=== PATIENT | male | born 1955 | race Caucasian/White ===

== ENCOUNTER 2019-10-10 11:22 | Outpatient (CLI) | payer OTHER | END 2019-10-10 11:23 | disposition home or self-care (01) | LOC: LAB 11:22 | PROVIDERS: ATTEND Internal Medicine | DX: E87.5 Hyperkalemia (principal) | CPT/HCPCS: 36415; 84132 ==

== ENCOUNTER 2022-12-18 14:51 | Outpatient (CLI) | payer MEDICARE, OTHER | END 2022-12-18 23:59 | disposition short-term general hospital (02) | LOC: EMS 14:51 | DX: E11.65 Type 2 diabetes mellitus with hyperglycemia (principal); I10 Essential (primary) hypertension; R53.1 Weakness; R53.81 Other malaise | CPT/HCPCS: A0425; A0429 ==

== ENCOUNTER 2023-03-31 18:34 | Outpatient (CLI) | payer MEDICARE, OTHER | END 2023-03-31 23:59 | disposition critical access hospital (66) | LOC: EMS 18:34 | DX: R06.03 Acute respiratory distress (principal) | CPT/HCPCS: A0425; A0427 ==

== ENCOUNTER 2023-03-31 18:53 | Inpatient (IN) | payer MEDICARE, OTHER ==
[2023-03-31] MEDS ORDERED: NITROGLYCERIN 50 MG/250 ML 50 MG/250 ML BOTTLE IV STA (18:59)
[2023-03-31] MEDS ORDERED: FUROSEMIDE 40 MG/4 ML VIAL IVP STA (18:59)
[2023-03-31] MEDS ORDERED: NITROGLYCERIN SL 0.4 MG TABLET SL STA (18:59)
--- NOTE | 2023-03-31 19:03 | ED Physician Documentation ---
PD HPI DYSPNEA - Stated complaint Stated Complaint: DIFFICULTY BREATHING - Chief complaint Chief Complaint: Resp - History obtained from History obtained from: Patient, EMS - Additional information Additional information: 67-year-old gentleman with history of A-fib on xarelto, MD, hypertension, hypercholesterolemia, and diabetes. He has had pedal edema for the last 4 weeks or so that is worsening over the last 2 days has had chest congestion worsening trouble breathing. It is not associated with fever or chest pain. On EMS arrival they found him to have a saturation of 82% on room air with respiratory distress. On route he received a DuoNeb, 40 mg of IV Lasix, and 25 mg of IV diltiazem for rapid atrial fibrillation and was placed on CPAP with significant improvement in his symptoms. PD PAST MEDICAL HISTORY - Past Medical History Cardiovascular: Hypertension, High cholesterol, Atrial fibrillation Respiratory: None Endocrine/Autoimmune: Type 2 diabetes GI: None : None HEENT: None Psych: None Musculoskeletal: None Derm: None - Past Surgical History General: Hiatal hernia repair - Present Medications Home Medications: Ambulatory Orders Medication Instructions Recorded Confirmed Atorvastatin [Lipitor] 40 mg ORAL DAILY 03/31/23 03/31/23 Insulin Glargine [Lantus Solostar] 12 unit SUBQ QPM 03/31/23 03/31/23 Metoprolol Tartrate [Lopressor] 50 mg PO BID 03/31/23 03/31/23 Rivaroxaban [Xarelto] 20 mg PO QPM 03/31/23 03/31/23 lisinopriL [Zestril] 5 mg PO DAILY 03/31/23 03/31/23 metFORMIN [Glucophage] 500 mg PO BIDWM 03/31/23 03/31/23 - Allergies Allergies/Adverse Reactions: Allergies Allergy/AdvReac Type Severity Reaction Status Date / Time piperacillin [From Zosyn] Allergy Rash Verified 03/31/23 19:03 tazobactam [From Zosyn] Allergy Rash Verified 03/31/23 19:03 PD ED PE NORMAL - Vitals Vital signs reviewed: Yes - General General: Other (He is tachypneic but speaking in full sentences. ) - HEENT HEENT: PERRL, EOMI - Neck Neck: Supple, no meningeal sign, No bony TTP - Cardiac Cardiac: Other (Irregularly irregular. No clear murmur but heart sounds somewhat obfuscated by breath sounds.) - Respiratory Respiratory: Other (Rhonchorous diminished and wheezy throughout) - Abdomen Abdomen: Non tender - Back Back: No CVA TTP, No spinal TTP - Derm Derm: Normal color, Warm and dry - Extremities Extremities: Other (4+ pitting pedal edema to mid thigh, Symmetric) - Neuro Neuro: Alert and oriented X 3, Normal speech Results - Vitals Vitals: Vital Signs - 24 hr 03/31/23 03/31/23 03/31/23 18:55 19:10 19:18 Temperature 36.5 C Heart Rate 87 90 91 Respiratory 32 H 24 28 H Rate Blood Pressure 153/73 H 136/83 H O2 Saturation 95 96 If not protocol 4 4 : Oxygen Flow, liters/minute 03/31/23 19:37 Temperature Heart Rate 83 Respiratory 18 Rate Blood Pressure 129/72 O2 Saturation 96 If not protocol 4 : Oxygen Flow, liters/minute Oxygen O2 Source Nasal cannula Oxygen Flow Rate 4 - EKG (time done) 1858 EKG releavant findings:: EKG personally interpreted by author of this note. Relevant findings are: Rate: Rate (enter#) (85) Rhythm: Atrial fibrillation [place]: Normal Ischemia: Q waves (v1-v3), Non specific changes. No: ST elevation c/w ischemia, ST depression Compare to prior EKG: Old EKG unavailable Computer interpretation: Agree with computer - Labs Labs: Laboratory Tests 03/31/23 03/31/23 03/31/23 19:04 19:09 19:09 WBC 11.1 H RBC 4.96 Hgb 14.6 Hct 45.7 MCV 92.1 MCH 29.4 MCHC 31.9 L RDW 14.5 Plt Count 241 MPV 10.5 Neut # (Auto) 8.5 H Lymph # (Auto) 1.8 Scott # (Auto) 0.5 Eos # (Auto) 0.2 Baso # (Auto) 0.0 Absolute Nucleated RBC 0.00 Nucleated RBC % 0.0 Sodium 138 Potassium 3.5 Chloride 107 Carbon Dioxide 21 Anion Gap 10.0 BUN 21 H Creatinine 1.0 Estimated GFR (MDRD) 74 L Glucose 331 H POC Whole Bld Glucose 344 H Calcium 8.6 Phosphorus 4.5 Magnesium 1.5 L Total Bilirubin 0.9 AST 24 ALT 33 Alkaline Phosphatase 112 Troponin I High Sens B-Natriuretic Peptide Total Protein 7.5 Albumin 3.9 Globulin 3.6 Albumin/Globulin Ratio 1.1 03/31/23 03/31/23 19:09 19:09 WBC RBC Hgb Hct MCV MCH MCHC RDW Plt Count MPV Neut # (Auto) Lymph # (Auto) Scott # (Auto) Eos # (Auto) Baso # (Auto) Absolute Nucleated RBC Nucleated RBC % Sodium Potassium Chloride Carbon Dioxide Anion Gap BUN Creatinine Estimated GFR (MDRD) Glucose POC Whole Bld Glucose Calcium Phosphorus Magnesium Total Bilirubin AST ALT Alkaline Phosphatase Troponin I High Sens 14.6 B-Natriuretic Peptide 553 H Total Protein Albumin Globulin Albumin/Globulin Ratio - Rads (name of study) Single view chest x-ray demonstrates cardiomegaly and diffuse bilateral interstitial opacities suggestive of pulmonary edema/CHF Relevant Findings:: Final report received, EMP independent interpretation of test PD Medical Decision Making - ED course ED course: 67-year-old gentleman brought in by paramedics. Prehospital he was in respiratory distress with signs and symptoms of CHF and A-fib with RVR. Prehospital treatments with Lasix, diltiazem, and DuoNeb improved him significantly. He also received CPAP. We are able to de-escalate the CPAP on arrival which the patient did not like anyways. His A-fib with RVR had resolved, still in A-fib but rate controlled. Treatment in the emergency department consisted of another dose of IV Lasix, sublingual nitroglycerin and high-dose drip and an albuterol neb. He continued to improve and was on a nasal cannula. Telehospitalist paged for admission at 7:40 PM. He also received 8 units of IV insulin in the department for his blood sugar. CBC showing mild leukocytosis, otherwise unremarkable. CMP showing hyperglycemia at 331 and low magnesium at 1.5 which will be repleted IV. Troponin negative. BNP elevated at 553. Patient presented to Dr. Miller at 7:54 PM. He would like to DC the nitro drip so that the patient to be on the floor and patient is stable enough for that at this point. - Critical Care Time(min): 40 Time Includes: Direct patient care, Review records, Reassess patient, Document care, Coordinate care, Medical consult, Family consult for tx dec ( at bedside shortly after arrival.) Data interpretation: Labs, Pulse ox Procedures included in critical care time: Peripheral IV Procedures excluded from critical care time: EKG Departure - Departure Disposition: 66 [facility] DC/Xfer Clinical Impression: Atrial fibrillation with RVR CHF (congestive heart failure) Qualifiers: Heart failure type: unspecified Heart failure chronicity: acute Qualified Code(s): I50.9 - Heart failure, unspecified Pulmonary edema Qualifiers: Chronicity: acute Qualified Code(s): J81.0 - Acute pulmonary edema Uncontrolled type 2 diabetes mellitus Qualifiers: Glycemic state: with hyperglycemia Qualified Code(s): E11.65 - Type 2 diabetes mellitus with hyperglycemia Condition: Serious
--- OUTSIDE RECORDS SUMMARY | 2023-03-31 19:12 | EXTERNAL MEDICAL SUMMARY RPT | Continuity of Care Document ---
Author Name Unknown Address [address] [place] [address] Phone Organization [facility] Address [address] [place] [address] Phone Care Team Providers Care Morning Nanny Name Role Phone Unavailable Unavailable Unavailable Emma Angel Unavailable Unavailable Allergies and Intolerances date description facility type (no date) Mild [facility] (unknown) (no date) piperacillin [facility] (unknown) (no date) tazobactam [facility] (unknown) Medications date description facility 2023-01-18 00:00 Cefadroxil [facility] 2023-01-18 00:00 Metoprolol Tartrate [facility] ital Problems date description facility 2023-01-15 00:00 Sepsis [facility] 2023-01-15 00:00 Atrial fibrillation with rapid ventricular response [facility] 2023-01-15 00:00 Cellulitis of left lower extrem ity [facility] 2023-01-16 00:00 Thrombocytopenia [facility] 2023-01-16 00:00 Hyponatremia [facility] 2023-01-16 00:00 Elevated troponin level [facility] 2023-01-16 12:01 Sepsis, unspecified organism [facility] 2023-01-16 12:01 Thrombocytopenia, unspecified [facility] 2023-01-16 12:01 Hypo-osmolality and hyponatremi [facility] 2023-01-16 12:01 Unspecified atrial fibrillation [facility] 2023-01-16 12:01 Cellulitis of left lower limb [facility] 2023-01-16 12:01 Hyperglycemia, unspecified [facility] 2023-01-16 12:01 Other specified abnormalities o f plasma proteins [facility] 2023-01-16 12:03 Sepsis, unspecified organism [facility] 2023-01-16 12:03 Thrombocytopenia, unspecified [facility] 2023-01-16 12:03 Hypo-osmolality and hyponatremi [facility] 2023-01-16 12:03 Unspecified atrial fibrillation [facility] 2023-01-16 12:03 Cellulitis of left lower limb [facility] 2023-01-16 12:03 Hyperglycemia, unspecified [facility] 2023-01-16 12:03 Other specified abnormalities o f plasma proteins [facility] 2023-01-16 12:22 Sepsis, unspecified organism [facility] 2023-01-16 12:22 Thrombocytopenia, unspecified [facility] 2023-01-16 12:22 Hypo-osmolality and hyponatremi [facility] 2023-01-16 12:22 Unspecified atrial fibrillation [facility] 2023-01-16 12:22 Cellulitis of left lower limb [facility] 2023-01-16 12:22 Hyperglycemia, unspecified [facility] 2023-01-16 12:22 Other specified abnormalities o f plasma proteins [facility] 2023-01-16 14:03 Sepsis, unspecified organism [facility] 2023-01-16 14:03 Thrombocytopenia, unspecified [facility] 2023-01-16 14:03 Hypo-osmolality and hyponatremi [facility] 2023-01-16 14:03 Unspecified atrial fibrillation [facility] 2023-01-16 14:03 Cellulitis of left lower limb [facility] 2023-01-16 14:03 Hyperglycemia, unspecified [facility] 2023-01-16 14:03 Other specified abnormalities o plasma proteins [facility] 2023-01-16 14:04 Sepsis, unspecified organism [facility] 2023-01-16 14:04 Thrombocytopenia, unspecified [facility] 2023-01-16 14:04 Hypo-osmolality and hyponatremi [facility] 2023-01-16 14:04 Unspecified atrial fibrillation [facility] 2023-01-16 14:04 Cellulitis of left lower limb [facility] 2023-01-16 14:04 Hyperglycemia, unspecified [facility] 2023-01-16 14:04 Other specified abnormalities o plasma proteins [facility] 2023-01-17 06:48 Sepsis, unspecified organism [facility] 2023-01-17 06:48 Thrombocytopenia, unspecified [facility] 2023-01-17 06:48 Hypo-osmolality and hyponatremi [facility] 2023-01-17 06:48 Unspecified atrial fibrillation [facility] 2023-01-17 06:48 Cellulitis of left lower limb [facility] 2023-01-17 06:48 Hyperglycemia, unspecified [facility] 2023-01-17 06:48 Other specified abnormalities o f plasma proteins [facility] 2023-01-18 08:29 Sepsis, unspecified organism [facility] 2023-01-18 08:29 Thrombocytopenia, unspecified [facility] 2023-01-18 08:29 Hypo-osmolality and hyponatremi [facility] 2023-01-18 08:29 Unspecified atrial fibrillation [facility] 2023-01-18 08:29 Cellulitis of left lower limb [facility] 2023-01-18 08:29 Hyperglycemia, unspecified [facility] 2023-01-18 08:29 Other specified abnormalities o f plasma proteins [facility] 2023-01-18 08:35 Sepsis, unspecified organism [facility] 2023-01-18 08:35 Thrombocytopenia, unspecified [facility] 2023-01-18 08:35 Hypo-osmolality and hyponatremi [facility] 2023-01-18 08:35 Unspecified atrial fibrillation [facility] 2023-01-18 08:35 Cellulitis of left lower limb [facility] 2023-01-18 08:35 Hyperglycemia, unspecified [facility] 2023-01-18 08:35 Other specified abnormalities o plasma [facility] 2023-01-18 09:31 Sepsis, unspecified organism [facility] 2023-01-18 09:31 Thrombocytopenia, unspecified [facility] 2023-01-18 09:31 Hypo-osmolality and hyponatremi [facility] 2023-01-18 09:31 Unspecified atrial fibrillation [facility] 2023-01-18 09:31 Cellulitis of left lower limb [facility] 2023-01-18 09:31 Hyperglycemia, unspecified [facility] 2023-01-18 09:31 Other specified abnormalities o [facility] proteins [facility] 2023-01-18 09:38 Sepsis, unspecified organism [facility] 2023-01-18 09:38 Thrombocytopenia, unspecified [facility] 2023-01-18 09:38 Hypo-osmolality and hyponatremi [facility] 2023-01-18 09:38 Unspecified atrial fibrillation [facility] 2023-01-18 09:38 Cellulitis of left lower limb [facility] 2023-01-18 09:38 Hyperglycemia, unspecified [facility] 2023-01-18 09:38 Other specified abnormalities o f plasma proteins [facility] 2023-01-18 09:58 Sepsis, unspecified organism [facility] 2023-01-18 09:58 Thrombocytopenia, unspecified [facility] 2023-01-18 09:58 Hypo-osmolality and hyponatremi [facility] 2023-01-18 09:58 Unspecified atrial fibrillation [facility] 2023-01-18 09:58 Cellulitis of left lower limb [facility] 2023-01-18 09:58 Hyperglycemia, unspecified [facility] 2023-01-18 09:58 Other specified abnormalities o f plasma proteins [facility] 2023-01-18 16:32 Sepsis, unspecified organism [facility] 2023-01-18 16:32 Thrombocytopenia, unspecified [facility] 2023-01-18 16:32 Hypo-osmolality and hyponatremi [facility] 2023-01-18 16:32 Unspecified atrial fibrillation [facility] 2023-01-18 16:32 Cellulitis of left lower limb [facility] 2023-01-18 16:32 Hyperglycemia, unspecified [facility] 2023-01-18 16:32 Other specified abnormalities o f [facility] Procedures date description facility 2023-01-15 00:00 US arterial duplex LE LT [facility] 2023-01-16 00:00 XR tibia fibula 2V [facility] 2023-01-15 00:00 X-ray of chest, single view [facility] 2023-01-16 00:00 XR ankle left, [facility] 2023-01-16 00:00 X-ray of left foot, two views [facility] Results/Labs test date author facility value unit interpretation Result panel 1 (unknown) (no date) (unknown) [facility] (no value) (units unknown) (unknown) Result panel 2 (unknown) (no date) (unknown) [facility] (no value) (units unknown) (unknown) Result panel 3 (unknown) (no date) (unknown) [facility] (no value) (units unknown) (unknown) Result panel 4 (unknown) (no date) (unknown) [facility] (no value) (units unknown) (unknown) Result panel 5 (unknown) (no date) (unknown) [facility] (no value) (units unknown) (unknown) Result panel 6 (unknown) (no date) (unknown) [facility] (no value) (units unknown) (unknown) Result panel 7 (unknown) (no date) (unknown) [facility] (no value) (units unknown) (unknown) Result panel 8 (unknown) (no date) (unknown) [facility] (no value) (units unknown) (unknown) Result panel 9 (unknown) (no date) (unknown) [facility] (no value) (units unknown) (unknown) Result panel 10 (unknown) (no date) (unknown) [facility] (no value) (units unknown) (unknown) Result panel 11 (unknown) (no date) (unknown) [facility] (no value) (units unknown) (unknown) Result panel 12 (unknown) (no date) (unknown) [facility] (no value) (units unknown) (unknown) Result panel 13 (unknown) (no date) (unknown) [facility] (no value) (units unknown) (unknown) Result panel 14 (unknown) (no date) (unknown) [facility] (no value) (units unknown) (unknown) Result panel 15 (unknown) (no date) (unknown) [facility] (no value) (units unknown) (unknown) Result panel 16 (unknown) (no date) (unknown) [facility] (no value) (units unknown) (unknown) Result panel 17 (unknown) (no date) (unknown) [facility] (no value) (units unknown) (unknown) Result panel 18 (unknown) (no date) (unknown) [facility] (no value) (units unknown) (unknown) Result panel 19 (unknown) (no date) (unknown) [facility] (no value) (units unknown) (unknown) Result panel 20 (unknown) (no date) (unknown) [facility] (no value) (units unknown) (unknown) Result panel 21 (unknown) (no date) (unknown) [facility] (no value) (units unknown) (unknown) Result panel 22 (unknown) (no date) (unknown) [facility] (no value) (units unknown) (unknown) Result panel 23 (unknown) (no date) (unknown) [facility] (no value) (units unknown) (unknown) Result panel 24 (unknown) (no date) (unknown) [facility] (no value) (units unknown) (unknown) Result panel 25 (unknown) (no date) (unknown) [facility] (no value) (units unknown) (unknown) Result panel 26 (unknown) (no date) (unknown) [facility] (no value) (units unknown) (unknown) Result panel 27 (unknown) (no date) (unknown) [facility] (no value) (units unknown) (unknown) Result panel 28 (unknown) (no date) (unknown) [facility] (no value) (units unknown) (unknown) Result panel 29 (unknown) (no date) (unknown) [facility] (no value) (units unknown) (unknown) Result panel 30 (unknown) (no date) (unknown) [facility] (no value) (units unknown) (unknown) Result panel 31 (unknown) (no date) (unknown) [facility] (no value) (units unknown) (unknown) Result panel 32 (unknown) (no date) (unknown) [facility] (no value) (units unknown) (unknown) Result panel 33 (unknown) (no date) (unknown) [facility] (no value) (units unknown) (unknown) Result panel 34 (unknown) (no date) (unknown) [facility] (no value) (units unknown) (unknown) Result panel 35 (unknown) (no date) (unknown) [facility] (no value) (units unknown) (unknown) Result panel 36 (unknown) (no date) (unknown) [facility] (no value) (units unknown) (unknown) Result panel 37 (unknown) (no date) (unknown) [facility] (no value) (units unknown) (unknown) Result panel 38 (unknown) (no date) (unknown) [facility] (no value) (units unknown) (unknown) Result panel 39 (unknown) (no date) (unknown) [facility] (no value) (units unknown) (unknown) Result panel 40 (unknown) (no date) (unknown) [facility] (no value) (units unknown) (unknown) Result panel 41 (unknown) (no date) (unknown) [facility] (no value) (units unknown) (unknown) Result panel 42 (unknown) (no date) (unknown) [facility] (no value) (units unknown) (unknown) Result panel 43 (unknown) (no date) (unknown) [facility] (no value) (units unknown) (unknown) Result panel 44 (unknown) (no date) (unknown) [facility] (no value) (units unknown) (unknown) Result panel 45 (unknown) (no date) (unknown) [facility] (no value) (units unknown) (unknown) Result panel 46 (unknown) (no date) (unknown) [facility] (no value) (units unknown) (unknown) Result panel 47 (unknown) (no date) (unknown) [facility] (no value) (units unknown) (unknown) Result panel 48 (unknown) (no date) (unknown) [facility] (no value) (units unknown) (unknown) Result panel 49 (unknown) (no date) (unknown) [facility] (no value) (units unknown) (unknown) Result panel 50 (unknown) (no date) (unknown) [facility] (no value) (units unknown) (unknown) Result panel 51 (unknown) (no date) (unknown) [facility] (no value) (units unknown) (unknown) Result panel 52 (unknown) (no date) (unknown) [facility] (no value) (units unknown) (unknown) Result panel 53 (unknown) (no date) (unknown) [facility] (no value) (units unknown) (unknown) Result panel 54 (unknown) (no date) (unknown) [facility] (no value) (units unknown) (unknown) Result panel 55 (unknown) (no date) (unknown) [facility] (no value) (units unknown) (unknown) Result panel 56 (unknown) (no date) (unknown) [facility] (no value) (units unknown) (unknown) Result panel 57 (unknown) (no date) (unknown) [facility] (no value) (units unknown) (unknown) Result panel 58 (unknown) (no date) (unknown) [facility] (no value) (units unknown) (unknown) Result panel 59 (unknown) (no date) (unknown) [facility] (no value) (units unknown) (unknown) Result panel 60 (unknown) (no date) (unknown) [facility] (no value) (units unknown) (unknown) Result panel 61 (unknown) (no date) (unknown) [facility] (no value) (units unknown) (unknown) Result panel 62 (unknown) (no date) (unknown) [facility] (no value) (units unknown) (unknown) Result panel 63 (unknown) (no date) (unknown) [facility] (no value) (units unknown) (unknown) Result panel 64 (unknown) (no date) (unknown) [facility] (no value) (units unknown) (unknown) Result panel 65 (unknown) (no date) (unknown) [facility] (no value) (units unknown) (unknown) Result panel 66 (unknown) (no date) (unknown) [facility] (no value) (units unknown) (unknown) Result panel 67 (unknown) (no date) (unknown) [facility] (no value) (units unknown) (unknown) Result panel 68 (unknown) (no date) (unknown) [facility] (no value) (units unknown) (unknown) Result panel 69 (unknown) (no date) (unknown) [facility] (no value) (units unknown) (unknown) Result panel 70 (unknown) (no date) (unknown) [facility] (no value) (units unknown) (unknown) Result panel 71 (unknown) (no date) (unknown) [facility] (no value) (units unknown) (unknown) Result panel 72 (unknown) (no date) (unknown) [facility] (no value) (units unknown) (unknown) Result panel 73 (unknown) (no date) (unknown) [facility] (no value) (units unknown) (unknown) Result panel 74 (unknown) (no date) (unknown) [facility] (no value) (units unknown) (unknown) Result panel 75 (unknown) (no date) (unknown) [facility] (no value) (units unknown) (unknown) Result panel 76 (unknown) (no date) (unknown) [facility] (no value) (units unknown) (unknown) Result panel 77 (unknown) (no date) (unknown) [facility] (no value) (units unknown) (unknown) Result panel 78 (unknown) (no date) (unknown) [facility] (no value) (units unknown) (unknown) Result panel 79 (unknown) (no date) (unknown) [facility] (no value) (units unknown) (unknown) Result panel 80 (unknown) (no date) (unknown) [facility] (no value) (units unknown) (unknown) Result panel 81 (unknown) (no date) (unknown) [facility] (no value) (units unknown) (unknown) Result panel 82 (unknown) (no date) (unknown) [facility] (no value) (units unknown) (unknown) Result panel 83 (unknown) (no date) (unknown) [facility] (no value) (units unknown) (unknown) Result panel 84 (unknown) (no date) (unknown) [facility] (no value) (units unknown) (unknown) Result panel 85 (unknown) (no date) (unknown) [facility] (no value) (units unknown) (unknown) Result panel 86 (unknown) (no date) (unknown) [facility] (no value) (units unknown) (unknown) Result panel 87 (unknown) (no date) (unknown) [facility] (no value) (units unknown) (unknown) Result panel 88 (unknown) (no date) (unknown) [facility] (no value) (units unknown) (unknown) Result panel 89 (unknown) (no date) (unknown) [facility] (no value) (units unknown) (unknown) Result panel 90 (unknown) (no date) (unknown) [facility] (no value) (units unknown) (unknown) Result panel 91 (unknown) (no date) (unknown) [facility] (no value) (units unknown) (unknown) Result panel 92 (unknown) (no date) (unknown) [facility] (no value) (units unknown) (unknown) Result panel 93 (unknown) (no date) (unknown) [facility] (no value) (units unknown) (unknown) Result panel 94 (unknown) (no date) (unknown) [facility] (no value) (units unknown) (unknown) Result panel 95 (unknown) (no date) (unknown) [facility] (no value) (units unknown) (unknown) Result panel 96 (unknown) (no date) (unknown) [facility] (no value) (units unknown) (unknown) Result panel 97 (unknown) (no date) (unknown) [facility] (no value) (units unknown) (unknown) Result panel 98 (unknown) (no date) (unknown) [facility] (no value) (units unknown) (unknown) Result panel 99 (unknown) (no date) (unknown) [facility] (no value) (units unknown) (unknown) Result panel 100 (unknown) (no date) (unknown) [facility] (no value) (units unknown) (unknown) Result panel 101 (unknown) (no date) (unknown) [facility] (no value) (units unknown) (unknown) Result panel 102 (unknown) (no date) (unknown) [facility] (no value) (units unknown) (unknown) Result panel 103 (unknown) (no date) (unknown) [facility] (no value) (units unknown) (unknown) Result panel 104 (unknown) (no date) (unknown) [facility] (no value) (units unknown) (unknown) Result panel 105 (unknown) (no date) (unknown) [facility] (no value) (units unknown) (unknown) Result panel 106 (unknown) (no date) (unknown) [facility] (no value) (units unknown) (unknown) Result panel 107 (unknown) (no date) (unknown) [facility] (no value) (units unknown) (unknown) Result panel 108 (unknown) (no date) (unknown) [facility] (no value) (units unknown) (unknown) Result panel 109 (unknown) (no date) (unknown) [facility] (no value) (units unknown) (unknown) Result panel 110 (unknown) (no date) (unknown) [facility] (no value) (units unknown) (unknown) Result panel 111 (unknown) (no date) (unknown) [facility] (no value) (units unknown) (unknown) Result panel 112 (unknown) (no date) (unknown) [facility] (no value) (units unknown) (unknown) Result panel 113 (unknown) (no date) (unknown) [facility] (no value) (units unknown) (unknown) Result panel 114 (unknown) (no date) (unknown) [facility] (no value) (units unknown) (unknown) Result panel 115 (unknown) (no date) (unknown) [facility] (no value) (units unknown) (unknown) Result panel 116 (unknown) (no date) (unknown) [facility] (no value) (units unknown) (unknown) Result panel 117 (unknown) (no date) (unknown) [facility] (no value) (units unknown) (unknown) Result panel 118 (unknown) (no date) (unknown) [facility] (no value) (units unknown) (unknown) Result panel 119 (unknown) (no date) (unknown) [facility] (no value) (units unknown) (unknown) Result panel 120 (unknown) (no date) (unknown) [facility] (no value) (units unknown) (unknown) Result panel 121 (unknown) (no date) (unknown) [facility] (no value) (units unknown) (unknown) Result panel 122 (unknown) (no date) (unknown) [facility] (no value) (units unknown) (unknown) Result panel 123 (unknown) (no date) (unknown) [facility] (no value) (units unknown) (unknown) Result panel 124 (unknown) (no date) (unknown) [facility] (no value) (units unknown) (unknown) Result panel 125 (unknown) (no date) (unknown) [facility] (no value) (units unknown) (unknown) Result panel 126 (unknown) (no date) (unknown) [facility] (no value) (units unknown) (unknown) Result panel 127 (unknown) (no date) (unknown) [facility] (no value) (units unknown) (unknown) Result panel 128 (unknown) (no date) (unknown) [facility] (no value) (units unknown) (unknown) Result panel 129 (unknown) (no date) (unknown) [facility] (no value) (units unknown) (unknown) Result panel 130 (unknown) (no date) (unknown) [facility] (no value) (units unknown) (unknown) Result panel 131 (unknown) (no date) (unknown) [facility] (no value) (units unknown) (unknown) Result panel 132 (unknown) (no date) (unknown) [facility] (no value) (units unknown) (unknown) Result panel 133 (unknown) (no date) (unknown) [facility] (no value) (units unknown) (unknown) Result panel 134 (unknown) (no date) (unknown) [facility] (no value) (units unknown) (unknown) Result panel 135 (unknown) (no date) (unknown) [facility] (no value) (units unknown) (unknown) Result panel 136 (unknown) (no date) (unknown) [facility] (no value) (units unknown) (unknown) Result panel 137 (unknown) (no date) (unknown) [facility] (no value) (units unknown) (unknown) Result panel 138 (unknown) (no date) (unknown) [facility] (no value) (units unknown) (unknown) Result panel 139 (unknown) (no date) (unknown) [facility] (no value) (units unknown) (unknown) Result panel 140 (unknown) (no date) (unknown) [facility] (no value) (units unknown) (unknown) Result panel 141 (unknown) (no date) (unknown) [facility] (no value) (units unknown) (unknown) Result panel 142 (unknown) (no date) (unknown) [facility] (no value) (units unknown) (unknown) Result panel 143 (unknown) (no date) (unknown) [facility] (no value) (units unknown) (unknown) Result panel 144 (unknown) (no date) (unknown) [facility] (no value) (units unknown) (unknown) Result panel 145 (unknown) (no date) (unknown) [facility] (no value) (units unknown) (unknown) Result panel 146 (unknown) (no date) (unknown) [facility] (no value) (units unknown) (unknown) Result panel 147 (unknown) (no date) (unknown) [facility] (no value) (units unknown) (unknown) Result panel 148 (unknown) (no date) (unknown) [facility] (no value) (units unknown) (unknown) Result panel 149 (unknown) (no date) (unknown) [facility] (no value) (units unknown) (unknown) Result panel 150 (unknown) (no date) (unknown) [facility] (no value) (units unknown) (unknown) Result panel 151 (unknown) (no date) (unknown) [facility] (no value) (units unknown) (unknown) Result panel 152 (unknown) (no date) (unknown) [facility] (no value) (units unknown) (unknown) Result panel 153 (unknown) (no date) (unknown) [facility] (no value) (units unknown) (unknown) Result panel 154 (unknown) (no date) (unknown) [facility] (no value) (units unknown) (unknown) Result panel 155 (unknown) (no date) (unknown) [facility] (no value) (units unknown) (unknown) Result panel 156 (unknown) (no date) (unknown) [facility] (no value) (units unknown) (unknown) Result panel 157 (unknown) (no date) (unknown) [facility] (no value) (units unknown) (unknown) Result panel 158 (unknown) (no date) (unknown) [facility] (no value) (units unknown) (unknown) Result panel 159 (unknown) (no date) (unknown) [facility] (no value) (units unknown) (unknown) Result panel 160 (unknown) (no date) (unknown) [facility] (no value) (units unknown) (unknown) Result panel 161 (unknown) (no date) (unknown) [facility] (no value) (units unknown) (unknown) Result panel 162 (unknown) (no date) (unknown) [facility] (no value) (units unknown) (unknown) Result panel 163 (unknown) (no date) (unknown) [facility] (no value) (units unknown) (unknown) Result panel 164 (unknown) (no date) (unknown) [facility] (no value) (units unknown) (unknown) Result panel 165 (unknown) (no date) (unknown) [facility] (no value) (units unknown) (unknown) Result panel 166 (unknown) (no date) (unknown) [facility] (no value) (units unknown) (unknown) Result panel 167 (unknown) (no date) (unknown) [facility] (no value) (units unknown) (unknown) Result panel 168 (unknown) (no date) (unknown) [facility] (no value) (units unknown) (unknown) Result panel 169 (unknown) (no date) (unknown) [facility] (no value) (units unknown) (unknown) Result panel 170 (unknown) (no date) (unknown) [facility] (no value) (units unknown) (unknown) Result panel 171 (unknown) (no date) (unknown) [facility] (no value) (units unknown) (unknown) Result panel 172 (unknown) (no date) (unknown) [facility] (no value) (units unknown) (unknown) Result panel 173 (unknown) (no date) (unknown) [facility] (no value) (units unknown) (unknown) Result panel 174 (unknown) (no date) (unknown) [facility] (no value) (units unknown) (unknown) Result panel 175 (unknown) (no date) (unknown) [facility] (no value) (units unknown) (unknown) Result panel 176 (unknown) (no date) (unknown) [facility] (no value) (units unknown) (unknown) Result panel 177 (unknown) (no date) (unknown) [facility] (no value) (units unknown) (unknown) Result panel 178 (unknown) (no date) (unknown) [facility] (no value) (units unknown) (unknown) Result panel 179 (unknown) (no date) (unknown) [facility] (no value) (units unknown) (unknown) Result panel 180 (unknown) (no date) (unknown) [facility] (no value) (units unknown) (unknown) Result panel 181 (unknown) (no date) (unknown) [facility] (no value) (units unknown) (unknown) Result panel 182 (unknown) (no date) (unknown) [facility] (no value) (units unknown) (unknown) Result panel 183 (unknown) (no date) (unknown) [facility] (no value) (units unknown) (unknown) Result panel 184 (unknown) (no date) (unknown) [facility] (no value) (units unknown) (unknown) Result panel 185 (unknown) (no date) (unknown) [facility] (no value) (units unknown) (unknown) Result panel 186 (unknown) (no date) (unknown) [facility] (no value) (units unknown) (unknown) Result panel 187 (unknown) (no date) (unknown) [facility] (no value) (units unknown) (unknown) Result panel 188 (unknown) (no date) (unknown) [facility] (no value) (units unknown) (unknown) Result panel 189 (unknown) (no date) (unknown) [facility] (no value) (units unknown) (unknown) Result panel 190 (unknown) (no date) (unknown) [facility] (no value) (units unknown) (unknown) Result panel 191 (unknown) (no date) (unknown) [facility] (no value) (units unknown) (unknown) Result panel 192 (unknown) (no date) (unknown) [facility] (no value) (units unknown) (unknown) Result panel 193 (unknown) (no date) (unknown) [facility] (no value) (units unknown) (unknown) Result panel 194 (unknown) (no date) (unknown) [facility] (no value) (units unknown) (unknown) Result panel 195 (unknown) (no date) (unknown) [facility] (no value) (units unknown) (unknown) Result panel 196 (unknown) (no date) (unknown) [facility] (no value) (units unknown) (unknown) Result panel 197 (unknown) (no date) (unknown) [facility] (no value) (units unknown) (unknown) Result panel 198 (unknown) (no date) (unknown) [facility] (no value) (units unknown) (unknown) Result panel 199 (unknown) (no date) (unknown) [facility] (no value) (units unknown) (unknown) Result panel 200 (unknown) (no date) (unknown) [facility] (no value) (units unknown) (unknown) Result panel 201 (unknown) (no date) (unknown) [facility] (no value) (units unknown) (unknown) Result panel 202 (unknown) (no date) (unknown) [facility] (no value) (units unknown) (unknown) Result panel 203 (unknown) (no date) (unknown) [facility] (no value) (units unknown) (unknown) Result panel 204 (unknown) (no date) (unknown) [facility] (no value) (units unknown) (unknown) Result panel 205 (unknown) (no date) (unknown) [facility] (no value) (units unknown) (unknown) Result panel 206 (unknown) (no date) (unknown) [facility] (no value) (units unknown) (unknown) Result panel 207 (unknown) (no date) (unknown) [facility] (no value) (units unknown) (unknown) Result panel 208 (unknown) (no date) (unknown) [facility] (no value) (units unknown) (unknown) Result panel 209 (unknown) (no date) (unknown) [facility] (no value) (units unknown) (unknown) Result panel 210 (unknown) (no date) (unknown) [facility] (no value) (units unknown) (unknown) Result panel 211 (unknown) (no date) (unknown) [facility] (no value) (units unknown) (unknown) Result panel 212 (unknown) (no date) (unknown) [facility] (no value) (units unknown) (unknown) Result panel 213 (unknown) (no date) (unknown) [facility] (no value) (units unknown) (unknown) Result panel 214 (unknown) (no date) (unknown) [facility] (no value) (units unknown) (unknown) Result panel 215 (unknown) (no date) (unknown) [facility] (no value) (units unknown) (unknown) Result panel 216 (unknown) (no date) (unknown) [facility] (no value) (units unknown) (unknown) Result panel 217 (unknown) (no date) (unknown) [facility] (no value) (units unknown) (unknown) Result panel 218 (unknown) (no date) (unknown) [facility] (no value) (units unknown) (unknown) Result panel 219 (unknown) (no date) (unknown) [facility] (no value) (units unknown) (unknown) Result panel 220 (unknown) (no date) (unknown) [facility] (no value) (units unknown) (unknown) Result panel 221 (unknown) (no date) (unknown) [facility] (no value) (units unknown) (unknown) Result panel 222 (unknown) (no date) (unknown) [facility] (no value) (units unknown) (unknown) Result panel 223 (unknown) (no date) (unknown) [facility] (no value) (units unknown) (unknown) Result panel 224 (unknown) (no date) (unknown) [facility] (no value) (units unknown) (unknown) Result panel 225 (unknown) (no date) (unknown) [facility] (no value) (units unknown) (unknown) Result panel 226 (unknown) (no date) (unknown) [facility] (no value) (units unknown) (unknown) Result panel 227 (unknown) (no date) (unknown) [facility] (no value) (units unknown) (unknown) Result panel 228 (unknown) (no date) (unknown) [facility] (no value) (units unknown) (unknown) Result panel 229 (unknown) (no date) (unknown) [facility] (no value) (units unknown) (unknown) Result panel 230 (unknown) (no date) (unknown) [facility] (no value) (units unknown) (unknown) Result panel 231 (unknown) (no date) (unknown) [facility] (no value) (units unknown) (unknown) Result panel 232 (unknown) (no date) (unknown) [facility] (no value) (units unknown) (unknown) Result panel 233 (unknown) (no date) (unknown) [facility] (no value) (units unknown) (unknown) Result panel 234 (unknown) (no date) (unknown) [facility] (no value) (units unknown) (unknown) Result panel 235 (unknown) (no date) (unknown) [facility] (no value) (units unknown) (unknown) Result panel 236 (unknown) (no date) (unknown) [facility] (no value) (units unknown) (unknown) Result panel 237 (unknown) (no date) (unknown) [facility] (no value) (units unknown) (unknown) Result panel 238 (unknown) (no date) (unknown) [facility] (no value) (units unknown) (unknown) Result panel 239 (unknown) (no date) (unknown) [facility] (no value) (units unknown) (unknown) Result panel 240 (unknown) (no date) (unknown) [facility] (no value) (units unknown) (unknown) Result panel 241 (unknown) (no date) (unknown) [facility] (no value) (units unknown) (unknown) Result panel 242 (unknown) (no date) (unknown) [facility] (no value) (units unknown) (unknown) Result panel 243 (unknown) (no date) (unknown) [facility] (no value) (units unknown) (unknown) Result panel 244 (unknown) (no date) (unknown) [facility] (no value) (units unknown) (unknown) Result panel 245 (unknown) (no date) (unknown) [facility] (no value) (units unknown) (unknown) Result panel 246 (unknown) (no date) (unknown) [facility] (no value) (units unknown) (unknown) Result panel 247 (unknown) (no date) (unknown) [facility] (no value) (units unknown) (unknown) Result panel 248 (unknown) (no date) (unknown) [facility] (no value) (units unknown) (unknown) Result panel 249 (unknown) (no date) (unknown) [facility] (no value) (units unknown) (unknown) Result panel 250 (unknown) (no date) (unknown) [facility] (no value) (units unknown) (unknown) Result panel 251 (unknown) (no date) (unknown) [facility] (no value) (units unknown) (unknown) Result panel 252 (unknown) (no date) (unknown) [facility] (no value) (units unknown) (unknown) Result panel 253 (unknown) (no date) (unknown) [facility] (no value) (units unknown) (unknown) Result panel 254 (unknown) (no date) (unknown) [facility] (no value) (units unknown) (unknown) Result panel 255 (unknown) (no date) (unknown) [facility] (no value) (units unknown) (unknown) Result panel 256 (unknown) (no date) (unknown) [facility] (no value) (units unknown) (unknown) Result panel 257 (unknown) (no date) (unknown) [facility] (no value) (units unknown) (unknown) Result panel 258 (unknown) (no date) (unknown) [facility] (no value) (units unknown) (unknown) Result panel 259 (unknown) (no date) (unknown) [facility] (no value) (units unknown) (unknown) Result panel 260 (unknown) (no date) (unknown) [facility] (no value) (units unknown) (unknown) Result panel 261 (unknown) (no date) (unknown) [facility] (no value) (units unknown) (unknown) Result panel 262 (unknown) (no date) (unknown) [facility] (no value) (units unknown) (unknown) Result panel 263 (unknown) (no date) (unknown) [facility] (no value) (units unknown) (unknown) Result panel 264 (unknown) (no date) (unknown) [facility] (no value) (units unknown) (unknown) Result panel 265 (unknown) (no date) (unknown) [facility] (no value) (units unknown) (unknown) Result panel 266 (unknown) (no date) (unknown) [facility] (no value) (units unknown) (unknown) Result panel 267 (unknown) (no date) (unknown) [facility] (no value) (units unknown) (unknown) Result panel 268 (unknown) (no date) (unknown) [facility] (no value) (units unknown) (unknown) Result panel 269 (unknown) (no date) (unknown) [facility] (no value) (units unknown) (unknown) Result panel 270 (unknown) (no date) (unknown) [facility] (no value) (units unknown) (unknown) Result panel 271 (unknown) (no date) (unknown) [facility] (no value) (units unknown) (unknown) Result panel 272 (unknown) (no date) (unknown) [facility] (no value) (units unknown) (unknown) Result panel 273 (unknown) (no date) (unknown) [facility] (no value) (units unknown) (unknown) Result panel 274 (unknown) (no date) (unknown) [facility] (no value) (units unknown) (unknown) Result panel 275 (unknown) (no date) (unknown) [facility] (no value) (units unknown) (unknown) Result panel 276 (unknown) (no date) (unknown) [facility] (no value) (units unknown) (unknown) Result panel 277 (unknown) (no date) (unknown) [facility] (no value) (units unknown) (unknown) Result panel 278 (unknown) (no date) (unknown) [facility] (no value) (units unknown) (unknown) Result panel 279 (unknown) (no date) (unknown) [facility] (no value) (units unknown) (unknown) Result panel 280 (unknown) (no date) (unknown) [facility] (no value) (units unknown) (unknown) Result panel 281 (unknown) (no date) (unknown) [facility] (no value) (units unknown) (unknown) Result panel 282 (unknown) (no date) (unknown) [facility] (no value) (units unknown) (unknown) Result panel 283 (unknown) (no date) (unknown) [facility] (no value) (units unknown) (unknown) Result panel 284 (unknown) (no date) (unknown) [facility] (no value) (units unknown) (unknown) Result panel 285 (unknown) (no date) (unknown) [facility] (no value) (units unknown) (unknown) Result panel 286 (unknown) (no date) (unknown) [facility] (no value) (units unknown) (unknown) Result panel 287 (unknown) (no date) (unknown) [facility] (no value) (units unknown) (unknown) Result panel 288 (unknown) (no date) (unknown) [facility] (no value) (units unknown) (unknown) Result panel 289 (unknown) (no date) (unknown) [facility] (no value) (units unknown) (unknown) Result panel 290 (unknown) (no date) (unknown) [facility] (no value) (units unknown) (unknown) Result panel 291 (unknown) (no date) (unknown) [facility] (no value) (units unknown) (unknown) Result panel 292 (unknown) (no date) (unknown) [facility] (no value) (units unknown) (unknown) Result panel 293 (unknown) (no date) (unknown) [facility] (no value) (units unknown) (unknown) Result panel 294 (unknown) (no date) (unknown) [facility] (no value) (units unknown) (unknown) Result panel 295 (unknown) (no date) (unknown) [facility] (no value) (units unknown) (unknown) Result panel 296 (unknown) (no date) (unknown) [facility] (no value) (units unknown) (unknown) Result panel 297 (unknown) (no date) (unknown) [facility] (no value) (units unknown) (unknown) Result panel 298 (unknown) (no date) (unknown) [facility] (no value) (units unknown) (unknown) Result panel 299 (unknown) (no date) (unknown) [facility] (no value) (units unknown) (unknown) Result panel 300 (unknown) (no date) (unknown) [facility] (no value) (units unknown) (unknown) Result panel 301 (unknown) (no date) (unknown) [facility] (no value) (units unknown) (unknown) Result panel 302 (unknown) (no date) (unknown) [facility] (no value) (units unknown) (unknown) Result panel 303 (unknown) (no date) (unknown) [facility] (no value) (units unknown) (unknown) Result panel 304 (unknown) (no date) (unknown) [facility] (no value) (units unknown) (unknown) Result panel 305 (unknown) (no date) (unknown) [facility] (no value) (units unknown) (unknown) Result panel 306 (unknown) (no date) (unknown) [facility] (no value) (units unknown) (unknown) Result panel 307 (unknown) (no date) (unknown) [facility] (no value) (units unknown) (unknown) Result panel 308 (unknown) (no date) (unknown) [facility] (no value) (units unknown) (unknown) Result panel 309 (unknown) (no date) (unknown) [facility] (no value) (units unknown) (unknown) Result panel 310 (unknown) (no date) (unknown) [facility] (no value) (units unknown) (unknown) Result panel 311 (unknown) (no date) (unknown) [facility] (no value) (units unknown) (unknown) Result panel 312 (unknown) (no date) (unknown) [facility] (no value) (units unknown) (unknown) Result panel 313 (unknown) (no date) (unknown) [facility] (no value) (units unknown) (unknown) Result panel 314 (unknown) (no date) (unknown) [facility] (no value) (units unknown) (unknown) Result panel 315 (unknown) (no date) (unknown) [facility] (no value) (units unknown) (unknown) Result panel 316 (unknown) (no date) (unknown) [facility] (no value) (units unknown) (unknown) Result panel 317 (unknown) (no date) (unknown) [facility] (no value) (units unknown) (unknown) Result panel 318 (unknown) (no date) (unknown) [facility] (no value) (units unknown) (unknown) Result panel 319 (unknown) (no date) (unknown) [facility] (no value) (units unknown) (unknown) Result panel 320 (unknown) (no date) (unknown) [facility] (no value) (units unknown) (unknown) Result panel 321 (unknown) (no date) (unknown) [facility] (no value) (units unknown) (unknown) Result panel 322 (unknown) (no date) (unknown) [facility] (no value) (units unknown) (unknown) Result panel 323 (unknown) (no date) (unknown) [facility] (no value) (units unknown) (unknown) Result panel 324 (unknown) (no date) (unknown) [facility] (no value) (units unknown) (unknown) Result panel 325 (unknown) (no date) (unknown) [facility] (no value) (units unknown) (unknown) Result panel 326 (unknown) (no date) (unknown) [facility] (no value) (units unknown) (unknown) Result panel 327 (unknown) (no date) (unknown) [facility] (no value) (units unknown) (unknown) Result panel 328 (unknown) (no date) (unknown) [facility] (no value) (units unknown) (unknown) Result panel 329 (unknown) (no date) (unknown) [facility] (no value) (units unknown) (unknown) Result panel 330 (unknown) (no date) (unknown) [facility] (no value) (units unknown) (unknown) Result panel 331 (unknown) (no date) (unknown) [facility] (no value) (units unknown) (unknown) Result panel 332 (unknown) (no date) (unknown) [facility] (no value) (units unknown) (unknown) Result panel 333 (unknown) (no date) (unknown) [facility] (no value) (units unknown) (unknown) Result panel 334 (unknown) (no date) (unknown) [facility] (no value) (units unknown) (unknown) Result panel 335 (unknown) (no date) (unknown) [facility] (no value) (units unknown) (unknown) Result panel 336 (unknown) (no date) (unknown) [facility] (no value) (units unknown) (unknown) Result panel 337 (unknown) (no date) (unknown) [facility] (no value) (units unknown) (unknown) Result panel 338 (unknown) (no date) (unknown) [facility] (no value) (units unknown) (unknown) Result panel 339 (unknown) (no date) (unknown) [facility] (no value) (units unknown) (unknown) Result panel 340 (unknown) (no date) (unknown) [facility] (no value) (units unknown) (unknown) Result panel 341 (unknown) (no date) (unknown) [facility] (no value) (units unknown) (unknown) Result panel 342 (unknown) (no date) (unknown) [facility] (no value) (units unknown) (unknown) Result panel 343 (unknown) (no date) (unknown) [facility] (no value) (units unknown) (unknown) Result panel 344 (unknown) (no date) (unknown) [facility] (no value) (units unknown) (unknown) Result panel 345 (unknown) (no date) (unknown) [facility] (no value) (units unknown) (unknown) Result panel 346 (unknown) (no date) (unknown) [facility] (no value) (units unknown) (unknown) Result panel 347 (unknown) (no date) (unknown) [facility] (no value) (units unknown) (unknown) Result panel 348 (unknown) (no date) (unknown) [facility] (no value) (units unknown) (unknown) Result panel 349 (unknown) (no date) (unknown) [facility] (no value) (units unknown) (unknown) Result panel 350 (unknown) (no date) (unknown) [facility] (no value) (units unknown) (unknown) Result panel 351 (unknown) (no date) (unknown) [facility] (no value) (units unknown) (unknown) Result panel 352 (unknown) (no date) (unknown) [facility] (no value) (units unknown) (unknown) Result panel 353 (unknown) (no date) (unknown) [facility] (no value) (units unknown) (unknown) Result panel 354 (unknown) (no date) (unknown) [facility] (no value) (units unknown) (unknown) Result panel 355 (unknown) (no date) (unknown) [facility] (no value) (units unknown) (unknown) Result panel 356 (unknown) (no date) (unknown) [facility] (no value) (units unknown) (unknown) Result panel 357 (unknown) (no date) (unknown) [facility] (no value) (units unknown) (unknown) Result panel 358 (unknown) (no date) (unknown) [facility] (no value) (units unknown) (unknown) Result panel 359 (unknown) (no date) (unknown) [facility] (no value) (units unknown) (unknown) Result panel 360 (unknown) (no date) (unknown) [facility] (no value) (units unknown) (unknown) Result panel 361 (unknown) (no date) (unknown) [facility] (no value) (units unknown) (unknown) Result panel 362 (unknown) (no date) (unknown) [facility] (no value) (units unknown) (unknown) Result panel 363 (unknown) (no date) (unknown) [facility] (no value) (units unknown) (unknown) Result panel 364 (unknown) (no date) (unknown) [facility] (no value) (units unknown) (unknown) Result panel 365 (unknown) (no date) (unknown) [facility] (no value) (units unknown) (unknown) Result panel 366 (unknown) (no date) (unknown) [facility] (no value) (units unknown) (unknown) Result panel 367 (unknown) (no date) (unknown) [facility] (no value) (units unknown) (unknown) Result panel 368 (unknown) (no date) (unknown) [facility] (no value) (units unknown) (unknown) Result panel 369 (unknown) (no date) (unknown) [facility] (no value) (units unknown) (unknown) Result panel 370 (unknown) (no date) (unknown) [facility] (no value) (units unknown) (unknown) Result panel 371 (unknown) (no date) (unknown) [facility] (no value) (units unknown) (unknown) Result panel 372 (unknown) (no date) (unknown) [facility] (no value) (units unknown) (unknown) Result panel 373 (unknown) (no date) (unknown) [facility] (no value) (units unknown) (unknown) Result panel 374 (unknown) (no date) (unknown) [facility] (no value) (units unknown) (unknown) Result panel 375 (unknown) (no date) (unknown) [facility] (no value) (units unknown) (unknown) Result panel 376 (unknown) (no date) (unknown) [facility] (no value) (units unknown) (unknown) Result panel 377 (unknown) (no date) (unknown) [facility] (no value) (units unknown) (unknown) Result panel 378 (unknown) (no date) (unknown) [facility] (no value) (units unknown) (unknown) Result panel 379 (unknown) (no date) (unknown) [facility] (no value) (units unknown) (unknown) Result panel 380 (unknown) (no date) (unknown) [facility] (no value) (units unknown) (unknown) Result panel 381 (unknown) (no date) (unknown) [facility] (no value) (units unknown) (unknown) Result panel 382 (unknown) (no date) (unknown) [facility] (no value) (units unknown) (unknown) Result panel 383 (unknown) (no date) (unknown) [facility] (no value) (units unknown) (unknown) Result panel 384 (unknown) (no date) (unknown) [facility] (no value) (units unknown) (unknown) Result panel 385 (unknown) (no date) (unknown) [facility] (no value) (units unknown) (unknown) Result panel 386 (unknown) (no date) (unknown) [facility] (no value) (units unknown) (unknown) Result panel 387 (unknown) (no date) (unknown) [facility] (no value) (units unknown) (unknown) Result panel 388 (unknown) (no date) (unknown) [facility] (no value) (units unknown) (unknown) Result panel 389 (unknown) (no date) (unknown) [facility] (no value) (units unknown) (unknown) Result panel 390 (unknown) (no date) (unknown) [facility] (no value) (units unknown) (unknown) Result panel 391 (unknown) (no date) (unknown) [facility] (no value) (units unknown) (unknown) Result panel 392 (unknown) (no date) (unknown) [facility] (no value) (units unknown) (unknown) Result panel 393 (unknown) (no date) (unknown) [facility] (no value) (units unknown) (unknown) Result panel 394 (unknown) (no date) (unknown) [facility] (no value) (units unknown) (unknown) Result panel 395 (unknown) (no date) (unknown) [facility] (no value) (units unknown) (unknown) Result panel 396 (unknown) (no date) (unknown) [facility] (no value) (units unknown) (unknown) Result panel 397 (unknown) (no date) (unknown) [facility] (no value) (units unknown) (unknown) Result panel 398 (unknown) (no date) (unknown) [facility] (no value) (units unknown) (unknown) Result panel 399 (unknown) (no date) (unknown) [facility] (no value) (units unknown) (unknown) Result panel 400 (unknown) (no date) (unknown) [facility] (no value) (units unknown) (unknown) Result panel 401 (unknown) (no date) (unknown) [facility] (no value) (units unknown) (unknown) Result panel 402 (unknown) (no date) (unknown) [facility] (no value) (units unknown) (unknown) Result panel 403 (unknown) (no date) (unknown) [facility] (no value) (units unknown) (unknown) Result panel 404 (unknown) (no date) (unknown) [facility] (no value) (units unknown) (unknown) Result panel 405 (unknown) (no date) (unknown) [facility] (no value) (units unknown) (unknown) Result panel 406 (unknown) (no date) (unknown) [facility] (no value) (units unknown) (unknown) Result panel 407 (unknown) (no date) (unknown) [facility] (no value) (units unknown) (unknown) Result panel 408 (unknown) (no date) (unknown) (unknown) (no value) (units unknown) (unknown) (unknown) (no date) (unknown) (unknown) [id number] (units unknown) (unknown) (unknown) (no date) (unknown) (unknown) 01/15/23 (units unknown) (unknown) (unknown) (no date) (unknown) (unknown) [address] [place] [address] (units unknown) (unknown) (unknown) (no date) (unknown) (unknown) Accession Number: [id number] (units unknown) (unknown) (unknown) (no date) (unknown) (unknown) Age/Sex: 67 / M Date of Service: (units unknown) (unknown) (unknown) (no date) (unknown) (unknown) [place] [address] (units unknown) (unknown) (unknown) (no date) (unknown) (unknown) Approved by: Reza Sanchez M.D. on 01/15/2023 at 16:03 (units unknown) (unknown) (unknown) (no date) (unknown) (unknown) Bones and chest wall: No suspicious bony lesions. Overlying soft tissues (units unknown) (unknown) (unknown) (no date) (unknown) (unknown) COMPARISON: [facility], CR, XR CHEST 1V, 12/19/2022, 16:16. (units unknown) (unknown) (unknown) (no date) (unknown) (unknown) : 1955 Acct:[id number] (units unknown) (unknown) (unknown) (no date) (unknown) (unknown) Dictated by: Reza Sanchez M.D. on 01/15/2023 at 16:03 (units unknown) (unknown) (unknown) (no date) (unknown) (unknown) FINDINGS: (units unknown) (unknown) (unknown) (no date) (unknown) (unknown) IMPRESSION: Mild pulmonary vascular congestion. No focal infiltrate, pleural (units unknown) (unknown) (unknown) (no date) (unknown) (unknown) INDICATIONS: chest pain (units unknown) (unknown) (unknown) (no date) (unknown) (unknown) [facility] (units unknown) (unknown) (unknown) (no date) (unknown) (unknown) Loc: ED (units unknown) (unknown) (unknown) (no date) (unknown) (unknown) Lungs and pleura: Mild pulmonary vascular congestion is seen. No definite (units unknown) (unknown) (unknown) (no date) (unknown) (unknown) Mediastinum: Mediastinal contours appear normal. Heart size is enlarged. (units unknown) (unknown) (unknown) (no date) (unknown) (unknown) Ordering Provider: Gayla Nunez D.O. (units unknown) (unknown) (unknown) (no date) (unknown) (unknown) PROCEDURE: XR CHEST 1V (units unknown) (unknown) (unknown) (no date) (unknown) (unknown) Patient: Arvind Brock MR#: [id number] (units unknown) (unknown) (unknown) (no date) (unknown) (unknown) Procedure: XR chest 1V (units unknown) (unknown) (unknown) (no date) (unknown) (unknown) Signed (units unknown) (unknown) (unknown) (no date) (unknown) (unknown) Surgical changes and devices: None. (units unknown) (unknown) (unknown) (no date) (unknown) (unknown) TECHNIQUE: One view of the chest was acquired. (units unknown) (unknown) (unknown) (no date) (unknown) (unknown) XRay Report (units unknown) (unknown) (unknown) (no date) (unknown) (unknown) appear (units unknown) (unknown) (unknown) (no date) (unknown) (unknown) effusion (units unknown) (unknown) (unknown) (no date) (unknown) (unknown) focal (units unknown) (unknown) (unknown) (no date) (unknown) (unknown) infiltrate. No pleural effusions or pneumothorax. (units unknown) (unknown) (unknown) (no date) (unknown) (unknown) or pneumothorax. (units unknown) (unknown) (unknown) (no date) (unknown) (unknown) unremarkable. (units unknown) (unknown) Result panel 409 (unknown) (no date) (unknown) (unknown) (no value) (units unknown) (unknown) (unknown) (no date) (unknown) (unknown) 0 /ul (unknown) (unknown) (no date) (unknown) (unknown) 0 /ul (unknown) (unknown) (no date) (unknown) (unknown) 0.0 % (unknown) (unknown) (no date) (unknown) (unknown) 0.3 % (unknown) (unknown) (no date) (unknown) (unknown) [id number] (units unknown) (unknown) (unknown) (no date) (unknown) (unknown) 01/15/23 15:26 (units unknown) (unknown) (unknown) (no date) (unknown) (unknown) 01/15/23 15:27 (units unknown) (unknown) (unknown) (no date) (unknown) (unknown) 01/15/23 15:30 (units unknown) (unknown) (unknown) (no date) (unknown) (unknown) 10 unit SUBCUT BEDTIME (units unknown) (unknown) (unknown) (no date) (unknown) (unknown) [id number] /ul (unknown) (unknown) (no date) (unknown) (unknown) 14.6 g/dl (unknown) (unknown) (no date) (unknown) (unknown) 1400 /ul (unknown) (unknown) (no date) (unknown) (unknown) 15.3 % (unknown) (unknown) (no date) (unknown) (unknown) 15.9 x10 3/ul (unknown) (unknown) (no date) (unknown) (unknown) 1500 /ul (unknown) (unknown) (no date) (unknown) (unknown) 162 x10 3/ul (unknown) (unknown) (no date) (unknown) (unknown) 20 mg PO QPM (units unknown) (unknown) (unknown) (no date) (unknown) (unknown) 29.3 pg (unknown) (unknown) (no date) (unknown) (unknown) 33.8 % (unknown) (unknown) (no date) (unknown) (unknown) 40 mg PO BEDTIME (units unknown) (unknown) (unknown) (no date) (unknown) (unknown) 43.2 % (unknown) (unknown) (no date) (unknown) (unknown) 5 mg PO DAILY 90 Days Qty: 90 0RF (units unknown) (unknown) (unknown) (no date) (unknown) (unknown) 5.00 x10 6/ul (unknown) (unknown) (no date) (unknown) (unknown) 50 mg PO BID 90 Days Qty: 180 0RF (units unknown) (unknown) (unknown) (no date) (unknown) (unknown) 500 mg PO BID (units unknown) (unknown) (unknown) (no date) (unknown) (unknown) 81 mg PO DAILY (units unknown) (unknown) (unknown) (no date) (unknown) (unknown) 81.5 % (unknown) (unknown) (no date) (unknown) (unknown) 86.5 fl (unknown) (unknown) (no date) (unknown) (unknown) 9.0 % (unknown) (unknown) (no date) (unknown) (unknown) 9.2 % (unknown) (unknown) (no date) (unknown) (unknown) ABDOMEN: Soft, nontender. Nondistended. Normoactive bowel sounds all 4 (units unknown) (unknown) (unknown) (no date) (unknown) (unknown) AFib with RVR rate of 169 QRS 82 QTC 449. No clear acute ST elevation. Patient (units unknown) (unknown) (unknown) (no date) (unknown) (unknown) Afib (units unknown) (unknown) (unknown) (no date) (unknown) (unknown) Age/Sex: 67 / M (units unknown) (unknown) (unknown) (no date) (unknown) (unknown) Allergies (units unknown) (unknown) (unknown) (no date) (unknown) (unknown) Allergy/AdvReac Type Severity Reaction Status Date / Time (units unknown) (unknown) (unknown) (no date) (unknown) (unknown) Attestation: I personally reviewed and interpreted this ECG as follows: (units unknown) (unknown) (unknown) (no date) (unknown) (unknown) BNP [NT-proBNP (BNP-Adult 18+)] Stat (units unknown) (unknown) (unknown) (no date) (unknown) (unknown) Blood Culture Stat (units unknown) (unknown) (unknown) (no date) (unknown) (unknown) CARDIOVASCULAR: Irregularly irregular and tachycardic without murmurs, rubs or (units unknown) (unknown) (unknown) (no date) (unknown) (unknown) COVID19 -Nasal RAPID Stat (units unknown) (unknown) (unknown) (no date) (unknown) (unknown) Emma Angel MD [Primary Care Provider] (units unknown) (unknown) (unknown) (no date) (unknown) (unknown) Complete Blood Count AUTO DIFF Stat (units unknown) (unknown) (unknown) (no date) (unknown) (unknown) Comprehensive Metabolic Panel Stat (units unknown) (unknown) (unknown) (no date) (unknown) (unknown) Course (units unknown) (unknown) (unknown) (no date) (unknown) (unknown) : 1955 Acct:[id number] (units unknown) (unknown) (unknown) (no date) (unknown) (unknown) Date of Service: 01/15/23 (units unknown) (unknown) (unknown) (no date) (unknown) (unknown) Departure (units unknown) (unknown) (unknown) (no date) (unknown) (unknown) Diabetes mellitus (units unknown) (unknown) (unknown) (no date) (unknown) (unknown) Diabetes (units unknown) (unknown) (unknown) (no date) (unknown) (unknown) Diltiazem HCl (Diltiazem 5 Mg/Ml Sdv) 10 mg IV NOW ONE (units unknown) (unknown) (unknown) (no date) (unknown) (unknown) Discharge Plan (units unknown) (unknown) (unknown) (no date) (unknown) (unknown) Discontinued Medications (units unknown) (unknown) (unknown) (no date) (unknown) (unknown) ECG Data (units unknown) (unknown) (unknown) (no date) (unknown) (unknown) ED Orders (units unknown) (unknown) (unknown) (no date) (unknown) (unknown) EKG-12 Lead Stat (units unknown) (unknown) (unknown) (no date) (unknown) (unknown) ER Physician: Gayla Nunez D.O. (units unknown) (unknown) (unknown) (no date) (unknown) (unknown) EXTREMITIES: Normal range of motion, no clubbing or edema. Neurovascularly (units unknown) (unknown) (unknown) (no date) (unknown) (unknown) Emergency Report (units unknown) (unknown) (unknown) (no date) (unknown) (unknown) Exam Narrative: (units unknown) (unknown) (unknown) (no date) (unknown) (unknown) Exam (units unknown) (unknown) (unknown) (no date) (unknown) (unknown) Family History (units unknown) (unknown) (unknown) (no date) (unknown) (unknown) Father Smoker (units unknown) (unknown) (unknown) (no date) (unknown) (unknown) GENERAL: Alert and oriented x three, diaphoretic in moderate distress patient (units unknown) (unknown) (unknown) (no date) (unknown) (unknown) : No CVA tenderness (units unknown) (unknown) (unknown) (no date) (unknown) (unknown) General (units unknown) (unknown) (unknown) (no date) (unknown) (unknown) HEENT: Head normocephalic, atraumatic, EOMI, pupils reactive, face symmetric, (units unknown) (unknown) (unknown) (no date) (unknown) (unknown) HPI - Arrhythmia/Palpitat ions (units unknown) (unknown) (unknown) (no date) (unknown) (unknown) HPI narrative: (units unknown) (unknown) (unknown) (no date) (unknown) (unknown) Heart attack (units unknown) (unknown) (unknown) (no date) (unknown) (unknown) History of Present Illness (units unknown) (unknown) (unknown) (no date) (unknown) (unknown) History of hernia repair (units unknown) (unknown) (unknown) (no date) (unknown) (unknown) History of neck surgery (units unknown) (unknown) (unknown) (no date) (unknown) (unknown) Home Medications (units unknown) (unknown) (unknown) (no date) (unknown) (unknown) Hyperlipidemia (units unknown) (unknown) (unknown) (no date) (unknown) (unknown) Hypertension (units unknown) (unknown) (unknown) (no date) (unknown) (unknown) Interpretation: (units unknown) (unknown) (unknown) (no date) (unknown) (unknown) [address] [address] (units unknown) (unknown) (unknown) (no date) (unknown) (unknown) Lactate (Lactic Acid) Stat (units unknown) (unknown) (unknown) (no date) (unknown) (unknown) Limitations: no limitations (units unknown) (unknown) (unknown) (no date) (unknown) (unknown) Lipase Stat (units unknown) (unknown) (unknown) (no date) (unknown) (unknown) MDM - Arrhythmia/Palpitat ions (units unknown) (unknown) (unknown) (no date) (unknown) (unknown) MDM Narrative (units unknown) (unknown) (unknown) (no date) (unknown) (unknown) Magnesium Stat (units unknown) (unknown) (unknown) (no date) (unknown) (unknown) Medical History (units unknown) (unknown) (unknown) (no date) (unknown) (unknown) Medical decision making narrative: (units unknown) (unknown) (unknown) (no date) (unknown) (unknown) Medication Instructions Recorded Confirmed (units unknown) (unknown) (unknown) (no date) (unknown) (unknown) Medication Instructions Recorded (units unknown) (unknown) (unknown) (no date) (unknown) (unknown) Mode of arrival: Family Vehicle (units unknown) (unknown) (unknown) (no date) (unknown) (unknown) Mother No significant medical problems (units unknown) (unknown) (unknown) (no date) (unknown) (unknown) NECK: Supple, full range of motion (units unknown) (unknown) (unknown) (no date) (unknown) (unknown) NEUROLOGICAL: Cranial nerves II through XII grossly intact. Moving all (units unknown) (unknown) (unknown) (no date) (unknown) (unknown) Narrative (units unknown) (unknown) (unknown) (no date) (unknown) (unknown) Neuropathy of both feet (units unknown) (unknown) (unknown) (no date) (unknown) (unknown) No Action (units unknown) (unknown) (unknown) (no date) (unknown) (unknown) Ordered: (units unknown) (unknown) (unknown) (no date) (unknown) (unknown) Orders (units unknown) (unknown) (unknown) (no date) (unknown) (unknown) PTT Partial Thromboplastin Chuckie Stat (units unknown) (unknown) (unknown) (no date) (unknown) (unknown) Patient History (units unknown) (unknown) (unknown) (no date) (unknown) (unknown) Patient denies active tobacco, alcohol or illicit drug use. He is accompanied (units unknown) (unknown) (unknown) (no date) (unknown) (unknown) Patient: ChengArvind Oh MR#: [id number] (units unknown) (unknown) (unknown) (no date) (unknown) (unknown) Prescriptions: (units unknown) (unknown) (unknown) (no date) (unknown) (unknown) Previous Rx's (units unknown) (unknown) (unknown) (no date) (unknown) (unknown) Prior ECG tracings: available for review (units unknown) (unknown) (unknown) (no date) (unknown) (unknown) Procalcitonin Stat (units unknown) (unknown) (unknown) (no date) (unknown) (unknown) Prothrombin Time INR Stat (units unknown) (unknown) (unknown) (no date) (unknown) (unknown) RESPIRATORY: Breath sounds equal bilaterally, no wheezes rales or rhonchi. No (units unknown) (unknown) (unknown) (no date) (unknown) (unknown) ROS Unobtainable: All systems reviewed + are unremarkable except as noted in HPI (units unknown) (unknown) (unknown) (no date) (unknown) (unknown) Referrals: (units unknown) (unknown) (unknown) (no date) (unknown) (unknown) Related Data (units unknown) (unknown) (unknown) (no date) (unknown) (unknown) Review of Systems (units unknown) (unknown) (unknown) (no date) (unknown) (unknown) SKIN: Warm, diaphoretic, no petechiae, no rashes or lesions. (units unknown) (unknown) (unknown) (no date) (unknown) (unknown) Signed By: (units unknown) (unknown) (unknown) (no date) (unknown) (unknown) Smoking Status: Never smoker (units unknown) (unknown) (unknown) (no date) (unknown) (unknown) Social History (units unknown) (unknown) (unknown) (no date) (unknown) (unknown) Sodium Chloride (Normal Saline 0.9%) 1,000 mls @ 1,000 mls/hr IV BOLUS ONE (units unknown) (unknown) (unknown) (no date) (unknown) (unknown) Source: patient, family, RN notes reviewed and old records reviewed (units unknown) (unknown) (unknown) (no date) (unknown) (unknown) Stated Complaint: vomiting/shaking/fe trell (units unknown) (unknown) (unknown) (no date) (unknown) (unknown) Stop: 01/15/23 15:28 (units unknown) (unknown) (unknown) (no date) (unknown) (unknown) Stop: 01/15/23 16:29 (units unknown) (unknown) (unknown) (no date) (unknown) (unknown) Substance Use Type: does not use (units unknown) (unknown) (unknown) (no date) (unknown) (unknown) Surgical History (units unknown) (unknown) (unknown) (no date) (unknown) (unknown) This is a 67-year-old male who presents with AFib RVR but is also febrile and (units unknown) (unknown) (unknown) (no date) (unknown) (unknown) This is a 67-year-old male with known history of atrial fibrillation who is (units unknown) (unknown) (unknown) (no date) (unknown) (unknown) Time Seen by Provider: 01/15/23 15:29 (units unknown) (unknown) (unknown) (no date) (unknown) (unknown) Troponin + CK Cardiac Panel Stat (units unknown) (unknown) (unknown) (no date) (unknown) (unknown) U-100 Insulin) (units unknown) (unknown) (unknown) (no date) (unknown) (unknown) UA Complete [Urinalysis and Microscopic] Stat (units unknown) (unknown) (unknown) (no date) (unknown) (unknown) XR chest 1V Stat (units unknown) (unknown) (unknown) (no date) (unknown) (unknown) Xarelto 20 mg Tablet (units unknown) (unknown) (unknown) (no date) (unknown) (unknown) accessory muscle use. Mild tachypnea. (units unknown) (unknown) (unknown) (no date) (unknown) (unknown) additional 10 mg dose and plan for drip. Patient was also given fluids size (units unknown) (unknown) (unknown) (no date) (unknown) (unknown) alcohol intake frequency: other (units unknown) (unknown) (unknown) (no date) (unknown) (unknown) alcohol intake: never (units unknown) (unknown) (unknown) (no date) (unknown) (unknown) and below (units unknown) (unknown) (unknown) (no date) (unknown) (unknown) any new swelling in his extremities. His states he has not been telling (units unknown) (unknown) (unknown) (no date) (unknown) (unknown) aspirin 81 mg tablet,delayed 81 mg PO DAILY 05/11/20 12/19/22 (units unknown) (unknown) (unknown) (no date) (unknown) (unknown) aspirin [Adult Low Dose Aspirin] 81 mg Tablet,Delayed Release (Dr/Ec) (units unknown) (unknown) (unknown) (no date) (unknown) (unknown) atorvastatin 40 mg Tablet (units unknown) (unknown) (unknown) (no date) (unknown) (unknown) atorvastatin 40 mg tablet 40 mg PO BEDTIME 05/11/20 12/19/22 (units unknown) (unknown) (unknown) (no date) (unknown) (unknown) by his who brought him today who states he refused transport via EMS and (units unknown) (unknown) (unknown) (no date) (unknown) (unknown) catheterization or stress test no ablation. He denies any prior surgeries. He (units unknown) (unknown) (unknown) (no date) (unknown) (unknown) denies chest pain or shortness of breath he does state he is had some fever, he (units unknown) (unknown) (unknown) (no date) (unknown) (unknown) denies diarrhea constipation he denies dysuria urgency or frequency. He denies (units unknown) (unknown) (unknown) (no date) (unknown) (unknown) department. Patient states his primary care is through the [employer] base. He does (units unknown) (unknown) (unknown) (no date) (unknown) (unknown) does answer questions appropriately but appears to feel unwell (units unknown) (unknown) (unknown) (no date) (unknown) (unknown) does have some depression in 1 and aVL. Patient has prior from 12/18/2022 with (units unknown) (unknown) (unknown) (no date) (unknown) (unknown) dyslipidemia. According to patient's she is unsure if he is taking his (units unknown) (unknown) (unknown) (no date) (unknown) (unknown) extremities (units unknown) (unknown) (unknown) (no date) (unknown) (unknown) fevers generally feeling unwell he states his heart rate has been fast. He (units unknown) (unknown) (unknown) (no date) (unknown) (unknown) gallops. No JVD. Trace edema bilaterally. (units unknown) (unknown) (unknown) (no date) (unknown) (unknown) had several days of fever. Suspect his AFib RVR is a response to fever and (units unknown) (unknown) (unknown) (no date) (unknown) (unknown) her about any symptoms but she has noted he is had fevers for the last 5 days (units unknown) (unknown) (unknown) (no date) (unknown) (unknown) household members: spouse (units unknown) (unknown) (unknown) (no date) (unknown) (unknown) improvement in rate down to 120s with a systolic pressure of 170s, was given (units unknown) (unknown) (unknown) (no date) (unknown) (unknown) infection. Patient denies other symptoms currently he is diaphoretic but has a (units unknown) (unknown) (unknown) (no date) (unknown) (unknown) insulin glargine 100 unit/mL 10 unit SUBCUT BEDTIME 05/11/20 12/19/22 (units unknown) (unknown) (unknown) (no date) (unknown) (unknown) insulin glargine [Lantus U-100 Insulin] 100 unit/mL Solution (units unknown) (unknown) (unknown) (no date) (unknown) (unknown) intact (units unknown) (unknown) (unknown) (no date) (unknown) (unknown) lisinopril 5 mg tablet 5 mg PO DAILY 90 days #90 tabs 12/21/22 (units unknown) (unknown) (unknown) (no date) (unknown) (unknown) lisinopril 5 mg tablet (units unknown) (unknown) (unknown) (no date) (unknown) (unknown) medications regularly. He was admitted for AFib RVR in November and was not (units unknown) (unknown) (unknown) (no date) (unknown) (unknown) metformin 500 mg Tablet (units unknown) (unknown) (unknown) (no date) (unknown) (unknown) metformin 500 mg tablet 500 mg PO BID 05/11/20 12/19/22 (units unknown) (unknown) (unknown) (no date) (unknown) (unknown) metoprolol succinate 50 mg 50 mg PO BID 90 days #180 tabs 12/21/22 (units unknown) (unknown) (unknown) (no date) (unknown) (unknown) metoprolol succinate 50 mg tablet extended release 24 hr (units unknown) (unknown) (unknown) (no date) (unknown) (unknown) moist mucous membranes (units unknown) (unknown) (unknown) (no date) (unknown) (unknown) not follow with a passenger service representative regularly. (units unknown) (unknown) (unknown) (no date) (unknown) (unknown) occupational status: employed (units unknown) (unknown) (unknown) (no date) (unknown) (unknown) on his way here to the hospital. He denies abdominal back or flank pain. He (units unknown) (unknown) (unknown) (no date) (unknown) (unknown) piperacillin [From Zosyn] Allergy Severe Uticaria Verified 05/11/20 22:50 (units unknown) (unknown) (unknown) (no date) (unknown) (unknown) quadrants. No guarding or rebound, rigidity, no mass (units unknown) (unknown) (unknown) (no date) (unknown) (unknown) release (Adult Low Dose Aspirin) (units unknown) (unknown) (unknown) (no date) (unknown) (unknown) rivaroxaban 20 mg tablet (Xarelto) 20 mg PO QPM 05/11/20 12/19/22 (units unknown) (unknown) (unknown) (no date) (unknown) (unknown) she is been arguing has him for several days to get him to come to the emergency (units unknown) (unknown) (unknown) (no date) (unknown) (unknown) similar appearing ST segments that time his rate was 100 but was in AFib. (units unknown) (unknown) (unknown) (no date) (unknown) (unknown) since Sunday. Patient denies any prior cardiac interventions no heart (units unknown) (unknown) (unknown) (no date) (unknown) (unknown) states he is allergic to a penicillin type medication appears to be Zosyn. (units unknown) (unknown) (unknown) (no date) (unknown) (unknown) states he is felt unwell in general. No syncope. He is had nausea and vomiting (units unknown) (unknown) (unknown) (no date) (unknown) (unknown) subcutaneous solution (Lantus (units unknown) (unknown) (unknown) (no date) (unknown) (unknown) supposed to be anticoagulated on Xarelto, diabetes hypertension and (units unknown) (unknown) (unknown) (no date) (unknown) (unknown) suspect sepsis has part of his current problems. (units unknown) (unknown) (unknown) (no date) (unknown) (unknown) tablet,extended release 24 hr (units unknown) (unknown) (unknown) (no date) (unknown) (unknown) taking medications regularly at that time. Patient presents with 5 days of (units unknown) (unknown) (unknown) (no date) (unknown) (unknown) tazobactam [From Zosyn] Allergy Severe Uticaria Verified 05/11/20 22:50 (units unknown) (unknown) (unknown) (no date) (unknown) (unknown) temperature of 101? F as well. Was given Tylenol, IV diltiazem with some (units unknown) (unknown) Result panel 410 (unknown) (no date) (unknown) (unknown) 1.7 (units unknown) (unknown) (unknown) (no date) (unknown) (unknown) 19.2 seconds (unknown) (unknown) (no date) (unknown) (unknown) 33 seconds (unknown) (unknown) (no date) (unknown) (unknown) 33 seconds (unknown) Result panel 411 (unknown) (no date) (unknown) (unknown) > 60 ml/min (unknown) (unknown) (no date) (unknown) (unknown) > 60 ml/min (unknown) (unknown) (no date) (unknown) (unknown) 1.1 (units unknown) (unknown) (unknown) (no date) (unknown) (unknown) 1.12 mg/dl (unknown) (unknown) (no date) (unknown) (unknown) 1.2 mg/dl (unknown) (unknown) (no date) (unknown) (unknown) 1.2 mg/dl (unknown) (unknown) (no date) (unknown) (unknown) 128 mmol/l (unknown) (unknown) (no date) (unknown) (unknown) 133 u/l (unknown) (unknown) (no date) (unknown) (unknown) 19 mmol/l (unknown) (unknown) (no date) (unknown) (unknown) 21.4 (units unknown) (unknown) (unknown) (no date) (unknown) (unknown) 24 mg/dl (unknown) (unknown) (no date) (unknown) (unknown) 252 mg/dl (unknown) (unknown) (no date) (unknown) (unknown) 252 mg/dl (unknown) (unknown) (no date) (unknown) (unknown) 29 iu/l (unknown) (unknown) (no date) (unknown) (unknown) 3.6 g/dl (unknown) (unknown) (no date) (unknown) (unknown) 32 iu/l (unknown) (unknown) (no date) (unknown) (unknown) 367 u/l (unknown) (unknown) (no date) (unknown) (unknown) 4.1 g/dl (unknown) (unknown) (no date) (unknown) (unknown) 4.5 mmol/l (unknown) (unknown) (no date) (unknown) (unknown) 7.7 g/dl (unknown) (unknown) (no date) (unknown) (unknown) 8.9 mg/dl (unknown) (unknown) (no date) (unknown) (unknown) 96 mmol/l (unknown) (unknown) (no date) (unknown) (unknown) 97 u/l (unknown) Result panel 412 (unknown) (no date) (unknown) (unknown) > 60 ml/min (unknown) (unknown) (no date) (unknown) (unknown) > 60 ml/min (unknown) (unknown) (no date) (unknown) (unknown) 0.016 ng/ml (unknown) (unknown) (no date) (unknown) (unknown) 0.016 ng/ml (unknown) (unknown) (no date) (unknown) (unknown) 1.1 (units unknown) (unknown) (unknown) (no date) (unknown) (unknown) 1.12 mg/dl (unknown) (unknown) (no date) (unknown) (unknown) 1.2 mg/dl (unknown) (unknown) (no date) (unknown) (unknown) 1.2 mg/dl (unknown) (unknown) (no date) (unknown) (unknown) 128 mmol/l (unknown) (unknown) (no date) (unknown) (unknown) 133 u/l (unknown) (unknown) (no date) (unknown) (unknown) 19 mmol/l (unknown) (unknown) (no date) (unknown) (unknown) 21.4 (units unknown) (unknown) (unknown) (no date) (unknown) (unknown) 24 mg/dl (unknown) (unknown) (no date) (unknown) (unknown) 252 mg/dl (unknown) (unknown) (no date) (unknown) (unknown) 252 mg/dl (unknown) (unknown) (no date) (unknown) (unknown) 29 iu/l (unknown) (unknown) (no date) (unknown) (unknown) 3.6 g/dl (unknown) (unknown) (no date) (unknown) (unknown) 32 iu/l (unknown) (unknown) (no date) (unknown) (unknown) 367 u/l (unknown) (unknown) (no date) (unknown) (unknown) 4.1 g/dl (unknown) (unknown) (no date) (unknown) (unknown) 4.5 mmol/l (unknown) (unknown) (no date) (unknown) (unknown) 7.7 g/dl (unknown) (unknown) (no date) (unknown) (unknown) 8.9 mg/dl (unknown) (unknown) (no date) (unknown) (unknown) 96 mmol/l (unknown) (unknown) (no date) (unknown) (unknown) 97 u/l (unknown) Result panel 413 (unknown) (no date) (unknown) (unknown) > 60 ml/min (unknown) (unknown) (no date) (unknown) (unknown) > 60 ml/min (unknown) (unknown) (no date) (unknown) (unknown) 0.016 ng/ml (unknown) (unknown) (no date) (unknown) (unknown) 0.016 ng/ml (unknown) (unknown) (no date) (unknown) (unknown) 0.8 % (unknown) (unknown) (no date) (unknown) (unknown) 1.09 ng/ml (unknown) (unknown) (no date) (unknown) (unknown) 1.1 (units unknown) (unknown) (unknown) (no date) (unknown) (unknown) 1.12 mg/dl (unknown) (unknown) (no date) (unknown) (unknown) 1.2 mg/dl (unknown) (unknown) (no date) (unknown) (unknown) 1.2 mg/dl (unknown) (unknown) (no date) (unknown) (unknown) 128 mmol/l (unknown) (unknown) (no date) (unknown) (unknown) 133 u/l (unknown) (unknown) (no date) (unknown) (unknown) 19 mmol/l (unknown) (unknown) (no date) (unknown) (unknown) 21.4 (units unknown) (unknown) (unknown) (no date) (unknown) (unknown) 24 mg/dl (unknown) (unknown) (no date) (unknown) (unknown) 252 mg/dl (unknown) (unknown) (no date) (unknown) (unknown) 252 mg/dl (unknown) (unknown) (no date) (unknown) (unknown) 29 iu/l (unknown) (unknown) (no date) (unknown) (unknown) 3.6 g/dl (unknown) (unknown) (no date) (unknown) (unknown) 32 iu/l (unknown) (unknown) (no date) (unknown) (unknown) 367 u/l (unknown) (unknown) (no date) (unknown) (unknown) 4.1 g/dl (unknown) (unknown) (no date) (unknown) (unknown) 4.5 mmol/l (unknown) (unknown) (no date) (unknown) (unknown) 7.7 g/dl (unknown) (unknown) (no date) (unknown) (unknown) 8.9 mg/dl (unknown) (unknown) (no date) (unknown) (unknown) 96 mmol/l (unknown) (unknown) (no date) (unknown) (unknown) 97 u/l (unknown) Result panel 414 (unknown) (no date) (unknown) (unknown) (no value) (units unknown) (unknown) (unknown) (no date) (unknown) (unknown) [id number] (units unknown) (unknown) (unknown) (no date) (unknown) (unknown) 01/15/23 01/15/23 01/15/23 Range/Units (units unknown) (unknown) (unknown) (no date) (unknown) (unknown) 01/15/23 15:25 (units unknown) (unknown) (unknown) (no date) (unknown) (unknown) 01/15/23 15:26 (units unknown) (unknown) (unknown) (no date) (unknown) (unknown) 01/15/23 15:30 (units unknown) (unknown) (unknown) (no date) (unknown) (unknown) 01/15/23 15:49 (units unknown) (unknown) (unknown) (no date) (unknown) (unknown) 01/15/23 (units unknown) (unknown) (unknown) (no date) (unknown) (unknown) 12 unit SUBCUT BEDTIME (units unknown) (unknown) (unknown) (no date) (unknown) (unknown) [address] [place] [address] (units unknown) (unknown) (unknown) (no date) (unknown) (unknown) 15:25 15:25 15:25 (units unknown) (unknown) (unknown) (no date) (unknown) (unknown) 15:26 01/15/23 (units unknown) (unknown) (unknown) (no date) (unknown) (unknown) 15:27 01/15/23 (units unknown) (unknown) (unknown) (no date) (unknown) (unknown) 15:27 (units unknown) (unknown) (unknown) (no date) (unknown) (unknown) 15:29 01/15/23 (units unknown) (unknown) (unknown) (no date) (unknown) (unknown) 15:30 01/15/23 (units unknown) (unknown) (unknown) (no date) (unknown) (unknown) 15:30 (units unknown) (unknown) (unknown) (no date) (unknown) (unknown) 15:35 01/15/23 (units unknown) (unknown) (unknown) (no date) (unknown) (unknown) 15:40 (units unknown) (unknown) (unknown) (no date) (unknown) (unknown) 15:45 01/15/23 (units unknown) (unknown) (unknown) (no date) (unknown) (unknown) 15:48 01/15/23 (units unknown) (unknown) (unknown) (no date) (unknown) (unknown) 15:48 (units unknown) (unknown) (unknown) (no date) (unknown) (unknown) 15:50 01/15/23 (units unknown) (unknown) (unknown) (no date) (unknown) (unknown) 15:55 01/15/23 (units unknown) (unknown) (unknown) (no date) (unknown) (unknown) 15:55 (units unknown) (unknown) (unknown) (no date) (unknown) (unknown) 16:00 01/15/23 (units unknown) (unknown) (unknown) (no date) (unknown) (unknown) 16:00 (units unknown) (unknown) (unknown) (no date) (unknown) (unknown) 20 mg PO QPM (units unknown) (unknown) (unknown) (no date) (unknown) (unknown) 5 mg PO DAILY 90 Days Qty: 90 0RF (units unknown) (unknown) (unknown) (no date) (unknown) (unknown) 50 mg PO BID 90 Days Qty: 180 0RF (units unknown) (unknown) (unknown) (no date) (unknown) (unknown) 500 mg PO BID (units unknown) (unknown) (unknown) (no date) (unknown) (unknown) ? (units unknown) (unknown) (unknown) (no date) (unknown) (unknown) ABDOMEN: Soft, nontender. Nondistended. Normoactive bowel sounds all 4 (units unknown) (unknown) (unknown) (no date) (unknown) (unknown) AFib with RVR rate of 169 QRS 82 QTC 449. No clear acute ST elevation. Patient (units unknown) (unknown) (unknown) (no date) (unknown) (unknown) ALT 29 (<50) IU/L (units unknown) (unknown) (unknown) (no date) (unknown) (unknown) APTT 33 (26-36) SECONDS (units unknown) (unknown) (unknown) (no date) (unknown) (unknown) AST 32 (17-59) IU/L (units unknown) (unknown) (unknown) (no date) (unknown) (unknown) Accession Number: [id number] ?? (units unknown) (unknown) (unknown) (no date) (unknown) (unknown) Acct:[id number] (units unknown) (unknown) (unknown) (no date) (unknown) (unknown) Acetaminophen (Acetaminophen 325 Mg Tablet) 975 mg PO NOW ONE (units unknown) (unknown) (unknown) (no date) (unknown) (unknown) Afib (units unknown) (unknown) (unknown) (no date) (unknown) (unknown) Age/Sex: 67 / M (units unknown) (unknown) (unknown) (no date) (unknown) (unknown) Albumin 4.1 (3.5-5.0) g/dL (units unknown) (unknown) (unknown) (no date) (unknown) (unknown) Albumin/Globulin Ratio 1.1 (1.0-2.8) (units unknown) (unknown) (unknown) (no date) (unknown) (unknown) Alkaline Phosphatase 97 (38-126) U/L (units unknown) (unknown) (unknown) (no date) (unknown) (unknown) Allergies (units unknown) (unknown) (unknown) (no date) (unknown) (unknown) Allergy/AdvReac Type Severity Reaction Status Date / Time (units unknown) (unknown) (unknown) (no date) (unknown) (unknown) [place] [address] (units unknown) (unknown) (unknown) (no date) (unknown) (unknown) Approved by: Reza Sanchez M.D. on 01/15/2023 at 16:03?? (units unknown) (unknown) (unknown) (no date) (unknown) (unknown) Attestation: I personally reviewed and interpreted this ECG as follows: (units unknown) (unknown) (unknown) (no date) (unknown) (unknown) BNP [NT-proBNP (BNP-Adult 18+)] Stat (units unknown) (unknown) (unknown) (no date) (unknown) (unknown) BUN 24 H (9-20) mg/dL (units unknown) (unknown) (unknown) (no date) (unknown) (unknown) BUN/Creatinine Ratio 21.4 (6-22) (units unknown) (unknown) (unknown) (no date) (unknown) (unknown) Baso # (Auto) 0 (0-100) /uL (units unknown) (unknown) (unknown) (no date) (unknown) (unknown) Baso % (Auto) 0.3 (0-2) % (units unknown) (unknown) (unknown) (no date) (unknown) (unknown) Blood Culture Stat (units unknown) (unknown) (unknown) (no date) (unknown) (unknown) Blood Pressure 122/57 L (units unknown) (unknown) (unknown) (no date) (unknown) (unknown) Blood Pressure 125/63 (units unknown) (unknown) (unknown) (no date) (unknown) (unknown) Blood Pressure 156/60 H 122/58 L (units unknown) (unknown) (unknown) (no date) (unknown) (unknown) Blood Pressure 172/92 H (units unknown) (unknown) (unknown) (no date) (unknown) (unknown) Blood Pressure 183/84 H 140/69 (units unknown) (unknown) (unknown) (no date) (unknown) (unknown) Blood Pressure 193/91 H (units unknown) (unknown) (unknown) (no date) (unknown) (unknown) Bones and chest wall:? No suspicious bony lesions.? Overlying soft tissues (units unknown) (unknown) (unknown) (no date) (unknown) (unknown) CARDIOVASCULAR: Irregularly irregular and tachycardic without murmurs, rubs or (units unknown) (unknown) (unknown) (no date) (unknown) (unknown) CK-MB (CK-2) 1.09 (<2.37) ng/mL (units unknown) (unknown) (unknown) (no date) (unknown) (unknown) CK-MB (CK-2) Rel Index 0.8 L (1.5-5.0) % (units unknown) (unknown) (unknown) (no date) (unknown) (unknown) COMPARISON:? [facility], CR, XR CHEST 1V, 12/19/2022, 16:16. (units unknown) (unknown) (unknown) (no date) (unknown) (unknown) COVID19 -Nasal RAPID Stat (units unknown) (unknown) (unknown) (no date) (unknown) (unknown) Calcium 8.9 (8.4-10.2) mg/dL (units unknown) (unknown) (unknown) (no date) (unknown) (unknown) Carbon Dioxide 19 L (22-32) mmol/L (units unknown) (unknown) (unknown) (no date) (unknown) (unknown) Chest x-ray: (units unknown) (unknown) (unknown) (no date) (unknown) (unknown) Chief Complaint: Arrhythmia/Palpitat ions (units unknown) (unknown) (unknown) (no date) (unknown) (unknown) Chloride 96 L (98-107) mmol/L (units unknown) (unknown) (unknown) (no date) (unknown) (unknown) Emma Angel MD [Primary Care Provider] (units unknown) (unknown) (unknown) (no date) (unknown) (unknown) Complete Blood Count AUTO DIFF Stat (units unknown) (unknown) (unknown) (no date) (unknown) (unknown) Comprehensive Metabolic Panel Stat (units unknown) (unknown) (unknown) (no date) (unknown) (unknown) Course (units unknown) (unknown) (unknown) (no date) (unknown) (unknown) Covid-19 + FLU A/B + RSV - PCR Stat (units unknown) (unknown) (unknown) (no date) (unknown) (unknown) Creatinine 1.12 (0.66-1.25) mg/dL (units unknown) (unknown) (unknown) (no date) (unknown) (unknown) DILTIAZEM (Diltiazem 125 Mg/125 Ml-D5w) 125 mg in 125 mls @ 5 mls/hr IV TITRATE (units unknown) (unknown) (unknown) (no date) (unknown) (unknown) : 1955 Acct:[id number] (units unknown) (unknown) (unknown) (no date) (unknown) (unknown) : 1955 (units unknown) (unknown) (unknown) (no date) (unknown) (unknown) Date of Service: 01/15/23 (units unknown) (unknown) (unknown) (no date) (unknown) (unknown) Departure (units unknown) (unknown) (unknown) (no date) (unknown) (unknown) Diabetes mellitus (units unknown) (unknown) (unknown) (no date) (unknown) (unknown) Diabetes (units unknown) (unknown) (unknown) (no date) (unknown) (unknown) Dictated by: Reza Sanchez M.D. on 01/15/2023 at 16:03 ? ? (units unknown) (unknown) (unknown) (no date) (unknown) (unknown) Diltiazem HCl (Diltiazem 5 Mg/Ml Sdv) 10 mg IV NOW ONE (units unknown) (unknown) (unknown) (no date) (unknown) (unknown) Discharge Plan (units unknown) (unknown) (unknown) (no date) (unknown) (unknown) Discontinued Medications (units unknown) (unknown) (unknown) (no date) (unknown) (unknown) Documented By: RL (units unknown) (unknown) (unknown) (no date) (unknown) (unknown) ECG Data (units unknown) (unknown) (unknown) (no date) (unknown) (unknown) ED Orders (units unknown) (unknown) (unknown) (no date) (unknown) (unknown) EKG-12 Lead Stat (units unknown) (unknown) (unknown) (no date) (unknown) (unknown) ER Physician: Gayla Nunez D.O. (units unknown) (unknown) (unknown) (no date) (unknown) (unknown) EXTREMITIES: Normal range of motion, no clubbing or edema. Neurovascularly (units unknown) (unknown) (unknown) (no date) (unknown) (unknown) Emergency Report (units unknown) (unknown) (unknown) (no date) (unknown) (unknown) Eos # (Auto) 0 (0-450) /uL (units unknown) (unknown) (unknown) (no date) (unknown) (unknown) Eos % (Auto) 0.0 L (2-4) % (units unknown) (unknown) (unknown) (no date) (unknown) (unknown) Estimated GFR > 60 (>60) mL/min (units unknown) (unknown) (unknown) (no date) (unknown) (unknown) Exam Narrative: (units unknown) (unknown) (unknown) (no date) (unknown) (unknown) Exam (units unknown) (unknown) (unknown) (no date) (unknown) (unknown) FINDINGS:? (units unknown) (unknown) (unknown) (no date) (unknown) (unknown) Family History (units unknown) (unknown) (unknown) (no date) (unknown) (unknown) Father Smoker (units unknown) (unknown) (unknown) (no date) (unknown) (unknown) GENERAL: Alert and oriented x three, diaphoretic in moderate distress patient (units unknown) (unknown) (unknown) (no date) (unknown) (unknown) : No CVA tenderness (units unknown) (unknown) (unknown) (no date) (unknown) (unknown) General (units unknown) (unknown) (unknown) (no date) (unknown) (unknown) Globulin 3.6 (1.7-4.1) g/dL (units unknown) (unknown) (unknown) (no date) (unknown) (unknown) Glucose 252 H (80-110) mg/dL (units unknown) (unknown) (unknown) (no date) (unknown) (unknown) HEENT: Head normocephalic, atraumatic, EOMI, pupils reactive, face symmetric, (units unknown) (unknown) (unknown) (no date) (unknown) (unknown) HPI - Arrhythmia/Palpitat ions (units unknown) (unknown) (unknown) (no date) (unknown) (unknown) HPI narrative: (units unknown) (unknown) (unknown) (no date) (unknown) (unknown) Hct 43.2 (41-53) % (units unknown) (unknown) (unknown) (no date) (unknown) (unknown) Heart attack (units unknown) (unknown) (unknown) (no date) (unknown) (unknown) Hgb 14.6 (13.5-17.5) g/dL (units unknown) (unknown) (unknown) (no date) (unknown) (unknown) History of Present Illness (units unknown) (unknown) (unknown) (no date) (unknown) (unknown) History of hernia repair (units unknown) (unknown) (unknown) (no date) (unknown) (unknown) History of neck surgery (units unknown) (unknown) (unknown) (no date) (unknown) (unknown) Home Medications (units unknown) (unknown) (unknown) (no date) (unknown) (unknown) Hyperlipidemia (units unknown) (unknown) (unknown) (no date) (unknown) (unknown) Hypertension (units unknown) (unknown) (unknown) (no date) (unknown) (unknown) IMPRESSION:? Mild pulmonary vascular congestion.? No focal infiltrate, pleural (units unknown) (unknown) (unknown) (no date) (unknown) (unknown) INDICATIONS:? chest pain (units unknown) (unknown) (unknown) (no date) (unknown) (unknown) INR 1.7 H (0.9-1.3) (units unknown) (unknown) (unknown) (no date) (unknown) (unknown) Imaging Data (units unknown) (unknown) (unknown) (no date) (unknown) (unknown) Initial Vital Signs (units unknown) (unknown) (unknown) (no date) (unknown) (unknown) Initial Vital Signs: (units unknown) (unknown) (unknown) (no date) (unknown) (unknown) Interpretation: (units unknown) (unknown) (unknown) (no date) (unknown) (unknown) [address] [address] (units unknown) (unknown) (unknown) (no date) (unknown) (unknown) [facility] (units unknown) (unknown) (unknown) (no date) (unknown) (unknown) Lab Data (units unknown) (unknown) (unknown) (no date) (unknown) (unknown) Lab Results (units unknown) (unknown) (unknown) (no date) (unknown) (unknown) Labs: (units unknown) (unknown) (unknown) (no date) (unknown) (unknown) Lactate (Lactic Acid) Stat (units unknown) (unknown) (unknown) (no date) (unknown) (unknown) Last Admin: 01/15/23 15:40 Dose: 10 mg (units unknown) (unknown) (unknown) (no date) (unknown) (unknown) Last Admin: 01/15/23 15:41 Dose: 10 mg (units unknown) (unknown) (unknown) (no date) (unknown) (unknown) Last Admin: 01/15/23 15:43 Dose: 5 mg/hr, 5 mls/hr (units unknown) (unknown) (unknown) (no date) (unknown) (unknown) Last Admin: 01/15/23 15:45 Dose: 1,000 mls/hr (units unknown) (unknown) (unknown) (no date) (unknown) (unknown) Last Admin: 01/15/23 16:10 Dose: 975 mg (units unknown) (unknown) (unknown) (no date) (unknown) (unknown) Limitations: no limitations (units unknown) (unknown) (unknown) (no date) (unknown) (unknown) Lipase 367 H (23-300) U/L (units unknown) (unknown) (unknown) (no date) (unknown) (unknown) Lipase Stat (units unknown) (unknown) (unknown) (no date) (unknown) (unknown) Loc: ED (units unknown) (unknown) (unknown) (no date) (unknown) (unknown) Lungs and pleura:? Mild pulmonary vascular congestion is seen.? No definite (units unknown) (unknown) (unknown) (no date) (unknown) (unknown) Lymph # (Auto) 1400 (4923-9570) /uL (units unknown) (unknown) (unknown) (no date) (unknown) (unknown) Lymph % (Auto) 9.0 L (25-40) % (units unknown) (unknown) (unknown) (no date) (unknown) (unknown) MCH 29.3 (26-34) PG (units unknown) (unknown) (unknown) (no date) (unknown) (unknown) MCHC 33.8 (30-36) % (units unknown) (unknown) (unknown) (no date) (unknown) (unknown) MCV 86.5 (80-100) fL (units unknown) (unknown) (unknown) (no date) (unknown) (unknown) MDM - Arrhythmia/Palpitat ions (units unknown) (unknown) (unknown) (no date) (unknown) (unknown) MDM Narrative (units unknown) (unknown) (unknown) (no date) (unknown) (unknown) MR#: [id number] (units unknown) (unknown) (unknown) (no date) (unknown) (unknown) Magnesium 1.2 L (1.6-2.3) mg/dL (units unknown) (unknown) (unknown) (no date) (unknown) (unknown) Magnesium Stat (units unknown) (unknown) (unknown) (no date) (unknown) (unknown) Mediastinum:? Mediastinal contours appear normal.? Heart size is enlarged.? (units unknown) (unknown) (unknown) (no date) (unknown) (unknown) Medical History (units unknown) (unknown) (unknown) (no date) (unknown) (unknown) Medical decision making narrative: (units unknown) (unknown) (unknown) (no date) (unknown) (unknown) Medication Instructions Recorded Confirmed (units unknown) (unknown) (unknown) (no date) (unknown) (unknown) Medication Instructions Recorded (units unknown) (unknown) (unknown) (no date) (unknown) (unknown) Mode of arrival: Family Vehicle (units unknown) (unknown) (unknown) (no date) (unknown) (unknown) [place] # (Auto) 1500 H (0-900) /uL (units unknown) (unknown) (unknown) (no date) (unknown) (unknown) [place] % (Auto) 9.2 (3-14) % (units unknown) (unknown) (unknown) (no date) (unknown) (unknown) Mother No significant medical problems (units unknown) (unknown) (unknown) (no date) (unknown) (unknown) NECK: Supple, full range of motion (units unknown) (unknown) (unknown) (no date) (unknown) (unknown) NEUROLOGICAL: Cranial nerves II through XII grossly intact. Moving all (units unknown) (unknown) (unknown) (no date) (unknown) (unknown) Narrative (units unknown) (unknown) (unknown) (no date) (unknown) (unknown) Neuropathy of both feet (units unknown) (unknown) (unknown) (no date) (unknown) (unknown) Neut # (Auto) 77859 H (0266-5986) /uL (units unknown) (unknown) (unknown) (no date) (unknown) (unknown) Neut % (Auto) 81.5 H (50-75) % (units unknown) (unknown) (unknown) (no date) (unknown) (unknown) No Action (units unknown) (unknown) (unknown) (no date) (unknown) (unknown) Ondansetron HCl (Ondansetron 4 Mg/2 Ml Inj) 4 mg IV Q6HR PRN (units unknown) (unknown) (unknown) (no date) (unknown) (unknown) Ordered: (units unknown) (unknown) (unknown) (no date) (unknown) (unknown) Ordering Provider: Gayla Nunez D.O. (units unknown) (unknown) (unknown) (no date) (unknown) (unknown) Orders (units unknown) (unknown) (unknown) (no date) (unknown) (unknown) Oxygen Delivery Method Room Air (units unknown) (unknown) (unknown) (no date) (unknown) (unknown) Oxygen Delivery Method (units unknown) (unknown) (unknown) (no date) (unknown) (unknown) PRN Reason: Nausea And Vomiting (units unknown) (unknown) (unknown) (no date) (unknown) (unknown) PROCEDURE:? XR CHEST 1V (units unknown) (unknown) (unknown) (no date) (unknown) (unknown) PT 19.2 H (10.1-12.7) SECONDS (units unknown) (unknown) (unknown) (no date) (unknown) (unknown) PTT Partial Thromboplastin Chuckie Stat (units unknown) (unknown) (unknown) (no date) (unknown) (unknown) Patient History (units unknown) (unknown) (unknown) (no date) (unknown) (unknown) Patient denies active tobacco, alcohol or illicit drug use. He is accompanied (units unknown) (unknown) (unknown) (no date) (unknown) (unknown) Patient: Arvind Brock MR#: [id number] (units unknown) (unknown) (unknown) (no date) (unknown) (unknown) Patient: Arvind Brock (units unknown) (unknown) (unknown) (no date) (unknown) (unknown) Plt Count 162 (150-400) X103/uL (units unknown) (unknown) (unknown) (no date) (unknown) (unknown) Potassium 4.5 (3.4-5.1) mmol/L (units unknown) (unknown) (unknown) (no date) (unknown) (unknown) Prescriptions: (units unknown) (unknown) (unknown) (no date) (unknown) (unknown) Previous Rx's (units unknown) (unknown) (unknown) (no date) (unknown) (unknown) Prior ECG tracings: available for review (units unknown) (unknown) (unknown) (no date) (unknown) (unknown) Procalcitonin Stat (units unknown) (unknown) (unknown) (no date) (unknown) (unknown) Procedure: XR chest 1V (units unknown) (unknown) (unknown) (no date) (unknown) (unknown) Prothrombin Time INR Stat (units unknown) (unknown) (unknown) (no date) (unknown) (unknown) Pulse Oximetry 93 94 (units unknown) (unknown) (unknown) (no date) (unknown) (unknown) Pulse Oximetry 93 (units unknown) (unknown) (unknown) (no date) (unknown) (unknown) Pulse Oximetry 94 (units unknown) (unknown) (unknown) (no date) (unknown) (unknown) Pulse Oximetry 95 01/15/23 15:26 (units unknown) (unknown) (unknown) (no date) (unknown) (unknown) Pulse Oximetry 95 (units unknown) (unknown) (unknown) (no date) (unknown) (unknown) Pulse Oximetry 99 95 93 (units unknown) (unknown) (unknown) (no date) (unknown) (unknown) Pulse Rate 108 H 105 H (units unknown) (unknown) (unknown) (no date) (unknown) (unknown) Pulse Rate 116 H (units unknown) (unknown) (unknown) (no date) (unknown) (unknown) Pulse Rate 123 H 118 H (units unknown) (unknown) (unknown) (no date) (unknown) (unknown) Pulse Rate 135 H (units unknown) (unknown) (unknown) (no date) (unknown) (unknown) Pulse Rate 138 H 126 H (units unknown) (unknown) (unknown) (no date) (unknown) (unknown) Pulse Rate 172 H 01/15/23 15:26 (units unknown) (unknown) (unknown) (no date) (unknown) (unknown) Pulse Rate 209 H 172 H 172 H (units unknown) (unknown) (unknown) (no date) (unknown) (unknown) RBC 5.00 (4.5-5.9) X106/uL (units unknown) (unknown) (unknown) (no date) (unknown) (unknown) RDW 15.3 H (11.6-14.8) % (units unknown) (unknown) (unknown) (no date) (unknown) (unknown) RESPIRATORY: Breath sounds equal bilaterally, no wheezes rales or rhonchi. No (units unknown) (unknown) (unknown) (no date) (unknown) (unknown) ROS Unobtainable: All systems reviewed + are unremarkable except as noted in HPI (units unknown) (unknown) (unknown) (no date) (unknown) (unknown) Radiologist's Impresson: (units unknown) (unknown) (unknown) (no date) (unknown) (unknown) Referrals: (units unknown) (unknown) (unknown) (no date) (unknown) (unknown) Related Data (units unknown) (unknown) (unknown) (no date) (unknown) (unknown) Respiratory Rate 30 H 51 H 53 H (units unknown) (unknown) (unknown) (no date) (unknown) (unknown) Respiratory Rate 34 H (units unknown) (unknown) (unknown) (no date) (unknown) (unknown) Respiratory Rate 40 H 39 H (units unknown) (unknown) (unknown) (no date) (unknown) (unknown) Respiratory Rate 43 H 44 H (units unknown) (unknown) (unknown) (no date) (unknown) (unknown) Respiratory Rate 47 H (units unknown) (unknown) (unknown) (no date) (unknown) (unknown) Respiratory Rate 51 H 01/15/23 15:26 (units unknown) (unknown) (unknown) (no date) (unknown) (unknown) Respiratory Rate 51 H (units unknown) (unknown) (unknown) (no date) (unknown) (unknown) Review of Systems (units unknown) (unknown) (unknown) (no date) (unknown) (unknown) DEIDRA; Protocol (units unknown) (unknown) (unknown) (no date) (unknown) (unknown) SKIN: Warm, diaphoretic, no petechiae, no rashes or lesions. (units unknown) (unknown) (unknown) (no date) (unknown) (unknown) Signed By: (units unknown) (unknown) (unknown) (no date) (unknown) (unknown) Signed (units unknown) (unknown) (unknown) (no date) (unknown) (unknown) Smoking Status: Never smoker (units unknown) (unknown) (unknown) (no date) (unknown) (unknown) Social History (units unknown) (unknown) (unknown) (no date) (unknown) (unknown) Sodium 128 L (137-145) mmol/L (units unknown) (unknown) (unknown) (no date) (unknown) (unknown) Sodium Chloride (Normal Saline 0.9%) 1,000 mls @ 1,000 mls/hr IV BOLUS ONE (units unknown) (unknown) (unknown) (no date) (unknown) (unknown) Source: patient, family, RN notes reviewed and old records reviewed (units unknown) (unknown) (unknown) (no date) (unknown) (unknown) Stated Complaint: vomiting/shaking/fe trell (units unknown) (unknown) (unknown) (no date) (unknown) (unknown) Stop: 01/15/23 15:28 (units unknown) (unknown) (unknown) (no date) (unknown) (unknown) Stop: 01/15/23 15:38 (units unknown) (unknown) (unknown) (no date) (unknown) (unknown) Stop: 01/15/23 15:59 (units unknown) (unknown) (unknown) (no date) (unknown) (unknown) Stop: 01/15/23 16:29 (units unknown) (unknown) (unknown) (no date) (unknown) (unknown) Substance Use Type: does not use (units unknown) (unknown) (unknown) (no date) (unknown) (unknown) Surgical History (units unknown) (unknown) (unknown) (no date) (unknown) (unknown) Surgical changes and devices:? None.? (units unknown) (unknown) (unknown) (no date) (unknown) (unknown) TECHNIQUE:? One view of the chest was acquired.? (units unknown) (unknown) (unknown) (no date) (unknown) (unknown) Temperature 101 F H (units unknown) (unknown) (unknown) (no date) (unknown) (unknown) Temperature (units unknown) (unknown) (unknown) (no date) (unknown) (unknown) This is a 67-year-old male who presents with AFib RVR but is also febrile and (units unknown) (unknown) (unknown) (no date) (unknown) (unknown) This is a 67-year-old male with known history of atrial fibrillation who is (units unknown) (unknown) (unknown) (no date) (unknown) (unknown) Time Seen by Provider: 01/15/23 15:29 (units unknown) (unknown) (unknown) (no date) (unknown) (unknown) Total Bilirubin 1.2 (0.2-1.3) mg/dL (units unknown) (unknown) (unknown) (no date) (unknown) (unknown) Total Creatine Kinase 133 (55-170) U/L (units unknown) (unknown) (unknown) (no date) (unknown) (unknown) Total Protein 7.7 (6.3-8.2) g/dL (units unknown) (unknown) (unknown) (no date) (unknown) (unknown) Troponin + CK Cardiac Panel Stat (units unknown) (unknown) (unknown) (no date) (unknown) (unknown) Troponin I 0.016 (0.01-0.034) ng/mL (units unknown) (unknown) (unknown) (no date) (unknown) (unknown) U-100 Insulin) (units unknown) (unknown) (unknown) (no date) (unknown) (unknown) UA Complete [Urinalysis and Microscopic] Stat (units unknown) (unknown) (unknown) (no date) (unknown) (unknown) Vital Signs - 8 hr (units unknown) (unknown) (unknown) (no date) (unknown) (unknown) Vital Signs (units unknown) (unknown) (unknown) (no date) (unknown) (unknown) Vital signs: (units unknown) (unknown) (unknown) (no date) (unknown) (unknown) WBC 15.9 H (4.5-11.0) X103/uL (units unknown) (unknown) (unknown) (no date) (unknown) (unknown) XR chest 1V Stat (units unknown) (unknown) (unknown) (no date) (unknown) (unknown) XRay Report (units unknown) (unknown) (unknown) (no date) (unknown) (unknown) Xarelto 20 mg Tablet (units unknown) (unknown) (unknown) (no date) (unknown) (unknown) [Embedded Image Not Available] (units unknown) (unknown) (unknown) (no date) (unknown) (unknown) accessory muscle use. Mild tachypnea. (units unknown) (unknown) (unknown) (no date) (unknown) (unknown) additional 10 mg dose and plan for drip. Patient was also given fluids size (units unknown) (unknown) (unknown) (no date) (unknown) (unknown) alcohol intake frequency: other (units unknown) (unknown) (unknown) (no date) (unknown) (unknown) alcohol intake: never (units unknown) (unknown) (unknown) (no date) (unknown) (unknown) and below (units unknown) (unknown) (unknown) (no date) (unknown) (unknown) any new swelling in his extremities. His states he has not been telling (units unknown) (unknown) (unknown) (no date) (unknown) (unknown) appear (units unknown) (unknown) (unknown) (no date) (unknown) (unknown) by his who brought him today who states he refused transport via EMS and (units unknown) (unknown) (unknown) (no date) (unknown) (unknown) catheterization or stress test no ablation. He denies any prior surgeries. He (units unknown) (unknown) (unknown) (no date) (unknown) (unknown) denies chest pain or shortness of breath he does state he is had some fever, he (units unknown) (unknown) (unknown) (no date) (unknown) (unknown) denies diarrhea constipation he denies dysuria urgency or frequency. He denies (units unknown) (unknown) (unknown) (no date) (unknown) (unknown) department. Patient states his primary care is through [facility]. He does (units unknown) (unknown) (unknown) (no date) (unknown) (unknown) does answer questions appropriately but appears to feel unwell (units unknown) (unknown) (unknown) (no date) (unknown) (unknown) does have some depression in 1 and aVL. Patient has prior from 12/18/2022 with (units unknown) (unknown) (unknown) (no date) (unknown) (unknown) dyslipidemia. According to patient's she is unsure if he is taking his (units unknown) (unknown) (unknown) (no date) (unknown) (unknown) effusion (units unknown) (unknown) (unknown) (no date) (unknown) (unknown) extremities (units unknown) (unknown) (unknown) (no date) (unknown) (unknown) fevers generally feeling unwell he states his heart rate has been fast. He (units unknown) (unknown) (unknown) (no date) (unknown) (unknown) focal (units unknown) (unknown) (unknown) (no date) (unknown) (unknown) gallops. No JVD. Trace edema bilaterally. (units unknown) (unknown) (unknown) (no date) (unknown) (unknown) had several days of fever. Suspect his AFib RVR is a response to fever and (units unknown) (unknown) (unknown) (no date) (unknown) (unknown) her about any symptoms but she has noted he is had fevers for the last 5 days (units unknown) (unknown) (unknown) (no date) (unknown) (unknown) household members: spouse (units unknown) (unknown) (unknown) (no date) (unknown) (unknown) improvement in rate down to 120s with a systolic pressure of 170s, was given (units unknown) (unknown) (unknown) (no date) (unknown) (unknown) infection. Patient denies other symptoms currently he is diaphoretic but has a (units unknown) (unknown) (unknown) (no date) (unknown) (unknown) infiltrate.? No pleural effusions or pneumothorax.? (units unknown) (unknown) (unknown) (no date) (unknown) (unknown) insulin glargine 100 unit/mL 12 unit SUBCUT BEDTIME 05/11/20 01/15/23 (units unknown) (unknown) (unknown) (no date) (unknown) (unknown) insulin glargine [Lantus U-100 Insulin] 100 unit/mL Solution (units unknown) (unknown) (unknown) (no date) (unknown) (unknown) intact (units unknown) (unknown) (unknown) (no date) (unknown) (unknown) lisinopril 5 mg tablet 5 mg PO DAILY 90 days #90 tabs 12/21/22 (units unknown) (unknown) (unknown) (no date) (unknown) (unknown) lisinopril 5 mg tablet (units unknown) (unknown) (unknown) (no date) (unknown) (unknown) medications regularly. He was admitted for AFib RVR in November and was not (units unknown) (unknown) (unknown) (no date) (unknown) (unknown) metformin 500 mg Tablet (units unknown) (unknown) (unknown) (no date) (unknown) (unknown) metformin 500 mg tablet 500 mg PO BID 05/11/20 01/15/23 (units unknown) (unknown) (unknown) (no date) (unknown) (unknown) metoprolol succinate 50 mg 50 mg PO BID 90 days #180 tabs 12/21/22 (units unknown) (unknown) (unknown) (no date) (unknown) (unknown) metoprolol succinate 50 mg tablet extended release 24 hr (units unknown) (unknown) (unknown) (no date) (unknown) (unknown) moist mucous membranes (units unknown) (unknown) (unknown) (no date) (unknown) (unknown) not follow with a passenger service representative regularly. (units unknown) (unknown) (unknown) (no date) (unknown) (unknown) occupational status: employed (units unknown) (unknown) (unknown) (no date) (unknown) (unknown) on his way here to the hospital. He denies abdominal back or flank pain. He (units unknown) (unknown) (unknown) (no date) (unknown) (unknown) or pneumothorax. (units unknown) (unknown) (unknown) (no date) (unknown) (unknown) piperacillin [From Zosyn] Allergy Severe Uticaria Verified 05/11/20 22:50 (units unknown) (unknown) (unknown) (no date) (unknown) (unknown) quadrants. No guarding or rebound, rigidity, no mass (units unknown) (unknown) (unknown) (no date) (unknown) (unknown) rivaroxaban 20 mg tablet (Xarelto) 20 mg PO QPM 05/11/20 01/15/23 (units unknown) (unknown) (unknown) (no date) (unknown) (unknown) she is been arguing has him for several days to get him to come to the emergency (units unknown) (unknown) (unknown) (no date) (unknown) (unknown) similar appearing ST segments that time his rate was 100 but was in AFib. (units unknown) (unknown) (unknown) (no date) (unknown) (unknown) since Sunday. Patient denies any prior cardiac interventions no heart (units unknown) (unknown) (unknown) (no date) (unknown) (unknown) states he is allergic to a penicillin type medication appears to be Zosyn. (units unknown) (unknown) (unknown) (no date) (unknown) (unknown) states he is felt unwell in general. No syncope. He is had nausea and vomiting (units unknown) (unknown) (unknown) (no date) (unknown) (unknown) subcutaneous solution (Lantus (units unknown) (unknown) (unknown) (no date) (unknown) (unknown) supposed to be anticoagulated on Xarelto, diabetes hypertension and (units unknown) (unknown) (unknown) (no date) (unknown) (unknown) suspect sepsis has part of his current problems. (units unknown) (unknown) (unknown) (no date) (unknown) (unknown) tablet,extended release 24 hr (units unknown) (unknown) (unknown) (no date) (unknown) (unknown) taking medications regularly at that time. Patient presents with 5 days of (units unknown) (unknown) (unknown) (no date) (unknown) (unknown) tazobactam [From Zosyn] Allergy Severe Uticaria Verified 05/11/20 22:50 (units unknown) (unknown) (unknown) (no date) (unknown) (unknown) temperature of 101? F as well. Was given Tylenol, IV diltiazem with some (units unknown) (unknown) (unknown) (no date) (unknown) (unknown) unremarkable.? (units unknown) (unknown) Result panel 415 (unknown) (no date) (unknown) (unknown) Flu A NEGATIVE (units unknown) (unknown) (unknown) (no date) (unknown) (unknown) Flu B NEGATIVE (units unknown) (unknown) (unknown) (no date) (unknown) (unknown) Negative (units unknown) (unknown) (unknown) (no date) (unknown) (unknown) Negative (units unknown) (unknown) Result panel 416 (unknown) (no date) (unknown) (unknown) 2810 pg/ml (unknown) (unknown) (no date) (unknown) (unknown) 2810 pg/ml (unknown) Result panel 417 (unknown) (no date) (unknown) (unknown) 0.50 ng/ml (unknown) (unknown) (no date) (unknown) (unknown) 0.50 ng/ml (unknown) (unknown) (no date) (unknown) (unknown) 2810 pg/ml (unknown) (unknown) (no date) (unknown) (unknown) 2810 pg/ml (unknown) Result panel 418 (unknown) (no date) (unknown) (unknown) (no value) (units unknown) (unknown) (unknown) (no date) (unknown) (unknown) [id number] (units unknown) (unknown) (unknown) (no date) (unknown) (unknown) 01/15/23 01/15/23 01/15/23 Range/Units (units unknown) (unknown) (unknown) (no date) (unknown) (unknown) 01/15/23 01/15/23 Range/Units (units unknown) (unknown) (unknown) (no date) (unknown) (unknown) 01/15/23 15:25 (units unknown) (unknown) (unknown) (no date) (unknown) (unknown) 01/15/23 15:26 (units unknown) (unknown) (unknown) (no date) (unknown) (unknown) 01/15/23 15:30 (units unknown) (unknown) (unknown) (no date) (unknown) (unknown) 01/15/23 15:49 (units unknown) (unknown) (unknown) (no date) (unknown) (unknown) 01/15/23 (units unknown) (unknown) (unknown) (no date) (unknown) (unknown) 12 unit SUBCUT BEDTIME (units unknown) (unknown) (unknown) (no date) (unknown) (unknown) [address] [place] [address] (units unknown) (unknown) (unknown) (no date) (unknown) (unknown) 15:25 15:25 15:25 (units unknown) (unknown) (unknown) (no date) (unknown) (unknown) 15:25 15:49 (units unknown) (unknown) (unknown) (no date) (unknown) (unknown) 15:26 01/15/23 (units unknown) (unknown) (unknown) (no date) (unknown) (unknown) 15:27 01/15/23 (units unknown) (unknown) (unknown) (no date) (unknown) (unknown) 15:27 (units unknown) (unknown) (unknown) (no date) (unknown) (unknown) 15:29 01/15/23 (units unknown) (unknown) (unknown) (no date) (unknown) (unknown) 15:30 01/15/23 (units unknown) (unknown) (unknown) (no date) (unknown) (unknown) 15:30 (units unknown) (unknown) (unknown) (no date) (unknown) (unknown) 15:35 01/15/23 (units unknown) (unknown) (unknown) (no date) (unknown) (unknown) 15:40 (units unknown) (unknown) (unknown) (no date) (unknown) (unknown) 15:45 01/15/23 (units unknown) (unknown) (unknown) (no date) (unknown) (unknown) 15:48 01/15/23 (units unknown) (unknown) (unknown) (no date) (unknown) (unknown) 15:48 (units unknown) (unknown) (unknown) (no date) (unknown) (unknown) 15:50 01/15/23 (units unknown) (unknown) (unknown) (no date) (unknown) (unknown) 15:55 01/15/23 (units unknown) (unknown) (unknown) (no date) (unknown) (unknown) 15:55 (units unknown) (unknown) (unknown) (no date) (unknown) (unknown) 16:00 01/15/23 (units unknown) (unknown) (unknown) (no date) (unknown) (unknown) 16:00 (units unknown) (unknown) (unknown) (no date) (unknown) (unknown) 16:05 01/15/23 (units unknown) (unknown) (unknown) (no date) (unknown) (unknown) 16:10 01/15/23 (units unknown) (unknown) (unknown) (no date) (unknown) (unknown) 16:10 (units unknown) (unknown) (unknown) (no date) (unknown) (unknown) 16:15 01/15/23 (units unknown) (unknown) (unknown) (no date) (unknown) (unknown) 16:15 (units unknown) (unknown) (unknown) (no date) (unknown) (unknown) 16:20 01/15/23 (units unknown) (unknown) (unknown) (no date) (unknown) (unknown) 16:25 01/15/23 (units unknown) (unknown) (unknown) (no date) (unknown) (unknown) 16:25 (units unknown) (unknown) (unknown) (no date) (unknown) (unknown) 16:30 01/15/23 (units unknown) (unknown) (unknown) (no date) (unknown) (unknown) 16:30 (units unknown) (unknown) (unknown) (no date) (unknown) (unknown) 16:35 01/15/23 (units unknown) (unknown) (unknown) (no date) (unknown) (unknown) 16:51 (units unknown) (unknown) (unknown) (no date) (unknown) (unknown) 20 mg PO QPM (units unknown) (unknown) (unknown) (no date) (unknown) (unknown) 5 mg PO DAILY 90 Days Qty: 90 0RF (units unknown) (unknown) (unknown) (no date) (unknown) (unknown) 50 mg PO BID 90 Days Qty: 180 0RF (units unknown) (unknown) (unknown) (no date) (unknown) (unknown) 500 mg PO BID (units unknown) (unknown) (unknown) (no date) (unknown) (unknown) ? (units unknown) (unknown) (unknown) (no date) (unknown) (unknown) ABDOMEN: Soft, nontender. Nondistended. Normoactive bowel sounds all 4 (units unknown) (unknown) (unknown) (no date) (unknown) (unknown) AFib with RVR rate of 169 QRS 82 QTC 449. No clear acute ST elevation. Patient (units unknown) (unknown) (unknown) (no date) (unknown) (unknown) ALT (<50) IU/L (units unknown) (unknown) (unknown) (no date) (unknown) (unknown) ALT 29 (<50) IU/L (units unknown) (unknown) (unknown) (no date) (unknown) (unknown) APTT (26-36) SECONDS (units unknown) (unknown) (unknown) (no date) (unknown) (unknown) APTT 33 (26-36) SECONDS (units unknown) (unknown) (unknown) (no date) (unknown) (unknown) AST (17-59) IU/L (units unknown) (unknown) (unknown) (no date) (unknown) (unknown) AST 32 (17-59) IU/L (units unknown) (unknown) (unknown) (no date) (unknown) (unknown) Accession Number: [id number] ?? (units unknown) (unknown) (unknown) (no date) (unknown) (unknown) Acct:[id number] (units unknown) (unknown) (unknown) (no date) (unknown) (unknown) Acetaminophen (Acetaminophen 325 Mg Tablet) 975 mg PO NOW ONE (units unknown) (unknown) (unknown) (no date) (unknown) (unknown) Admin: 01/15/23 15:43 Dose: 5 mg/hr, 5 mls/hr (units unknown) (unknown) (unknown) (no date) (unknown) (unknown) Admin: 01/15/23 15:45 Dose: 1,000 mls/hr (units unknown) (unknown) (unknown) (no date) (unknown) (unknown) Afib (units unknown) (unknown) (unknown) (no date) (unknown) (unknown) Age/Sex: 67 / M (units unknown) (unknown) (unknown) (no date) (unknown) (unknown) Albumin (3.5-5.0) g/dL (units unknown) (unknown) (unknown) (no date) (unknown) (unknown) Albumin 4.1 (3.5-5.0) g/dL (units unknown) (unknown) (unknown) (no date) (unknown) (unknown) Albumin/Globulin Ratio (1.0-2.8) (units unknown) (unknown) (unknown) (no date) (unknown) (unknown) Albumin/Globulin Ratio 1.1 (1.0-2.8) (units unknown) (unknown) (unknown) (no date) (unknown) (unknown) Alkaline Phosphatase (38-126) U/L (units unknown) (unknown) (unknown) (no date) (unknown) (unknown) Alkaline Phosphatase 97 (38-126) U/L (units unknown) (unknown) (unknown) (no date) (unknown) (unknown) Allergies (units unknown) (unknown) (unknown) (no date) (unknown) (unknown) Allergy/AdvReac Type Severity Reaction Status Date / Time (units unknown) (unknown) (unknown) (no date) (unknown) (unknown) [place] [address] (units unknown) (unknown) (unknown) (no date) (unknown) (unknown) Approved by: Reza Sanchez M.D. on 01/15/2023 at 16:03?? (units unknown) (unknown) (unknown) (no date) (unknown) (unknown) Atrial fibrillation with rapid ventricular response, Sepsis (units unknown) (unknown) (unknown) (no date) (unknown) (unknown) Attestation: I personally reviewed and interpreted this ECG as follows: (units unknown) (unknown) (unknown) (no date) (unknown) (unknown) BNP [NT-proBNP (BNP-Adult 18+)] Stat (units unknown) (unknown) (unknown) (no date) (unknown) (unknown) BUN (9-20) mg/dL (units unknown) (unknown) (unknown) (no date) (unknown) (unknown) BUN 24 H (9-20) mg/dL (units unknown) (unknown) (unknown) (no date) (unknown) (unknown) BUN/Creatinine Ratio (6-22) (units unknown) (unknown) (unknown) (no date) (unknown) (unknown) BUN/Creatinine Ratio 21.4 (6-22) (units unknown) (unknown) (unknown) (no date) (unknown) (unknown) Baso # (Auto) (0-100) /uL (units unknown) (unknown) (unknown) (no date) (unknown) (unknown) Baso # (Auto) 0 (0-100) /uL (units unknown) (unknown) (unknown) (no date) (unknown) (unknown) Baso % (Auto) (0-2) % (units unknown) (unknown) (unknown) (no date) (unknown) (unknown) Baso % (Auto) 0.3 (0-2) % (units unknown) (unknown) (unknown) (no date) (unknown) (unknown) Blood Culture Stat (units unknown) (unknown) (unknown) (no date) (unknown) (unknown) Blood Pressure 119/66 130/56 L (units unknown) (unknown) (unknown) (no date) (unknown) (unknown) Blood Pressure 120/56 L 126/61 (units unknown) (unknown) (unknown) (no date) (unknown) (unknown) Blood Pressure 122/57 L (units unknown) (unknown) (unknown) (no date) (unknown) (unknown) Blood Pressure 125/63 (units unknown) (unknown) (unknown) (no date) (unknown) (unknown) Blood Pressure 126/58 L (units unknown) (unknown) (unknown) (no date) (unknown) (unknown) Blood Pressure 127/57 L (units unknown) (unknown) (unknown) (no date) (unknown) (unknown) Blood Pressure 143/63 H (units unknown) (unknown) (unknown) (no date) (unknown) (unknown) Blood Pressure 156/60 H 122/58 L (units unknown) (unknown) (unknown) (no date) (unknown) (unknown) Blood Pressure 172/92 H (units unknown) (unknown) (unknown) (no date) (unknown) (unknown) Blood Pressure 183/84 H 140/69 (units unknown) (unknown) (unknown) (no date) (unknown) (unknown) Blood Pressure 193/91 H (units unknown) (unknown) (unknown) (no date) (unknown) (unknown) Bones and chest wall:? No suspicious bony lesions.? Overlying soft tissues (units unknown) (unknown) (unknown) (no date) (unknown) (unknown) CARDIOVASCULAR: Irregularly irregular and tachycardic without murmurs, rubs or (units unknown) (unknown) (unknown) (no date) (unknown) (unknown) CK-MB (CK-2) (<2.37) ng/mL (units unknown) (unknown) (unknown) (no date) (unknown) (unknown) CK-MB (CK-2) 1.09 (<2.37) ng/mL (units unknown) (unknown) (unknown) (no date) (unknown) (unknown) CK-MB (CK-2) Rel Index (1.5-5.0) % (units unknown) (unknown) (unknown) (no date) (unknown) (unknown) CK-MB (CK-2) Rel Index 0.8 L (1.5-5.0) % (units unknown) (unknown) (unknown) (no date) (unknown) (unknown) COMPARISON:[facility], CR, XR CHEST 1V, 12/19/2022, 16:16. (units unknown) (unknown) (unknown) (no date) (unknown) (unknown) Calcium (8.4-10.2) mg/dL (units unknown) (unknown) (unknown) (no date) (unknown) (unknown) Calcium 8.9 (8.4-10.2) mg/dL (units unknown) (unknown) (unknown) (no date) (unknown) (unknown) Carbon Dioxide (22-32) mmol/L (units unknown) (unknown) (unknown) (no date) (unknown) (unknown) Carbon Dioxide 19 L (22-32) mmol/L (units unknown) (unknown) (unknown) (no date) (unknown) (unknown) Chest x-ray: (units unknown) (unknown) (unknown) (no date) (unknown) (unknown) Chief Complaint: Arrhythmia/Palpitat ions (units unknown) (unknown) (unknown) (no date) (unknown) (unknown) Chloride (98-107) mmol/L (units unknown) (unknown) (unknown) (no date) (unknown) (unknown) Chloride 96 L (98-107) mmol/L (units unknown) (unknown) (unknown) (no date) (unknown) (unknown) Emma Angel MD [Primary Care Provider] (units unknown) (unknown) (unknown) (no date) (unknown) (unknown) Clinical Impression: (units unknown) (unknown) (unknown) (no date) (unknown) (unknown) Complete Blood Count AUTO DIFF Stat (units unknown) (unknown) (unknown) (no date) (unknown) (unknown) Comprehensive Metabolic Panel Stat (units unknown) (unknown) (unknown) (no date) (unknown) (unknown) Course (units unknown) (unknown) (unknown) (no date) (unknown) (unknown) Covid-19 + FLU A/B + RSV - PCR Stat (units unknown) (unknown) (unknown) (no date) (unknown) (unknown) Creatinine (0.66-1.25) mg/dL (units unknown) (unknown) (unknown) (no date) (unknown) (unknown) Creatinine 1.12 (0.66-1.25) mg/dL (units unknown) (unknown) (unknown) (no date) (unknown) (unknown) DILTIAZEM (Diltiazem 125 Mg/125 Ml-D5w) 125 mg in 125 mls @ 5 mls/hr IV TITRATE (units unknown) (unknown) (unknown) (no date) (unknown) (unknown) : 1955 Acct:[id number] (units unknown) (unknown) (unknown) (no date) (unknown) (unknown) : 1955 (units unknown) (unknown) (unknown) (no date) (unknown) (unknown) Date of Service: 01/15/23 (units unknown) (unknown) (unknown) (no date) (unknown) (unknown) Departure (units unknown) (unknown) (unknown) (no date) (unknown) (unknown) Diabetes mellitus (units unknown) (unknown) (unknown) (no date) (unknown) (unknown) Diabetes (units unknown) (unknown) (unknown) (no date) (unknown) (unknown) Dictated by: Reza Sanchez M.D. on 01/15/2023 at 16:03 ? ? (units unknown) (unknown) (unknown) (no date) (unknown) (unknown) Diltiazem HCl (Diltiazem 5 Mg/Ml Sdv) 10 mg IV NOW ONE (units unknown) (unknown) (unknown) (no date) (unknown) (unknown) Discharge Plan (units unknown) (unknown) (unknown) (no date) (unknown) (unknown) Discontinued Medications (units unknown) (unknown) (unknown) (no date) (unknown) (unknown) Documented By: RL (units unknown) (unknown) (unknown) (no date) (unknown) (unknown) ECG Data (units unknown) (unknown) (unknown) (no date) (unknown) (unknown) ED Orders (units unknown) (unknown) (unknown) (no date) (unknown) (unknown) EKG-12 Lead Stat (units unknown) (unknown) (unknown) (no date) (unknown) (unknown) ER Physician: Gayla Nunez D.O. (units unknown) (unknown) (unknown) (no date) (unknown) (unknown) EXTREMITIES: Normal range of motion, no clubbing or edema. Neurovascularly (units unknown) (unknown) (unknown) (no date) (unknown) (unknown) Emergency Report (units unknown) (unknown) (unknown) (no date) (unknown) (unknown) Eos # (Auto) (0-450) /uL (units unknown) (unknown) (unknown) (no date) (unknown) (unknown) Eos # (Auto) 0 (0-450) /uL (units unknown) (unknown) (unknown) (no date) (unknown) (unknown) Eos % (Auto) (2-4) % (units unknown) (unknown) (unknown) (no date) (unknown) (unknown) Eos % (Auto) 0.0 L (2-4) % (units unknown) (unknown) (unknown) (no date) (unknown) (unknown) Estimated GFR > 60 (>60) mL/min (units unknown) (unknown) (unknown) (no date) (unknown) (unknown) Estimated GFR (>60) mL/min (units unknown) (unknown) (unknown) (no date) (unknown) (unknown) Exam Narrative: (units unknown) (unknown) (unknown) (no date) (unknown) (unknown) Exam (units unknown) (unknown) (unknown) (no date) (unknown) (unknown) FINDINGS:? (units unknown) (unknown) (unknown) (no date) (unknown) (unknown) Family History (units unknown) (unknown) (unknown) (no date) (unknown) (unknown) Father Smoker (units unknown) (unknown) (unknown) (no date) (unknown) (unknown) GENERAL: Alert and oriented x three, diaphoretic in moderate distress patient (units unknown) (unknown) (unknown) (no date) (unknown) (unknown) : No CVA tenderness (units unknown) (unknown) (unknown) (no date) (unknown) (unknown) General (units unknown) (unknown) (unknown) (no date) (unknown) (unknown) Globulin (1.7-4.1) g/dL (units unknown) (unknown) (unknown) (no date) (unknown) (unknown) Globulin 3.6 (1.7-4.1) g/dL (units unknown) (unknown) (unknown) (no date) (unknown) (unknown) Glucose (80-110) mg/dL (units unknown) (unknown) (unknown) (no date) (unknown) (unknown) Glucose 252 H (80-110) mg/dL (units unknown) (unknown) (unknown) (no date) (unknown) (unknown) HEENT: Head normocephalic, atraumatic, EOMI, pupils reactive, face symmetric, (units unknown) (unknown) (unknown) (no date) (unknown) (unknown) HPI - Arrhythmia/Palpitat ions (units unknown) (unknown) (unknown) (no date) (unknown) (unknown) HPI narrative: (units unknown) (unknown) (unknown) (no date) (unknown) (unknown) Hct (41-53) % (units unknown) (unknown) (unknown) (no date) (unknown) (unknown) Hct 43.2 (41-53) % (units unknown) (unknown) (unknown) (no date) (unknown) (unknown) Heart attack (units unknown) (unknown) (unknown) (no date) (unknown) (unknown) Hgb (13.5-17.5) g/dL (units unknown) (unknown) (unknown) (no date) (unknown) (unknown) Hgb 14.6 (13.5-17.5) g/dL (units unknown) (unknown) (unknown) (no date) (unknown) (unknown) History of Present Illness (units unknown) (unknown) (unknown) (no date) (unknown) (unknown) History of hernia repair (units unknown) (unknown) (unknown) (no date) (unknown) (unknown) History of neck surgery (units unknown) (unknown) (unknown) (no date) (unknown) (unknown) Home Medications (units unknown) (unknown) (unknown) (no date) (unknown) (unknown) Hyperlipidemia (units unknown) (unknown) (unknown) (no date) (unknown) (unknown) Hypertension (units unknown) (unknown) (unknown) (no date) (unknown) (unknown) IMPRESSION:? Mild pulmonary vascular congestion.? No focal infiltrate, pleural (units unknown) (unknown) (unknown) (no date) (unknown) (unknown) INDICATIONS:? chest pain (units unknown) (unknown) (unknown) (no date) (unknown) (unknown) INR (0.9-1.3) (units unknown) (unknown) (unknown) (no date) (unknown) (unknown) INR 1.7 H (0.9-1.3) (units unknown) (unknown) (unknown) (no date) (unknown) (unknown) Imaging Data (units unknown) (unknown) (unknown) (no date) (unknown) (unknown) Influenza A (RT-PCR) (NEGATIVE) (units unknown) (unknown) (unknown) (no date) (unknown) (unknown) Influenza A (RT-PCR) Flu a negative (NEGATIVE) (units unknown) (unknown) (unknown) (no date) (unknown) (unknown) Influenza B (RT-PCR) (NEGATIVE) (units unknown) (unknown) (unknown) (no date) (unknown) (unknown) Influenza B (RT-PCR) Flu b negative (NEGATIVE) (units unknown) (unknown) (unknown) (no date) (unknown) (unknown) Initial Vital Signs (units unknown) (unknown) (unknown) (no date) (unknown) (unknown) Initial Vital Signs: (units unknown) (unknown) (unknown) (no date) (unknown) (unknown) Interpretation: (units unknown) (unknown) (unknown) (no date) (unknown) (unknown) [address] [address] (units unknown) (unknown) (unknown) (no date) (unknown) (unknown) [facility] (units unknown) (unknown) (unknown) (no date) (unknown) (unknown) Lab Data (units unknown) (unknown) (unknown) (no date) (unknown) (unknown) Lab Results (units unknown) (unknown) (unknown) (no date) (unknown) (unknown) Labs: (units unknown) (unknown) (unknown) (no date) (unknown) (unknown) Lactate (Lactic Acid) Stat (units unknown) (unknown) (unknown) (no date) (unknown) (unknown) Last Admin: 01/15/23 15:40 Dose: 10 mg (units unknown) (unknown) (unknown) (no date) (unknown) (unknown) Last Admin: 01/15/23 15:41 Dose: 10 mg (units unknown) (unknown) (unknown) (no date) (unknown) (unknown) Last Admin: 01/15/23 16:10 Dose: 975 mg (units unknown) (unknown) (unknown) (no date) (unknown) (unknown) Last Infusion: 01/15/23 16:51 Dose: 0 mls/hr (units unknown) (unknown) (unknown) (no date) (unknown) (unknown) Last Titration: 01/15/23 16:24 Dose: 10 mg/hr, 10 mls/hr (units unknown) (unknown) (unknown) (no date) (unknown) (unknown) Limitations: no limitations (units unknown) (unknown) (unknown) (no date) (unknown) (unknown) Lipase (23-300) U/L (units unknown) (unknown) (unknown) (no date) (unknown) (unknown) Lipase 367 H (23-300) U/L (units unknown) (unknown) (unknown) (no date) (unknown) (unknown) Lipase Stat (units unknown) (unknown) (unknown) (no date) (unknown) (unknown) Loc: ED (units unknown) (unknown) (unknown) (no date) (unknown) (unknown) Lungs and pleura:? Mild pulmonary vascular congestion is seen.? No definite (units unknown) (unknown) (unknown) (no date) (unknown) (unknown) Lymph # (Auto) (9963-4677) /uL (units unknown) (unknown) (unknown) (no date) (unknown) (unknown) Lymph # (Auto) 1400 (5606-7949) /uL (units unknown) (unknown) (unknown) (no date) (unknown) (unknown) Lymph % (Auto) (25-40) % (units unknown) (unknown) (unknown) (no date) (unknown) (unknown) Lymph % (Auto) 9.0 L (25-40) % (units unknown) (unknown) (unknown) (no date) (unknown) (unknown) MCH (26-34) PG (units unknown) (unknown) (unknown) (no date) (unknown) (unknown) MCH 29.3 (26-34) PG (units unknown) (unknown) (unknown) (no date) (unknown) (unknown) MCHC (30-36) % (units unknown) (unknown) (unknown) (no date) (unknown) (unknown) MCHC 33.8 (30-36) % (units unknown) (unknown) (unknown) (no date) (unknown) (unknown) MCV (80-100) fL (units unknown) (unknown) (unknown) (no date) (unknown) (unknown) MCV 86.5 (80-100) fL (units unknown) (unknown) (unknown) (no date) (unknown) (unknown) MDM - Arrhythmia/Palpitat ions (units unknown) (unknown) (unknown) (no date) (unknown) (unknown) MDM Narrative (units unknown) (unknown) (unknown) (no date) (unknown) (unknown) MR#: [id number] (units unknown) (unknown) (unknown) (no date) (unknown) (unknown) Magnesium (1.6-2.3) mg/dL (units unknown) (unknown) (unknown) (no date) (unknown) (unknown) Magnesium 1.2 L (1.6-2.3) mg/dL (units unknown) (unknown) (unknown) (no date) (unknown) (unknown) Magnesium Stat (units unknown) (unknown) (unknown) (no date) (unknown) (unknown) Mediastinum:? Mediastinal contours appear normal.? Heart size is enlarged.? (units unknown) (unknown) (unknown) (no date) (unknown) (unknown) Medical History (Updated 01/15/23 @ 17:16 by Gayla Nunez DO) (units unknown) (unknown) (unknown) (no date) (unknown) (unknown) Medical decision making narrative: (units unknown) (unknown) (unknown) (no date) (unknown) (unknown) Medication Instructions Recorded Confirmed (units unknown) (unknown) (unknown) (no date) (unknown) (unknown) Medication Instructions Recorded (units unknown) (unknown) (unknown) (no date) (unknown) (unknown) Mode of arrival: Family Vehicle (units unknown) (unknown) (unknown) (no date) (unknown) (unknown) [place] # (Auto) (0-900) /uL (units unknown) (unknown) (unknown) (no date) (unknown) (unknown) [place] # (Auto) 1500 H (0-900) /uL (units unknown) (unknown) (unknown) (no date) (unknown) (unknown) [place] % (Auto) (3-14) % (units unknown) (unknown) (unknown) (no date) (unknown) (unknown) [place] % (Auto) 9.2 (3-14) % (units unknown) (unknown) (unknown) (no date) (unknown) (unknown) Mother No significant medical problems (units unknown) (unknown) (unknown) (no date) (unknown) (unknown) NECK: Supple, full range of motion (units unknown) (unknown) (unknown) (no date) (unknown) (unknown) NEUROLOGICAL: Cranial nerves II through XII grossly intact. Moving all (units unknown) (unknown) (unknown) (no date) (unknown) (unknown) NT-Pro-B Natriuret Pep (<125) pg/mL (units unknown) (unknown) (unknown) (no date) (unknown) (unknown) NT-Pro-B Natriuret Pep 2810 H (<125) pg/mL (units unknown) (unknown) (unknown) (no date) (unknown) (unknown) Narrative (units unknown) (unknown) (unknown) (no date) (unknown) (unknown) Neuropathy of both feet (units unknown) (unknown) (unknown) (no date) (unknown) (unknown) Neut # (Auto) (8980-9287) /uL (units unknown) (unknown) (unknown) (no date) (unknown) (unknown) Neut # (Auto) 32281 H (1393-7550) /uL (units unknown) (unknown) (unknown) (no date) (unknown) (unknown) Neut % (Auto) (50-75) % (units unknown) (unknown) (unknown) (no date) (unknown) (unknown) Neut % (Auto) 81.5 H (50-75) % (units unknown) (unknown) (unknown) (no date) (unknown) (unknown) No Action (units unknown) (unknown) (unknown) (no date) (unknown) (unknown) Ondansetron HCl (Ondansetron 4 Mg/2 Ml Inj) 4 mg IV Q6HR PRN (units unknown) (unknown) (unknown) (no date) (unknown) (unknown) Ordered: (units unknown) (unknown) (unknown) (no date) (unknown) (unknown) Ordering Provider: Mank,Gayla C D.O. (units unknown) (unknown) (unknown) (no date) (unknown) (unknown) Orders (units unknown) (unknown) (unknown) (no date) (unknown) (unknown) Oxygen Delivery Method Room Air (units unknown) (unknown) (unknown) (no date) (unknown) (unknown) Oxygen Delivery Method (units unknown) (unknown) (unknown) (no date) (unknown) (unknown) PRN Reason: Nausea And Vomiting (units unknown) (unknown) (unknown) (no date) (unknown) (unknown) PROCEDURE:? XR CHEST 1V (units unknown) (unknown) (unknown) (no date) (unknown) (unknown) PT (10.1-12.7) SECONDS (units unknown) (unknown) (unknown) (no date) (unknown) (unknown) PT 19.2 H (10.1-12.7) SECONDS (units unknown) (unknown) (unknown) (no date) (unknown) (unknown) PTT Partial Thromboplastin Chuckie Stat (units unknown) (unknown) (unknown) (no date) (unknown) (unknown) Patient History (units unknown) (unknown) (unknown) (no date) (unknown) (unknown) Patient denies active tobacco, alcohol or illicit drug use. He is accompanied (units unknown) (unknown) (unknown) (no date) (unknown) (unknown) Patient: Arvind Brock MR#: [id number] (units unknown) (unknown) (unknown) (no date) (unknown) (unknown) Patient: Arvind Brock (units unknown) (unknown) (unknown) (no date) (unknown) (unknown) Plt Count (150-400) X103/uL (units unknown) (unknown) (unknown) (no date) (unknown) (unknown) Plt Count 162 (150-400) X103/uL (units unknown) (unknown) (unknown) (no date) (unknown) (unknown) Potassium (3.4-5.1) mmol/L (units unknown) (unknown) (unknown) (no date) (unknown) (unknown) Potassium 4.5 (3.4-5.1) mmol/L (units unknown) (unknown) (unknown) (no date) (unknown) (unknown) Prescriptions: (units unknown) (unknown) (unknown) (no date) (unknown) (unknown) Previous Rx's (units unknown) (unknown) (unknown) (no date) (unknown) (unknown) Prior ECG tracings: available for review (units unknown) (unknown) (unknown) (no date) (unknown) (unknown) Procalcitonin (<0.5) ng/mL (units unknown) (unknown) (unknown) (no date) (unknown) (unknown) Procalcitonin 0.50 (<0.5) ng/mL (units unknown) (unknown) (unknown) (no date) (unknown) (unknown) Procalcitonin Stat (units unknown) (unknown) (unknown) (no date) (unknown) (unknown) Procedure: XR chest 1V (units unknown) (unknown) (unknown) (no date) (unknown) (unknown) Prothrombin Time INR Stat (units unknown) (unknown) (unknown) (no date) (unknown) (unknown) Pulse Oximetry 93 94 (units unknown) (unknown) (unknown) (no date) (unknown) (unknown) Pulse Oximetry 93 (units unknown) (unknown) (unknown) (no date) (unknown) (unknown) Pulse Oximetry 94 95 (units unknown) (unknown) (unknown) (no date) (unknown) (unknown) Pulse Oximetry 94 (units unknown) (unknown) (unknown) (no date) (unknown) (unknown) Pulse Oximetry 95 01/15/23 15:26 (units unknown) (unknown) (unknown) (no date) (unknown) (unknown) Pulse Oximetry 95 96 (units unknown) (unknown) (unknown) (no date) (unknown) (unknown) Pulse Oximetry 95 (units unknown) (unknown) (unknown) (no date) (unknown) (unknown) Pulse Oximetry 96 (units unknown) (unknown) (unknown) (no date) (unknown) (unknown) Pulse Oximetry 99 95 93 (units unknown) (unknown) (unknown) (no date) (unknown) (unknown) Pulse Rate 106 H 110 H (units unknown) (unknown) (unknown) (no date) (unknown) (unknown) Pulse Rate 106 H (units unknown) (unknown) (unknown) (no date) (unknown) (unknown) Pulse Rate 108 H 105 H (units unknown) (unknown) (unknown) (no date) (unknown) (unknown) Pulse Rate 108 H (units unknown) (unknown) (unknown) (no date) (unknown) (unknown) Pulse Rate 110 H 109 H (units unknown) (unknown) (unknown) (no date) (unknown) (unknown) Pulse Rate 112 H (units unknown) (unknown) (unknown) (no date) (unknown) (unknown) Pulse Rate 116 H (units unknown) (unknown) (unknown) (no date) (unknown) (unknown) Pulse Rate 123 H 118 H (units unknown) (unknown) (unknown) (no date) (unknown) (unknown) Pulse Rate 135 H (units unknown) (unknown) (unknown) (no date) (unknown) (unknown) Pulse Rate 138 H 126 H (units unknown) (unknown) (unknown) (no date) (unknown) (unknown) Pulse Rate 172 H 01/15/23 15:26 (units unknown) (unknown) (unknown) (no date) (unknown) (unknown) Pulse Rate 209 H 172 H 172 H (units unknown) (unknown) (unknown) (no date) (unknown) (unknown) RBC (4.5-5.9) X106/uL (units unknown) (unknown) (unknown) (no date) (unknown) (unknown) RBC 5.00 (4.5-5.9) X106/uL (units unknown) (unknown) (unknown) (no date) (unknown) (unknown) RDW (11.6-14.8) % (units unknown) (unknown) (unknown) (no date) (unknown) (unknown) RDW 15.3 H (11.6-14.8) % (units unknown) (unknown) (unknown) (no date) (unknown) (unknown) RESPIRATORY: Breath sounds equal bilaterally, no wheezes rales or rhonchi. No (units unknown) (unknown) (unknown) (no date) (unknown) (unknown) ROS Unobtainable: All systems reviewed + are unremarkable except as noted in HPI (units unknown) (unknown) (unknown) (no date) (unknown) (unknown) RSV (PCR) (Negative) (units unknown) (unknown) (unknown) (no date) (unknown) (unknown) RSV (PCR) Negative (Negative) (units unknown) (unknown) (unknown) (no date) (unknown) (unknown) Radiologist's Impresson: (units unknown) (unknown) (unknown) (no date) (unknown) (unknown) Referrals: (units unknown) (unknown) (unknown) (no date) (unknown) (unknown) Related Data (units unknown) (unknown) (unknown) (no date) (unknown) (unknown) Respiratory Rate 30 H 51 H 53 H (units unknown) (unknown) (unknown) (no date) (unknown) (unknown) Respiratory Rate 34 H (units unknown) (unknown) (unknown) (no date) (unknown) (unknown) Respiratory Rate 37 H 39 H (units unknown) (unknown) (unknown) (no date) (unknown) (unknown) Respiratory Rate 37 H (units unknown) (unknown) (unknown) (no date) (unknown) (unknown) Respiratory Rate 38 H 37 H (units unknown) (unknown) (unknown) (no date) (unknown) (unknown) Respiratory Rate 38 H (units unknown) (unknown) (unknown) (no date) (unknown) (unknown) Respiratory Rate 39 H (units unknown) (unknown) (unknown) (no date) (unknown) (unknown) Respiratory Rate 40 H 39 H (units unknown) (unknown) (unknown) (no date) (unknown) (unknown) Respiratory Rate 43 H 44 H (units unknown) (unknown) (unknown) (no date) (unknown) (unknown) Respiratory Rate 47 H (units unknown) (unknown) (unknown) (no date) (unknown) (unknown) Respiratory Rate 51 H 01/15/23 15:26 (units unknown) (unknown) (unknown) (no date) (unknown) (unknown) Respiratory Rate 51 H (units unknown) (unknown) (unknown) (no date) (unknown) (unknown) Review of Systems (units unknown) (unknown) (unknown) (no date) (unknown) (unknown) SARS-CoV-2 (PCR) (Negative) (units unknown) (unknown) (unknown) (no date) (unknown) (unknown) SARS-CoV-2 (PCR) Negative (Negative) (units unknown) (unknown) (unknown) (no date) (unknown) (unknown) DEIDRA; Protocol (units unknown) (unknown) (unknown) (no date) (unknown) (unknown) SKIN: Warm, diaphoretic, no petechiae, no rashes or lesions. (units unknown) (unknown) (unknown) (no date) (unknown) (unknown) Signed By: (units unknown) (unknown) (unknown) (no date) (unknown) (unknown) Signed (units unknown) (unknown) (unknown) (no date) (unknown) (unknown) Smoking Status: Never smoker (units unknown) (unknown) (unknown) (no date) (unknown) (unknown) Social History (units unknown) (unknown) (unknown) (no date) (unknown) (unknown) Sodium (137-145) mmol/L (units unknown) (unknown) (unknown) (no date) (unknown) (unknown) Sodium 128 L (137-145) mmol/L (units unknown) (unknown) (unknown) (no date) (unknown) (unknown) Sodium Chloride (Normal Saline 0.9%) 1,000 mls @ 1,000 mls/hr IV BOLUS ONE (units unknown) (unknown) (unknown) (no date) (unknown) (unknown) Source: patient, family, RN notes reviewed and old records reviewed (units unknown) (unknown) (unknown) (no date) (unknown) (unknown) Stated Complaint: vomiting/shaking/fe trell (units unknown) (unknown) (unknown) (no date) (unknown) (unknown) Stop: 01/15/23 15:28 (units unknown) (unknown) (unknown) (no date) (unknown) (unknown) Stop: 01/15/23 15:38 (units unknown) (unknown) (unknown) (no date) (unknown) (unknown) Stop: 01/15/23 15:59 (units unknown) (unknown) (unknown) (no date) (unknown) (unknown) Stop: 01/15/23 16:29 (units unknown) (unknown) (unknown) (no date) (unknown) (unknown) Substance Use Type: does not use (units unknown) (unknown) (unknown) (no date) (unknown) (unknown) Surgical History (units unknown) (unknown) (unknown) (no date) (unknown) (unknown) Surgical changes and devices:? None.? (units unknown) (unknown) (unknown) (no date) (unknown) (unknown) TECHNIQUE:? One view of the chest was acquired.? (units unknown) (unknown) (unknown) (no date) (unknown) (unknown) Temperature 101 F H (units unknown) (unknown) (unknown) (no date) (unknown) (unknown) Temperature 101.1 F H (units unknown) (unknown) (unknown) (no date) (unknown) (unknown) Temperature (units unknown) (unknown) (unknown) (no date) (unknown) (unknown) This is a 67-year-old male who presents with AFib RVR but is also febrile and (units unknown) (unknown) (unknown) (no date) (unknown) (unknown) This is a 67-year-old male with known history of atrial fibrillation who is (units unknown) (unknown) (unknown) (no date) (unknown) (unknown) Time Seen by Provider: 01/15/23 15:29 (units unknown) (unknown) (unknown) (no date) (unknown) (unknown) Total Bilirubin (0.2-1.3) mg/dL (units unknown) (unknown) (unknown) (no date) (unknown) (unknown) Total Bilirubin 1.2 (0.2-1.3) mg/dL (units unknown) (unknown) (unknown) (no date) (unknown) (unknown) Total Creatine Kinase (55-170) U/L (units unknown) (unknown) (unknown) (no date) (unknown) (unknown) Total Creatine Kinase 133 (55-170) U/L (units unknown) (unknown) (unknown) (no date) (unknown) (unknown) Total Protein (6.3-8.2) g/dL (units unknown) (unknown) (unknown) (no date) (unknown) (unknown) Total Protein 7.7 (6.3-8.2) g/dL (units unknown) (unknown) (unknown) (no date) (unknown) (unknown) Troponin + CK Cardiac Panel Stat (units unknown) (unknown) (unknown) (no date) (unknown) (unknown) Troponin I (0.01-0.034) ng/mL (units unknown) (unknown) (unknown) (no date) (unknown) (unknown) Troponin I 0.016 (0.01-0.034) ng/mL (units unknown) (unknown) (unknown) (no date) (unknown) (unknown) U-100 Insulin) (units unknown) (unknown) (unknown) (no date) (unknown) (unknown) UA Complete [Urinalysis and Microscopic] Stat (units unknown) (unknown) (unknown) (no date) (unknown) (unknown) Vital Signs - 8 hr (units unknown) (unknown) (unknown) (no date) (unknown) (unknown) Vital Signs (units unknown) (unknown) (unknown) (no date) (unknown) (unknown) Vital signs: (units unknown) (unknown) (unknown) (no date) (unknown) (unknown) WBC (4.5-11.0) X103/uL (units unknown) (unknown) (unknown) (no date) (unknown) (unknown) WBC 15.9 H (4.5-11.0) X103/uL (units unknown) (unknown) (unknown) (no date) (unknown) (unknown) XR chest 1V Stat (units unknown) (unknown) (unknown) (no date) (unknown) (unknown) XRay Report (units unknown) (unknown) (unknown) (no date) (unknown) (unknown) Xarelto 20 mg Tablet (units unknown) (unknown) (unknown) (no date) (unknown) (unknown) [Embedded Image Not Available] (units unknown) (unknown) (unknown) (no date) (unknown) (unknown) accessory muscle use. Mild tachypnea. (units unknown) (unknown) (unknown) (no date) (unknown) (unknown) additional 10 mg dose and plan for drip. Patient was also given fluids size (units unknown) (unknown) (unknown) (no date) (unknown) (unknown) alcohol intake frequency: other (units unknown) (unknown) (unknown) (no date) (unknown) (unknown) alcohol intake: never (units unknown) (unknown) (unknown) (no date) (unknown) (unknown) and below (units unknown) (unknown) (unknown) (no date) (unknown) (unknown) any new swelling in his extremities. His states he has not been telling (units unknown) (unknown) (unknown) (no date) (unknown) (unknown) appear (units unknown) (unknown) (unknown) (no date) (unknown) (unknown) by his who brought him today who states he refused transport via EMS and (units unknown) (unknown) (unknown) (no date) (unknown) (unknown) catheterization or stress test no ablation. He denies any prior surgeries. He (units unknown) (unknown) (unknown) (no date) (unknown) (unknown) denies chest pain or shortness of breath he does state he is had some fever, he (units unknown) (unknown) (unknown) (no date) (unknown) (unknown) denies diarrhea constipation he denies dysuria urgency or frequency. He denies (units unknown) (unknown) (unknown) (no date) (unknown) (unknown) department. Patient states his primary care is [facility]. He does (units unknown) (unknown) (unknown) (no date) (unknown) (unknown) does answer questions appropriately but appears to feel unwell (units unknown) (unknown) (unknown) (no date) (unknown) (unknown) does have some depression in 1 and aVL. Patient has prior from 12/18/2022 with (units unknown) (unknown) (unknown) (no date) (unknown) (unknown) dyslipidemia. According to patient's she is unsure if he is taking his (units unknown) (unknown) (unknown) (no date) (unknown) (unknown) effusion (units unknown) (unknown) (unknown) (no date) (unknown) (unknown) extremities (units unknown) (unknown) (unknown) (no date) (unknown) (unknown) fevers generally feeling unwell he states his heart rate has been fast. He (units unknown) (unknown) (unknown) (no date) (unknown) (unknown) focal (units unknown) (unknown) (unknown) (no date) (unknown) (unknown) gallops. No JVD. Trace edema bilaterally. (units unknown) (unknown) (unknown) (no date) (unknown) (unknown) had several days of fever. Suspect his AFib RVR is a response to fever and (units unknown) (unknown) (unknown) (no date) (unknown) (unknown) her about any symptoms but she has noted he is had fevers for the last 5 days (units unknown) (unknown) (unknown) (no date) (unknown) (unknown) household members: spouse (units unknown) (unknown) (unknown) (no date) (unknown) (unknown) improvement in rate down to 120s with a systolic pressure of 170s, was given (units unknown) (unknown) (unknown) (no date) (unknown) (unknown) infection. Patient denies other symptoms currently he is diaphoretic but has a (units unknown) (unknown) (unknown) (no date) (unknown) (unknown) infiltrate.? No pleural effusions or pneumothorax.? (units unknown) (unknown) (unknown) (no date) (unknown) (unknown) insulin glargine 100 unit/mL 12 unit SUBCUT BEDTIME 05/11/20 01/15/23 (units unknown) (unknown) (unknown) (no date) (unknown) (unknown) insulin glargine [Lantus U-100 Insulin] 100 unit/mL Solution (units unknown) (unknown) (unknown) (no date) (unknown) (unknown) intact (units unknown) (unknown) (unknown) (no date) (unknown) (unknown) lisinopril 5 mg tablet 5 mg PO DAILY 90 days #90 tabs 12/21/22 (units unknown) (unknown) (unknown) (no date) (unknown) (unknown) lisinopril 5 mg tablet (units unknown) (unknown) (unknown) (no date) (unknown) (unknown) medications regularly. He was admitted for AFib RVR in November and was not (units unknown) (unknown) (unknown) (no date) (unknown) (unknown) metformin 500 mg Tablet (units unknown) (unknown) (unknown) (no date) (unknown) (unknown) metformin 500 mg tablet 500 mg PO BID 05/11/20 01/15/23 (units unknown) (unknown) (unknown) (no date) (unknown) (unknown) metoprolol succinate 50 mg 50 mg PO BID 90 days #180 tabs 12/21/22 (units unknown) (unknown) (unknown) (no date) (unknown) (unknown) metoprolol succinate 50 mg tablet extended release 24 hr (units unknown) (unknown) (unknown) (no date) (unknown) (unknown) moist mucous membranes (units unknown) (unknown) (unknown) (no date) (unknown) (unknown) not follow with a passenger service representative regularly. (units unknown) (unknown) (unknown) (no date) (unknown) (unknown) occupational status: employed (units unknown) (unknown) (unknown) (no date) (unknown) (unknown) on his way here to the hospital. He denies abdominal back or flank pain. He (units unknown) (unknown) (unknown) (no date) (unknown) (unknown) or pneumothorax. (units unknown) (unknown) (unknown) (no date) (unknown) (unknown) piperacillin [From Zosyn] Allergy Severe Uticaria Verified 05/11/20 22:50 (units unknown) (unknown) (unknown) (no date) (unknown) (unknown) quadrants. No guarding or rebound, rigidity, no mass (units unknown) (unknown) (unknown) (no date) (unknown) (unknown) rivaroxaban 20 mg tablet (Xarelto) 20 mg PO QPM 05/11/20 01/15/23 (units unknown) (unknown) (unknown) (no date) (unknown) (unknown) she is been arguing has him for several days to get him to come to the emergency (units unknown) (unknown) (unknown) (no date) (unknown) (unknown) similar appearing ST segments that time his rate was 100 but was in AFib. (units unknown) (unknown) (unknown) (no date) (unknown) (unknown) since Sunday. Patient denies any prior cardiac interventions no heart (units unknown) (unknown) (unknown) (no date) (unknown) (unknown) states he is allergic to a penicillin type medication appears to be Zosyn. (units unknown) (unknown) (unknown) (no date) (unknown) (unknown) states he is felt unwell in general. No syncope. He is had nausea and vomiting (units unknown) (unknown) (unknown) (no date) (unknown) (unknown) subcutaneous solution (Lantus (units unknown) (unknown) (unknown) (no date) (unknown) (unknown) supposed to be anticoagulated on Xarelto, diabetes hypertension and (units unknown) (unknown) (unknown) (no date) (unknown) (unknown) suspect sepsis has part of his current problems. (units unknown) (unknown) (unknown) (no date) (unknown) (unknown) tablet,extended release 24 hr (units unknown) (unknown) (unknown) (no date) (unknown) (unknown) taking medications regularly at that time. Patient presents with 5 days of (units unknown) (unknown) (unknown) (no date) (unknown) (unknown) tazobactam [From Zosyn] Allergy Severe Uticaria Verified 05/11/20 22:50 (units unknown) (unknown) (unknown) (no date) (unknown) (unknown) temperature of 101? F as well. Was given Tylenol, IV diltiazem with some (units unknown) (unknown) (unknown) (no date) (unknown) (unknown) unremarkable.? (units unknown) (unknown) Result panel 419 (unknown) (no date) (unknown) (unknown) (no value) (units unknown) (unknown) (unknown) (no date) (unknown) (unknown) [id number] (units unknown) (unknown) (unknown) (no date) (unknown) (unknown) 01/15/23 01/15/23 01/15/23 Range/Units (units unknown) (unknown) (unknown) (no date) (unknown) (unknown) 01/15/23 01/15/23 Range/Units (units unknown) (unknown) (unknown) (no date) (unknown) (unknown) 01/15/23 15:25 (units unknown) (unknown) (unknown) (no date) (unknown) (unknown) 01/15/23 15:26 (units unknown) (unknown) (unknown) (no date) (unknown) (unknown) 01/15/23 15:30 (units unknown) (unknown) (unknown) (no date) (unknown) (unknown) 01/15/23 15:49 (units unknown) (unknown) (unknown) (no date) (unknown) (unknown) 01/15/23 (units unknown) (unknown) (unknown) (no date) (unknown) (unknown) 12 unit SUBCUT BEDTIME (units unknown) (unknown) (unknown) (no date) (unknown) (unknown) [address] [place] [address] (units unknown) (unknown) (unknown) (no date) (unknown) (unknown) 15:25 15:25 15:25 (units unknown) (unknown) (unknown) (no date) (unknown) (unknown) 15:25 15:49 (units unknown) (unknown) (unknown) (no date) (unknown) (unknown) 15:26 01/15/23 (units unknown) (unknown) (unknown) (no date) (unknown) (unknown) 15:27 01/15/23 (units unknown) (unknown) (unknown) (no date) (unknown) (unknown) 15:27 (units unknown) (unknown) (unknown) (no date) (unknown) (unknown) 15:29 01/15/23 (units unknown) (unknown) (unknown) (no date) (unknown) (unknown) 15:30 01/15/23 (units unknown) (unknown) (unknown) (no date) (unknown) (unknown) 15:30 (units unknown) (unknown) (unknown) (no date) (unknown) (unknown) 15:35 01/15/23 (units unknown) (unknown) (unknown) (no date) (unknown) (unknown) 15:40 (units unknown) (unknown) (unknown) (no date) (unknown) (unknown) 15:45 01/15/23 (units unknown) (unknown) (unknown) (no date) (unknown) (unknown) 15:48 01/15/23 (units unknown) (unknown) (unknown) (no date) (unknown) (unknown) 15:48 (units unknown) (unknown) (unknown) (no date) (unknown) (unknown) 15:50 01/15/23 (units unknown) (unknown) (unknown) (no date) (unknown) (unknown) 15:55 01/15/23 (units unknown) (unknown) (unknown) (no date) (unknown) (unknown) 15:55 (units unknown) (unknown) (unknown) (no date) (unknown) (unknown) 16:00 01/15/23 (units unknown) (unknown) (unknown) (no date) (unknown) (unknown) 16:00 (units unknown) (unknown) (unknown) (no date) (unknown) (unknown) 16:05 01/15/23 (units unknown) (unknown) (unknown) (no date) (unknown) (unknown) 16:10 01/15/23 (units unknown) (unknown) (unknown) (no date) (unknown) (unknown) 16:10 (units unknown) (unknown) (unknown) (no date) (unknown) (unknown) 16:15 01/15/23 (units unknown) (unknown) (unknown) (no date) (unknown) (unknown) 16:15 (units unknown) (unknown) (unknown) (no date) (unknown) (unknown) 16:20 01/15/23 (units unknown) (unknown) (unknown) (no date) (unknown) (unknown) 16:25 01/15/23 (units unknown) (unknown) (unknown) (no date) (unknown) (unknown) 16:25 (units unknown) (unknown) (unknown) (no date) (unknown) (unknown) 16:30 01/15/23 (units unknown) (unknown) (unknown) (no date) (unknown) (unknown) 16:30 (units unknown) (unknown) (unknown) (no date) (unknown) (unknown) 16:35 01/15/23 (units unknown) (unknown) (unknown) (no date) (unknown) (unknown) 16:51 (units unknown) (unknown) (unknown) (no date) (unknown) (unknown) 19 creatinine 1.12 but appears similar to his prior to beginning of the month (units unknown) (unknown) (unknown) (no date) (unknown) (unknown) 20 mg PO QPM (units unknown) (unknown) (unknown) (no date) (unknown) (unknown) 35-40%. (units unknown) (unknown) (unknown) (no date) (unknown) (unknown) 5 mg PO DAILY 90 Days Qty: 90 0RF (units unknown) (unknown) (unknown) (no date) (unknown) (unknown) 50 mg PO BID 90 Days Qty: 180 0RF (units unknown) (unknown) (unknown) (no date) (unknown) (unknown) 500 mg PO BID (units unknown) (unknown) (unknown) (no date) (unknown) (unknown) ? (units unknown) (unknown) (unknown) (no date) (unknown) (unknown) ABDOMEN: Soft, nontender. Nondistended. Normoactive bowel sounds all 4 (units unknown) (unknown) (unknown) (no date) (unknown) (unknown) AFib with RVR rate of 169 QRS 82 QTC 449. No clear acute ST elevation. Patient (units unknown) (unknown) (unknown) (no date) (unknown) (unknown) ALT (<50) IU/L (units unknown) (unknown) (unknown) (no date) (unknown) (unknown) ALT 29 (<50) IU/L (units unknown) (unknown) (unknown) (no date) (unknown) (unknown) APTT (26-36) SECONDS (units unknown) (unknown) (unknown) (no date) (unknown) (unknown) APTT 33 (26-36) SECONDS (units unknown) (unknown) (unknown) (no date) (unknown) (unknown) AST (17-59) IU/L (units unknown) (unknown) (unknown) (no date) (unknown) (unknown) AST 32 (17-59) IU/L (units unknown) (unknown) (unknown) (no date) (unknown) (unknown) Accession Number: [id number] ?? (units unknown) (unknown) (unknown) (no date) (unknown) (unknown) Acct:[id number] (units unknown) (unknown) (unknown) (no date) (unknown) (unknown) Acetaminophen (Acetaminophen 325 Mg Tablet) 975 mg PO NOW ONE (units unknown) (unknown) (unknown) (no date) (unknown) (unknown) Admin: 01/15/23 15:43 Dose: 5 mg/hr, 5 mls/hr (units unknown) (unknown) (unknown) (no date) (unknown) (unknown) Admin: 01/15/23 15:45 Dose: 1,000 mls/hr (units unknown) (unknown) (unknown) (no date) (unknown) (unknown) Admit Date/Time: 01/15/23 17:20 (units unknown) (unknown) (unknown) (no date) (unknown) (unknown) Afib (units unknown) (unknown) (unknown) (no date) (unknown) (unknown) Age/Sex: 67 / M (units unknown) (unknown) (unknown) (no date) (unknown) (unknown) Albumin (3.5-5.0) g/dL (units unknown) (unknown) (unknown) (no date) (unknown) (unknown) Albumin 4.1 (3.5-5.0) g/dL (units unknown) (unknown) (unknown) (no date) (unknown) (unknown) Albumin/Globulin Ratio (1.0-2.8) (units unknown) (unknown) (unknown) (no date) (unknown) (unknown) Albumin/Globulin Ratio 1.1 (1.0-2.8) (units unknown) (unknown) (unknown) (no date) (unknown) (unknown) Alkaline Phosphatase (38-126) U/L (units unknown) (unknown) (unknown) (no date) (unknown) (unknown) Alkaline Phosphatase 97 (38-126) U/L (units unknown) (unknown) (unknown) (no date) (unknown) (unknown) Allergies (units unknown) (unknown) (unknown) (no date) (unknown) (unknown) Allergy/AdvReac Type Severity Reaction Status Date / Time (units unknown) (unknown) (unknown) (no date) (unknown) (unknown) [place] [address] (units unknown) (unknown) (unknown) (no date) (unknown) (unknown) Approved by: Reza Sanchez M.D. on 01/15/2023 at 16:03?? (units unknown) (unknown) (unknown) (no date) (unknown) (unknown) Atrial fibrillation with rapid ventricular response, Sepsis (units unknown) (unknown) (unknown) (no date) (unknown) (unknown) Attestation: I personally reviewed and interpreted this ECG as follows: (units unknown) (unknown) (unknown) (no date) (unknown) (unknown) Attestation: (units unknown) (unknown) (unknown) (no date) (unknown) (unknown) BNP [NT-proBNP (BNP-Adult 18+)] Stat (units unknown) (unknown) (unknown) (no date) (unknown) (unknown) BUN (9-20) mg/dL (units unknown) (unknown) (unknown) (no date) (unknown) (unknown) BUN 24 H (9-20) mg/dL (units unknown) (unknown) (unknown) (no date) (unknown) (unknown) BUN/Creatinine Ratio (6-22) (units unknown) (unknown) (unknown) (no date) (unknown) (unknown) BUN/Creatinine Ratio 21.4 (6-22) (units unknown) (unknown) (unknown) (no date) (unknown) (unknown) Baso # (Auto) (0-100) /uL (units unknown) (unknown) (unknown) (no date) (unknown) (unknown) Baso # (Auto) 0 (0-100) /uL (units unknown) (unknown) (unknown) (no date) (unknown) (unknown) Baso % (Auto) (0-2) % (units unknown) (unknown) (unknown) (no date) (unknown) (unknown) Baso % (Auto) 0.3 (0-2) % (units unknown) (unknown) (unknown) (no date) (unknown) (unknown) Blood Culture Stat (units unknown) (unknown) (unknown) (no date) (unknown) (unknown) Blood Pressure 119/66 130/56 L (units unknown) (unknown) (unknown) (no date) (unknown) (unknown) Blood Pressure 120/56 L 126/61 (units unknown) (unknown) (unknown) (no date) (unknown) (unknown) Blood Pressure 122/57 L (units unknown) (unknown) (unknown) (no date) (unknown) (unknown) Blood Pressure 125/63 (units unknown) (unknown) (unknown) (no date) (unknown) (unknown) Blood Pressure 126/58 L (units unknown) (unknown) (unknown) (no date) (unknown) (unknown) Blood Pressure 127/57 L (units unknown) (unknown) (unknown) (no date) (unknown) (unknown) Blood Pressure 143/63 H (units unknown) (unknown) (unknown) (no date) (unknown) (unknown) Blood Pressure 156/60 H 122/58 L (units unknown) (unknown) (unknown) (no date) (unknown) (unknown) Blood Pressure 172/92 H (units unknown) (unknown) (unknown) (no date) (unknown) (unknown) Blood Pressure 183/84 H 140/69 (units unknown) (unknown) (unknown) (no date) (unknown) (unknown) Blood Pressure 193/91 H (units unknown) (unknown) (unknown) (no date) (unknown) (unknown) Bones and chest wall:? No suspicious bony lesions.? Overlying soft tissues (units unknown) (unknown) (unknown) (no date) (unknown) (unknown) CARDIOVASCULAR: Irregularly irregular and tachycardic without murmurs, rubs or (units unknown) (unknown) (unknown) (no date) (unknown) (unknown) CK-MB (CK-2) (<2.37) ng/mL (units unknown) (unknown) (unknown) (no date) (unknown) (unknown) CK-MB (CK-2) 1.09 (<2.37) ng/mL (units unknown) (unknown) (unknown) (no date) (unknown) (unknown) CK-MB (CK-2) Rel Index (1.5-5.0) % (units unknown) (unknown) (unknown) (no date) (unknown) (unknown) CK-MB (CK-2) Rel Index 0.8 L (1.5-5.0) % (units unknown) (unknown) (unknown) (no date) (unknown) (unknown) COMPARISON:[facility], CR, XR CHEST 1V, 12/19/2022, 16:16. (units unknown) (unknown) (unknown) (no date) (unknown) (unknown) COVID/RSV/influenza swab is negative. Lactate is still pending we did have to (units unknown) (unknown) (unknown) (no date) (unknown) (unknown) Calcium (8.4-10.2) mg/dL (units unknown) (unknown) (unknown) (no date) (unknown) (unknown) Calcium 8.9 (8.4-10.2) mg/dL (units unknown) (unknown) (unknown) (no date) (unknown) (unknown) Carbon Dioxide (22-32) mmol/L (units unknown) (unknown) (unknown) (no date) (unknown) (unknown) Carbon Dioxide 19 L (22-32) mmol/L (units unknown) (unknown) (unknown) (no date) (unknown) (unknown) Chest x-ray: (units unknown) (unknown) (unknown) (no date) (unknown) (unknown) Chief Complaint: Arrhythmia/Palpitat ions (units unknown) (unknown) (unknown) (no date) (unknown) (unknown) Chloride (98-107) mmol/L (units unknown) (unknown) (unknown) (no date) (unknown) (unknown) Chloride 96 L (98-107) mmol/L (units unknown) (unknown) (unknown) (no date) (unknown) (unknown) Emma Angel MD [Primary Care Provider] (units unknown) (unknown) (unknown) (no date) (unknown) (unknown) Clinical Impression: (units unknown) (unknown) (unknown) (no date) (unknown) (unknown) Complete Blood Count AUTO DIFF Stat (units unknown) (unknown) (unknown) (no date) (unknown) (unknown) Comprehensive Metabolic Panel Stat (units unknown) (unknown) (unknown) (no date) (unknown) (unknown) Course (units unknown) (unknown) (unknown) (no date) (unknown) (unknown) Covid-19 + FLU A/B + RSV - PCR Stat (units unknown) (unknown) (unknown) (no date) (unknown) (unknown) Creatinine (0.66-1.25) mg/dL (units unknown) (unknown) (unknown) (no date) (unknown) (unknown) Creatinine 1.12 (0.66-1.25) mg/dL (units unknown) (unknown) (unknown) (no date) (unknown) (unknown) Critical Care Time (units unknown) (unknown) (unknown) (no date) (unknown) (unknown) Critical Care Time: Yes (units unknown) (unknown) (unknown) (no date) (unknown) (unknown) DILTIAZEM (Diltiazem 125 Mg/125 Ml-D5w) 125 mg in 125 mls @ 5 mls/hr IV TITRATE (units unknown) (unknown) (unknown) (no date) (unknown) (unknown) : 1955 Acct:[id number] (units unknown) (unknown) (unknown) (no date) (unknown) (unknown) : 1955 (units unknown) (unknown) (unknown) (no date) (unknown) (unknown) Date of Service: 01/15/23 (units unknown) (unknown) (unknown) (no date) (unknown) (unknown) Departure (units unknown) (unknown) (unknown) (no date) (unknown) (unknown) Diabetes mellitus (units unknown) (unknown) (unknown) (no date) (unknown) (unknown) Diabetes (units unknown) (unknown) (unknown) (no date) (unknown) (unknown) Dictated by: Reza Sanchez M.D. on 01/15/2023 at 16:03 ? ? (units unknown) (unknown) (unknown) (no date) (unknown) (unknown) Diltiazem HCl (Diltiazem 5 Mg/Ml Sdv) 10 mg IV NOW ONE (units unknown) (unknown) (unknown) (no date) (unknown) (unknown) Discharge Plan (units unknown) (unknown) (unknown) (no date) (unknown) (unknown) Discontinued Medications (units unknown) (unknown) (unknown) (no date) (unknown) (unknown) Documented By: RL (units unknown) (unknown) (unknown) (no date) (unknown) (unknown) ECG Data (units unknown) (unknown) (unknown) (no date) (unknown) (unknown) ED Orders (units unknown) (unknown) (unknown) (no date) (unknown) (unknown) EKG-12 Lead Stat (units unknown) (unknown) (unknown) (no date) (unknown) (unknown) ER Physician: Gayla Nunez D.O. (units unknown) (unknown) (unknown) (no date) (unknown) (unknown) EXTREMITIES: Normal range of motion, no clubbing or edema. Neurovascularly (units unknown) (unknown) (unknown) (no date) (unknown) (unknown) Emergency Report (units unknown) (unknown) (unknown) (no date) (unknown) (unknown) Eos # (Auto) (0-450) /uL (units unknown) (unknown) (unknown) (no date) (unknown) (unknown) Eos # (Auto) 0 (0-450) /uL (units unknown) (unknown) (unknown) (no date) (unknown) (unknown) Eos % (Auto) (2-4) % (units unknown) (unknown) (unknown) (no date) (unknown) (unknown) Eos % (Auto) 0.0 L (2-4) % (units unknown) (unknown) (unknown) (no date) (unknown) (unknown) Estimated GFR > 60 (>60) mL/min (units unknown) (unknown) (unknown) (no date) (unknown) (unknown) Estimated GFR (>60) mL/min (units unknown) (unknown) (unknown) (no date) (unknown) (unknown) Exam Narrative: (units unknown) (unknown) (unknown) (no date) (unknown) (unknown) Exam (units unknown) (unknown) (unknown) (no date) (unknown) (unknown) FINDINGS:? (units unknown) (unknown) (unknown) (no date) (unknown) (unknown) Family History (units unknown) (unknown) (unknown) (no date) (unknown) (unknown) Father Smoker (units unknown) (unknown) (unknown) (no date) (unknown) (unknown) GENERAL: Alert and oriented x three, diaphoretic in moderate distress patient (units unknown) (unknown) (unknown) (no date) (unknown) (unknown) : No CVA tenderness (units unknown) (unknown) (unknown) (no date) (unknown) (unknown) General (units unknown) (unknown) (unknown) (no date) (unknown) (unknown) Globulin (1.7-4.1) g/dL (units unknown) (unknown) (unknown) (no date) (unknown) (unknown) Globulin 3.6 (1.7-4.1) g/dL (units unknown) (unknown) (unknown) (no date) (unknown) (unknown) Glucose (80-110) mg/dL (units unknown) (unknown) (unknown) (no date) (unknown) (unknown) Glucose 252 H (80-110) mg/dL (units unknown) (unknown) (unknown) (no date) (unknown) (unknown) HEENT: Head normocephalic, atraumatic, EOMI, pupils reactive, face symmetric, (units unknown) (unknown) (unknown) (no date) (unknown) (unknown) HPI - Arrhythmia/Palpitat ions (units unknown) (unknown) (unknown) (no date) (unknown) (unknown) HPI narrative: (units unknown) (unknown) (unknown) (no date) (unknown) (unknown) Hct (41-53) % (units unknown) (unknown) (unknown) (no date) (unknown) (unknown) Hct 43.2 (41-53) % (units unknown) (unknown) (unknown) (no date) (unknown) (unknown) Heart attack (units unknown) (unknown) (unknown) (no date) (unknown) (unknown) Hgb (13.5-17.5) g/dL (units unknown) (unknown) (unknown) (no date) (unknown) (unknown) Hgb 14.6 (13.5-17.5) g/dL (units unknown) (unknown) (unknown) (no date) (unknown) (unknown) History of Present Illness (units unknown) (unknown) (unknown) (no date) (unknown) (unknown) History of hernia repair (units unknown) (unknown) (unknown) (no date) (unknown) (unknown) History of neck surgery (units unknown) (unknown) (unknown) (no date) (unknown) (unknown) Home Medications (units unknown) (unknown) (unknown) (no date) (unknown) (unknown) Hyperlipidemia (units unknown) (unknown) (unknown) (no date) (unknown) (unknown) Hypertension (units unknown) (unknown) (unknown) (no date) (unknown) (unknown) IMPRESSION:? Mild pulmonary vascular congestion.? No focal infiltrate, pleural (units unknown) (unknown) (unknown) (no date) (unknown) (unknown) INDICATIONS:? chest pain (units unknown) (unknown) (unknown) (no date) (unknown) (unknown) INR (0.9-1.3) (units unknown) (unknown) (unknown) (no date) (unknown) (unknown) INR 1.7 H (0.9-1.3) (units unknown) (unknown) (unknown) (no date) (unknown) (unknown) Imaging Data (units unknown) (unknown) (unknown) (no date) (unknown) (unknown) Influenza A (RT-PCR) (NEGATIVE) (units unknown) (unknown) (unknown) (no date) (unknown) (unknown) Influenza A (RT-PCR) Flu a negative (NEGATIVE) (units unknown) (unknown) (unknown) (no date) (unknown) (unknown) Influenza B (RT-PCR) (NEGATIVE) (units unknown) (unknown) (unknown) (no date) (unknown) (unknown) Influenza B (RT-PCR) Flu b negative (NEGATIVE) (units unknown) (unknown) (unknown) (no date) (unknown) (unknown) Initial Vital Signs (units unknown) (unknown) (unknown) (no date) (unknown) (unknown) Initial Vital Signs: (units unknown) (unknown) (unknown) (no date) (unknown) (unknown) Interpretation: (units unknown) (unknown) (unknown) (no date) (unknown) (unknown) [address] [address] (units unknown) (unknown) (unknown) (no date) (unknown) (unknown) [facility] (units unknown) (unknown) (unknown) (no date) (unknown) (unknown) Lab Data (units unknown) (unknown) (unknown) (no date) (unknown) (unknown) Lab Results (units unknown) (unknown) (unknown) (no date) (unknown) (unknown) Labs: (units unknown) (unknown) (unknown) (no date) (unknown) (unknown) Lactate (Lactic Acid) Stat (units unknown) (unknown) (unknown) (no date) (unknown) (unknown) Last Admin: 01/15/23 15:40 Dose: 10 mg (units unknown) (unknown) (unknown) (no date) (unknown) (unknown) Last Admin: 01/15/23 15:41 Dose: 10 mg (units unknown) (unknown) (unknown) (no date) (unknown) (unknown) Last Admin: 01/15/23 16:10 Dose: 975 mg (units unknown) (unknown) (unknown) (no date) (unknown) (unknown) Last Infusion: 01/15/23 16:51 Dose: 0 mls/hr (units unknown) (unknown) (unknown) (no date) (unknown) (unknown) Last Titration: 01/15/23 16:24 Dose: 10 mg/hr, 10 mls/hr (units unknown) (unknown) (unknown) (no date) (unknown) (unknown) Limitations: no limitations (units unknown) (unknown) (unknown) (no date) (unknown) (unknown) Lipase (23-300) U/L (units unknown) (unknown) (unknown) (no date) (unknown) (unknown) Lipase 367 H (23-300) U/L (units unknown) (unknown) (unknown) (no date) (unknown) (unknown) Lipase Stat (units unknown) (unknown) (unknown) (no date) (unknown) (unknown) Loc: ED (units unknown) (unknown) (unknown) (no date) (unknown) (unknown) Lungs and pleura:? Mild pulmonary vascular congestion is seen.? No definite (units unknown) (unknown) (unknown) (no date) (unknown) (unknown) Lymph # (Auto) (6396-8040) /uL (units unknown) (unknown) (unknown) (no date) (unknown) (unknown) Lymph # (Auto) 1400 (2387-4396) /uL (units unknown) (unknown) (unknown) (no date) (unknown) (unknown) Lymph % (Auto) (25-40) % (units unknown) (unknown) (unknown) (no date) (unknown) (unknown) Lymph % (Auto) 9.0 L (25-40) % (units unknown) (unknown) (unknown) (no date) (unknown) (unknown) MCH (26-34) PG (units unknown) (unknown) (unknown) (no date) (unknown) (unknown) MCH 29.3 (26-34) PG (units unknown) (unknown) (unknown) (no date) (unknown) (unknown) MCHC (30-36) % (units unknown) (unknown) (unknown) (no date) (unknown) (unknown) MCHC 33.8 (30-36) % (units unknown) (unknown) (unknown) (no date) (unknown) (unknown) MCV (80-100) fL (units unknown) (unknown) (unknown) (no date) (unknown) (unknown) MCV 86.5 (80-100) fL (units unknown) (unknown) (unknown) (no date) (unknown) (unknown) MDM - Arrhythmia/Palpitat ions (units unknown) (unknown) (unknown) (no date) (unknown) (unknown) MDM Narrative (units unknown) (unknown) (unknown) (no date) (unknown) (unknown) MR#: [id number] (units unknown) (unknown) (unknown) (no date) (unknown) (unknown) Magnesium (1.6-2.3) mg/dL (units unknown) (unknown) (unknown) (no date) (unknown) (unknown) Magnesium 1.2 L (1.6-2.3) mg/dL (units unknown) (unknown) (unknown) (no date) (unknown) (unknown) Magnesium Stat (units unknown) (unknown) (unknown) (no date) (unknown) (unknown) [facility] who accepts for admission for AFib RVR with suspected possible sepsis (units unknown) (unknown) (unknown) (no date) (unknown) (unknown) Mediastinum:? Mediastinal contours appear normal.? Heart size is enlarged.? (units unknown) (unknown) (unknown) (no date) (unknown) (unknown) Medical History (Updated 01/15/23 @ 17:16 by Gayla Nunez DO) (units unknown) (unknown) (unknown) (no date) (unknown) (unknown) Medical decision making narrative: (units unknown) (unknown) (unknown) (no date) (unknown) (unknown) Medication Instructions Recorded Confirmed (units unknown) (unknown) (unknown) (no date) (unknown) (unknown) Medication Instructions Recorded (units unknown) (unknown) (unknown) (no date) (unknown) (unknown) Mode of arrival: Family Vehicle (units unknown) (unknown) (unknown) (no date) (unknown) (unknown) [place] # (Auto) (0-900) /uL (units unknown) (unknown) (unknown) (no date) (unknown) (unknown) [place] # (Auto) 1500 H (0-900) /uL (units unknown) (unknown) (unknown) (no date) (unknown) (unknown) [place] % (Auto) (3-14) % (units unknown) (unknown) (unknown) (no date) (unknown) (unknown) [place] % (Auto) 9.2 (3-14) % (units unknown) (unknown) (unknown) (no date) (unknown) (unknown) Mother No significant medical problems (units unknown) (unknown) (unknown) (no date) (unknown) (unknown) NECK: Supple, full range of motion (units unknown) (unknown) (unknown) (no date) (unknown) (unknown) NEUROLOGICAL: Cranial nerves II through XII grossly intact. Moving all (units unknown) (unknown) (unknown) (no date) (unknown) (unknown) NT-Pro-B Natriuret Pep (<125) pg/mL (units unknown) (unknown) (unknown) (no date) (unknown) (unknown) NT-Pro-B Natriuret Pep 2810 H (<125) pg/mL (units unknown) (unknown) (unknown) (no date) (unknown) (unknown) Narrative (units unknown) (unknown) (unknown) (no date) (unknown) (unknown) Neuropathy of both feet (units unknown) (unknown) (unknown) (no date) (unknown) (unknown) Neut # (Auto) (8153-5400) /uL (units unknown) (unknown) (unknown) (no date) (unknown) (unknown) Neut # (Auto) 02677 H (6566-6955) /uL (units unknown) (unknown) (unknown) (no date) (unknown) (unknown) Neut % (Auto) (50-75) % (units unknown) (unknown) (unknown) (no date) (unknown) (unknown) Neut % (Auto) 81.5 H (50-75) % (units unknown) (unknown) (unknown) (no date) (unknown) (unknown) No Action (units unknown) (unknown) (unknown) (no date) (unknown) (unknown) Ondansetron HCl (Ondansetron 4 Mg/2 Ml Inj) 4 mg IV Q6HR PRN (units unknown) (unknown) (unknown) (no date) (unknown) (unknown) Ordered: (units unknown) (unknown) (unknown) (no date) (unknown) (unknown) Ordering Provider: Gayla Nunez D.O. (units unknown) (unknown) (unknown) (no date) (unknown) (unknown) Orders (units unknown) (unknown) (unknown) (no date) (unknown) (unknown) Oxygen Delivery Method Room Air (units unknown) (unknown) (unknown) (no date) (unknown) (unknown) Oxygen Delivery Method (units unknown) (unknown) (unknown) (no date) (unknown) (unknown) PRN Reason: Nausea And Vomiting (units unknown) (unknown) (unknown) (no date) (unknown) (unknown) PROCEDURE:? XR CHEST 1V (units unknown) (unknown) (unknown) (no date) (unknown) (unknown) PT (10.1-12.7) SECONDS (units unknown) (unknown) (unknown) (no date) (unknown) (unknown) PT 19.2 H (10.1-12.7) SECONDS (units unknown) (unknown) (unknown) (no date) (unknown) (unknown) PTT Partial Thromboplastin Chuckie Stat (units unknown) (unknown) (unknown) (no date) (unknown) (unknown) Patient Disposition: Admitted As Inpatient (units unknown) (unknown) (unknown) (no date) (unknown) (unknown) Patient History (units unknown) (unknown) (unknown) (no date) (unknown) (unknown) Patient denies active tobacco, alcohol or illicit drug use. He is accompanied (units unknown) (unknown) (unknown) (no date) (unknown) (unknown) Patient: Arvind Brock MR#: [id number] (units unknown) (unknown) (unknown) (no date) (unknown) (unknown) Patient: Arvind Brock (units unknown) (unknown) (unknown) (no date) (unknown) (unknown) Plt Count (150-400) X103/uL (units unknown) (unknown) (unknown) (no date) (unknown) (unknown) Plt Count 162 (150-400) X103/uL (units unknown) (unknown) (unknown) (no date) (unknown) (unknown) Potassium (3.4-5.1) mmol/L (units unknown) (unknown) (unknown) (no date) (unknown) (unknown) Potassium 4.5 (3.4-5.1) mmol/L (units unknown) (unknown) (unknown) (no date) (unknown) (unknown) Prescriptions: (units unknown) (unknown) (unknown) (no date) (unknown) (unknown) Previous Rx's (units unknown) (unknown) (unknown) (no date) (unknown) (unknown) Prior ECG tracings: available for review (units unknown) (unknown) (unknown) (no date) (unknown) (unknown) Procalcitonin (<0.5) ng/mL (units unknown) (unknown) (unknown) (no date) (unknown) (unknown) Procalcitonin 0.50 (<0.5) ng/mL (units unknown) (unknown) (unknown) (no date) (unknown) (unknown) Procalcitonin Stat (units unknown) (unknown) (unknown) (no date) (unknown) (unknown) Procedure: XR chest 1V (units unknown) (unknown) (unknown) (no date) (unknown) (unknown) Prothrombin Time INR Stat (units unknown) (unknown) (unknown) (no date) (unknown) (unknown) Pulse Oximetry 93 94 (units unknown) (unknown) (unknown) (no date) (unknown) (unknown) Pulse Oximetry 93 (units unknown) (unknown) (unknown) (no date) (unknown) (unknown) Pulse Oximetry 94 95 (units unknown) (unknown) (unknown) (no date) (unknown) (unknown) Pulse Oximetry 94 (units unknown) (unknown) (unknown) (no date) (unknown) (unknown) Pulse Oximetry 95 01/15/23 15:26 (units unknown) (unknown) (unknown) (no date) (unknown) (unknown) Pulse Oximetry 95 96 (units unknown) (unknown) (unknown) (no date) (unknown) (unknown) Pulse Oximetry 95 (units unknown) (unknown) (unknown) (no date) (unknown) (unknown) Pulse Oximetry 96 (units unknown) (unknown) (unknown) (no date) (unknown) (unknown) Pulse Oximetry 99 95 93 (units unknown) (unknown) (unknown) (no date) (unknown) (unknown) Pulse Rate 106 H 110 H (units unknown) (unknown) (unknown) (no date) (unknown) (unknown) Pulse Rate 106 H (units unknown) (unknown) (unknown) (no date) (unknown) (unknown) Pulse Rate 108 H 105 H (units unknown) (unknown) (unknown) (no date) (unknown) (unknown) Pulse Rate 108 H (units unknown) (unknown) (unknown) (no date) (unknown) (unknown) Pulse Rate 110 H 109 H (units unknown) (unknown) (unknown) (no date) (unknown) (unknown) Pulse Rate 112 H (units unknown) (unknown) (unknown) (no date) (unknown) (unknown) Pulse Rate 116 H (units unknown) (unknown) (unknown) (no date) (unknown) (unknown) Pulse Rate 123 H 118 H (units unknown) (unknown) (unknown) (no date) (unknown) (unknown) Pulse Rate 135 H (units unknown) (unknown) (unknown) (no date) (unknown) (unknown) Pulse Rate 138 H 126 H (units unknown) (unknown) (unknown) (no date) (unknown) (unknown) Pulse Rate 172 H 01/15/23 15:26 (units unknown) (unknown) (unknown) (no date) (unknown) (unknown) Pulse Rate 209 H 172 H 172 H (units unknown) (unknown) (unknown) (no date) (unknown) (unknown) RBC (4.5-5.9) X106/uL (units unknown) (unknown) (unknown) (no date) (unknown) (unknown) RBC 5.00 (4.5-5.9) X106/uL (units unknown) (unknown) (unknown) (no date) (unknown) (unknown) RDW (11.6-14.8) % (units unknown) (unknown) (unknown) (no date) (unknown) (unknown) RDW 15.3 H (11.6-14.8) % (units unknown) (unknown) (unknown) (no date) (unknown) (unknown) RESPIRATORY: Breath sounds equal bilaterally, no wheezes rales or rhonchi. No (units unknown) (unknown) (unknown) (no date) (unknown) (unknown) ROS Unobtainable: All systems reviewed + are unremarkable except as noted in HPI (units unknown) (unknown) (unknown) (no date) (unknown) (unknown) RSV (PCR) (Negative) (units unknown) (unknown) (unknown) (no date) (unknown) (unknown) RSV (PCR) Negative (Negative) (units unknown) (unknown) (unknown) (no date) (unknown) (unknown) Radiologist's Impresson: (units unknown) (unknown) (unknown) (no date) (unknown) (unknown) Referrals: (units unknown) (unknown) (unknown) (no date) (unknown) (unknown) Related Data (units unknown) (unknown) (unknown) (no date) (unknown) (unknown) Respiratory Rate 30 H 51 H 53 H (units unknown) (unknown) (unknown) (no date) (unknown) (unknown) Respiratory Rate 34 H (units unknown) (unknown) (unknown) (no date) (unknown) (unknown) Respiratory Rate 37 H 39 H (units unknown) (unknown) (unknown) (no date) (unknown) (unknown) Respiratory Rate 37 H (units unknown) (unknown) (unknown) (no date) (unknown) (unknown) Respiratory Rate 38 H 37 H (units unknown) (unknown) (unknown) (no date) (unknown) (unknown) Respiratory Rate 38 H (units unknown) (unknown) (unknown) (no date) (unknown) (unknown) Respiratory Rate 39 H (units unknown) (unknown) (unknown) (no date) (unknown) (unknown) Respiratory Rate 40 H 39 H (units unknown) (unknown) (unknown) (no date) (unknown) (unknown) Respiratory Rate 43 H 44 H (units unknown) (unknown) (unknown) (no date) (unknown) (unknown) Respiratory Rate 47 H (units unknown) (unknown) (unknown) (no date) (unknown) (unknown) Respiratory Rate 51 H 01/15/23 15:26 (units unknown) (unknown) (unknown) (no date) (unknown) (unknown) Respiratory Rate 51 H (units unknown) (unknown) (unknown) (no date) (unknown) (unknown) Review of Systems (units unknown) (unknown) (unknown) (no date) (unknown) (unknown) SARS-CoV-2 (PCR) (Negative) (units unknown) (unknown) (unknown) (no date) (unknown) (unknown) SARS-CoV-2 (PCR) Negative (Negative) (units unknown) (unknown) (unknown) (no date) (unknown) (unknown) DEIDRA; Protocol (units unknown) (unknown) (unknown) (no date) (unknown) (unknown) SKIN: Warm, diaphoretic, no petechiae, no rashes or lesions. (units unknown) (unknown) (unknown) (no date) (unknown) (unknown) Signed By: (units unknown) (unknown) (unknown) (no date) (unknown) (unknown) Signed (units unknown) (unknown) (unknown) (no date) (unknown) (unknown) Smoking Status: Never smoker (units unknown) (unknown) (unknown) (no date) (unknown) (unknown) Social History (units unknown) (unknown) (unknown) (no date) (unknown) (unknown) Sodium (137-145) mmol/L (units unknown) (unknown) (unknown) (no date) (unknown) (unknown) Sodium 128 L (137-145) mmol/L (units unknown) (unknown) (unknown) (no date) (unknown) (unknown) Sodium Chloride (Normal Saline 0.9%) 1,000 mls @ 1,000 mls/hr IV BOLUS ONE (units unknown) (unknown) (unknown) (no date) (unknown) (unknown) Source: patient, family, RN notes reviewed and old records reviewed (units unknown) (unknown) (unknown) (no date) (unknown) (unknown) Stated Complaint: vomiting/shaking/fe trell (units unknown) (unknown) (unknown) (no date) (unknown) (unknown) Stop: 01/15/23 15:28 (units unknown) (unknown) (unknown) (no date) (unknown) (unknown) Stop: 01/15/23 15:38 (units unknown) (unknown) (unknown) (no date) (unknown) (unknown) Stop: 01/15/23 15:59 (units unknown) (unknown) (unknown) (no date) (unknown) (unknown) Stop: 01/15/23 16:29 (units unknown) (unknown) (unknown) (no date) (unknown) (unknown) Substance Use Type: does not use (units unknown) (unknown) (unknown) (no date) (unknown) (unknown) Surgical History (units unknown) (unknown) (unknown) (no date) (unknown) (unknown) Surgical changes and devices:? None.? (units unknown) (unknown) (unknown) (no date) (unknown) (unknown) TECHNIQUE:? One view of the chest was acquired.? (units unknown) (unknown) (unknown) (no date) (unknown) (unknown) Temperature 101 F H (units unknown) (unknown) (unknown) (no date) (unknown) (unknown) Temperature 101.1 F H (units unknown) (unknown) (unknown) (no date) (unknown) (unknown) Temperature (units unknown) (unknown) (unknown) (no date) (unknown) (unknown) The high probability of a clinically significant, sudden or life threatening (units unknown) (unknown) (unknown) (no date) (unknown) (unknown) This is a 67-year-old male who presents with AFib RVR but is also febrile and (units unknown) (unknown) (unknown) (no date) (unknown) (unknown) This is a 67-year-old male with known history of atrial fibrillation who is (units unknown) (unknown) (unknown) (no date) (unknown) (unknown) Time Seen by Provider: 01/15/23 15:29 (units unknown) (unknown) (unknown) (no date) (unknown) (unknown) Total Bilirubin (0.2-1.3) mg/dL (units unknown) (unknown) (unknown) (no date) (unknown) (unknown) Total Bilirubin 1.2 (0.2-1.3) mg/dL (units unknown) (unknown) (unknown) (no date) (unknown) (unknown) Total Creatine Kinase (55-170) U/L (units unknown) (unknown) (unknown) (no date) (unknown) (unknown) Total Creatine Kinase 133 (55-170) U/L (units unknown) (unknown) (unknown) (no date) (unknown) (unknown) Total Protein (6.3-8.2) g/dL (units unknown) (unknown) (unknown) (no date) (unknown) (unknown) Total Protein 7.7 (6.3-8.2) g/dL (units unknown) (unknown) (unknown) (no date) (unknown) (unknown) Troponin + CK Cardiac Panel Stat (units unknown) (unknown) (unknown) (no date) (unknown) (unknown) Troponin I (0.01-0.034) ng/mL (units unknown) (unknown) (unknown) (no date) (unknown) (unknown) Troponin I 0.016 (0.01-0.034) ng/mL (units unknown) (unknown) (unknown) (no date) (unknown) (unknown) U-100 Insulin) (units unknown) (unknown) (unknown) (no date) (unknown) (unknown) UA Complete [Urinalysis and Microscopic] Stat (units unknown) (unknown) (unknown) (no date) (unknown) (unknown) Vital Signs - 8 hr (units unknown) (unknown) (unknown) (no date) (unknown) (unknown) Vital Signs (units unknown) (unknown) (unknown) (no date) (unknown) (unknown) Vital signs: (units unknown) (unknown) (unknown) (no date) (unknown) (unknown) WBC (4.5-11.0) X103/uL (units unknown) (unknown) (unknown) (no date) (unknown) (unknown) WBC 15.9 H (4.5-11.0) X103/uL (units unknown) (unknown) (unknown) (no date) (unknown) (unknown) XR chest 1V Stat (units unknown) (unknown) (unknown) (no date) (unknown) (unknown) XRay Report (units unknown) (unknown) (unknown) (no date) (unknown) (unknown) Xarelto 20 mg Tablet (units unknown) (unknown) (unknown) (no date) (unknown) (unknown) [Embedded Image Not Available] (units unknown) (unknown) (unknown) (no date) (unknown) (unknown) [x] Data Review and interpretation (units unknown) (unknown) (unknown) (no date) (unknown) (unknown) [x] Documentation (units unknown) (unknown) (unknown) (no date) (unknown) (unknown) [x] Medication orders and management (units unknown) (unknown) (unknown) (no date) (unknown) (unknown) [x] Patient assessment and monitoring of vital signs (units unknown) (unknown) (unknown) (no date) (unknown) (unknown) accessory muscle use. Mild tachypnea. (units unknown) (unknown) (unknown) (no date) (unknown) (unknown) additional 10 mg dose and plan for drip. Patient was also given fluids size (units unknown) (unknown) (unknown) (no date) (unknown) (unknown) alcohol intake frequency: other (units unknown) (unknown) (unknown) (no date) (unknown) (unknown) alcohol intake: never (units unknown) (unknown) (unknown) (no date) (unknown) (unknown) and below (units unknown) (unknown) (unknown) (no date) (unknown) (unknown) any new swelling in his extremities. His states he has not been telling (units unknown) (unknown) (unknown) (no date) (unknown) (unknown) appear (units unknown) (unknown) (unknown) (no date) (unknown) (unknown) attention, intervention and personal management. The aggregate critical care (units unknown) (unknown) (unknown) (no date) (unknown) (unknown) but no clear source of infection patient does meet SIRS criteria. Patient was (units unknown) (unknown) (unknown) (no date) (unknown) (unknown) by his who brought him today who states he refused transport via EMS and (units unknown) (unknown) (unknown) (no date) (unknown) (unknown) call lab and they are currently running it. Chest x-ray does not show clear (units unknown) (unknown) (unknown) (no date) (unknown) (unknown) can anticoagulated for cardioversion. Sodium is 128 chloride 96 with a CO2 of (units unknown) (unknown) (unknown) (no date) (unknown) (unknown) catheterization or stress test no ablation. He denies any prior surgeries. He (units unknown) (unknown) (unknown) (no date) (unknown) (unknown) currently but has been only 3 weeks since he was discharged so he is not fully (units unknown) (unknown) (unknown) (no date) (unknown) (unknown) denies chest pain or shortness of breath he does state he is had some fever, he (units unknown) (unknown) (unknown) (no date) (unknown) (unknown) denies diarrhea constipation he denies dysuria urgency or frequency. He denies (units unknown) (unknown) (unknown) (no date) (unknown) (unknown) department. Patient [facility]. He does (units unknown) (unknown) (unknown) (no date) (unknown) (unknown) deterioration of the [cardiac, resp] system(s) required my full and direct (units unknown) (unknown) (unknown) (no date) (unknown) (unknown) does answer questions appropriately but appears to feel unwell (units unknown) (unknown) (unknown) (no date) (unknown) (unknown) does have a leukocytosis he is febrile was given Tylenol for his fever he has a (units unknown) (unknown) (unknown) (no date) (unknown) (unknown) does have some depression in 1 and aVL. Patient has prior from 12/18/2022 with (units unknown) (unknown) (unknown) (no date) (unknown) (unknown) dyslipidemia. According to patient's she is unsure if he is taking his (units unknown) (unknown) (unknown) (no date) (unknown) (unknown) effusion (units unknown) (unknown) (unknown) (no date) (unknown) (unknown) extremities (units unknown) (unknown) (unknown) (no date) (unknown) (unknown) fevers generally feeling unwell he states his heart rate has been fast. He (units unknown) (unknown) (unknown) (no date) (unknown) (unknown) focal (units unknown) (unknown) (unknown) (no date) (unknown) (unknown) for fluid overload, patient had an EF on his last admission a month ago that was (units unknown) (unknown) (unknown) (no date) (unknown) (unknown) gallops. No JVD. Trace edema bilaterally. (units unknown) (unknown) (unknown) (no date) (unknown) (unknown) given a L bolus but discussed I did not give a 30 cc/kilos as he is higher risk (units unknown) (unknown) (unknown) (no date) (unknown) (unknown) glucose is 250 to come Mag slightly low at 1.2 with a negative troponin and BNP (units unknown) (unknown) (unknown) (no date) (unknown) (unknown) had several days of fever. Suspect his AFib RVR is a response to fever and (units unknown) (unknown) (unknown) (no date) (unknown) (unknown) her about any symptoms but she has noted he is had fevers for the last 5 days (units unknown) (unknown) (unknown) (no date) (unknown) (unknown) his drip was bumped up from 5 mics for his diltiazem drip. Heart rate has been (units unknown) (unknown) (unknown) (no date) (unknown) (unknown) household members: spouse (units unknown) (unknown) (unknown) (no date) (unknown) (unknown) improvement in rate down to 120s with a systolic pressure of 170s, was given (units unknown) (unknown) (unknown) (no date) (unknown) (unknown) infection. Patient denies other symptoms currently he is diaphoretic but has a (units unknown) (unknown) (unknown) (no date) (unknown) (unknown) infiltrate.? No pleural effusions or pneumothorax.? (units unknown) (unknown) (unknown) (no date) (unknown) (unknown) insulin glargine 100 unit/mL 12 unit SUBCUT BEDTIME 05/11/20 01/15/23 (units unknown) (unknown) (unknown) (no date) (unknown) (unknown) insulin glargine [Lantus U-100 Insulin] 100 unit/mL Solution (units unknown) (unknown) (unknown) (no date) (unknown) (unknown) intact (units unknown) (unknown) (unknown) (no date) (unknown) (unknown) leftward shift, INR is elevated 1.7 so it likely is taking his anticoagulation (units unknown) (unknown) (unknown) (no date) (unknown) (unknown) lisinopril 5 mg tablet 5 mg PO DAILY 90 days #90 tabs 12/21/22 (units unknown) (unknown) (unknown) (no date) (unknown) (unknown) lisinopril 5 mg tablet (units unknown) (unknown) (unknown) (no date) (unknown) (unknown) medications regularly. He was admitted for AFib RVR in November and was not (units unknown) (unknown) (unknown) (no date) (unknown) (unknown) metformin 500 mg Tablet (units unknown) (unknown) (unknown) (no date) (unknown) (unknown) metformin 500 mg tablet 500 mg PO BID 05/11/20 01/15/23 (units unknown) (unknown) (unknown) (no date) (unknown) (unknown) metoprolol succinate 50 mg 50 mg PO BID 90 days #180 tabs 12/21/22 (units unknown) (unknown) (unknown) (no date) (unknown) (unknown) metoprolol succinate 50 mg tablet extended release 24 hr (units unknown) (unknown) (unknown) (no date) (unknown) (unknown) moist mucous membranes (units unknown) (unknown) (unknown) (no date) (unknown) (unknown) more consistently 115th 290s, his blood pressure has tolerated this well. He (units unknown) (unknown) (unknown) (no date) (unknown) (unknown) not follow with a passenger service representative regularly. (units unknown) (unknown) (unknown) (no date) (unknown) (unknown) occupational status: employed (units unknown) (unknown) (unknown) (no date) (unknown) (unknown) of 2800 lipase 367 pro callus 0.5. Patient has not given a urine sample yet, (units unknown) (unknown) (unknown) (no date) (unknown) (unknown) on his way here to the hospital. He denies abdominal back or flank pain. He (units unknown) (unknown) (unknown) (no date) (unknown) (unknown) or pneumothorax. (units unknown) (unknown) (unknown) (no date) (unknown) (unknown) piperacillin [From Zosyn] Allergy Severe Uticaria Verified 05/11/20 22:50 (units unknown) (unknown) (unknown) (no date) (unknown) (unknown) procedures but includes the following: (units unknown) (unknown) (unknown) (no date) (unknown) (unknown) quadrants. No guarding or rebound, rigidity, no mass (units unknown) (unknown) (unknown) (no date) (unknown) (unknown) rivaroxaban 20 mg tablet (Xarelto) 20 mg PO QPM 05/11/20 01/15/23 (units unknown) (unknown) (unknown) (no date) (unknown) (unknown) she is been arguing has him for several days to get him to come to the emergency (units unknown) (unknown) (unknown) (no date) (unknown) (unknown) similar appearing ST segments that time his rate was 100 but was in AFib. (units unknown) (unknown) (unknown) (no date) (unknown) (unknown) since Sunday. Patient denies any prior cardiac interventions no heart (units unknown) (unknown) (unknown) (no date) (unknown) (unknown) source of infection exam does not give me a clear source. I spoke with (units unknown) (unknown) (unknown) (no date) (unknown) (unknown) states he is allergic to a penicillin type medication appears to be Zosyn. (units unknown) (unknown) (unknown) (no date) (unknown) (unknown) states he is felt unwell in general. No syncope. He is had nausea and vomiting (units unknown) (unknown) (unknown) (no date) (unknown) (unknown) subcutaneous solution (Lantus (units unknown) (unknown) (unknown) (no date) (unknown) (unknown) supposed to be anticoagulated on Xarelto, diabetes hypertension and (units unknown) (unknown) (unknown) (no date) (unknown) (unknown) suspect sepsis has part of his current problems, patient is currently on 10 mics (units unknown) (unknown) (unknown) (no date) (unknown) (unknown) tablet,extended release 24 hr (units unknown) (unknown) (unknown) (no date) (unknown) (unknown) taking medications regularly at that time. Patient presents with 5 days of (units unknown) (unknown) (unknown) (no date) (unknown) (unknown) tazobactam [From Zosyn] Allergy Severe Uticaria Verified 05/11/20 22:50 (units unknown) (unknown) (unknown) (no date) (unknown) (unknown) temperature of 101? F as well. Was given Tylenol, IV diltiazem with some (units unknown) (unknown) (unknown) (no date) (unknown) (unknown) time was [] minutes. This time is in addition to time spent performing reported (units unknown) (unknown) (unknown) (no date) (unknown) (unknown) unremarkable.? (units unknown) (unknown) Result panel 420 (unknown) (no date) (unknown) (unknown) (no value) (units unknown) (unknown) (unknown) (no date) (unknown) (unknown) [id number] (units unknown) (unknown) (unknown) (no date) (unknown) (unknown) 01/15/23 01/15/23 01/15/23 Range/Units (units unknown) (unknown) (unknown) (no date) (unknown) (unknown) 01/15/23 01/15/23 Range/Units (units unknown) (unknown) (unknown) (no date) (unknown) (unknown) 01/15/23 15:25 (units unknown) (unknown) (unknown) (no date) (unknown) (unknown) 01/15/23 15:26 (units unknown) (unknown) (unknown) (no date) (unknown) (unknown) 01/15/23 15:30 (units unknown) (unknown) (unknown) (no date) (unknown) (unknown) 01/15/23 15:49 (units unknown) (unknown) (unknown) (no date) (unknown) (unknown) 01/15/23 (units unknown) (unknown) (unknown) (no date) (unknown) (unknown) [address] [place] [address] (units unknown) (unknown) (unknown) (no date) (unknown) (unknown) 15:25 15:25 15:25 (units unknown) (unknown) (unknown) (no date) (unknown) (unknown) 15:25 15:49 (units unknown) (unknown) (unknown) (no date) (unknown) (unknown) 15:26 01/15/23 (units unknown) (unknown) (unknown) (no date) (unknown) (unknown) 15:27 01/15/23 (units unknown) (unknown) (unknown) (no date) (unknown) (unknown) 15:27 (units unknown) (unknown) (unknown) (no date) (unknown) (unknown) 15:29 01/15/23 (units unknown) (unknown) (unknown) (no date) (unknown) (unknown) 15:30 01/15/23 (units unknown) (unknown) (unknown) (no date) (unknown) (unknown) 15:30 (units unknown) (unknown) (unknown) (no date) (unknown) (unknown) 15:35 01/15/23 (units unknown) (unknown) (unknown) (no date) (unknown) (unknown) 15:40 (units unknown) (unknown) (unknown) (no date) (unknown) (unknown) 15:45 01/15/23 (units unknown) (unknown) (unknown) (no date) (unknown) (unknown) 15:48 01/15/23 (units unknown) (unknown) (unknown) (no date) (unknown) (unknown) 15:48 (units unknown) (unknown) (unknown) (no date) (unknown) (unknown) 15:50 01/15/23 (units unknown) (unknown) (unknown) (no date) (unknown) (unknown) 15:55 01/15/23 (units unknown) (unknown) (unknown) (no date) (unknown) (unknown) 15:55 (units unknown) (unknown) (unknown) (no date) (unknown) (unknown) 16:00 01/15/23 (units unknown) (unknown) (unknown) (no date) (unknown) (unknown) 16:00 (units unknown) (unknown) (unknown) (no date) (unknown) (unknown) 16:05 01/15/23 (units unknown) (unknown) (unknown) (no date) (unknown) (unknown) 16:10 01/15/23 (units unknown) (unknown) (unknown) (no date) (unknown) (unknown) 16:10 (units unknown) (unknown) (unknown) (no date) (unknown) (unknown) 16:15 01/15/23 (units unknown) (unknown) (unknown) (no date) (unknown) (unknown) 16:15 (units unknown) (unknown) (unknown) (no date) (unknown) (unknown) 16:20 01/15/23 (units unknown) (unknown) (unknown) (no date) (unknown) (unknown) 16:25 01/15/23 (units unknown) (unknown) (unknown) (no date) (unknown) (unknown) 16:25 (units unknown) (unknown) (unknown) (no date) (unknown) (unknown) 16:30 01/15/23 (units unknown) (unknown) (unknown) (no date) (unknown) (unknown) 16:30 (units unknown) (unknown) (unknown) (no date) (unknown) (unknown) 16:35 01/15/23 (units unknown) (unknown) (unknown) (no date) (unknown) (unknown) 16:51 (units unknown) (unknown) (unknown) (no date) (unknown) (unknown) 19 creatinine 1.12 but appears similar to his prior to beginning of the month (units unknown) (unknown) (unknown) (no date) (unknown) (unknown) 35-40%. (units unknown) (unknown) (unknown) (no date) (unknown) (unknown) ? (units unknown) (unknown) (unknown) (no date) (unknown) (unknown) ABDOMEN: Soft, nontender. Nondistended. Normoactive bowel sounds all 4 (units unknown) (unknown) (unknown) (no date) (unknown) (unknown) AFib with RVR rate of 169 QRS 82 QTC 449. No clear acute ST elevation. Patient (units unknown) (unknown) (unknown) (no date) (unknown) (unknown) ALT (<50) IU/L (units unknown) (unknown) (unknown) (no date) (unknown) (unknown) ALT 29 (<50) IU/L (units unknown) (unknown) (unknown) (no date) (unknown) (unknown) APTT (26-36) SECONDS (units unknown) (unknown) (unknown) (no date) (unknown) (unknown) APTT 33 (26-36) SECONDS (units unknown) (unknown) (unknown) (no date) (unknown) (unknown) AST (17-59) IU/L (units unknown) (unknown) (unknown) (no date) (unknown) (unknown) AST 32 (17-59) IU/L (units unknown) (unknown) (unknown) (no date) (unknown) (unknown) Accession Number: [id number] ?? (units unknown) (unknown) (unknown) (no date) (unknown) (unknown) Acct:[id number] (units unknown) (unknown) (unknown) (no date) (unknown) (unknown) Acetaminophen (Acetaminophen 325 Mg Tablet) 975 mg PO NOW ONE (units unknown) (unknown) (unknown) (no date) (unknown) (unknown) Admin: 01/15/23 15:43 Dose: 5 mg/hr, 5 mls/hr (units unknown) (unknown) (unknown) (no date) (unknown) (unknown) Admin: 01/15/23 15:45 Dose: 1,000 mls/hr (units unknown) (unknown) (unknown) (no date) (unknown) (unknown) Admit Date/Time: 01/15/23 17:20 (units unknown) (unknown) (unknown) (no date) (unknown) (unknown) Admit Provider: Graciela Burton (units unknown) (unknown) (unknown) (no date) (unknown) (unknown) Afib (units unknown) (unknown) (unknown) (no date) (unknown) (unknown) Age/Sex: 67 / M (units unknown) (unknown) (unknown) (no date) (unknown) (unknown) Albumin (3.5-5.0) g/dL (units unknown) (unknown) (unknown) (no date) (unknown) (unknown) Albumin 4.1 (3.5-5.0) g/dL (units unknown) (unknown) (unknown) (no date) (unknown) (unknown) Albumin/Globulin Ratio (1.0-2.8) (units unknown) (unknown) (unknown) (no date) (unknown) (unknown) Albumin/Globulin Ratio 1.1 (1.0-2.8) (units unknown) (unknown) (unknown) (no date) (unknown) (unknown) Alkaline Phosphatase (38-126) U/L (units unknown) (unknown) (unknown) (no date) (unknown) (unknown) Alkaline Phosphatase 97 (38-126) U/L (units unknown) (unknown) (unknown) (no date) (unknown) (unknown) Allergies (units unknown) (unknown) (unknown) (no date) (unknown) (unknown) Allergy/AdvReac Type Severity Reaction Status Date / Time (units unknown) (unknown) (unknown) (no date) (unknown) (unknown) ADEOLA [place] [id number] (units unknown) (unknown) (unknown) (no date) (unknown) (unknown) And when I evaluate he definitely has erythema and warmth compared to the (units unknown) (unknown) (unknown) (no date) (unknown) (unknown) Approved by: Reza Sanchez M.D. on 01/15/2023 at 16:03?? (units unknown) (unknown) (unknown) (no date) (unknown) (unknown) Atrial fibrillation with rapid ventricular response, Sepsis, Cellulitis of left (units unknown) (unknown) (unknown) (no date) (unknown) (unknown) Attestation: I personally reviewed and interpreted this ECG as follows: (units unknown) (unknown) (unknown) (no date) (unknown) (unknown) Attestation: (units unknown) (unknown) (unknown) (no date) (unknown) (unknown) BNP [NT-proBNP (BNP-Adult 18+)] Stat (units unknown) (unknown) (unknown) (no date) (unknown) (unknown) BUN (9-20) mg/dL (units unknown) (unknown) (unknown) (no date) (unknown) (unknown) BUN 24 H (9-20) mg/dL (units unknown) (unknown) (unknown) (no date) (unknown) (unknown) BUN/Creatinine Ratio (6-22) (units unknown) (unknown) (unknown) (no date) (unknown) (unknown) BUN/Creatinine Ratio 21.4 (6-22) (units unknown) (unknown) (unknown) (no date) (unknown) (unknown) Baso # (Auto) (0-100) /uL (units unknown) (unknown) (unknown) (no date) (unknown) (unknown) Baso # (Auto) 0 (0-100) /uL (units unknown) (unknown) (unknown) (no date) (unknown) (unknown) Baso % (Auto) (0-2) % (units unknown) (unknown) (unknown) (no date) (unknown) (unknown) Baso % (Auto) 0.3 (0-2) % (units unknown) (unknown) (unknown) (no date) (unknown) (unknown) Blood Culture Stat (units unknown) (unknown) (unknown) (no date) (unknown) (unknown) Blood Pressure 119/66 130/56 L (units unknown) (unknown) (unknown) (no date) (unknown) (unknown) Blood Pressure 120/56 L 126/61 (units unknown) (unknown) (unknown) (no date) (unknown) (unknown) Blood Pressure 122/57 L (units unknown) (unknown) (unknown) (no date) (unknown) (unknown) Blood Pressure 125/63 (units unknown) (unknown) (unknown) (no date) (unknown) (unknown) Blood Pressure 126/58 L (units unknown) (unknown) (unknown) (no date) (unknown) (unknown) Blood Pressure 127/57 L (units unknown) (unknown) (unknown) (no date) (unknown) (unknown) Blood Pressure 143/63 H (units unknown) (unknown) (unknown) (no date) (unknown) (unknown) Blood Pressure 156/60 H 122/58 L (units unknown) (unknown) (unknown) (no date) (unknown) (unknown) Blood Pressure 172/92 H (units unknown) (unknown) (unknown) (no date) (unknown) (unknown) Blood Pressure 183/84 H 140/69 (units unknown) (unknown) (unknown) (no date) (unknown) (unknown) Blood Pressure 193/91 H (units unknown) (unknown) (unknown) (no date) (unknown) (unknown) Bones and chest wall:? No suspicious bony lesions.? Overlying soft tissues (units unknown) (unknown) (unknown) (no date) (unknown) (unknown) CARDIOVASCULAR: Irregularly irregular and tachycardic without murmurs, rubs or (units unknown) (unknown) (unknown) (no date) (unknown) (unknown) CK-MB (CK-2) (<2.37) ng/mL (units unknown) (unknown) (unknown) (no date) (unknown) (unknown) CK-MB (CK-2) 1.09 (<2.37) ng/mL (units unknown) (unknown) (unknown) (no date) (unknown) (unknown) CK-MB (CK-2) Rel Index (1.5-5.0) % (units unknown) (unknown) (unknown) (no date) (unknown) (unknown) CK-MB (CK-2) Rel Index 0.8 L (1.5-5.0) % (units unknown) (unknown) (unknown) (no date) (unknown) (unknown) COMPARISON:[facility], CR, XR CHEST 1V, 12/19/2022, 16:16. (units unknown) (unknown) (unknown) (no date) (unknown) (unknown) COVID/RSV/influenza swab is negative. Lactate is still pending we did have to (units unknown) (unknown) (unknown) (no date) (unknown) (unknown) Calcium (8.4-10.2) mg/dL (units unknown) (unknown) (unknown) (no date) (unknown) (unknown) Calcium 8.9 (8.4-10.2) mg/dL (units unknown) (unknown) (unknown) (no date) (unknown) (unknown) Carbon Dioxide (22-32) mmol/L (units unknown) (unknown) (unknown) (no date) (unknown) (unknown) Carbon Dioxide 19 L (22-32) mmol/L (units unknown) (unknown) (unknown) (no date) (unknown) (unknown) Chest x-ray: (units unknown) (unknown) (unknown) (no date) (unknown) (unknown) Chief Complaint: Arrhythmia/Palpitat ions (units unknown) (unknown) (unknown) (no date) (unknown) (unknown) Chloride (98-107) mmol/L (units unknown) (unknown) (unknown) (no date) (unknown) (unknown) Chloride 96 L (98-107) mmol/L (units unknown) (unknown) (unknown) (no date) (unknown) (unknown) Clinical Impression: (units unknown) (unknown) (unknown) (no date) (unknown) (unknown) Complete Blood Count AUTO DIFF Stat (units unknown) (unknown) (unknown) (no date) (unknown) (unknown) Comprehensive Metabolic Panel Stat (units unknown) (unknown) (unknown) (no date) (unknown) (unknown) Course (units unknown) (unknown) (unknown) (no date) (unknown) (unknown) Covid-19 + FLU A/B + RSV - PCR Stat (units unknown) (unknown) (unknown) (no date) (unknown) (unknown) Creatinine (0.66-1.25) mg/dL (units unknown) (unknown) (unknown) (no date) (unknown) (unknown) Creatinine 1.12 (0.66-1.25) mg/dL (units unknown) (unknown) (unknown) (no date) (unknown) (unknown) Critical Care Time (units unknown) (unknown) (unknown) (no date) (unknown) (unknown) Critical Care Time: Yes (units unknown) (unknown) (unknown) (no date) (unknown) (unknown) DILTIAZEM (Diltiazem 125 Mg/125 Ml-D5w) 125 mg in 125 mls @ 5 mls/hr IV TITRATE (units unknown) (unknown) (unknown) (no date) (unknown) (unknown) : 1955 Acct:[id number] (units unknown) (unknown) (unknown) (no date) (unknown) (unknown) : 1955 (units unknown) (unknown) (unknown) (no date) (unknown) (unknown) Date of Service: 01/15/23 (units unknown) (unknown) (unknown) (no date) (unknown) (unknown) Departure (units unknown) (unknown) (unknown) (no date) (unknown) (unknown) Diabetes mellitus (units unknown) (unknown) (unknown) (no date) (unknown) (unknown) Diabetes (units unknown) (unknown) (unknown) (no date) (unknown) (unknown) Dictated by: Reza Sanchez M.D. on 01/15/2023 at 16:03 ? ? (units unknown) (unknown) (unknown) (no date) (unknown) (unknown) Diltiazem HCl (Diltiazem 5 Mg/Ml Sdv) 10 mg IV NOW ONE (units unknown) (unknown) (unknown) (no date) (unknown) (unknown) Discharge Plan (units unknown) (unknown) (unknown) (no date) (unknown) (unknown) Discontinued Medications (units unknown) (unknown) (unknown) (no date) (unknown) (unknown) Documented By: RL (units unknown) (unknown) (unknown) (no date) (unknown) (unknown) ECG Data (units unknown) (unknown) (unknown) (no date) (unknown) (unknown) ED Orders (units unknown) (unknown) (unknown) (no date) (unknown) (unknown) EKG-12 Lead Stat (units unknown) (unknown) (unknown) (no date) (unknown) (unknown) ER Physician: Gayla Nunez D.O. (units unknown) (unknown) (unknown) (no date) (unknown) (unknown) EXTREMITIES: Normal range of motion, no clubbing or edema. Neurovascularly (units unknown) (unknown) (unknown) (no date) (unknown) (unknown) Emergency Report (units unknown) (unknown) (unknown) (no date) (unknown) (unknown) Eos # (Auto) (0-450) /uL (units unknown) (unknown) (unknown) (no date) (unknown) (unknown) Eos # (Auto) 0 (0-450) /uL (units unknown) (unknown) (unknown) (no date) (unknown) (unknown) Eos % (Auto) (2-4) % (units unknown) (unknown) (unknown) (no date) (unknown) (unknown) Eos % (Auto) 0.0 L (2-4) % (units unknown) (unknown) (unknown) (no date) (unknown) (unknown) Estimated GFR > 60 (>60) mL/min (units unknown) (unknown) (unknown) (no date) (unknown) (unknown) Estimated GFR (>60) mL/min (units unknown) (unknown) (unknown) (no date) (unknown) (unknown) Exam Narrative: (units unknown) (unknown) (unknown) (no date) (unknown) (unknown) Exam (units unknown) (unknown) (unknown) (no date) (unknown) (unknown) FINDINGS:? (units unknown) (unknown) (unknown) (no date) (unknown) (unknown) Family History (units unknown) (unknown) (unknown) (no date) (unknown) (unknown) Father Smoker (units unknown) (unknown) (unknown) (no date) (unknown) (unknown) GENERAL: Alert and oriented x three, diaphoretic in moderate distress patient (units unknown) (unknown) (unknown) (no date) (unknown) (unknown) : No CVA tenderness (units unknown) (unknown) (unknown) (no date) (unknown) (unknown) General (units unknown) (unknown) (unknown) (no date) (unknown) (unknown) Globulin (1.7-4.1) g/dL (units unknown) (unknown) (unknown) (no date) (unknown) (unknown) Globulin 3.6 (1.7-4.1) g/dL (units unknown) (unknown) (unknown) (no date) (unknown) (unknown) Glucose (80-110) mg/dL (units unknown) (unknown) (unknown) (no date) (unknown) (unknown) Glucose 252 H (80-110) mg/dL (units unknown) (unknown) (unknown) (no date) (unknown) (unknown) HEENT: Head normocephalic, atraumatic, EOMI, pupils reactive, face symmetric, (units unknown) (unknown) (unknown) (no date) (unknown) (unknown) HPI - Arrhythmia/Palpitat ions (units unknown) (unknown) (unknown) (no date) (unknown) (unknown) HPI narrative: (units unknown) (unknown) (unknown) (no date) (unknown) (unknown) Hct (41-53) % (units unknown) (unknown) (unknown) (no date) (unknown) (unknown) Hct 43.2 (41-53) % (units unknown) (unknown) (unknown) (no date) (unknown) (unknown) Heart attack (units unknown) (unknown) (unknown) (no date) (unknown) (unknown) Hgb (13.5-17.5) g/dL (units unknown) (unknown) (unknown) (no date) (unknown) (unknown) Hgb 14.6 (13.5-17.5) g/dL (units unknown) (unknown) (unknown) (no date) (unknown) (unknown) History of Present Illness (units unknown) (unknown) (unknown) (no date) (unknown) (unknown) History of hernia repair (units unknown) (unknown) (unknown) (no date) (unknown) (unknown) History of neck surgery (units unknown) (unknown) (unknown) (no date) (unknown) (unknown) Home Medications (units unknown) (unknown) (unknown) (no date) (unknown) (unknown) Hyperlipidemia (units unknown) (unknown) (unknown) (no date) (unknown) (unknown) Hypertension (units unknown) (unknown) (unknown) (no date) (unknown) (unknown) IMPRESSION:? Mild pulmonary vascular congestion.? No focal infiltrate, pleural (units unknown) (unknown) (unknown) (no date) (unknown) (unknown) INDICATIONS:? chest pain (units unknown) (unknown) (unknown) (no date) (unknown) (unknown) INR (0.9-1.3) (units unknown) (unknown) (unknown) (no date) (unknown) (unknown) INR 1.7 H (0.9-1.3) (units unknown) (unknown) (unknown) (no date) (unknown) (unknown) Imaging Data (units unknown) (unknown) (unknown) (no date) (unknown) (unknown) Influenza A (RT-PCR) (NEGATIVE) (units unknown) (unknown) (unknown) (no date) (unknown) (unknown) Influenza A (RT-PCR) Flu a negative (NEGATIVE) (units unknown) (unknown) (unknown) (no date) (unknown) (unknown) Influenza B (RT-PCR) (NEGATIVE) (units unknown) (unknown) (unknown) (no date) (unknown) (unknown) Influenza B (RT-PCR) Flu b negative (NEGATIVE) (units unknown) (unknown) (unknown) (no date) (unknown) (unknown) Initial Vital Signs (units unknown) (unknown) (unknown) (no date) (unknown) (unknown) Initial Vital Signs: (units unknown) (unknown) (unknown) (no date) (unknown) (unknown) Interpretation: (units unknown) (unknown) (unknown) (no date) (unknown) (unknown) [address] [address] (units unknown) (unknown) (unknown) (no date) (unknown) (unknown) [facility] (units unknown) (unknown) (unknown) (no date) (unknown) (unknown) Lab Data (units unknown) (unknown) (unknown) (no date) (unknown) (unknown) Lab Results (units unknown) (unknown) (unknown) (no date) (unknown) (unknown) Labs: (units unknown) (unknown) (unknown) (no date) (unknown) (unknown) Lactate (Lactic Acid) Stat (units unknown) (unknown) (unknown) (no date) (unknown) (unknown) Last Admin: 01/15/23 15:40 Dose: 10 mg (units unknown) (unknown) (unknown) (no date) (unknown) (unknown) Last Admin: 01/15/23 15:41 Dose: 10 mg (units unknown) (unknown) (unknown) (no date) (unknown) (unknown) Last Admin: 01/15/23 16:10 Dose: 975 mg (units unknown) (unknown) (unknown) (no date) (unknown) (unknown) Last Infusion: 01/15/23 16:51 Dose: 0 mls/hr (units unknown) (unknown) (unknown) (no date) (unknown) (unknown) Last Titration: 01/15/23 16:24 Dose: 10 mg/hr, 10 mls/hr (units unknown) (unknown) (unknown) (no date) (unknown) (unknown) Limitations: no limitations (units unknown) (unknown) (unknown) (no date) (unknown) (unknown) Lipase (23-300) U/L (units unknown) (unknown) (unknown) (no date) (unknown) (unknown) Lipase 367 H (23-300) U/L (units unknown) (unknown) (unknown) (no date) (unknown) (unknown) Lipase Stat (units unknown) (unknown) (unknown) (no date) (unknown) (unknown) Loc: ED (units unknown) (unknown) (unknown) (no date) (unknown) (unknown) Lungs and pleura:? Mild pulmonary vascular congestion is seen.? No definite (units unknown) (unknown) (unknown) (no date) (unknown) (unknown) Lymph # (Auto) (2579-9072) /uL (units unknown) (unknown) (unknown) (no date) (unknown) (unknown) Lymph # (Auto) 1400 (4097-5896) /uL (units unknown) (unknown) (unknown) (no date) (unknown) (unknown) Lymph % (Auto) (25-40) % (units unknown) (unknown) (unknown) (no date) (unknown) (unknown) Lymph % (Auto) 9.0 L (25-40) % (units unknown) (unknown) (unknown) (no date) (unknown) (unknown) MCH (26-34) PG (units unknown) (unknown) (unknown) (no date) (unknown) (unknown) MCH 29.3 (26-34) PG (units unknown) (unknown) (unknown) (no date) (unknown) (unknown) MCHC (30-36) % (units unknown) (unknown) (unknown) (no date) (unknown) (unknown) MCHC 33.8 (30-36) % (units unknown) (unknown) (unknown) (no date) (unknown) (unknown) MCV (80-100) fL (units unknown) (unknown) (unknown) (no date) (unknown) (unknown) MCV 86.5 (80-100) fL (units unknown) (unknown) (unknown) (no date) (unknown) (unknown) MDM - Arrhythmia/Palpitat ions (units unknown) (unknown) (unknown) (no date) (unknown) (unknown) MDM Narrative (units unknown) (unknown) (unknown) (no date) (unknown) (unknown) MR#: [id number] (units unknown) (unknown) (unknown) (no date) (unknown) (unknown) Magnesium (1.6-2.3) mg/dL (units unknown) (unknown) (unknown) (no date) (unknown) (unknown) Magnesium 1.2 L (1.6-2.3) mg/dL (units unknown) (unknown) (unknown) (no date) (unknown) (unknown) Magnesium Stat (units unknown) (unknown) (unknown) (no date) (unknown) (unknown) Jasmine who accepts for admission for AFib RVR with suspected possible sepsis (units unknown) (unknown) (unknown) (no date) (unknown) (unknown) Mediastinum:? Mediastinal contours appear normal.? Heart size is enlarged.? (units unknown) (unknown) (unknown) (no date) (unknown) (unknown) Medical History (Updated 01/15/23 @ 17:33 by Gayla Nunez DO) (units unknown) (unknown) (unknown) (no date) (unknown) (unknown) Medical decision making narrative: (units unknown) (unknown) (unknown) (no date) (unknown) (unknown) Medication Instructions Recorded Confirmed (units unknown) (unknown) (unknown) (no date) (unknown) (unknown) Medication Instructions Recorded (units unknown) (unknown) (unknown) (no date) (unknown) (unknown) Mode of arrival: Family Vehicle (units unknown) (unknown) (unknown) (no date) (unknown) (unknown) [place] # (Auto) (0-900) /uL (units unknown) (unknown) (unknown) (no date) (unknown) (unknown) [place] # (Auto) 1500 H (0-900) /uL (units unknown) (unknown) (unknown) (no date) (unknown) (unknown) [place] % (Auto) (3-14) % (units unknown) (unknown) (unknown) (no date) (unknown) (unknown) [place] % (Auto) 9.2 (3-14) % (units unknown) (unknown) (unknown) (no date) (unknown) (unknown) Mother No significant medical problems (units unknown) (unknown) (unknown) (no date) (unknown) (unknown) NECK: Supple, full range of motion (units unknown) (unknown) (unknown) (no date) (unknown) (unknown) NEUROLOGICAL: Cranial nerves II through XII grossly intact. Moving all (units unknown) (unknown) (unknown) (no date) (unknown) (unknown) NT-Pro-B Natriuret Pep (<125) pg/mL (units unknown) (unknown) (unknown) (no date) (unknown) (unknown) NT-Pro-B Natriuret Pep 2810 H (<125) pg/mL (units unknown) (unknown) (unknown) (no date) (unknown) (unknown) Narrative (units unknown) (unknown) (unknown) (no date) (unknown) (unknown) Neuropathy of both feet (units unknown) (unknown) (unknown) (no date) (unknown) (unknown) Neut # (Auto) (1701-9779) /uL (units unknown) (unknown) (unknown) (no date) (unknown) (unknown) Neut # (Auto) 51418 H (4994-6902) /uL (units unknown) (unknown) (unknown) (no date) (unknown) (unknown) Neut % (Auto) (50-75) % (units unknown) (unknown) (unknown) (no date) (unknown) (unknown) Neut % (Auto) 81.5 H (50-75) % (units unknown) (unknown) (unknown) (no date) (unknown) (unknown) ONE (units unknown) (unknown) (unknown) (no date) (unknown) (unknown) Ondansetron HCl (Ondansetron 4 Mg/2 Ml Inj) 4 mg IV Q6HR PRN (units unknown) (unknown) (unknown) (no date) (unknown) (unknown) Ordered: (units unknown) (unknown) (unknown) (no date) (unknown) (unknown) Ordering Provider: Gayla Nunez D.O. (units unknown) (unknown) (unknown) (no date) (unknown) (unknown) Orders (units unknown) (unknown) (unknown) (no date) (unknown) (unknown) Oxygen Delivery Method Room Air (units unknown) (unknown) (unknown) (no date) (unknown) (unknown) Oxygen Delivery Method (units unknown) (unknown) (unknown) (no date) (unknown) (unknown) PRN Reason: Nausea And Vomiting (units unknown) (unknown) (unknown) (no date) (unknown) (unknown) PROCEDURE:? XR CHEST 1V (units unknown) (unknown) (unknown) (no date) (unknown) (unknown) PT (10.1-12.7) SECONDS (units unknown) (unknown) (unknown) (no date) (unknown) (unknown) PT 19.2 H (10.1-12.7) SECONDS (units unknown) (unknown) (unknown) (no date) (unknown) (unknown) PTT Partial Thromboplastin [place]ie Stat (units unknown) (unknown) (unknown) (no date) (unknown) (unknown) Patient Disposition: Admitted As Inpatient (units unknown) (unknown) (unknown) (no date) (unknown) (unknown) Patient History (units unknown) (unknown) (unknown) (no date) (unknown) (unknown) Patient denies active tobacco, alcohol or illicit drug use. He is accompanied (units unknown) (unknown) (unknown) (no date) (unknown) (unknown) Patient on recheck appears improved. Heart rates improved blood pressures (units unknown) (unknown) (unknown) (no date) (unknown) (unknown) Patient: Arvind Brock MR#: [id number] (units unknown) (unknown) (unknown) (no date) (unknown) (unknown) Patient: Arvind Brock (units unknown) (unknown) (unknown) (no date) (unknown) (unknown) Plt Count (150-400) X103/uL (units unknown) (unknown) (unknown) (no date) (unknown) (unknown) Plt Count 162 (150-400) X103/uL (units unknown) (unknown) (unknown) (no date) (unknown) (unknown) Potassium (3.4-5.1) mmol/L (units unknown) (unknown) (unknown) (no date) (unknown) (unknown) Potassium 4.5 (3.4-5.1) mmol/L (units unknown) (unknown) (unknown) (no date) (unknown) (unknown) Previous Rx's (units unknown) (unknown) (unknown) (no date) (unknown) (unknown) Prior ECG tracings: available for review (units unknown) (unknown) (unknown) (no date) (unknown) (unknown) Procalcitonin (<0.5) ng/mL (units unknown) (unknown) (unknown) (no date) (unknown) (unknown) Procalcitonin 0.50 (<0.5) ng/mL (units unknown) (unknown) (unknown) (no date) (unknown) (unknown) Procalcitonin Stat (units unknown) (unknown) (unknown) (no date) (unknown) (unknown) Procedure: XR chest 1V (units unknown) (unknown) (unknown) (no date) (unknown) (unknown) Prothrombin Time INR Stat (units unknown) (unknown) (unknown) (no date) (unknown) (unknown) Pulse Oximetry 93 94 (units unknown) (unknown) (unknown) (no date) (unknown) (unknown) Pulse Oximetry 93 (units unknown) (unknown) (unknown) (no date) (unknown) (unknown) Pulse Oximetry 94 95 (units unknown) (unknown) (unknown) (no date) (unknown) (unknown) Pulse Oximetry 94 (units unknown) (unknown) (unknown) (no date) (unknown) (unknown) Pulse Oximetry 95 01/15/23 15:26 (units unknown) (unknown) (unknown) (no date) (unknown) (unknown) Pulse Oximetry 95 96 (units unknown) (unknown) (unknown) (no date) (unknown) (unknown) Pulse Oximetry 95 (units unknown) (unknown) (unknown) (no date) (unknown) (unknown) Pulse Oximetry 96 (units unknown) (unknown) (unknown) (no date) (unknown) (unknown) Pulse Oximetry 99 95 93 (units unknown) (unknown) (unknown) (no date) (unknown) (unknown) Pulse Rate 106 H 110 H (units unknown) (unknown) (unknown) (no date) (unknown) (unknown) Pulse Rate 106 H (units unknown) (unknown) (unknown) (no date) (unknown) (unknown) Pulse Rate 108 H 105 H (units unknown) (unknown) (unknown) (no date) (unknown) (unknown) Pulse Rate 108 H (units unknown) (unknown) (unknown) (no date) (unknown) (unknown) Pulse Rate 110 H 109 H (units unknown) (unknown) (unknown) (no date) (unknown) (unknown) Pulse Rate 112 H (units unknown) (unknown) (unknown) (no date) (unknown) (unknown) Pulse Rate 116 H (units unknown) (unknown) (unknown) (no date) (unknown) (unknown) Pulse Rate 123 H 118 H (units unknown) (unknown) (unknown) (no date) (unknown) (unknown) Pulse Rate 135 H (units unknown) (unknown) (unknown) (no date) (unknown) (unknown) Pulse Rate 138 H 126 H (units unknown) (unknown) (unknown) (no date) (unknown) (unknown) Pulse Rate 172 H 01/15/23 15:26 (units unknown) (unknown) (unknown) (no date) (unknown) (unknown) Pulse Rate 209 H 172 H 172 H (units unknown) (unknown) (unknown) (no date) (unknown) (unknown) RBC (4.5-5.9) X106/uL (units unknown) (unknown) (unknown) (no date) (unknown) (unknown) RBC 5.00 (4.5-5.9) X106/uL (units unknown) (unknown) (unknown) (no date) (unknown) (unknown) RDW (11.6-14.8) % (units unknown) (unknown) (unknown) (no date) (unknown) (unknown) RDW 15.3 H (11.6-14.8) % (units unknown) (unknown) (unknown) (no date) (unknown) (unknown) RESPIRATORY: Breath sounds equal bilaterally, no wheezes rales or rhonchi. No (units unknown) (unknown) (unknown) (no date) (unknown) (unknown) ROS Unobtainable: All systems reviewed + are unremarkable except as noted in HPI (units unknown) (unknown) (unknown) (no date) (unknown) (unknown) RSV (PCR) (Negative) (units unknown) (unknown) (unknown) (no date) (unknown) (unknown) RSV (PCR) Negative (Negative) (units unknown) (unknown) (unknown) (no date) (unknown) (unknown) Radiologist's Impresson: (units unknown) (unknown) (unknown) (no date) (unknown) (unknown) Related Data (units unknown) (unknown) (unknown) (no date) (unknown) (unknown) Respiratory Rate 30 H 51 H 53 H (units unknown) (unknown) (unknown) (no date) (unknown) (unknown) Respiratory Rate 34 H (units unknown) (unknown) (unknown) (no date) (unknown) (unknown) Respiratory Rate 37 H 39 H (units unknown) (unknown) (unknown) (no date) (unknown) (unknown) Respiratory Rate 37 H (units unknown) (unknown) (unknown) (no date) (unknown) (unknown) Respiratory Rate 38 H 37 H (units unknown) (unknown) (unknown) (no date) (unknown) (unknown) Respiratory Rate 38 H (units unknown) (unknown) (unknown) (no date) (unknown) (unknown) Respiratory Rate 39 H (units unknown) (unknown) (unknown) (no date) (unknown) (unknown) Respiratory Rate 40 H 39 H (units unknown) (unknown) (unknown) (no date) (unknown) (unknown) Respiratory Rate 43 H 44 H (units unknown) (unknown) (unknown) (no date) (unknown) (unknown) Respiratory Rate 47 H (units unknown) (unknown) (unknown) (no date) (unknown) (unknown) Respiratory Rate 51 H 01/15/23 15:26 (units unknown) (unknown) (unknown) (no date) (unknown) (unknown) Respiratory Rate 51 H (units unknown) (unknown) (unknown) (no date) (unknown) (unknown) Review of Systems (units unknown) (unknown) (unknown) (no date) (unknown) (unknown) SARS-CoV-2 (PCR) (Negative) (units unknown) (unknown) (unknown) (no date) (unknown) (unknown) SARS-CoV-2 (PCR) Negative (Negative) (units unknown) (unknown) (unknown) (no date) (unknown) (unknown) DEIDRA; Protocol (units unknown) (unknown) (unknown) (no date) (unknown) (unknown) SKIN: Warm, diaphoretic, no petechiae, no rashes or lesions. (units unknown) (unknown) (unknown) (no date) (unknown) (unknown) Signed By: (units unknown) (unknown) (unknown) (no date) (unknown) (unknown) Signed (units unknown) (unknown) (unknown) (no date) (unknown) (unknown) Smoking Status: Never smoker (units unknown) (unknown) (unknown) (no date) (unknown) (unknown) Social History (units unknown) (unknown) (unknown) (no date) (unknown) (unknown) Sodium (137-145) mmol/L (units unknown) (unknown) (unknown) (no date) (unknown) (unknown) Sodium 128 L (137-145) mmol/L (units unknown) (unknown) (unknown) (no date) (unknown) (unknown) Sodium Chloride (Normal Saline 0.9%) 1,000 mls @ 1,000 mls/hr IV BOLUS ONE (units unknown) (unknown) (unknown) (no date) (unknown) (unknown) Source: patient, family, RN notes reviewed and old records reviewed (units unknown) (unknown) (unknown) (no date) (unknown) (unknown) Stated Complaint: vomiting/shaking/fe trell (units unknown) (unknown) (unknown) (no date) (unknown) (unknown) Stop: 01/15/23 15:28 (units unknown) (unknown) (unknown) (no date) (unknown) (unknown) Stop: 01/15/23 15:38 (units unknown) (unknown) (unknown) (no date) (unknown) (unknown) Stop: 01/15/23 15:59 (units unknown) (unknown) (unknown) (no date) (unknown) (unknown) Stop: 01/15/23 16:29 (units unknown) (unknown) (unknown) (no date) (unknown) (unknown) Stop: 01/15/23 18:52 (units unknown) (unknown) (unknown) (no date) (unknown) (unknown) Substance Use Type: does not use (units unknown) (unknown) (unknown) (no date) (unknown) (unknown) Surgical History (units unknown) (unknown) (unknown) (no date) (unknown) (unknown) Surgical changes and devices:? None.? (units unknown) (unknown) (unknown) (no date) (unknown) (unknown) TECHNIQUE:? One view of the chest was acquired.? (units unknown) (unknown) (unknown) (no date) (unknown) (unknown) Temperature 101 F H (units unknown) (unknown) (unknown) (no date) (unknown) (unknown) Temperature 101.1 F H (units unknown) (unknown) (unknown) (no date) (unknown) (unknown) Temperature (units unknown) (unknown) (unknown) (no date) (unknown) (unknown) The high probability of a clinically significant, sudden or life threatening (units unknown) (unknown) (unknown) (no date) (unknown) (unknown) This is a 67-year-old male who presents with AFib RVR but is also febrile and (units unknown) (unknown) (unknown) (no date) (unknown) (unknown) This is a 67-year-old male with known history of atrial fibrillation who is (units unknown) (unknown) (unknown) (no date) (unknown) (unknown) Time Seen by Provider: 01/15/23 15:29 (units unknown) (unknown) (unknown) (no date) (unknown) (unknown) Total Bilirubin (0.2-1.3) mg/dL (units unknown) (unknown) (unknown) (no date) (unknown) (unknown) Total Bilirubin 1.2 (0.2-1.3) mg/dL (units unknown) (unknown) (unknown) (no date) (unknown) (unknown) Total Creatine Kinase (55-170) U/L (units unknown) (unknown) (unknown) (no date) (unknown) (unknown) Total Creatine Kinase 133 (55-170) U/L (units unknown) (unknown) (unknown) (no date) (unknown) (unknown) Total Critical Care Time: 40 (units unknown) (unknown) (unknown) (no date) (unknown) (unknown) Total Protein (6.3-8.2) g/dL (units unknown) (unknown) (unknown) (no date) (unknown) (unknown) Total Protein 7.7 (6.3-8.2) g/dL (units unknown) (unknown) (unknown) (no date) (unknown) (unknown) Troponin + CK Cardiac Panel Stat (units unknown) (unknown) (unknown) (no date) (unknown) (unknown) Troponin I (0.01-0.034) ng/mL (units unknown) (unknown) (unknown) (no date) (unknown) (unknown) Troponin I 0.016 (0.01-0.034) ng/mL (units unknown) (unknown) (unknown) (no date) (unknown) (unknown) U-100 Insulin) (units unknown) (unknown) (unknown) (no date) (unknown) (unknown) UA Complete [Urinalysis and Microscopic] Stat (units unknown) (unknown) (unknown) (no date) (unknown) (unknown) Vancomycin HCl/Dextrose (Vancomycin) 1,500 mg in 300 mls @ 200 mls/hr IV NOW (units unknown) (unknown) (unknown) (no date) (unknown) (unknown) Vital Signs - 8 hr (units unknown) (unknown) (unknown) (no date) (unknown) (unknown) Vital Signs (units unknown) (unknown) (unknown) (no date) (unknown) (unknown) Vital signs: (units unknown) (unknown) (unknown) (no date) (unknown) (unknown) WBC (4.5-11.0) X103/uL (units unknown) (unknown) (unknown) (no date) (unknown) (unknown) WBC 15.9 H (4.5-11.0) X103/uL (units unknown) (unknown) (unknown) (no date) (unknown) (unknown) XR chest 1V Stat (units unknown) (unknown) (unknown) (no date) (unknown) (unknown) XRay Report (units unknown) (unknown) (unknown) (no date) (unknown) (unknown) [Embedded Image Not Available] (units unknown) (unknown) (unknown) (no date) (unknown) (unknown) [x] Data Review and interpretation (units unknown) (unknown) (unknown) (no date) (unknown) (unknown) [x] Documentation (units unknown) (unknown) (unknown) (no date) (unknown) (unknown) [x] Medication orders and management (units unknown) (unknown) (unknown) (no date) (unknown) (unknown) [x] Patient assessment and monitoring of vital signs (units unknown) (unknown) (unknown) (no date) (unknown) (unknown) accessory muscle use. Mild tachypnea. (units unknown) (unknown) (unknown) (no date) (unknown) (unknown) additional 10 mg dose and plan for drip. Patient was also given fluids size (units unknown) (unknown) (unknown) (no date) (unknown) (unknown) alcohol intake frequency: other (units unknown) (unknown) (unknown) (no date) (unknown) (unknown) alcohol intake: never (units unknown) (unknown) (unknown) (no date) (unknown) (unknown) and below (units unknown) (unknown) (unknown) (no date) (unknown) (unknown) any new swelling in his extremities. His states he has not been telling (units unknown) (unknown) (unknown) (no date) (unknown) (unknown) appear (units unknown) (unknown) (unknown) (no date) (unknown) (unknown) but no clear source of infection patient does meet SIRS criteria. Patient was (units unknown) (unknown) (unknown) (no date) (unknown) (unknown) by his who brought him today who states he refused transport via EMS and (units unknown) (unknown) (unknown) (no date) (unknown) (unknown) call lab and they are currently running it. Chest x-ray does not show clear (units unknown) (unknown) (unknown) (no date) (unknown) (unknown) can anticoagulated for cardioversion. Sodium is 128 chloride 96 with a CO2 of (units unknown) (unknown) (unknown) (no date) (unknown) (unknown) catheterization or stress test no ablation. He denies any prior surgeries. He (units unknown) (unknown) (unknown) (no date) (unknown) (unknown) currently but has been only 3 weeks since he was discharged so he is not fully (units unknown) (unknown) (unknown) (no date) (unknown) (unknown) denies chest pain or shortness of breath he does state he is had some fever, he (units unknown) (unknown) (unknown) (no date) (unknown) (unknown) denies diarrhea constipation he denies dysuria urgency or frequency. He denies (units unknown) (unknown) (unknown) (no date) (unknown) (unknown) department. Patient states his primary care is through the [facility] base. He does (units unknown) (unknown) (unknown) (no date) (unknown) (unknown) deterioration of the [cardiac, resp] system(s) required my full and direct at (units unknown) (unknown) (unknown) (no date) (unknown) (unknown) does answer questions appropriately but appears to feel unwell (units unknown) (unknown) (unknown) (no date) (unknown) (unknown) does have a leukocytosis he is febrile was given Tylenol for his fever he has a (units unknown) (unknown) (unknown) (no date) (unknown) (unknown) does have some depression in 1 and aVL. Patient has prior from 12/18/2022 with (units unknown) (unknown) (unknown) (no date) (unknown) (unknown) dyslipidemia. According to patient's she is unsure if he is taking his (units unknown) (unknown) (unknown) (no date) (unknown) (unknown) effusion (units unknown) (unknown) (unknown) (no date) (unknown) (unknown) extremities (units unknown) (unknown) (unknown) (no date) (unknown) (unknown) fevers generally feeling unwell he states his heart rate has been fast. He (units unknown) (unknown) (unknown) (no date) (unknown) (unknown) focal (units unknown) (unknown) (unknown) (no date) (unknown) (unknown) for fluid overload, patient had an EF on his last admission a month ago that was (units unknown) (unknown) (unknown) (no date) (unknown) (unknown) gallops. No JVD. Trace edema bilaterally. (units unknown) (unknown) (unknown) (no date) (unknown) (unknown) given a L bolus but discussed I did not give a 30 cc/kilos as he is higher risk (units unknown) (unknown) (unknown) (no date) (unknown) (unknown) glucose is 250 to come Mag slightly low at 1.2 with a negative troponin and BNP (units unknown) (unknown) (unknown) (no date) (unknown) (unknown) had several days of fever. Suspect his AFib RVR is a response to fever and (units unknown) (unknown) (unknown) (no date) (unknown) (unknown) he is able to tell that he did note his left leg looks kind of red and the toes. (units unknown) (unknown) (unknown) (no date) (unknown) (unknown) her about any symptoms but she has noted he is had fevers for the last 5 days (units unknown) (unknown) (unknown) (no date) (unknown) (unknown) his drip was bumped up from 5 mics for his diltiazem drip. Heart rate has been (units unknown) (unknown) (unknown) (no date) (unknown) (unknown) household members: spouse (units unknown) (unknown) (unknown) (no date) (unknown) (unknown) improvement in rate down to 120s with a systolic pressure of 170s, was given (units unknown) (unknown) (unknown) (no date) (unknown) (unknown) infection. Patient denies other symptoms currently he is diaphoretic but has a (units unknown) (unknown) (unknown) (no date) (unknown) (unknown) infiltrate.? No pleural effusions or pneumothorax.? (units unknown) (unknown) (unknown) (no date) (unknown) (unknown) insulin glargine 100 unit/mL 12 unit SUBCUT BEDTIME 05/11/20 01/15/23 (units unknown) (unknown) (unknown) (no date) (unknown) (unknown) intact (units unknown) (unknown) (unknown) (no date) (unknown) (unknown) intermittently low, he states he feels much better he is no longer diaphoretic (units unknown) (unknown) (unknown) (no date) (unknown) (unknown) leftward shift, INR is elevated 1.7 so it likely is taking his anticoagulation (units unknown) (unknown) (unknown) (no date) (unknown) (unknown) leg (units unknown) (unknown) (unknown) (no date) (unknown) (unknown) lisinopril 5 mg tablet 5 mg PO DAILY 90 days #90 tabs 12/21/22 (units unknown) (unknown) (unknown) (no date) (unknown) (unknown) medications regularly. He was admitted for AFib RVR in November and was not (units unknown) (unknown) (unknown) (no date) (unknown) (unknown) metformin 500 mg tablet 500 mg PO BID 05/11/20 01/15/23 (units unknown) (unknown) (unknown) (no date) (unknown) (unknown) metoprolol succinate 50 mg 50 mg PO BID 90 days #180 tabs 12/21/22 (units unknown) (unknown) (unknown) (no date) (unknown) (unknown) moist mucous membranes (units unknown) (unknown) (unknown) (no date) (unknown) (unknown) more consistently 115th 290s, his blood pressure has tolerated this well. He (units unknown) (unknown) (unknown) (no date) (unknown) (unknown) not follow with a passenger service representative regularly. (units unknown) (unknown) (unknown) (no date) (unknown) (unknown) occupational status: employed (units unknown) (unknown) (unknown) (no date) (unknown) (unknown) of 2800 lipase 367 pro callus 0.5. Patient has not given a urine sample yet, (units unknown) (unknown) (unknown) (no date) (unknown) (unknown) on his way here to the hospital. He denies abdominal back or flank pain. He (units unknown) (unknown) (unknown) (no date) (unknown) (unknown) or pneumothorax. (units unknown) (unknown) (unknown) (no date) (unknown) (unknown) piperacillin [From Zosyn] Allergy Severe Uticaria Verified 05/11/20 22:50 (units unknown) (unknown) (unknown) (no date) (unknown) (unknown) procedures but includes the following: (units unknown) (unknown) (unknown) (no date) (unknown) (unknown) quadrants. No guarding or rebound, rigidity, no mass (units unknown) (unknown) (unknown) (no date) (unknown) (unknown) right leg likely has a cellulitis as his source. Patient was covered initiating (units unknown) (unknown) (unknown) (no date) (unknown) (unknown) rivaroxaban 20 mg tablet (Xarelto) 20 mg PO QPM 05/11/20 01/15/23 (units unknown) (unknown) (unknown) (no date) (unknown) (unknown) she is been arguing has him for several days to get him to come to the emergency (units unknown) (unknown) (unknown) (no date) (unknown) (unknown) similar appearing ST segments that time his rate was 100 but was in AFib. (units unknown) (unknown) (unknown) (no date) (unknown) (unknown) since Sunday. Patient denies any prior cardiac interventions no heart (units unknown) (unknown) (unknown) (no date) (unknown) (unknown) source of infection exam does not give me a clear source. I spoke with (units unknown) (unknown) (unknown) (no date) (unknown) (unknown) states he is allergic to a penicillin type medication appears to be Zosyn. (units unknown) (unknown) (unknown) (no date) (unknown) (unknown) states he is felt unwell in general. No syncope. He is had nausea and vomiting (units unknown) (unknown) (unknown) (no date) (unknown) (unknown) subcutaneous solution (Lantus (units unknown) (unknown) (unknown) (no date) (unknown) (unknown) supposed to be anticoagulated on Xarelto, diabetes hypertension and (units unknown) (unknown) (unknown) (no date) (unknown) (unknown) suspect sepsis has part of his current problems, patient is currently on 10 mics (units unknown) (unknown) (unknown) (no date) (unknown) (unknown) tablet,extended release 24 hr (units unknown) (unknown) (unknown) (no date) (unknown) (unknown) taking medications regularly at that time. Patient presents with 5 days of (units unknown) (unknown) (unknown) (no date) (unknown) (unknown) tazobactam [From Zosyn] Allergy Severe Uticaria Verified 05/11/20 22:50 (units unknown) (unknown) (unknown) (no date) (unknown) (unknown) temperature of 101? F as well. Was given Tylenol, IV diltiazem with some (units unknown) (unknown) (unknown) (no date) (unknown) (unknown) tention, intervention and personal management. The aggregate critical care time (units unknown) (unknown) (unknown) (no date) (unknown) (unknown) unremarkable.? (units unknown) (unknown) (unknown) (no date) (unknown) (unknown) was [] minutes. This time is in addition to time spent performing reported (units unknown) (unknown) (unknown) (no date) (unknown) (unknown) with vancomycin. (units unknown) (unknown) Result panel 421 (unknown) (no date) (unknown) (unknown) 3.2 mmol/l (unknown) Result panel 422 (unknown) (no date) (unknown) (unknown) (no value) (units unknown) (unknown) (unknown) (no date) (unknown) (unknown) <Electronically signed by Gayla Nunez D.O.> (units unknown) (unknown) (unknown) (no date) (unknown) (unknown) [id number] (units unknown) (unknown) (unknown) (no date) (unknown) (unknown) 01/15/23 01/15/23 01/15/23 Range/Units (units unknown) (unknown) (unknown) (no date) (unknown) (unknown) 01/15/23 01/15/23 Range/Units (units unknown) (unknown) (unknown) (no date) (unknown) (unknown) 01/15/23 15:25 (units unknown) (unknown) (unknown) (no date) (unknown) (unknown) 01/15/23 15:26 (units unknown) (unknown) (unknown) (no date) (unknown) (unknown) 01/15/23 15:30 (units unknown) (unknown) (unknown) (no date) (unknown) (unknown) 01/15/23 15:49 (units unknown) (unknown) (unknown) (no date) (unknown) (unknown) 01/15/23 1847 (units unknown) (unknown) (unknown) (no date) (unknown) (unknown) 01/15/23 (units unknown) (unknown) (unknown) (no date) (unknown) (unknown) [address] [place] [address] (units unknown) (unknown) (unknown) (no date) (unknown) (unknown) 15:25 15:25 15:25 (units unknown) (unknown) (unknown) (no date) (unknown) (unknown) 15:25 15:49 (units unknown) (unknown) (unknown) (no date) (unknown) (unknown) 15:26 01/15/23 (units unknown) (unknown) (unknown) (no date) (unknown) (unknown) 15:27 01/15/23 (units unknown) (unknown) (unknown) (no date) (unknown) (unknown) 15:27 (units unknown) (unknown) (unknown) (no date) (unknown) (unknown) 15:29 01/15/23 (units unknown) (unknown) (unknown) (no date) (unknown) (unknown) 15:30 01/15/23 (units unknown) (unknown) (unknown) (no date) (unknown) (unknown) 15:30 (units unknown) (unknown) (unknown) (no date) (unknown) (unknown) 15:35 01/15/23 (units unknown) (unknown) (unknown) (no date) (unknown) (unknown) 15:40 (units unknown) (unknown) (unknown) (no date) (unknown) (unknown) 15:45 01/15/23 (units unknown) (unknown) (unknown) (no date) (unknown) (unknown) 15:48 01/15/23 (units unknown) (unknown) (unknown) (no date) (unknown) (unknown) 15:48 (units unknown) (unknown) (unknown) (no date) (unknown) (unknown) 15:50 01/15/23 (units unknown) (unknown) (unknown) (no date) (unknown) (unknown) 15:55 01/15/23 (units unknown) (unknown) (unknown) (no date) (unknown) (unknown) 15:55 (units unknown) (unknown) (unknown) (no date) (unknown) (unknown) 16:00 01/15/23 (units unknown) (unknown) (unknown) (no date) (unknown) (unknown) 16:00 (units unknown) (unknown) (unknown) (no date) (unknown) (unknown) 16:05 01/15/23 (units unknown) (unknown) (unknown) (no date) (unknown) (unknown) 16:10 01/15/23 (units unknown) (unknown) (unknown) (no date) (unknown) (unknown) 16:10 (units unknown) (unknown) (unknown) (no date) (unknown) (unknown) 16:15 01/15/23 (units unknown) (unknown) (unknown) (no date) (unknown) (unknown) 16:15 (units unknown) (unknown) (unknown) (no date) (unknown) (unknown) 16:20 01/15/23 (units unknown) (unknown) (unknown) (no date) (unknown) (unknown) 16:25 01/15/23 (units unknown) (unknown) (unknown) (no date) (unknown) (unknown) 16:25 (units unknown) (unknown) (unknown) (no date) (unknown) (unknown) 16:30 01/15/23 (units unknown) (unknown) (unknown) (no date) (unknown) (unknown) 16:30 (units unknown) (unknown) (unknown) (no date) (unknown) (unknown) 16:35 01/15/23 (units unknown) (unknown) (unknown) (no date) (unknown) (unknown) 16:40 01/15/23 (units unknown) (unknown) (unknown) (no date) (unknown) (unknown) 16:45 01/15/23 (units unknown) (unknown) (unknown) (no date) (unknown) (unknown) 16:45 (units unknown) (unknown) (unknown) (no date) (unknown) (unknown) 16:50 01/15/23 (units unknown) (unknown) (unknown) (no date) (unknown) (unknown) 16:50 (units unknown) (unknown) (unknown) (no date) (unknown) (unknown) 16:51 (units unknown) (unknown) (unknown) (no date) (unknown) (unknown) 16:55 01/15/23 (units unknown) (unknown) (unknown) (no date) (unknown) (unknown) 17:00 01/15/23 (units unknown) (unknown) (unknown) (no date) (unknown) (unknown) 17:00 (units unknown) (unknown) (unknown) (no date) (unknown) (unknown) 17:05 01/15/23 (units unknown) (unknown) (unknown) (no date) (unknown) (unknown) 17:05 (units unknown) (unknown) (unknown) (no date) (unknown) (unknown) 17:10 03/27/23 (units unknown) (unknown) (unknown) (no date) (unknown) (unknown) 17:15 01/15/23 (units unknown) (unknown) (unknown) (no date) (unknown) (unknown) 17:15 (units unknown) (unknown) (unknown) (no date) (unknown) (unknown) 17:20 01/15/23 (units unknown) (unknown) (unknown) (no date) (unknown) (unknown) 17:20 (units unknown) (unknown) (unknown) (no date) (unknown) (unknown) 19 creatinine 1.12 but appears similar to his prior to beginning of the month (units unknown) (unknown) (unknown) (no date) (unknown) (unknown) 35-40%. (units unknown) (unknown) (unknown) (no date) (unknown) (unknown) ? (units unknown) (unknown) (unknown) (no date) (unknown) (unknown) ABDOMEN: Soft, nontender. Nondistended. Normoactive bowel sounds all 4 (units unknown) (unknown) (unknown) (no date) (unknown) (unknown) AFib with RVR rate of 169 QRS 82 QTC 449. No clear acute ST elevation. Patient (units unknown) (unknown) (unknown) (no date) (unknown) (unknown) ALT (<50) IU/L (units unknown) (unknown) (unknown) (no date) (unknown) (unknown) ALT 29 (<50) IU/L (units unknown) (unknown) (unknown) (no date) (unknown) (unknown) APTT (26-36) SECONDS (units unknown) (unknown) (unknown) (no date) (unknown) (unknown) APTT 33 (26-36) SECONDS (units unknown) (unknown) (unknown) (no date) (unknown) (unknown) AST (17-59) IU/L (units unknown) (unknown) (unknown) (no date) (unknown) (unknown) AST 32 (17-59) IU/L (units unknown) (unknown) (unknown) (no date) (unknown) (unknown) Accession Number: [id number] ?? (units unknown) (unknown) (unknown) (no date) (unknown) (unknown) Acct:[id number] (units unknown) (unknown) (unknown) (no date) (unknown) (unknown) Acetaminophen (Acetaminophen 325 Mg Tablet) 975 mg PO NOW ONE (units unknown) (unknown) (unknown) (no date) (unknown) (unknown) Admin: 01/15/23 15:43 Dose: 5 mg/hr, 5 mls/hr (units unknown) (unknown) (unknown) (no date) (unknown) (unknown) Admin: 01/15/23 15:45 Dose: 1,000 mls/hr (units unknown) (unknown) (unknown) (no date) (unknown) (unknown) Admit Date/Time: 01/15/23 17:20 (units unknown) (unknown) (unknown) (no date) (unknown) (unknown) Admit Provider: Graciela Burton (units unknown) (unknown) (unknown) (no date) (unknown) (unknown) Afib (units unknown) (unknown) (unknown) (no date) (unknown) (unknown) Age/Sex: 67 / M (units unknown) (unknown) (unknown) (no date) (unknown) (unknown) Albumin (3.5-5.0) g/dL (units unknown) (unknown) (unknown) (no date) (unknown) (unknown) Albumin 4.1 (3.5-5.0) g/dL (units unknown) (unknown) (unknown) (no date) (unknown) (unknown) Albumin/Globulin Ratio (1.0-2.8) (units unknown) (unknown) (unknown) (no date) (unknown) (unknown) Albumin/Globulin Ratio 1.1 (1.0-2.8) (units unknown) (unknown) (unknown) (no date) (unknown) (unknown) Alkaline Phosphatase (38-126) U/L (units unknown) (unknown) (unknown) (no date) (unknown) (unknown) Alkaline Phosphatase 97 (38-126) U/L (units unknown) (unknown) (unknown) (no date) (unknown) (unknown) Allergies (units unknown) (unknown) (unknown) (no date) (unknown) (unknown) Allergy/AdvReac Type Severity Reaction Status Date / Time (units unknown) (unknown) (unknown) (no date) (unknown) (unknown) [place] [address] (units unknown) (unknown) (unknown) (no date) (unknown) (unknown) And when I evaluate he definitely has erythema and warmth compared to the (units unknown) (unknown) (unknown) (no date) (unknown) (unknown) Approved by: Reza Sanchez M.D. on 01/15/2023 at 16:03?? (units unknown) (unknown) (unknown) (no date) (unknown) (unknown) Atrial fibrillation with rapid ventricular response, Sepsis, Cellulitis of left (units unknown) (unknown) (unknown) (no date) (unknown) (unknown) Attestation: I personally reviewed and interpreted this ECG as follows: (units unknown) (unknown) (unknown) (no date) (unknown) (unknown) Attestation: (units unknown) (unknown) (unknown) (no date) (unknown) (unknown) BNP [NT-proBNP (BNP-Adult 18+)] Stat (units unknown) (unknown) (unknown) (no date) (unknown) (unknown) BUN (9-20) mg/dL (units unknown) (unknown) (unknown) (no date) (unknown) (unknown) BUN 24 H (9-20) mg/dL (units unknown) (unknown) (unknown) (no date) (unknown) (unknown) BUN/Creatinine Ratio (6-22) (units unknown) (unknown) (unknown) (no date) (unknown) (unknown) BUN/Creatinine Ratio 21.4 (6-22) (units unknown) (unknown) (unknown) (no date) (unknown) (unknown) Baso # (Auto) (0-100) /uL (units unknown) (unknown) (unknown) (no date) (unknown) (unknown) Baso # (Auto) 0 (0-100) /uL (units unknown) (unknown) (unknown) (no date) (unknown) (unknown) Baso % (Auto) (0-2) % (units unknown) (unknown) (unknown) (no date) (unknown) (unknown) Baso % (Auto) 0.3 (0-2) % (units unknown) (unknown) (unknown) (no date) (unknown) (unknown) Blood Culture Stat (units unknown) (unknown) (unknown) (no date) (unknown) (unknown) Blood Pressure 105/57 L (units unknown) (unknown) (unknown) (no date) (unknown) (unknown) Blood Pressure 106/58 L (units unknown) (unknown) (unknown) (no date) (unknown) (unknown) Blood Pressure 113/55 L 114/58 L (units unknown) (unknown) (unknown) (no date) (unknown) (unknown) Blood Pressure 113/58 L 108/59 L (units unknown) (unknown) (unknown) (no date) (unknown) (unknown) Blood Pressure 115/58 L (units unknown) (unknown) (unknown) (no date) (unknown) (unknown) Blood Pressure 119/66 130/56 L (units unknown) (unknown) (unknown) (no date) (unknown) (unknown) Blood Pressure 120/56 L 126/61 (units unknown) (unknown) (unknown) (no date) (unknown) (unknown) Blood Pressure 122/57 L (units unknown) (unknown) (unknown) (no date) (unknown) (unknown) Blood Pressure 123/72 117/56 L (units unknown) (unknown) (unknown) (no date) (unknown) (unknown) Blood Pressure 125/63 (units unknown) (unknown) (unknown) (no date) (unknown) (unknown) Blood Pressure 126/58 L (units unknown) (unknown) (unknown) (no date) (unknown) (unknown) Blood Pressure 127/57 L (units unknown) (unknown) (unknown) (no date) (unknown) (unknown) Blood Pressure 143/63 H (units unknown) (unknown) (unknown) (no date) (unknown) (unknown) Blood Pressure 156/60 H 122/58 L (units unknown) (unknown) (unknown) (no date) (unknown) (unknown) Blood Pressure 172/92 H (units unknown) (unknown) (unknown) (no date) (unknown) (unknown) Blood Pressure 183/84 H 140/69 (units unknown) (unknown) (unknown) (no date) (unknown) (unknown) Blood Pressure 193/91 H (units unknown) (unknown) (unknown) (no date) (unknown) (unknown) Bones and chest wall:? No suspicious bony lesions.? Overlying soft tissues (units unknown) (unknown) (unknown) (no date) (unknown) (unknown) CARDIOVASCULAR: Irregularly irregular and tachycardic without murmurs, rubs or (units unknown) (unknown) (unknown) (no date) (unknown) (unknown) CK-MB (CK-2) (<2.37) ng/mL (units unknown) (unknown) (unknown) (no date) (unknown) (unknown) CK-MB (CK-2) 1.09 (<2.37) ng/mL (units unknown) (unknown) (unknown) (no date) (unknown) (unknown) CK-MB (CK-2) Rel Index (1.5-5.0) % (units unknown) (unknown) (unknown) (no date) (unknown) (unknown) CK-MB (CK-2) Rel Index 0.8 L (1.5-5.0) % (units unknown) (unknown) (unknown) (no date) (unknown) (unknown) COMPARISON:[facility], CR, XR CHEST 1V, 12/19/2022, 16:16. (units unknown) (unknown) (unknown) (no date) (unknown) (unknown) COVID/RSV/influenza swab is negative. Lactate is still pending we did have to (units unknown) (unknown) (unknown) (no date) (unknown) (unknown) Calcium (8.4-10.2) mg/dL (units unknown) (unknown) (unknown) (no date) (unknown) (unknown) Calcium 8.9 (8.4-10.2) mg/dL (units unknown) (unknown) (unknown) (no date) (unknown) (unknown) Called back down to lab, lactate still pending at 1845. Lab released is 3.2 (units unknown) (unknown) (unknown) (no date) (unknown) (unknown) Carbon Dioxide (22-32) mmol/L (units unknown) (unknown) (unknown) (no date) (unknown) (unknown) Carbon Dioxide 19 L (22-32) mmol/L (units unknown) (unknown) (unknown) (no date) (unknown) (unknown) Chest x-ray: (units unknown) (unknown) (unknown) (no date) (unknown) (unknown) Chief Complaint: Arrhythmia/Palpitat ions (units unknown) (unknown) (unknown) (no date) (unknown) (unknown) Chloride (98-107) mmol/L (units unknown) (unknown) (unknown) (no date) (unknown) (unknown) Chloride 96 L (98-107) mmol/L (units unknown) (unknown) (unknown) (no date) (unknown) (unknown) Clinical Impression: (units unknown) (unknown) (unknown) (no date) (unknown) (unknown) Complete Blood Count AUTO DIFF Stat (units unknown) (unknown) (unknown) (no date) (unknown) (unknown) Comprehensive Metabolic Panel Stat (units unknown) (unknown) (unknown) (no date) (unknown) (unknown) Course (units unknown) (unknown) (unknown) (no date) (unknown) (unknown) Covid-19 + FLU A/B + RSV - PCR Stat (units unknown) (unknown) (unknown) (no date) (unknown) (unknown) Creatinine (0.66-1.25) mg/dL (units unknown) (unknown) (unknown) (no date) (unknown) (unknown) Creatinine 1.12 (0.66-1.25) mg/dL (units unknown) (unknown) (unknown) (no date) (unknown) (unknown) Critical Care Time (units unknown) (unknown) (unknown) (no date) (unknown) (unknown) Critical Care Time: Yes (units unknown) (unknown) (unknown) (no date) (unknown) (unknown) DILTIAZEM (Diltiazem 125 Mg/125 Ml-D5w) 125 mg in 125 mls @ 5 mls/hr IV TITRATE (units unknown) (unknown) (unknown) (no date) (unknown) (unknown) : 1955 Acct:[id number] (units unknown) (unknown) (unknown) (no date) (unknown) (unknown) : 1955 (units unknown) (unknown) (unknown) (no date) (unknown) (unknown) Date of Service: 01/15/23 (units unknown) (unknown) (unknown) (no date) (unknown) (unknown) Departure (units unknown) (unknown) (unknown) (no date) (unknown) (unknown) Diabetes mellitus (units unknown) (unknown) (unknown) (no date) (unknown) (unknown) Diabetes (units unknown) (unknown) (unknown) (no date) (unknown) (unknown) Dictated by: Reza Sanchez M.D. on 01/15/2023 at 16:03 ? ? (units unknown) (unknown) (unknown) (no date) (unknown) (unknown) Diltiazem HCl (Diltiazem 5 Mg/Ml Sdv) 10 mg IV NOW ONE (units unknown) (unknown) (unknown) (no date) (unknown) (unknown) Discharge Plan (units unknown) (unknown) (unknown) (no date) (unknown) (unknown) Discontinued Medications (units unknown) (unknown) (unknown) (no date) (unknown) (unknown) Documented By: RL (units unknown) (unknown) (unknown) (no date) (unknown) (unknown) ECG Data (units unknown) (unknown) (unknown) (no date) (unknown) (unknown) ED Orders (units unknown) (unknown) (unknown) (no date) (unknown) (unknown) EKG-12 Lead Stat (units unknown) (unknown) (unknown) (no date) (unknown) (unknown) ER Physician: Gayla Nunez D.O. (units unknown) (unknown) (unknown) (no date) (unknown) (unknown) EXTREMITIES: Normal range of motion, no clubbing or edema. Neurovascularly (units unknown) (unknown) (unknown) (no date) (unknown) (unknown) Emergency Report (units unknown) (unknown) (unknown) (no date) (unknown) (unknown) Eos # (Auto) (0-450) /uL (units unknown) (unknown) (unknown) (no date) (unknown) (unknown) Eos # (Auto) 0 (0-450) /uL (units unknown) (unknown) (unknown) (no date) (unknown) (unknown) Eos % (Auto) (2-4) % (units unknown) (unknown) (unknown) (no date) (unknown) (unknown) Eos % (Auto) 0.0 L (2-4) % (units unknown) (unknown) (unknown) (no date) (unknown) (unknown) Estimated GFR > 60 (>60) mL/min (units unknown) (unknown) (unknown) (no date) (unknown) (unknown) Estimated GFR (>60) mL/min (units unknown) (unknown) (unknown) (no date) (unknown) (unknown) Exam Narrative: (units unknown) (unknown) (unknown) (no date) (unknown) (unknown) Exam (units unknown) (unknown) (unknown) (no date) (unknown) (unknown) FINDINGS:? (units unknown) (unknown) (unknown) (no date) (unknown) (unknown) Family History (units unknown) (unknown) (unknown) (no date) (unknown) (unknown) Father Smoker (units unknown) (unknown) (unknown) (no date) (unknown) (unknown) GENERAL: Alert and oriented x three, diaphoretic in moderate distress patient (units unknown) (unknown) (unknown) (no date) (unknown) (unknown) : No CVA tenderness (units unknown) (unknown) (unknown) (no date) (unknown) (unknown) General (units unknown) (unknown) (unknown) (no date) (unknown) (unknown) Globulin (1.7-4.1) g/dL (units unknown) (unknown) (unknown) (no date) (unknown) (unknown) Globulin 3.6 (1.7-4.1) g/dL (units unknown) (unknown) (unknown) (no date) (unknown) (unknown) Glucose (80-110) mg/dL (units unknown) (unknown) (unknown) (no date) (unknown) (unknown) Glucose 252 H (80-110) mg/dL (units unknown) (unknown) (unknown) (no date) (unknown) (unknown) HEENT: Head normocephalic, atraumatic, EOMI, pupils reactive, face symmetric, (units unknown) (unknown) (unknown) (no date) (unknown) (unknown) HPI - Arrhythmia/Palpitat ions (units unknown) (unknown) (unknown) (no date) (unknown) (unknown) HPI narrative: (units unknown) (unknown) (unknown) (no date) (unknown) (unknown) Hct (41-53) % (units unknown) (unknown) (unknown) (no date) (unknown) (unknown) Hct 43.2 (41-53) % (units unknown) (unknown) (unknown) (no date) (unknown) (unknown) Heart attack (units unknown) (unknown) (unknown) (no date) (unknown) (unknown) Hgb (13.5-17.5) g/dL (units unknown) (unknown) (unknown) (no date) (unknown) (unknown) Hgb 14.6 (13.5-17.5) g/dL (units unknown) (unknown) (unknown) (no date) (unknown) (unknown) History of Present Illness (units unknown) (unknown) (unknown) (no date) (unknown) (unknown) History of hernia repair (units unknown) (unknown) (unknown) (no date) (unknown) (unknown) History of neck surgery (units unknown) (unknown) (unknown) (no date) (unknown) (unknown) Home Medications (units unknown) (unknown) (unknown) (no date) (unknown) (unknown) Hyperlipidemia (units unknown) (unknown) (unknown) (no date) (unknown) (unknown) Hypertension (units unknown) (unknown) (unknown) (no date) (unknown) (unknown) IMPRESSION:? Mild pulmonary vascular congestion.? No focal infiltrate, pleural (units unknown) (unknown) (unknown) (no date) (unknown) (unknown) INDICATIONS:? chest pain (units unknown) (unknown) (unknown) (no date) (unknown) (unknown) INR (0.9-1.3) (units unknown) (unknown) (unknown) (no date) (unknown) (unknown) INR 1.7 H (0.9-1.3) (units unknown) (unknown) (unknown) (no date) (unknown) (unknown) Imaging Data (units unknown) (unknown) (unknown) (no date) (unknown) (unknown) Influenza A (RT-PCR) (NEGATIVE) (units unknown) (unknown) (unknown) (no date) (unknown) (unknown) Influenza A (RT-PCR) Flu a negative (NEGATIVE) (units unknown) (unknown) (unknown) (no date) (unknown) (unknown) Influenza B (RT-PCR) (NEGATIVE) (units unknown) (unknown) (unknown) (no date) (unknown) (unknown) Influenza B (RT-PCR) Flu b negative (NEGATIVE) (units unknown) (unknown) (unknown) (no date) (unknown) (unknown) Influenza Virus Vaccine (Influenza Hd Vaccine 0.7 Ml Syringe) 0.7 ml IM .ONCE (units unknown) (unknown) (unknown) (no date) (unknown) (unknown) Initial Vital Signs (units unknown) (unknown) (unknown) (no date) (unknown) (unknown) Initial Vital Signs: (units unknown) (unknown) (unknown) (no date) (unknown) (unknown) Interpretation: (units unknown) (unknown) (unknown) (no date) (unknown) (unknown) [address] [address] (units unknown) (unknown) (unknown) (no date) (unknown) (unknown) [facility] (units unknown) (unknown) (unknown) (no date) (unknown) (unknown) Lab Data (units unknown) (unknown) (unknown) (no date) (unknown) (unknown) Lab Results (units unknown) (unknown) (unknown) (no date) (unknown) (unknown) Labs: (units unknown) (unknown) (unknown) (no date) (unknown) (unknown) Lactate (Lactic Acid) Stat (units unknown) (unknown) (unknown) (no date) (unknown) (unknown) Last Admin: 01/15/23 15:40 Dose: 10 mg (units unknown) (unknown) (unknown) (no date) (unknown) (unknown) Last Admin: 01/15/23 15:41 Dose: 10 mg (units unknown) (unknown) (unknown) (no date) (unknown) (unknown) Last Admin: 01/15/23 16:10 Dose: 975 mg (units unknown) (unknown) (unknown) (no date) (unknown) (unknown) Last Admin: 01/15/23 17:34 Dose: 200 mls/hr (units unknown) (unknown) (unknown) (no date) (unknown) (unknown) Last Infusion: 01/15/23 16:51 Dose: 0 mls/hr (units unknown) (unknown) (unknown) (no date) (unknown) (unknown) Last Titration: 01/15/23 16:24 Dose: 10 mg/hr, 10 mls/hr (units unknown) (unknown) (unknown) (no date) (unknown) (unknown) Limitations: no limitations (units unknown) (unknown) (unknown) (no date) (unknown) (unknown) Lipase (23-300) U/L (units unknown) (unknown) (unknown) (no date) (unknown) (unknown) Lipase 367 H (23-300) U/L (units unknown) (unknown) (unknown) (no date) (unknown) (unknown) Lipase Stat (units unknown) (unknown) (unknown) (no date) (unknown) (unknown) Loc: ED (units unknown) (unknown) (unknown) (no date) (unknown) (unknown) Lungs and pleura:? Mild pulmonary vascular congestion is seen.? No definite (units unknown) (unknown) (unknown) (no date) (unknown) (unknown) Lymph # (Auto) (6222-3297) /uL (units unknown) (unknown) (unknown) (no date) (unknown) (unknown) Lymph # (Auto) 1400 (7097-7796) /uL (units unknown) (unknown) (unknown) (no date) (unknown) (unknown) Lymph % (Auto) (25-40) % (units unknown) (unknown) (unknown) (no date) (unknown) (unknown) Lymph % (Auto) 9.0 L (25-40) % (units unknown) (unknown) (unknown) (no date) (unknown) (unknown) MCH (26-34) PG (units unknown) (unknown) (unknown) (no date) (unknown) (unknown) MCH 29.3 (26-34) PG (units unknown) (unknown) (unknown) (no date) (unknown) (unknown) MCHC (30-36) % (units unknown) (unknown) (unknown) (no date) (unknown) (unknown) MCHC 33.8 (30-36) % (units unknown) (unknown) (unknown) (no date) (unknown) (unknown) MCV (80-100) fL (units unknown) (unknown) (unknown) (no date) (unknown) (unknown) MCV 86.5 (80-100) fL (units unknown) (unknown) (unknown) (no date) (unknown) (unknown) MDM - Arrhythmia/Palpitat ions (units unknown) (unknown) (unknown) (no date) (unknown) (unknown) MDM Narrative (units unknown) (unknown) (unknown) (no date) (unknown) (unknown) MR#: [id number] (units unknown) (unknown) (unknown) (no date) (unknown) (unknown) Magnesium (1.6-2.3) mg/dL (units unknown) (unknown) (unknown) (no date) (unknown) (unknown) Magnesium 1.2 L (1.6-2.3) mg/dL (units unknown) (unknown) (unknown) (no date) (unknown) (unknown) Magnesium Stat (units unknown) (unknown) (unknown) (no date) (unknown) (unknown) Jasmine who accepts for admission for AFib RVR with suspected possible sepsis (units unknown) (unknown) (unknown) (no date) (unknown) (unknown) Mediastinum:? Mediastinal contours appear normal.? Heart size is enlarged.? (units unknown) (unknown) (unknown) (no date) (unknown) (unknown) Medical History (Updated 01/15/23 @ 17:33 by Gayla Nunez DO) (units unknown) (unknown) (unknown) (no date) (unknown) (unknown) Medical decision making narrative: (units unknown) (unknown) (unknown) (no date) (unknown) (unknown) Medication Instructions Recorded Confirmed (units unknown) (unknown) (unknown) (no date) (unknown) (unknown) Medication Instructions Recorded (units unknown) (unknown) (unknown) (no date) (unknown) (unknown) Mode of arrival: Family Vehicle (units unknown) (unknown) (unknown) (no date) (unknown) (unknown) [place] # (Auto) (0-900) /uL (units unknown) (unknown) (unknown) (no date) (unknown) (unknown) [place] # (Auto) 1500 H (0-900) /uL (units unknown) (unknown) (unknown) (no date) (unknown) (unknown) [place] % (Auto) (3-14) % (units unknown) (unknown) (unknown) (no date) (unknown) (unknown) [place] % (Auto) 9.2 (3-14) % (units unknown) (unknown) (unknown) (no date) (unknown) (unknown) Mother No significant medical problems (units unknown) (unknown) (unknown) (no date) (unknown) (unknown) NECK: Supple, full range of motion (units unknown) (unknown) (unknown) (no date) (unknown) (unknown) NEUROLOGICAL: Cranial nerves II through XII grossly intact. Moving all (units unknown) (unknown) (unknown) (no date) (unknown) (unknown) NT-Pro-B Natriuret Pep (<125) pg/mL (units unknown) (unknown) (unknown) (no date) (unknown) (unknown) NT-Pro-B Natriuret Pep 2810 H (<125) pg/mL (units unknown) (unknown) (unknown) (no date) (unknown) (unknown) Narrative (units unknown) (unknown) (unknown) (no date) (unknown) (unknown) Neuropathy of both feet (units unknown) (unknown) (unknown) (no date) (unknown) (unknown) Neut # (Auto) (2926-1829) /uL (units unknown) (unknown) (unknown) (no date) (unknown) (unknown) Neut # (Auto) 61413 H (2384-8632) /uL (units unknown) (unknown) (unknown) (no date) (unknown) (unknown) Neut % (Auto) (50-75) % (units unknown) (unknown) (unknown) (no date) (unknown) (unknown) Neut % (Auto) 81.5 H (50-75) % (units unknown) (unknown) (unknown) (no date) (unknown) (unknown) ONE (units unknown) (unknown) (unknown) (no date) (unknown) (unknown) Ondansetron HCl (Ondansetron 4 Mg/2 Ml Inj) 4 mg IV Q6HR PRN (units unknown) (unknown) (unknown) (no date) (unknown) (unknown) Ordered: (units unknown) (unknown) (unknown) (no date) (unknown) (unknown) Ordering Provider: Gayla Nunez D.O. (units unknown) (unknown) (unknown) (no date) (unknown) (unknown) Orders (units unknown) (unknown) (unknown) (no date) (unknown) (unknown) Oxygen Delivery Method Room Air (units unknown) (unknown) (unknown) (no date) (unknown) (unknown) Oxygen Delivery Method (units unknown) (unknown) (unknown) (no date) (unknown) (unknown) PRN Reason: Nausea And Vomiting (units unknown) (unknown) (unknown) (no date) (unknown) (unknown) PROCEDURE:? XR CHEST 1V (units unknown) (unknown) (unknown) (no date) (unknown) (unknown) PT (10.1-12.7) SECONDS (units unknown) (unknown) (unknown) (no date) (unknown) (unknown) PT 19.2 H (10.1-12.7) SECONDS (units unknown) (unknown) (unknown) (no date) (unknown) (unknown) PTT Partial Thromboplastin Chuckie Stat (units unknown) (unknown) (unknown) (no date) (unknown) (unknown) Patient Disposition: Admitted As Inpatient (units unknown) (unknown) (unknown) (no date) (unknown) (unknown) Patient History (units unknown) (unknown) (unknown) (no date) (unknown) (unknown) Patient denies active tobacco, alcohol or illicit drug use. He is accompanied (units unknown) (unknown) (unknown) (no date) (unknown) (unknown) Patient on recheck appears improved. Heart rates improved blood pressures (units unknown) (unknown) (unknown) (no date) (unknown) (unknown) Patient: Arvind Brock MR#: [id number] (units unknown) (unknown) (unknown) (no date) (unknown) (unknown) Patient: Arvind Brock (units unknown) (unknown) (unknown) (no date) (unknown) (unknown) Plt Count (150-400) X103/uL (units unknown) (unknown) (unknown) (no date) (unknown) (unknown) Plt Count 162 (150-400) X103/uL (units unknown) (unknown) (unknown) (no date) (unknown) (unknown) Potassium (3.4-5.1) mmol/L (units unknown) (unknown) (unknown) (no date) (unknown) (unknown) Potassium 4.5 (3.4-5.1) mmol/L (units unknown) (unknown) (unknown) (no date) (unknown) (unknown) Previous Rx's (units unknown) (unknown) (unknown) (no date) (unknown) (unknown) Prior ECG tracings: available for review (units unknown) (unknown) (unknown) (no date) (unknown) (unknown) Procalcitonin (<0.5) ng/mL (units unknown) (unknown) (unknown) (no date) (unknown) (unknown) Procalcitonin 0.50 (<0.5) ng/mL (units unknown) (unknown) (unknown) (no date) (unknown) (unknown) Procalcitonin Stat (units unknown) (unknown) (unknown) (no date) (unknown) (unknown) Procedure: XR chest 1V (units unknown) (unknown) (unknown) (no date) (unknown) (unknown) Prothrombin Time INR Stat (units unknown) (unknown) (unknown) (no date) (unknown) (unknown) Pulse Oximetry 93 93 (units unknown) (unknown) (unknown) (no date) (unknown) (unknown) Pulse Oximetry 93 94 (units unknown) (unknown) (unknown) (no date) (unknown) (unknown) Pulse Oximetry 93 (units unknown) (unknown) (unknown) (no date) (unknown) (unknown) Pulse Oximetry 94 95 (units unknown) (unknown) (unknown) (no date) (unknown) (unknown) Pulse Oximetry 94 (units unknown) (unknown) (unknown) (no date) (unknown) (unknown) Pulse Oximetry 95 01/15/23 15:26 (units unknown) (unknown) (unknown) (no date) (unknown) (unknown) Pulse Oximetry 95 95 (units unknown) (unknown) (unknown) (no date) (unknown) (unknown) Pulse Oximetry 95 96 (units unknown) (unknown) (unknown) (no date) (unknown) (unknown) Pulse Oximetry 95 (units unknown) (unknown) (unknown) (no date) (unknown) (unknown) Pulse Oximetry 96 (units unknown) (unknown) (unknown) (no date) (unknown) (unknown) Pulse Oximetry 97 98 (units unknown) (unknown) (unknown) (no date) (unknown) (unknown) Pulse Oximetry 99 95 93 (units unknown) (unknown) (unknown) (no date) (unknown) (unknown) Pulse Rate 100 H 104 H (units unknown) (unknown) (unknown) (no date) (unknown) (unknown) Pulse Rate 104 H 108 H (units unknown) (unknown) (unknown) (no date) (unknown) (unknown) Pulse Rate 106 H 110 H (units unknown) (unknown) (unknown) (no date) (unknown) (unknown) Pulse Rate 106 H (units unknown) (unknown) (unknown) (no date) (unknown) (unknown) Pulse Rate 108 H 105 H (units unknown) (unknown) (unknown) (no date) (unknown) (unknown) Pulse Rate 108 H (units unknown) (unknown) (unknown) (no date) (unknown) (unknown) Pulse Rate 109 H (units unknown) (unknown) (unknown) (no date) (unknown) (unknown) Pulse Rate 110 H 109 H (units unknown) (unknown) (unknown) (no date) (unknown) (unknown) Pulse Rate 112 H (units unknown) (unknown) (unknown) (no date) (unknown) (unknown) Pulse Rate 115 H 111 H (units unknown) (unknown) (unknown) (no date) (unknown) (unknown) Pulse Rate 116 H (units unknown) (unknown) (unknown) (no date) (unknown) (unknown) Pulse Rate 123 H 118 H (units unknown) (unknown) (unknown) (no date) (unknown) (unknown) Pulse Rate 135 H (units unknown) (unknown) (unknown) (no date) (unknown) (unknown) Pulse Rate 138 H 126 H (units unknown) (unknown) (unknown) (no date) (unknown) (unknown) Pulse Rate 172 H 01/15/23 15:26 (units unknown) (unknown) (unknown) (no date) (unknown) (unknown) Pulse Rate 209 H 172 H 172 H (units unknown) (unknown) (unknown) (no date) (unknown) (unknown) RBC (4.5-5.9) X106/uL (units unknown) (unknown) (unknown) (no date) (unknown) (unknown) RBC 5.00 (4.5-5.9) X106/uL (units unknown) (unknown) (unknown) (no date) (unknown) (unknown) RDW (11.6-14.8) % (units unknown) (unknown) (unknown) (no date) (unknown) (unknown) RDW 15.3 H (11.6-14.8) % (units unknown) (unknown) (unknown) (no date) (unknown) (unknown) RESPIRATORY: Breath sounds equal bilaterally, no wheezes rales or rhonchi. No (units unknown) (unknown) (unknown) (no date) (unknown) (unknown) ROS Unobtainable: All systems reviewed + are unremarkable except as noted in HPI (units unknown) (unknown) (unknown) (no date) (unknown) (unknown) RSV (PCR) (Negative) (units unknown) (unknown) (unknown) (no date) (unknown) (unknown) RSV (PCR) Negative (Negative) (units unknown) (unknown) (unknown) (no date) (unknown) (unknown) Radiologist's Impresson: (units unknown) (unknown) (unknown) (no date) (unknown) (unknown) Related Data (units unknown) (unknown) (unknown) (no date) (unknown) (unknown) Respiratory Rate 30 H 51 H 53 H (units unknown) (unknown) (unknown) (no date) (unknown) (unknown) Respiratory Rate 31 H 32 H (units unknown) (unknown) (unknown) (no date) (unknown) (unknown) Respiratory Rate 31 H (units unknown) (unknown) (unknown) (no date) (unknown) (unknown) Respiratory Rate 34 H 34 H (units unknown) (unknown) (unknown) (no date) (unknown) (unknown) Respiratory Rate 34 H (units unknown) (unknown) (unknown) (no date) (unknown) (unknown) Respiratory Rate 35 H 36 H (units unknown) (unknown) (unknown) (no date) (unknown) (unknown) Respiratory Rate 35 H (units unknown) (unknown) (unknown) (no date) (unknown) (unknown) Respiratory Rate 37 H 39 H (units unknown) (unknown) (unknown) (no date) (unknown) (unknown) Respiratory Rate 37 H (units unknown) (unknown) (unknown) (no date) (unknown) (unknown) Respiratory Rate 38 H 37 H (units unknown) (unknown) (unknown) (no date) (unknown) (unknown) Respiratory Rate 38 H (units unknown) (unknown) (unknown) (no date) (unknown) (unknown) Respiratory Rate 39 H (units unknown) (unknown) (unknown) (no date) (unknown) (unknown) Respiratory Rate 40 H 39 H (units unknown) (unknown) (unknown) (no date) (unknown) (unknown) Respiratory Rate 43 H 44 H (units unknown) (unknown) (unknown) (no date) (unknown) (unknown) Respiratory Rate 47 H (units unknown) (unknown) (unknown) (no date) (unknown) (unknown) Respiratory Rate 51 H 01/15/23 15:26 (units unknown) (unknown) (unknown) (no date) (unknown) (unknown) Respiratory Rate 51 H (units unknown) (unknown) (unknown) (no date) (unknown) (unknown) Review of Systems (units unknown) (unknown) (unknown) (no date) (unknown) (unknown) SARS-CoV-2 (PCR) (Negative) (units unknown) (unknown) (unknown) (no date) (unknown) (unknown) SARS-CoV-2 (PCR) Negative (Negative) (units unknown) (unknown) (unknown) (no date) (unknown) (unknown) DEIDRA; Protocol (units unknown) (unknown) (unknown) (no date) (unknown) (unknown) SKIN: Warm, diaphoretic, no petechiae, no rashes or lesions. (units unknown) (unknown) (unknown) (no date) (unknown) (unknown) Signed By: (units unknown) (unknown) (unknown) (no date) (unknown) (unknown) Signed (units unknown) (unknown) (unknown) (no date) (unknown) (unknown) Smoking Status: Never smoker (units unknown) (unknown) (unknown) (no date) (unknown) (unknown) Social History (units unknown) (unknown) (unknown) (no date) (unknown) (unknown) Sodium (137-145) mmol/L (units unknown) (unknown) (unknown) (no date) (unknown) (unknown) Sodium 128 L (137-145) mmol/L (units unknown) (unknown) (unknown) (no date) (unknown) (unknown) Sodium Chloride (Normal Saline 0.9%) 1,000 mls @ 1,000 mls/hr IV BOLUS ONE (units unknown) (unknown) (unknown) (no date) (unknown) (unknown) Source: patient, family, RN notes reviewed and old records reviewed (units unknown) (unknown) (unknown) (no date) (unknown) (unknown) Stated Complaint: vomiting/shaking/fe trell (units unknown) (unknown) (unknown) (no date) (unknown) (unknown) Stop: 01/15/23 15:28 (units unknown) (unknown) (unknown) (no date) (unknown) (unknown) Stop: 01/15/23 15:38 (units unknown) (unknown) (unknown) (no date) (unknown) (unknown) Stop: 01/15/23 15:59 (units unknown) (unknown) (unknown) (no date) (unknown) (unknown) Stop: 01/15/23 16:29 (units unknown) (unknown) (unknown) (no date) (unknown) (unknown) Stop: 01/15/23 18:41 (units unknown) (unknown) (unknown) (no date) (unknown) (unknown) Stop: 01/15/23 18:52 (units unknown) (unknown) (unknown) (no date) (unknown) (unknown) Substance Use Type: does not use (units unknown) (unknown) (unknown) (no date) (unknown) (unknown) Surgical History (units unknown) (unknown) (unknown) (no date) (unknown) (unknown) Surgical changes and devices:? None.? (units unknown) (unknown) (unknown) (no date) (unknown) (unknown) TECHNIQUE:? One view of the chest was acquired.? (units unknown) (unknown) (unknown) (no date) (unknown) (unknown) Temperature 101 F H (units unknown) (unknown) (unknown) (no date) (unknown) (unknown) Temperature 101.1 F H (units unknown) (unknown) (unknown) (no date) (unknown) (unknown) Temperature (units unknown) (unknown) (unknown) (no date) (unknown) (unknown) The high probability of a clinically significant, sudden or life threatening (units unknown) (unknown) (unknown) (no date) (unknown) (unknown) This is a 67-year-old male who presents with AFib RVR but is also febrile and (units unknown) (unknown) (unknown) (no date) (unknown) (unknown) This is a 67-year-old male with known history of atrial fibrillation who is (units unknown) (unknown) (unknown) (no date) (unknown) (unknown) Time Seen by Provider: 01/15/23 15:29 (units unknown) (unknown) (unknown) (no date) (unknown) (unknown) Total Bilirubin (0.2-1.3) mg/dL (units unknown) (unknown) (unknown) (no date) (unknown) (unknown) Total Bilirubin 1.2 (0.2-1.3) mg/dL (units unknown) (unknown) (unknown) (no date) (unknown) (unknown) Total Creatine Kinase (55-170) U/L (units unknown) (unknown) (unknown) (no date) (unknown) (unknown) Total Creatine Kinase 133 (55-170) U/L (units unknown) (unknown) (unknown) (no date) (unknown) (unknown) Total Critical Care Time: 40 (units unknown) (unknown) (unknown) (no date) (unknown) (unknown) Total Protein (6.3-8.2) g/dL (units unknown) (unknown) (unknown) (no date) (unknown) (unknown) Total Protein 7.7 (6.3-8.2) g/dL (units unknown) (unknown) (unknown) (no date) (unknown) (unknown) Troponin + CK Cardiac Panel Stat (units unknown) (unknown) (unknown) (no date) (unknown) (unknown) Troponin I (0.01-0.034) ng/mL (units unknown) (unknown) (unknown) (no date) (unknown) (unknown) Troponin I 0.016 (0.01-0.034) ng/mL (units unknown) (unknown) (unknown) (no date) (unknown) (unknown) U-100 Insulin) (units unknown) (unknown) (unknown) (no date) (unknown) (unknown) UA Complete [Urinalysis and Microscopic] Stat (units unknown) (unknown) (unknown) (no date) (unknown) (unknown) Vancomycin HCl/Dextrose (Vancomycin) 1,500 mg in 300 mls @ 200 mls/hr IV NOW (units unknown) (unknown) (unknown) (no date) (unknown) (unknown) Vital Signs - 8 hr (units unknown) (unknown) (unknown) (no date) (unknown) (unknown) Vital Signs (units unknown) (unknown) (unknown) (no date) (unknown) (unknown) Vital signs: (units unknown) (unknown) (unknown) (no date) (unknown) (unknown) WBC (4.5-11.0) X103/uL (units unknown) (unknown) (unknown) (no date) (unknown) (unknown) WBC 15.9 H (4.5-11.0) X103/uL (units unknown) (unknown) (unknown) (no date) (unknown) (unknown) XR chest 1V Stat (units unknown) (unknown) (unknown) (no date) (unknown) (unknown) XRay Report (units unknown) (unknown) (unknown) (no date) (unknown) (unknown) [Embedded Image Not Available] (units unknown) (unknown) (unknown) (no date) (unknown) (unknown) [x] Data Review and interpretation (units unknown) (unknown) (unknown) (no date) (unknown) (unknown) [x] Documentation (units unknown) (unknown) (unknown) (no date) (unknown) (unknown) [x] Medication orders and management (units unknown) (unknown) (unknown) (no date) (unknown) (unknown) [x] Patient assessment and monitoring of vital signs (units unknown) (unknown) (unknown) (no date) (unknown) (unknown) accessory muscle use. Mild tachypnea. (units unknown) (unknown) (unknown) (no date) (unknown) (unknown) additional 10 mg dose and plan for drip. Patient was also given fluids size (units unknown) (unknown) (unknown) (no date) (unknown) (unknown) alcohol intake frequency: other (units unknown) (unknown) (unknown) (no date) (unknown) (unknown) alcohol intake: never (units unknown) (unknown) (unknown) (no date) (unknown) (unknown) and below (units unknown) (unknown) (unknown) (no date) (unknown) (unknown) any new swelling in his extremities. His states he has not been telling (units unknown) (unknown) (unknown) (no date) (unknown) (unknown) appear (units unknown) (unknown) (unknown) (no date) (unknown) (unknown) attention, intervention and personal management. The aggregate critical care (units unknown) (unknown) (unknown) (no date) (unknown) (unknown) but no clear source of infection patient does meet SIRS criteria. Patient was (units unknown) (unknown) (unknown) (no date) (unknown) (unknown) by his who brought him today who states he refused transport via EMS and (units unknown) (unknown) (unknown) (no date) (unknown) (unknown) call lab and they are currently running it. Chest x-ray does not show clear (units unknown) (unknown) (unknown) (no date) (unknown) (unknown) can anticoagulated for cardioversion. Sodium is 128 chloride 96 with a CO2 of (units unknown) (unknown) (unknown) (no date) (unknown) (unknown) catheterization or stress test no ablation. He denies any prior surgeries. He (units unknown) (unknown) (unknown) (no date) (unknown) (unknown) currently but has been only 3 weeks since he was discharged so he is not fully (units unknown) (unknown) (unknown) (no date) (unknown) (unknown) denies chest pain or shortness of breath he does state he is had some fever, he (units unknown) (unknown) (unknown) (no date) (unknown) (unknown) denies diarrhea constipation he denies dysuria urgency or frequency. He denies (units unknown) (unknown) (unknown) (no date) (unknown) (unknown) department. Patient states his primary care is through the [facility]. He does (units unknown) (unknown) (unknown) (no date) (unknown) (unknown) deterioration of the [cardiac, resp] system(s) required my full and direct (units unknown) (unknown) (unknown) (no date) (unknown) (unknown) does answer questions appropriately but appears to feel unwell (units unknown) (unknown) (unknown) (no date) (unknown) (unknown) does have a leukocytosis he is febrile was given Tylenol for his fever he has a (units unknown) (unknown) (unknown) (no date) (unknown) (unknown) does have some depression in 1 and aVL. Patient has prior from 12/18/2022 with (units unknown) (unknown) (unknown) (no date) (unknown) (unknown) dyslipidemia. According to patient's she is unsure if he is taking his (units unknown) (unknown) (unknown) (no date) (unknown) (unknown) effusion (units unknown) (unknown) (unknown) (no date) (unknown) (unknown) extremities (units unknown) (unknown) (unknown) (no date) (unknown) (unknown) fevers generally feeling unwell he states his heart rate has been fast. He (units unknown) (unknown) (unknown) (no date) (unknown) (unknown) focal (units unknown) (unknown) (unknown) (no date) (unknown) (unknown) for fluid overload, patient had an EF on his last admission a month ago that was (units unknown) (unknown) (unknown) (no date) (unknown) (unknown) gallops. No JVD. Trace edema bilaterally. (units unknown) (unknown) (unknown) (no date) (unknown) (unknown) given a L bolus but discussed I did not give a 30 cc/kilos as he is higher risk (units unknown) (unknown) (unknown) (no date) (unknown) (unknown) glucose is 250 to come Mag slightly low at 1.2 with a negative troponin and BNP (units unknown) (unknown) (unknown) (no date) (unknown) (unknown) had several days of fever. Suspect his AFib RVR is a response to fever and (units unknown) (unknown) (unknown) (no date) (unknown) (unknown) he is able to tell that he did note his left leg looks kind of red and the toes. (units unknown) (unknown) (unknown) (no date) (unknown) (unknown) her about any symptoms but she has noted he is had fevers for the last 5 days (units unknown) (unknown) (unknown) (no date) (unknown) (unknown) his drip was bumped up from 5 mics for his diltiazem drip. Heart rate has been (units unknown) (unknown) (unknown) (no date) (unknown) (unknown) household members: spouse (units unknown) (unknown) (unknown) (no date) (unknown) (unknown) improvement in rate down to 120s with a systolic pressure of 170s, was given (units unknown) (unknown) (unknown) (no date) (unknown) (unknown) infection. Patient denies other symptoms currently he is diaphoretic but has a (units unknown) (unknown) (unknown) (no date) (unknown) (unknown) infiltrate.? No pleural effusions or pneumothorax.? (units unknown) (unknown) (unknown) (no date) (unknown) (unknown) insulin glargine 100 unit/mL 12 unit SUBCUT BEDTIME 05/11/20 01/15/23 (units unknown) (unknown) (unknown) (no date) (unknown) (unknown) intact (units unknown) (unknown) (unknown) (no date) (unknown) (unknown) intermittently low, he states he feels much better he is no longer diaphoretic (units unknown) (unknown) (unknown) (no date) (unknown) (unknown) leftward shift, INR is elevated 1.7 so it likely is taking his anticoagulation (units unknown) (unknown) (unknown) (no date) (unknown) (unknown) leg (units unknown) (unknown) (unknown) (no date) (unknown) (unknown) lisinopril 5 mg tablet 5 mg PO DAILY 90 days #90 tabs 12/21/22 (units unknown) (unknown) (unknown) (no date) (unknown) (unknown) medications regularly. He was admitted for AFib RVR in November and was not (units unknown) (unknown) (unknown) (no date) (unknown) (unknown) metformin 500 mg tablet 500 mg PO BID 05/11/20 01/15/23 (units unknown) (unknown) (unknown) (no date) (unknown) (unknown) metoprolol succinate 50 mg 50 mg PO BID 90 days #180 tabs 12/21/22 (units unknown) (unknown) (unknown) (no date) (unknown) (unknown) moist mucous membranes (units unknown) (unknown) (unknown) (no date) (unknown) (unknown) more consistently 115th 290s, his blood pressure has tolerated this well. He (units unknown) (unknown) (unknown) (no date) (unknown) (unknown) not follow with a passenger service representative regularly. (units unknown) (unknown) (unknown) (no date) (unknown) (unknown) occupational status: employed (units unknown) (unknown) (unknown) (no date) (unknown) (unknown) of 2800 lipase 367 pro callus 0.5. Patient has not given a urine sample yet, (units unknown) (unknown) (unknown) (no date) (unknown) (unknown) on his way here to the hospital. He denies abdominal back or flank pain. He (units unknown) (unknown) (unknown) (no date) (unknown) (unknown) or pneumothorax. (units unknown) (unknown) (unknown) (no date) (unknown) (unknown) piperacillin [From Zosyn] Allergy Severe Uticaria Verified 05/11/20 22:50 (units unknown) (unknown) (unknown) (no date) (unknown) (unknown) procedures but includes the following: (units unknown) (unknown) (unknown) (no date) (unknown) (unknown) quadrants. No guarding or rebound, rigidity, no mass (units unknown) (unknown) (unknown) (no date) (unknown) (unknown) right leg likely has a cellulitis as his source. Patient was covered initiating (units unknown) (unknown) (unknown) (no date) (unknown) (unknown) rivaroxaban 20 mg tablet (Xarelto) 20 mg PO QPM 05/11/20 01/15/23 (units unknown) (unknown) (unknown) (no date) (unknown) (unknown) she is been arguing has him for several days to get him to come to the emergency (units unknown) (unknown) (unknown) (no date) (unknown) (unknown) similar appearing ST segments that time his rate was 100 but was in AFib. (units unknown) (unknown) (unknown) (no date) (unknown) (unknown) since Sunday. Patient denies any prior cardiac interventions no heart (units unknown) (unknown) (unknown) (no date) (unknown) (unknown) source of infection exam does not give me a clear source. I spoke with (units unknown) (unknown) (unknown) (no date) (unknown) (unknown) states he is allergic to a penicillin type medication appears to be Zosyn. (units unknown) (unknown) (unknown) (no date) (unknown) (unknown) states he is felt unwell in general. No syncope. He is had nausea and vomiting (units unknown) (unknown) (unknown) (no date) (unknown) (unknown) subcutaneous solution (Lantus (units unknown) (unknown) (unknown) (no date) (unknown) (unknown) supposed to be anticoagulated on Xarelto, diabetes hypertension and (units unknown) (unknown) (unknown) (no date) (unknown) (unknown) suspect sepsis has part of his current problems, patient is currently on 10 mics (units unknown) (unknown) (unknown) (no date) (unknown) (unknown) tablet,extended release 24 hr (units unknown) (unknown) (unknown) (no date) (unknown) (unknown) taking medications regularly at that time. Patient presents with 5 days of (units unknown) (unknown) (unknown) (no date) (unknown) (unknown) tazobactam [From Zosyn] Allergy Severe Uticaria Verified 05/11/20 22:50 (units unknown) (unknown) (unknown) (no date) (unknown) (unknown) temperature of 101? F as well. Was given Tylenol, IV diltiazem with some (units unknown) (unknown) (unknown) (no date) (unknown) (unknown) time was [] minutes. This time is in addition to time spent performing reported (units unknown) (unknown) (unknown) (no date) (unknown) (unknown) unremarkable.? (units unknown) (unknown) (unknown) (no date) (unknown) (unknown) while on the phone. Asked lab to draw reflex on patient as he is now upstairs. (units unknown) (unknown) (unknown) (no date) (unknown) (unknown) with vancomycin. (units unknown) (unknown) Result panel 423 (unknown) (no date) (unknown) (unknown) Not Detected (units unknown) (unknown) Result panel 424 (unknown) (no date) (unknown) (unknown) 1.0 mmol/l (unknown) Result panel 425 (unknown) (no date) (unknown) (unknown) (no value) (units unknown) (unknown) (unknown) (no date) (unknown) (unknown) [id number] (units unknown) (unknown) (unknown) (no date) (unknown) (unknown) 01/15/23 (units unknown) (unknown) (unknown) (no date) (unknown) (unknown) [address] [place] [address] (units unknown) (unknown) (unknown) (no date) (unknown) (unknown) Accession Number: [id number] (units unknown) (unknown) (unknown) (no date) (unknown) (unknown) Age/Sex: 67 / M Date of Service: (units unknown) (unknown) (unknown) (no date) (unknown) (unknown) [place] [address] (units unknown) (unknown) (unknown) (no date) (unknown) (unknown) Anterior tibial artery/dorsalis pedis: 59 cm/sec, with monophasic flow. (units unknown) (unknown) (unknown) (no date) (unknown) (unknown) Approved by: Efrem Saavedra M.D. on 01/16/2023 at 9:59 (units unknown) (unknown) (unknown) (no date) (unknown) (unknown) COMPARISON: None. (units unknown) (unknown) (unknown) (no date) (unknown) (unknown) Color and pulse Doppler interrogation was performed of the left lower extremity (units unknown) (unknown) (unknown) (no date) (unknown) (unknown) Common femoral artery: 143 cm/sec, with biphasic flow. (units unknown) (unknown) (unknown) (no date) (unknown) (unknown) : 1955 Acct:[id number] (units unknown) (unknown) (unknown) (no date) (unknown) (unknown) Deep femoral artery: 71 cm/sec, with biphasic flow. (units unknown) (unknown) (unknown) (no date) (unknown) (unknown) Distal superficial femoral artery: 114 cm/sec, with biphasic flow. (units unknown) (unknown) (unknown) (no date) (unknown) (unknown) Dorsalis pedis: 100.6 cm per sec, monophasic (units unknown) (unknown) (unknown) (no date) (unknown) (unknown) FINDINGS: (units unknown) (unknown) (unknown) (no date) (unknown) (unknown) Roberson-scale imaging description: Atherosclerotic irregularity (units unknown) (unknown) (unknown) (no date) (unknown) (unknown) IMPRESSION: (units unknown) (unknown) (unknown) (no date) (unknown) (unknown) INDICATIONS: SEPESIS. DIABETES. CELLULITIS. (units unknown) (unknown) (unknown) (no date) (unknown) (unknown) [facility] (units unknown) (unknown) (unknown) (no date) (unknown) (unknown) Loc: ICU [id number] (units unknown) (unknown) (unknown) (no date) (unknown) (unknown) Mid superficial femoral artery: 119 cm/sec, with biphasic flow. (units unknown) (unknown) (unknown) (no date) (unknown) (unknown) Ordering Provider: Piper Brannon (units unknown) (unknown) (unknown) (no date) (unknown) (unknown) PROCEDURE: US ARTERIAL DUPLEX LE LT (units unknown) (unknown) (unknown) (no date) (unknown) (unknown) Patient: Arvind Brock MR#: [id number] (units unknown) (unknown) (unknown) (no date) (unknown) (unknown) Popliteal artery: 140 cm/sec, with monophasic flow. (units unknown) (unknown) (unknown) (no date) (unknown) (unknown) Posterior tibial artery: 86 cm/sec, with monophasic flow. (units unknown) (unknown) (unknown) (no date) (unknown) (unknown) Procedure: US arterial duplex LE LT (units unknown) (unknown) (unknown) (no date) (unknown) (unknown) Proximal superficial femoral artery: 122 cm/sec, with biphasic flow. (units unknown) (unknown) (unknown) (no date) (unknown) (unknown) Signed (units unknown) (unknown) (unknown) (no date) (unknown) (unknown) TECHNIQUE: (units unknown) (unknown) (unknown) (no date) (unknown) (unknown) Ultrasound Report (units unknown) (unknown) (unknown) (no date) (unknown) (unknown) Velocity and waveforms suggest peripheral vascular disease without focal (units unknown) (unknown) (unknown) (no date) (unknown) (unknown) arterial (units unknown) (unknown) (unknown) (no date) (unknown) (unknown) occlusion or (units unknown) (unknown) (unknown) (no date) (unknown) (unknown) significant stenosis (units unknown) (unknown) (unknown) (no date) (unknown) (unknown) system, with image documentation. (units unknown) (unknown) Result panel 426 (unknown) (no date) (unknown) (unknown) (no value) (units unknown) (unknown) (unknown) (no date) (unknown) (unknown) (past 8 hours): (units unknown) (unknown) (unknown) (no date) (unknown) (unknown) [id number] (units unknown) (unknown) (unknown) (no date) (unknown) (unknown) 01/15/23 01/15/23 01/15/23 (units unknown) (unknown) (unknown) (no date) (unknown) (unknown) 01/15/23 01/15/23 (units unknown) (unknown) (unknown) (no date) (unknown) (unknown) 01/15/23 15:25 (units unknown) (unknown) (unknown) (no date) (unknown) (unknown) 01/15/23 (units unknown) (unknown) (unknown) (no date) (unknown) (unknown) 15:25 15:25 15:25 (units unknown) (unknown) (unknown) (no date) (unknown) (unknown) 15:25 15:25 15:49 (units unknown) (unknown) (unknown) (no date) (unknown) (unknown) 15:26 01/15/23 (units unknown) (unknown) (unknown) (no date) (unknown) (unknown) 15:27 01/15/23 (units unknown) (unknown) (unknown) (no date) (unknown) (unknown) 15:27 (units unknown) (unknown) (unknown) (no date) (unknown) (unknown) 15:29 01/15/23 (units unknown) (unknown) (unknown) (no date) (unknown) (unknown) 15:30 01/15/23 (units unknown) (unknown) (unknown) (no date) (unknown) (unknown) 15:30 (units unknown) (unknown) (unknown) (no date) (unknown) (unknown) 15:35 01/15/23 (units unknown) (unknown) (unknown) (no date) (unknown) (unknown) 15:40 (units unknown) (unknown) (unknown) (no date) (unknown) (unknown) 15:45 01/15/23 (units unknown) (unknown) (unknown) (no date) (unknown) (unknown) 15:48 01/15/23 (units unknown) (unknown) (unknown) (no date) (unknown) (unknown) 15:48 (units unknown) (unknown) (unknown) (no date) (unknown) (unknown) 15:50 01/15/23 (units unknown) (unknown) (unknown) (no date) (unknown) (unknown) 15:55 01/15/23 (units unknown) (unknown) (unknown) (no date) (unknown) (unknown) 15:55 (units unknown) (unknown) (unknown) (no date) (unknown) (unknown) 16:00 01/15/23 (units unknown) (unknown) (unknown) (no date) (unknown) (unknown) 16:00 (units unknown) (unknown) (unknown) (no date) (unknown) (unknown) 16:05 01/15/23 (units unknown) (unknown) (unknown) (no date) (unknown) (unknown) 16:10 01/15/23 (units unknown) (unknown) (unknown) (no date) (unknown) (unknown) 16:10 (units unknown) (unknown) (unknown) (no date) (unknown) (unknown) 16:15 01/15/23 (units unknown) (unknown) (unknown) (no date) (unknown) (unknown) 16:15 (units unknown) (unknown) (unknown) (no date) (unknown) (unknown) 16:20 01/15/23 (units unknown) (unknown) (unknown) (no date) (unknown) (unknown) 16:25 01/15/23 (units unknown) (unknown) (unknown) (no date) (unknown) (unknown) 16:25 (units unknown) (unknown) (unknown) (no date) (unknown) (unknown) 16:30 01/15/23 (units unknown) (unknown) (unknown) (no date) (unknown) (unknown) 16:30 (units unknown) (unknown) (unknown) (no date) (unknown) (unknown) 16:35 01/15/23 (units unknown) (unknown) (unknown) (no date) (unknown) (unknown) 16:40 01/15/23 (units unknown) (unknown) (unknown) (no date) (unknown) (unknown) 16:45 01/15/23 (units unknown) (unknown) (unknown) (no date) (unknown) (unknown) 16:45 (units unknown) (unknown) (unknown) (no date) (unknown) (unknown) 16:50 01/15/23 (units unknown) (unknown) (unknown) (no date) (unknown) (unknown) 16:50 (units unknown) (unknown) (unknown) (no date) (unknown) (unknown) 16:51 (units unknown) (unknown) (unknown) (no date) (unknown) (unknown) 16:55 01/15/23 (units unknown) (unknown) (unknown) (no date) (unknown) (unknown) 17:00 01/15/23 (units unknown) (unknown) (unknown) (no date) (unknown) (unknown) 17:00 (units unknown) (unknown) (unknown) (no date) (unknown) (unknown) 17:05 01/15/23 (units unknown) (unknown) (unknown) (no date) (unknown) (unknown) 17:05 (units unknown) (unknown) (unknown) (no date) (unknown) (unknown) 17:10 01/15/23 (units unknown) (unknown) (unknown) (no date) (unknown) (unknown) 17:15 01/15/23 (units unknown) (unknown) (unknown) (no date) (unknown) (unknown) 17:15 (units unknown) (unknown) (unknown) (no date) (unknown) (unknown) 17:20 01/15/23 (units unknown) (unknown) (unknown) (no date) (unknown) (unknown) 17:20 (units unknown) (unknown) (unknown) (no date) (unknown) (unknown) 17:25 01/15/23 (units unknown) (unknown) (unknown) (no date) (unknown) (unknown) 17:30 01/15/23 (units unknown) (unknown) (unknown) (no date) (unknown) (unknown) 17:30 (units unknown) (unknown) (unknown) (no date) (unknown) (unknown) 17:35 01/15/23 (units unknown) (unknown) (unknown) (no date) (unknown) (unknown) 17:35 (units unknown) (unknown) (unknown) (no date) (unknown) (unknown) 17:40 01/15/23 (units unknown) (unknown) (unknown) (no date) (unknown) (unknown) 17:45 01/15/23 (units unknown) (unknown) (unknown) (no date) (unknown) (unknown) 17:45 (units unknown) (unknown) (unknown) (no date) (unknown) (unknown) 17:50 01/15/23 (units unknown) (unknown) (unknown) (no date) (unknown) (unknown) 17:50 (units unknown) (unknown) (unknown) (no date) (unknown) (unknown) 17:55 01/15/23 (units unknown) (unknown) (unknown) (no date) (unknown) (unknown) 17:55 (units unknown) (unknown) (unknown) (no date) (unknown) (unknown) 18:07 (units unknown) (unknown) (unknown) (no date) (unknown) (unknown) 18:11 01/15/23 (units unknown) (unknown) (unknown) (no date) (unknown) (unknown) 18:15 01/15/23 (units unknown) (unknown) (unknown) (no date) (unknown) (unknown) 18:15 19:10 (units unknown) (unknown) (unknown) (no date) (unknown) (unknown) 18:20 (units unknown) (unknown) (unknown) (no date) (unknown) (unknown) 18:25 01/15/23 (units unknown) (unknown) (unknown) (no date) (unknown) (unknown) 18:26 01/15/23 (units unknown) (unknown) (unknown) (no date) (unknown) (unknown) 18:30 01/15/23 (units unknown) (unknown) (unknown) (no date) (unknown) (unknown) 18:35 (units unknown) (unknown) (unknown) (no date) (unknown) (unknown) 18:40 01/15/23 (units unknown) (unknown) (unknown) (no date) (unknown) (unknown) 18:45 01/15/23 (units unknown) (unknown) (unknown) (no date) (unknown) (unknown) 18:50 (units unknown) (unknown) (unknown) (no date) (unknown) (unknown) ALT 29 (units unknown) (unknown) (unknown) (no date) (unknown) (unknown) ALT (units unknown) (unknown) (unknown) (no date) (unknown) (unknown) APTT 33 (units unknown) (unknown) (unknown) (no date) (unknown) (unknown) APTT (units unknown) (unknown) (unknown) (no date) (unknown) (unknown) AST 32 (units unknown) (unknown) (unknown) (no date) (unknown) (unknown) AST (units unknown) (unknown) (unknown) (no date) (unknown) (unknown) According to patient's she is unsure if he is taking his medications (units unknown) (unknown) (unknown) (no date) (unknown) (unknown) Afib (units unknown) (unknown) (unknown) (no date) (unknown) (unknown) Age/Sex: 67 / M (units unknown) (unknown) (unknown) (no date) (unknown) (unknown) Albumin 4.1 (units unknown) (unknown) (unknown) (no date) (unknown) (unknown) Albumin (units unknown) (unknown) (unknown) (no date) (unknown) (unknown) Albumin/Globulin Ratio 1.1 (units unknown) (unknown) (unknown) (no date) (unknown) (unknown) Albumin/Globulin Ratio (units unknown) (unknown) (unknown) (no date) (unknown) (unknown) Alkaline Phosphatase 97 (units unknown) (unknown) (unknown) (no date) (unknown) (unknown) Alkaline Phosphatase (units unknown) (unknown) (unknown) (no date) (unknown) (unknown) Allergies (units unknown) (unknown) (unknown) (no date) (unknown) (unknown) Allergy/AdvReac Type Severity Reaction Status Date / Time (units unknown) (unknown) (unknown) (no date) (unknown) (unknown) BUN 24 H (units unknown) (unknown) (unknown) (no date) (unknown) (unknown) BUN (units unknown) (unknown) (unknown) (no date) (unknown) (unknown) BUN/Creatinine Ratio 21.4 (units unknown) (unknown) (unknown) (no date) (unknown) (unknown) BUN/Creatinine Ratio (units unknown) (unknown) (unknown) (no date) (unknown) (unknown) Baso # (Auto) 0 (units unknown) (unknown) (unknown) (no date) (unknown) (unknown) Baso # (Auto) (units unknown) (unknown) (unknown) (no date) (unknown) (unknown) Baso % (Auto) 0.3 (units unknown) (unknown) (unknown) (no date) (unknown) (unknown) Baso % (Auto) (units unknown) (unknown) (unknown) (no date) (unknown) (unknown) Been Physically Hurt or No (units unknown) (unknown) (unknown) (no date) (unknown) (unknown) Blood Pressure 102/59 L (units unknown) (unknown) (unknown) (no date) (unknown) (unknown) Blood Pressure 105/57 L (units unknown) (unknown) (unknown) (no date) (unknown) (unknown) Blood Pressure 106/58 L (units unknown) (unknown) (unknown) (no date) (unknown) (unknown) Blood Pressure 107/53 L (units unknown) (unknown) (unknown) (no date) (unknown) (unknown) Blood Pressure 108/58 L 104/54 L (units unknown) (unknown) (unknown) (no date) (unknown) (unknown) Blood Pressure 113/55 L 114/58 L (units unknown) (unknown) (unknown) (no date) (unknown) (unknown) Blood Pressure 113/58 L 108/59 L (units unknown) (unknown) (unknown) (no date) (unknown) (unknown) Blood Pressure 114/56 L 96/54 L (units unknown) (unknown) (unknown) (no date) (unknown) (unknown) Blood Pressure 115/58 L (units unknown) (unknown) (unknown) (no date) (unknown) (unknown) Blood Pressure 119/66 130/56 L (units unknown) (unknown) (unknown) (no date) (unknown) (unknown) Blood Pressure 120/56 L 126/61 (units unknown) (unknown) (unknown) (no date) (unknown) (unknown) Blood Pressure 122/57 L (units unknown) (unknown) (unknown) (no date) (unknown) (unknown) Blood Pressure 123/72 117/56 L (units unknown) (unknown) (unknown) (no date) (unknown) (unknown) Blood Pressure 125/58 L (units unknown) (unknown) (unknown) (no date) (unknown) (unknown) Blood Pressure 125/63 (units unknown) (unknown) (unknown) (no date) (unknown) (unknown) Blood Pressure 126/58 L (units unknown) (unknown) (unknown) (no date) (unknown) (unknown) Blood Pressure 127/57 L (units unknown) (unknown) (unknown) (no date) (unknown) (unknown) Blood Pressure 143/63 H (units unknown) (unknown) (unknown) (no date) (unknown) (unknown) Blood Pressure 156/60 H 122/58 L (units unknown) (unknown) (unknown) (no date) (unknown) (unknown) Blood Pressure 172/92 H (units unknown) (unknown) (unknown) (no date) (unknown) (unknown) Blood Pressure 183/84 H 140/69 (units unknown) (unknown) (unknown) (no date) (unknown) (unknown) Blood Pressure 193/91 H (units unknown) (unknown) (unknown) (no date) (unknown) (unknown) Blood Pressure 98/54 L (units unknown) (unknown) (unknown) (no date) (unknown) (unknown) Blood Pressure (units unknown) (unknown) (unknown) (no date) (unknown) (unknown) CK-MB (CK-2) 1.09 (units unknown) (unknown) (unknown) (no date) (unknown) (unknown) CK-MB (CK-2) Rel Index 0.8 L (units unknown) (unknown) (unknown) (no date) (unknown) (unknown) CK-MB (CK-2) Rel Index (units unknown) (unknown) (unknown) (no date) (unknown) (unknown) CK-MB (CK-2) (units unknown) (unknown) (unknown) (no date) (unknown) (unknown) Calcium 8.9 (units unknown) (unknown) (unknown) (no date) (unknown) (unknown) Calcium (units unknown) (unknown) (unknown) (no date) (unknown) (unknown) Carbon Dioxide 19 L (units unknown) (unknown) (unknown) (no date) (unknown) (unknown) Carbon Dioxide (units unknown) (unknown) (unknown) (no date) (unknown) (unknown) Chief complaint: vomiting/shaking/fe trell (units unknown) (unknown) (unknown) (no date) (unknown) (unknown) Chloride 96 L (units unknown) (unknown) (unknown) (no date) (unknown) (unknown) Chloride (units unknown) (unknown) (unknown) (no date) (unknown) (unknown) Creatinine 1.12 (units unknown) (unknown) (unknown) (no date) (unknown) (unknown) Creatinine (units unknown) (unknown) (unknown) (no date) (unknown) (unknown) : 1955 Acct:[id number] (units unknown) (unknown) (unknown) (no date) (unknown) (unknown) Date Patient Seen: 01/15/23 (units unknown) (unknown) (unknown) (no date) (unknown) (unknown) Date of Service: 01/15/23 (units unknown) (unknown) (unknown) (no date) (unknown) (unknown) Deep Vein Thrombosis/Pulmonar y Embolism Present on Admission: No (units unknown) (unknown) (unknown) (no date) (unknown) (unknown) Diabetes mellitus (units unknown) (unknown) (unknown) (no date) (unknown) (unknown) Diabetes (units unknown) (unknown) (unknown) (no date) (unknown) (unknown) Environment (units unknown) (unknown) (unknown) (no date) (unknown) (unknown) Eos # (Auto) 0 (units unknown) (unknown) (unknown) (no date) (unknown) (unknown) Eos # (Auto) (units unknown) (unknown) (unknown) (no date) (unknown) (unknown) Eos % (Auto) 0.0 L (units unknown) (unknown) (unknown) (no date) (unknown) (unknown) Eos % (Auto) (units unknown) (unknown) (unknown) (no date) (unknown) (unknown) Estimated GFR > 60 (units unknown) (unknown) (unknown) (no date) (unknown) (unknown) Estimated GFR (units unknown) (unknown) (unknown) (no date) (unknown) (unknown) Exam (units unknown) (unknown) (unknown) (no date) (unknown) (unknown) Family + Social History (units unknown) (unknown) (unknown) (no date) (unknown) (unknown) Family History (units unknown) (unknown) (unknown) (no date) (unknown) (unknown) Father Smoker (units unknown) (unknown) (unknown) (no date) (unknown) (unknown) Feels Safe in Current Yes (units unknown) (unknown) (unknown) (no date) (unknown) (unknown) Sunday.? Patient denies any prior cardiac interventions no heart catheterization (units unknown) (unknown) (unknown) (no date) (unknown) (unknown) Globulin 3.6 (units unknown) (unknown) (unknown) (no date) (unknown) (unknown) Globulin (units unknown) (unknown) (unknown) (no date) (unknown) (unknown) Glucose 252 H (units unknown) (unknown) (unknown) (no date) (unknown) (unknown) Glucose (units unknown) (unknown) (unknown) (no date) (unknown) (unknown) Hct 43.2 (units unknown) (unknown) (unknown) (no date) (unknown) (unknown) Hct (units unknown) (unknown) (unknown) (no date) (unknown) (unknown) Heart attack (units unknown) (unknown) (unknown) (no date) (unknown) (unknown) Hgb 14.6 (units unknown) (unknown) (unknown) (no date) (unknown) (unknown) Hgb (units unknown) (unknown) (unknown) (no date) (unknown) (unknown) History + Physical Report (units unknown) (unknown) (unknown) (no date) (unknown) (unknown) History of Present Illness (units unknown) (unknown) (unknown) (no date) (unknown) (unknown) History of hernia repair (units unknown) (unknown) (unknown) (no date) (unknown) (unknown) History of neck surgery (units unknown) (unknown) (unknown) (no date) (unknown) (unknown) Home Medications and Allergies (units unknown) (unknown) (unknown) (no date) (unknown) (unknown) Home Medications (units unknown) (unknown) (unknown) (no date) (unknown) (unknown) Hyperlipidemia (units unknown) (unknown) (unknown) (no date) (unknown) (unknown) Hypertension (units unknown) (unknown) (unknown) (no date) (unknown) (unknown) INR 1.7 H (units unknown) (unknown) (unknown) (no date) (unknown) (unknown) INR (units unknown) (unknown) (unknown) (no date) (unknown) (unknown) Influenza A (RT-PCR) Flu a negative (units unknown) (unknown) (unknown) (no date) (unknown) (unknown) Influenza A (RT-PCR) (units unknown) (unknown) (unknown) (no date) (unknown) (unknown) Influenza B (RT-PCR) Flu b negative (units unknown) (unknown) (unknown) (no date) (unknown) (unknown) Influenza B (RT-PCR) (units unknown) (unknown) (unknown) (no date) (unknown) (unknown) [address] [id number] (units unknown) (unknown) (unknown) (no date) (unknown) (unknown) Arvind Brock is a 67yo M with PMH of A-fib, DM2, HTN, HLD, and neuropathy ? (units unknown) (unknown) (unknown) (no date) (unknown) (unknown) Laboratory Results - last 24 hr (units unknown) (unknown) (unknown) (no date) (unknown) (unknown) Labs (units unknown) (unknown) (unknown) (no date) (unknown) (unknown) Labs: (units unknown) (unknown) (unknown) (no date) (unknown) (unknown) Lactate 1.0 (units unknown) (unknown) (unknown) (no date) (unknown) (unknown) Lactate 3.2 H (units unknown) (unknown) (unknown) (no date) (unknown) (unknown) Lactate (units unknown) (unknown) (unknown) (no date) (unknown) (unknown) Lipase 367 H (units unknown) (unknown) (unknown) (no date) (unknown) (unknown) Lipase (units unknown) (unknown) (unknown) (no date) (unknown) (unknown) Lymph # (Auto) 1400 (units unknown) (unknown) (unknown) (no date) (unknown) (unknown) Lymph # (Auto) (units unknown) (unknown) (unknown) (no date) (unknown) (unknown) Lymph % (Auto) 9.0 L (units unknown) (unknown) (unknown) (no date) (unknown) (unknown) Lymph % (Auto) (units unknown) (unknown) (unknown) (no date) (unknown) (unknown) MCH 29.3 (units unknown) (unknown) (unknown) (no date) (unknown) (unknown) MCH (units unknown) (unknown) (unknown) (no date) (unknown) (unknown) MCHC 33.8 (units unknown) (unknown) (unknown) (no date) (unknown) (unknown) MCHC (units unknown) (unknown) (unknown) (no date) (unknown) (unknown) MCV 86.5 (units unknown) (unknown) (unknown) (no date) (unknown) (unknown) MCV (units unknown) (unknown) (unknown) (no date) (unknown) (unknown) Magnesium 1.2 L (units unknown) (unknown) (unknown) (no date) (unknown) (unknown) Magnesium (units unknown) (unknown) (unknown) (no date) (unknown) (unknown) Medical History (Updated 01/15/23 @ 17:33 by Gayla Nunez DO) (units unknown) (unknown) (unknown) (no date) (unknown) (unknown) Medication Instructions Recorded Confirmed Type (units unknown) (unknown) (unknown) (no date) (unknown) (unknown) Meds (units unknown) (unknown) (unknown) (no date) (unknown) (unknown) [place] # (Auto) 1500 H (units unknown) (unknown) (unknown) (no date) (unknown) (unknown) [place] # (Auto) (units unknown) (unknown) (unknown) (no date) (unknown) (unknown) [place] % (Auto) 9.2 (units unknown) (unknown) (unknown) (no date) (unknown) (unknown) [place] % (Auto) (units unknown) (unknown) (unknown) (no date) (unknown) (unknown) Mother No significant medical problems (units unknown) (unknown) (unknown) (no date) (unknown) (unknown) NT-Pro-B Natriuret Pep 2810 H (units unknown) (unknown) (unknown) (no date) (unknown) (unknown) NT-Pro-B Natriuret Pep (units unknown) (unknown) (unknown) (no date) (unknown) (unknown) Narrative: (units unknown) (unknown) (unknown) (no date) (unknown) (unknown) Nasal Screen MRSA (PCR) Not detected (units unknown) (unknown) (unknown) (no date) (unknown) (unknown) Nasal Screen MRSA (PCR) (units unknown) (unknown) (unknown) (no date) (unknown) (unknown) Neuropathy of both feet (units unknown) (unknown) (unknown) (no date) (unknown) (unknown) Neut # (Auto) 01966 H (units unknown) (unknown) (unknown) (no date) (unknown) (unknown) Neut # (Auto) (units unknown) (unknown) (unknown) (no date) (unknown) (unknown) Neut % (Auto) 81.5 H (units unknown) (unknown) (unknown) (no date) (unknown) (unknown) Neut % (Auto) (units unknown) (unknown) (unknown) (no date) (unknown) (unknown) Objective (units unknown) (unknown) (unknown) (no date) (unknown) (unknown) Oxygen Delivery Method Room Air (units unknown) (unknown) (unknown) (no date) (unknown) (unknown) Oxygen Delivery Method (units unknown) (unknown) (unknown) (no date) (unknown) (unknown) Oxygen Flow Rate 0 (units unknown) (unknown) (unknown) (no date) (unknown) (unknown) Oxygen Flow Rate (units unknown) (unknown) (unknown) (no date) (unknown) (unknown) PT 19.2 H (units unknown) (unknown) (unknown) (no date) (unknown) (unknown) PT (units unknown) (unknown) (unknown) (no date) (unknown) (unknown) Patient History (units unknown) (unknown) (unknown) (no date) (unknown) (unknown) Patient: Arvind Brock MR#: [id number] (units unknown) (unknown) (unknown) (no date) (unknown) (unknown) Plt Count 162 (units unknown) (unknown) (unknown) (no date) (unknown) (unknown) Plt Count (units unknown) (unknown) (unknown) (no date) (unknown) (unknown) Potassium 4.5 (units unknown) (unknown) (unknown) (no date) (unknown) (unknown) Potassium (units unknown) (unknown) (unknown) (no date) (unknown) (unknown) Prior Living [facility]rangements House (units unknown) (unknown) (unknown) (no date) (unknown) (unknown) Procalcitonin 0.50 (units unknown) (unknown) (unknown) (no date) (unknown) (unknown) Procalcitonin (units unknown) (unknown) (unknown) (no date) (unknown) (unknown) Provider: Piper Brannon- (units unknown) (unknown) (unknown) (no date) (unknown) (unknown) Pulse Oximetry 93 93 (units unknown) (unknown) (unknown) (no date) (unknown) (unknown) Pulse Oximetry 93 94 (units unknown) (unknown) (unknown) (no date) (unknown) (unknown) Pulse Oximetry 93 (units unknown) (unknown) (unknown) (no date) (unknown) (unknown) Pulse Oximetry 94 94 (units unknown) (unknown) (unknown) (no date) (unknown) (unknown) Pulse Oximetry 94 95 95 (units unknown) (unknown) (unknown) (no date) (unknown) (unknown) Pulse Oximetry 94 95 (units unknown) (unknown) (unknown) (no date) (unknown) (unknown) Pulse Oximetry 94 (units unknown) (unknown) (unknown) (no date) (unknown) (unknown) Pulse Oximetry 95 91 (units unknown) (unknown) (unknown) (no date) (unknown) (unknown) Pulse Oximetry 95 94 94 (units unknown) (unknown) (unknown) (no date) (unknown) (unknown) Pulse Oximetry 95 95 (units unknown) (unknown) (unknown) (no date) (unknown) (unknown) Pulse Oximetry 95 96 (units unknown) (unknown) (unknown) (no date) (unknown) (unknown) Pulse Oximetry 95 (units unknown) (unknown) (unknown) (no date) (unknown) (unknown) Pulse Oximetry 96 (units unknown) (unknown) (unknown) (no date) (unknown) (unknown) Pulse Oximetry 97 98 (units unknown) (unknown) (unknown) (no date) (unknown) (unknown) Pulse Oximetry 99 95 93 (units unknown) (unknown) (unknown) (no date) (unknown) (unknown) Pulse Oximetry 99 (units unknown) (unknown) (unknown) (no date) (unknown) (unknown) Pulse Rate 100 H 104 H (units unknown) (unknown) (unknown) (no date) (unknown) (unknown) Pulse Rate 101 H (units unknown) (unknown) (unknown) (no date) (unknown) (unknown) Pulse Rate 102 H 105 H (units unknown) (unknown) (unknown) (no date) (unknown) (unknown) Pulse Rate 102 H (units unknown) (unknown) (unknown) (no date) (unknown) (unknown) Pulse Rate 104 H 108 H (units unknown) (unknown) (unknown) (no date) (unknown) (unknown) Pulse Rate 104 H (units unknown) (unknown) (unknown) (no date) (unknown) (unknown) Pulse Rate 106 H 110 H (units unknown) (unknown) (unknown) (no date) (unknown) (unknown) Pulse Rate 106 H (units unknown) (unknown) (unknown) (no date) (unknown) (unknown) Pulse Rate 107 H 107 H (units unknown) (unknown) (unknown) (no date) (unknown) (unknown) Pulse Rate 108 H 105 H (units unknown) (unknown) (unknown) (no date) (unknown) (unknown) Pulse Rate 108 H (units unknown) (unknown) (unknown) (no date) (unknown) (unknown) Pulse Rate 109 H (units unknown) (unknown) (unknown) (no date) (unknown) (unknown) Pulse Rate 110 H 109 H (units unknown) (unknown) (unknown) (no date) (unknown) (unknown) Pulse Rate 112 H (units unknown) (unknown) (unknown) (no date) (unknown) (unknown) Pulse Rate 115 H 111 H (units unknown) (unknown) (unknown) (no date) (unknown) (unknown) Pulse Rate 116 H (units unknown) (unknown) (unknown) (no date) (unknown) (unknown) Pulse Rate 123 H 118 H (units unknown) (unknown) (unknown) (no date) (unknown) (unknown) Pulse Rate 135 H (units unknown) (unknown) (unknown) (no date) (unknown) (unknown) Pulse Rate 138 H 126 H (units unknown) (unknown) (unknown) (no date) (unknown) (unknown) Pulse Rate 209 H 172 H 172 H (units unknown) (unknown) (unknown) (no date) (unknown) (unknown) Pulse Rate 92 H 100 H 95 H (units unknown) (unknown) (unknown) (no date) (unknown) (unknown) Pulse Rate 93 H 89 90 (units unknown) (unknown) (unknown) (no date) (unknown) (unknown) Pulse Rate 95 H 86 86 (units unknown) (unknown) (unknown) (no date) (unknown) (unknown) Quality (units unknown) (unknown) (unknown) (no date) (unknown) (unknown) RBC 5.00 (units unknown) (unknown) (unknown) (no date) (unknown) (unknown) RBC (units unknown) (unknown) (unknown) (no date) (unknown) (unknown) RDW 15.3 H (units unknown) (unknown) (unknown) (no date) (unknown) (unknown) RDW (units unknown) (unknown) (unknown) (no date) (unknown) (unknown) RSV (PCR) Negative (units unknown) (unknown) (unknown) (no date) (unknown) (unknown) RSV (PCR) (units unknown) (unknown) (unknown) (no date) (unknown) (unknown) Respiratory Rate 30 H 51 H 53 H (units unknown) (unknown) (unknown) (no date) (unknown) (unknown) Respiratory Rate 30 H (units unknown) (unknown) (unknown) (no date) (unknown) (unknown) Respiratory Rate 31 H 32 H (units unknown) (unknown) (unknown) (no date) (unknown) (unknown) Respiratory Rate 31 H 34 H (units unknown) (unknown) (unknown) (no date) (unknown) (unknown) Respiratory Rate 31 H (units unknown) (unknown) (unknown) (no date) (unknown) (unknown) Respiratory Rate 32 H (units unknown) (unknown) (unknown) (no date) (unknown) (unknown) Respiratory Rate 34 H 32 H 28 H (units unknown) (unknown) (unknown) (no date) (unknown) (unknown) Respiratory Rate 34 H 34 H (units unknown) (unknown) (unknown) (no date) (unknown) (unknown) Respiratory Rate 34 H (units unknown) (unknown) (unknown) (no date) (unknown) (unknown) Respiratory Rate 35 H 31 H 37 H (units unknown) (unknown) (unknown) (no date) (unknown) (unknown) Respiratory Rate 35 H 33 H (units unknown) (unknown) (unknown) (no date) (unknown) (unknown) Respiratory Rate 35 H 36 H (units unknown) (unknown) (unknown) (no date) (unknown) (unknown) Respiratory Rate 35 H (units unknown) (unknown) (unknown) (no date) (unknown) (unknown) Respiratory Rate 36 H 35 H (units unknown) (unknown) (unknown) (no date) (unknown) (unknown) Respiratory Rate 36 H (units unknown) (unknown) (unknown) (no date) (unknown) (unknown) Respiratory Rate 37 H 39 H (units unknown) (unknown) (unknown) (no date) (unknown) (unknown) Respiratory Rate 37 H (units unknown) (unknown) (unknown) (no date) (unknown) (unknown) Respiratory Rate 38 H 37 H (units unknown) (unknown) (unknown) (no date) (unknown) (unknown) Respiratory Rate 38 H (units unknown) (unknown) (unknown) (no date) (unknown) (unknown) Respiratory Rate 39 H (units unknown) (unknown) (unknown) (no date) (unknown) (unknown) Respiratory Rate 40 H 39 H (units unknown) (unknown) (unknown) (no date) (unknown) (unknown) Respiratory Rate 43 H 44 H (units unknown) (unknown) (unknown) (no date) (unknown) (unknown) Respiratory Rate 47 H (units unknown) (unknown) (unknown) (no date) (unknown) (unknown) Respiratory Rate 51 H (units unknown) (unknown) (unknown) (no date) (unknown) (unknown) SARS-CoV-2 (PCR) Negative (units unknown) (unknown) (unknown) (no date) (unknown) (unknown) SARS-CoV-2 (PCR) (units unknown) (unknown) (unknown) (no date) (unknown) (unknown) Safety + Behavioral: (units unknown) (unknown) (unknown) (no date) (unknown) (unknown) Signed By: (units unknown) (unknown) (unknown) (no date) (unknown) (unknown) Smoking Status Never smoker (units unknown) (unknown) (unknown) (no date) (unknown) (unknown) Social History: (units unknown) (unknown) (unknown) (no date) (unknown) (unknown) Sodium 128 L (units unknown) (unknown) (unknown) (no date) (unknown) (unknown) Sodium (units unknown) (unknown) (unknown) (no date) (unknown) (unknown) Substance Use Type does not use (units unknown) (unknown) (unknown) (no date) (unknown) (unknown) Surgical History (units unknown) (unknown) (unknown) (no date) (unknown) (unknown) Temperature 100.9 F H (units unknown) (unknown) (unknown) (no date) (unknown) (unknown) Temperature 101 F H (units unknown) (unknown) (unknown) (no date) (unknown) (unknown) Temperature 101.1 F H (units unknown) (unknown) (unknown) (no date) (unknown) (unknown) Temperature (units unknown) (unknown) (unknown) (no date) (unknown) (unknown) Threatened By a Person (units unknown) (unknown) (unknown) (no date) (unknown) (unknown) Time Patient Seen: 20:27 (units unknown) (unknown) (unknown) (no date) (unknown) (unknown) Tobacco + Substance use: (units unknown) (unknown) (unknown) (no date) (unknown) (unknown) Total Bilirubin 1.2 (units unknown) (unknown) (unknown) (no date) (unknown) (unknown) Total Bilirubin (units unknown) (unknown) (unknown) (no date) (unknown) (unknown) Total Creatine Kinase 133 (units unknown) (unknown) (unknown) (no date) (unknown) (unknown) Total Creatine Kinase (units unknown) (unknown) (unknown) (no date) (unknown) (unknown) Total Protein 7.7 (units unknown) (unknown) (unknown) (no date) (unknown) (unknown) Total Protein (units unknown) (unknown) (unknown) (no date) (unknown) (unknown) Troponin I 0.016 (units unknown) (unknown) (unknown) (no date) (unknown) (unknown) Troponin I (units unknown) (unknown) (unknown) (no date) (unknown) (unknown) U-100 Insulin) (units unknown) (unknown) (unknown) (no date) (unknown) (unknown) VTE (units unknown) (unknown) (unknown) (no date) (unknown) (unknown) Vital Signs (units unknown) (unknown) (unknown) (no date) (unknown) (unknown) WBC 15.9 H (units unknown) (unknown) (unknown) (no date) (unknown) (unknown) WBC (units unknown) (unknown) (unknown) (no date) (unknown) (unknown) [Embedded Image Not Available] (units unknown) (unknown) (unknown) (no date) (unknown) (unknown) active tobacco, alcohol or illicit drug use.? He is accompanied by his who (units unknown) (unknown) (unknown) (no date) (unknown) (unknown) alcohol intake frequency other (units unknown) (unknown) (unknown) (no date) (unknown) (unknown) alcohol intake never (units unknown) (unknown) (unknown) (no date) (unknown) (unknown) allergic to a penicillin type medication appears to be Zosyn.? Patient denies (units unknown) (unknown) (unknown) (no date) (unknown) (unknown) any symptoms but she has noted he is had fevers for the last 5 days since (units unknown) (unknown) (unknown) (no date) (unknown) (unknown) arguing has him for several days to get him to come to the emergency (units unknown) (unknown) (unknown) (no date) (unknown) (unknown) brought him today who states he refused transport via EMS and she is been (units unknown) (unknown) (unknown) (no date) (unknown) (unknown) chest pain or shortness of breath he does state he is had some fever, he states (units unknown) (unknown) (unknown) (no date) (unknown) (unknown) department.? [facility] He does (units unknown) (unknown) (unknown) (no date) (unknown) (unknown) diarrhea constipation he denies dysuria urgency or frequency.? He denies any new (units unknown) (unknown) (unknown) (no date) (unknown) (unknown) generally feeling unwell he states his heart rate has been fast.? He denies (units unknown) (unknown) (unknown) (no date) (unknown) (unknown) he is felt unwell in general.? No syncope.? He is had nausea and vomiting on his (units unknown) (unknown) (unknown) (no date) (unknown) (unknown) household members spouse (units unknown) (unknown) (unknown) (no date) (unknown) (unknown) insulin glargine 100 unit/mL 12 unit SUBCUT BEDTIME 05/11/20 01/15/23 History (units unknown) (unknown) (unknown) (no date) (unknown) (unknown) lisinopril 5 mg tablet 5 mg PO DAILY 90 days #90 tabs 12/21/22 01/15/23 Rx (units unknown) (unknown) (unknown) (no date) (unknown) (unknown) medications regularly at that time.? Patient presents with 5 days of fevers (units unknown) (unknown) (unknown) (no date) (unknown) (unknown) metformin 500 mg tablet 500 mg PO BID 05/11/20 01/15/23 History (units unknown) (unknown) (unknown) (no date) (unknown) (unknown) metoprolol succinate 50 mg 50 mg PO BID 90 days #180 tabs 12/21/22 01/15/23 Rx (units unknown) (unknown) (unknown) (no date) (unknown) (unknown) not follow with a passenger service representative regularly. (units unknown) (unknown) (unknown) (no date) (unknown) (unknown) or stress test no ablation.? He denies any prior surgeries.? He states he is (units unknown) (unknown) (unknown) (no date) (unknown) (unknown) piperacillin [From Zosyn] Allergy Severe Uticaria Verified 05/11/20 22:50 (units unknown) (unknown) (unknown) (no date) (unknown) (unknown) regularly.? He was admitted for AFib RVR in November and was not taking (units unknown) (unknown) (unknown) (no date) (unknown) (unknown) rivaroxaban 20 mg tablet (Xarelto) 20 mg PO QPM 05/11/20 01/15/23 History (units unknown) (unknown) (unknown) (no date) (unknown) (unknown) subcutaneous solution (Lantus (units unknown) (unknown) (unknown) (no date) (unknown) (unknown) swelling in his extremities.? His states he has not been telling her about (units unknown) (unknown) (unknown) (no date) (unknown) (unknown) tablet,extended release 24 hr (units unknown) (unknown) (unknown) (no date) (unknown) (unknown) tazobactam [From Zosyn] Allergy Severe Uticaria Verified 05/11/20 22:50 (units unknown) (unknown) (unknown) (no date) (unknown) (unknown) way here to the hospital.? He denies abdominal back or flank pain.? He denies (units unknown) (unknown) Result panel 427 (unknown) (no date) (unknown) (unknown) 12.3 % 4548-4 (unknown) (no date) (unknown) (unknown) 12.3 % (unknown) (unknown) (no date) (unknown) (unknown) 306 mg/dl (unknown) (unknown) (no date) (unknown) (unknown) 306 mg/dl 85512-1 Result panel 428 (unknown) (no date) (unknown) (unknown) -4.0 mmol/l (unknown) (unknown) (no date) (unknown) (unknown) 21 (units unknown) (unknown) (unknown) (no date) (unknown) (unknown) 21 mmol/l (unknown) (unknown) (no date) (unknown) (unknown) 21 mmol/l (unknown) (unknown) (no date) (unknown) (unknown) 30.5 mmhg (unknown) (unknown) (no date) (unknown) (unknown) 34 mmhg (unknown) (unknown) (no date) (unknown) (unknown) 69 % (unknown) (unknown) (no date) (unknown) (unknown) 7.44 (units unknown) (unknown) Result panel 429 (unknown) (no date) (unknown) (unknown) < 10 mg/dl (unknown) (unknown) (no date) (unknown) (unknown) < 10 mg/dl (unknown) Result panel 430 (unknown) (no date) (unknown) (unknown) 1.23 uiu/ml (unknown) Result panel 431 (unknown) (no date) (unknown) (unknown) 0.251 ng/ml (unknown) (unknown) (no date) (unknown) (unknown) 0.251 ng/ml (unknown) Result panel 432 (unknown) (no date) (unknown) (unknown) Not Detected (units unknown) (unknown) (unknown) (no date) (unknown) (unknown) Not Detected (units unknown) (unknown) Result panel 433 (unknown) (no date) (unknown) (unknown) (no value) (units unknown) (unknown) (unknown) (no date) (unknown) (unknown) (past 8 hours): (units unknown) (unknown) (unknown) (no date) (unknown) (unknown) [id number] (units unknown) (unknown) (unknown) (no date) (unknown) (unknown) 01/15/23 01/15/23 01/15/23 (units unknown) (unknown) (unknown) (no date) (unknown) (unknown) 01/15/23 01/15/23 (units unknown) (unknown) (unknown) (no date) (unknown) (unknown) 01/15/23 15:25 (units unknown) (unknown) (unknown) (no date) (unknown) (unknown) 01/15/23 (units unknown) (unknown) (unknown) (no date) (unknown) (unknown) 15.9, newt 13,000, mono 1500 procalcitonin 0.5, initial lactate 3.2, repeat 1. (units unknown) (unknown) (unknown) (no date) (unknown) (unknown) 15:25 15:25 15:25 (units unknown) (unknown) (unknown) (no date) (unknown) (unknown) 15:25 15:25 15:49 (units unknown) (unknown) (unknown) (no date) (unknown) (unknown) 15:26 01/15/23 (units unknown) (unknown) (unknown) (no date) (unknown) (unknown) 15:27 01/15/23 (units unknown) (unknown) (unknown) (no date) (unknown) (unknown) 15:27 (units unknown) (unknown) (unknown) (no date) (unknown) (unknown) 15:29 01/15/23 (units unknown) (unknown) (unknown) (no date) (unknown) (unknown) 15:30 01/15/23 (units unknown) (unknown) (unknown) (no date) (unknown) (unknown) 15:30 (units unknown) (unknown) (unknown) (no date) (unknown) (unknown) 15:35 01/15/23 (units unknown) (unknown) (unknown) (no date) (unknown) (unknown) 15:40 (units unknown) (unknown) (unknown) (no date) (unknown) (unknown) 15:45 01/15/23 (units unknown) (unknown) (unknown) (no date) (unknown) (unknown) 15:48 01/15/23 (units unknown) (unknown) (unknown) (no date) (unknown) (unknown) 15:48 (units unknown) (unknown) (unknown) (no date) (unknown) (unknown) 15:50 01/15/23 (units unknown) (unknown) (unknown) (no date) (unknown) (unknown) 15:55 01/15/23 (units unknown) (unknown) (unknown) (no date) (unknown) (unknown) 15:55 (units unknown) (unknown) (unknown) (no date) (unknown) (unknown) 16:00 01/15/23 (units unknown) (unknown) (unknown) (no date) (unknown) (unknown) 16:00 (units unknown) (unknown) (unknown) (no date) (unknown) (unknown) 16:05 01/15/23 (units unknown) (unknown) (unknown) (no date) (unknown) (unknown) 16:10 01/15/23 (units unknown) (unknown) (unknown) (no date) (unknown) (unknown) 16:10 (units unknown) (unknown) (unknown) (no date) (unknown) (unknown) 16:15 01/15/23 (units unknown) (unknown) (unknown) (no date) (unknown) (unknown) 16:15 (units unknown) (unknown) (unknown) (no date) (unknown) (unknown) 16:20 01/15/23 (units unknown) (unknown) (unknown) (no date) (unknown) (unknown) 16:25 01/15/23 (units unknown) (unknown) (unknown) (no date) (unknown) (unknown) 16:25 (units unknown) (unknown) (unknown) (no date) (unknown) (unknown) 16:30 01/15/23 (units unknown) (unknown) (unknown) (no date) (unknown) (unknown) 16:30 (units unknown) (unknown) (unknown) (no date) (unknown) (unknown) 16:35 01/15/23 (units unknown) (unknown) (unknown) (no date) (unknown) (unknown) 16:40 01/15/23 (units unknown) (unknown) (unknown) (no date) (unknown) (unknown) 16:45 01/15/23 (units unknown) (unknown) (unknown) (no date) (unknown) (unknown) 16:45 (units unknown) (unknown) (unknown) (no date) (unknown) (unknown) 16:50 01/15/23 (units unknown) (unknown) (unknown) (no date) (unknown) (unknown) 16:50 (units unknown) (unknown) (unknown) (no date) (unknown) (unknown) 16:51 (units unknown) (unknown) (unknown) (no date) (unknown) (unknown) 16:55 01/15/23 (units unknown) (unknown) (unknown) (no date) (unknown) (unknown) 17:00 01/15/23 (units unknown) (unknown) (unknown) (no date) (unknown) (unknown) 17:00 (units unknown) (unknown) (unknown) (no date) (unknown) (unknown) 17:05 01/15/23 (units unknown) (unknown) (unknown) (no date) (unknown) (unknown) 17:05 (units unknown) (unknown) (unknown) (no date) (unknown) (unknown) 17:10 01/15/23 (units unknown) (unknown) (unknown) (no date) (unknown) (unknown) 17:15 01/15/23 (units unknown) (unknown) (unknown) (no date) (unknown) (unknown) 17:15 (units unknown) (unknown) (unknown) (no date) (unknown) (unknown) 17:20 01/15/23 (units unknown) (unknown) (unknown) (no date) (unknown) (unknown) 17:20 (units unknown) (unknown) (unknown) (no date) (unknown) (unknown) 17:25 01/15/23 (units unknown) (unknown) (unknown) (no date) (unknown) (unknown) 17:30 01/15/23 (units unknown) (unknown) (unknown) (no date) (unknown) (unknown) 17:30 (units unknown) (unknown) (unknown) (no date) (unknown) (unknown) 17:35 01/15/23 (units unknown) (unknown) (unknown) (no date) (unknown) (unknown) 17:35 (units unknown) (unknown) (unknown) (no date) (unknown) (unknown) 17:40 01/15/23 (units unknown) (unknown) (unknown) (no date) (unknown) (unknown) 17:45 01/15/23 (units unknown) (unknown) (unknown) (no date) (unknown) (unknown) 17:45 (units unknown) (unknown) (unknown) (no date) (unknown) (unknown) 17:50 01/15/23 (units unknown) (unknown) (unknown) (no date) (unknown) (unknown) 17:50 (units unknown) (unknown) (unknown) (no date) (unknown) (unknown) 17:55 01/15/23 (units unknown) (unknown) (unknown) (no date) (unknown) (unknown) 17:55 (units unknown) (unknown) (unknown) (no date) (unknown) (unknown) 18:07 (units unknown) (unknown) (unknown) (no date) (unknown) (unknown) 18:11 01/15/23 (units unknown) (unknown) (unknown) (no date) (unknown) (unknown) 18:15 01/15/23 (units unknown) (unknown) (unknown) (no date) (unknown) (unknown) 18:15 19:10 (units unknown) (unknown) (unknown) (no date) (unknown) (unknown) 18:20 (units unknown) (unknown) (unknown) (no date) (unknown) (unknown) 18:25 01/15/23 (units unknown) (unknown) (unknown) (no date) (unknown) (unknown) 18:26 01/15/23 (units unknown) (unknown) (unknown) (no date) (unknown) (unknown) 18:30 01/15/23 (units unknown) (unknown) (unknown) (no date) (unknown) (unknown) 18:35 (units unknown) (unknown) (unknown) (no date) (unknown) (unknown) 18:40 01/15/23 (units unknown) (unknown) (unknown) (no date) (unknown) (unknown) 18:45 01/15/23 (units unknown) (unknown) (unknown) (no date) (unknown) (unknown) 18:50 (units unknown) (unknown) (unknown) (no date) (unknown) (unknown) 30.5, PO2 34, bicarb 21, TCO2 21, O2 sat 69%, BE negative for, FiO2 21. WBC (units unknown) (unknown) (unknown) (no date) (unknown) (unknown) ALT 29 (units unknown) (unknown) (unknown) (no date) (unknown) (unknown) ALT (units unknown) (unknown) (unknown) (no date) (unknown) (unknown) APTT 33 (units unknown) (unknown) (unknown) (no date) (unknown) (unknown) APTT (units unknown) (unknown) (unknown) (no date) (unknown) (unknown) AST 32 (units unknown) (unknown) (unknown) (no date) (unknown) (unknown) AST (units unknown) (unknown) (unknown) (no date) (unknown) (unknown) Afib (units unknown) (unknown) (unknown) (no date) (unknown) (unknown) Age/Sex: 67 / M (units unknown) (unknown) (unknown) (no date) (unknown) (unknown) Albumin 4.1 (units unknown) (unknown) (unknown) (no date) (unknown) (unknown) Albumin (units unknown) (unknown) (unknown) (no date) (unknown) (unknown) Albumin/Globulin Ratio 1.1 (units unknown) (unknown) (unknown) (no date) (unknown) (unknown) Albumin/Globulin Ratio (units unknown) (unknown) (unknown) (no date) (unknown) (unknown) Alkaline Phosphatase 97 (units unknown) (unknown) (unknown) (no date) (unknown) (unknown) Alkaline Phosphatase (units unknown) (unknown) (unknown) (no date) (unknown) (unknown) Allergies (units unknown) (unknown) (unknown) (no date) (unknown) (unknown) Allergy/AdvReac Type Severity Reaction Status Date / Time (units unknown) (unknown) (unknown) (no date) (unknown) (unknown) At the time of admit continued to have a low-grade fever 100.9, developed (units unknown) (unknown) (unknown) (no date) (unknown) (unknown) BUN 24 H (units unknown) (unknown) (unknown) (no date) (unknown) (unknown) BUN (units unknown) (unknown) (unknown) (no date) (unknown) (unknown) BUN/Creatinine Ratio 21.4 (units unknown) (unknown) (unknown) (no date) (unknown) (unknown) BUN/Creatinine Ratio (units unknown) (unknown) (unknown) (no date) (unknown) (unknown) Baso # (Auto) 0 (units unknown) (unknown) (unknown) (no date) (unknown) (unknown) Baso # (Auto) (units unknown) (unknown) (unknown) (no date) (unknown) (unknown) Baso % (Auto) 0.3 (units unknown) (unknown) (unknown) (no date) (unknown) (unknown) Baso % (Auto) (units unknown) (unknown) (unknown) (no date) (unknown) (unknown) Been Physically Hurt or No (units unknown) (unknown) (unknown) (no date) (unknown) (unknown) Blood Pressure 102/59 L (units unknown) (unknown) (unknown) (no date) (unknown) (unknown) Blood Pressure 105/57 L (units unknown) (unknown) (unknown) (no date) (unknown) (unknown) Blood Pressure 106/58 L (units unknown) (unknown) (unknown) (no date) (unknown) (unknown) Blood Pressure 107/53 L (units unknown) (unknown) (unknown) (no date) (unknown) (unknown) Blood Pressure 108/58 L 104/54 L (units unknown) (unknown) (unknown) (no date) (unknown) (unknown) Blood Pressure 113/55 L 114/58 L (units unknown) (unknown) (unknown) (no date) (unknown) (unknown) Blood Pressure 113/58 L 108/59 L (units unknown) (unknown) (unknown) (no date) (unknown) (unknown) Blood Pressure 114/56 L 96/54 L (units unknown) (unknown) (unknown) (no date) (unknown) (unknown) Blood Pressure 115/58 L (units unknown) (unknown) (unknown) (no date) (unknown) (unknown) Blood Pressure 119/66 130/56 L (units unknown) (unknown) (unknown) (no date) (unknown) (unknown) Blood Pressure 120/56 L 126/61 (units unknown) (unknown) (unknown) (no date) (unknown) (unknown) Blood Pressure 122/57 L (units unknown) (unknown) (unknown) (no date) (unknown) (unknown) Blood Pressure 123/72 117/56 L (units unknown) (unknown) (unknown) (no date) (unknown) (unknown) Blood Pressure 125/58 L (units unknown) (unknown) (unknown) (no date) (unknown) (unknown) Blood Pressure 125/63 (units unknown) (unknown) (unknown) (no date) (unknown) (unknown) Blood Pressure 126/58 L (units unknown) (unknown) (unknown) (no date) (unknown) (unknown) Blood Pressure 127/57 L (units unknown) (unknown) (unknown) (no date) (unknown) (unknown) Blood Pressure 143/63 H (units unknown) (unknown) (unknown) (no date) (unknown) (unknown) Blood Pressure 156/60 H 122/58 L (units unknown) (unknown) (unknown) (no date) (unknown) (unknown) Blood Pressure 172/92 H (units unknown) (unknown) (unknown) (no date) (unknown) (unknown) Blood Pressure 183/84 H 140/69 (units unknown) (unknown) (unknown) (no date) (unknown) (unknown) Blood Pressure 193/91 H (units unknown) (unknown) (unknown) (no date) (unknown) (unknown) Blood Pressure 98/54 L (units unknown) (unknown) (unknown) (no date) (unknown) (unknown) Blood Pressure (units unknown) (unknown) (unknown) (no date) (unknown) (unknown) CK-MB (CK-2) 1.09 (units unknown) (unknown) (unknown) (no date) (unknown) (unknown) CK-MB (CK-2) Rel Index 0.8 L (units unknown) (unknown) (unknown) (no date) (unknown) (unknown) CK-MB (CK-2) Rel Index (units unknown) (unknown) (unknown) (no date) (unknown) (unknown) CK-MB (CK-2) (units unknown) (unknown) (unknown) (no date) (unknown) (unknown) Calcium 8.9 (units unknown) (unknown) (unknown) (no date) (unknown) (unknown) Calcium (units unknown) (unknown) (unknown) (no date) (unknown) (unknown) Carbon Dioxide 19 L (units unknown) (unknown) (unknown) (no date) (unknown) (unknown) Carbon Dioxide (units unknown) (unknown) (unknown) (no date) (unknown) (unknown) Chief complaint: vomiting/shaking/fe trell (units unknown) (unknown) (unknown) (no date) (unknown) (unknown) Chloride 96 L (units unknown) (unknown) (unknown) (no date) (unknown) (unknown) Chloride (units unknown) (unknown) (unknown) (no date) (unknown) (unknown) Creatinine 1.12 (units unknown) (unknown) (unknown) (no date) (unknown) (unknown) Creatinine (units unknown) (unknown) (unknown) (no date) (unknown) (unknown) : 1955 Acct:[id number] (units unknown) (unknown) (unknown) (no date) (unknown) (unknown) Date Patient Seen: 01/15/23 (units unknown) (unknown) (unknown) (no date) (unknown) (unknown) Date of Service: 01/15/23 (units unknown) (unknown) (unknown) (no date) (unknown) (unknown) Deep Vein Thrombosis/Pulmonar y Embolism Present on Admission: No (units unknown) (unknown) (unknown) (no date) (unknown) (unknown) Diabetes mellitus (units unknown) (unknown) (unknown) (no date) (unknown) (unknown) Diabetes (units unknown) (unknown) (unknown) (no date) (unknown) (unknown) Environment (units unknown) (unknown) (unknown) (no date) (unknown) (unknown) Eos # (Auto) 0 (units unknown) (unknown) (unknown) (no date) (unknown) (unknown) Eos # (Auto) (units unknown) (unknown) (unknown) (no date) (unknown) (unknown) Eos % (Auto) 0.0 L (units unknown) (unknown) (unknown) (no date) (unknown) (unknown) Eos % (Auto) (units unknown) (unknown) (unknown) (no date) (unknown) (unknown) Estimated GFR > 60 (units unknown) (unknown) (unknown) (no date) (unknown) (unknown) Estimated GFR (units unknown) (unknown) (unknown) (no date) (unknown) (unknown) Exam (units unknown) (unknown) (unknown) (no date) (unknown) (unknown) Family + Social History (units unknown) (unknown) (unknown) (no date) (unknown) (unknown) Family History (units unknown) (unknown) (unknown) (no date) (unknown) (unknown) Father Smoker (units unknown) (unknown) (unknown) (no date) (unknown) (unknown) Feels Safe in Current Yes (units unknown) (unknown) (unknown) (no date) (unknown) (unknown) Globulin 3.6 (units unknown) (unknown) (unknown) (no date) (unknown) (unknown) Globulin (units unknown) (unknown) (unknown) (no date) (unknown) (unknown) Glucose 252 H (units unknown) (unknown) (unknown) (no date) (unknown) (unknown) Glucose (units unknown) (unknown) (unknown) (no date) (unknown) (unknown) Hct 43.2 (units unknown) (unknown) (unknown) (no date) (unknown) (unknown) Hct (units unknown) (unknown) (unknown) (no date) (unknown) (unknown) Heart attack (units unknown) (unknown) (unknown) (no date) (unknown) (unknown) Hgb 14.6 (units unknown) (unknown) (unknown) (no date) (unknown) (unknown) Hgb (units unknown) (unknown) (unknown) (no date) (unknown) (unknown) History + Physical Report (units unknown) (unknown) (unknown) (no date) (unknown) (unknown) History of Present Illness (units unknown) (unknown) (unknown) (no date) (unknown) (unknown) History of hernia repair (units unknown) (unknown) (unknown) (no date) (unknown) (unknown) History of neck surgery (units unknown) (unknown) (unknown) (no date) (unknown) (unknown) Home Medications and Allergies (units unknown) (unknown) (unknown) (no date) (unknown) (unknown) Home Medications (units unknown) (unknown) (unknown) (no date) (unknown) (unknown) Hyperlipidemia (units unknown) (unknown) (unknown) (no date) (unknown) (unknown) Hypertension (units unknown) (unknown) (unknown) (no date) (unknown) (unknown) INR 1.7 H (units unknown) (unknown) (unknown) (no date) (unknown) (unknown) INR (units unknown) (unknown) (unknown) (no date) (unknown) (unknown) Influenza A (RT-PCR) Flu a negative (units unknown) (unknown) (unknown) (no date) (unknown) (unknown) Influenza A (RT-PCR) (units unknown) (unknown) (unknown) (no date) (unknown) (unknown) Influenza B (RT-PCR) Flu b negative (units unknown) (unknown) (unknown) (no date) (unknown) (unknown) Influenza B (RT-PCR) (units unknown) (unknown) (unknown) (no date) (unknown) (unknown) [address] [address] (units unknown) (unknown) (unknown) (no date) (unknown) (unknown) Arvind Brock is a 67yo M with PMH of A-fib on [place] [id number] with peripheral (units unknown) (unknown) (unknown) (no date) (unknown) (unknown) Laboratory Results - last 24 hr (units unknown) (unknown) (unknown) (no date) (unknown) (unknown) Labs (units unknown) (unknown) (unknown) (no date) (unknown) (unknown) Labs: (units unknown) (unknown) (unknown) (no date) (unknown) (unknown) Lactate 1.0 (units unknown) (unknown) (unknown) (no date) (unknown) (unknown) Lactate 3.2 H (units unknown) (unknown) (unknown) (no date) (unknown) (unknown) Lactate (units unknown) (unknown) (unknown) (no date) (unknown) (unknown) Lipase 367 H (units unknown) (unknown) (unknown) (no date) (unknown) (unknown) Lipase (units unknown) (unknown) (unknown) (no date) (unknown) (unknown) Lymph # (Auto) 1400 (units unknown) (unknown) (unknown) (no date) (unknown) (unknown) Lymph # (Auto) (units unknown) (unknown) (unknown) (no date) (unknown) (unknown) Lymph % (Auto) 9.0 L (units unknown) (unknown) (unknown) (no date) (unknown) (unknown) Lymph % (Auto) (units unknown) (unknown) (unknown) (no date) (unknown) (unknown) MCH 29.3 (units unknown) (unknown) (unknown) (no date) (unknown) (unknown) MCH (units unknown) (unknown) (unknown) (no date) (unknown) (unknown) MCHC 33.8 (units unknown) (unknown) (unknown) (no date) (unknown) (unknown) MCHC (units unknown) (unknown) (unknown) (no date) (unknown) (unknown) MCV 86.5 (units unknown) (unknown) (unknown) (no date) (unknown) (unknown) MCV (units unknown) (unknown) (unknown) (no date) (unknown) (unknown) Magnesium 1.2 L (units unknown) (unknown) (unknown) (no date) (unknown) (unknown) Magnesium (units unknown) (unknown) (unknown) (no date) (unknown) (unknown) Medical History (Updated 01/15/23 @ 17:33 by Gayla Nunez DO) (units unknown) (unknown) (unknown) (no date) (unknown) (unknown) Medication Instructions Recorded Confirmed Type (units unknown) (unknown) (unknown) (no date) (unknown) (unknown) Meds (units unknown) (unknown) (unknown) (no date) (unknown) (unknown) [place] # (Auto) 1500 H (units unknown) (unknown) (unknown) (no date) (unknown) (unknown) [place] # (Auto) (units unknown) (unknown) (unknown) (no date) (unknown) (unknown) [place] % (Auto) 9.2 (units unknown) (unknown) (unknown) (no date) (unknown) (unknown) [place] % (Auto) (units unknown) (unknown) (unknown) (no date) (unknown) (unknown) Mother No significant medical problems (units unknown) (unknown) (unknown) (no date) (unknown) (unknown) NT-Pro-B Natriuret Pep 2810 H (units unknown) (unknown) (unknown) (no date) (unknown) (unknown) NT-Pro-B Natriuret Pep (units unknown) (unknown) (unknown) (no date) (unknown) (unknown) Narrative: (units unknown) (unknown) (unknown) (no date) (unknown) (unknown) Nasal Screen MRSA (PCR) Not detected (units unknown) (unknown) (unknown) (no date) (unknown) (unknown) Nasal Screen MRSA (PCR) (units unknown) (unknown) (unknown) (no date) (unknown) (unknown) Neuropathy of both feet (units unknown) (unknown) (unknown) (no date) (unknown) (unknown) Neut # (Auto) [address] H (units unknown) (unknown) (unknown) (no date) (unknown) (unknown) Neut # (Auto) (units unknown) (unknown) (unknown) (no date) (unknown) (unknown) Neut % (Auto) 81.5 H (units unknown) (unknown) (unknown) (no date) (unknown) (unknown) Neut % (Auto) (units unknown) (unknown) (unknown) (no date) (unknown) (unknown) Objective (units unknown) (unknown) (unknown) (no date) (unknown) (unknown) On admit patient denies chest pain, shortness in breath, headache, changes in (units unknown) (unknown) (unknown) (no date) (unknown) (unknown) Oxygen Delivery Method Room Air (units unknown) (unknown) (unknown) (no date) (unknown) (unknown) Oxygen Delivery Method (units unknown) (unknown) (unknown) (no date) (unknown) (unknown) Oxygen Flow Rate 0 (units unknown) (unknown) (unknown) (no date) (unknown) (unknown) Oxygen Flow Rate (units unknown) (unknown) (unknown) (no date) (unknown) (unknown) PT 19.2 H (units unknown) (unknown) (unknown) (no date) (unknown) (unknown) PT (units unknown) (unknown) (unknown) (no date) (unknown) (unknown) Patient History (units unknown) (unknown) (unknown) (no date) (unknown) (unknown) Patient was given an initial dose of diltiazem and then placed on a Dilt drip. (units unknown) (unknown) (unknown) (no date) (unknown) (unknown) Patient: Arvind Brock MR#: [id number] (units unknown) (unknown) (unknown) (no date) (unknown) (unknown) Plt Count 162 (units unknown) (unknown) (unknown) (no date) (unknown) (unknown) Plt Count (units unknown) (unknown) (unknown) (no date) (unknown) (unknown) Potassium 4.5 (units unknown) (unknown) (unknown) (no date) (unknown) (unknown) Potassium (units unknown) (unknown) (unknown) (no date) (unknown) (unknown) Prior [facility] (units unknown) (unknown) (unknown) (no date) (unknown) (unknown) Procalcitonin 0.50 (units unknown) (unknown) (unknown) (no date) (unknown) (unknown) Procalcitonin (units unknown) (unknown) (unknown) (no date) (unknown) (unknown) Provider: Piper Brannon-[facility] (units unknown) (unknown) (unknown) (no date) (unknown) (unknown) Pulse Oximetry 93 93 (units unknown) (unknown) (unknown) (no date) (unknown) (unknown) Pulse Oximetry 93 94 (units unknown) (unknown) (unknown) (no date) (unknown) (unknown) Pulse Oximetry 93 (units unknown) (unknown) (unknown) (no date) (unknown) (unknown) Pulse Oximetry 94 94 (units unknown) (unknown) (unknown) (no date) (unknown) (unknown) Pulse Oximetry 94 95 95 (units unknown) (unknown) (unknown) (no date) (unknown) (unknown) Pulse Oximetry 94 95 (units unknown) (unknown) (unknown) (no date) (unknown) (unknown) Pulse Oximetry 94 (units unknown) (unknown) (unknown) (no date) (unknown) (unknown) Pulse Oximetry 95 91 (units unknown) (unknown) (unknown) (no date) (unknown) (unknown) Pulse Oximetry 95 94 94 (units unknown) (unknown) (unknown) (no date) (unknown) (unknown) Pulse Oximetry 95 95 (units unknown) (unknown) (unknown) (no date) (unknown) (unknown) Pulse Oximetry 95 96 (units unknown) (unknown) (unknown) (no date) (unknown) (unknown) Pulse Oximetry 95 (units unknown) (unknown) (unknown) (no date) (unknown) (unknown) Pulse Oximetry 96 (units unknown) (unknown) (unknown) (no date) (unknown) (unknown) Pulse Oximetry 97 98 (units unknown) (unknown) (unknown) (no date) (unknown) (unknown) Pulse Oximetry 99 95 93 (units unknown) (unknown) (unknown) (no date) (unknown) (unknown) Pulse Oximetry 99 (units unknown) (unknown) (unknown) (no date) (unknown) (unknown) Pulse Rate 100 H 104 H (units unknown) (unknown) (unknown) (no date) (unknown) (unknown) Pulse Rate 101 H (units unknown) (unknown) (unknown) (no date) (unknown) (unknown) Pulse Rate 102 H 105 H (units unknown) (unknown) (unknown) (no date) (unknown) (unknown) Pulse Rate 102 H (units unknown) (unknown) (unknown) (no date) (unknown) (unknown) Pulse Rate 104 H 108 H (units unknown) (unknown) (unknown) (no date) (unknown) (unknown) Pulse Rate 104 H (units unknown) (unknown) (unknown) (no date) (unknown) (unknown) Pulse Rate 106 H 110 H (units unknown) (unknown) (unknown) (no date) (unknown) (unknown) Pulse Rate 106 H (units unknown) (unknown) (unknown) (no date) (unknown) (unknown) Pulse Rate 107 H 107 H (units unknown) (unknown) (unknown) (no date) (unknown) (unknown) Pulse Rate 108 H 105 H (units unknown) (unknown) (unknown) (no date) (unknown) (unknown) Pulse Rate 108 H (units unknown) (unknown) (unknown) (no date) (unknown) (unknown) Pulse Rate 109 H (units unknown) (unknown) (unknown) (no date) (unknown) (unknown) Pulse Rate 110 H 109 H (units unknown) (unknown) (unknown) (no date) (unknown) (unknown) Pulse Rate 112 H (units unknown) (unknown) (unknown) (no date) (unknown) (unknown) Pulse Rate 115 H 111 H (units unknown) (unknown) (unknown) (no date) (unknown) (unknown) Pulse Rate 116 H (units unknown) (unknown) (unknown) (no date) (unknown) (unknown) Pulse Rate 123 H 118 H (units unknown) (unknown) (unknown) (no date) (unknown) (unknown) Pulse Rate 135 H (units unknown) (unknown) (unknown) (no date) (unknown) (unknown) Pulse Rate 138 H 126 H (units unknown) (unknown) (unknown) (no date) (unknown) (unknown) Pulse Rate 209 H 172 H 172 H (units unknown) (unknown) (unknown) (no date) (unknown) (unknown) Pulse Rate 92 H 100 H 95 H (units unknown) (unknown) (unknown) (no date) (unknown) (unknown) Pulse Rate 93 H 89 90 (units unknown) (unknown) (unknown) (no date) (unknown) (unknown) Pulse Rate 95 H 86 86 (units unknown) (unknown) (unknown) (no date) (unknown) (unknown) Quality (units unknown) (unknown) (unknown) (no date) (unknown) (unknown) RBC 5.00 (units unknown) (unknown) (unknown) (no date) (unknown) (unknown) RBC (units unknown) (unknown) (unknown) (no date) (unknown) (unknown) RDW 15.3 H (units unknown) (unknown) (unknown) (no date) (unknown) (unknown) RDW (units unknown) (unknown) (unknown) (no date) (unknown) (unknown) RSV (PCR) Negative (units unknown) (unknown) (unknown) (no date) (unknown) (unknown) RSV (PCR) (units unknown) (unknown) (unknown) (no date) (unknown) (unknown) Respiratory Rate 30 H 51 H 53 H (units unknown) (unknown) (unknown) (no date) (unknown) (unknown) Respiratory Rate 30 H (units unknown) (unknown) (unknown) (no date) (unknown) (unknown) Respiratory Rate 31 H 32 H (units unknown) (unknown) (unknown) (no date) (unknown) (unknown) Respiratory Rate 31 H 34 H (units unknown) (unknown) (unknown) (no date) (unknown) (unknown) Respiratory Rate 31 H (units unknown) (unknown) (unknown) (no date) (unknown) (unknown) Respiratory Rate 32 H (units unknown) (unknown) (unknown) (no date) (unknown) (unknown) Respiratory Rate 34 H 32 H 28 H (units unknown) (unknown) (unknown) (no date) (unknown) (unknown) Respiratory Rate 34 H 34 H (units unknown) (unknown) (unknown) (no date) (unknown) (unknown) Respiratory Rate 34 H (units unknown) (unknown) (unknown) (no date) (unknown) (unknown) Respiratory Rate 35 H 31 H 37 H (units unknown) (unknown) (unknown) (no date) (unknown) (unknown) Respiratory Rate 35 H 33 H (units unknown) (unknown) (unknown) (no date) (unknown) (unknown) Respiratory Rate 35 H 36 H (units unknown) (unknown) (unknown) (no date) (unknown) (unknown) Respiratory Rate 35 H (units unknown) (unknown) (unknown) (no date) (unknown) (unknown) Respiratory Rate 36 H 35 H (units unknown) (unknown) (unknown) (no date) (unknown) (unknown) Respiratory Rate 36 H (units unknown) (unknown) (unknown) (no date) (unknown) (unknown) Respiratory Rate 37 H 39 H (units unknown) (unknown) (unknown) (no date) (unknown) (unknown) Respiratory Rate 37 H (units unknown) (unknown) (unknown) (no date) (unknown) (unknown) Respiratory Rate 38 H 37 H (units unknown) (unknown) (unknown) (no date) (unknown) (unknown) Respiratory Rate 38 H (units unknown) (unknown) (unknown) (no date) (unknown) (unknown) Respiratory Rate 39 H (units unknown) (unknown) (unknown) (no date) (unknown) (unknown) Respiratory Rate 40 H 39 H (units unknown) (unknown) (unknown) (no date) (unknown) (unknown) Respiratory Rate 43 H 44 H (units unknown) (unknown) (unknown) (no date) (unknown) (unknown) Respiratory Rate 47 H (units unknown) (unknown) (unknown) (no date) (unknown) (unknown) Respiratory Rate 51 H (units unknown) (unknown) (unknown) (no date) (unknown) (unknown) SARS-CoV-2 (PCR) Negative (units unknown) (unknown) (unknown) (no date) (unknown) (unknown) SARS-CoV-2 (PCR) (units unknown) (unknown) (unknown) (no date) (unknown) (unknown) Safety + Behavioral: (units unknown) (unknown) (unknown) (no date) (unknown) (unknown) Signed By: (units unknown) (unknown) (unknown) (no date) (unknown) (unknown) Smoking Status Never smoker (units unknown) (unknown) (unknown) (no date) (unknown) (unknown) Social History: (units unknown) (unknown) (unknown) (no date) (unknown) (unknown) Sodium 128 L (units unknown) (unknown) (unknown) (no date) (unknown) (unknown) Sodium 128, Cl 96, BUN 24, bicarb 19, glucose 252, Mag 1.2, PT 19.2, INR 1.7, (units unknown) (unknown) (unknown) (no date) (unknown) (unknown) Sodium (units unknown) (unknown) (unknown) (no date) (unknown) (unknown) Substance Use Type does not use (units unknown) (unknown) (unknown) (no date) (unknown) (unknown) Surgical History (units unknown) (unknown) (unknown) (no date) (unknown) (unknown) Temperature 100.9 F H (units unknown) (unknown) (unknown) (no date) (unknown) (unknown) Temperature 101 F H (units unknown) (unknown) (unknown) (no date) (unknown) (unknown) Temperature 101.1 F H (units unknown) (unknown) (unknown) (no date) (unknown) (unknown) Temperature (units unknown) (unknown) (unknown) (no date) (unknown) (unknown) Threatened By a Person (units unknown) (unknown) (unknown) (no date) (unknown) (unknown) Time Patient Seen: 20:27 (units unknown) (unknown) (unknown) (no date) (unknown) (unknown) Tobacco + Substance use: (units unknown) (unknown) (unknown) (no date) (unknown) (unknown) Total Bilirubin 1.2 (units unknown) (unknown) (unknown) (no date) (unknown) (unknown) Total Bilirubin (units unknown) (unknown) (unknown) (no date) (unknown) (unknown) Total Creatine Kinase 133 (units unknown) (unknown) (unknown) (no date) (unknown) (unknown) Total Creatine Kinase (units unknown) (unknown) (unknown) (no date) (unknown) (unknown) Total Protein 7.7 (units unknown) (unknown) (unknown) (no date) (unknown) (unknown) Total Protein (units unknown) (unknown) (unknown) (no date) (unknown) (unknown) Troponin I 0.016 (units unknown) (unknown) (unknown) (no date) (unknown) (unknown) Troponin I (units unknown) (unknown) (unknown) (no date) (unknown) (unknown) U-100 Insulin) (units unknown) (unknown) (unknown) (no date) (unknown) (unknown) VTE (units unknown) (unknown) (unknown) (no date) (unknown) (unknown) Vital Signs (units unknown) (unknown) (unknown) (no date) (unknown) (unknown) WBC 15.9 H (units unknown) (unknown) (unknown) (no date) (unknown) (unknown) WBC (units unknown) (unknown) (unknown) (no date) (unknown) (unknown) [Embedded Image Not Available] (units unknown) (unknown) (unknown) (no date) (unknown) (unknown) afebrile temp 101?, hypertensive urgency BP 193/91, 183/84, tachycardic heart (units unknown) (unknown) (unknown) (no date) (unknown) (unknown) air-patient is stable in no distress sleeping heavily. VBG: PH 7.44, pCO2 (units unknown) (unknown) (unknown) (no date) (unknown) (unknown) alcohol intake frequency other (units unknown) (unknown) (unknown) (no date) (unknown) (unknown) alcohol intake never (units unknown) (unknown) (unknown) (no date) (unknown) (unknown) are all negative. Chest x-ray mild pulmonary vascular congestion. I personally (units unknown) (unknown) (unknown) (no date) (unknown) (unknown) body aches, chills, cough, denies recent exposure to illness, abdominal pain, (units unknown) (unknown) (unknown) (no date) (unknown) (unknown) changes, constipation, incontinence, melena, rashes, recent changes to (units unknown) (unknown) (unknown) (no date) (unknown) (unknown) difficulty with ambulation, recent falls, head injury, LOC, currently no fever, (units unknown) (unknown) (unknown) (no date) (unknown) (unknown) for the past week, nausea and vomiting on way to the hospital. Patient was sent (units unknown) (unknown) (unknown) (no date) (unknown) (unknown) has been fast, fever x 5 days, patient is a poor historian but verbalizes that (units unknown) (unknown) (unknown) (no date) (unknown) (unknown) he may have had increased swelling redness and pain of the left lower extremity (units unknown) (unknown) (unknown) (no date) (unknown) (unknown) household members spouse (units unknown) (unknown) (unknown) (no date) (unknown) (unknown) hypotension 102/59, 98/54, map 75, HR 86 Afib, RR 20, O2 saturation 94% on room (units unknown) (unknown) (unknown) (no date) (unknown) (unknown) in November and was not taking medications regularly at that time.? Patient (units unknown) (unknown) (unknown) (no date) (unknown) (unknown) insulin glargine 100 unit/mL 12 unit SUBCUT BEDTIME 05/11/20 01/15/23 History (units unknown) (unknown) (unknown) (no date) (unknown) (unknown) lipase 367, BNP 2810, sofa score:2, anion gap negative, COVID influenza a/B/RSV (units unknown) (unknown) (unknown) (no date) (unknown) (unknown) lisinopril 5 mg tablet 5 mg PO DAILY 90 days #90 tabs 12/21/22 01/15/23 Rx (units unknown) (unknown) (unknown) (no date) (unknown) (unknown) medication, illness, injury, or trauma. (units unknown) (unknown) (unknown) (no date) (unknown) (unknown) metformin 500 mg tablet 500 mg PO BID 05/11/20 01/15/23 History (units unknown) (unknown) (unknown) (no date) (unknown) (unknown) metoprolol succinate 50 mg 50 mg PO BID 90 days #180 tabs 12/21/22 01/15/23 Rx (units unknown) (unknown) (unknown) (no date) (unknown) (unknown) neuropathy, HTN, HLD, and neuropathy. In ED was primary historian she is (units unknown) (unknown) (unknown) (no date) (unknown) (unknown) noncompliant with medications, and does not follow with Cardiology. Patient (units unknown) (unknown) (unknown) (no date) (unknown) (unknown) piperacillin [From Zosyn] Allergy Severe Uticaria Verified 05/11/20 22:50 (units unknown) (unknown) (unknown) (no date) (unknown) (unknown) presents with 5 days of fevers generally feeling unwell he states his heart rate (units unknown) (unknown) (unknown) (no date) (unknown) (unknown) rates up to 209, tachypneic respiratory rates 30-50 in atrial fibrillation. (units unknown) (unknown) (unknown) (no date) (unknown) (unknown) reviewed all imaging and EKG. EKG: AFib RVR with a rate of 169 (units unknown) (unknown) (unknown) (no date) (unknown) (unknown) rivaroxaban 20 mg tablet (Xarelto) 20 mg PO QPM 05/11/20 01/15/23 History (units unknown) (unknown) (unknown) (no date) (unknown) (unknown) states his primary care [facility] through [facility].? In the ED patient was (units unknown) (unknown) (unknown) (no date) (unknown) (unknown) subcutaneous solution (Lantus (units unknown) (unknown) (unknown) (no date) (unknown) (unknown) tablet,extended release 24 hr (units unknown) (unknown) (unknown) (no date) (unknown) (unknown) tazobactam [From Zosyn] Allergy Severe Uticaria Verified 05/11/20 22:50 (units unknown) (unknown) (unknown) (no date) (unknown) (unknown) to be extremely resistant to coming into the emergency department, is frequently (units unknown) (unknown) (unknown) (no date) (unknown) (unknown) unsure if he is taking his medications regularly.? He was admitted for AFib RVR (units unknown) (unknown) (unknown) (no date) (unknown) (unknown) urinary incontinence/retent ion, dysuria, frequency, urgency, hematuria, bowel (units unknown) (unknown) (unknown) (no date) (unknown) (unknown) vision, difficulty swallowing, speech impairment, weakness, numbness, tingling, (units unknown) (unknown) Result panel 434 (unknown) (no date) (unknown) (unknown) (no value) (units unknown) (unknown) (unknown) (no date) (unknown) (unknown) (past 8 hours): (units unknown) (unknown) (unknown) (no date) (unknown) (unknown) [id number] (units unknown) (unknown) (unknown) (no date) (unknown) (unknown) 01/15/23 01/15/23 01/15/23 (units unknown) (unknown) (unknown) (no date) (unknown) (unknown) 01/15/23 01/15/23 (units unknown) (unknown) (unknown) (no date) (unknown) (unknown) 01/15/23 15:25 (units unknown) (unknown) (unknown) (no date) (unknown) (unknown) 01/15/23 (units unknown) (unknown) (unknown) (no date) (unknown) (unknown) 15:25 15:25 15:25 (units unknown) (unknown) (unknown) (no date) (unknown) (unknown) 15:25 15:25 15:49 (units unknown) (unknown) (unknown) (no date) (unknown) (unknown) 15:26 01/15/23 (units unknown) (unknown) (unknown) (no date) (unknown) (unknown) 15:27 01/15/23 (units unknown) (unknown) (unknown) (no date) (unknown) (unknown) 15:27 (units unknown) (unknown) (unknown) (no date) (unknown) (unknown) 15:29 01/15/23 (units unknown) (unknown) (unknown) (no date) (unknown) (unknown) 15:30 01/15/23 (units unknown) (unknown) (unknown) (no date) (unknown) (unknown) 15:30 (units unknown) (unknown) (unknown) (no date) (unknown) (unknown) 15:35 01/15/23 (units unknown) (unknown) (unknown) (no date) (unknown) (unknown) 15:40 (units unknown) (unknown) (unknown) (no date) (unknown) (unknown) 15:45 01/15/23 (units unknown) (unknown) (unknown) (no date) (unknown) (unknown) 15:48 01/15/23 (units unknown) (unknown) (unknown) (no date) (unknown) (unknown) 15:48 (units unknown) (unknown) (unknown) (no date) (unknown) (unknown) 15:50 01/15/23 (units unknown) (unknown) (unknown) (no date) (unknown) (unknown) 15:55 01/15/23 (units unknown) (unknown) (unknown) (no date) (unknown) (unknown) 15:55 (units unknown) (unknown) (unknown) (no date) (unknown) (unknown) 16:00 01/15/23 (units unknown) (unknown) (unknown) (no date) (unknown) (unknown) 16:00 (units unknown) (unknown) (unknown) (no date) (unknown) (unknown) 16:05 01/15/23 (units unknown) (unknown) (unknown) (no date) (unknown) (unknown) 16:10 01/15/23 (units unknown) (unknown) (unknown) (no date) (unknown) (unknown) 16:10 (units unknown) (unknown) (unknown) (no date) (unknown) (unknown) 16:15 01/15/23 (units unknown) (unknown) (unknown) (no date) (unknown) (unknown) 16:15 (units unknown) (unknown) (unknown) (no date) (unknown) (unknown) 16:20 01/15/23 (units unknown) (unknown) (unknown) (no date) (unknown) (unknown) 16:25 01/15/23 (units unknown) (unknown) (unknown) (no date) (unknown) (unknown) 16:25 (units unknown) (unknown) (unknown) (no date) (unknown) (unknown) 16:30 01/15/23 (units unknown) (unknown) (unknown) (no date) (unknown) (unknown) 16:30 (units unknown) (unknown) (unknown) (no date) (unknown) (unknown) 16:35 01/15/23 (units unknown) (unknown) (unknown) (no date) (unknown) (unknown) 16:40 01/15/23 (units unknown) (unknown) (unknown) (no date) (unknown) (unknown) 16:45 01/15/23 (units unknown) (unknown) (unknown) (no date) (unknown) (unknown) 16:45 (units unknown) (unknown) (unknown) (no date) (unknown) (unknown) 16:50 01/15/23 (units unknown) (unknown) (unknown) (no date) (unknown) (unknown) 16:50 (units unknown) (unknown) (unknown) (no date) (unknown) (unknown) 16:51 (units unknown) (unknown) (unknown) (no date) (unknown) (unknown) 16:55 01/15/23 (units unknown) (unknown) (unknown) (no date) (unknown) (unknown) 17:00 01/15/23 (units unknown) (unknown) (unknown) (no date) (unknown) (unknown) 17:00 (units unknown) (unknown) (unknown) (no date) (unknown) (unknown) 17:05 01/15/23 (units unknown) (unknown) (unknown) (no date) (unknown) (unknown) 17:05 (units unknown) (unknown) (unknown) (no date) (unknown) (unknown) 17:10 01/15/23 (units unknown) (unknown) (unknown) (no date) (unknown) (unknown) 17:15 01/15/23 (units unknown) (unknown) (unknown) (no date) (unknown) (unknown) 17:15 (units unknown) (unknown) (unknown) (no date) (unknown) (unknown) 17:20 01/15/23 (units unknown) (unknown) (unknown) (no date) (unknown) (unknown) 17:20 (units unknown) (unknown) (unknown) (no date) (unknown) (unknown) 17:25 01/15/23 (units unknown) (unknown) (unknown) (no date) (unknown) (unknown) 17:30 01/15/23 (units unknown) (unknown) (unknown) (no date) (unknown) (unknown) 17:30 (units unknown) (unknown) (unknown) (no date) (unknown) (unknown) 17:35 01/15/23 (units unknown) (unknown) (unknown) (no date) (unknown) (unknown) 17:35 (units unknown) (unknown) (unknown) (no date) (unknown) (unknown) 17:40 01/15/23 (units unknown) (unknown) (unknown) (no date) (unknown) (unknown) 17:45 01/15/23 (units unknown) (unknown) (unknown) (no date) (unknown) (unknown) 17:45 (units unknown) (unknown) (unknown) (no date) (unknown) (unknown) 17:50 01/15/23 (units unknown) (unknown) (unknown) (no date) (unknown) (unknown) 17:50 (units unknown) (unknown) (unknown) (no date) (unknown) (unknown) 17:55 01/15/23 (units unknown) (unknown) (unknown) (no date) (unknown) (unknown) 17:55 (units unknown) (unknown) (unknown) (no date) (unknown) (unknown) 18:07 (units unknown) (unknown) (unknown) (no date) (unknown) (unknown) 18:11 01/15/23 (units unknown) (unknown) (unknown) (no date) (unknown) (unknown) 18:15 01/15/23 (units unknown) (unknown) (unknown) (no date) (unknown) (unknown) 18:15 19:10 (units unknown) (unknown) (unknown) (no date) (unknown) (unknown) 18:20 (units unknown) (unknown) (unknown) (no date) (unknown) (unknown) 18:25 01/15/23 (units unknown) (unknown) (unknown) (no date) (unknown) (unknown) 18:26 01/15/23 (units unknown) (unknown) (unknown) (no date) (unknown) (unknown) 18:30 01/15/23 (units unknown) (unknown) (unknown) (no date) (unknown) (unknown) 18:35 (units unknown) (unknown) (unknown) (no date) (unknown) (unknown) 18:40 01/15/23 (units unknown) (unknown) (unknown) (no date) (unknown) (unknown) 18:45 01/15/23 (units unknown) (unknown) (unknown) (no date) (unknown) (unknown) 18:50 (units unknown) (unknown) (unknown) (no date) (unknown) (unknown) 2.5. VBG: PH 7.44, pCO2 30.5, PO2 34, bicarb 21, TCO2 21, O2 sat 69%, BE (units unknown) (unknown) (unknown) (no date) (unknown) (unknown) 252, Mag 1.2, PT 19.2, INR 1.7, lipase 367, BNP 2810, sofa score:2, anion gap (units unknown) (unknown) (unknown) (no date) (unknown) (unknown) ALT 29 (units unknown) (unknown) (unknown) (no date) (unknown) (unknown) ALT (units unknown) (unknown) (unknown) (no date) (unknown) (unknown) APTT 33 (units unknown) (unknown) (unknown) (no date) (unknown) (unknown) APTT (units unknown) (unknown) (unknown) (no date) (unknown) (unknown) AST 32 (units unknown) (unknown) (unknown) (no date) (unknown) (unknown) AST (units unknown) (unknown) (unknown) (no date) (unknown) (unknown) Afib (units unknown) (unknown) (unknown) (no date) (unknown) (unknown) Age/Sex: 67 / M (units unknown) (unknown) (unknown) (no date) (unknown) (unknown) Albumin 4.1 (units unknown) (unknown) (unknown) (no date) (unknown) (unknown) Albumin (units unknown) (unknown) (unknown) (no date) (unknown) (unknown) Albumin/Globulin Ratio 1.1 (units unknown) (unknown) (unknown) (no date) (unknown) (unknown) Albumin/Globulin Ratio (units unknown) (unknown) (unknown) (no date) (unknown) (unknown) Alkaline Phosphatase 97 (units unknown) (unknown) (unknown) (no date) (unknown) (unknown) Alkaline Phosphatase (units unknown) (unknown) (unknown) (no date) (unknown) (unknown) All 12 point systems reviewed with the patient and are negative except otherwise (units unknown) (unknown) (unknown) (no date) (unknown) (unknown) Allergies (units unknown) (unknown) (unknown) (no date) (unknown) (unknown) Allergy/AdvReac Type Severity Reaction Status Date / Time (units unknown) (unknown) (unknown) (no date) (unknown) (unknown) Assessment + Plan narrative: (units unknown) (unknown) (unknown) (no date) (unknown) (unknown) Assessment + Plan (units unknown) (unknown) (unknown) (no date) (unknown) (unknown) At the time of admit continued to have a low-grade fever 100.9, developed (units unknown) (unknown) (unknown) (no date) (unknown) (unknown) BUN 24 H (units unknown) (unknown) (unknown) (no date) (unknown) (unknown) BUN (units unknown) (unknown) (unknown) (no date) (unknown) (unknown) BUN/Creatinine Ratio 21.4 (units unknown) (unknown) (unknown) (no date) (unknown) (unknown) BUN/Creatinine Ratio (units unknown) (unknown) (unknown) (no date) (unknown) (unknown) Baso # (Auto) 0 (units unknown) (unknown) (unknown) (no date) (unknown) (unknown) Baso # (Auto) (units unknown) (unknown) (unknown) (no date) (unknown) (unknown) Baso % (Auto) 0.3 (units unknown) (unknown) (unknown) (no date) (unknown) (unknown) Baso % (Auto) (units unknown) (unknown) (unknown) (no date) (unknown) (unknown) Been Physically Hurt or No (units unknown) (unknown) (unknown) (no date) (unknown) (unknown) Blood Pressure 102/59 L (units unknown) (unknown) (unknown) (no date) (unknown) (unknown) Blood Pressure 105/57 L (units unknown) (unknown) (unknown) (no date) (unknown) (unknown) Blood Pressure 106/58 L (units unknown) (unknown) (unknown) (no date) (unknown) (unknown) Blood Pressure 107/53 L (units unknown) (unknown) (unknown) (no date) (unknown) (unknown) Blood Pressure 108/58 L 104/54 L (units unknown) (unknown) (unknown) (no date) (unknown) (unknown) Blood Pressure 113/55 L 114/58 L (units unknown) (unknown) (unknown) (no date) (unknown) (unknown) Blood Pressure 113/58 L 108/59 L (units unknown) (unknown) (unknown) (no date) (unknown) (unknown) Blood Pressure 114/56 L 96/54 L (units unknown) (unknown) (unknown) (no date) (unknown) (unknown) Blood Pressure 115/58 L (units unknown) (unknown) (unknown) (no date) (unknown) (unknown) Blood Pressure 119/66 130/56 L (units unknown) (unknown) (unknown) (no date) (unknown) (unknown) Blood Pressure 120/56 L 126/61 (units unknown) (unknown) (unknown) (no date) (unknown) (unknown) Blood Pressure 122/57 L (units unknown) (unknown) (unknown) (no date) (unknown) (unknown) Blood Pressure 123/72 117/56 L (units unknown) (unknown) (unknown) (no date) (unknown) (unknown) Blood Pressure 125/58 L (units unknown) (unknown) (unknown) (no date) (unknown) (unknown) Blood Pressure 125/63 (units unknown) (unknown) (unknown) (no date) (unknown) (unknown) Blood Pressure 126/58 L (units unknown) (unknown) (unknown) (no date) (unknown) (unknown) Blood Pressure 127/57 L (units unknown) (unknown) (unknown) (no date) (unknown) (unknown) Blood Pressure 143/63 H (units unknown) (unknown) (unknown) (no date) (unknown) (unknown) Blood Pressure 156/60 H 122/58 L (units unknown) (unknown) (unknown) (no date) (unknown) (unknown) Blood Pressure 172/92 H (units unknown) (unknown) (unknown) (no date) (unknown) (unknown) Blood Pressure 183/84 H 140/69 (units unknown) (unknown) (unknown) (no date) (unknown) (unknown) Blood Pressure 193/91 H (units unknown) (unknown) (unknown) (no date) (unknown) (unknown) Blood Pressure 98/54 L (units unknown) (unknown) (unknown) (no date) (unknown) (unknown) Blood Pressure (units unknown) (unknown) (unknown) (no date) (unknown) (unknown) CK-MB (CK-2) 1.09 (units unknown) (unknown) (unknown) (no date) (unknown) (unknown) CK-MB (CK-2) Rel Index 0.8 L (units unknown) (unknown) (unknown) (no date) (unknown) (unknown) CK-MB (CK-2) Rel Index (units unknown) (unknown) (unknown) (no date) (unknown) (unknown) CK-MB (CK-2) (units unknown) (unknown) (unknown) (no date) (unknown) (unknown) Calcium 8.9 (units unknown) (unknown) (unknown) (no date) (unknown) (unknown) Calcium (units unknown) (unknown) (unknown) (no date) (unknown) (unknown) Carbon Dioxide 19 L (units unknown) (unknown) (unknown) (no date) (unknown) (unknown) Carbon Dioxide (units unknown) (unknown) (unknown) (no date) (unknown) (unknown) Chief complaint: vomiting/shaking/fe trell (units unknown) (unknown) (unknown) (no date) (unknown) (unknown) Chloride 96 L (units unknown) (unknown) (unknown) (no date) (unknown) (unknown) Chloride (units unknown) (unknown) (unknown) (no date) (unknown) (unknown) Creatinine 1.12 (units unknown) (unknown) (unknown) (no date) (unknown) (unknown) Creatinine (units unknown) (unknown) (unknown) (no date) (unknown) (unknown) : 1955 Acct:[id number] (units unknown) (unknown) (unknown) (no date) (unknown) (unknown) Date Patient Seen: 01/15/23 (units unknown) (unknown) (unknown) (no date) (unknown) (unknown) Date of Service: 01/15/23 (units unknown) (unknown) (unknown) (no date) (unknown) (unknown) Deep Vein Thrombosis/Pulmonar y Embolism Present on Admission: No (units unknown) (unknown) (unknown) (no date) (unknown) (unknown) Diabetes mellitus (units unknown) (unknown) (unknown) (no date) (unknown) (unknown) Diabetes (units unknown) (unknown) (unknown) (no date) (unknown) (unknown) Environment (units unknown) (unknown) (unknown) (no date) (unknown) (unknown) Eos # (Auto) 0 (units unknown) (unknown) (unknown) (no date) (unknown) (unknown) Eos # (Auto) (units unknown) (unknown) (unknown) (no date) (unknown) (unknown) Eos % (Auto) 0.0 L (units unknown) (unknown) (unknown) (no date) (unknown) (unknown) Eos % (Auto) (units unknown) (unknown) (unknown) (no date) (unknown) (unknown) Estimated GFR > 60 (units unknown) (unknown) (unknown) (no date) (unknown) (unknown) Estimated GFR (units unknown) (unknown) (unknown) (no date) (unknown) (unknown) Exam (units unknown) (unknown) (unknown) (no date) (unknown) (unknown) Family + Social History (units unknown) (unknown) (unknown) (no date) (unknown) (unknown) Family History (units unknown) (unknown) (unknown) (no date) (unknown) (unknown) Father Smoker (units unknown) (unknown) (unknown) (no date) (unknown) (unknown) Feels Safe in Current Yes (units unknown) (unknown) (unknown) (no date) (unknown) (unknown) Globulin 3.6 (units unknown) (unknown) (unknown) (no date) (unknown) (unknown) Globulin (units unknown) (unknown) (unknown) (no date) (unknown) (unknown) Glucose 252 H (units unknown) (unknown) (unknown) (no date) (unknown) (unknown) Glucose (units unknown) (unknown) (unknown) (no date) (unknown) (unknown) Hct 43.2 (units unknown) (unknown) (unknown) (no date) (unknown) (unknown) Hct (units unknown) (unknown) (unknown) (no date) (unknown) (unknown) Heart attack (units unknown) (unknown) (unknown) (no date) (unknown) (unknown) Hgb 14.6 (units unknown) (unknown) (unknown) (no date) (unknown) (unknown) Hgb (units unknown) (unknown) (unknown) (no date) (unknown) (unknown) History + Physical Report (units unknown) (unknown) (unknown) (no date) (unknown) (unknown) History of Present Illness (units unknown) (unknown) (unknown) (no date) (unknown) (unknown) History of hernia repair (units unknown) (unknown) (unknown) (no date) (unknown) (unknown) History of neck surgery (units unknown) (unknown) (unknown) (no date) (unknown) (unknown) Home Medications and Allergies (units unknown) (unknown) (unknown) (no date) (unknown) (unknown) Home Medications (units unknown) (unknown) (unknown) (no date) (unknown) (unknown) Hyperlipidemia (units unknown) (unknown) (unknown) (no date) (unknown) (unknown) Hypertension (units unknown) (unknown) (unknown) (no date) (unknown) (unknown) INR 1.7 H (units unknown) (unknown) (unknown) (no date) (unknown) (unknown) INR (units unknown) (unknown) (unknown) (no date) (unknown) (unknown) Influenza A (RT-PCR) Flu a negative (units unknown) (unknown) (unknown) (no date) (unknown) (unknown) Influenza A (RT-PCR) (units unknown) (unknown) (unknown) (no date) (unknown) (unknown) Influenza B (RT-PCR) Flu b negative (units unknown) (unknown) (unknown) (no date) (unknown) (unknown) Influenza B (RT-PCR) (units unknown) (unknown) (unknown) (no date) (unknown) (unknown) [address] [address] (units unknown) (unknown) (unknown) (no date) (unknown) (unknown) Arvind Brock is a 67yo M with PMH of A-fib on [place] [id number] with peripheral (units unknown) (unknown) (unknown) (no date) (unknown) (unknown) Laboratory Results - last 24 hr (units unknown) (unknown) (unknown) (no date) (unknown) (unknown) Labs (units unknown) (unknown) (unknown) (no date) (unknown) (unknown) Labs: (units unknown) (unknown) (unknown) (no date) (unknown) (unknown) Lactate 1.0 (units unknown) (unknown) (unknown) (no date) (unknown) (unknown) Lactate 3.2 H (units unknown) (unknown) (unknown) (no date) (unknown) (unknown) Lactate (units unknown) (unknown) (unknown) (no date) (unknown) (unknown) Lipase 367 H (units unknown) (unknown) (unknown) (no date) (unknown) (unknown) Lipase (units unknown) (unknown) (unknown) (no date) (unknown) (unknown) Lymph # (Auto) 1400 (units unknown) (unknown) (unknown) (no date) (unknown) (unknown) Lymph # (Auto) (units unknown) (unknown) (unknown) (no date) (unknown) (unknown) Lymph % (Auto) 9.0 L (units unknown) (unknown) (unknown) (no date) (unknown) (unknown) Lymph % (Auto) (units unknown) (unknown) (unknown) (no date) (unknown) (unknown) MCH 29.3 (units unknown) (unknown) (unknown) (no date) (unknown) (unknown) MCH (units unknown) (unknown) (unknown) (no date) (unknown) (unknown) MCHC 33.8 (units unknown) (unknown) (unknown) (no date) (unknown) (unknown) MCHC (units unknown) (unknown) (unknown) (no date) (unknown) (unknown) MCV 86.5 (units unknown) (unknown) (unknown) (no date) (unknown) (unknown) MCV (units unknown) (unknown) (unknown) (no date) (unknown) (unknown) Magnesium 1.2 L (units unknown) (unknown) (unknown) (no date) (unknown) (unknown) Magnesium (units unknown) (unknown) (unknown) (no date) (unknown) (unknown) Medical History (units unknown) (unknown) (unknown) (no date) (unknown) (unknown) Medication Instructions Recorded Confirmed Type (units unknown) (unknown) (unknown) (no date) (unknown) (unknown) Meds (units unknown) (unknown) (unknown) (no date) (unknown) (unknown) [place] # (Auto) 1500 H (units unknown) (unknown) (unknown) (no date) (unknown) (unknown) [place] # (Auto) (units unknown) (unknown) (unknown) (no date) (unknown) (unknown) [place] % (Auto) 9.2 (units unknown) (unknown) (unknown) (no date) (unknown) (unknown) [place] % (Auto) (units unknown) (unknown) (unknown) (no date) (unknown) (unknown) Mother No significant medical problems (units unknown) (unknown) (unknown) (no date) (unknown) (unknown) NT-Pro-B Natriuret Pep 2810 H (units unknown) (unknown) (unknown) (no date) (unknown) (unknown) NT-Pro-B Natriuret Pep (units unknown) (unknown) (unknown) (no date) (unknown) (unknown) Narrative: (units unknown) (unknown) (unknown) (no date) (unknown) (unknown) Nasal Screen MRSA (PCR) Not detected (units unknown) (unknown) (unknown) (no date) (unknown) (unknown) Nasal Screen MRSA (PCR) (units unknown) (unknown) (unknown) (no date) (unknown) (unknown) Neuropathy of both feet (units unknown) (unknown) (unknown) (no date) (unknown) (unknown) Neut # (Auto) 14602 H (units unknown) (unknown) (unknown) (no date) (unknown) (unknown) Neut # (Auto) (units unknown) (unknown) (unknown) (no date) (unknown) (unknown) Neut % (Auto) 81.5 H (units unknown) (unknown) (unknown) (no date) (unknown) (unknown) Neut % (Auto) (units unknown) (unknown) (unknown) (no date) (unknown) (unknown) Objective (units unknown) (unknown) (unknown) (no date) (unknown) (unknown) On admit patient denies chest pain, shortness in breath, headache, changes in (units unknown) (unknown) (unknown) (no date) (unknown) (unknown) Oxygen Delivery Method Room Air (units unknown) (unknown) (unknown) (no date) (unknown) (unknown) Oxygen Delivery Method (units unknown) (unknown) (unknown) (no date) (unknown) (unknown) Oxygen Flow Rate 0 (units unknown) (unknown) (unknown) (no date) (unknown) (unknown) Oxygen Flow Rate (units unknown) (unknown) (unknown) (no date) (unknown) (unknown) PT 19.2 H (units unknown) (unknown) (unknown) (no date) (unknown) (unknown) PT (units unknown) (unknown) (unknown) (no date) (unknown) (unknown) Patient History (units unknown) (unknown) (unknown) (no date) (unknown) (unknown) Patient states his primary care is through the [facility].? In the ED patient (units unknown) (unknown) (unknown) (no date) (unknown) (unknown) Patient was given an initial dose of diltiazem and then placed on a Dilt drip. (units unknown) (unknown) (unknown) (no date) (unknown) (unknown) Patient: Arvind Brock MR#: [id number] (units unknown) (unknown) (unknown) (no date) (unknown) (unknown) Plt Count 162 (units unknown) (unknown) (unknown) (no date) (unknown) (unknown) Plt Count (units unknown) (unknown) (unknown) (no date) (unknown) (unknown) Potassium 4.5 (units unknown) (unknown) (unknown) (no date) (unknown) (unknown) Potassium (units unknown) (unknown) (unknown) (no date) (unknown) (unknown) Prior Living [facility]rangements [facility] (units unknown) (unknown) (unknown) (no date) (unknown) (unknown) Procalcitonin 0.50 (units unknown) (unknown) (unknown) (no date) (unknown) (unknown) Procalcitonin (units unknown) (unknown) (unknown) (no date) (unknown) (unknown) Provider: Piper Brannon- (units unknown) (unknown) (unknown) (no date) (unknown) (unknown) Pulse Oximetry 93 93 (units unknown) (unknown) (unknown) (no date) (unknown) (unknown) Pulse Oximetry 93 94 (units unknown) (unknown) (unknown) (no date) (unknown) (unknown) Pulse Oximetry 93 (units unknown) (unknown) (unknown) (no date) (unknown) (unknown) Pulse Oximetry 94 94 (units unknown) (unknown) (unknown) (no date) (unknown) (unknown) Pulse Oximetry 94 95 95 (units unknown) (unknown) (unknown) (no date) (unknown) (unknown) Pulse Oximetry 94 95 (units unknown) (unknown) (unknown) (no date) (unknown) (unknown) Pulse Oximetry 94 (units unknown) (unknown) (unknown) (no date) (unknown) (unknown) Pulse Oximetry 95 91 (units unknown) (unknown) (unknown) (no date) (unknown) (unknown) Pulse Oximetry 95 94 94 (units unknown) (unknown) (unknown) (no date) (unknown) (unknown) Pulse Oximetry 95 95 (units unknown) (unknown) (unknown) (no date) (unknown) (unknown) Pulse Oximetry 95 96 (units unknown) (unknown) (unknown) (no date) (unknown) (unknown) Pulse Oximetry 95 (units unknown) (unknown) (unknown) (no date) (unknown) (unknown) Pulse Oximetry 96 (units unknown) (unknown) (unknown) (no date) (unknown) (unknown) Pulse Oximetry 97 98 (units unknown) (unknown) (unknown) (no date) (unknown) (unknown) Pulse Oximetry 99 95 93 (units unknown) (unknown) (unknown) (no date) (unknown) (unknown) Pulse Oximetry 99 (units unknown) (unknown) (unknown) (no date) (unknown) (unknown) Pulse Rate 100 H 104 H (units unknown) (unknown) (unknown) (no date) (unknown) (unknown) Pulse Rate 101 H (units unknown) (unknown) (unknown) (no date) (unknown) (unknown) Pulse Rate 102 H 105 H (units unknown) (unknown) (unknown) (no date) (unknown) (unknown) Pulse Rate 102 H (units unknown) (unknown) (unknown) (no date) (unknown) (unknown) Pulse Rate 104 H 108 H (units unknown) (unknown) (unknown) (no date) (unknown) (unknown) Pulse Rate 104 H (units unknown) (unknown) (unknown) (no date) (unknown) (unknown) Pulse Rate 106 H 110 H (units unknown) (unknown) (unknown) (no date) (unknown) (unknown) Pulse Rate 106 H (units unknown) (unknown) (unknown) (no date) (unknown) (unknown) Pulse Rate 107 H 107 H (units unknown) (unknown) (unknown) (no date) (unknown) (unknown) Pulse Rate 108 H 105 H (units unknown) (unknown) (unknown) (no date) (unknown) (unknown) Pulse Rate 108 H (units unknown) (unknown) (unknown) (no date) (unknown) (unknown) Pulse Rate 109 H (units unknown) (unknown) (unknown) (no date) (unknown) (unknown) Pulse Rate 110 H 109 H (units unknown) (unknown) (unknown) (no date) (unknown) (unknown) Pulse Rate 112 H (units unknown) (unknown) (unknown) (no date) (unknown) (unknown) Pulse Rate 115 H 111 H (units unknown) (unknown) (unknown) (no date) (unknown) (unknown) Pulse Rate 116 H (units unknown) (unknown) (unknown) (no date) (unknown) (unknown) Pulse Rate 123 H 118 H (units unknown) (unknown) (unknown) (no date) (unknown) (unknown) Pulse Rate 135 H (units unknown) (unknown) (unknown) (no date) (unknown) (unknown) Pulse Rate 138 H 126 H (units unknown) (unknown) (unknown) (no date) (unknown) (unknown) Pulse Rate 209 H 172 H 172 H (units unknown) (unknown) (unknown) (no date) (unknown) (unknown) Pulse Rate 92 H 100 H 95 H (units unknown) (unknown) (unknown) (no date) (unknown) (unknown) Pulse Rate 93 H 89 90 (units unknown) (unknown) (unknown) (no date) (unknown) (unknown) Pulse Rate 95 H 86 86 (units unknown) (unknown) (unknown) (no date) (unknown) (unknown) Quality (units unknown) (unknown) (unknown) (no date) (unknown) (unknown) RBC 5.00 (units unknown) (unknown) (unknown) (no date) (unknown) (unknown) RBC (units unknown) (unknown) (unknown) (no date) (unknown) (unknown) RDW 15.3 H (units unknown) (unknown) (unknown) (no date) (unknown) (unknown) RDW (units unknown) (unknown) (unknown) (no date) (unknown) (unknown) RSV (PCR) Negative (units unknown) (unknown) (unknown) (no date) (unknown) (unknown) RSV (PCR) (units unknown) (unknown) (unknown) (no date) (unknown) (unknown) Respiratory Rate 30 H 51 H 53 H (units unknown) (unknown) (unknown) (no date) (unknown) (unknown) Respiratory Rate 30 H (units unknown) (unknown) (unknown) (no date) (unknown) (unknown) Respiratory Rate 31 H 32 H (units unknown) (unknown) (unknown) (no date) (unknown) (unknown) Respiratory Rate 31 H 34 H (units unknown) (unknown) (unknown) (no date) (unknown) (unknown) Respiratory Rate 31 H (units unknown) (unknown) (unknown) (no date) (unknown) (unknown) Respiratory Rate 32 H (units unknown) (unknown) (unknown) (no date) (unknown) (unknown) Respiratory Rate 34 H 32 H 28 H (units unknown) (unknown) (unknown) (no date) (unknown) (unknown) Respiratory Rate 34 H 34 H (units unknown) (unknown) (unknown) (no date) (unknown) (unknown) Respiratory Rate 34 H (units unknown) (unknown) (unknown) (no date) (unknown) (unknown) Respiratory Rate 35 H 31 H 37 H (units unknown) (unknown) (unknown) (no date) (unknown) (unknown) Respiratory Rate 35 H 33 H (units unknown) (unknown) (unknown) (no date) (unknown) (unknown) Respiratory Rate 35 H 36 H (units unknown) (unknown) (unknown) (no date) (unknown) (unknown) Respiratory Rate 35 H (units unknown) (unknown) (unknown) (no date) (unknown) (unknown) Respiratory Rate 36 H 35 H (units unknown) (unknown) (unknown) (no date) (unknown) (unknown) Respiratory Rate 36 H (units unknown) (unknown) (unknown) (no date) (unknown) (unknown) Respiratory Rate 37 H 39 H (units unknown) (unknown) (unknown) (no date) (unknown) (unknown) Respiratory Rate 37 H (units unknown) (unknown) (unknown) (no date) (unknown) (unknown) Respiratory Rate 38 H 37 H (units unknown) (unknown) (unknown) (no date) (unknown) (unknown) Respiratory Rate 38 H (units unknown) (unknown) (unknown) (no date) (unknown) (unknown) Respiratory Rate 39 H (units unknown) (unknown) (unknown) (no date) (unknown) (unknown) Respiratory Rate 40 H 39 H (units unknown) (unknown) (unknown) (no date) (unknown) (unknown) Respiratory Rate 43 H 44 H (units unknown) (unknown) (unknown) (no date) (unknown) (unknown) Respiratory Rate 47 H (units unknown) (unknown) (unknown) (no date) (unknown) (unknown) Respiratory Rate 51 H (units unknown) (unknown) (unknown) (no date) (unknown) (unknown) Review of Systems (units unknown) (unknown) (unknown) (no date) (unknown) (unknown) SARS-CoV-2 (PCR) Negative (units unknown) (unknown) (unknown) (no date) (unknown) (unknown) SARS-CoV-2 (PCR) (units unknown) (unknown) (unknown) (no date) (unknown) (unknown) Safety + Behavioral: (units unknown) (unknown) (unknown) (no date) (unknown) (unknown) Signed By: (units unknown) (unknown) (unknown) (no date) (unknown) (unknown) Smoking Status Never smoker (units unknown) (unknown) (unknown) (no date) (unknown) (unknown) Social History: (units unknown) (unknown) (unknown) (no date) (unknown) (unknown) Sodium 128 L (units unknown) (unknown) (unknown) (no date) (unknown) (unknown) Sodium (units unknown) (unknown) (unknown) (no date) (unknown) (unknown) Substance Use Type does not use (units unknown) (unknown) (unknown) (no date) (unknown) (unknown) Surgical History (units unknown) (unknown) (unknown) (no date) (unknown) (unknown) Temperature 100.9 F H (units unknown) (unknown) (unknown) (no date) (unknown) (unknown) Temperature 101 F H (units unknown) (unknown) (unknown) (no date) (unknown) (unknown) Temperature 101.1 F H (units unknown) (unknown) (unknown) (no date) (unknown) (unknown) Temperature (units unknown) (unknown) (unknown) (no date) (unknown) (unknown) Threatened By a Person (units unknown) (unknown) (unknown) (no date) (unknown) (unknown) Time Patient Seen: 20:27 (units unknown) (unknown) (unknown) (no date) (unknown) (unknown) Tobacco + Substance use: (units unknown) (unknown) (unknown) (no date) (unknown) (unknown) Total Bilirubin 1.2 (units unknown) (unknown) (unknown) (no date) (unknown) (unknown) Total Bilirubin (units unknown) (unknown) (unknown) (no date) (unknown) (unknown) Total Creatine Kinase 133 (units unknown) (unknown) (unknown) (no date) (unknown) (unknown) Total Creatine Kinase (units unknown) (unknown) (unknown) (no date) (unknown) (unknown) Total Protein 7.7 (units unknown) (unknown) (unknown) (no date) (unknown) (unknown) Total Protein (units unknown) (unknown) (unknown) (no date) (unknown) (unknown) Troponin I 0.016 (units unknown) (unknown) (unknown) (no date) (unknown) (unknown) Troponin I (units unknown) (unknown) (unknown) (no date) (unknown) (unknown) U-100 Insulin) (units unknown) (unknown) (unknown) (no date) (unknown) (unknown) VTE (units unknown) (unknown) (unknown) (no date) (unknown) (unknown) Vital Signs (units unknown) (unknown) (unknown) (no date) (unknown) (unknown) WBC 15.9 H (units unknown) (unknown) (unknown) (no date) (unknown) (unknown) WBC (units unknown) (unknown) (unknown) (no date) (unknown) (unknown) [Embedded Image Not Available] (units unknown) (unknown) (unknown) (no date) (unknown) (unknown) a Dilt drip. (units unknown) (unknown) (unknown) (no date) (unknown) (unknown) admitted to the ICU teleICU for atrial fibrillation with RVR, sepsis without (units unknown) (unknown) (unknown) (no date) (unknown) (unknown) afebrile temp 101?, hypertensive urgency BP 193/91, 183/84, tachycardic heart (units unknown) (unknown) (unknown) (no date) (unknown) (unknown) air-patient is stable in no distress sleeping heavily. Currently diltiazem drip (units unknown) (unknown) (unknown) (no date) (unknown) (unknown) alcohol intake frequency other (units unknown) (unknown) (unknown) (no date) (unknown) (unknown) alcohol intake never (units unknown) (unknown) (unknown) (no date) (unknown) (unknown) body aches, chills, cough, denies recent exposure to illness, abdominal pain, (units unknown) (unknown) (unknown) (no date) (unknown) (unknown) changes, constipation, incontinence, melena, rashes, recent changes to (units unknown) (unknown) (unknown) (no date) (unknown) (unknown) comparison to EKG from 12/18/2022, last echo 11/2022 EF 35-40%. Patient (units unknown) (unknown) (unknown) (no date) (unknown) (unknown) difficulty with ambulation, recent falls, head injury, LOC, currently no fever, (units unknown) (unknown) (unknown) (no date) (unknown) (unknown) documented. (units unknown) (unknown) (unknown) (no date) (unknown) (unknown) fibrillation. Patient was given an initial dose of diltiazem and then placed on (units unknown) (unknown) (unknown) (no date) (unknown) (unknown) for the past week, nausea and vomiting on way to the hospital. Patient was sent (units unknown) (unknown) (unknown) (no date) (unknown) (unknown) frequently noncompliant with medications, and does not follow with Cardiology. (units unknown) (unknown) (unknown) (no date) (unknown) (unknown) has been fast, fever x 5 days, patient is a poor historian but verbalizes that (units unknown) (unknown) (unknown) (no date) (unknown) (unknown) he may have had increased swelling redness and pain of the left lower extremity (units unknown) (unknown) (unknown) (no date) (unknown) (unknown) heart rates up to 209, tachypneic respiratory rates 30-50 in atrial (units unknown) (unknown) (unknown) (no date) (unknown) (unknown) household members spouse (units unknown) (unknown) (unknown) (no date) (unknown) (unknown) hypotension 102/59, 98/54, map 75, HR 86 Afib, RR 20, O2 saturation 94% on room (units unknown) (unknown) (unknown) (no date) (unknown) (unknown) in November and was not taking medications regularly at that time.? Patient (units unknown) (unknown) (unknown) (no date) (unknown) (unknown) in comparison to EKG from 12/18/2022, last echo 11/2022 EF 35-40%. Patient (units unknown) (unknown) (unknown) (no date) (unknown) (unknown) initial lactate 3.2, repeat 1. Sodium 128, Cl 96, BUN 24, bicarb 19, glucose (units unknown) (unknown) (unknown) (no date) (unknown) (unknown) insulin glargine 100 unit/mL 12 unit SUBCUT BEDTIME 05/11/20 01/15/23 History (units unknown) (unknown) (unknown) (no date) (unknown) (unknown) lisinopril 5 mg tablet 5 mg PO DAILY 90 days #90 tabs 12/21/22 01/15/23 Rx (units unknown) (unknown) (unknown) (no date) (unknown) (unknown) medication, illness, injury, or trauma. (units unknown) (unknown) (unknown) (no date) (unknown) (unknown) metformin 500 mg tablet 500 mg PO BID 05/11/20 01/15/23 History (units unknown) (unknown) (unknown) (no date) (unknown) (unknown) metoprolol succinate 50 mg 50 mg PO BID 90 days #180 tabs 12/21/22 01/15/23 Rx (units unknown) (unknown) (unknown) (no date) (unknown) (unknown) negative for, FiO2 21. WBC 15.9, newt 13,000, mono 1500 procalcitonin 0.5, (units unknown) (unknown) (unknown) (no date) (unknown) (unknown) negative, COVID influenza a/B/RSV are all negative. Chest x-ray mild pulmonary (units unknown) (unknown) (unknown) (no date) (unknown) (unknown) neuropathy, HTN, HLD, and neuropathy. In ED was primary historian she is (units unknown) (unknown) (unknown) (no date) (unknown) (unknown) noncompliant with medications, and does not follow with Cardiology. Patient (units unknown) (unknown) (unknown) (no date) (unknown) (unknown) piperacillin [From Zosyn] Allergy Severe Uticaria Verified 05/11/20 22:50 (units unknown) (unknown) (unknown) (no date) (unknown) (unknown) presents with 5 days of fevers generally feeling unwell he states his heart rate (units unknown) (unknown) (unknown) (no date) (unknown) (unknown) rate of 169, negative acute ST changes, depression in lead 1 and aVL, similar in (units unknown) (unknown) (unknown) (no date) (unknown) (unknown) rate of 169, negative acute ST changes, depression in lead 1 and aVL, similar (units unknown) (unknown) (unknown) (no date) (unknown) (unknown) rates up to 209, tachypneic respiratory rates 30-50 in atrial fibrillation. (units unknown) (unknown) (unknown) (no date) (unknown) (unknown) rivaroxaban 20 mg tablet (Xarelto) 20 mg PO QPM 05/11/20 01/15/23 History (units unknown) (unknown) (unknown) (no date) (unknown) (unknown) shock secondary to left lower extremity cellulitis, hyponatremia (units unknown) (unknown) (unknown) (no date) (unknown) (unknown) states his primary care is through the [facility].? In the ED patient was (units unknown) (unknown) (unknown) (no date) (unknown) (unknown) subcutaneous solution (Lantus (units unknown) (unknown) (unknown) (no date) (unknown) (unknown) tablet,extended release 24 hr (units unknown) (unknown) (unknown) (no date) (unknown) (unknown) tazobactam [From Zosyn] Allergy Severe Uticaria Verified 05/11/20 22:50 (units unknown) (unknown) (unknown) (no date) (unknown) (unknown) to be extremely resistant to coming into the emergency department, is frequently (units unknown) (unknown) (unknown) (no date) (unknown) (unknown) to be extremely resistant to coming into the emergency department, is (units unknown) (unknown) (unknown) (no date) (unknown) (unknown) unsure if he is taking his medications regularly.? He was admitted for AFib RVR (units unknown) (unknown) (unknown) (no date) (unknown) (unknown) urinary incontinence/retent ion, dysuria, frequency, urgency, hematuria, bowel (units unknown) (unknown) (unknown) (no date) (unknown) (unknown) vascular congestion. I personally reviewed all imaging and EKG. EKG: AFib RVR (units unknown) (unknown) (unknown) (no date) (unknown) (unknown) vision, difficulty swallowing, speech impairment, weakness, numbness, tingling, (units unknown) (unknown) (unknown) (no date) (unknown) (unknown) was afebrile temp 101?, hypertensive urgency BP 193/91, 183/84, tachycardic (units unknown) (unknown) Result panel 435 (unknown) (no date) (unknown) (unknown) (no value) (units unknown) (unknown) (unknown) (no date) (unknown) (unknown) (past 8 hours): (units unknown) (unknown) (unknown) (no date) (unknown) (unknown) -Admit 110/55, MAP 81, Afib, RR 20, O2 saturation 94% on room air (units unknown) (unknown) (unknown) (no date) (unknown) (unknown) -I personally reviewed all imaging and EKG. EKG: AFib RVR rate of 169, (units unknown) (unknown) (unknown) (no date) (unknown) (unknown) -In ED Hr up to 209 (units unknown) (unknown) (unknown) (no date) (unknown) (unknown) -continue Xarelto (units unknown) (unknown) (unknown) (no date) (unknown) (unknown) -last echo 11/2022 EF 35-40%. (units unknown) (unknown) (unknown) (no date) (unknown) (unknown) -patient admitted to the ICU/tele head nurse (units unknown) (unknown) (unknown) (no date) (unknown) (unknown) -patient has been noncompliant with Cardiology follow-up and medications (units unknown) (unknown) (unknown) (no date) (unknown) (unknown) -patient has diabetes with a history of osteomyelitis, 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 (units unknown) (unknown) (unknown) (no date) (unknown) (unknown) -patient was placed on diltiazem drip in the ED-currently on 2.5 (units unknown) (unknown) (unknown) (no date) (unknown) (unknown) -restart metoprolol 50 mg b.i.d in am (units unknown) (unknown) (unknown) (no date) (unknown) (unknown) -will leave patient on drip overnight for rest (units unknown) (unknown) (unknown) (no date) (unknown) (unknown) [id number] (units unknown) (unknown) (unknown) (no date) (unknown) (unknown) 01/15/23 01/15/23 01/15/23 (units unknown) (unknown) (unknown) (no date) (unknown) (unknown) 01/15/23 01/15/23 (units unknown) (unknown) (unknown) (no date) (unknown) (unknown) 01/15/23 15:25 (units unknown) (unknown) (unknown) (no date) (unknown) (unknown) 01/15/23 (units unknown) (unknown) (unknown) (no date) (unknown) (unknown) 1. Atrial fibrillation with RVR, acute on chronic, present on admission (units unknown) (unknown) (unknown) (no date) (unknown) (unknown) 15:25 15:25 15:25 (units unknown) (unknown) (unknown) (no date) (unknown) (unknown) 15:25 15:25 15:49 (units unknown) (unknown) (unknown) (no date) (unknown) (unknown) 15:26 01/15/23 (units unknown) (unknown) (unknown) (no date) (unknown) (unknown) 15:27 01/15/23 (units unknown) (unknown) (unknown) (no date) (unknown) (unknown) 15:27 (units unknown) (unknown) (unknown) (no date) (unknown) (unknown) 15:29 01/15/23 (units unknown) (unknown) (unknown) (no date) (unknown) (unknown) 15:30 01/15/23 (units unknown) (unknown) (unknown) (no date) (unknown) (unknown) 15:30 (units unknown) (unknown) (unknown) (no date) (unknown) (unknown) 15:35 01/15/23 (units unknown) (unknown) (unknown) (no date) (unknown) (unknown) 15:40 (units unknown) (unknown) (unknown) (no date) (unknown) (unknown) 15:45 01/15/23 (units unknown) (unknown) (unknown) (no date) (unknown) (unknown) 15:48 01/15/23 (units unknown) (unknown) (unknown) (no date) (unknown) (unknown) 15:48 (units unknown) (unknown) (unknown) (no date) (unknown) (unknown) 15:50 01/15/23 (units unknown) (unknown) (unknown) (no date) (unknown) (unknown) 15:55 01/15/23 (units unknown) (unknown) (unknown) (no date) (unknown) (unknown) 15:55 (units unknown) (unknown) (unknown) (no date) (unknown) (unknown) 16:00 01/15/23 (units unknown) (unknown) (unknown) (no date) (unknown) (unknown) 16:00 (units unknown) (unknown) (unknown) (no date) (unknown) (unknown) 16:05 01/15/23 (units unknown) (unknown) (unknown) (no date) (unknown) (unknown) 16:10 01/15/23 (units unknown) (unknown) (unknown) (no date) (unknown) (unknown) 16:10 (units unknown) (unknown) (unknown) (no date) (unknown) (unknown) 16:15 01/15/23 (units unknown) (unknown) (unknown) (no date) (unknown) (unknown) 16:15 (units unknown) (unknown) (unknown) (no date) (unknown) (unknown) 16:20 01/15/23 (units unknown) (unknown) (unknown) (no date) (unknown) (unknown) 16:25 01/15/23 (units unknown) (unknown) (unknown) (no date) (unknown) (unknown) 16:25 (units unknown) (unknown) (unknown) (no date) (unknown) (unknown) 16:30 01/15/23 (units unknown) (unknown) (unknown) (no date) (unknown) (unknown) 16:30 (units unknown) (unknown) (unknown) (no date) (unknown) (unknown) 16:35 01/15/23 (units unknown) (unknown) (unknown) (no date) (unknown) (unknown) 16:40 01/15/23 (units unknown) (unknown) (unknown) (no date) (unknown) (unknown) 16:45 01/15/23 (units unknown) (unknown) (unknown) (no date) (unknown) (unknown) 16:45 (units unknown) (unknown) (unknown) (no date) (unknown) (unknown) 16:50 01/15/23 (units unknown) (unknown) (unknown) (no date) (unknown) (unknown) 16:50 (units unknown) (unknown) (unknown) (no date) (unknown) (unknown) 16:51 (units unknown) (unknown) (unknown) (no date) (unknown) (unknown) 16:55 01/15/23 (units unknown) (unknown) (unknown) (no date) (unknown) (unknown) 17:00 01/15/23 (units unknown) (unknown) (unknown) (no date) (unknown) (unknown) 17:00 (units unknown) (unknown) (unknown) (no date) (unknown) (unknown) 17:05 01/15/23 (units unknown) (unknown) (unknown) (no date) (unknown) (unknown) 17:05 (units unknown) (unknown) (unknown) (no date) (unknown) (unknown) 17:10 01/15/23 (units unknown) (unknown) (unknown) (no date) (unknown) (unknown) 17:15 01/15/23 (units unknown) (unknown) (unknown) (no date) (unknown) (unknown) 17:15 (units unknown) (unknown) (unknown) (no date) (unknown) (unknown) 17:20 01/15/23 (units unknown) (unknown) (unknown) (no date) (unknown) (unknown) 17:20 (units unknown) (unknown) (unknown) (no date) (unknown) (unknown) 17:25 01/15/23 (units unknown) (unknown) (unknown) (no date) (unknown) (unknown) 17:30 01/15/23 (units unknown) (unknown) (unknown) (no date) (unknown) (unknown) 17:30 (units unknown) (unknown) (unknown) (no date) (unknown) (unknown) 17:35 01/15/23 (units unknown) (unknown) (unknown) (no date) (unknown) (unknown) 17:35 (units unknown) (unknown) (unknown) (no date) (unknown) (unknown) 17:40 01/15/23 (units unknown) (unknown) (unknown) (no date) (unknown) (unknown) 17:45 01/15/23 (units unknown) (unknown) (unknown) (no date) (unknown) (unknown) 17:45 (units unknown) (unknown) (unknown) (no date) (unknown) (unknown) 17:50 01/15/23 (units unknown) (unknown) (unknown) (no date) (unknown) (unknown) 17:50 (units unknown) (unknown) (unknown) (no date) (unknown) (unknown) 17:55 01/15/23 (units unknown) (unknown) (unknown) (no date) (unknown) (unknown) 17:55 (units unknown) (unknown) (unknown) (no date) (unknown) (unknown) 183/84, tachycardic heart rates up to 209, tachypneic respiratory rates 30-50 in (units unknown) (unknown) (unknown) (no date) (unknown) (unknown) 18:07 (units unknown) (unknown) (unknown) (no date) (unknown) (unknown) 18:11 01/15/23 (units unknown) (unknown) (unknown) (no date) (unknown) (unknown) 18:15 01/15/23 (units unknown) (unknown) (unknown) (no date) (unknown) (unknown) 18:15 19:10 (units unknown) (unknown) (unknown) (no date) (unknown) (unknown) 18:20 (units unknown) (unknown) (unknown) (no date) (unknown) (unknown) 18:25 01/15/23 (units unknown) (unknown) (unknown) (no date) (unknown) (unknown) 18:26 01/15/23 (units unknown) (unknown) (unknown) (no date) (unknown) (unknown) 18:30 01/15/23 (units unknown) (unknown) (unknown) (no date) (unknown) (unknown) 18:35 (units unknown) (unknown) (unknown) (no date) (unknown) (unknown) 18:40 01/15/23 (units unknown) (unknown) (unknown) (no date) (unknown) (unknown) 18:45 01/15/23 (units unknown) (unknown) (unknown) (no date) (unknown) (unknown) 18:50 (units unknown) (unknown) (unknown) (no date) (unknown) (unknown) 2. Sepsis without septic shock, metabolic, likely secondary to left leg (units unknown) (unknown) (unknown) (no date) (unknown) (unknown) 2.5. VBG: PH 7.44, pCO2 30.5, PO2 34, bicarb 21, TCO2 21, O2 sat 69%, BE (units unknown) (unknown) (unknown) (no date) (unknown) (unknown) 252, Mag 1.2, PT 19.2, INR 1.7, lipase 367, BNP 2810, sofa score:2, anion gap (units unknown) (unknown) (unknown) (no date) (unknown) (unknown) 3rd toe amputation in 2019 (units unknown) (unknown) (unknown) (no date) (unknown) (unknown) 5 days, patient is a poor historian but verbalizes that he may have had (units unknown) (unknown) (unknown) (no date) (unknown) (unknown) ALT 29 (units unknown) (unknown) (unknown) (no date) (unknown) (unknown) ALT (units unknown) (unknown) (unknown) (no date) (unknown) (unknown) APTT 33 (units unknown) (unknown) (unknown) (no date) (unknown) (unknown) APTT (units unknown) (unknown) (unknown) (no date) (unknown) (unknown) AST 32 (units unknown) (unknown) (unknown) (no date) (unknown) (unknown) AST (units unknown) (unknown) (unknown) (no date) (unknown) (unknown) Abdomen: Soft nontender, negative for organomegaly, or masses. Bowel sounds (units unknown) (unknown) (unknown) (no date) (unknown) (unknown) Afib (units unknown) (unknown) (unknown) (no date) (unknown) (unknown) Age/Sex: 67 / M (units unknown) (unknown) (unknown) (no date) (unknown) (unknown) Albumin 4.1 (units unknown) (unknown) (unknown) (no date) (unknown) (unknown) Albumin (units unknown) (unknown) (unknown) (no date) (unknown) (unknown) Albumin/Globulin Ratio 1.1 (units unknown) (unknown) (unknown) (no date) (unknown) (unknown) Albumin/Globulin Ratio (units unknown) (unknown) (unknown) (no date) (unknown) (unknown) Alkaline Phosphatase 97 (units unknown) (unknown) (unknown) (no date) (unknown) (unknown) Alkaline Phosphatase (units unknown) (unknown) (unknown) (no date) (unknown) (unknown) All 12 point systems reviewed with the patient and are negative except otherwise (units unknown) (unknown) (unknown) (no date) (unknown) (unknown) Allergies (units unknown) (unknown) (unknown) (no date) (unknown) (unknown) Allergy/AdvReac Type Severity Reaction Status Date / Time (units unknown) (unknown) (unknown) (no date) (unknown) (unknown) Assessment + Plan narrative: (units unknown) (unknown) (unknown) (no date) (unknown) (unknown) Assessment + Plan (units unknown) (unknown) (unknown) (no date) (unknown) (unknown) At the time of admit continued to have a low-grade fever 100.9, developed (units unknown) (unknown) (unknown) (no date) (unknown) (unknown) BUN 24 H (units unknown) (unknown) (unknown) (no date) (unknown) (unknown) BUN (units unknown) (unknown) (unknown) (no date) (unknown) (unknown) BUN/Creatinine Ratio 21.4 (units unknown) (unknown) (unknown) (no date) (unknown) (unknown) BUN/Creatinine Ratio (units unknown) (unknown) (unknown) (no date) (unknown) (unknown) Baso # (Auto) 0 (units unknown) (unknown) (unknown) (no date) (unknown) (unknown) Baso # (Auto) (units unknown) (unknown) (unknown) (no date) (unknown) (unknown) Baso % (Auto) 0.3 (units unknown) (unknown) (unknown) (no date) (unknown) (unknown) Baso % (Auto) (units unknown) (unknown) (unknown) (no date) (unknown) (unknown) Been Physically Hurt or No (units unknown) (unknown) (unknown) (no date) (unknown) (unknown) Blood Pressure 102/59 L (units unknown) (unknown) (unknown) (no date) (unknown) (unknown) Blood Pressure 105/57 L (units unknown) (unknown) (unknown) (no date) (unknown) (unknown) Blood Pressure 106/58 L (units unknown) (unknown) (unknown) (no date) (unknown) (unknown) Blood Pressure 107/53 L (units unknown) (unknown) (unknown) (no date) (unknown) (unknown) Blood Pressure 108/58 L 104/54 L (units unknown) (unknown) (unknown) (no date) (unknown) (unknown) Blood Pressure 113/55 L 114/58 L (units unknown) (unknown) (unknown) (no date) (unknown) (unknown) Blood Pressure 113/58 L 108/59 L (units unknown) (unknown) (unknown) (no date) (unknown) (unknown) Blood Pressure 114/56 L 96/54 L (units unknown) (unknown) (unknown) (no date) (unknown) (unknown) Blood Pressure 115/58 L (units unknown) (unknown) (unknown) (no date) (unknown) (unknown) Blood Pressure 119/66 130/56 L (units unknown) (unknown) (unknown) (no date) (unknown) (unknown) Blood Pressure 120/56 L 126/61 (units unknown) (unknown) (unknown) (no date) (unknown) (unknown) Blood Pressure 122/57 L (units unknown) (unknown) (unknown) (no date) (unknown) (unknown) Blood Pressure 123/72 117/56 L (units unknown) (unknown) (unknown) (no date) (unknown) (unknown) Blood Pressure 125/58 L (units unknown) (unknown) (unknown) (no date) (unknown) (unknown) Blood Pressure 125/63 (units unknown) (unknown) (unknown) (no date) (unknown) (unknown) Blood Pressure 126/58 L (units unknown) (unknown) (unknown) (no date) (unknown) (unknown) Blood Pressure 127/57 L (units unknown) (unknown) (unknown) (no date) (unknown) (unknown) Blood Pressure 143/63 H (units unknown) (unknown) (unknown) (no date) (unknown) (unknown) Blood Pressure 156/60 H 122/58 L (units unknown) (unknown) (unknown) (no date) (unknown) (unknown) Blood Pressure 172/92 H (units unknown) (unknown) (unknown) (no date) (unknown) (unknown) Blood Pressure 183/84 H 140/69 (units unknown) (unknown) (unknown) (no date) (unknown) (unknown) Blood Pressure 193/91 H (units unknown) (unknown) (unknown) (no date) (unknown) (unknown) Blood Pressure 98/54 L (units unknown) (unknown) (unknown) (no date) (unknown) (unknown) Blood Pressure (units unknown) (unknown) (unknown) (no date) (unknown) (unknown) CK-MB (CK-2) 1.09 (units unknown) (unknown) (unknown) (no date) (unknown) (unknown) CK-MB (CK-2) Rel Index 0.8 L (units unknown) (unknown) (unknown) (no date) (unknown) (unknown) CK-MB (CK-2) Rel Index (units unknown) (unknown) (unknown) (no date) (unknown) (unknown) CK-MB (CK-2) (units unknown) (unknown) (unknown) (no date) (unknown) (unknown) Calcium 8.9 (units unknown) (unknown) (unknown) (no date) (unknown) (unknown) Calcium (units unknown) (unknown) (unknown) (no date) (unknown) (unknown) Carbon Dioxide 19 L (units unknown) (unknown) (unknown) (no date) (unknown) (unknown) Carbon Dioxide (units unknown) (unknown) (unknown) (no date) (unknown) (unknown) Cardio: regular rate and rhythm without murmur, rubs, or gallops, no carotid (units unknown) (unknown) (unknown) (no date) (unknown) (unknown) Chest: Normal AP diameter and contour without kyphoscoliosis, no nasal flaring, (units unknown) (unknown) (unknown) (no date) (unknown) (unknown) Chief complaint: vomiting/shaking/fe trell (units unknown) (unknown) (unknown) (no date) (unknown) (unknown) Chloride 96 L (units unknown) (unknown) (unknown) (no date) (unknown) (unknown) Chloride (units unknown) (unknown) (unknown) (no date) (unknown) (unknown) Creatinine 1.12 (units unknown) (unknown) (unknown) (no date) (unknown) (unknown) Creatinine (units unknown) (unknown) (unknown) (no date) (unknown) (unknown) : 1955 Acct:[id number] (units unknown) (unknown) (unknown) (no date) (unknown) (unknown) Date Patient Seen: 01/15/23 (units unknown) (unknown) (unknown) (no date) (unknown) (unknown) Date of Service: 01/15/23 (units unknown) (unknown) (unknown) (no date) (unknown) (unknown) Deep Vein Thrombosis/Pulmonar y Embolism Present on Admission: No (units unknown) (unknown) (unknown) (no date) (unknown) (unknown) Diabetes mellitus (units unknown) (unknown) (unknown) (no date) (unknown) (unknown) Diabetes (units unknown) (unknown) (unknown) (no date) (unknown) (unknown) Environment (units unknown) (unknown) (unknown) (no date) (unknown) (unknown) Eos # (Auto) 0 (units unknown) (unknown) (unknown) (no date) (unknown) (unknown) Eos # (Auto) (units unknown) (unknown) (unknown) (no date) (unknown) (unknown) Eos % (Auto) 0.0 L (units unknown) (unknown) (unknown) (no date) (unknown) (unknown) Eos % (Auto) (units unknown) (unknown) (unknown) (no date) (unknown) (unknown) Estimated GFR > 60 (units unknown) (unknown) (unknown) (no date) (unknown) (unknown) Estimated GFR (units unknown) (unknown) (unknown) (no date) (unknown) (unknown) Exam Narrative: (units unknown) (unknown) (unknown) (no date) (unknown) (unknown) Exam (units unknown) (unknown) (unknown) (no date) (unknown) (unknown) Family + Social History (units unknown) (unknown) (unknown) (no date) (unknown) (unknown) Family History (units unknown) (unknown) (unknown) (no date) (unknown) (unknown) Father Smoker (units unknown) (unknown) (unknown) (no date) (unknown) (unknown) Feels Safe in Current Yes (units unknown) (unknown) (unknown) (no date) (unknown) (unknown) General: Patient is a well-developed, well-nourished in no distress at this (units unknown) (unknown) (unknown) (no date) (unknown) (unknown) Globulin 3.6 (units unknown) (unknown) (unknown) (no date) (unknown) (unknown) Globulin (units unknown) (unknown) (unknown) (no date) (unknown) (unknown) Glucose 252 H (units unknown) (unknown) (unknown) (no date) (unknown) (unknown) Glucose (units unknown) (unknown) (unknown) (no date) (unknown) (unknown) HEENT: Normocephalic, atraumatic, extraocular muscles intact, oral pharynx is (units unknown) (unknown) (unknown) (no date) (unknown) (unknown) Hct 43.2 (units unknown) (unknown) (unknown) (no date) (unknown) (unknown) Hct (units unknown) (unknown) (unknown) (no date) (unknown) (unknown) Heart attack (units unknown) (unknown) (unknown) (no date) (unknown) (unknown) Hgb 14.6 (units unknown) (unknown) (unknown) (no date) (unknown) (unknown) Hgb (units unknown) (unknown) (unknown) (no date) (unknown) (unknown) History + Physical Report (units unknown) (unknown) (unknown) (no date) (unknown) (unknown) History of Present Illness (units unknown) (unknown) (unknown) (no date) (unknown) (unknown) History of hernia repair (units unknown) (unknown) (unknown) (no date) (unknown) (unknown) History of neck surgery (units unknown) (unknown) (unknown) (no date) (unknown) (unknown) Home Medications and Allergies (units unknown) (unknown) (unknown) (no date) (unknown) (unknown) Home Medications (units unknown) (unknown) (unknown) (no date) (unknown) (unknown) Hyperlipidemia (units unknown) (unknown) (unknown) (no date) (unknown) (unknown) Hypertension (units unknown) (unknown) (unknown) (no date) (unknown) (unknown) INR 1.7 H (units unknown) (unknown) (unknown) (no date) (unknown) (unknown) INR (units unknown) (unknown) (unknown) (no date) (unknown) (unknown) In the ED patient was afebrile temp 101?, hypertensive urgency BP 193/91, (units unknown) (unknown) (unknown) (no date) (unknown) (unknown) Influenza A (RT-PCR) Flu a negative (units unknown) (unknown) (unknown) (no date) (unknown) (unknown) Influenza A (RT-PCR) (units unknown) (unknown) (unknown) (no date) (unknown) (unknown) Influenza B (RT-PCR) Flu b negative (units unknown) (unknown) (unknown) (no date) (unknown) (unknown) Influenza B (RT-PCR) (units unknown) (unknown) (unknown) (no date) (unknown) (unknown) [address] [id number] (units unknown) (unknown) (unknown) (no date) (unknown) (unknown) Arvind Brock is a 67yo M with PMH of A-fib on [place] [id number] with peripheral (units unknown) (unknown) (unknown) (no date) (unknown) (unknown) Laboratory Results - last 24 hr (units unknown) (unknown) (unknown) (no date) (unknown) (unknown) Labs (units unknown) (unknown) (unknown) (no date) (unknown) (unknown) Labs: (units unknown) (unknown) (unknown) (no date) (unknown) (unknown) Lactate 1.0 (units unknown) (unknown) (unknown) (no date) (unknown) (unknown) Lactate 3.2 H (units unknown) (unknown) (unknown) (no date) (unknown) (unknown) Lactate (units unknown) (unknown) (unknown) (no date) (unknown) (unknown) Lipase 367 H (units unknown) (unknown) (unknown) (no date) (unknown) (unknown) Lipase (units unknown) (unknown) (unknown) (no date) (unknown) (unknown) Lungs: Auscultation of all lung neff are clear without adventitious sounds, (units unknown) (unknown) (unknown) (no date) (unknown) (unknown) Lymph # (Auto) 1400 (units unknown) (unknown) (unknown) (no date) (unknown) (unknown) Lymph # (Auto) (units unknown) (unknown) (unknown) (no date) (unknown) (unknown) Lymph % (Auto) 9.0 L (units unknown) (unknown) (unknown) (no date) (unknown) (unknown) Lymph % (Auto) (units unknown) (unknown) (unknown) (no date) (unknown) (unknown) MCH 29.3 (units unknown) (unknown) (unknown) (no date) (unknown) (unknown) MCH (units unknown) (unknown) (unknown) (no date) (unknown) (unknown) MCHC 33.8 (units unknown) (unknown) (unknown) (no date) (unknown) (unknown) MCHC (units unknown) (unknown) (unknown) (no date) (unknown) (unknown) MCV 86.5 (units unknown) (unknown) (unknown) (no date) (unknown) (unknown) MCV (units unknown) (unknown) (unknown) (no date) (unknown) (unknown) Magnesium 1.2 L (units unknown) (unknown) (unknown) (no date) (unknown) (unknown) Magnesium (units unknown) (unknown) (unknown) (no date) (unknown) (unknown) Medical History (units unknown) (unknown) (unknown) (no date) (unknown) (unknown) Medication Instructions Recorded Confirmed Type (units unknown) (unknown) (unknown) (no date) (unknown) (unknown) Meds (units unknown) (unknown) (unknown) (no date) (unknown) (unknown) [place] # (Auto) 1500 H (units unknown) (unknown) (unknown) (no date) (unknown) (unknown) [place] # (Auto) (units unknown) (unknown) (unknown) (no date) (unknown) (unknown) [place] % (Auto) 9.2 (units unknown) (unknown) (unknown) (no date) (unknown) (unknown) [place] % (Auto) (units unknown) (unknown) (unknown) (no date) (unknown) (unknown) Mother No significant medical problems (units unknown) (unknown) (unknown) (no date) (unknown) (unknown) Musculoskeletal: Bilateral lower extremity edema, left greater than right, left (units unknown) (unknown) (unknown) (no date) (unknown) (unknown) NT-Pro-B Natriuret Pep 2810 H (units unknown) (unknown) (unknown) (no date) (unknown) (unknown) NT-Pro-B Natriuret Pep (units unknown) (unknown) (unknown) (no date) (unknown) (unknown) Narrative (units unknown) (unknown) (unknown) (no date) (unknown) (unknown) Narrative: (units unknown) (unknown) (unknown) (no date) (unknown) (unknown) Nasal Screen MRSA (PCR) Not detected (units unknown) (unknown) (unknown) (no date) (unknown) (unknown) Nasal Screen MRSA (PCR) (units unknown) (unknown) (unknown) (no date) (unknown) (unknown) Negative for JVD (units unknown) (unknown) (unknown) (no date) (unknown) (unknown) Neuro: Alert and orientated x3, moves all extremities, sensation to touch (units unknown) (unknown) (unknown) (no date) (unknown) (unknown) Neuropathy of both feet (units unknown) (unknown) (unknown) (no date) (unknown) (unknown) Neut # (Auto) 95976 H (units unknown) (unknown) (unknown) (no date) (unknown) (unknown) Neut # (Auto) (units unknown) (unknown) (unknown) (no date) (unknown) (unknown) Neut % (Auto) 81.5 H (units unknown) (unknown) (unknown) (no date) (unknown) (unknown) Neut % (Auto) (units unknown) (unknown) (unknown) (no date) (unknown) (unknown) Objective (units unknown) (unknown) (unknown) (no date) (unknown) (unknown) On admit patient denies chest pain, shortness in breath, headache, changes in (units unknown) (unknown) (unknown) (no date) (unknown) (unknown) Oxygen Delivery Method Room Air (units unknown) (unknown) (unknown) (no date) (unknown) (unknown) Oxygen Delivery Method (units unknown) (unknown) (unknown) (no date) (unknown) (unknown) Oxygen Flow Rate 0 (units unknown) (unknown) (unknown) (no date) (unknown) (unknown) Oxygen Flow Rate (units unknown) (unknown) (unknown) (no date) (unknown) (unknown) PT 19.2 H (units unknown) (unknown) (unknown) (no date) (unknown) (unknown) PT (units unknown) (unknown) (unknown) (no date) (unknown) (unknown) Patient History (units unknown) (unknown) (unknown) (no date) (unknown) (unknown) Patient was given an initial dose of diltiazem and then placed on a Dilt drip. (units unknown) (unknown) (unknown) (no date) (unknown) (unknown) Patient: Arvind Brock MR#: [id number] (units unknown) (unknown) (unknown) (no date) (unknown) (unknown) Plt Count 162 (units unknown) (unknown) (unknown) (no date) (unknown) (unknown) Plt Count (units unknown) (unknown) (unknown) (no date) (unknown) (unknown) Potassium 4.5 (units unknown) (unknown) (unknown) (no date) (unknown) (unknown) Potassium (units unknown) (unknown) (unknown) (no date) (unknown) (unknown) Prior Living [facility]rangements House (units unknown) (unknown) (unknown) (no date) (unknown) (unknown) Procalcitonin 0.50 (units unknown) (unknown) (unknown) (no date) (unknown) (unknown) Procalcitonin (units unknown) (unknown) (unknown) (no date) (unknown) (unknown) Provider: Piper Brannon (units unknown) (unknown) (unknown) (no date) (unknown) (unknown) Psych: Patient has a well-kept appearance, appropriate affect, mental status (units unknown) (unknown) (unknown) (no date) (unknown) (unknown) Pulse Oximetry 93 93 (units unknown) (unknown) (unknown) (no date) (unknown) (unknown) Pulse Oximetry 93 94 (units unknown) (unknown) (unknown) (no date) (unknown) (unknown) Pulse Oximetry 93 (units unknown) (unknown) (unknown) (no date) (unknown) (unknown) Pulse Oximetry 94 94 (units unknown) (unknown) (unknown) (no date) (unknown) (unknown) Pulse Oximetry 94 95 95 (units unknown) (unknown) (unknown) (no date) (unknown) (unknown) Pulse Oximetry 94 95 (units unknown) (unknown) (unknown) (no date) (unknown) (unknown) Pulse Oximetry 94 (units unknown) (unknown) (unknown) (no date) (unknown) (unknown) Pulse Oximetry 95 91 (units unknown) (unknown) (unknown) (no date) (unknown) (unknown) Pulse Oximetry 95 94 94 (units unknown) (unknown) (unknown) (no date) (unknown) (unknown) Pulse Oximetry 95 95 (units unknown) (unknown) (unknown) (no date) (unknown) (unknown) Pulse Oximetry 95 96 (units unknown) (unknown) (unknown) (no date) (unknown) (unknown) Pulse Oximetry 95 (units unknown) (unknown) (unknown) (no date) (unknown) (unknown) Pulse Oximetry 96 (units unknown) (unknown) (unknown) (no date) (unknown) (unknown) Pulse Oximetry 97 98 (units unknown) (unknown) (unknown) (no date) (unknown) (unknown) Pulse Oximetry 99 95 93 (units unknown) (unknown) (unknown) (no date) (unknown) (unknown) Pulse Oximetry 99 (units unknown) (unknown) (unknown) (no date) (unknown) (unknown) Pulse Rate 100 H 104 H (units unknown) (unknown) (unknown) (no date) (unknown) (unknown) Pulse Rate 101 H (units unknown) (unknown) (unknown) (no date) (unknown) (unknown) Pulse Rate 102 H 105 H (units unknown) (unknown) (unknown) (no date) (unknown) (unknown) Pulse Rate 102 H (units unknown) (unknown) (unknown) (no date) (unknown) (unknown) Pulse Rate 104 H 108 H (units unknown) (unknown) (unknown) (no date) (unknown) (unknown) Pulse Rate 104 H (units unknown) (unknown) (unknown) (no date) (unknown) (unknown) Pulse Rate 106 H 110 H (units unknown) (unknown) (unknown) (no date) (unknown) (unknown) Pulse Rate 106 H (units unknown) (unknown) (unknown) (no date) (unknown) (unknown) Pulse Rate 107 H 107 H (units unknown) (unknown) (unknown) (no date) (unknown) (unknown) Pulse Rate 108 H 105 H (units unknown) (unknown) (unknown) (no date) (unknown) (unknown) Pulse Rate 108 H (units unknown) (unknown) (unknown) (no date) (unknown) (unknown) Pulse Rate 109 H (units unknown) (unknown) (unknown) (no date) (unknown) (unknown) Pulse Rate 110 H 109 H (units unknown) (unknown) (unknown) (no date) (unknown) (unknown) Pulse Rate 112 H (units unknown) (unknown) (unknown) (no date) (unknown) (unknown) Pulse Rate 115 H 111 H (units unknown) (unknown) (unknown) (no date) (unknown) (unknown) Pulse Rate 116 H (units unknown) (unknown) (unknown) (no date) (unknown) (unknown) Pulse Rate 123 H 118 H (units unknown) (unknown) (unknown) (no date) (unknown) (unknown) Pulse Rate 135 H (units unknown) (unknown) (unknown) (no date) (unknown) (unknown) Pulse Rate 138 H 126 H (units unknown) (unknown) (unknown) (no date) (unknown) (unknown) Pulse Rate 209 H 172 H 172 H (units unknown) (unknown) (unknown) (no date) (unknown) (unknown) Pulse Rate 92 H 100 H 95 H (units unknown) (unknown) (unknown) (no date) (unknown) (unknown) Pulse Rate 93 H 89 90 (units unknown) (unknown) (unknown) (no date) (unknown) (unknown) Pulse Rate 95 H 86 86 (units unknown) (unknown) (unknown) (no date) (unknown) (unknown) Quality (units unknown) (unknown) (unknown) (no date) (unknown) (unknown) RBC 5.00 (units unknown) (unknown) (unknown) (no date) (unknown) (unknown) RBC (units unknown) (unknown) (unknown) (no date) (unknown) (unknown) RDW 15.3 H (units unknown) (unknown) (unknown) (no date) (unknown) (unknown) RDW (units unknown) (unknown) (unknown) (no date) (unknown) (unknown) RSV (PCR) Negative (units unknown) (unknown) (unknown) (no date) (unknown) (unknown) RSV (PCR) (units unknown) (unknown) (unknown) (no date) (unknown) (unknown) Respiratory Rate 30 H 51 H 53 H (units unknown) (unknown) (unknown) (no date) (unknown) (unknown) Respiratory Rate 30 H (units unknown) (unknown) (unknown) (no date) (unknown) (unknown) Respiratory Rate 31 H 32 H (units unknown) (unknown) (unknown) (no date) (unknown) (unknown) Respiratory Rate 31 H 34 H (units unknown) (unknown) (unknown) (no date) (unknown) (unknown) Respiratory Rate 31 H (units unknown) (unknown) (unknown) (no date) (unknown) (unknown) Respiratory Rate 32 H (units unknown) (unknown) (unknown) (no date) (unknown) (unknown) Respiratory Rate 34 H 32 H 28 H (units unknown) (unknown) (unknown) (no date) (unknown) (unknown) Respiratory Rate 34 H 34 H (units unknown) (unknown) (unknown) (no date) (unknown) (unknown) Respiratory Rate 34 H (units unknown) (unknown) (unknown) (no date) (unknown) (unknown) Respiratory Rate 35 H 31 H 37 H (units unknown) (unknown) (unknown) (no date) (unknown) (unknown) Respiratory Rate 35 H 33 H (units unknown) (unknown) (unknown) (no date) (unknown) (unknown) Respiratory Rate 35 H 36 H (units unknown) (unknown) (unknown) (no date) (unknown) (unknown) Respiratory Rate 35 H (units unknown) (unknown) (unknown) (no date) (unknown) (unknown) Respiratory Rate 36 H 35 H (units unknown) (unknown) (unknown) (no date) (unknown) (unknown) Respiratory Rate 36 H (units unknown) (unknown) (unknown) (no date) (unknown) (unknown) Respiratory Rate 37 H 39 H (units unknown) (unknown) (unknown) (no date) (unknown) (unknown) Respiratory Rate 37 H (units unknown) (unknown) (unknown) (no date) (unknown) (unknown) Respiratory Rate 38 H 37 H (units unknown) (unknown) (unknown) (no date) (unknown) (unknown) Respiratory Rate 38 H (units unknown) (unknown) (unknown) (no date) (unknown) (unknown) Respiratory Rate 39 H (units unknown) (unknown) (unknown) (no date) (unknown) (unknown) Respiratory Rate 40 H 39 H (units unknown) (unknown) (unknown) (no date) (unknown) (unknown) Respiratory Rate 43 H 44 H (units unknown) (unknown) (unknown) (no date) (unknown) (unknown) Respiratory Rate 47 H (units unknown) (unknown) (unknown) (no date) (unknown) (unknown) Respiratory Rate 51 H (units unknown) (unknown) (unknown) (no date) (unknown) (unknown) Review of Systems (units unknown) (unknown) (unknown) (no date) (unknown) (unknown) SARS-CoV-2 (PCR) Negative (units unknown) (unknown) (unknown) (no date) (unknown) (unknown) SARS-CoV-2 (PCR) (units unknown) (unknown) (unknown) (no date) (unknown) (unknown) Safety + Behavioral: (units unknown) (unknown) (unknown) (no date) (unknown) (unknown) Signed By: (units unknown) (unknown) (unknown) (no date) (unknown) (unknown) Skin: Warm dry and intact without rashes, ulcerations or petechiae. (units unknown) (unknown) (unknown) (no date) (unknown) (unknown) Smoking Status Never smoker (units unknown) (unknown) (unknown) (no date) (unknown) (unknown) Social History: (units unknown) (unknown) (unknown) (no date) (unknown) (unknown) Sodium 128 L (units unknown) (unknown) (unknown) (no date) (unknown) (unknown) Sodium (units unknown) (unknown) (unknown) (no date) (unknown) (unknown) Substance Use Type does not use (units unknown) (unknown) (unknown) (no date) (unknown) (unknown) Surgical History (units unknown) (unknown) (unknown) (no date) (unknown) (unknown) Temperature 100.9 F H (units unknown) (unknown) (unknown) (no date) (unknown) (unknown) Temperature 101 F H (units unknown) (unknown) (unknown) (no date) (unknown) (unknown) Temperature 101.1 F H (units unknown) (unknown) (unknown) (no date) (unknown) (unknown) Temperature (units unknown) (unknown) (unknown) (no date) (unknown) (unknown) Threatened By a Person (units unknown) (unknown) (unknown) (no date) (unknown) (unknown) Time Patient Seen: 20:27 (units unknown) (unknown) (unknown) (no date) (unknown) (unknown) Tobacco + Substance use: (units unknown) (unknown) (unknown) (no date) (unknown) (unknown) Total Bilirubin 1.2 (units unknown) (unknown) (unknown) (no date) (unknown) (unknown) Total Bilirubin (units unknown) (unknown) (unknown) (no date) (unknown) (unknown) Total Creatine Kinase 133 (units unknown) (unknown) (unknown) (no date) (unknown) (unknown) Total Creatine Kinase (units unknown) (unknown) (unknown) (no date) (unknown) (unknown) Total Protein 7.7 (units unknown) (unknown) (unknown) (no date) (unknown) (unknown) Total Protein (units unknown) (unknown) (unknown) (no date) (unknown) (unknown) Troponin I 0.016 (units unknown) (unknown) (unknown) (no date) (unknown) (unknown) Troponin I (units unknown) (unknown) (unknown) (no date) (unknown) (unknown) U-100 Insulin) (units unknown) (unknown) (unknown) (no date) (unknown) (unknown) VTE (units unknown) (unknown) (unknown) (no date) (unknown) (unknown) Vital Signs (units unknown) (unknown) (unknown) (no date) (unknown) (unknown) WBC 15.9 H (units unknown) (unknown) (unknown) (no date) (unknown) (unknown) WBC (units unknown) (unknown) (unknown) (no date) (unknown) (unknown) [Embedded Image Not Available] (units unknown) (unknown) (unknown) (no date) (unknown) (unknown) admitted to the ICU teleICU for atrial fibrillation with RVR, sepsis without (units unknown) (unknown) (unknown) (no date) (unknown) (unknown) afebrile temp 101?, hypertensive urgency BP 193/91, 183/84, tachycardic heart (units unknown) (unknown) (unknown) (no date) (unknown) (unknown) air-patient is stable in no distress sleeping heavily. Currently diltiazem drip (units unknown) (unknown) (unknown) (no date) (unknown) (unknown) alcohol intake frequency other (units unknown) (unknown) (unknown) (no date) (unknown) (unknown) alcohol intake never (units unknown) (unknown) (unknown) (no date) (unknown) (unknown) amputation. ? Patient presents with 5 days of fevers generally feeling unwell (units unknown) (unknown) (unknown) (no date) (unknown) (unknown) amputation. In ED was primary historian she is unsure if he is taking his (units unknown) (unknown) (unknown) (no date) (unknown) (unknown) are present in all 4 quadrants without guarding or rebound, no CVA tenderness. (units unknown) (unknown) (unknown) (no date) (unknown) (unknown) atrial fibrillation. Patient was given an initial dose of diltiazem and then (units unknown) (unknown) (unknown) (no date) (unknown) (unknown) attitude thought context and judgment are appropriate for age. (units unknown) (unknown) (unknown) (no date) (unknown) (unknown) body aches, chills, cough, denies recent exposure to illness, abdominal pain, (units unknown) (unknown) (unknown) (no date) (unknown) (unknown) bruit, no cardiac pulsations present. (units unknown) (unknown) (unknown) (no date) (unknown) (unknown) cellulitis, acute, present on admission (units unknown) (unknown) (unknown) (no date) (unknown) (unknown) changes, constipation, incontinence, melena, rashes, recent changes to (units unknown) (unknown) (unknown) (no date) (unknown) (unknown) clear and mucous membranes are moist. Neck is supple and symmetric, trachea is (units unknown) (unknown) (unknown) (no date) (unknown) (unknown) comparison to EKG from 12/18/2022, last echo 11/2022 EF 35-40%. Patient (units unknown) (unknown) (unknown) (no date) (unknown) (unknown) currently rate controlled (units unknown) (unknown) (unknown) (no date) (unknown) (unknown) difficulty with ambulation, recent falls, head injury, LOC, currently no fever, (units unknown) (unknown) (unknown) (no date) (unknown) (unknown) documented. (units unknown) (unknown) (unknown) (no date) (unknown) (unknown) erythematous warm to touch, cellulitis radial and pedal pulses are normal. (units unknown) (unknown) (unknown) (no date) (unknown) (unknown) extremely resistant to coming into the emergency department, is frequently (units unknown) (unknown) (unknown) (no date) (unknown) (unknown) fevers generally feeling unwell he states his heart rate has been fast, fever x (units unknown) (unknown) (unknown) (no date) (unknown) (unknown) he states his heart rate has been fast, fever x 5 days, patient is a poor (units unknown) (unknown) (unknown) (no date) (unknown) (unknown) historian but verbalizes that he may have had increased swelling redness and (units unknown) (unknown) (unknown) (no date) (unknown) (unknown) household members spouse (units unknown) (unknown) (unknown) (no date) (unknown) (unknown) hypotension 102/59, 98/54, map 75, HR 86 Afib, RR 20, O2 saturation 94% on room (units unknown) (unknown) (unknown) (no date) (unknown) (unknown) in comparison to EKG from 12/18/2022, last echo 11/2022 EF 35-40%. Patient (units unknown) (unknown) (unknown) (no date) (unknown) (unknown) increased swelling redness and pain of the left lower extremity for the past (units unknown) (unknown) (unknown) (no date) (unknown) (unknown) initial lactate 3.2, repeat 1. Sodium 128, Cl 96, BUN 24, bicarb 19, glucose (units unknown) (unknown) (unknown) (no date) (unknown) (unknown) insulin glargine 100 unit/mL 12 unit SUBCUT BEDTIME 05/11/20 01/15/23 History (units unknown) (unknown) (unknown) (no date) (unknown) (unknown) intact, no gross deficits noted of cranial nerves. (units unknown) (unknown) (unknown) (no date) (unknown) (unknown) lisinopril 5 mg tablet 5 mg PO DAILY 90 days #90 tabs 12/21/22 01/15/23 Rx (units unknown) (unknown) (unknown) (no date) (unknown) (unknown) medication, illness, injury, or trauma. (units unknown) (unknown) (unknown) (no date) (unknown) (unknown) medications regularly.? He was admitted for AFib RVR in November and was not (units unknown) (unknown) (unknown) (no date) (unknown) (unknown) metformin 500 mg tablet 500 mg PO BID 05/11/20 01/15/23 History (units unknown) (unknown) (unknown) (no date) (unknown) (unknown) metoprolol succinate 50 mg 50 mg PO BID 90 days #180 tabs 12/21/22 01/15/23 Rx (units unknown) (unknown) (unknown) (no date) (unknown) (unknown) midline, no adenopathy, no thyroid enlargement, nontender, no masses palpated. (units unknown) (unknown) (unknown) (no date) (unknown) (unknown) negative acute ST changes, depression in lead 1 and aVL, similar in comparison (units unknown) (unknown) (unknown) (no date) (unknown) (unknown) negative for, FiO2 21. WBC 15.9, newt 13,000, mono 1500 procalcitonin 0.5, (units unknown) (unknown) (unknown) (no date) (unknown) (unknown) negative, COVID influenza a/B/RSV are all negative. 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 Patient (units unknown) (unknown) (unknown) (no date) (unknown) (unknown) pain of the left lower extremity for the past week, nausea and vomiting on way (units unknown) (unknown) (unknown) (no date) (unknown) (unknown) piperacillin [From Zosyn] Allergy Severe Uticaria Verified 05/11/20 22:50 (units unknown) (unknown) (unknown) (no date) (unknown) (unknown) placed on a Dilt drip. (units unknown) (unknown) (unknown) (no date) (unknown) (unknown) rate of 169, negative acute ST changes, depression in lead 1 and aVL, similar in (units unknown) (unknown) (unknown) (no date) (unknown) (unknown) rate of 169, negative acute ST changes, depression in lead 1 and aVL, similar (units unknown) (unknown) (unknown) (no date) (unknown) (unknown) rates up to 209, tachypneic respiratory rates 30-50 in atrial fibrillation. (units unknown) (unknown) (unknown) (no date) (unknown) (unknown) retractions, or tachypneic labored breathing (units unknown) (unknown) (unknown) (no date) (unknown) (unknown) rivaroxaban 20 mg tablet (Xarelto) 20 mg PO QPM 05/11/20 01/15/23 History (units unknown) (unknown) (unknown) (no date) (unknown) (unknown) shock secondary to left lower extremity cellulitis, hyponatremia (units unknown) (unknown) (unknown) (no date) (unknown) (unknown) states his primary care is through [facility].? In the ED patient was (units unknown) (unknown) (unknown) (no date) (unknown) (unknown) subcutaneous solution (Lantus (units unknown) (unknown) (unknown) (no date) (unknown) (unknown) tablet,extended release 24 hr (units unknown) (unknown) (unknown) (no date) (unknown) (unknown) taking medications regularly at that time.? Patient presents with 5 days of (units unknown) (unknown) (unknown) (no date) (unknown) (unknown) tazobactam [From Zosyn] Allergy Severe Uticaria Verified 05/11/20 22:50 (units unknown) (unknown) (unknown) (no date) (unknown) (unknown) time. (units unknown) (unknown) (unknown) (no date) (unknown) (unknown) to EKG from 12/18/2022, (units unknown) (unknown) (unknown) (no date) (unknown) (unknown) to the hospital. (units unknown) (unknown) (unknown) (no date) (unknown) (unknown) urinary incontinence/retent ion, dysuria, frequency, urgency, hematuria, bowel (units unknown) (unknown) (unknown) (no date) (unknown) (unknown) vascular congestion. I personally reviewed all imaging and EKG. EKG: AFib RVR (units unknown) (unknown) (unknown) (no date) (unknown) (unknown) vision, difficulty swallowing, speech impairment, weakness, numbness, tingling, (units unknown) (unknown) (unknown) (no date) (unknown) (unknown) week, nausea and vomiting on way to the hospital. Patient was sent to be (units unknown) (unknown) (unknown) (no date) (unknown) (unknown) wheezes, rhonchi, or rales. (units unknown) (unknown) Result panel 436 (unknown) (no date) (unknown) (unknown) (no value) (units unknown) (unknown) (unknown) (no date) (unknown) (unknown) (past 8 hours): (units unknown) (unknown) (unknown) (no date) (unknown) (unknown) -1 L fluid bolus given on admit, followed by NS at 150 cc/hour (units unknown) (unknown) (unknown) (no date) (unknown) (unknown) -Admit 110/55, MAP 81, Afib, RR 20, O2 saturation 94% on room air (units unknown) (unknown) (unknown) (no date) (unknown) (unknown) -Chest x-ray mild pulmonary vascular congestion. (units unknown) (unknown) (unknown) (no date) (unknown) (unknown) -ED :temp 101?, BP 193/91, 183/84, HR to 209, RR 30-50. (units unknown) (unknown) (unknown) (no date) (unknown) (unknown) -I personally reviewed all imaging and EKG. EKG: AFib RVR rate of 169, (units unknown) (unknown) (unknown) (no date) (unknown) (unknown) -In ED Hr up to 209 (units unknown) (unknown) (unknown) (no date) (unknown) (unknown) -Mag 1.2 ordered 2 g rider (units unknown) (unknown) (unknown) (no date) (unknown) (unknown) -SOFA:2, febrile, tachycardic, tachypneic (units unknown) (unknown) (unknown) (no date) (unknown) (unknown) -VBG: PH 7.44, pCO2 30.5, PO2 34, bicarb 21, TCO2 21, O2 sat 69%, BE negative (units unknown) (unknown) (unknown) (no date) (unknown) (unknown) -WBC 15.9, newt 13,000, mono 1500 procalcitonin 0.5, initial lactate 3.2, repeat (units unknown) (unknown) (unknown) (no date) (unknown) (unknown) -admit continued to have a low-grade fever 100.9, developed hypotension 102/59, (units unknown) (unknown) (unknown) (no date) (unknown) (unknown) -continue Xarelto (units unknown) (unknown) (unknown) (no date) (unknown) (unknown) -last echo 11/2022 EF 35-40%. 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 (units unknown) (unknown) (unknown) (no date) (unknown) (unknown) -patient had a history of urticaria with a previous dosage of Zosyn in 2019, (units unknown) (unknown) (unknown) (no date) (unknown) (unknown) -patient has been noncompliant with Cardiology follow-up and medications (units unknown) (unknown) (unknown) (no date) (unknown) (unknown) -patient has diabetes with a history of osteomyelitis, 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 (units unknown) (unknown) (unknown) (no date) (unknown) (unknown) -patient received vancomycin in ED (units unknown) (unknown) (unknown) (no date) (unknown) (unknown) -patient was placed on diltiazem drip in the ED-currently on 2.5 (units unknown) (unknown) (unknown) (no date) (unknown) (unknown) -respiratory panel negative (units unknown) (unknown) (unknown) (no date) (unknown) (unknown) -restart metoprolol 50 mg b.i.d in am (units unknown) (unknown) (unknown) (no date) (unknown) (unknown) -will leave patient on drip overnight for rest (units unknown) (unknown) (unknown) (no date) (unknown) (unknown) [id number] (units unknown) (unknown) (unknown) (no date) (unknown) (unknown) 01/15/23 01/15/23 01/15/23 (units unknown) (unknown) (unknown) (no date) (unknown) (unknown) 01/15/23 01/15/23 (units unknown) (unknown) (unknown) (no date) (unknown) (unknown) 01/15/23 15:25 (units unknown) (unknown) (unknown) (no date) (unknown) (unknown) 01/15/23 (units unknown) (unknown) (unknown) (no date) (unknown) (unknown) 1. Atrial fibrillation with RVR, acute on chronic, present on admission (units unknown) (unknown) (unknown) (no date) (unknown) (unknown) 1. (units unknown) (unknown) (unknown) (no date) (unknown) (unknown) 15:25 15:25 15:25 (units unknown) (unknown) (unknown) (no date) (unknown) (unknown) 15:25 15:25 15:49 (units unknown) (unknown) (unknown) (no date) (unknown) (unknown) 15:26 01/15/23 (units unknown) (unknown) (unknown) (no date) (unknown) (unknown) 15:27 01/15/23 (units unknown) (unknown) (unknown) (no date) (unknown) (unknown) 15:27 (units unknown) (unknown) (unknown) (no date) (unknown) (unknown) 15:29 01/15/23 (units unknown) (unknown) (unknown) (no date) (unknown) (unknown) 15:30 01/15/23 (units unknown) (unknown) (unknown) (no date) (unknown) (unknown) 15:30 (units unknown) (unknown) (unknown) (no date) (unknown) (unknown) 15:35 01/15/23 (units unknown) (unknown) (unknown) (no date) (unknown) (unknown) 15:40 (units unknown) (unknown) (unknown) (no date) (unknown) (unknown) 15:45 01/15/23 (units unknown) (unknown) (unknown) (no date) (unknown) (unknown) 15:48 01/15/23 (units unknown) (unknown) (unknown) (no date) (unknown) (unknown) 15:48 (units unknown) (unknown) (unknown) (no date) (unknown) (unknown) 15:50 01/15/23 (units unknown) (unknown) (unknown) (no date) (unknown) (unknown) 15:55 01/15/23 (units unknown) (unknown) (unknown) (no date) (unknown) (unknown) 15:55 (units unknown) (unknown) (unknown) (no date) (unknown) (unknown) 16:00 01/15/23 (units unknown) (unknown) (unknown) (no date) (unknown) (unknown) 16:00 (units unknown) (unknown) (unknown) (no date) (unknown) (unknown) 16:05 01/15/23 (units unknown) (unknown) (unknown) (no date) (unknown) (unknown) 16:10 01/15/23 (units unknown) (unknown) (unknown) (no date) (unknown) (unknown) 16:10 (units unknown) (unknown) (unknown) (no date) (unknown) (unknown) 16:15 01/15/23 (units unknown) (unknown) (unknown) (no date) (unknown) (unknown) 16:15 (units unknown) (unknown) (unknown) (no date) (unknown) (unknown) 16:20 01/15/23 (units unknown) (unknown) (unknown) (no date) (unknown) (unknown) 16:25 03/27/23 (units unknown) (unknown) (unknown) (no date) (unknown) (unknown) 16:25 (units unknown) (unknown) (unknown) (no date) (unknown) (unknown) 16:30 01/15/23 (units unknown) (unknown) (unknown) (no date) (unknown) (unknown) 16:30 (units unknown) (unknown) (unknown) (no date) (unknown) (unknown) 16:35 01/15/23 (units unknown) (unknown) (unknown) (no date) (unknown) (unknown) 16:40 01/15/23 (units unknown) (unknown) (unknown) (no date) (unknown) (unknown) 16:45 01/15/23 (units unknown) (unknown) (unknown) (no date) (unknown) (unknown) 16:45 (units unknown) (unknown) (unknown) (no date) (unknown) (unknown) 16:50 01/15/23 (units unknown) (unknown) (unknown) (no date) (unknown) (unknown) 16:50 (units unknown) (unknown) (unknown) (no date) (unknown) (unknown) 16:51 (units unknown) (unknown) (unknown) (no date) (unknown) (unknown) 16:55 01/15/23 (units unknown) (unknown) (unknown) (no date) (unknown) (unknown) 17:00 01/15/23 (units unknown) (unknown) (unknown) (no date) (unknown) (unknown) 17:00 (units unknown) (unknown) (unknown) (no date) (unknown) (unknown) 17:05 01/15/23 (units unknown) (unknown) (unknown) (no date) (unknown) (unknown) 17:05 (units unknown) (unknown) (unknown) (no date) (unknown) (unknown) 17:10 01/15/23 (units unknown) (unknown) (unknown) (no date) (unknown) (unknown) 17:15 01/15/23 (units unknown) (unknown) (unknown) (no date) (unknown) (unknown) 17:15 (units unknown) (unknown) (unknown) (no date) (unknown) (unknown) 17:20 01/15/23 (units unknown) (unknown) (unknown) (no date) (unknown) (unknown) 17:20 (units unknown) (unknown) (unknown) (no date) (unknown) (unknown) 17:25 01/15/23 (units unknown) (unknown) (unknown) (no date) (unknown) (unknown) 17:30 01/15/23 (units unknown) (unknown) (unknown) (no date) (unknown) (unknown) 17:30 (units unknown) (unknown) (unknown) (no date) (unknown) (unknown) 17:35 01/15/23 (units unknown) (unknown) (unknown) (no date) (unknown) (unknown) 17:35 (units unknown) (unknown) (unknown) (no date) (unknown) (unknown) 17:40 01/15/23 (units unknown) (unknown) (unknown) (no date) (unknown) (unknown) 17:45 01/15/23 (units unknown) (unknown) (unknown) (no date) (unknown) (unknown) 17:45 (units unknown) (unknown) (unknown) (no date) (unknown) (unknown) 17:50 01/15/23 (units unknown) (unknown) (unknown) (no date) (unknown) (unknown) 17:50 (units unknown) (unknown) (unknown) (no date) (unknown) (unknown) 17:55 01/15/23 (units unknown) (unknown) (unknown) (no date) (unknown) (unknown) 17:55 (units unknown) (unknown) (unknown) (no date) (unknown) (unknown) 18:07 (units unknown) (unknown) (unknown) (no date) (unknown) (unknown) 18:11 01/15/23 (units unknown) (unknown) (unknown) (no date) (unknown) (unknown) 18:15 01/15/23 (units unknown) (unknown) (unknown) (no date) (unknown) (unknown) 18:15 19:10 (units unknown) (unknown) (unknown) (no date) (unknown) (unknown) 18:20 (units unknown) (unknown) (unknown) (no date) (unknown) (unknown) 18:25 01/15/23 (units unknown) (unknown) (unknown) (no date) (unknown) (unknown) 18:26 01/15/23 (units unknown) (unknown) (unknown) (no date) (unknown) (unknown) 18:30 01/15/23 (units unknown) (unknown) (unknown) (no date) (unknown) (unknown) 18:35 (units unknown) (unknown) (unknown) (no date) (unknown) (unknown) 18:40 01/15/23 (units unknown) (unknown) (unknown) (no date) (unknown) (unknown) 18:45 01/15/23 (units unknown) (unknown) (unknown) (no date) (unknown) (unknown) 18:50 (units unknown) (unknown) (unknown) (no date) (unknown) (unknown) 2. Sepsis without septic shock, metabolic, likely secondary to left leg (units unknown) (unknown) (unknown) (no date) (unknown) (unknown) 2.5. Sodium 128, Cl 96, BUN 24, bicarb 19, glucose 252, Mag 1.2, PT 19.2, (units unknown) (unknown) (unknown) (no date) (unknown) (unknown) 2.5. VBG: PH 7.44, pCO2 30.5, PO2 34, bicarb 21, TCO2 21, O2 sat 69%, BE (units unknown) (unknown) (unknown) (no date) (unknown) (unknown) 252, Mag 1.2, PT 19.2, INR 1.7, lipase 367, BNP 2810, sofa score:2, anion gap (units unknown) (unknown) (unknown) (no date) (unknown) (unknown) 3rd toe amputation in 2019 (units unknown) (unknown) (unknown) (no date) (unknown) (unknown) 5 days, patient is a poor historian but verbalizes that he may have had (units unknown) (unknown) (unknown) (no date) (unknown) (unknown) 98/54, map 75, HR 86 Afib, RR 20, O2 saturation 94% (units unknown) (unknown) (unknown) (no date) (unknown) (unknown) ALT 29 (units unknown) (unknown) (unknown) (no date) (unknown) (unknown) ALT (units unknown) (unknown) (unknown) (no date) (unknown) (unknown) APTT 33 (units unknown) (unknown) (unknown) (no date) (unknown) (unknown) APTT (units unknown) (unknown) (unknown) (no date) (unknown) (unknown) AST 32 (units unknown) (unknown) (unknown) (no date) (unknown) (unknown) AST (units unknown) (unknown) (unknown) (no date) (unknown) (unknown) Abdomen: Soft nontender, negative for organomegaly, or masses. Bowel sounds (units unknown) (unknown) (unknown) (no date) (unknown) (unknown) Afib (units unknown) (unknown) (unknown) (no date) (unknown) (unknown) Age/Sex: 67 / M (units unknown) (unknown) (unknown) (no date) (unknown) (unknown) Albumin 4.1 (units unknown) (unknown) (unknown) (no date) (unknown) (unknown) Albumin (units unknown) (unknown) (unknown) (no date) (unknown) (unknown) Albumin/Globulin Ratio 1.1 (units unknown) (unknown) (unknown) (no date) (unknown) (unknown) Albumin/Globulin Ratio (units unknown) (unknown) (unknown) (no date) (unknown) (unknown) Alkaline Phosphatase 97 (units unknown) (unknown) (unknown) (no date) (unknown) (unknown) Alkaline Phosphatase (units unknown) (unknown) (unknown) (no date) (unknown) (unknown) All 12 point systems reviewed with the patient and are negative except otherwise (units unknown) (unknown) (unknown) (no date) (unknown) (unknown) Allergies (units unknown) (unknown) (unknown) (no date) (unknown) (unknown) Allergy/AdvReac Type Severity Reaction Status Date / Time (units unknown) (unknown) (unknown) (no date) (unknown) (unknown) Assessment + Plan narrative: (units unknown) (unknown) (unknown) (no date) (unknown) (unknown) Assessment + Plan (units unknown) (unknown) (unknown) (no date) (unknown) (unknown) At the time of admit continued to have a low-grade fever 100.9, developed (units unknown) (unknown) (unknown) (no date) (unknown) (unknown) BUN 24 H (units unknown) (unknown) (unknown) (no date) (unknown) (unknown) BUN (units unknown) (unknown) (unknown) (no date) (unknown) (unknown) BUN/Creatinine Ratio 21.4 (units unknown) (unknown) (unknown) (no date) (unknown) (unknown) BUN/Creatinine Ratio (units unknown) (unknown) (unknown) (no date) (unknown) (unknown) Baso # (Auto) 0 (units unknown) (unknown) (unknown) (no date) (unknown) (unknown) Baso # (Auto) (units unknown) (unknown) (unknown) (no date) (unknown) (unknown) Baso % (Auto) 0.3 (units unknown) (unknown) (unknown) (no date) (unknown) (unknown) Baso % (Auto) (units unknown) (unknown) (unknown) (no date) (unknown) (unknown) Been Physically Hurt or No (units unknown) (unknown) (unknown) (no date) (unknown) (unknown) Blood Pressure 102/59 L (units unknown) (unknown) (unknown) (no date) (unknown) (unknown) Blood Pressure 105/57 L (units unknown) (unknown) (unknown) (no date) (unknown) (unknown) Blood Pressure 106/58 L (units unknown) (unknown) (unknown) (no date) (unknown) (unknown) Blood Pressure 107/53 L (units unknown) (unknown) (unknown) (no date) (unknown) (unknown) Blood Pressure 108/58 L 104/54 L (units unknown) (unknown) (unknown) (no date) (unknown) (unknown) Blood Pressure 113/55 L 114/58 L (units unknown) (unknown) (unknown) (no date) (unknown) (unknown) Blood Pressure 113/58 L 108/59 L (units unknown) (unknown) (unknown) (no date) (unknown) (unknown) Blood Pressure 114/56 L 96/54 L (units unknown) (unknown) (unknown) (no date) (unknown) (unknown) Blood Pressure 115/58 L (units unknown) (unknown) (unknown) (no date) (unknown) (unknown) Blood Pressure 119/66 130/56 L (units unknown) (unknown) (unknown) (no date) (unknown) (unknown) Blood Pressure 120/56 L 126/61 (units unknown) (unknown) (unknown) (no date) (unknown) (unknown) Blood Pressure 122/57 L (units unknown) (unknown) (unknown) (no date) (unknown) (unknown) Blood Pressure 123/72 117/56 L (units unknown) (unknown) (unknown) (no date) (unknown) (unknown) Blood Pressure 125/58 L (units unknown) (unknown) (unknown) (no date) (unknown) (unknown) Blood Pressure 125/63 (units unknown) (unknown) (unknown) (no date) (unknown) (unknown) Blood Pressure 126/58 L (units unknown) (unknown) (unknown) (no date) (unknown) (unknown) Blood Pressure 127/57 L (units unknown) (unknown) (unknown) (no date) (unknown) (unknown) Blood Pressure 143/63 H (units unknown) (unknown) (unknown) (no date) (unknown) (unknown) Blood Pressure 156/60 H 122/58 L (units unknown) (unknown) (unknown) (no date) (unknown) (unknown) Blood Pressure 172/92 H (units unknown) (unknown) (unknown) (no date) (unknown) (unknown) Blood Pressure 183/84 H 140/69 (units unknown) (unknown) (unknown) (no date) (unknown) (unknown) Blood Pressure 193/91 H (units unknown) (unknown) (unknown) (no date) (unknown) (unknown) Blood Pressure 98/54 L (units unknown) (unknown) (unknown) (no date) (unknown) (unknown) Blood Pressure (units unknown) (unknown) (unknown) (no date) (unknown) (unknown) CK-MB (CK-2) 1.09 (units unknown) (unknown) (unknown) (no date) (unknown) (unknown) CK-MB (CK-2) Rel Index 0.8 L (units unknown) (unknown) (unknown) (no date) (unknown) (unknown) CK-MB (CK-2) Rel Index (units unknown) (unknown) (unknown) (no date) (unknown) (unknown) CK-MB (CK-2) (units unknown) (unknown) (unknown) (no date) (unknown) (unknown) Calcium 8.9 (units unknown) (unknown) (unknown) (no date) (unknown) (unknown) Calcium (units unknown) (unknown) (unknown) (no date) (unknown) (unknown) Carbon Dioxide 19 L (units unknown) (unknown) (unknown) (no date) (unknown) (unknown) Carbon Dioxide (units unknown) (unknown) (unknown) (no date) (unknown) (unknown) Cardio: regular rate and rhythm without murmur, rubs, or gallops, no carotid (units unknown) (unknown) (unknown) (no date) (unknown) (unknown) Chest: Normal AP diameter and contour without kyphoscoliosis, no nasal flaring, (units unknown) (unknown) (unknown) (no date) (unknown) (unknown) Chief complaint: vomiting/shaking/fe trell (units unknown) (unknown) (unknown) (no date) (unknown) (unknown) Chloride 96 L (units unknown) (unknown) (unknown) (no date) (unknown) (unknown) Chloride (units unknown) (unknown) (unknown) (no date) (unknown) (unknown) Creatinine 1.12 (units unknown) (unknown) (unknown) (no date) (unknown) (unknown) Creatinine (units unknown) (unknown) (unknown) (no date) (unknown) (unknown) : 1955 Acct:[id number] (units unknown) (unknown) (unknown) (no date) (unknown) (unknown) Date Patient Seen: 01/15/23 (units unknown) (unknown) (unknown) (no date) (unknown) (unknown) Date of Service: 01/15/23 (units unknown) (unknown) (unknown) (no date) (unknown) (unknown) Deep Vein Thrombosis/Pulmonar y Embolism Present on Admission: No (units unknown) (unknown) (unknown) (no date) (unknown) (unknown) Diabetes mellitus (units unknown) (unknown) (unknown) (no date) (unknown) (unknown) Diabetes (units unknown) (unknown) (unknown) (no date) (unknown) (unknown) Environment (units unknown) (unknown) (unknown) (no date) (unknown) (unknown) Eos # (Auto) 0 (units unknown) (unknown) (unknown) (no date) (unknown) (unknown) Eos # (Auto) (units unknown) (unknown) (unknown) (no date) (unknown) (unknown) Eos % (Auto) 0.0 L (units unknown) (unknown) (unknown) (no date) (unknown) (unknown) Eos % (Auto) (units unknown) (unknown) (unknown) (no date) (unknown) (unknown) Estimated GFR > 60 (units unknown) (unknown) (unknown) (no date) (unknown) (unknown) Estimated GFR (units unknown) (unknown) (unknown) (no date) (unknown) (unknown) Exam Narrative: (units unknown) (unknown) (unknown) (no date) (unknown) (unknown) Exam (units unknown) (unknown) (unknown) (no date) (unknown) (unknown) Family + Social History (units unknown) (unknown) (unknown) (no date) (unknown) (unknown) Family History (units unknown) (unknown) (unknown) (no date) (unknown) (unknown) Father Smoker (units unknown) (unknown) (unknown) (no date) (unknown) (unknown) Feels Safe in Current Yes (units unknown) (unknown) (unknown) (no date) (unknown) (unknown) General: Patient is a well-developed, well-nourished in no distress at this (units unknown) (unknown) (unknown) (no date) (unknown) (unknown) Globulin 3.6 (units unknown) (unknown) (unknown) (no date) (unknown) (unknown) Globulin (units unknown) (unknown) (unknown) (no date) (unknown) (unknown) Glucose 252 H (units unknown) (unknown) (unknown) (no date) (unknown) (unknown) Glucose (units unknown) (unknown) (unknown) (no date) (unknown) (unknown) HEENT: Normocephalic, atraumatic, extraocular muscles intact, oral pharynx is (units unknown) (unknown) (unknown) (no date) (unknown) (unknown) Hct 43.2 (units unknown) (unknown) (unknown) (no date) (unknown) (unknown) Hct (units unknown) (unknown) (unknown) (no date) (unknown) (unknown) Heart attack (units unknown) (unknown) (unknown) (no date) (unknown) (unknown) Hgb 14.6 (units unknown) (unknown) (unknown) (no date) (unknown) (unknown) Hgb (units unknown) (unknown) (unknown) (no date) (unknown) (unknown) History + Physical Report (units unknown) (unknown) (unknown) (no date) (unknown) (unknown) History of Present Illness (units unknown) (unknown) (unknown) (no date) (unknown) (unknown) History of hernia repair (units unknown) (unknown) (unknown) (no date) (unknown) (unknown) History of neck surgery (units unknown) (unknown) (unknown) (no date) (unknown) (unknown) Home Medications and Allergies (units unknown) (unknown) (unknown) (no date) (unknown) (unknown) Home Medications (units unknown) (unknown) (unknown) (no date) (unknown) (unknown) Hyperlipidemia (units unknown) (unknown) (unknown) (no date) (unknown) (unknown) Hypertension (units unknown) (unknown) (unknown) (no date) (unknown) (unknown) INR 1.7 H (units unknown) (unknown) (unknown) (no date) (unknown) (unknown) INR 1.7, lipase 367, BNP 2810, sofa score:2, anion gap negative, COVID influenza (units unknown) (unknown) (unknown) (no date) (unknown) (unknown) INR (units unknown) (unknown) (unknown) (no date) (unknown) (unknown) Influenza A (RT-PCR) Flu a negative (units unknown) (unknown) (unknown) (no date) (unknown) (unknown) Influenza A (RT-PCR) (units unknown) (unknown) (unknown) (no date) (unknown) (unknown) Influenza B (RT-PCR) Flu b negative (units unknown) (unknown) (unknown) (no date) (unknown) (unknown) Influenza B (RT-PCR) (units unknown) (unknown) (unknown) (no date) (unknown) (unknown) [address] [address] (units unknown) (unknown) (unknown) (no date) (unknown) (unknown) Arvind Carlisle Barracks is a 67yo M with PMH of A-fib on xeralto, DM2 with peripheral (units unknown) (unknown) (unknown) (no date) (unknown) (unknown) Laboratory Results - last 24 hr (units unknown) (unknown) (unknown) (no date) (unknown) (unknown) Labs (units unknown) (unknown) (unknown) (no date) (unknown) (unknown) Labs: (units unknown) (unknown) (unknown) (no date) (unknown) (unknown) Lactate 1.0 (units unknown) (unknown) (unknown) (no date) (unknown) (unknown) Lactate 3.2 H (units unknown) (unknown) (unknown) (no date) (unknown) (unknown) Lactate (units unknown) (unknown) (unknown) (no date) (unknown) (unknown) Lipase 367 H (units unknown) (unknown) (unknown) (no date) (unknown) (unknown) Lipase (units unknown) (unknown) (unknown) (no date) (unknown) (unknown) Lungs: Auscultation of all lung neff are clear without adventitious sounds, (units unknown) (unknown) (unknown) (no date) (unknown) (unknown) Lymph # (Auto) 1400 (units unknown) (unknown) (unknown) (no date) (unknown) (unknown) Lymph # (Auto) (units unknown) (unknown) (unknown) (no date) (unknown) (unknown) Lymph % (Auto) 9.0 L (units unknown) (unknown) (unknown) (no date) (unknown) (unknown) Lymph % (Auto) (units unknown) (unknown) (unknown) (no date) (unknown) (unknown) MCH 29.3 (units unknown) (unknown) (unknown) (no date) (unknown) (unknown) MCH (units unknown) (unknown) (unknown) (no date) (unknown) (unknown) MCHC 33.8 (units unknown) (unknown) (unknown) (no date) (unknown) (unknown) MCHC (units unknown) (unknown) (unknown) (no date) (unknown) (unknown) MCV 86.5 (units unknown) (unknown) (unknown) (no date) (unknown) (unknown) MCV (units unknown) (unknown) (unknown) (no date) (unknown) (unknown) Magnesium 1.2 L (units unknown) (unknown) (unknown) (no date) (unknown) (unknown) Magnesium (units unknown) (unknown) (unknown) (no date) (unknown) (unknown) Medical History (units unknown) (unknown) (unknown) (no date) (unknown) (unknown) Medication Instructions Recorded Confirmed Type (units unknown) (unknown) (unknown) (no date) (unknown) (unknown) Meds (units unknown) (unknown) (unknown) (no date) (unknown) (unknown) [place] # (Auto) 1500 H (units unknown) (unknown) (unknown) (no date) (unknown) (unknown) [place] # (Auto) (units unknown) (unknown) (unknown) (no date) (unknown) (unknown) [place] % (Auto) 9.2 (units unknown) (unknown) (unknown) (no date) (unknown) (unknown) [place] % (Auto) (units unknown) (unknown) (unknown) (no date) (unknown) (unknown) Mother No significant medical problems (units unknown) (unknown) (unknown) (no date) (unknown) (unknown) Musculoskeletal: Bilateral lower extremity edema, left greater than right, left (units unknown) (unknown) (unknown) (no date) (unknown) (unknown) NT-Pro-B Natriuret Pep 2810 H (units unknown) (unknown) (unknown) (no date) (unknown) (unknown) NT-Pro-B Natriuret Pep (units unknown) (unknown) (unknown) (no date) (unknown) (unknown) Narrative (units unknown) (unknown) (unknown) (no date) (unknown) (unknown) Narrative: (units unknown) (unknown) (unknown) (no date) (unknown) (unknown) Nasal Screen MRSA (PCR) Not detected (units unknown) (unknown) (unknown) (no date) (unknown) (unknown) Nasal Screen MRSA (PCR) (units unknown) (unknown) (unknown) (no date) (unknown) (unknown) Negative for JVD (units unknown) (unknown) (unknown) (no date) (unknown) (unknown) Neuro: Alert and orientated x3, moves all extremities, sensation to touch (units unknown) (unknown) (unknown) (no date) (unknown) (unknown) Neuropathy of both feet (units unknown) (unknown) (unknown) (no date) (unknown) (unknown) Neut # (Auto) 35792 H (units unknown) (unknown) (unknown) (no date) (unknown) (unknown) Neut # (Auto) (units unknown) (unknown) (unknown) (no date) (unknown) (unknown) Neut % (Auto) 81.5 H (units unknown) (unknown) (unknown) (no date) (unknown) (unknown) Neut % (Auto) (units unknown) (unknown) (unknown) (no date) (unknown) (unknown) Objective (units unknown) (unknown) (unknown) (no date) (unknown) (unknown) On admit patient denies chest pain, shortness in breath, headache, changes in (units unknown) (unknown) (unknown) (no date) (unknown) (unknown) Oxygen Delivery Method Room Air (units unknown) (unknown) (unknown) (no date) (unknown) (unknown) Oxygen Delivery Method (units unknown) (unknown) (unknown) (no date) (unknown) (unknown) Oxygen Flow Rate 0 (units unknown) (unknown) (unknown) (no date) (unknown) (unknown) Oxygen Flow Rate (units unknown) (unknown) (unknown) (no date) (unknown) (unknown) PT 19.2 H (units unknown) (unknown) (unknown) (no date) (unknown) (unknown) PT (units unknown) (unknown) (unknown) (no date) (unknown) (unknown) Patient History (units unknown) (unknown) (unknown) (no date) (unknown) (unknown) Patient was given an initial dose of diltiazem and then placed on a Dilt drip. (units unknown) (unknown) (unknown) (no date) (unknown) (unknown) Patient: Arvind Brock MR#: [id number] (units unknown) (unknown) (unknown) (no date) (unknown) (unknown) Plt Count 162 (units unknown) (unknown) (unknown) (no date) (unknown) (unknown) Plt Count (units unknown) (unknown) (unknown) (no date) (unknown) (unknown) Potassium 4.5 (units unknown) (unknown) (unknown) (no date) (unknown) (unknown) Potassium (units unknown) (unknown) (unknown) (no date) (unknown) (unknown) Prior Living Arrangements House (units unknown) (unknown) (unknown) (no date) (unknown) (unknown) Procalcitonin 0.50 (units unknown) (unknown) (unknown) (no date) (unknown) (unknown) Procalcitonin (units unknown) (unknown) (unknown) (no date) (unknown) (unknown) Provider: Piper Brannon-GEOVANI (units unknown) (unknown) (unknown) (no date) (unknown) (unknown) Psych: Patient has a well-kept appearance, appropriate affect, mental status (units unknown) (unknown) (unknown) (no date) (unknown) (unknown) Pulse Oximetry 93 93 (units unknown) (unknown) (unknown) (no date) (unknown) (unknown) Pulse Oximetry 93 94 (units unknown) (unknown) (unknown) (no date) (unknown) (unknown) Pulse Oximetry 93 (units unknown) (unknown) (unknown) (no date) (unknown) (unknown) Pulse Oximetry 94 94 (units unknown) (unknown) (unknown) (no date) (unknown) (unknown) Pulse Oximetry 94 95 95 (units unknown) (unknown) (unknown) (no date) (unknown) (unknown) Pulse Oximetry 94 95 (units unknown) (unknown) (unknown) (no date) (unknown) (unknown) Pulse Oximetry 94 (units unknown) (unknown) (unknown) (no date) (unknown) (unknown) Pulse Oximetry 95 91 (units unknown) (unknown) (unknown) (no date) (unknown) (unknown) Pulse Oximetry 95 94 94 (units unknown) (unknown) (unknown) (no date) (unknown) (unknown) Pulse Oximetry 95 95 (units unknown) (unknown) (unknown) (no date) (unknown) (unknown) Pulse Oximetry 95 96 (units unknown) (unknown) (unknown) (no date) (unknown) (unknown) Pulse Oximetry 95 (units unknown) (unknown) (unknown) (no date) (unknown) (unknown) Pulse Oximetry 96 (units unknown) (unknown) (unknown) (no date) (unknown) (unknown) Pulse Oximetry 97 98 (units unknown) (unknown) (unknown) (no date) (unknown) (unknown) Pulse Oximetry 99 95 93 (units unknown) (unknown) (unknown) (no date) (unknown) (unknown) Pulse Oximetry 99 (units unknown) (unknown) (unknown) (no date) (unknown) (unknown) Pulse Rate 100 H 104 H (units unknown) (unknown) (unknown) (no date) (unknown) (unknown) Pulse Rate 101 H (units unknown) (unknown) (unknown) (no date) (unknown) (unknown) Pulse Rate 102 H 105 H (units unknown) (unknown) (unknown) (no date) (unknown) (unknown) Pulse Rate 102 H (units unknown) (unknown) (unknown) (no date) (unknown) (unknown) Pulse Rate 104 H 108 H (units unknown) (unknown) (unknown) (no date) (unknown) (unknown) Pulse Rate 104 H (units unknown) (unknown) (unknown) (no date) (unknown) (unknown) Pulse Rate 106 H 110 H (units unknown) (unknown) (unknown) (no date) (unknown) (unknown) Pulse Rate 106 H (units unknown) (unknown) (unknown) (no date) (unknown) (unknown) Pulse Rate 107 H 107 H (units unknown) (unknown) (unknown) (no date) (unknown) (unknown) Pulse Rate 108 H 105 H (units unknown) (unknown) (unknown) (no date) (unknown) (unknown) Pulse Rate 108 H (units unknown) (unknown) (unknown) (no date) (unknown) (unknown) Pulse Rate 109 H (units unknown) (unknown) (unknown) (no date) (unknown) (unknown) Pulse Rate 110 H 109 H (units unknown) (unknown) (unknown) (no date) (unknown) (unknown) Pulse Rate 112 H (units unknown) (unknown) (unknown) (no date) (unknown) (unknown) Pulse Rate 115 H 111 H (units unknown) (unknown) (unknown) (no date) (unknown) (unknown) Pulse Rate 116 H (units unknown) (unknown) (unknown) (no date) (unknown) (unknown) Pulse Rate 123 H 118 H (units unknown) (unknown) (unknown) (no date) (unknown) (unknown) Pulse Rate 135 H (units unknown) (unknown) (unknown) (no date) (unknown) (unknown) Pulse Rate 138 H 126 H (units unknown) (unknown) (unknown) (no date) (unknown) (unknown) Pulse Rate 209 H 172 H 172 H (units unknown) (unknown) (unknown) (no date) (unknown) (unknown) Pulse Rate 92 H 100 H 95 H (units unknown) (unknown) (unknown) (no date) (unknown) (unknown) Pulse Rate 93 H 89 90 (units unknown) (unknown) (unknown) (no date) (unknown) (unknown) Pulse Rate 95 H 86 86 (units unknown) (unknown) (unknown) (no date) (unknown) (unknown) Quality (units unknown) (unknown) (unknown) (no date) (unknown) (unknown) RBC 5.00 (units unknown) (unknown) (unknown) (no date) (unknown) (unknown) RBC (units unknown) (unknown) (unknown) (no date) (unknown) (unknown) RDW 15.3 H (units unknown) (unknown) (unknown) (no date) (unknown) (unknown) RDW (units unknown) (unknown) (unknown) (no date) (unknown) (unknown) RSV (PCR) Negative (units unknown) (unknown) (unknown) (no date) (unknown) (unknown) RSV (PCR) (units unknown) (unknown) (unknown) (no date) (unknown) (unknown) Respiratory Rate 30 H 51 H 53 H (units unknown) (unknown) (unknown) (no date) (unknown) (unknown) Respiratory Rate 30 H (units unknown) (unknown) (unknown) (no date) (unknown) (unknown) Respiratory Rate 31 H 32 H (units unknown) (unknown) (unknown) (no date) (unknown) (unknown) Respiratory Rate 31 H 34 H (units unknown) (unknown) (unknown) (no date) (unknown) (unknown) Respiratory Rate 31 H (units unknown) (unknown) (unknown) (no date) (unknown) (unknown) Respiratory Rate 32 H (units unknown) (unknown) (unknown) (no date) (unknown) (unknown) Respiratory Rate 34 H 32 H 28 H (units unknown) (unknown) (unknown) (no date) (unknown) (unknown) Respiratory Rate 34 H 34 H (units unknown) (unknown) (unknown) (no date) (unknown) (unknown) Respiratory Rate 34 H (units unknown) (unknown) (unknown) (no date) (unknown) (unknown) Respiratory Rate 35 H 31 H 37 H (units unknown) (unknown) (unknown) (no date) (unknown) (unknown) Respiratory Rate 35 H 33 H (units unknown) (unknown) (unknown) (no date) (unknown) (unknown) Respiratory Rate 35 H 36 H (units unknown) (unknown) (unknown) (no date) (unknown) (unknown) Respiratory Rate 35 H (units unknown) (unknown) (unknown) (no date) (unknown) (unknown) Respiratory Rate 36 H 35 H (units unknown) (unknown) (unknown) (no date) (unknown) (unknown) Respiratory Rate 36 H (units unknown) (unknown) (unknown) (no date) (unknown) (unknown) Respiratory Rate 37 H 39 H (units unknown) (unknown) (unknown) (no date) (unknown) (unknown) Respiratory Rate 37 H (units unknown) (unknown) (unknown) (no date) (unknown) (unknown) Respiratory Rate 38 H 37 H (units unknown) (unknown) (unknown) (no date) (unknown) (unknown) Respiratory Rate 38 H (units unknown) (unknown) (unknown) (no date) (unknown) (unknown) Respiratory Rate 39 H (units unknown) (unknown) (unknown) (no date) (unknown) (unknown) Respiratory Rate 40 H 39 H (units unknown) (unknown) (unknown) (no date) (unknown) (unknown) Respiratory Rate 43 H 44 H (units unknown) (unknown) (unknown) (no date) (unknown) (unknown) Respiratory Rate 47 H (units unknown) (unknown) (unknown) (no date) (unknown) (unknown) Respiratory Rate 51 H (units unknown) (unknown) (unknown) (no date) (unknown) (unknown) Review of Systems (units unknown) (unknown) (unknown) (no date) (unknown) (unknown) SARS-CoV-2 (PCR) Negative (units unknown) (unknown) (unknown) (no date) (unknown) (unknown) SARS-CoV-2 (PCR) (units unknown) (unknown) (unknown) (no date) (unknown) (unknown) Safety + Behavioral: (units unknown) (unknown) (unknown) (no date) (unknown) (unknown) Signed By: (units unknown) (unknown) (unknown) (no date) (unknown) (unknown) Skin: Warm dry and intact without rashes, ulcerations or petechiae. (units unknown) (unknown) (unknown) (no date) (unknown) (unknown) Smoking Status Never smoker (units unknown) (unknown) (unknown) (no date) (unknown) (unknown) Social History: (units unknown) (unknown) (unknown) (no date) (unknown) (unknown) Sodium 128 L (units unknown) (unknown) (unknown) (no date) (unknown) (unknown) Sodium (units unknown) (unknown) (unknown) (no date) (unknown) (unknown) Substance Use Type does not use (units unknown) (unknown) (unknown) (no date) (unknown) (unknown) Surgical History (units unknown) (unknown) (unknown) (no date) (unknown) (unknown) Temperature 100.9 F H (units unknown) (unknown) (unknown) (no date) (unknown) (unknown) Temperature 101 F H (units unknown) (unknown) (unknown) (no date) (unknown) (unknown) Temperature 101.1 F H (units unknown) (unknown) (unknown) (no date) (unknown) (unknown) Temperature (units unknown) (unknown) (unknown) (no date) (unknown) (unknown) Threatened By a Person (units unknown) (unknown) (unknown) (no date) (unknown) (unknown) Time Patient Seen: 20:27 (units unknown) (unknown) (unknown) (no date) (unknown) (unknown) Tobacco + Substance use: (units unknown) (unknown) (unknown) (no date) (unknown) (unknown) Total Bilirubin 1.2 (units unknown) (unknown) (unknown) (no date) (unknown) (unknown) Total Bilirubin (units unknown) (unknown) (unknown) (no date) (unknown) (unknown) Total Creatine Kinase 133 (units unknown) (unknown) (unknown) (no date) (unknown) (unknown) Total Creatine Kinase (units unknown) (unknown) (unknown) (no date) (unknown) (unknown) Total Protein 7.7 (units unknown) (unknown) (unknown) (no date) (unknown) (unknown) Total Protein (units unknown) (unknown) (unknown) (no date) (unknown) (unknown) Troponin I 0.016 (units unknown) (unknown) (unknown) (no date) (unknown) (unknown) Troponin I (units unknown) (unknown) (unknown) (no date) (unknown) (unknown) U-100 Insulin) (units unknown) (unknown) (unknown) (no date) (unknown) (unknown) VTE (units unknown) (unknown) (unknown) (no date) (unknown) (unknown) Vital Signs (units unknown) (unknown) (unknown) (no date) (unknown) (unknown) WBC 15.9 H (units unknown) (unknown) (unknown) (no date) (unknown) (unknown) WBC (units unknown) (unknown) (unknown) (no date) (unknown) (unknown) [Embedded Image Not Available] (units unknown) (unknown) (unknown) (no date) (unknown) (unknown) a/B/RSV are all negative. Chest x-ray mild pulmonary vascular congestion. I (units unknown) (unknown) (unknown) (no date) (unknown) (unknown) acute ST changes, depression in lead 1 and aVL, similar in comparison to EKG (units unknown) (unknown) (unknown) (no date) (unknown) (unknown) admitted to the ICU teleICU for atrial fibrillation with RVR, sepsis without (units unknown) (unknown) (unknown) (no date) (unknown) (unknown) afebrile temp 101?, hypertensive urgency BP 193/91, 183/84, tachycardic heart (units unknown) (unknown) (unknown) (no date) (unknown) (unknown) air-patient is stable in no distress sleeping heavily. Currently diltiazem drip (units unknown) (unknown) (unknown) (no date) (unknown) (unknown) alcohol intake frequency other (units unknown) (unknown) (unknown) (no date) (unknown) (unknown) alcohol intake never (units unknown) (unknown) (unknown) (no date) (unknown) (unknown) amputation. ? Patient presents with 5 days of fevers generally feeling unwell (units unknown) (unknown) (unknown) (no date) (unknown) (unknown) amputation. In ED was primary historian she is unsure if he is taking his (units unknown) (unknown) (unknown) (no date) (unknown) (unknown) are present in all 4 quadrants without guarding or rebound, no CVA tenderness. (units unknown) (unknown) (unknown) (no date) (unknown) (unknown) attitude thought context and judgment are appropriate for age. (units unknown) (unknown) (unknown) (no date) (unknown) (unknown) body aches, chills, cough, denies recent exposure to illness, abdominal pain, (units unknown) (unknown) (unknown) (no date) (unknown) (unknown) bruit, no cardiac pulsations present. (units unknown) (unknown) (unknown) (no date) (unknown) (unknown) cellulitis, acute, present on admission- stable (units unknown) (unknown) (unknown) (no date) (unknown) (unknown) changes, constipation, incontinence, melena, rashes, recent changes to (units unknown) (unknown) (unknown) (no date) (unknown) (unknown) clear and mucous membranes are moist. Neck is supple and symmetric, trachea is (units unknown) (unknown) (unknown) (no date) (unknown) (unknown) comparison to EKG from 12/18/2022, last echo 11/2022 EF 35-40%. Patient (units unknown) (unknown) (unknown) (no date) (unknown) (unknown) currently rate controlled (units unknown) (unknown) (unknown) (no date) (unknown) (unknown) difficulty with ambulation, recent falls, head injury, LOC, currently no fever, (units unknown) (unknown) (unknown) (no date) (unknown) (unknown) documented. (units unknown) (unknown) (unknown) (no date) (unknown) (unknown) erythematous warm to touch, cellulitis radial and pedal pulses are normal. (units unknown) (unknown) (unknown) (no date) (unknown) (unknown) extremely resistant to coming into the emergency department, is frequently (units unknown) (unknown) (unknown) (no date) (unknown) (unknown) fevers generally feeling unwell he states his heart rate has been fast, fever x (units unknown) (unknown) (unknown) (no date) (unknown) (unknown) for, FiO2 21. (units unknown) (unknown) (unknown) (no date) (unknown) (unknown) from 12/18/2022, last echo 11/2022 EF 35-40%. Patient admitted to the ICU (units unknown) (unknown) (unknown) (no date) (unknown) (unknown) he states his heart rate has been fast, fever x 5 days, patient is a poor (units unknown) (unknown) (unknown) (no date) (unknown) (unknown) historian but verbalizes that he may have had increased swelling redness and (units unknown) (unknown) (unknown) (no date) (unknown) (unknown) household members spouse (units unknown) (unknown) (unknown) (no date) (unknown) (unknown) hypotension 102/59, 98/54, map 75, HR 86 Afib, RR 20, O2 saturation 94% on room (units unknown) (unknown) (unknown) (no date) (unknown) (unknown) increased swelling redness and pain of the left lower extremity for the past (units unknown) (unknown) (unknown) (no date) (unknown) (unknown) initial lactate 3.2, repeat 1. Sodium 128, Cl 96, BUN 24, bicarb 19, glucose (units unknown) (unknown) (unknown) (no date) (unknown) (unknown) insulin glargine 100 unit/mL 12 unit SUBCUT BEDTIME 05/11/20 01/15/23 History (units unknown) (unknown) (unknown) (no date) (unknown) (unknown) intact, no gross deficits noted of cranial nerves. (units unknown) (unknown) (unknown) (no date) (unknown) (unknown) lisinopril 5 mg tablet 5 mg PO DAILY 90 days #90 tabs 12/21/22 01/15/23 Rx (units unknown) (unknown) (unknown) (no date) (unknown) (unknown) lower extremity cellulitis, hyponatremia (units unknown) (unknown) (unknown) (no date) (unknown) (unknown) medication, illness, injury, or trauma. (units unknown) (unknown) (unknown) (no date) (unknown) (unknown) medications regularly.? He was admitted for AFib RVR in November and was not (units unknown) (unknown) (unknown) (no date) (unknown) (unknown) metformin 500 mg tablet 500 mg PO BID 05/11/20 01/15/23 History (units unknown) (unknown) (unknown) (no date) (unknown) (unknown) metoprolol succinate 50 mg 50 mg PO BID 90 days #180 tabs 12/21/22 01/15/23 Rx (units unknown) (unknown) (unknown) (no date) (unknown) (unknown) midline, no adenopathy, no thyroid enlargement, nontender, no masses palpated. (units unknown) (unknown) (unknown) (no date) (unknown) (unknown) negative acute ST changes, depression in lead 1 and aVL, similar in comparison (units unknown) (unknown) (unknown) (no date) (unknown) (unknown) negative for, FiO2 21. WBC 15.9, newt 13,000, mono 1500 procalcitonin 0.5, (units unknown) (unknown) (unknown) (no date) (unknown) (unknown) negative, COVID influenza a/B/RSV are all negative. 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 Patient (units unknown) (unknown) (unknown) (no date) (unknown) (unknown) pain of the left lower extremity for the past week, nausea and vomiting on way (units unknown) (unknown) (unknown) (no date) (unknown) (unknown) personally reviewed all imaging and EKG. EKG: AFib RVR rate of 169, negative (units unknown) (unknown) (unknown) (no date) (unknown) (unknown) piperacillin [From Zosyn] Allergy Severe Uticaria Verified 05/11/20 22:50 (units unknown) (unknown) (unknown) (no date) (unknown) (unknown) placed patient on Zosyn with Benadryl to be given prior to dosage patient has (units unknown) (unknown) (unknown) (no date) (unknown) (unknown) rate of 169, negative acute ST changes, depression in lead 1 and aVL, similar in (units unknown) (unknown) (unknown) (no date) (unknown) (unknown) rates up to 209, tachypneic respiratory rates 30-50 in atrial fibrillation. (units unknown) (unknown) (unknown) (no date) (unknown) (unknown) retractions, or tachypneic labored breathing (units unknown) (unknown) (unknown) (no date) (unknown) (unknown) rivaroxaban 20 mg tablet (Xarelto) 20 mg PO QPM 05/11/20 01/15/23 History (units unknown) (unknown) (unknown) (no date) (unknown) (unknown) shock secondary to left lower extremity cellulitis, hyponatremia (units unknown) (unknown) (unknown) (no date) (unknown) (unknown) states his primary care is through the [facility].? In the ED patient was (units unknown) (unknown) (unknown) (no date) (unknown) (unknown) subcutaneous solution (Lantus (units unknown) (unknown) (unknown) (no date) (unknown) (unknown) tablet,extended release 24 hr (units unknown) (unknown) (unknown) (no date) (unknown) (unknown) taking medications regularly at that time.? Patient presents with 5 days of (units unknown) (unknown) (unknown) (no date) (unknown) (unknown) tazobactam [From Zosyn] Allergy Severe Uticaria Verified 05/11/20 22:50 (units unknown) (unknown) (unknown) (no date) (unknown) (unknown) teleICU for atrial fibrillation with RVR, sepsis without shock secondary to left (units unknown) (unknown) (unknown) (no date) (unknown) (unknown) time. (units unknown) (unknown) (unknown) (no date) (unknown) (unknown) to EKG from 12/18/2022, (units unknown) (unknown) (unknown) (no date) (unknown) (unknown) to the hospital. (units unknown) (unknown) (unknown) (no date) (unknown) (unknown) tolerated well and not had any reaction. (units unknown) (unknown) (unknown) (no date) (unknown) (unknown) urinary incontinence/retent ion, dysuria, frequency, urgency, hematuria, bowel (units unknown) (unknown) (unknown) (no date) (unknown) (unknown) vascular congestion. I personally reviewed all imaging and EKG. EKG: AFib RVR (units unknown) (unknown) (unknown) (no date) (unknown) (unknown) vision, difficulty swallowing, speech impairment, weakness, numbness, tingling, (units unknown) (unknown) (unknown) (no date) (unknown) (unknown) week, nausea and vomiting on way to the hospital. Patient was sent to be (units unknown) (unknown) (unknown) (no date) (unknown) (unknown) wheezes, rhonchi, or rales. (units unknown) (unknown) Result panel 437 (unknown) (no date) (unknown) (unknown) (no value) (units unknown) (unknown) (unknown) (no date) (unknown) (unknown) (past 8 hours): (units unknown) (unknown) (unknown) (no date) (unknown) (unknown) -1 L fluid bolus given on admit, followed by NS at 150 cc/hour (units unknown) (unknown) (unknown) (no date) (unknown) (unknown) -A1c has been ordered, A1c machine has been down (units unknown) (unknown) (unknown) (no date) (unknown) (unknown) -Admit 110/55, MAP 81, Afib, RR 20, O2 saturation 94% on room air (units unknown) (unknown) (unknown) (no date) (unknown) (unknown) -BMI 30.8 (units unknown) (unknown) (unknown) (no date) (unknown) (unknown) -Chest x-ray mild pulmonary vascular congestion. (units unknown) (unknown) (unknown) (no date) (unknown) (unknown) -ED : BP 193/91, 183/84, (units unknown) (unknown) (unknown) (no date) (unknown) (unknown) -ED :temp 101?, BP 193/91, 183/84, HR to 209, RR 30-50. (units unknown) (unknown) (unknown) (no date) (unknown) (unknown) -I personally reviewed all imaging and EKG. EKG: AFib RVR rate of 169, (units unknown) (unknown) (unknown) (no date) (unknown) (unknown) -In ED Hr up to 209 (units unknown) (unknown) (unknown) (no date) (unknown) (unknown) -Mag 1.2 ordered 2 g rider (units unknown) (unknown) (unknown) (no date) (unknown) (unknown) -SOFA:2, febrile, tachycardic, tachypneic (units unknown) (unknown) (unknown) (no date) (unknown) (unknown) -Sodium 128, Cl 96, BUN 24, bicarb 19, glucose 252 (units unknown) (unknown) (unknown) (no date) (unknown) (unknown) -Sodium 128, Cl 96, BUN 24, bicarb 19, glucose 252, Mag 1.2, PT 19.2, INR 1.7, (units unknown) (unknown) (unknown) (no date) (unknown) (unknown) -VBG: PH 7.44, pCO2 30.5, PO2 34, bicarb 21, TCO2 21, O2 sat 69%, BE negative (units unknown) (unknown) (unknown) (no date) (unknown) (unknown) -WBC 15.9, newt 13,000, mono 1500 procalcitonin 0.5, initial lactate 3.2, repeat (units unknown) (unknown) (unknown) (no date) (unknown) (unknown) -admit continued to have a low-grade fever 100.9, developed hypotension 102/59, (units unknown) (unknown) (unknown) (no date) (unknown) (unknown) -admit hypotension 102/59, 98/54, map 75 (units unknown) (unknown) (unknown) (no date) (unknown) (unknown) -based on results of trending inflammatory markers, response to IV Zosyn and (units unknown) (unknown) (unknown) (no date) (unknown) (unknown) -blood sugar checks a.c. HS, with sliding-scale coverage, continue Lantus (units unknown) (unknown) (unknown) (no date) (unknown) (unknown) -continue Xarelto (units unknown) (unknown) (unknown) (no date) (unknown) (unknown) -dietary consult ordered regarding nutritional education and information for (units unknown) (unknown) (unknown) (no date) (unknown) (unknown) -holding patient's metoprolol and lisinopril restarted morning (units unknown) (unknown) (unknown) (no date) (unknown) (unknown) -last echo 11/2022 EF 35-40%. 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 (units unknown) (unknown) (unknown) (no date) (unknown) (unknown) -patient admitted under diabetic protocol (units unknown) (unknown) (unknown) (no date) (unknown) (unknown) -patient had a history of urticaria with a previous dosage of Zosyn in 2019, (units unknown) (unknown) (unknown) (no date) (unknown) (unknown) -patient has been noncompliant with Cardiology follow-up and medications (units unknown) (unknown) (unknown) (no date) (unknown) (unknown) -patient has diabetes with a history of osteomyelitis, 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 (units unknown) (unknown) (unknown) (no date) (unknown) (unknown) -patient received vancomycin in ED (units unknown) (unknown) (unknown) (no date) (unknown) (unknown) -patient was placed on diltiazem drip in the ED-currently on 2.5 (units unknown) (unknown) (unknown) (no date) (unknown) (unknown) -respiratory panel negative (units unknown) (unknown) (unknown) (no date) (unknown) (unknown) -restart metoprolol 50 mg b.i.d in am (units unknown) (unknown) (unknown) (no date) (unknown) (unknown) -the patient is at much higher risk for medical and surgical complications due (units unknown) (unknown) (unknown) (no date) (unknown) (unknown) -will leave patient on drip overnight for rest (units unknown) (unknown) (unknown) (no date) (unknown) (unknown) [id number] (units unknown) (unknown) (unknown) (no date) (unknown) (unknown) 01/15/23 01/15/23 01/15/23 (units unknown) (unknown) (unknown) (no date) (unknown) (unknown) 01/15/23 01/15/23 (units unknown) (unknown) (unknown) (no date) (unknown) (unknown) 01/15/23 15:25 (units unknown) (unknown) (unknown) (no date) (unknown) (unknown) 01/15/23 (units unknown) (unknown) (unknown) (no date) (unknown) (unknown) 1. Atrial fibrillation with RVR, acute on chronic, present on admission (units unknown) (unknown) (unknown) (no date) (unknown) (unknown) 1. (units unknown) (unknown) (unknown) (no date) (unknown) (unknown) 15:25 15:25 15:25 (units unknown) (unknown) (unknown) (no date) (unknown) (unknown) 15:25 15:25 15:49 (units unknown) (unknown) (unknown) (no date) (unknown) (unknown) 15:26 01/15/23 (units unknown) (unknown) (unknown) (no date) (unknown) (unknown) 15:27 01/15/23 (units unknown) (unknown) (unknown) (no date) (unknown) (unknown) 15:27 (units unknown) (unknown) (unknown) (no date) (unknown) (unknown) 15:29 01/15/23 (units unknown) (unknown) (unknown) (no date) (unknown) (unknown) 15:30 01/15/23 (units unknown) (unknown) (unknown) (no date) (unknown) (unknown) 15:30 (units unknown) (unknown) (unknown) (no date) (unknown) (unknown) 15:35 01/15/23 (units unknown) (unknown) (unknown) (no date) (unknown) (unknown) 15:40 (units unknown) (unknown) (unknown) (no date) (unknown) (unknown) 15:45 01/15/23 (units unknown) (unknown) (unknown) (no date) (unknown) (unknown) 15:48 01/15/23 (units unknown) (unknown) (unknown) (no date) (unknown) (unknown) 15:48 (units unknown) (unknown) (unknown) (no date) (unknown) (unknown) 15:50 01/15/23 (units unknown) (unknown) (unknown) (no date) (unknown) (unknown) 15:55 01/15/23 (units unknown) (unknown) (unknown) (no date) (unknown) (unknown) 15:55 (units unknown) (unknown) (unknown) (no date) (unknown) (unknown) 16:00 01/15/23 (units unknown) (unknown) (unknown) (no date) (unknown) (unknown) 16:00 (units unknown) (unknown) (unknown) (no date) (unknown) (unknown) 16:05 01/15/23 (units unknown) (unknown) (unknown) (no date) (unknown) (unknown) 16:10 01/15/23 (units unknown) (unknown) (unknown) (no date) (unknown) (unknown) 16:10 (units unknown) (unknown) (unknown) (no date) (unknown) (unknown) 16:15 01/15/23 (units unknown) (unknown) (unknown) (no date) (unknown) (unknown) 16:15 (units unknown) (unknown) (unknown) (no date) (unknown) (unknown) 16:20 01/15/23 (units unknown) (unknown) (unknown) (no date) (unknown) (unknown) 16:25 01/15/23 (units unknown) (unknown) (unknown) (no date) (unknown) (unknown) 16:25 (units unknown) (unknown) (unknown) (no date) (unknown) (unknown) 16:30 01/15/23 (units unknown) (unknown) (unknown) (no date) (unknown) (unknown) 16:30 (units unknown) (unknown) (unknown) (no date) (unknown) (unknown) 16:35 01/15/23 (units unknown) (unknown) (unknown) (no date) (unknown) (unknown) 16:40 01/15/23 (units unknown) (unknown) (unknown) (no date) (unknown) (unknown) 16:45 01/15/23 (units unknown) (unknown) (unknown) (no date) (unknown) (unknown) 16:45 (units unknown) (unknown) (unknown) (no date) (unknown) (unknown) 16:50 01/15/23 (units unknown) (unknown) (unknown) (no date) (unknown) (unknown) 16:50 (units unknown) (unknown) (unknown) (no date) (unknown) (unknown) 16:51 (units unknown) (unknown) (unknown) (no date) (unknown) (unknown) 16:55 01/15/23 (units unknown) (unknown) (unknown) (no date) (unknown) (unknown) 17:00 01/15/23 (units unknown) (unknown) (unknown) (no date) (unknown) (unknown) 17:00 (units unknown) (unknown) (unknown) (no date) (unknown) (unknown) 17:05 01/15/23 (units unknown) (unknown) (unknown) (no date) (unknown) (unknown) 17:05 (units unknown) (unknown) (unknown) (no date) (unknown) (unknown) 17:10 01/15/23 (units unknown) (unknown) (unknown) (no date) (unknown) (unknown) 17:15 01/15/23 (units unknown) (unknown) (unknown) (no date) (unknown) (unknown) 17:15 (units unknown) (unknown) (unknown) (no date) (unknown) (unknown) 17:20 01/15/23 (units unknown) (unknown) (unknown) (no date) (unknown) (unknown) 17:20 (units unknown) (unknown) (unknown) (no date) (unknown) (unknown) 17:25 01/15/23 (units unknown) (unknown) (unknown) (no date) (unknown) (unknown) 17:30 01/15/23 (units unknown) (unknown) (unknown) (no date) (unknown) (unknown) 17:30 (units unknown) (unknown) (unknown) (no date) (unknown) (unknown) 17:35 03/27/23 (units unknown) (unknown) (unknown) (no date) (unknown) (unknown) 17:35 (units unknown) (unknown) (unknown) (no date) (unknown) (unknown) 17:40 01/15/23 (units unknown) (unknown) (unknown) (no date) (unknown) (unknown) 17:45 01/15/23 (units unknown) (unknown) (unknown) (no date) (unknown) (unknown) 17:45 (units unknown) (unknown) (unknown) (no date) (unknown) (unknown) 17:50 01/15/23 (units unknown) (unknown) (unknown) (no date) (unknown) (unknown) 17:50 (units unknown) (unknown) (unknown) (no date) (unknown) (unknown) 17:55 01/15/23 (units unknown) (unknown) (unknown) (no date) (unknown) (unknown) 17:55 (units unknown) (unknown) (unknown) (no date) (unknown) (unknown) 18:07 (units unknown) (unknown) (unknown) (no date) (unknown) (unknown) 18:11 01/15/23 (units unknown) (unknown) (unknown) (no date) (unknown) (unknown) 18:15 01/15/23 (units unknown) (unknown) (unknown) (no date) (unknown) (unknown) 18:15 19:10 (units unknown) (unknown) (unknown) (no date) (unknown) (unknown) 18:20 (units unknown) (unknown) (unknown) (no date) (unknown) (unknown) 18:25 01/15/23 (units unknown) (unknown) (unknown) (no date) (unknown) (unknown) 18:26 01/15/23 (units unknown) (unknown) (unknown) (no date) (unknown) (unknown) 18:30 01/15/23 (units unknown) (unknown) (unknown) (no date) (unknown) (unknown) 18:35 (units unknown) (unknown) (unknown) (no date) (unknown) (unknown) 18:40 01/15/23 (units unknown) (unknown) (unknown) (no date) (unknown) (unknown) 18:45 01/15/23 (units unknown) (unknown) (unknown) (no date) (unknown) (unknown) 18:50 (units unknown) (unknown) (unknown) (no date) (unknown) (unknown) 2. Sepsis without septic shock, metabolic, likely secondary to left leg (units unknown) (unknown) (unknown) (no date) (unknown) (unknown) 2.5. VBG: PH 7.44, pCO2 30.5, PO2 34, bicarb 21, TCO2 21, O2 sat 69%, BE (units unknown) (unknown) (unknown) (no date) (unknown) (unknown) 252, Mag 1.2, PT 19.2, INR 1.7, lipase 367, BNP 2810, sofa score:2, anion gap (units unknown) (unknown) (unknown) (no date) (unknown) (unknown) 3. Essential hypertension, with hypertensive urgency, acute on chronic, present (units unknown) (unknown) (unknown) (no date) (unknown) (unknown) 3rd toe amputation in 2019 (units unknown) (unknown) (unknown) (no date) (unknown) (unknown) 4. Type 2 diabetes insulin-dependent, with hyperglycemia, acute on chronic, with (units unknown) (unknown) (unknown) (no date) (unknown) (unknown) 5 days, patient is a poor historian but verbalizes that he may have had (units unknown) (unknown) (unknown) (no date) (unknown) (unknown) 5. Overweight, mild, acute on chronic, present on admission (units unknown) (unknown) (unknown) (no date) (unknown) (unknown) 98/54, map 75, HR 86 Afib, RR 20, O2 saturation 94% (units unknown) (unknown) (unknown) (no date) (unknown) (unknown) ALT 29 (units unknown) (unknown) (unknown) (no date) (unknown) (unknown) ALT (units unknown) (unknown) (unknown) (no date) (unknown) (unknown) APTT 33 (units unknown) (unknown) (unknown) (no date) (unknown) (unknown) APTT (units unknown) (unknown) (unknown) (no date) (unknown) (unknown) AST 32 (units unknown) (unknown) (unknown) (no date) (unknown) (unknown) AST (units unknown) (unknown) (unknown) (no date) (unknown) (unknown) Abdomen: Soft nontender, negative for organomegaly, or masses. Bowel sounds (units unknown) (unknown) (unknown) (no date) (unknown) (unknown) Afib (units unknown) (unknown) (unknown) (no date) (unknown) (unknown) Age/Sex: 67 / M (units unknown) (unknown) (unknown) (no date) (unknown) (unknown) Albumin 4.1 (units unknown) (unknown) (unknown) (no date) (unknown) (unknown) Albumin (units unknown) (unknown) (unknown) (no date) (unknown) (unknown) Albumin/Globulin Ratio 1.1 (units unknown) (unknown) (unknown) (no date) (unknown) (unknown) Albumin/Globulin Ratio (units unknown) (unknown) (unknown) (no date) (unknown) (unknown) Alkaline Phosphatase 97 (units unknown) (unknown) (unknown) (no date) (unknown) (unknown) Alkaline Phosphatase (units unknown) (unknown) (unknown) (no date) (unknown) (unknown) All 12 point systems reviewed with the patient and are negative except otherwise (units unknown) (unknown) (unknown) (no date) (unknown) (unknown) Allergies (units unknown) (unknown) (unknown) (no date) (unknown) (unknown) Allergy/AdvReac Type Severity Reaction Status Date / Time (units unknown) (unknown) (unknown) (no date) (unknown) (unknown) Assessment + Plan narrative: (units unknown) (unknown) (unknown) (no date) (unknown) (unknown) Assessment + Plan (units unknown) (unknown) (unknown) (no date) (unknown) (unknown) At the time of admit continued to have a low-grade fever 100.9, developed (units unknown) (unknown) (unknown) (no date) (unknown) (unknown) BUN 24 H (units unknown) (unknown) (unknown) (no date) (unknown) (unknown) BUN (units unknown) (unknown) (unknown) (no date) (unknown) (unknown) BUN/Creatinine Ratio 21.4 (units unknown) (unknown) (unknown) (no date) (unknown) (unknown) BUN/Creatinine Ratio (units unknown) (unknown) (unknown) (no date) (unknown) (unknown) Baso # (Auto) 0 (units unknown) (unknown) (unknown) (no date) (unknown) (unknown) Baso # (Auto) (units unknown) (unknown) (unknown) (no date) (unknown) (unknown) Baso % (Auto) 0.3 (units unknown) (unknown) (unknown) (no date) (unknown) (unknown) Baso % (Auto) (units unknown) (unknown) (unknown) (no date) (unknown) (unknown) Been Physically Hurt or No (units unknown) (unknown) (unknown) (no date) (unknown) (unknown) Blood Pressure 102/59 L (units unknown) (unknown) (unknown) (no date) (unknown) (unknown) Blood Pressure 105/57 L (units unknown) (unknown) (unknown) (no date) (unknown) (unknown) Blood Pressure 106/58 L (units unknown) (unknown) (unknown) (no date) (unknown) (unknown) Blood Pressure 107/53 L (units unknown) (unknown) (unknown) (no date) (unknown) (unknown) Blood Pressure 108/58 L 104/54 L (units unknown) (unknown) (unknown) (no date) (unknown) (unknown) Blood Pressure 113/55 L 114/58 L (units unknown) (unknown) (unknown) (no date) (unknown) (unknown) Blood Pressure 113/58 L 108/59 L (units unknown) (unknown) (unknown) (no date) (unknown) (unknown) Blood Pressure 114/56 L 96/54 L (units unknown) (unknown) (unknown) (no date) (unknown) (unknown) Blood Pressure 115/58 L (units unknown) (unknown) (unknown) (no date) (unknown) (unknown) Blood Pressure 119/66 130/56 L (units unknown) (unknown) (unknown) (no date) (unknown) (unknown) Blood Pressure 120/56 L 126/61 (units unknown) (unknown) (unknown) (no date) (unknown) (unknown) Blood Pressure 122/57 L (units unknown) (unknown) (unknown) (no date) (unknown) (unknown) Blood Pressure 123/72 117/56 L (units unknown) (unknown) (unknown) (no date) (unknown) (unknown) Blood Pressure 125/58 L (units unknown) (unknown) (unknown) (no date) (unknown) (unknown) Blood Pressure 125/63 (units unknown) (unknown) (unknown) (no date) (unknown) (unknown) Blood Pressure 126/58 L (units unknown) (unknown) (unknown) (no date) (unknown) (unknown) Blood Pressure 127/57 L (units unknown) (unknown) (unknown) (no date) (unknown) (unknown) Blood Pressure 143/63 H (units unknown) (unknown) (unknown) (no date) (unknown) (unknown) Blood Pressure 156/60 H 122/58 L (units unknown) (unknown) (unknown) (no date) (unknown) (unknown) Blood Pressure 172/92 H (units unknown) (unknown) (unknown) (no date) (unknown) (unknown) Blood Pressure 183/84 H 140/69 (units unknown) (unknown) (unknown) (no date) (unknown) (unknown) Blood Pressure 193/91 H (units unknown) (unknown) (unknown) (no date) (unknown) (unknown) Blood Pressure 98/54 L (units unknown) (unknown) (unknown) (no date) (unknown) (unknown) Blood Pressure (units unknown) (unknown) (unknown) (no date) (unknown) (unknown) CK-MB (CK-2) 1.09 (units unknown) (unknown) (unknown) (no date) (unknown) (unknown) CK-MB (CK-2) Rel Index 0.8 L (units unknown) (unknown) (unknown) (no date) (unknown) (unknown) CK-MB (CK-2) Rel Index (units unknown) (unknown) (unknown) (no date) (unknown) (unknown) CK-MB (CK-2) (units unknown) (unknown) (unknown) (no date) (unknown) (unknown) Calcium 8.9 (units unknown) (unknown) (unknown) (no date) (unknown) (unknown) Calcium (units unknown) (unknown) (unknown) (no date) (unknown) (unknown) Carbon Dioxide 19 L (units unknown) (unknown) (unknown) (no date) (unknown) (unknown) Carbon Dioxide (units unknown) (unknown) (unknown) (no date) (unknown) (unknown) Cardio: regular rate and rhythm without murmur, rubs, or gallops, no carotid (units unknown) (unknown) (unknown) (no date) (unknown) (unknown) Chest: Normal AP diameter and contour without kyphoscoliosis, no nasal flaring, (units unknown) (unknown) (unknown) (no date) (unknown) (unknown) Chief complaint: vomiting/shaking/fe trell (units unknown) (unknown) (unknown) (no date) (unknown) (unknown) Chloride 96 L (units unknown) (unknown) (unknown) (no date) (unknown) (unknown) Chloride (units unknown) (unknown) (unknown) (no date) (unknown) (unknown) Creatinine 1.12 (units unknown) (unknown) (unknown) (no date) (unknown) (unknown) Creatinine (units unknown) (unknown) (unknown) (no date) (unknown) (unknown) : 1955 Acct:[id number] (units unknown) (unknown) (unknown) (no date) (unknown) (unknown) Date Patient Seen: 01/15/23 (units unknown) (unknown) (unknown) (no date) (unknown) (unknown) Date of Service: 01/15/23 (units unknown) (unknown) (unknown) (no date) (unknown) (unknown) Deep Vein Thrombosis/Pulmonar y Embolism Present on Admission: No (units unknown) (unknown) (unknown) (no date) (unknown) (unknown) Diabetes mellitus (units unknown) (unknown) (unknown) (no date) (unknown) (unknown) Diabetes (units unknown) (unknown) (unknown) (no date) (unknown) (unknown) Environment (units unknown) (unknown) (unknown) (no date) (unknown) (unknown) Eos # (Auto) 0 (units unknown) (unknown) (unknown) (no date) (unknown) (unknown) Eos # (Auto) (units unknown) (unknown) (unknown) (no date) (unknown) (unknown) Eos % (Auto) 0.0 L (units unknown) (unknown) (unknown) (no date) (unknown) (unknown) Eos % (Auto) (units unknown) (unknown) (unknown) (no date) (unknown) (unknown) Estimated GFR > 60 (units unknown) (unknown) (unknown) (no date) (unknown) (unknown) Estimated GFR (units unknown) (unknown) (unknown) (no date) (unknown) (unknown) Exam Narrative: (units unknown) (unknown) (unknown) (no date) (unknown) (unknown) Exam (units unknown) (unknown) (unknown) (no date) (unknown) (unknown) Family + Social History (units unknown) (unknown) (unknown) (no date) (unknown) (unknown) Family History (units unknown) (unknown) (unknown) (no date) (unknown) (unknown) Father Smoker (units unknown) (unknown) (unknown) (no date) (unknown) (unknown) Feels Safe in Current Yes (units unknown) (unknown) (unknown) (no date) (unknown) (unknown) General: Patient is a well-developed, well-nourished in no distress at this (units unknown) (unknown) (unknown) (no date) (unknown) (unknown) Globulin 3.6 (units unknown) (unknown) (unknown) (no date) (unknown) (unknown) Globulin (units unknown) (unknown) (unknown) (no date) (unknown) (unknown) Glucose 252 H (units unknown) (unknown) (unknown) (no date) (unknown) (unknown) Glucose (units unknown) (unknown) (unknown) (no date) (unknown) (unknown) HEENT: Normocephalic, atraumatic, extraocular muscles intact, oral pharynx is (units unknown) (unknown) (unknown) (no date) (unknown) (unknown) Hct 43.2 (units unknown) (unknown) (unknown) (no date) (unknown) (unknown) Hct (units unknown) (unknown) (unknown) (no date) (unknown) (unknown) Heart attack (units unknown) (unknown) (unknown) (no date) (unknown) (unknown) Hgb 14.6 (units unknown) (unknown) (unknown) (no date) (unknown) (unknown) Hgb (units unknown) (unknown) (unknown) (no date) (unknown) (unknown) History + Physical Report (units unknown) (unknown) (unknown) (no date) (unknown) (unknown) History of Present Illness (units unknown) (unknown) (unknown) (no date) (unknown) (unknown) History of hernia repair (units unknown) (unknown) (unknown) (no date) (unknown) (unknown) History of neck surgery (units unknown) (unknown) (unknown) (no date) (unknown) (unknown) Home Medications and Allergies (units unknown) (unknown) (unknown) (no date) (unknown) (unknown) Home Medications (units unknown) (unknown) (unknown) (no date) (unknown) (unknown) Hyperlipidemia (units unknown) (unknown) (unknown) (no date) (unknown) (unknown) Hypertension (units unknown) (unknown) (unknown) (no date) (unknown) (unknown) INR 1.7 H (units unknown) (unknown) (unknown) (no date) (unknown) (unknown) INR (units unknown) (unknown) (unknown) (no date) (unknown) (unknown) Influenza A (RT-PCR) Flu a negative (units unknown) (unknown) (unknown) (no date) (unknown) (unknown) Influenza A (RT-PCR) (units unknown) (unknown) (unknown) (no date) (unknown) (unknown) Influenza B (RT-PCR) Flu b negative (units unknown) (unknown) (unknown) (no date) (unknown) (unknown) Influenza B (RT-PCR) (units unknown) (unknown) (unknown) (no date) (unknown) (unknown) [address] [id number] (units unknown) (unknown) (unknown) (no date) (unknown) (unknown) Arvind Brock is a 67yo M with PMH of A-fib on [place] [id number] with peripheral (units unknown) (unknown) (unknown) (no date) (unknown) (unknown) Laboratory Results - last 24 hr (units unknown) (unknown) (unknown) (no date) (unknown) (unknown) Labs (units unknown) (unknown) (unknown) (no date) (unknown) (unknown) Labs: (units unknown) (unknown) (unknown) (no date) (unknown) (unknown) Lactate 1.0 (units unknown) (unknown) (unknown) (no date) (unknown) (unknown) Lactate 3.2 H (units unknown) (unknown) (unknown) (no date) (unknown) (unknown) Lactate (units unknown) (unknown) (unknown) (no date) (unknown) (unknown) Lipase 367 H (units unknown) (unknown) (unknown) (no date) (unknown) (unknown) Lipase (units unknown) (unknown) (unknown) (no date) (unknown) (unknown) Lungs: Auscultation of all lung neff are clear without adventitious sounds, (units unknown) (unknown) (unknown) (no date) (unknown) (unknown) Lymph # (Auto) 1400 (units unknown) (unknown) (unknown) (no date) (unknown) (unknown) Lymph # (Auto) (units unknown) (unknown) (unknown) (no date) (unknown) (unknown) Lymph % (Auto) 9.0 L (units unknown) (unknown) (unknown) (no date) (unknown) (unknown) Lymph % (Auto) (units unknown) (unknown) (unknown) (no date) (unknown) (unknown) MCH 29.3 (units unknown) (unknown) (unknown) (no date) (unknown) (unknown) MCH (units unknown) (unknown) (unknown) (no date) (unknown) (unknown) MCHC 33.8 (units unknown) (unknown) (unknown) (no date) (unknown) (unknown) MCHC (units unknown) (unknown) (unknown) (no date) (unknown) (unknown) MCV 86.5 (units unknown) (unknown) (unknown) (no date) (unknown) (unknown) MCV (units unknown) (unknown) (unknown) (no date) (unknown) (unknown) Magnesium 1.2 L (units unknown) (unknown) (unknown) (no date) (unknown) (unknown) Magnesium (units unknown) (unknown) (unknown) (no date) (unknown) (unknown) Medical History (units unknown) (unknown) (unknown) (no date) (unknown) (unknown) Medication Instructions Recorded Confirmed Type (units unknown) (unknown) (unknown) (no date) (unknown) (unknown) Meds (units unknown) (unknown) (unknown) (no date) (unknown) (unknown) [place] # (Auto) 1500 H (units unknown) (unknown) (unknown) (no date) (unknown) (unknown) [place] # (Auto) (units unknown) (unknown) (unknown) (no date) (unknown) (unknown) [place] % (Auto) 9.2 (units unknown) (unknown) (unknown) (no date) (unknown) (unknown) [place] % (Auto) (units unknown) (unknown) (unknown) (no date) (unknown) (unknown) Mother No significant medical problems (units unknown) (unknown) (unknown) (no date) (unknown) (unknown) Musculoskeletal: Bilateral lower extremity edema, left greater than right, left (units unknown) (unknown) (unknown) (no date) (unknown) (unknown) NT-Pro-B Natriuret Pep 2810 H (units unknown) (unknown) (unknown) (no date) (unknown) (unknown) NT-Pro-B Natriuret Pep (units unknown) (unknown) (unknown) (no date) (unknown) (unknown) Narrative (units unknown) (unknown) (unknown) (no date) (unknown) (unknown) Narrative: (units unknown) (unknown) (unknown) (no date) (unknown) (unknown) Nasal Screen MRSA (PCR) Not detected (units unknown) (unknown) (unknown) (no date) (unknown) (unknown) Nasal Screen MRSA (PCR) (units unknown) (unknown) (unknown) (no date) (unknown) (unknown) Negative for JVD (units unknown) (unknown) (unknown) (no date) (unknown) (unknown) Neuro: Alert and orientated x3, moves all extremities, sensation to touch (units unknown) (unknown) (unknown) (no date) (unknown) (unknown) Neuropathy of both feet (units unknown) (unknown) (unknown) (no date) (unknown) (unknown) Neut # (Auto) 84477 H (units unknown) (unknown) (unknown) (no date) (unknown) (unknown) Neut # (Auto) (units unknown) (unknown) (unknown) (no date) (unknown) (unknown) Neut % (Auto) 81.5 H (units unknown) (unknown) (unknown) (no date) (unknown) (unknown) Neut % (Auto) (units unknown) (unknown) (unknown) (no date) (unknown) (unknown) Objective (units unknown) (unknown) (unknown) (no date) (unknown) (unknown) On admit patient denies chest pain, shortness in breath, headache, changes in (units unknown) (unknown) (unknown) (no date) (unknown) (unknown) Oxygen Delivery Method Room Air (units unknown) (unknown) (unknown) (no date) (unknown) (unknown) Oxygen Delivery Method (units unknown) (unknown) (unknown) (no date) (unknown) (unknown) Oxygen Flow Rate 0 (units unknown) (unknown) (unknown) (no date) (unknown) (unknown) Oxygen Flow Rate (units unknown) (unknown) (unknown) (no date) (unknown) (unknown) PT 19.2 H (units unknown) (unknown) (unknown) (no date) (unknown) (unknown) PT (units unknown) (unknown) (unknown) (no date) (unknown) (unknown) Patient History (units unknown) (unknown) (unknown) (no date) (unknown) (unknown) Patient was given an initial dose of diltiazem and then placed on a Dilt drip. (units unknown) (unknown) (unknown) (no date) (unknown) (unknown) Patient: Arvind Brock MR#: [id number] (units unknown) (unknown) (unknown) (no date) (unknown) (unknown) Plt Count 162 (units unknown) (unknown) (unknown) (no date) (unknown) (unknown) Plt Count (units unknown) (unknown) (unknown) (no date) (unknown) (unknown) Potassium 4.5 (units unknown) (unknown) (unknown) (no date) (unknown) (unknown) Potassium (units unknown) (unknown) (unknown) (no date) (unknown) (unknown) Prior Living Arrangements House (units unknown) (unknown) (unknown) (no date) (unknown) (unknown) Procalcitonin 0.50 (units unknown) (unknown) (unknown) (no date) (unknown) (unknown) Procalcitonin (units unknown) (unknown) (unknown) (no date) (unknown) (unknown) Provider: Piper Brannon [employer]- (units unknown) (unknown) (unknown) (no date) (unknown) (unknown) Psych: Patient has a well-kept appearance, appropriate affect, mental status (units unknown) (unknown) (unknown) (no date) (unknown) (unknown) Pulse Oximetry 93 93 (units unknown) (unknown) (unknown) (no date) (unknown) (unknown) Pulse Oximetry 93 94 (units unknown) (unknown) (unknown) (no date) (unknown) (unknown) Pulse Oximetry 93 (units unknown) (unknown) (unknown) (no date) (unknown) (unknown) Pulse Oximetry 94 94 (units unknown) (unknown) (unknown) (no date) (unknown) (unknown) Pulse Oximetry 94 95 95 (units unknown) (unknown) (unknown) (no date) (unknown) (unknown) Pulse Oximetry 94 95 (units unknown) (unknown) (unknown) (no date) (unknown) (unknown) Pulse Oximetry 94 (units unknown) (unknown) (unknown) (no date) (unknown) (unknown) Pulse Oximetry 95 91 (units unknown) (unknown) (unknown) (no date) (unknown) (unknown) Pulse Oximetry 95 94 94 (units unknown) (unknown) (unknown) (no date) (unknown) (unknown) Pulse Oximetry 95 95 (units unknown) (unknown) (unknown) (no date) (unknown) (unknown) Pulse Oximetry 95 96 (units unknown) (unknown) (unknown) (no date) (unknown) (unknown) Pulse Oximetry 95 (units unknown) (unknown) (unknown) (no date) (unknown) (unknown) Pulse Oximetry 96 (units unknown) (unknown) (unknown) (no date) (unknown) (unknown) Pulse Oximetry 97 98 (units unknown) (unknown) (unknown) (no date) (unknown) (unknown) Pulse Oximetry 99 95 93 (units unknown) (unknown) (unknown) (no date) (unknown) (unknown) Pulse Oximetry 99 (units unknown) (unknown) (unknown) (no date) (unknown) (unknown) Pulse Rate 100 H 104 H (units unknown) (unknown) (unknown) (no date) (unknown) (unknown) Pulse Rate 101 H (units unknown) (unknown) (unknown) (no date) (unknown) (unknown) Pulse Rate 102 H 105 H (units unknown) (unknown) (unknown) (no date) (unknown) (unknown) Pulse Rate 102 H (units unknown) (unknown) (unknown) (no date) (unknown) (unknown) Pulse Rate 104 H 108 H (units unknown) (unknown) (unknown) (no date) (unknown) (unknown) Pulse Rate 104 H (units unknown) (unknown) (unknown) (no date) (unknown) (unknown) Pulse Rate 106 H 110 H (units unknown) (unknown) (unknown) (no date) (unknown) (unknown) Pulse Rate 106 H (units unknown) (unknown) (unknown) (no date) (unknown) (unknown) Pulse Rate 107 H 107 H (units unknown) (unknown) (unknown) (no date) (unknown) (unknown) Pulse Rate 108 H 105 H (units unknown) (unknown) (unknown) (no date) (unknown) (unknown) Pulse Rate 108 H (units unknown) (unknown) (unknown) (no date) (unknown) (unknown) Pulse Rate 109 H (units unknown) (unknown) (unknown) (no date) (unknown) (unknown) Pulse Rate 110 H 109 H (units unknown) (unknown) (unknown) (no date) (unknown) (unknown) Pulse Rate 112 H (units unknown) (unknown) (unknown) (no date) (unknown) (unknown) Pulse Rate 115 H 111 H (units unknown) (unknown) (unknown) (no date) (unknown) (unknown) Pulse Rate 116 H (units unknown) (unknown) (unknown) (no date) (unknown) (unknown) Pulse Rate 123 H 118 H (units unknown) (unknown) (unknown) (no date) (unknown) (unknown) Pulse Rate 135 H (units unknown) (unknown) (unknown) (no date) (unknown) (unknown) Pulse Rate 138 H 126 H (units unknown) (unknown) (unknown) (no date) (unknown) (unknown) Pulse Rate 209 H 172 H 172 H (units unknown) (unknown) (unknown) (no date) (unknown) (unknown) Pulse Rate 92 H 100 H 95 H (units unknown) (unknown) (unknown) (no date) (unknown) (unknown) Pulse Rate 93 H 89 90 (units unknown) (unknown) (unknown) (no date) (unknown) (unknown) Pulse Rate 95 H 86 86 (units unknown) (unknown) (unknown) (no date) (unknown) (unknown) Quality (units unknown) (unknown) (unknown) (no date) (unknown) (unknown) RBC 5.00 (units unknown) (unknown) (unknown) (no date) (unknown) (unknown) RBC (units unknown) (unknown) (unknown) (no date) (unknown) (unknown) RDW 15.3 H (units unknown) (unknown) (unknown) (no date) (unknown) (unknown) RDW (units unknown) (unknown) (unknown) (no date) (unknown) (unknown) RSV (PCR) Negative (units unknown) (unknown) (unknown) (no date) (unknown) (unknown) RSV (PCR) (units unknown) (unknown) (unknown) (no date) (unknown) (unknown) Respiratory Rate 30 H 51 H 53 H (units unknown) (unknown) (unknown) (no date) (unknown) (unknown) Respiratory Rate 30 H (units unknown) (unknown) (unknown) (no date) (unknown) (unknown) Respiratory Rate 31 H 32 H (units unknown) (unknown) (unknown) (no date) (unknown) (unknown) Respiratory Rate 31 H 34 H (units unknown) (unknown) (unknown) (no date) (unknown) (unknown) Respiratory Rate 31 H (units unknown) (unknown) (unknown) (no date) (unknown) (unknown) Respiratory Rate 32 H (units unknown) (unknown) (unknown) (no date) (unknown) (unknown) Respiratory Rate 34 H 32 H 28 H (units unknown) (unknown) (unknown) (no date) (unknown) (unknown) Respiratory Rate 34 H 34 H (units unknown) (unknown) (unknown) (no date) (unknown) (unknown) Respiratory Rate 34 H (units unknown) (unknown) (unknown) (no date) (unknown) (unknown) Respiratory Rate 35 H 31 H 37 H (units unknown) (unknown) (unknown) (no date) (unknown) (unknown) Respiratory Rate 35 H 33 H (units unknown) (unknown) (unknown) (no date) (unknown) (unknown) Respiratory Rate 35 H 36 H (units unknown) (unknown) (unknown) (no date) (unknown) (unknown) Respiratory Rate 35 H (units unknown) (unknown) (unknown) (no date) (unknown) (unknown) Respiratory Rate 36 H 35 H (units unknown) (unknown) (unknown) (no date) (unknown) (unknown) Respiratory Rate 36 H (units unknown) (unknown) (unknown) (no date) (unknown) (unknown) Respiratory Rate 37 H 39 H (units unknown) (unknown) (unknown) (no date) (unknown) (unknown) Respiratory Rate 37 H (units unknown) (unknown) (unknown) (no date) (unknown) (unknown) Respiratory Rate 38 H 37 H (units unknown) (unknown) (unknown) (no date) (unknown) (unknown) Respiratory Rate 38 H (units unknown) (unknown) (unknown) (no date) (unknown) (unknown) Respiratory Rate 39 H (units unknown) (unknown) (unknown) (no date) (unknown) (unknown) Respiratory Rate 40 H 39 H (units unknown) (unknown) (unknown) (no date) (unknown) (unknown) Respiratory Rate 43 H 44 H (units unknown) (unknown) (unknown) (no date) (unknown) (unknown) Respiratory Rate 47 H (units unknown) (unknown) (unknown) (no date) (unknown) (unknown) Respiratory Rate 51 H (units unknown) (unknown) (unknown) (no date) (unknown) (unknown) Review of Systems (units unknown) (unknown) (unknown) (no date) (unknown) (unknown) SARS-CoV-2 (PCR) Negative (units unknown) (unknown) (unknown) (no date) (unknown) (unknown) SARS-CoV-2 (PCR) (units unknown) (unknown) (unknown) (no date) (unknown) (unknown) Safety + Behavioral: (units unknown) (unknown) (unknown) (no date) (unknown) (unknown) Signed By: (units unknown) (unknown) (unknown) (no date) (unknown) (unknown) Skin: Warm dry and intact without rashes, ulcerations or petechiae. (units unknown) (unknown) (unknown) (no date) (unknown) (unknown) Smoking Status Never smoker (units unknown) (unknown) (unknown) (no date) (unknown) (unknown) Social History: (units unknown) (unknown) (unknown) (no date) (unknown) (unknown) Sodium 128 L (units unknown) (unknown) (unknown) (no date) (unknown) (unknown) Sodium (units unknown) (unknown) (unknown) (no date) (unknown) (unknown) Substance Use Type does not use (units unknown) (unknown) (unknown) (no date) (unknown) (unknown) Surgical History (units unknown) (unknown) (unknown) (no date) (unknown) (unknown) Temperature 100.9 F H (units unknown) (unknown) (unknown) (no date) (unknown) (unknown) Temperature 101 F H (units unknown) (unknown) (unknown) (no date) (unknown) (unknown) Temperature 101.1 F H (units unknown) (unknown) (unknown) (no date) (unknown) (unknown) Temperature (units unknown) (unknown) (unknown) (no date) (unknown) (unknown) Threatened By a Person (units unknown) (unknown) (unknown) (no date) (unknown) (unknown) Time Patient Seen: 20:27 (units unknown) (unknown) (unknown) (no date) (unknown) (unknown) Tobacco + Substance use: (units unknown) (unknown) (unknown) (no date) (unknown) (unknown) Total Bilirubin 1.2 (units unknown) (unknown) (unknown) (no date) (unknown) (unknown) Total Bilirubin (units unknown) (unknown) (unknown) (no date) (unknown) (unknown) Total Creatine Kinase 133 (units unknown) (unknown) (unknown) (no date) (unknown) (unknown) Total Creatine Kinase (units unknown) (unknown) (unknown) (no date) (unknown) (unknown) Total Protein 7.7 (units unknown) (unknown) (unknown) (no date) (unknown) (unknown) Total Protein (units unknown) (unknown) (unknown) (no date) (unknown) (unknown) Troponin I 0.016 (units unknown) (unknown) (unknown) (no date) (unknown) (unknown) Troponin I (units unknown) (unknown) (unknown) (no date) (unknown) (unknown) U-100 Insulin) (units unknown) (unknown) (unknown) (no date) (unknown) (unknown) VTE (units unknown) (unknown) (unknown) (no date) (unknown) (unknown) Vital Signs (units unknown) (unknown) (unknown) (no date) (unknown) (unknown) WBC 15.9 H (units unknown) (unknown) (unknown) (no date) (unknown) (unknown) WBC (units unknown) (unknown) (unknown) (no date) (unknown) (unknown) [Embedded Image Not Available] (units unknown) (unknown) (unknown) (no date) (unknown) (unknown) admitted to the ICU teleICU for atrial fibrillation with RVR, sepsis without (units unknown) (unknown) (unknown) (no date) (unknown) (unknown) afebrile temp 101?, hypertensive urgency BP 193/91, 183/84, tachycardic heart (units unknown) (unknown) (unknown) (no date) (unknown) (unknown) air-patient is stable in no distress sleeping heavily. Currently diltiazem drip (units unknown) (unknown) (unknown) (no date) (unknown) (unknown) alcohol intake frequency other (units unknown) (unknown) (unknown) (no date) (unknown) (unknown) alcohol intake never (units unknown) (unknown) (unknown) (no date) (unknown) (unknown) amputation. ? Patient presents with 5 days of fevers generally feeling unwell (units unknown) (unknown) (unknown) (no date) (unknown) (unknown) amputation. In ED was primary historian she is unsure if he is taking his (units unknown) (unknown) (unknown) (no date) (unknown) (unknown) are present in all 4 quadrants without guarding or rebound, no CVA tenderness. (units unknown) (unknown) (unknown) (no date) (unknown) (unknown) attitude thought context and judgment are appropriate for age. (units unknown) (unknown) (unknown) (no date) (unknown) (unknown) body aches, chills, cough, denies recent exposure to illness, abdominal pain, (units unknown) (unknown) (unknown) (no date) (unknown) (unknown) bruit, no cardiac pulsations present. (units unknown) (unknown) (unknown) (no date) (unknown) (unknown) cellulitis, acute, present on admission- stable (units unknown) (unknown) (unknown) (no date) (unknown) (unknown) changes, constipation, incontinence, melena, rashes, recent changes to (units unknown) (unknown) (unknown) (no date) (unknown) (unknown) clear and mucous membranes are moist. Neck is supple and symmetric, trachea is (units unknown) (unknown) (unknown) (no date) (unknown) (unknown) comparison to EKG from 12/18/2022, last echo 11/2022 EF 35-40%. Patient (units unknown) (unknown) (unknown) (no date) (unknown) (unknown) currently rate controlled (units unknown) (unknown) (unknown) (no date) (unknown) (unknown) dietary, lifestyle, exercise, and weight changes. (units unknown) (unknown) (unknown) (no date) (unknown) (unknown) difficulty with ambulation, recent falls, head injury, LOC, currently no fever, (units unknown) (unknown) (unknown) (no date) (unknown) (unknown) documented. (units unknown) (unknown) (unknown) (no date) (unknown) (unknown) erythematous warm to touch, cellulitis radial and pedal pulses are normal. (units unknown) (unknown) (unknown) (no date) (unknown) (unknown) extremely resistant to coming into the emergency department, is frequently (units unknown) (unknown) (unknown) (no date) (unknown) (unknown) fevers generally feeling unwell he states his heart rate has been fast, fever x (units unknown) (unknown) (unknown) (no date) (unknown) (unknown) for, FiO2 21. (units unknown) (unknown) (unknown) (no date) (unknown) (unknown) he states his heart rate has been fast, fever x 5 days, patient is a poor (units unknown) (unknown) (unknown) (no date) (unknown) (unknown) historian but verbalizes that he may have had increased swelling redness and (units unknown) (unknown) (unknown) (no date) (unknown) (unknown) household members spouse (units unknown) (unknown) (unknown) (no date) (unknown) (unknown) hyponatremia (units unknown) (unknown) (unknown) (no date) (unknown) (unknown) hypotension 102/59, 98/54, map 75, HR 86 Afib, RR 20, O2 saturation 94% on room (units unknown) (unknown) (unknown) (no date) (unknown) (unknown) increased swelling redness and pain of the left lower extremity for the past (units unknown) (unknown) (unknown) (no date) (unknown) (unknown) initial lactate 3.2, repeat 1. Sodium 128, Cl 96, BUN 24, bicarb 19, glucose (units unknown) (unknown) (unknown) (no date) (unknown) (unknown) insulin glargine 100 unit/mL 12 unit SUBCUT BEDTIME 05/11/20 01/15/23 History (units unknown) (unknown) (unknown) (no date) (unknown) (unknown) intact, no gross deficits noted of cranial nerves. (units unknown) (unknown) (unknown) (no date) (unknown) (unknown) lipase 367, (units unknown) (unknown) (unknown) (no date) (unknown) (unknown) lisinopril 5 mg tablet 5 mg PO DAILY 90 days #90 tabs 12/21/22 01/15/23 Rx (units unknown) (unknown) (unknown) (no date) (unknown) (unknown) medication, illness, injury, or trauma. (units unknown) (unknown) (unknown) (no date) (unknown) (unknown) medications regularly.? He was admitted for AFib RVR in November and was not (units unknown) (unknown) (unknown) (no date) (unknown) (unknown) metformin 500 mg tablet 500 mg PO BID 05/11/20 01/15/23 History (units unknown) (unknown) (unknown) (no date) (unknown) (unknown) metoprolol succinate 50 mg 50 mg PO BID 90 days #180 tabs 12/21/22 01/15/23 Rx (units unknown) (unknown) (unknown) (no date) (unknown) (unknown) midline, no adenopathy, no thyroid enlargement, nontender, no masses palpated. (units unknown) (unknown) (unknown) (no date) (unknown) (unknown) needed (units unknown) (unknown) (unknown) (no date) (unknown) (unknown) negative acute ST changes, depression in lead 1 and aVL, similar in comparison (units unknown) (unknown) (unknown) (no date) (unknown) (unknown) negative for, FiO2 21. WBC 15.9, newt 13,000, mono 1500 procalcitonin 0.5, (units unknown) (unknown) (unknown) (no date) (unknown) (unknown) negative, COVID influenza a/B/RSV are all negative. 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 Patient (units unknown) (unknown) (unknown) (no date) (unknown) (unknown) on admission-resolved (units unknown) (unknown) (unknown) (no date) (unknown) (unknown) pain of the left lower extremity for the past week, nausea and vomiting on way (units unknown) (unknown) (unknown) (no date) (unknown) (unknown) patient's obesity increases the difficulty and complexity of medical and/or (units unknown) (unknown) (unknown) (no date) (unknown) (unknown) peripheral neuropathy, chronic, present on admission-uncontrol led (units unknown) (unknown) (unknown) (no date) (unknown) (unknown) piperacillin [From Zosyn] Allergy Severe Uticaria Verified 05/11/20 22:50 (units unknown) (unknown) (unknown) (no date) (unknown) (unknown) placed patient on Zosyn with Benadryl to be given prior to dosage patient has (units unknown) (unknown) (unknown) (no date) (unknown) (unknown) rate of 169, negative acute ST changes, depression in lead 1 and aVL, similar in (units unknown) (unknown) (unknown) (no date) (unknown) (unknown) rates up to 209, tachypneic respiratory rates 30-50 in atrial fibrillation. (units unknown) (unknown) (unknown) (no date) (unknown) (unknown) retractions, or tachypneic labored breathing (units unknown) (unknown) (unknown) (no date) (unknown) (unknown) rivaroxaban 20 mg tablet (Xarelto) 20 mg PO QPM 05/11/20 01/15/23 History (units unknown) (unknown) (unknown) (no date) (unknown) (unknown) shock secondary to left lower extremity cellulitis, hyponatremia (units unknown) (unknown) (unknown) (no date) (unknown) (unknown) states his primary care is through the [facility].? In the ED patient was (units unknown) (unknown) (unknown) (no date) (unknown) (unknown) subcutaneous solution (Lantus (units unknown) (unknown) (unknown) (no date) (unknown) (unknown) such as morbidity and mortality as well as impaired wound healing. (units unknown) (unknown) (unknown) (no date) (unknown) (unknown) surgical interventions, management and increases the chances of poor outcome (units unknown) (unknown) (unknown) (no date) (unknown) (unknown) tablet,extended release 24 hr (units unknown) (unknown) (unknown) (no date) (unknown) (unknown) taking medications regularly at that time.? Patient presents with 5 days of (units unknown) (unknown) (unknown) (no date) (unknown) (unknown) tazobactam [From Zosyn] Allergy Severe Uticaria Verified 05/11/20 22:50 (units unknown) (unknown) (unknown) (no date) (unknown) (unknown) time. (units unknown) (unknown) (unknown) (no date) (unknown) (unknown) to EKG from 12/18/2022, last echo 11/2022 EF 35-40%. (units unknown) (unknown) (unknown) (no date) (unknown) (unknown) to EKG from 12/18/2022, (units unknown) (unknown) (unknown) (no date) (unknown) (unknown) to obesity as it relates to chronic illnesses:, and acute illness. The (units unknown) (unknown) (unknown) (no date) (unknown) (unknown) to the hospital. Patient admitted to the ICU teleICU for atrial fibrillation (units unknown) (unknown) (unknown) (no date) (unknown) (unknown) tolerated well and not had any reaction. (units unknown) (unknown) (unknown) (no date) (unknown) (unknown) ultrasound imaging may consider adding vancomycin, General surgery consult if (units unknown) (unknown) (unknown) (no date) (unknown) (unknown) urinary incontinence/retent ion, dysuria, frequency, urgency, hematuria, bowel (units unknown) (unknown) (unknown) (no date) (unknown) (unknown) vascular congestion. I personally reviewed all imaging and EKG. EKG: AFib RVR (units unknown) (unknown) (unknown) (no date) (unknown) (unknown) vision, difficulty swallowing, speech impairment, weakness, numbness, tingling, (units unknown) (unknown) (unknown) (no date) (unknown) (unknown) week, nausea and vomiting on way to the hospital. Patient was sent to be (units unknown) (unknown) (unknown) (no date) (unknown) (unknown) wheezes, rhonchi, or rales. (units unknown) (unknown) (unknown) (no date) (unknown) (unknown) with RVR, sepsis without shock secondary to left lower extremity cellulitis, (units unknown) (unknown) Result panel 438 (unknown) (no date) (unknown) (unknown) (no value) (units unknown) (unknown) (unknown) (no date) (unknown) (unknown) (past 8 hours): (units unknown) (unknown) (unknown) (no date) (unknown) (unknown) -1 L fluid bolus given on admit, followed by NS at 150 cc/hour (units unknown) (unknown) (unknown) (no date) (unknown) (unknown) -A1c has been ordered, A1c machine has been down (units unknown) (unknown) (unknown) (no date) (unknown) (unknown) -Admit 110/55, MAP 81, Afib, RR 20, O2 saturation 94% on room air (units unknown) (unknown) (unknown) (no date) (unknown) (unknown) -BMI 30.8 (units unknown) (unknown) (unknown) (no date) (unknown) (unknown) -Chest x-ray mild pulmonary vascular congestion. (units unknown) (unknown) (unknown) (no date) (unknown) (unknown) -ED : BP 193/91, 183/84, (units unknown) (unknown) (unknown) (no date) (unknown) (unknown) -ED :temp 101?, BP 193/91, 183/84, HR to 209, RR 30-50. (units unknown) (unknown) (unknown) (no date) (unknown) (unknown) -I personally reviewed all imaging and EKG. EKG: AFib RVR rate of 169, (units unknown) (unknown) (unknown) (no date) (unknown) (unknown) -In ED Hr up to 209 (units unknown) (unknown) (unknown) (no date) (unknown) (unknown) -Mag 1.2 ordered 2 g rider (units unknown) (unknown) (unknown) (no date) (unknown) (unknown) -SOFA:2, febrile, tachycardic, tachypneic (units unknown) (unknown) (unknown) (no date) (unknown) (unknown) -Sodium 128, Cl 96, BUN 24, bicarb 19, glucose 252 (units unknown) (unknown) (unknown) (no date) (unknown) (unknown) -Sodium 128, Cl 96, BUN 24, bicarb 19, glucose 252, Mag 1.2, PT 19.2, INR 1.7, (units unknown) (unknown) (unknown) (no date) (unknown) (unknown) -VBG: PH 7.44, pCO2 30.5, PO2 34, bicarb 21, TCO2 21, O2 sat 69%, BE negative (units unknown) (unknown) (unknown) (no date) (unknown) (unknown) -WBC 15.9, newt 13,000, mono 1500 procalcitonin 0.5, initial lactate 3.2, repeat (units unknown) (unknown) (unknown) (no date) (unknown) (unknown) -admit continued to have a low-grade fever 100.9, developed hypotension 102/59, (units unknown) (unknown) (unknown) (no date) (unknown) (unknown) -admit hypotension 102/59, 98/54, map 75 (units unknown) (unknown) (unknown) (no date) (unknown) (unknown) -based on results of trending inflammatory markers, response to IV Zosyn and (units unknown) (unknown) (unknown) (no date) (unknown) (unknown) -blood sugar checks a.c. HS, with sliding-scale coverage, continue Lantus (units unknown) (unknown) (unknown) (no date) (unknown) (unknown) -continue Xarelto (units unknown) (unknown) (unknown) (no date) (unknown) (unknown) -dietary consult ordered regarding nutritional education and information for (units unknown) (unknown) (unknown) (no date) (unknown) (unknown) -holding patient's metoprolol and lisinopril restarted morning (units unknown) (unknown) (unknown) (no date) (unknown) (unknown) -last echo 11/2022 EF 35-40%. 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 (units unknown) (unknown) (unknown) (no date) (unknown) (unknown) -patient admitted under diabetic protocol (units unknown) (unknown) (unknown) (no date) (unknown) (unknown) -patient had a history of urticaria with a previous dosage of Zosyn in 2019, (units unknown) (unknown) (unknown) (no date) (unknown) (unknown) -patient has been noncompliant with Cardiology follow-up and medications (units unknown) (unknown) (unknown) (no date) (unknown) (unknown) -patient has diabetes with a history of osteomyelitis, 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 (units unknown) (unknown) (unknown) (no date) (unknown) (unknown) -patient received vancomycin in ED (units unknown) (unknown) (unknown) (no date) (unknown) (unknown) -patient was placed on diltiazem drip in the ED-currently on 2.5 (units unknown) (unknown) (unknown) (no date) (unknown) (unknown) -respiratory panel negative (units unknown) (unknown) (unknown) (no date) (unknown) (unknown) -restart metoprolol 50 mg b.i.d in am (units unknown) (unknown) (unknown) (no date) (unknown) (unknown) -the patient is at much higher risk for medical and surgical complications due (units unknown) (unknown) (unknown) (no date) (unknown) (unknown) -will leave patient on drip overnight for rest (units unknown) (unknown) (unknown) (no date) (unknown) (unknown) [id number] (units unknown) (unknown) (unknown) (no date) (unknown) (unknown) 01/15/23 01/15/23 01/15/23 (units unknown) (unknown) (unknown) (no date) (unknown) (unknown) 01/15/23 01/15/23 (units unknown) (unknown) (unknown) (no date) (unknown) (unknown) 01/15/23 15:25 (units unknown) (unknown) (unknown) (no date) (unknown) (unknown) 01/15/23 (units unknown) (unknown) (unknown) (no date) (unknown) (unknown) 1. Atrial fibrillation with RVR, acute on chronic, present on admission (units unknown) (unknown) (unknown) (no date) (unknown) (unknown) 1. (units unknown) (unknown) (unknown) (no date) (unknown) (unknown) 15:25 15:25 15:25 (units unknown) (unknown) (unknown) (no date) (unknown) (unknown) 15:25 15:25 15:49 (units unknown) (unknown) (unknown) (no date) (unknown) (unknown) 15:26 01/15/23 (units unknown) (unknown) (unknown) (no date) (unknown) (unknown) 15:27 01/15/23 (units unknown) (unknown) (unknown) (no date) (unknown) (unknown) 15:27 (units unknown) (unknown) (unknown) (no date) (unknown) (unknown) 15:29 01/15/23 (units unknown) (unknown) (unknown) (no date) (unknown) (unknown) 15:30 01/15/23 (units unknown) (unknown) (unknown) (no date) (unknown) (unknown) 15:30 (units unknown) (unknown) (unknown) (no date) (unknown) (unknown) 15:35 01/15/23 (units unknown) (unknown) (unknown) (no date) (unknown) (unknown) 15:40 (units unknown) (unknown) (unknown) (no date) (unknown) (unknown) 15:45 01/15/23 (units unknown) (unknown) (unknown) (no date) (unknown) (unknown) 15:48 01/15/23 (units unknown) (unknown) (unknown) (no date) (unknown) (unknown) 15:48 (units unknown) (unknown) (unknown) (no date) (unknown) (unknown) 15:50 01/15/23 (units unknown) (unknown) (unknown) (no date) (unknown) (unknown) 15:55 01/15/23 (units unknown) (unknown) (unknown) (no date) (unknown) (unknown) 15:55 (units unknown) (unknown) (unknown) (no date) (unknown) (unknown) 16:00 01/15/23 (units unknown) (unknown) (unknown) (no date) (unknown) (unknown) 16:00 (units unknown) (unknown) (unknown) (no date) (unknown) (unknown) 16:05 01/15/23 (units unknown) (unknown) (unknown) (no date) (unknown) (unknown) 16:10 01/15/23 (units unknown) (unknown) (unknown) (no date) (unknown) (unknown) 16:10 (units unknown) (unknown) (unknown) (no date) (unknown) (unknown) 16:15 01/15/23 (units unknown) (unknown) (unknown) (no date) (unknown) (unknown) 16:15 (units unknown) (unknown) (unknown) (no date) (unknown) (unknown) 16:20 01/15/23 (units unknown) (unknown) (unknown) (no date) (unknown) (unknown) 16:25 01/15/23 (units unknown) (unknown) (unknown) (no date) (unknown) (unknown) 16:25 (units unknown) (unknown) (unknown) (no date) (unknown) (unknown) 16:30 01/15/23 (units unknown) (unknown) (unknown) (no date) (unknown) (unknown) 16:30 (units unknown) (unknown) (unknown) (no date) (unknown) (unknown) 16:35 01/15/23 (units unknown) (unknown) (unknown) (no date) (unknown) (unknown) 16:40 01/15/23 (units unknown) (unknown) (unknown) (no date) (unknown) (unknown) 16:45 01/15/23 (units unknown) (unknown) (unknown) (no date) (unknown) (unknown) 16:45 (units unknown) (unknown) (unknown) (no date) (unknown) (unknown) 16:50 01/15/23 (units unknown) (unknown) (unknown) (no date) (unknown) (unknown) 16:50 (units unknown) (unknown) (unknown) (no date) (unknown) (unknown) 16:51 (units unknown) (unknown) (unknown) (no date) (unknown) (unknown) 16:55 01/15/23 (units unknown) (unknown) (unknown) (no date) (unknown) (unknown) 17:00 01/15/23 (units unknown) (unknown) (unknown) (no date) (unknown) (unknown) 17:00 (units unknown) (unknown) (unknown) (no date) (unknown) (unknown) 17:05 01/15/23 (units unknown) (unknown) (unknown) (no date) (unknown) (unknown) 17:05 (units unknown) (unknown) (unknown) (no date) (unknown) (unknown) 17:10 01/15/23 (units unknown) (unknown) (unknown) (no date) (unknown) (unknown) 17:15 01/15/23 (units unknown) (unknown) (unknown) (no date) (unknown) (unknown) 17:15 (units unknown) (unknown) (unknown) (no date) (unknown) (unknown) 17:20 01/15/23 (units unknown) (unknown) (unknown) (no date) (unknown) (unknown) 17:20 (units unknown) (unknown) (unknown) (no date) (unknown) (unknown) 17:25 01/15/23 (units unknown) (unknown) (unknown) (no date) (unknown) (unknown) 17:30 01/15/23 (units unknown) (unknown) (unknown) (no date) (unknown) (unknown) 17:30 (units unknown) (unknown) (unknown) (no date) (unknown) (unknown) 17:35 01/15/23 (units unknown) (unknown) (unknown) (no date) (unknown) (unknown) 17:35 (units unknown) (unknown) (unknown) (no date) (unknown) (unknown) 17:40 01/15/23 (units unknown) (unknown) (unknown) (no date) (unknown) (unknown) 17:45 01/15/23 (units unknown) (unknown) (unknown) (no date) (unknown) (unknown) 17:45 (units unknown) (unknown) (unknown) (no date) (unknown) (unknown) 17:50 01/15/23 (units unknown) (unknown) (unknown) (no date) (unknown) (unknown) 17:50 (units unknown) (unknown) (unknown) (no date) (unknown) (unknown) 17:55 01/15/23 (units unknown) (unknown) (unknown) (no date) (unknown) (unknown) 17:55 (units unknown) (unknown) (unknown) (no date) (unknown) (unknown) 18:07 (units unknown) (unknown) (unknown) (no date) (unknown) (unknown) 18:11 01/15/23 (units unknown) (unknown) (unknown) (no date) (unknown) (unknown) 18:15 01/15/23 (units unknown) (unknown) (unknown) (no date) (unknown) (unknown) 18:15 19:10 (units unknown) (unknown) (unknown) (no date) (unknown) (unknown) 18:20 (units unknown) (unknown) (unknown) (no date) (unknown) (unknown) 18:25 01/15/23 (units unknown) (unknown) (unknown) (no date) (unknown) (unknown) 18:26 01/15/23 (units unknown) (unknown) (unknown) (no date) (unknown) (unknown) 18:30 01/15/23 (units unknown) (unknown) (unknown) (no date) (unknown) (unknown) 18:35 (units unknown) (unknown) (unknown) (no date) (unknown) (unknown) 18:40 01/15/23 (units unknown) (unknown) (unknown) (no date) (unknown) (unknown) 18:45 01/15/23 (units unknown) (unknown) (unknown) (no date) (unknown) (unknown) 18:50 (units unknown) (unknown) (unknown) (no date) (unknown) (unknown) 2. Sepsis without septic shock, metabolic, likely secondary to left leg (units unknown) (unknown) (unknown) (no date) (unknown) (unknown) 2.5. VBG: PH 7.44, pCO2 30.5, PO2 34, bicarb 21, TCO2 21, O2 sat 69%, BE (units unknown) (unknown) (unknown) (no date) (unknown) (unknown) 252, Mag 1.2, PT 19.2, INR 1.7, lipase 367, BNP 2810, sofa score:2, anion gap (units unknown) (unknown) (unknown) (no date) (unknown) (unknown) 3. Essential hypertension, with hypertensive urgency, acute on chronic, present (units unknown) (unknown) (unknown) (no date) (unknown) (unknown) 3rd toe amputation in 2019 (units unknown) (unknown) (unknown) (no date) (unknown) (unknown) 4. Type 2 diabetes insulin-dependent, with hyperglycemia, acute on chronic, with (units unknown) (unknown) (unknown) (no date) (unknown) (unknown) 5 days, patient is a poor historian but verbalizes that he may have had (units unknown) (unknown) (unknown) (no date) (unknown) (unknown) 5. Overweight, mild, acute on chronic, present on admission (units unknown) (unknown) (unknown) (no date) (unknown) (unknown) 98/54, map 75, HR 86 Afib, RR 20, O2 saturation 94% (units unknown) (unknown) (unknown) (no date) (unknown) (unknown) ALT 29 (units unknown) (unknown) (unknown) (no date) (unknown) (unknown) ALT (units unknown) (unknown) (unknown) (no date) (unknown) (unknown) APTT 33 (units unknown) (unknown) (unknown) (no date) (unknown) (unknown) APTT (units unknown) (unknown) (unknown) (no date) (unknown) (unknown) AST 32 (units unknown) (unknown) (unknown) (no date) (unknown) (unknown) AST (units unknown) (unknown) (unknown) (no date) (unknown) (unknown) Abdomen: Soft nontender, negative for organomegaly, or masses. Bowel sounds (units unknown) (unknown) (unknown) (no date) (unknown) (unknown) Afib (units unknown) (unknown) (unknown) (no date) (unknown) (unknown) Age/Sex: 67 / M (units unknown) (unknown) (unknown) (no date) (unknown) (unknown) Albumin 4.1 (units unknown) (unknown) (unknown) (no date) (unknown) (unknown) Albumin (units unknown) (unknown) (unknown) (no date) (unknown) (unknown) Albumin/Globulin Ratio 1.1 (units unknown) (unknown) (unknown) (no date) (unknown) (unknown) Albumin/Globulin Ratio (units unknown) (unknown) (unknown) (no date) (unknown) (unknown) Alkaline Phosphatase 97 (units unknown) (unknown) (unknown) (no date) (unknown) (unknown) Alkaline Phosphatase (units unknown) (unknown) (unknown) (no date) (unknown) (unknown) All 12 point systems reviewed with the patient and are negative except otherwise (units unknown) (unknown) (unknown) (no date) (unknown) (unknown) Allergies (units unknown) (unknown) (unknown) (no date) (unknown) (unknown) Allergy/AdvReac Type Severity Reaction Status Date / Time (units unknown) (unknown) (unknown) (no date) (unknown) (unknown) Assessment + Plan narrative: (units unknown) (unknown) (unknown) (no date) (unknown) (unknown) Assessment + Plan (units unknown) (unknown) (unknown) (no date) (unknown) (unknown) At the time of admit continued to have a low-grade fever 100.9, developed (units unknown) (unknown) (unknown) (no date) (unknown) (unknown) BUN 24 H (units unknown) (unknown) (unknown) (no date) (unknown) (unknown) BUN (units unknown) (unknown) (unknown) (no date) (unknown) (unknown) BUN/Creatinine Ratio 21.4 (units unknown) (unknown) (unknown) (no date) (unknown) (unknown) BUN/Creatinine Ratio (units unknown) (unknown) (unknown) (no date) (unknown) (unknown) Baso # (Auto) 0 (units unknown) (unknown) (unknown) (no date) (unknown) (unknown) Baso # (Auto) (units unknown) (unknown) (unknown) (no date) (unknown) (unknown) Baso % (Auto) 0.3 (units unknown) (unknown) (unknown) (no date) (unknown) (unknown) Baso % (Auto) (units unknown) (unknown) (unknown) (no date) (unknown) (unknown) Been Physically Hurt or No (units unknown) (unknown) (unknown) (no date) (unknown) (unknown) Blood Pressure 102/59 L (units unknown) (unknown) (unknown) (no date) (unknown) (unknown) Blood Pressure 105/57 L (units unknown) (unknown) (unknown) (no date) (unknown) (unknown) Blood Pressure 106/58 L (units unknown) (unknown) (unknown) (no date) (unknown) (unknown) Blood Pressure 107/53 L (units unknown) (unknown) (unknown) (no date) (unknown) (unknown) Blood Pressure 108/58 L 104/54 L (units unknown) (unknown) (unknown) (no date) (unknown) (unknown) Blood Pressure 113/55 L 114/58 L (units unknown) (unknown) (unknown) (no date) (unknown) (unknown) Blood Pressure 113/58 L 108/59 L (units unknown) (unknown) (unknown) (no date) (unknown) (unknown) Blood Pressure 114/56 L 96/54 L (units unknown) (unknown) (unknown) (no date) (unknown) (unknown) Blood Pressure 115/58 L (units unknown) (unknown) (unknown) (no date) (unknown) (unknown) Blood Pressure 119/66 130/56 L (units unknown) (unknown) (unknown) (no date) (unknown) (unknown) Blood Pressure 120/56 L 126/61 (units unknown) (unknown) (unknown) (no date) (unknown) (unknown) Blood Pressure 122/57 L (units unknown) (unknown) (unknown) (no date) (unknown) (unknown) Blood Pressure 123/72 117/56 L (units unknown) (unknown) (unknown) (no date) (unknown) (unknown) Blood Pressure 125/58 L (units unknown) (unknown) (unknown) (no date) (unknown) (unknown) Blood Pressure 125/63 (units unknown) (unknown) (unknown) (no date) (unknown) (unknown) Blood Pressure 126/58 L (units unknown) (unknown) (unknown) (no date) (unknown) (unknown) Blood Pressure 127/57 L (units unknown) (unknown) (unknown) (no date) (unknown) (unknown) Blood Pressure 143/63 H (units unknown) (unknown) (unknown) (no date) (unknown) (unknown) Blood Pressure 156/60 H 122/58 L (units unknown) (unknown) (unknown) (no date) (unknown) (unknown) Blood Pressure 172/92 H (units unknown) (unknown) (unknown) (no date) (unknown) (unknown) Blood Pressure 183/84 H 140/69 (units unknown) (unknown) (unknown) (no date) (unknown) (unknown) Blood Pressure 193/91 H (units unknown) (unknown) (unknown) (no date) (unknown) (unknown) Blood Pressure 98/54 L (units unknown) (unknown) (unknown) (no date) (unknown) (unknown) Blood Pressure (units unknown) (unknown) (unknown) (no date) (unknown) (unknown) CK-MB (CK-2) 1.09 (units unknown) (unknown) (unknown) (no date) (unknown) (unknown) CK-MB (CK-2) Rel Index 0.8 L (units unknown) (unknown) (unknown) (no date) (unknown) (unknown) CK-MB (CK-2) Rel Index (units unknown) (unknown) (unknown) (no date) (unknown) (unknown) CK-MB (CK-2) (units unknown) (unknown) (unknown) (no date) (unknown) (unknown) COVID negative. (units unknown) (unknown) (unknown) (no date) (unknown) (unknown) Calcium 8.9 (units unknown) (unknown) (unknown) (no date) (unknown) (unknown) Calcium (units unknown) (unknown) (unknown) (no date) (unknown) (unknown) Carbon Dioxide 19 L (units unknown) (unknown) (unknown) (no date) (unknown) (unknown) Carbon Dioxide (units unknown) (unknown) (unknown) (no date) (unknown) (unknown) Cardio: regular rate and rhythm without murmur, rubs, or gallops, no carotid (units unknown) (unknown) (unknown) (no date) (unknown) (unknown) Chest: Normal AP diameter and contour without kyphoscoliosis, no nasal flaring, (units unknown) (unknown) (unknown) (no date) (unknown) (unknown) Chief complaint: vomiting/shaking/fe trell (units unknown) (unknown) (unknown) (no date) (unknown) (unknown) Chloride 96 L (units unknown) (unknown) (unknown) (no date) (unknown) (unknown) Chloride (units unknown) (unknown) (unknown) (no date) (unknown) (unknown) Code status is full code. (units unknown) (unknown) (unknown) (no date) (unknown) (unknown) Creatinine 1.12 (units unknown) (unknown) (unknown) (no date) (unknown) (unknown) Creatinine (units unknown) (unknown) (unknown) (no date) (unknown) (unknown) : 1955 Acct:[id number] (units unknown) (unknown) (unknown) (no date) (unknown) (unknown) DVT prophylaxis with Xarelto. (units unknown) (unknown) (unknown) (no date) (unknown) (unknown) Date Patient Seen: 01/15/23 (units unknown) (unknown) (unknown) (no date) (unknown) (unknown) Date of Service: 01/15/23 (units unknown) (unknown) (unknown) (no date) (unknown) (unknown) Deep Vein Thrombosis/Pulmonar y Embolism Present on Admission: No (units unknown) (unknown) (unknown) (no date) (unknown) (unknown) Diabetes mellitus (units unknown) (unknown) (unknown) (no date) (unknown) (unknown) Diabetes (units unknown) (unknown) (unknown) (no date) (unknown) (unknown) Disposition: Patient admitted to the ICU expected length of stay greater than 2 (units unknown) (unknown) (unknown) (no date) (unknown) (unknown) Environment (units unknown) (unknown) (unknown) (no date) (unknown) (unknown) Eos # (Auto) 0 (units unknown) (unknown) (unknown) (no date) (unknown) (unknown) Eos # (Auto) (units unknown) (unknown) (unknown) (no date) (unknown) (unknown) Eos % (Auto) 0.0 L (units unknown) (unknown) (unknown) (no date) (unknown) (unknown) Eos % (Auto) (units unknown) (unknown) (unknown) (no date) (unknown) (unknown) Estimated GFR > 60 (units unknown) (unknown) (unknown) (no date) (unknown) (unknown) Estimated GFR (units unknown) (unknown) (unknown) (no date) (unknown) (unknown) Exam Narrative: (units unknown) (unknown) (unknown) (no date) (unknown) (unknown) Exam (units unknown) (unknown) (unknown) (no date) (unknown) (unknown) Family + Social History (units unknown) (unknown) (unknown) (no date) (unknown) (unknown) Family History (units unknown) (unknown) (unknown) (no date) (unknown) (unknown) Father Smoker (units unknown) (unknown) (unknown) (no date) (unknown) (unknown) Feels Safe in Current Yes (units unknown) (unknown) (unknown) (no date) (unknown) (unknown) General: Patient is a well-developed, well-nourished in no distress at this (units unknown) (unknown) (unknown) (no date) (unknown) (unknown) Globulin 3.6 (units unknown) (unknown) (unknown) (no date) (unknown) (unknown) Globulin (units unknown) (unknown) (unknown) (no date) (unknown) (unknown) Glucose 252 H (units unknown) (unknown) (unknown) (no date) (unknown) (unknown) Glucose (units unknown) (unknown) (unknown) (no date) (unknown) (unknown) HEENT: Normocephalic, atraumatic, extraocular muscles intact, oral pharynx is (units unknown) (unknown) (unknown) (no date) (unknown) (unknown) Hct 43.2 (units unknown) (unknown) (unknown) (no date) (unknown) (unknown) Hct (units unknown) (unknown) (unknown) (no date) (unknown) (unknown) Heart attack (units unknown) (unknown) (unknown) (no date) (unknown) (unknown) Hgb 14.6 (units unknown) (unknown) (unknown) (no date) (unknown) (unknown) Hgb (units unknown) (unknown) (unknown) (no date) (unknown) (unknown) History + Physical Report (units unknown) (unknown) (unknown) (no date) (unknown) (unknown) History of Present Illness (units unknown) (unknown) (unknown) (no date) (unknown) (unknown) History of hernia repair (units unknown) (unknown) (unknown) (no date) (unknown) (unknown) History of neck surgery (units unknown) (unknown) (unknown) (no date) (unknown) (unknown) Home Medications and Allergies (units unknown) (unknown) (unknown) (no date) (unknown) (unknown) Home Medications (units unknown) (unknown) (unknown) (no date) (unknown) (unknown) Hyperlipidemia (units unknown) (unknown) (unknown) (no date) (unknown) (unknown) Hypertension (units unknown) (unknown) (unknown) (no date) (unknown) (unknown) I confirmed that the patient's advanced care plan is present, Code status is (units unknown) (unknown) (unknown) (no date) (unknown) (unknown) I have personally reviewed patient's chart notes from PCP, specialists, (units unknown) (unknown) (unknown) (no date) (unknown) (unknown) I have utilized all available immediate resources to obtain, update, or review (units unknown) (unknown) (unknown) (no date) (unknown) (unknown) INR 1.7 H (units unknown) (unknown) (unknown) (no date) (unknown) (unknown) INR (units unknown) (unknown) (unknown) (no date) (unknown) (unknown) Influenza A (RT-PCR) Flu a negative (units unknown) (unknown) (unknown) (no date) (unknown) (unknown) Influenza A (RT-PCR) (units unknown) (unknown) (unknown) (no date) (unknown) (unknown) Influenza B (RT-PCR) Flu b negative (units unknown) (unknown) (unknown) (no date) (unknown) (unknown) Influenza B (RT-PCR) (units unknown) (unknown) (unknown) (no date) (unknown) (unknown) [address] [address] (units unknown) (unknown) (unknown) (no date) (unknown) (unknown) Arvind Brock is a 67yo M with PMH of A-fib on [place] [id number] with peripheral (units unknown) (unknown) (unknown) (no date) (unknown) (unknown) Laboratory Results - last 24 hr (units unknown) (unknown) (unknown) (no date) (unknown) (unknown) Labs (units unknown) (unknown) (unknown) (no date) (unknown) (unknown) Labs: (units unknown) (unknown) (unknown) (no date) (unknown) (unknown) Lactate 1.0 (units unknown) (unknown) (unknown) (no date) (unknown) (unknown) Lactate 3.2 H (units unknown) (unknown) (unknown) (no date) (unknown) (unknown) Lactate (units unknown) (unknown) (unknown) (no date) (unknown) (unknown) Lipase 367 H (units unknown) (unknown) (unknown) (no date) (unknown) (unknown) Lipase (units unknown) (unknown) (unknown) (no date) (unknown) (unknown) Lungs: Auscultation of all lung neff are clear without adventitious sounds, (units unknown) (unknown) (unknown) (no date) (unknown) (unknown) Lymph # (Auto) 1400 (units unknown) (unknown) (unknown) (no date) (unknown) (unknown) Lymph # (Auto) (units unknown) (unknown) (unknown) (no date) (unknown) (unknown) Lymph % (Auto) 9.0 L (units unknown) (unknown) (unknown) (no date) (unknown) (unknown) Lymph % (Auto) (units unknown) (unknown) (unknown) (no date) (unknown) (unknown) MCH 29.3 (units unknown) (unknown) (unknown) (no date) (unknown) (unknown) MCH (units unknown) (unknown) (unknown) (no date) (unknown) (unknown) MCHC 33.8 (units unknown) (unknown) (unknown) (no date) (unknown) (unknown) MCHC (units unknown) (unknown) (unknown) (no date) (unknown) (unknown) MCV 86.5 (units unknown) (unknown) (unknown) (no date) (unknown) (unknown) MCV (units unknown) (unknown) (unknown) (no date) (unknown) (unknown) Magnesium 1.2 L (units unknown) (unknown) (unknown) (no date) (unknown) (unknown) Magnesium (units unknown) (unknown) (unknown) (no date) (unknown) (unknown) Medical History (units unknown) (unknown) (unknown) (no date) (unknown) (unknown) Medication Instructions Recorded Confirmed Type (units unknown) (unknown) (unknown) (no date) (unknown) (unknown) Meds (units unknown) (unknown) (unknown) (no date) (unknown) (unknown) [place] # (Auto) 1500 H (units unknown) (unknown) (unknown) (no date) (unknown) (unknown) [place] # (Auto) (units unknown) (unknown) (unknown) (no date) (unknown) (unknown) [place] % (Auto) 9.2 (units unknown) (unknown) (unknown) (no date) (unknown) (unknown) [place] % (Auto) (units unknown) (unknown) (unknown) (no date) (unknown) (unknown) Mother No significant medical problems (units unknown) (unknown) (unknown) (no date) (unknown) (unknown) Musculoskeletal: Bilateral lower extremity edema, left greater than right, left (units unknown) (unknown) (unknown) (no date) (unknown) (unknown) NT-Pro-B Natriuret Pep 2810 H (units unknown) (unknown) (unknown) (no date) (unknown) (unknown) NT-Pro-B Natriuret Pep (units unknown) (unknown) (unknown) (no date) (unknown) (unknown) Narrative (units unknown) (unknown) (unknown) (no date) (unknown) (unknown) Narrative: (units unknown) (unknown) (unknown) (no date) (unknown) (unknown) Nasal Screen MRSA (PCR) Not detected (units unknown) (unknown) (unknown) (no date) (unknown) (unknown) Nasal Screen MRSA (PCR) (units unknown) (unknown) (unknown) (no date) (unknown) (unknown) Negative for JVD (units unknown) (unknown) (unknown) (no date) (unknown) (unknown) Neuro: Alert and orientated x3, moves all extremities, sensation to touch (units unknown) (unknown) (unknown) (no date) (unknown) (unknown) Neuropathy of both feet (units unknown) (unknown) (unknown) (no date) (unknown) (unknown) Neut # (Auto) 23540 H (units unknown) (unknown) (unknown) (no date) (unknown) (unknown) Neut # (Auto) (units unknown) (unknown) (unknown) (no date) (unknown) (unknown) Neut % (Auto) 81.5 H (units unknown) (unknown) (unknown) (no date) (unknown) (unknown) Neut % (Auto) (units unknown) (unknown) (unknown) (no date) (unknown) (unknown) Objective (units unknown) (unknown) (unknown) (no date) (unknown) (unknown) On admit patient denies chest pain, shortness in breath, headache, changes in (units unknown) (unknown) (unknown) (no date) (unknown) (unknown) Oxygen Delivery Method Room Air (units unknown) (unknown) (unknown) (no date) (unknown) (unknown) Oxygen Delivery Method (units unknown) (unknown) (unknown) (no date) (unknown) (unknown) Oxygen Flow Rate 0 (units unknown) (unknown) (unknown) (no date) (unknown) (unknown) Oxygen Flow Rate (units unknown) (unknown) (unknown) (no date) (unknown) (unknown) PT 19.2 H (units unknown) (unknown) (unknown) (no date) (unknown) (unknown) PT (units unknown) (unknown) (unknown) (no date) (unknown) (unknown) Patient History (units unknown) (unknown) (unknown) (no date) (unknown) (unknown) Patient was given an initial dose of diltiazem and then placed on a Dilt drip. (units unknown) (unknown) (unknown) (no date) (unknown) (unknown) Patient: Arvind Brock MR#: [id number] (units unknown) (unknown) (unknown) (no date) (unknown) (unknown) Plt Count 162 (units unknown) (unknown) (unknown) (no date) (unknown) (unknown) Plt Count (units unknown) (unknown) (unknown) (no date) (unknown) (unknown) Potassium 4.5 (units unknown) (unknown) (unknown) (no date) (unknown) (unknown) Potassium (units unknown) (unknown) (unknown) (no date) (unknown) (unknown) Prior Living Arrangements House (units unknown) (unknown) (unknown) (no date) (unknown) (unknown) Procalcitonin 0.50 (units unknown) (unknown) (unknown) (no date) (unknown) (unknown) Procalcitonin (units unknown) (unknown) (unknown) (no date) (unknown) (unknown) Provider: Piper Brannon (units unknown) (unknown) (unknown) (no date) (unknown) (unknown) Proxy is Almaz Brock. (units unknown) (unknown) (unknown) (no date) (unknown) (unknown) Psych: Patient has a well-kept appearance, appropriate affect, mental status (units unknown) (unknown) (unknown) (no date) (unknown) (unknown) Pulse Oximetry 93 93 (units unknown) (unknown) (unknown) (no date) (unknown) (unknown) Pulse Oximetry 93 94 (units unknown) (unknown) (unknown) (no date) (unknown) (unknown) Pulse Oximetry 93 (units unknown) (unknown) (unknown) (no date) (unknown) (unknown) Pulse Oximetry 94 94 (units unknown) (unknown) (unknown) (no date) (unknown) (unknown) Pulse Oximetry 94 95 95 (units unknown) (unknown) (unknown) (no date) (unknown) (unknown) Pulse Oximetry 94 95 (units unknown) (unknown) (unknown) (no date) (unknown) (unknown) Pulse Oximetry 94 (units unknown) (unknown) (unknown) (no date) (unknown) (unknown) Pulse Oximetry 95 91 (units unknown) (unknown) (unknown) (no date) (unknown) (unknown) Pulse Oximetry 95 94 94 (units unknown) (unknown) (unknown) (no date) (unknown) (unknown) Pulse Oximetry 95 95 (units unknown) (unknown) (unknown) (no date) (unknown) (unknown) Pulse Oximetry 95 96 (units unknown) (unknown) (unknown) (no date) (unknown) (unknown) Pulse Oximetry 95 (units unknown) (unknown) (unknown) (no date) (unknown) (unknown) Pulse Oximetry 96 (units unknown) (unknown) (unknown) (no date) (unknown) (unknown) Pulse Oximetry 97 98 (units unknown) (unknown) (unknown) (no date) (unknown) (unknown) Pulse Oximetry 99 95 93 (units unknown) (unknown) (unknown) (no date) (unknown) (unknown) Pulse Oximetry 99 (units unknown) (unknown) (unknown) (no date) (unknown) (unknown) Pulse Rate 100 H 104 H (units unknown) (unknown) (unknown) (no date) (unknown) (unknown) Pulse Rate 101 H (units unknown) (unknown) (unknown) (no date) (unknown) (unknown) Pulse Rate 102 H 105 H (units unknown) (unknown) (unknown) (no date) (unknown) (unknown) Pulse Rate 102 H (units unknown) (unknown) (unknown) (no date) (unknown) (unknown) Pulse Rate 104 H 108 H (units unknown) (unknown) (unknown) (no date) (unknown) (unknown) Pulse Rate 104 H (units unknown) (unknown) (unknown) (no date) (unknown) (unknown) Pulse Rate 106 H 110 H (units unknown) (unknown) (unknown) (no date) (unknown) (unknown) Pulse Rate 106 H (units unknown) (unknown) (unknown) (no date) (unknown) (unknown) Pulse Rate 107 H 107 H (units unknown) (unknown) (unknown) (no date) (unknown) (unknown) Pulse Rate 108 H 105 H (units unknown) (unknown) (unknown) (no date) (unknown) (unknown) Pulse Rate 108 H (units unknown) (unknown) (unknown) (no date) (unknown) (unknown) Pulse Rate 109 H (units unknown) (unknown) (unknown) (no date) (unknown) (unknown) Pulse Rate 110 H 109 H (units unknown) (unknown) (unknown) (no date) (unknown) (unknown) Pulse Rate 112 H (units unknown) (unknown) (unknown) (no date) (unknown) (unknown) Pulse Rate 115 H 111 H (units unknown) (unknown) (unknown) (no date) (unknown) (unknown) Pulse Rate 116 H (units unknown) (unknown) (unknown) (no date) (unknown) (unknown) Pulse Rate 123 H 118 H (units unknown) (unknown) (unknown) (no date) (unknown) (unknown) Pulse Rate 135 H (units unknown) (unknown) (unknown) (no date) (unknown) (unknown) Pulse Rate 138 H 126 H (units unknown) (unknown) (unknown) (no date) (unknown) (unknown) Pulse Rate 209 H 172 H 172 H (units unknown) (unknown) (unknown) (no date) (unknown) (unknown) Pulse Rate 92 H 100 H 95 H (units unknown) (unknown) (unknown) (no date) (unknown) (unknown) Pulse Rate 93 H 89 90 (units unknown) (unknown) (unknown) (no date) (unknown) (unknown) Pulse Rate 95 H 86 86 (units unknown) (unknown) (unknown) (no date) (unknown) (unknown) Quality (units unknown) (unknown) (unknown) (no date) (unknown) (unknown) RBC 5.00 (units unknown) (unknown) (unknown) (no date) (unknown) (unknown) RBC (units unknown) (unknown) (unknown) (no date) (unknown) (unknown) RDW 15.3 H (units unknown) (unknown) (unknown) (no date) (unknown) (unknown) RDW (units unknown) (unknown) (unknown) (no date) (unknown) (unknown) RSV (PCR) Negative (units unknown) (unknown) (unknown) (no date) (unknown) (unknown) RSV (PCR) (units unknown) (unknown) (unknown) (no date) (unknown) (unknown) Respiratory Rate 30 H 51 H 53 H (units unknown) (unknown) (unknown) (no date) (unknown) (unknown) Respiratory Rate 30 H (units unknown) (unknown) (unknown) (no date) (unknown) (unknown) Respiratory Rate 31 H 32 H (units unknown) (unknown) (unknown) (no date) (unknown) (unknown) Respiratory Rate 31 H 34 H (units unknown) (unknown) (unknown) (no date) (unknown) (unknown) Respiratory Rate 31 H (units unknown) (unknown) (unknown) (no date) (unknown) (unknown) Respiratory Rate 32 H (units unknown) (unknown) (unknown) (no date) (unknown) (unknown) Respiratory Rate 34 H 32 H 28 H (units unknown) (unknown) (unknown) (no date) (unknown) (unknown) Respiratory Rate 34 H 34 H (units unknown) (unknown) (unknown) (no date) (unknown) (unknown) Respiratory Rate 34 H (units unknown) (unknown) (unknown) (no date) (unknown) (unknown) Respiratory Rate 35 H 31 H 37 H (units unknown) (unknown) (unknown) (no date) (unknown) (unknown) Respiratory Rate 35 H 33 H (units unknown) (unknown) (unknown) (no date) (unknown) (unknown) Respiratory Rate 35 H 36 H (units unknown) (unknown) (unknown) (no date) (unknown) (unknown) Respiratory Rate 35 H (units unknown) (unknown) (unknown) (no date) (unknown) (unknown) Respiratory Rate 36 H 35 H (units unknown) (unknown) (unknown) (no date) (unknown) (unknown) Respiratory Rate 36 H (units unknown) (unknown) (unknown) (no date) (unknown) (unknown) Respiratory Rate 37 H 39 H (units unknown) (unknown) (unknown) (no date) (unknown) (unknown) Respiratory Rate 37 H (units unknown) (unknown) (unknown) (no date) (unknown) (unknown) Respiratory Rate 38 H 37 H (units unknown) (unknown) (unknown) (no date) (unknown) (unknown) Respiratory Rate 38 H (units unknown) (unknown) (unknown) (no date) (unknown) (unknown) Respiratory Rate 39 H (units unknown) (unknown) (unknown) (no date) (unknown) (unknown) Respiratory Rate 40 H 39 H (units unknown) (unknown) (unknown) (no date) (unknown) (unknown) Respiratory Rate 43 H 44 H (units unknown) (unknown) (unknown) (no date) (unknown) (unknown) Respiratory Rate 47 H (units unknown) (unknown) (unknown) (no date) (unknown) (unknown) Respiratory Rate 51 H (units unknown) (unknown) (unknown) (no date) (unknown) (unknown) Review of Systems (units unknown) (unknown) (unknown) (no date) (unknown) (unknown) SARS-CoV-2 (PCR) Negative (units unknown) (unknown) (unknown) (no date) (unknown) (unknown) SARS-CoV-2 (PCR) (units unknown) (unknown) (unknown) (no date) (unknown) (unknown) Safety + Behavioral: (units unknown) (unknown) (unknown) (no date) (unknown) (unknown) Signed By: (units unknown) (unknown) (unknown) (no date) (unknown) (unknown) Skin: Warm dry and intact without rashes, ulcerations or petechiae. (units unknown) (unknown) (unknown) (no date) (unknown) (unknown) Smoking Status Never smoker (units unknown) (unknown) (unknown) (no date) (unknown) (unknown) Social History: (units unknown) (unknown) (unknown) (no date) (unknown) (unknown) Sodium 128 L (units unknown) (unknown) (unknown) (no date) (unknown) (unknown) Sodium (units unknown) (unknown) (unknown) (no date) (unknown) (unknown) Substance Use Type does not use (units unknown) (unknown) (unknown) (no date) (unknown) (unknown) Surgical History (units unknown) (unknown) (unknown) (no date) (unknown) (unknown) Temperature 100.9 F H (units unknown) (unknown) (unknown) (no date) (unknown) (unknown) Temperature 101 F H (units unknown) (unknown) (unknown) (no date) (unknown) (unknown) Temperature 101.1 F H (units unknown) (unknown) (unknown) (no date) (unknown) (unknown) Temperature (units unknown) (unknown) (unknown) (no date) (unknown) (unknown) Threatened By a Person (units unknown) (unknown) (unknown) (no date) (unknown) (unknown) Time Patient Seen: 20:27 (units unknown) (unknown) (unknown) (no date) (unknown) (unknown) Tobacco + Substance use: (units unknown) (unknown) (unknown) (no date) (unknown) (unknown) Total Bilirubin 1.2 (units unknown) (unknown) (unknown) (no date) (unknown) (unknown) Total Bilirubin (units unknown) (unknown) (unknown) (no date) (unknown) (unknown) Total Creatine Kinase 133 (units unknown) (unknown) (unknown) (no date) (unknown) (unknown) Total Creatine Kinase (units unknown) (unknown) (unknown) (no date) (unknown) (unknown) Total Protein 7.7 (units unknown) (unknown) (unknown) (no date) (unknown) (unknown) Total Protein (units unknown) (unknown) (unknown) (no date) (unknown) (unknown) Troponin I 0.016 (units unknown) (unknown) (unknown) (no date) (unknown) (unknown) Troponin I (units unknown) (unknown) (unknown) (no date) (unknown) (unknown) U-100 Insulin) (units unknown) (unknown) (unknown) (no date) (unknown) (unknown) VTE (units unknown) (unknown) (unknown) (no date) (unknown) (unknown) Vital Signs (units unknown) (unknown) (unknown) (no date) (unknown) (unknown) WBC 15.9 H (units unknown) (unknown) (unknown) (no date) (unknown) (unknown) WBC (units unknown) (unknown) (unknown) (no date) (unknown) (unknown) [Embedded Image Not Available] (units unknown) (unknown) (unknown) (no date) (unknown) (unknown) admitted to the ICU teleICU for atrial fibrillation with RVR, sepsis without (units unknown) (unknown) (unknown) (no date) (unknown) (unknown) afebrile temp 101?, hypertensive urgency BP 193/91, 183/84, tachycardic heart (units unknown) (unknown) (unknown) (no date) (unknown) (unknown) air-patient is stable in no distress sleeping heavily. Currently diltiazem drip (units unknown) (unknown) (unknown) (no date) (unknown) (unknown) alcohol intake frequency other (units unknown) (unknown) (unknown) (no date) (unknown) (unknown) alcohol intake never (units unknown) (unknown) (unknown) (no date) (unknown) (unknown) amputation. ? Patient presents with 5 days of fevers generally feeling unwell (units unknown) (unknown) (unknown) (no date) (unknown) (unknown) amputation. In ED was primary historian she is unsure if he is taking his (units unknown) (unknown) (unknown) (no date) (unknown) (unknown) are present in all 4 quadrants without guarding or rebound, no CVA tenderness. (units unknown) (unknown) (unknown) (no date) (unknown) (unknown) attitude thought context and judgment are appropriate for age. (units unknown) (unknown) (unknown) (no date) (unknown) (unknown) body aches, chills, cough, denies recent exposure to illness, abdominal pain, (units unknown) (unknown) (unknown) (no date) (unknown) (unknown) bruit, no cardiac pulsations present. (units unknown) (unknown) (unknown) (no date) (unknown) (unknown) cellulitis, acute, present on admission- stable (units unknown) (unknown) (unknown) (no date) (unknown) (unknown) changes, constipation, incontinence, melena, rashes, recent changes to (units unknown) (unknown) (unknown) (no date) (unknown) (unknown) clear and mucous membranes are moist. Neck is supple and symmetric, trachea is (units unknown) (unknown) (unknown) (no date) (unknown) (unknown) comparison to EKG from 12/18/2022, last echo 11/2022 EF 35-40%. Patient (units unknown) (unknown) (unknown) (no date) (unknown) (unknown) currently rate controlled (units unknown) (unknown) (unknown) (no date) (unknown) (unknown) diagnostic imaging, and laboratory results. (units unknown) (unknown) (unknown) (no date) (unknown) (unknown) dietary, lifestyle, exercise, and weight changes. (units unknown) (unknown) (unknown) (no date) (unknown) (unknown) difficulty with ambulation, recent falls, head injury, LOC, currently no fever, (units unknown) (unknown) (unknown) (no date) (unknown) (unknown) documented and/or surrogate decision maker is listed in the patient's medical (units unknown) (unknown) (unknown) (no date) (unknown) (unknown) documented. (units unknown) (unknown) (unknown) (no date) (unknown) (unknown) erythematous warm to touch, cellulitis radial and pedal pulses are normal. (units unknown) (unknown) (unknown) (no date) (unknown) (unknown) extremely resistant to coming into the emergency department, is frequently (units unknown) (unknown) (unknown) (no date) (unknown) (unknown) fevers generally feeling unwell he states his heart rate has been fast, fever x (units unknown) (unknown) (unknown) (no date) (unknown) (unknown) for, FiO2 21. (units unknown) (unknown) (unknown) (no date) (unknown) (unknown) he states his heart rate has been fast, fever x 5 days, patient is a poor (units unknown) (unknown) (unknown) (no date) (unknown) (unknown) historian but verbalizes that he may have had increased swelling redness and (units unknown) (unknown) (unknown) (no date) (unknown) (unknown) household members spouse (units unknown) (unknown) (unknown) (no date) (unknown) (unknown) hyponatremia (units unknown) (unknown) (unknown) (no date) (unknown) (unknown) hypotension 102/59, 98/54, map 75, HR 86 Afib, RR 20, O2 saturation 94% on room (units unknown) (unknown) (unknown) (no date) (unknown) (unknown) increased swelling redness and pain of the left lower extremity for the past (units unknown) (unknown) (unknown) (no date) (unknown) (unknown) initial lactate 3.2, repeat 1. Sodium 128, Cl 96, BUN 24, bicarb 19, glucose (units unknown) (unknown) (unknown) (no date) (unknown) (unknown) insulin glargine 100 unit/mL 12 unit SUBCUT BEDTIME 05/11/20 01/15/23 History (units unknown) (unknown) (unknown) (no date) (unknown) (unknown) intact, no gross deficits noted of cranial nerves. (units unknown) (unknown) (unknown) (no date) (unknown) (unknown) lipase 367, (units unknown) (unknown) (unknown) (no date) (unknown) (unknown) lisinopril 5 mg tablet 5 mg PO DAILY 90 days #90 tabs 12/21/22 01/15/23 Rx (units unknown) (unknown) (unknown) (no date) (unknown) (unknown) lower extremity cellulitis possibility of osteomyelitis, and atrial fibrillation (units unknown) (unknown) (unknown) (no date) (unknown) (unknown) medication, illness, injury, or trauma. (units unknown) (unknown) (unknown) (no date) (unknown) (unknown) medications regularly.? He was admitted for AFib RVR in November and was not (units unknown) (unknown) (unknown) (no date) (unknown) (unknown) metformin 500 mg tablet 500 mg PO BID 05/11/20 01/15/23 History (units unknown) (unknown) (unknown) (no date) (unknown) (unknown) metoprolol succinate 50 mg 50 mg PO BID 90 days #180 tabs 12/21/22 01/15/23 Rx (units unknown) (unknown) (unknown) (no date) (unknown) (unknown) midline, no adenopathy, no thyroid enlargement, nontender, no masses palpated. (units unknown) (unknown) (unknown) (no date) (unknown) (unknown) midnights, will require fluid resuscitation, IV antibiotics evaluation of left (units unknown) (unknown) (unknown) (no date) (unknown) (unknown) needed (units unknown) (unknown) (unknown) (no date) (unknown) (unknown) negative acute ST changes, depression in lead 1 and aVL, similar in comparison (units unknown) (unknown) (unknown) (no date) (unknown) (unknown) negative for, FiO2 21. WBC 15.9, newt 13,000, mono 1500 procalcitonin 0.5, (units unknown) (unknown) (unknown) (no date) (unknown) (unknown) negative, COVID influenza a/B/RSV are all negative. 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 Patient (units unknown) (unknown) (unknown) (no date) (unknown) (unknown) on admission-resolved (units unknown) (unknown) (unknown) (no date) (unknown) (unknown) pain of the left lower extremity for the past week, nausea and vomiting on way (units unknown) (unknown) (unknown) (no date) (unknown) (unknown) patient's obesity increases the difficulty and complexity of medical and/or (units unknown) (unknown) (unknown) (no date) (unknown) (unknown) peripheral neuropathy, chronic, present on admission-uncontrol led (units unknown) (unknown) (unknown) (no date) (unknown) (unknown) piperacillin [From Zosyn] Allergy Severe Uticaria Verified 05/11/20 22:50 (units unknown) (unknown) (unknown) (no date) (unknown) (unknown) placed patient on Zosyn with Benadryl to be given prior to dosage patient has (units unknown) (unknown) (unknown) (no date) (unknown) (unknown) rate control with oral medications. (units unknown) (unknown) (unknown) (no date) (unknown) (unknown) rate of 169, negative acute ST changes, depression in lead 1 and aVL, similar in (units unknown) (unknown) (unknown) (no date) (unknown) (unknown) rates up to 209, tachypneic respiratory rates 30-50 in atrial fibrillation. (units unknown) (unknown) (unknown) (no date) (unknown) (unknown) record. (units unknown) (unknown) (unknown) (no date) (unknown) (unknown) retractions, or tachypneic labored breathing (units unknown) (unknown) (unknown) (no date) (unknown) (unknown) rivaroxaban 20 mg tablet (Xarelto) 20 mg PO QPM 05/11/20 01/15/23 History (units unknown) (unknown) (unknown) (no date) (unknown) (unknown) shock secondary to left lower extremity cellulitis, hyponatremia (units unknown) (unknown) (unknown) (no date) (unknown) (unknown) states his primary care is through the [facility].? In the ED patient was (units unknown) (unknown) (unknown) (no date) (unknown) (unknown) subcutaneous solution (Lantus (units unknown) (unknown) (unknown) (no date) (unknown) (unknown) such as morbidity and mortality as well as impaired wound healing. (units unknown) (unknown) (unknown) (no date) (unknown) (unknown) surgical interventions, management and increases the chances of poor outcome (units unknown) (unknown) (unknown) (no date) (unknown) (unknown) tablet,extended release 24 hr (units unknown) (unknown) (unknown) (no date) (unknown) (unknown) taking medications regularly at that time.? Patient presents with 5 days of (units unknown) (unknown) (unknown) (no date) (unknown) (unknown) tazobactam [From Zosyn] Allergy Severe Uticaria Verified 05/11/20 22:50 (units unknown) (unknown) (unknown) (no date) (unknown) (unknown) the patient's current medications. (units unknown) (unknown) (unknown) (no date) (unknown) (unknown) time. (units unknown) (unknown) (unknown) (no date) (unknown) (unknown) to EKG from 12/18/2022, last echo 11/2022 EF 35-40%. (units unknown) (unknown) (unknown) (no date) (unknown) (unknown) to EKG from 12/18/2022, (units unknown) (unknown) (unknown) (no date) (unknown) (unknown) to obesity as it relates to chronic illnesses:, and acute illness. The (units unknown) (unknown) (unknown) (no date) (unknown) (unknown) to the hospital. Patient admitted to the ICU teleICU for atrial fibrillation (units unknown) (unknown) (unknown) (no date) (unknown) (unknown) tolerated well and not had any reaction. (units unknown) (unknown) (unknown) (no date) (unknown) (unknown) ultrasound imaging may consider adding vancomycin, General surgery consult if (units unknown) (unknown) (unknown) (no date) (unknown) (unknown) urinary incontinence/retent ion, dysuria, frequency, urgency, hematuria, bowel (units unknown) (unknown) (unknown) (no date) (unknown) (unknown) vascular congestion. I personally reviewed all imaging and EKG. EKG: AFib RVR (units unknown) (unknown) (unknown) (no date) (unknown) (unknown) vision, difficulty swallowing, speech impairment, weakness, numbness, tingling, (units unknown) (unknown) (unknown) (no date) (unknown) (unknown) week, nausea and vomiting on way to the hospital. Patient was sent to be (units unknown) (unknown) (unknown) (no date) (unknown) (unknown) wheezes, rhonchi, or rales. (units unknown) (unknown) (unknown) (no date) (unknown) (unknown) with RVR, sepsis without shock secondary to left lower extremity cellulitis, (units unknown) (unknown) Result panel 439 (unknown) (no date) (unknown) (unknown) (no value) (units unknown) (unknown) (unknown) (no date) (unknown) (unknown) (past 8 hours): (units unknown) (unknown) (unknown) (no date) (unknown) (unknown) -1 L fluid bolus given on admit, followed by NS at 150 cc/hour (units unknown) (unknown) (unknown) (no date) (unknown) (unknown) -A1c has been ordered, A1c machine has been down (units unknown) (unknown) (unknown) (no date) (unknown) (unknown) -Admit 110/55, MAP 81, Afib, RR 20, O2 saturation 94% on room air (units unknown) (unknown) (unknown) (no date) (unknown) (unknown) -BMI 30.8 (units unknown) (unknown) (unknown) (no date) (unknown) (unknown) -Chest x-ray mild pulmonary vascular congestion. (units unknown) (unknown) (unknown) (no date) (unknown) (unknown) -ED : BP 193/91, 183/84, (units unknown) (unknown) (unknown) (no date) (unknown) (unknown) -ED :temp 101?, BP 193/91, 183/84, HR to 209, RR 30-50. (units unknown) (unknown) (unknown) (no date) (unknown) (unknown) -I personally reviewed all imaging and EKG. EKG: AFib RVR rate of 169, (units unknown) (unknown) (unknown) (no date) (unknown) (unknown) -In ED Hr up to 209 (units unknown) (unknown) (unknown) (no date) (unknown) (unknown) -Mag 1.2 ordered 2 g rider (units unknown) (unknown) (unknown) (no date) (unknown) (unknown) -SOFA:2, febrile, tachycardic, tachypneic (units unknown) (unknown) (unknown) (no date) (unknown) (unknown) -Sodium 128, Cl 96, BUN 24, bicarb 19, glucose 252 (units unknown) (unknown) (unknown) (no date) (unknown) (unknown) -Sodium 128, Cl 96, BUN 24, bicarb 19, glucose 252, Mag 1.2, PT 19.2, INR 1.7, (units unknown) (unknown) (unknown) (no date) (unknown) (unknown) -VBG: PH 7.44, pCO2 30.5, PO2 34, bicarb 21, TCO2 21, O2 sat 69%, BE negative (units unknown) (unknown) (unknown) (no date) (unknown) (unknown) -WBC 15.9, newt 13,000, mono 1500 procalcitonin 0.5, initial lactate 3.2, repeat (units unknown) (unknown) (unknown) (no date) (unknown) (unknown) -admit continued to have a low-grade fever 100.9, developed hypotension 102/59, (units unknown) (unknown) (unknown) (no date) (unknown) (unknown) -admit hypotension 102/59, 98/54, map 75 (units unknown) (unknown) (unknown) (no date) (unknown) (unknown) -based on results of trending inflammatory markers, response to IV Zosyn and (units unknown) (unknown) (unknown) (no date) (unknown) (unknown) -blood sugar checks a.c. HS, with sliding-scale coverage, continue Lantus (units unknown) (unknown) (unknown) (no date) (unknown) (unknown) -continue Xarelto (units unknown) (unknown) (unknown) (no date) (unknown) (unknown) -dietary consult ordered regarding nutritional education and information for (units unknown) (unknown) (unknown) (no date) (unknown) (unknown) -holding patient's metoprolol and lisinopril restarted morning (units unknown) (unknown) (unknown) (no date) (unknown) (unknown) -last echo 11/2022 EF 35-40%. 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 (units unknown) (unknown) (unknown) (no date) (unknown) (unknown) -patient admitted under diabetic protocol (units unknown) (unknown) (unknown) (no date) (unknown) (unknown) -patient had a history of urticaria with a previous dosage of Zosyn in 2019, (units unknown) (unknown) (unknown) (no date) (unknown) (unknown) -patient has been noncompliant with Cardiology follow-up and medications (units unknown) (unknown) (unknown) (no date) (unknown) (unknown) -patient has diabetes with a history of osteomyelitis, 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 (units unknown) (unknown) (unknown) (no date) (unknown) (unknown) -patient received vancomycin in ED (units unknown) (unknown) (unknown) (no date) (unknown) (unknown) -patient was placed on diltiazem drip in the ED-currently on 2.5 (units unknown) (unknown) (unknown) (no date) (unknown) (unknown) -respiratory panel negative (units unknown) (unknown) (unknown) (no date) (unknown) (unknown) -restart metoprolol 50 mg b.i.d in am (units unknown) (unknown) (unknown) (no date) (unknown) (unknown) -the patient is at much higher risk for medical and surgical complications due (units unknown) (unknown) (unknown) (no date) (unknown) (unknown) -will leave patient on drip overnight for rest (units unknown) (unknown) (unknown) (no date) (unknown) (unknown) [id number] (units unknown) (unknown) (unknown) (no date) (unknown) (unknown) 01/15/23 01/15/23 01/15/23 (units unknown) (unknown) (unknown) (no date) (unknown) (unknown) 01/15/23 01/15/23 (units unknown) (unknown) (unknown) (no date) (unknown) (unknown) 01/15/23 15:25 (units unknown) (unknown) (unknown) (no date) (unknown) (unknown) 01/15/23 (units unknown) (unknown) (unknown) (no date) (unknown) (unknown) 01/16/23 0129 (units unknown) (unknown) (unknown) (no date) (unknown) (unknown) 1. Atrial fibrillation with RVR, acute on chronic, present on admission (units unknown) (unknown) (unknown) (no date) (unknown) (unknown) 1. (units unknown) (unknown) (unknown) (no date) (unknown) (unknown) 15:25 15:25 15:25 (units unknown) (unknown) (unknown) (no date) (unknown) (unknown) 15:25 15:25 15:49 (units unknown) (unknown) (unknown) (no date) (unknown) (unknown) 15:26 01/15/23 (units unknown) (unknown) (unknown) (no date) (unknown) (unknown) 15:27 01/15/23 (units unknown) (unknown) (unknown) (no date) (unknown) (unknown) 15:27 (units unknown) (unknown) (unknown) (no date) (unknown) (unknown) 15:29 01/15/23 (units unknown) (unknown) (unknown) (no date) (unknown) (unknown) 15:30 01/15/23 (units unknown) (unknown) (unknown) (no date) (unknown) (unknown) 15:30 (units unknown) (unknown) (unknown) (no date) (unknown) (unknown) 15:35 01/15/23 (units unknown) (unknown) (unknown) (no date) (unknown) (unknown) 15:40 (units unknown) (unknown) (unknown) (no date) (unknown) (unknown) 15:45 01/15/23 (units unknown) (unknown) (unknown) (no date) (unknown) (unknown) 15:48 01/15/23 (units unknown) (unknown) (unknown) (no date) (unknown) (unknown) 15:48 (units unknown) (unknown) (unknown) (no date) (unknown) (unknown) 15:50 01/15/23 (units unknown) (unknown) (unknown) (no date) (unknown) (unknown) 15:55 01/15/23 (units unknown) (unknown) (unknown) (no date) (unknown) (unknown) 15:55 (units unknown) (unknown) (unknown) (no date) (unknown) (unknown) 16:00 01/15/23 (units unknown) (unknown) (unknown) (no date) (unknown) (unknown) 16:00 (units unknown) (unknown) (unknown) (no date) (unknown) (unknown) 16:05 01/15/23 (units unknown) (unknown) (unknown) (no date) (unknown) (unknown) 16:10 01/15/23 (units unknown) (unknown) (unknown) (no date) (unknown) (unknown) 16:10 (units unknown) (unknown) (unknown) (no date) (unknown) (unknown) 16:15 01/15/23 (units unknown) (unknown) (unknown) (no date) (unknown) (unknown) 16:15 (units unknown) (unknown) (unknown) (no date) (unknown) (unknown) 16:20 01/15/23 (units unknown) (unknown) (unknown) (no date) (unknown) (unknown) 16:25 01/15/23 (units unknown) (unknown) (unknown) (no date) (unknown) (unknown) 16:25 (units unknown) (unknown) (unknown) (no date) (unknown) (unknown) 16:30 01/15/23 (units unknown) (unknown) (unknown) (no date) (unknown) (unknown) 16:30 (units unknown) (unknown) (unknown) (no date) (unknown) (unknown) 16:35 01/15/23 (units unknown) (unknown) (unknown) (no date) (unknown) (unknown) 16:40 01/15/23 (units unknown) (unknown) (unknown) (no date) (unknown) (unknown) 16:45 01/15/23 (units unknown) (unknown) (unknown) (no date) (unknown) (unknown) 16:45 (units unknown) (unknown) (unknown) (no date) (unknown) (unknown) 16:50 01/15/23 (units unknown) (unknown) (unknown) (no date) (unknown) (unknown) 16:50 (units unknown) (unknown) (unknown) (no date) (unknown) (unknown) 16:51 (units unknown) (unknown) (unknown) (no date) (unknown) (unknown) 16:55 01/15/23 (units unknown) (unknown) (unknown) (no date) (unknown) (unknown) 17:00 01/15/23 (units unknown) (unknown) (unknown) (no date) (unknown) (unknown) 17:00 (units unknown) (unknown) (unknown) (no date) (unknown) (unknown) 17:05 01/15/23 (units unknown) (unknown) (unknown) (no date) (unknown) (unknown) 17:05 (units unknown) (unknown) (unknown) (no date) (unknown) (unknown) 17:10 01/15/23 (units unknown) (unknown) (unknown) (no date) (unknown) (unknown) 17:15 01/15/23 (units unknown) (unknown) (unknown) (no date) (unknown) (unknown) 17:15 (units unknown) (unknown) (unknown) (no date) (unknown) (unknown) 17:20 01/15/23 (units unknown) (unknown) (unknown) (no date) (unknown) (unknown) 17:20 (units unknown) (unknown) (unknown) (no date) (unknown) (unknown) 17:25 01/15/23 (units unknown) (unknown) (unknown) (no date) (unknown) (unknown) 17:30 01/15/23 (units unknown) (unknown) (unknown) (no date) (unknown) (unknown) 17:30 (units unknown) (unknown) (unknown) (no date) (unknown) (unknown) 17:35 01/15/23 (units unknown) (unknown) (unknown) (no date) (unknown) (unknown) 17:35 (units unknown) (unknown) (unknown) (no date) (unknown) (unknown) 17:40 01/15/23 (units unknown) (unknown) (unknown) (no date) (unknown) (unknown) 17:45 01/15/23 (units unknown) (unknown) (unknown) (no date) (unknown) (unknown) 17:45 (units unknown) (unknown) (unknown) (no date) (unknown) (unknown) 17:50 01/15/23 (units unknown) (unknown) (unknown) (no date) (unknown) (unknown) 17:50 (units unknown) (unknown) (unknown) (no date) (unknown) (unknown) 17:55 01/15/23 (units unknown) (unknown) (unknown) (no date) (unknown) (unknown) 17:55 (units unknown) (unknown) (unknown) (no date) (unknown) (unknown) 18:07 (units unknown) (unknown) (unknown) (no date) (unknown) (unknown) 18:11 01/15/23 (units unknown) (unknown) (unknown) (no date) (unknown) (unknown) 18:15 01/15/23 (units unknown) (unknown) (unknown) (no date) (unknown) (unknown) 18:15 19:10 (units unknown) (unknown) (unknown) (no date) (unknown) (unknown) 18:20 (units unknown) (unknown) (unknown) (no date) (unknown) (unknown) 18:25 01/15/23 (units unknown) (unknown) (unknown) (no date) (unknown) (unknown) 18:26 01/15/23 (units unknown) (unknown) (unknown) (no date) (unknown) (unknown) 18:30 01/15/23 (units unknown) (unknown) (unknown) (no date) (unknown) (unknown) 18:35 (units unknown) (unknown) (unknown) (no date) (unknown) (unknown) 18:40 01/15/23 (units unknown) (unknown) (unknown) (no date) (unknown) (unknown) 18:45 01/15/23 (units unknown) (unknown) (unknown) (no date) (unknown) (unknown) 18:50 (units unknown) (unknown) (unknown) (no date) (unknown) (unknown) 2. Sepsis without septic shock, metabolic, likely secondary to left leg (units unknown) (unknown) (unknown) (no date) (unknown) (unknown) 2.5. VBG: PH 7.44, pCO2 30.5, PO2 34, bicarb 21, TCO2 21, O2 sat 69%, BE (units unknown) (unknown) (unknown) (no date) (unknown) (unknown) 252, Mag 1.2, PT 19.2, INR 1.7, lipase 367, BNP 2810, sofa score:2, anion gap (units unknown) (unknown) (unknown) (no date) (unknown) (unknown) 3. Essential hypertension, with hypertensive urgency, acute on chronic, present (units unknown) (unknown) (unknown) (no date) (unknown) (unknown) 3rd toe amputation in 2019 (units unknown) (unknown) (unknown) (no date) (unknown) (unknown) 4. Type 2 diabetes insulin-dependent, with hyperglycemia, acute on chronic, with (units unknown) (unknown) (unknown) (no date) (unknown) (unknown) 5 days, patient is a poor historian but verbalizes that he may have had (units unknown) (unknown) (unknown) (no date) (unknown) (unknown) 5. Overweight, mild, acute on chronic, present on admission (units unknown) (unknown) (unknown) (no date) (unknown) (unknown) 98/54, map 75, HR 86 Afib, RR 20, O2 saturation 94% (units unknown) (unknown) (unknown) (no date) (unknown) (unknown) ALT 29 (units unknown) (unknown) (unknown) (no date) (unknown) (unknown) ALT (units unknown) (unknown) (unknown) (no date) (unknown) (unknown) APTT 33 (units unknown) (unknown) (unknown) (no date) (unknown) (unknown) APTT (units unknown) (unknown) (unknown) (no date) (unknown) (unknown) AST 32 (units unknown) (unknown) (unknown) (no date) (unknown) (unknown) AST (units unknown) (unknown) (unknown) (no date) (unknown) (unknown) Abdomen: Soft nontender, negative for organomegaly, or masses. Bowel sounds (units unknown) (unknown) (unknown) (no date) (unknown) (unknown) Afib (units unknown) (unknown) (unknown) (no date) (unknown) (unknown) Age/Sex: 67 / M (units unknown) (unknown) (unknown) (no date) (unknown) (unknown) Albumin 4.1 (units unknown) (unknown) (unknown) (no date) (unknown) (unknown) Albumin (units unknown) (unknown) (unknown) (no date) (unknown) (unknown) Albumin/Globulin Ratio 1.1 (units unknown) (unknown) (unknown) (no date) (unknown) (unknown) Albumin/Globulin Ratio (units unknown) (unknown) (unknown) (no date) (unknown) (unknown) Alkaline Phosphatase 97 (units unknown) (unknown) (unknown) (no date) (unknown) (unknown) Alkaline Phosphatase (units unknown) (unknown) (unknown) (no date) (unknown) (unknown) All 12 point systems reviewed with the patient and are negative except otherwise (units unknown) (unknown) (unknown) (no date) (unknown) (unknown) Allergies (units unknown) (unknown) (unknown) (no date) (unknown) (unknown) Allergy/AdvReac Type Severity Reaction Status Date / Time (units unknown) (unknown) (unknown) (no date) (unknown) (unknown) Assessment + Plan narrative: (units unknown) (unknown) (unknown) (no date) (unknown) (unknown) Assessment + Plan (units unknown) (unknown) (unknown) (no date) (unknown) (unknown) At the time of admit continued to have a low-grade fever 100.9, developed (units unknown) (unknown) (unknown) (no date) (unknown) (unknown) BUN 24 H (units unknown) (unknown) (unknown) (no date) (unknown) (unknown) BUN (units unknown) (unknown) (unknown) (no date) (unknown) (unknown) BUN/Creatinine Ratio 21.4 (units unknown) (unknown) (unknown) (no date) (unknown) (unknown) BUN/Creatinine Ratio (units unknown) (unknown) (unknown) (no date) (unknown) (unknown) Baso # (Auto) 0 (units unknown) (unknown) (unknown) (no date) (unknown) (unknown) Baso # (Auto) (units unknown) (unknown) (unknown) (no date) (unknown) (unknown) Baso % (Auto) 0.3 (units unknown) (unknown) (unknown) (no date) (unknown) (unknown) Baso % (Auto) (units unknown) (unknown) (unknown) (no date) (unknown) (unknown) Been Physically Hurt or No (units unknown) (unknown) (unknown) (no date) (unknown) (unknown) Blood Pressure 102/59 L (units unknown) (unknown) (unknown) (no date) (unknown) (unknown) Blood Pressure 105/57 L (units unknown) (unknown) (unknown) (no date) (unknown) (unknown) Blood Pressure 106/58 L (units unknown) (unknown) (unknown) (no date) (unknown) (unknown) Blood Pressure 107/53 L (units unknown) (unknown) (unknown) (no date) (unknown) (unknown) Blood Pressure 108/58 L 104/54 L (units unknown) (unknown) (unknown) (no date) (unknown) (unknown) Blood Pressure 113/55 L 114/58 L (units unknown) (unknown) (unknown) (no date) (unknown) (unknown) Blood Pressure 113/58 L 108/59 L (units unknown) (unknown) (unknown) (no date) (unknown) (unknown) Blood Pressure 114/56 L 96/54 L (units unknown) (unknown) (unknown) (no date) (unknown) (unknown) Blood Pressure 115/58 L (units unknown) (unknown) (unknown) (no date) (unknown) (unknown) Blood Pressure 119/66 130/56 L (units unknown) (unknown) (unknown) (no date) (unknown) (unknown) Blood Pressure 120/56 L 126/61 (units unknown) (unknown) (unknown) (no date) (unknown) (unknown) Blood Pressure 122/57 L (units unknown) (unknown) (unknown) (no date) (unknown) (unknown) Blood Pressure 123/72 117/56 L (units unknown) (unknown) (unknown) (no date) (unknown) (unknown) Blood Pressure 125/58 L (units unknown) (unknown) (unknown) (no date) (unknown) (unknown) Blood Pressure 125/63 (units unknown) (unknown) (unknown) (no date) (unknown) (unknown) Blood Pressure 126/58 L (units unknown) (unknown) (unknown) (no date) (unknown) (unknown) Blood Pressure 127/57 L (units unknown) (unknown) (unknown) (no date) (unknown) (unknown) Blood Pressure 143/63 H (units unknown) (unknown) (unknown) (no date) (unknown) (unknown) Blood Pressure 156/60 H 122/58 L (units unknown) (unknown) (unknown) (no date) (unknown) (unknown) Blood Pressure 172/92 H (units unknown) (unknown) (unknown) (no date) (unknown) (unknown) Blood Pressure 183/84 H 140/69 (units unknown) (unknown) (unknown) (no date) (unknown) (unknown) Blood Pressure 193/91 H (units unknown) (unknown) (unknown) (no date) (unknown) (unknown) Blood Pressure 98/54 L (units unknown) (unknown) (unknown) (no date) (unknown) (unknown) Blood Pressure (units unknown) (unknown) (unknown) (no date) (unknown) (unknown) CK-MB (CK-2) 1.09 (units unknown) (unknown) (unknown) (no date) (unknown) (unknown) CK-MB (CK-2) Rel Index 0.8 L (units unknown) (unknown) (unknown) (no date) (unknown) (unknown) CK-MB (CK-2) Rel Index (units unknown) (unknown) (unknown) (no date) (unknown) (unknown) CK-MB (CK-2) (units unknown) (unknown) (unknown) (no date) (unknown) (unknown) COVID negative. (units unknown) (unknown) (unknown) (no date) (unknown) (unknown) Calcium 8.9 (units unknown) (unknown) (unknown) (no date) (unknown) (unknown) Calcium (units unknown) (unknown) (unknown) (no date) (unknown) (unknown) Carbon Dioxide 19 L (units unknown) (unknown) (unknown) (no date) (unknown) (unknown) Carbon Dioxide (units unknown) (unknown) (unknown) (no date) (unknown) (unknown) Cardio: regular rate and rhythm without murmur, rubs, or gallops, no carotid (units unknown) (unknown) (unknown) (no date) (unknown) (unknown) Chest: Normal AP diameter and contour without kyphoscoliosis, no nasal flaring, (units unknown) (unknown) (unknown) (no date) (unknown) (unknown) Chief complaint: vomiting/shaking/fe trell (units unknown) (unknown) (unknown) (no date) (unknown) (unknown) Chloride 96 L (units unknown) (unknown) (unknown) (no date) (unknown) (unknown) Chloride (units unknown) (unknown) (unknown) (no date) (unknown) (unknown) Code status is full code. (units unknown) (unknown) (unknown) (no date) (unknown) (unknown) Creatinine 1.12 (units unknown) (unknown) (unknown) (no date) (unknown) (unknown) Creatinine (units unknown) (unknown) (unknown) (no date) (unknown) (unknown) : 1955 Acct:[id number] (units unknown) (unknown) (unknown) (no date) (unknown) (unknown) DVT prophylaxis with Xarelto. (units unknown) (unknown) (unknown) (no date) (unknown) (unknown) Date Patient Seen: 01/15/23 (units unknown) (unknown) (unknown) (no date) (unknown) (unknown) Date of Service: 01/15/23 (units unknown) (unknown) (unknown) (no date) (unknown) (unknown) Deep Vein Thrombosis/Pulmonar y Embolism Present on Admission: No (units unknown) (unknown) (unknown) (no date) (unknown) (unknown) Diabetes mellitus (units unknown) (unknown) (unknown) (no date) (unknown) (unknown) Diabetes (units unknown) (unknown) (unknown) (no date) (unknown) (unknown) Disposition: Patient admitted to the ICU expected length of stay greater than 2 (units unknown) (unknown) (unknown) (no date) (unknown) (unknown) Environment (units unknown) (unknown) (unknown) (no date) (unknown) (unknown) Eos # (Auto) 0 (units unknown) (unknown) (unknown) (no date) (unknown) (unknown) Eos # (Auto) (units unknown) (unknown) (unknown) (no date) (unknown) (unknown) Eos % (Auto) 0.0 L (units unknown) (unknown) (unknown) (no date) (unknown) (unknown) Eos % (Auto) (units unknown) (unknown) (unknown) (no date) (unknown) (unknown) Estimated GFR > 60 (units unknown) (unknown) (unknown) (no date) (unknown) (unknown) Estimated GFR (units unknown) (unknown) (unknown) (no date) (unknown) (unknown) Exam Narrative: (units unknown) (unknown) (unknown) (no date) (unknown) (unknown) Exam (units unknown) (unknown) (unknown) (no date) (unknown) (unknown) Family + Social History (units unknown) (unknown) (unknown) (no date) (unknown) (unknown) Family History (units unknown) (unknown) (unknown) (no date) (unknown) (unknown) Father Smoker (units unknown) (unknown) (unknown) (no date) (unknown) (unknown) Feels Safe in Current Yes (units unknown) (unknown) (unknown) (no date) (unknown) (unknown) General: Patient is a well-developed, well-nourished in no distress at this (units unknown) (unknown) (unknown) (no date) (unknown) (unknown) Globulin 3.6 (units unknown) (unknown) (unknown) (no date) (unknown) (unknown) Globulin (units unknown) (unknown) (unknown) (no date) (unknown) (unknown) Glucose 252 H (units unknown) (unknown) (unknown) (no date) (unknown) (unknown) Glucose (units unknown) (unknown) (unknown) (no date) (unknown) (unknown) HEENT: Normocephalic, atraumatic, extraocular muscles intact, oral pharynx is (units unknown) (unknown) (unknown) (no date) (unknown) (unknown) Hct 43.2 (units unknown) (unknown) (unknown) (no date) (unknown) (unknown) Hct (units unknown) (unknown) (unknown) (no date) (unknown) (unknown) Heart attack (units unknown) (unknown) (unknown) (no date) (unknown) (unknown) Hgb 14.6 (units unknown) (unknown) (unknown) (no date) (unknown) (unknown) Hgb (units unknown) (unknown) (unknown) (no date) (unknown) (unknown) History + Physical Report (units unknown) (unknown) (unknown) (no date) (unknown) (unknown) History of Present Illness (units unknown) (unknown) (unknown) (no date) (unknown) (unknown) History of hernia repair (units unknown) (unknown) (unknown) (no date) (unknown) (unknown) History of neck surgery (units unknown) (unknown) (unknown) (no date) (unknown) (unknown) Home Medications and Allergies (units unknown) (unknown) (unknown) (no date) (unknown) (unknown) Home Medications (units unknown) (unknown) (unknown) (no date) (unknown) (unknown) Hyperlipidemia (units unknown) (unknown) (unknown) (no date) (unknown) (unknown) Hypertension (units unknown) (unknown) (unknown) (no date) (unknown) (unknown) I confirmed that the patient's advanced care plan is present, Code status is (units unknown) (unknown) (unknown) (no date) (unknown) (unknown) I have personally reviewed patient's chart notes from PCP, specialists, (units unknown) (unknown) (unknown) (no date) (unknown) (unknown) I have utilized all available immediate resources to obtain, update, or review (units unknown) (unknown) (unknown) (no date) (unknown) (unknown) INR 1.7 H (units unknown) (unknown) (unknown) (no date) (unknown) (unknown) INR (units unknown) (unknown) (unknown) (no date) (unknown) (unknown) Influenza A (RT-PCR) Flu a negative (units unknown) (unknown) (unknown) (no date) (unknown) (unknown) Influenza A (RT-PCR) (units unknown) (unknown) (unknown) (no date) (unknown) (unknown) Influenza B (RT-PCR) Flu b negative (units unknown) (unknown) (unknown) (no date) (unknown) (unknown) Influenza B (RT-PCR) (units unknown) (unknown) (unknown) (no date) (unknown) (unknown) [address] [address] (units unknown) (unknown) (unknown) (no date) (unknown) (unknown) Arvind Brock is a 67yo M with PMH of A-fib on [place] [id number] with peripheral (units unknown) (unknown) (unknown) (no date) (unknown) (unknown) Laboratory Results - last 24 hr (units unknown) (unknown) (unknown) (no date) (unknown) (unknown) Labs (units unknown) (unknown) (unknown) (no date) (unknown) (unknown) Labs: (units unknown) (unknown) (unknown) (no date) (unknown) (unknown) Lactate 1.0 (units unknown) (unknown) (unknown) (no date) (unknown) (unknown) Lactate 3.2 H (units unknown) (unknown) (unknown) (no date) (unknown) (unknown) Lactate (units unknown) (unknown) (unknown) (no date) (unknown) (unknown) Lipase 367 H (units unknown) (unknown) (unknown) (no date) (unknown) (unknown) Lipase (units unknown) (unknown) (unknown) (no date) (unknown) (unknown) Lungs: Auscultation of all lung neff are clear without adventitious sounds, (units unknown) (unknown) (unknown) (no date) (unknown) (unknown) Lymph # (Auto) 1400 (units unknown) (unknown) (unknown) (no date) (unknown) (unknown) Lymph # (Auto) (units unknown) (unknown) (unknown) (no date) (unknown) (unknown) Lymph % (Auto) 9.0 L (units unknown) (unknown) (unknown) (no date) (unknown) (unknown) Lymph % (Auto) (units unknown) (unknown) (unknown) (no date) (unknown) (unknown) MCH 29.3 (units unknown) (unknown) (unknown) (no date) (unknown) (unknown) MCH (units unknown) (unknown) (unknown) (no date) (unknown) (unknown) MCHC 33.8 (units unknown) (unknown) (unknown) (no date) (unknown) (unknown) MCHC (units unknown) (unknown) (unknown) (no date) (unknown) (unknown) MCV 86.5 (units unknown) (unknown) (unknown) (no date) (unknown) (unknown) MCV (units unknown) (unknown) (unknown) (no date) (unknown) (unknown) Magnesium 1.2 L (units unknown) (unknown) (unknown) (no date) (unknown) (unknown) Magnesium (units unknown) (unknown) (unknown) (no date) (unknown) (unknown) Medical History (units unknown) (unknown) (unknown) (no date) (unknown) (unknown) Medication Instructions Recorded Confirmed Type (units unknown) (unknown) (unknown) (no date) (unknown) (unknown) Meds (units unknown) (unknown) (unknown) (no date) (unknown) (unknown) [place] # (Auto) 1500 H (units unknown) (unknown) (unknown) (no date) (unknown) (unknown) [place] # (Auto) (units unknown) (unknown) (unknown) (no date) (unknown) (unknown) [place] % (Auto) 9.2 (units unknown) (unknown) (unknown) (no date) (unknown) (unknown) [place] % (Auto) (units unknown) (unknown) (unknown) (no date) (unknown) (unknown) Mother No significant medical problems (units unknown) (unknown) (unknown) (no date) (unknown) (unknown) Musculoskeletal: Bilateral lower extremity edema, left greater than right, left (units unknown) (unknown) (unknown) (no date) (unknown) (unknown) NT-Pro-B Natriuret Pep 2810 H (units unknown) (unknown) (unknown) (no date) (unknown) (unknown) NT-Pro-B Natriuret Pep (units unknown) (unknown) (unknown) (no date) (unknown) (unknown) Narrative (units unknown) (unknown) (unknown) (no date) (unknown) (unknown) Narrative: (units unknown) (unknown) (unknown) (no date) (unknown) (unknown) Nasal Screen MRSA (PCR) Not detected (units unknown) (unknown) (unknown) (no date) (unknown) (unknown) Nasal Screen MRSA (PCR) (units unknown) (unknown) (unknown) (no date) (unknown) (unknown) Negative for JVD (units unknown) (unknown) (unknown) (no date) (unknown) (unknown) Neuro: Alert and orientated x3, moves all extremities, sensation to touch (units unknown) (unknown) (unknown) (no date) (unknown) (unknown) Neuropathy of both feet (units unknown) (unknown) (unknown) (no date) (unknown) (unknown) Neut # (Auto) 32447 H (units unknown) (unknown) (unknown) (no date) (unknown) (unknown) Neut # (Auto) (units unknown) (unknown) (unknown) (no date) (unknown) (unknown) Neut % (Auto) 81.5 H (units unknown) (unknown) (unknown) (no date) (unknown) (unknown) Neut % (Auto) (units unknown) (unknown) (unknown) (no date) (unknown) (unknown) Objective (units unknown) (unknown) (unknown) (no date) (unknown) (unknown) On admit patient denies chest pain, shortness in breath, headache, changes in (units unknown) (unknown) (unknown) (no date) (unknown) (unknown) Oxygen Delivery Method Room Air (units unknown) (unknown) (unknown) (no date) (unknown) (unknown) Oxygen Delivery Method (units unknown) (unknown) (unknown) (no date) (unknown) (unknown) Oxygen Flow Rate 0 (units unknown) (unknown) (unknown) (no date) (unknown) (unknown) Oxygen Flow Rate (units unknown) (unknown) (unknown) (no date) (unknown) (unknown) PT 19.2 H (units unknown) (unknown) (unknown) (no date) (unknown) (unknown) PT (units unknown) (unknown) (unknown) (no date) (unknown) (unknown) Patient History (units unknown) (unknown) (unknown) (no date) (unknown) (unknown) Patient was given an initial dose of diltiazem and then placed on a Dilt drip. (units unknown) (unknown) (unknown) (no date) (unknown) (unknown) Patient: Arvind Brock MR#: [id number] (units unknown) (unknown) (unknown) (no date) (unknown) (unknown) Plt Count 162 (units unknown) (unknown) (unknown) (no date) (unknown) (unknown) Plt Count (units unknown) (unknown) (unknown) (no date) (unknown) (unknown) Potassium 4.5 (units unknown) (unknown) (unknown) (no date) (unknown) (unknown) Potassium (units unknown) (unknown) (unknown) (no date) (unknown) (unknown) Prior Living Arrangements House (units unknown) (unknown) (unknown) (no date) (unknown) (unknown) Procalcitonin 0.50 (units unknown) (unknown) (unknown) (no date) (unknown) (unknown) Procalcitonin (units unknown) (unknown) (unknown) (no date) (unknown) (unknown) Provider: Piper Brannon (units unknown) (unknown) (unknown) (no date) (unknown) (unknown) Proxy is Almaz Brock. (units unknown) (unknown) (unknown) (no date) (unknown) (unknown) Psych: Patient has a well-kept appearance, appropriate affect, mental status (units unknown) (unknown) (unknown) (no date) (unknown) (unknown) Pulse Oximetry 93 93 (units unknown) (unknown) (unknown) (no date) (unknown) (unknown) Pulse Oximetry 93 94 (units unknown) (unknown) (unknown) (no date) (unknown) (unknown) Pulse Oximetry 93 (units unknown) (unknown) (unknown) (no date) (unknown) (unknown) Pulse Oximetry 94 94 (units unknown) (unknown) (unknown) (no date) (unknown) (unknown) Pulse Oximetry 94 95 95 (units unknown) (unknown) (unknown) (no date) (unknown) (unknown) Pulse Oximetry 94 95 (units unknown) (unknown) (unknown) (no date) (unknown) (unknown) Pulse Oximetry 94 (units unknown) (unknown) (unknown) (no date) (unknown) (unknown) Pulse Oximetry 95 91 (units unknown) (unknown) (unknown) (no date) (unknown) (unknown) Pulse Oximetry 95 94 94 (units unknown) (unknown) (unknown) (no date) (unknown) (unknown) Pulse Oximetry 95 95 (units unknown) (unknown) (unknown) (no date) (unknown) (unknown) Pulse Oximetry 95 96 (units unknown) (unknown) (unknown) (no date) (unknown) (unknown) Pulse Oximetry 95 (units unknown) (unknown) (unknown) (no date) (unknown) (unknown) Pulse Oximetry 96 (units unknown) (unknown) (unknown) (no date) (unknown) (unknown) Pulse Oximetry 97 98 (units unknown) (unknown) (unknown) (no date) (unknown) (unknown) Pulse Oximetry 99 95 93 (units unknown) (unknown) (unknown) (no date) (unknown) (unknown) Pulse Oximetry 99 (units unknown) (unknown) (unknown) (no date) (unknown) (unknown) Pulse Rate 100 H 104 H (units unknown) (unknown) (unknown) (no date) (unknown) (unknown) Pulse Rate 101 H (units unknown) (unknown) (unknown) (no date) (unknown) (unknown) Pulse Rate 102 H 105 H (units unknown) (unknown) (unknown) (no date) (unknown) (unknown) Pulse Rate 102 H (units unknown) (unknown) (unknown) (no date) (unknown) (unknown) Pulse Rate 104 H 108 H (units unknown) (unknown) (unknown) (no date) (unknown) (unknown) Pulse Rate 104 H (units unknown) (unknown) (unknown) (no date) (unknown) (unknown) Pulse Rate 106 H 110 H (units unknown) (unknown) (unknown) (no date) (unknown) (unknown) Pulse Rate 106 H (units unknown) (unknown) (unknown) (no date) (unknown) (unknown) Pulse Rate 107 H 107 H (units unknown) (unknown) (unknown) (no date) (unknown) (unknown) Pulse Rate 108 H 105 H (units unknown) (unknown) (unknown) (no date) (unknown) (unknown) Pulse Rate 108 H (units unknown) (unknown) (unknown) (no date) (unknown) (unknown) Pulse Rate 109 H (units unknown) (unknown) (unknown) (no date) (unknown) (unknown) Pulse Rate 110 H 109 H (units unknown) (unknown) (unknown) (no date) (unknown) (unknown) Pulse Rate 112 H (units unknown) (unknown) (unknown) (no date) (unknown) (unknown) Pulse Rate 115 H 111 H (units unknown) (unknown) (unknown) (no date) (unknown) (unknown) Pulse Rate 116 H (units unknown) (unknown) (unknown) (no date) (unknown) (unknown) Pulse Rate 123 H 118 H (units unknown) (unknown) (unknown) (no date) (unknown) (unknown) Pulse Rate 135 H (units unknown) (unknown) (unknown) (no date) (unknown) (unknown) Pulse Rate 138 H 126 H (units unknown) (unknown) (unknown) (no date) (unknown) (unknown) Pulse Rate 209 H 172 H 172 H (units unknown) (unknown) (unknown) (no date) (unknown) (unknown) Pulse Rate 92 H 100 H 95 H (units unknown) (unknown) (unknown) (no date) (unknown) (unknown) Pulse Rate 93 H 89 90 (units unknown) (unknown) (unknown) (no date) (unknown) (unknown) Pulse Rate 95 H 86 86 (units unknown) (unknown) (unknown) (no date) (unknown) (unknown) Quality (units unknown) (unknown) (unknown) (no date) (unknown) (unknown) RBC 5.00 (units unknown) (unknown) (unknown) (no date) (unknown) (unknown) RBC (units unknown) (unknown) (unknown) (no date) (unknown) (unknown) RDW 15.3 H (units unknown) (unknown) (unknown) (no date) (unknown) (unknown) RDW (units unknown) (unknown) (unknown) (no date) (unknown) (unknown) RSV (PCR) Negative (units unknown) (unknown) (unknown) (no date) (unknown) (unknown) RSV (PCR) (units unknown) (unknown) (unknown) (no date) (unknown) (unknown) Respiratory Rate 30 H 51 H 53 H (units unknown) (unknown) (unknown) (no date) (unknown) (unknown) Respiratory Rate 30 H (units unknown) (unknown) (unknown) (no date) (unknown) (unknown) Respiratory Rate 31 H 32 H (units unknown) (unknown) (unknown) (no date) (unknown) (unknown) Respiratory Rate 31 H 34 H (units unknown) (unknown) (unknown) (no date) (unknown) (unknown) Respiratory Rate 31 H (units unknown) (unknown) (unknown) (no date) (unknown) (unknown) Respiratory Rate 32 H (units unknown) (unknown) (unknown) (no date) (unknown) (unknown) Respiratory Rate 34 H 32 H 28 H (units unknown) (unknown) (unknown) (no date) (unknown) (unknown) Respiratory Rate 34 H 34 H (units unknown) (unknown) (unknown) (no date) (unknown) (unknown) Respiratory Rate 34 H (units unknown) (unknown) (unknown) (no date) (unknown) (unknown) Respiratory Rate 35 H 31 H 37 H (units unknown) (unknown) (unknown) (no date) (unknown) (unknown) Respiratory Rate 35 H 33 H (units unknown) (unknown) (unknown) (no date) (unknown) (unknown) Respiratory Rate 35 H 36 H (units unknown) (unknown) (unknown) (no date) (unknown) (unknown) Respiratory Rate 35 H (units unknown) (unknown) (unknown) (no date) (unknown) (unknown) Respiratory Rate 36 H 35 H (units unknown) (unknown) (unknown) (no date) (unknown) (unknown) Respiratory Rate 36 H (units unknown) (unknown) (unknown) (no date) (unknown) (unknown) Respiratory Rate 37 H 39 H (units unknown) (unknown) (unknown) (no date) (unknown) (unknown) Respiratory Rate 37 H (units unknown) (unknown) (unknown) (no date) (unknown) (unknown) Respiratory Rate 38 H 37 H (units unknown) (unknown) (unknown) (no date) (unknown) (unknown) Respiratory Rate 38 H (units unknown) (unknown) (unknown) (no date) (unknown) (unknown) Respiratory Rate 39 H (units unknown) (unknown) (unknown) (no date) (unknown) (unknown) Respiratory Rate 40 H 39 H (units unknown) (unknown) (unknown) (no date) (unknown) (unknown) Respiratory Rate 43 H 44 H (units unknown) (unknown) (unknown) (no date) (unknown) (unknown) Respiratory Rate 47 H (units unknown) (unknown) (unknown) (no date) (unknown) (unknown) Respiratory Rate 51 H (units unknown) (unknown) (unknown) (no date) (unknown) (unknown) Review of Systems (units unknown) (unknown) (unknown) (no date) (unknown) (unknown) SARS-CoV-2 (PCR) Negative (units unknown) (unknown) (unknown) (no date) (unknown) (unknown) SARS-CoV-2 (PCR) (units unknown) (unknown) (unknown) (no date) (unknown) (unknown) Safety + Behavioral: (units unknown) (unknown) (unknown) (no date) (unknown) (unknown) Signed By:<Electronically signed by Piper Brannon> (units unknown) (unknown) (unknown) (no date) (unknown) (unknown) Skin: Warm dry and intact without rashes, ulcerations or petechiae. (units unknown) (unknown) (unknown) (no date) (unknown) (unknown) Smoking Status Never smoker (units unknown) (unknown) (unknown) (no date) (unknown) (unknown) Social History: (units unknown) (unknown) (unknown) (no date) (unknown) (unknown) Sodium 128 L (units unknown) (unknown) (unknown) (no date) (unknown) (unknown) Sodium (units unknown) (unknown) (unknown) (no date) (unknown) (unknown) Substance Use Type does not use (units unknown) (unknown) (unknown) (no date) (unknown) (unknown) Surgical History (units unknown) (unknown) (unknown) (no date) (unknown) (unknown) Temperature 100.9 F H (units unknown) (unknown) (unknown) (no date) (unknown) (unknown) Temperature 101 F H (units unknown) (unknown) (unknown) (no date) (unknown) (unknown) Temperature 101.1 F H (units unknown) (unknown) (unknown) (no date) (unknown) (unknown) Temperature (units unknown) (unknown) (unknown) (no date) (unknown) (unknown) Threatened By a Person (units unknown) (unknown) (unknown) (no date) (unknown) (unknown) Time Patient Seen: 20:27 (units unknown) (unknown) (unknown) (no date) (unknown) (unknown) Tobacco + Substance use: (units unknown) (unknown) (unknown) (no date) (unknown) (unknown) Total Bilirubin 1.2 (units unknown) (unknown) (unknown) (no date) (unknown) (unknown) Total Bilirubin (units unknown) (unknown) (unknown) (no date) (unknown) (unknown) Total Creatine Kinase 133 (units unknown) (unknown) (unknown) (no date) (unknown) (unknown) Total Creatine Kinase (units unknown) (unknown) (unknown) (no date) (unknown) (unknown) Total Protein 7.7 (units unknown) (unknown) (unknown) (no date) (unknown) (unknown) Total Protein (units unknown) (unknown) (unknown) (no date) (unknown) (unknown) Troponin I 0.016 (units unknown) (unknown) (unknown) (no date) (unknown) (unknown) Troponin I (units unknown) (unknown) (unknown) (no date) (unknown) (unknown) U-100 Insulin) (units unknown) (unknown) (unknown) (no date) (unknown) (unknown) VTE (units unknown) (unknown) (unknown) (no date) (unknown) (unknown) Vital Signs (units unknown) (unknown) (unknown) (no date) (unknown) (unknown) WBC 15.9 H (units unknown) (unknown) (unknown) (no date) (unknown) (unknown) WBC (units unknown) (unknown) (unknown) (no date) (unknown) (unknown) [Embedded Image Not Available] (units unknown) (unknown) (unknown) (no date) (unknown) (unknown) admitted to the ICU teleICU for atrial fibrillation with RVR, sepsis without (units unknown) (unknown) (unknown) (no date) (unknown) (unknown) afebrile temp 101?, hypertensive urgency BP 193/91, 183/84, tachycardic heart (units unknown) (unknown) (unknown) (no date) (unknown) (unknown) air-patient is stable in no distress sleeping heavily. Currently diltiazem drip (units unknown) (unknown) (unknown) (no date) (unknown) (unknown) alcohol intake frequency other (units unknown) (unknown) (unknown) (no date) (unknown) (unknown) alcohol intake never (units unknown) (unknown) (unknown) (no date) (unknown) (unknown) amputation. ? Patient presents with 5 days of fevers generally feeling unwell (units unknown) (unknown) (unknown) (no date) (unknown) (unknown) amputation. In ED was primary historian she is unsure if he is taking his (units unknown) (unknown) (unknown) (no date) (unknown) (unknown) are present in all 4 quadrants without guarding or rebound, no CVA tenderness. (units unknown) (unknown) (unknown) (no date) (unknown) (unknown) attitude thought context and judgment are appropriate for age. (units unknown) (unknown) (unknown) (no date) (unknown) (unknown) body aches, chills, cough, denies recent exposure to illness, abdominal pain, (units unknown) (unknown) (unknown) (no date) (unknown) (unknown) bruit, no cardiac pulsations present. (units unknown) (unknown) (unknown) (no date) (unknown) (unknown) cellulitis, acute, present on admission- stable (units unknown) (unknown) (unknown) (no date) (unknown) (unknown) changes, constipation, incontinence, melena, rashes, recent changes to (units unknown) (unknown) (unknown) (no date) (unknown) (unknown) clear and mucous membranes are moist. Neck is supple and symmetric, trachea is (units unknown) (unknown) (unknown) (no date) (unknown) (unknown) comparison to EKG from 12/18/2022, last echo 11/2022 EF 35-40%. Patient (units unknown) (unknown) (unknown) (no date) (unknown) (unknown) currently rate controlled (units unknown) (unknown) (unknown) (no date) (unknown) (unknown) diagnostic imaging, and laboratory results. (units unknown) (unknown) (unknown) (no date) (unknown) (unknown) dietary, lifestyle, exercise, and weight changes. (units unknown) (unknown) (unknown) (no date) (unknown) (unknown) difficulty with ambulation, recent falls, head injury, LOC, currently no fever, (units unknown) (unknown) (unknown) (no date) (unknown) (unknown) documented and/or surrogate decision maker is listed in the patient's medical (units unknown) (unknown) (unknown) (no date) (unknown) (unknown) documented. (units unknown) (unknown) (unknown) (no date) (unknown) (unknown) erythematous warm to touch, cellulitis radial and pedal pulses are normal. (units unknown) (unknown) (unknown) (no date) (unknown) (unknown) extremely resistant to coming into the emergency department, is frequently (units unknown) (unknown) (unknown) (no date) (unknown) (unknown) fevers generally feeling unwell he states his heart rate has been fast, fever x (units unknown) (unknown) (unknown) (no date) (unknown) (unknown) for, FiO2 21. (units unknown) (unknown) (unknown) (no date) (unknown) (unknown) he states his heart rate has been fast, fever x 5 days, patient is a poor (units unknown) (unknown) (unknown) (no date) (unknown) (unknown) historian but verbalizes that he may have had increased swelling redness and (units unknown) (unknown) (unknown) (no date) (unknown) (unknown) household members spouse (units unknown) (unknown) (unknown) (no date) (unknown) (unknown) hyponatremia (units unknown) (unknown) (unknown) (no date) (unknown) (unknown) hypotension 102/59, 98/54, map 75, HR 86 Afib, RR 20, O2 saturation 94% on room (units unknown) (unknown) (unknown) (no date) (unknown) (unknown) increased swelling redness and pain of the left lower extremity for the past (units unknown) (unknown) (unknown) (no date) (unknown) (unknown) initial lactate 3.2, repeat 1. Sodium 128, Cl 96, BUN 24, bicarb 19, glucose (units unknown) (unknown) (unknown) (no date) (unknown) (unknown) insulin glargine 100 unit/mL 12 unit SUBCUT BEDTIME 05/11/20 01/15/23 History (units unknown) (unknown) (unknown) (no date) (unknown) (unknown) intact, no gross deficits noted of cranial nerves. (units unknown) (unknown) (unknown) (no date) (unknown) (unknown) lipase 367, (units unknown) (unknown) (unknown) (no date) (unknown) (unknown) lisinopril 5 mg tablet 5 mg PO DAILY 90 days #90 tabs 12/21/22 01/15/23 Rx (units unknown) (unknown) (unknown) (no date) (unknown) (unknown) lower extremity cellulitis possibility of osteomyelitis, and atrial fibrillation (units unknown) (unknown) (unknown) (no date) (unknown) (unknown) medication, illness, injury, or trauma. (units unknown) (unknown) (unknown) (no date) (unknown) (unknown) medications regularly.? He was admitted for AFib RVR in November and was not (units unknown) (unknown) (unknown) (no date) (unknown) (unknown) metformin 500 mg tablet 500 mg PO BID 05/11/20 01/15/23 History (units unknown) (unknown) (unknown) (no date) (unknown) (unknown) metoprolol succinate 50 mg 50 mg PO BID 90 days #180 tabs 12/21/22 01/15/23 Rx (units unknown) (unknown) (unknown) (no date) (unknown) (unknown) midline, no adenopathy, no thyroid enlargement, nontender, no masses palpated. (units unknown) (unknown) (unknown) (no date) (unknown) (unknown) midnights, will require fluid resuscitation, IV antibiotics evaluation of left (units unknown) (unknown) (unknown) (no date) (unknown) (unknown) needed (units unknown) (unknown) (unknown) (no date) (unknown) (unknown) negative acute ST changes, depression in lead 1 and aVL, similar in comparison (units unknown) (unknown) (unknown) (no date) (unknown) (unknown) negative for, FiO2 21. WBC 15.9, newt 13,000, mono 1500 procalcitonin 0.5, (units unknown) (unknown) (unknown) (no date) (unknown) (unknown) negative, COVID influenza a/B/RSV are all negative. 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 Patient (units unknown) (unknown) (unknown) (no date) (unknown) (unknown) on admission-resolved (units unknown) (unknown) (unknown) (no date) (unknown) (unknown) pain of the left lower extremity for the past week, nausea and vomiting on way (units unknown) (unknown) (unknown) (no date) (unknown) (unknown) patient's obesity increases the difficulty and complexity of medical and/or (units unknown) (unknown) (unknown) (no date) (unknown) (unknown) peripheral neuropathy, chronic, present on admission-uncontrol led (units unknown) (unknown) (unknown) (no date) (unknown) (unknown) piperacillin [From Zosyn] Allergy Severe Uticaria Verified 05/11/20 22:50 (units unknown) (unknown) (unknown) (no date) (unknown) (unknown) placed patient on Zosyn with Benadryl to be given prior to dosage patient has (units unknown) (unknown) (unknown) (no date) (unknown) (unknown) rate control with oral medications. (units unknown) (unknown) (unknown) (no date) (unknown) (unknown) rate of 169, negative acute ST changes, depression in lead 1 and aVL, similar in (units unknown) (unknown) (unknown) (no date) (unknown) (unknown) rates up to 209, tachypneic respiratory rates 30-50 in atrial fibrillation. (units unknown) (unknown) (unknown) (no date) (unknown) (unknown) record. (units unknown) (unknown) (unknown) (no date) (unknown) (unknown) retractions, or tachypneic labored breathing (units unknown) (unknown) (unknown) (no date) (unknown) (unknown) rivaroxaban 20 mg tablet (Xarelto) 20 mg PO QPM 05/11/20 01/15/23 History (units unknown) (unknown) (unknown) (no date) (unknown) (unknown) shock secondary to left lower extremity cellulitis, hyponatremia (units unknown) (unknown) (unknown) (no date) (unknown) (unknown) states his primary care is through the [facility].? In the ED patient was (units unknown) (unknown) (unknown) (no date) (unknown) (unknown) subcutaneous solution (Lantus (units unknown) (unknown) (unknown) (no date) (unknown) (unknown) such as morbidity and mortality as well as impaired wound healing. (units unknown) (unknown) (unknown) (no date) (unknown) (unknown) surgical interventions, management and increases the chances of poor outcome (units unknown) (unknown) (unknown) (no date) (unknown) (unknown) tablet,extended release 24 hr (units unknown) (unknown) (unknown) (no date) (unknown) (unknown) taking medications regularly at that time.? Patient presents with 5 days of (units unknown) (unknown) (unknown) (no date) (unknown) (unknown) tazobactam [From Zosyn] Allergy Severe Uticaria Verified 05/11/20 22:50 (units unknown) (unknown) (unknown) (no date) (unknown) (unknown) the patient's current medications. (units unknown) (unknown) (unknown) (no date) (unknown) (unknown) time. (units unknown) (unknown) (unknown) (no date) (unknown) (unknown) to EKG from 12/18/2022, last echo 11/2022 EF 35-40%. (units unknown) (unknown) (unknown) (no date) (unknown) (unknown) to EKG from 12/18/2022, (units unknown) (unknown) (unknown) (no date) (unknown) (unknown) to obesity as it relates to chronic illnesses:, and acute illness. The (units unknown) (unknown) (unknown) (no date) (unknown) (unknown) to the hospital. Patient admitted to the ICU teleICU for atrial fibrillation (units unknown) (unknown) (unknown) (no date) (unknown) (unknown) tolerated well and not had any reaction. (units unknown) (unknown) (unknown) (no date) (unknown) (unknown) ultrasound imaging may consider adding vancomycin, General surgery consult if (units unknown) (unknown) (unknown) (no date) (unknown) (unknown) urinary incontinence/retent ion, dysuria, frequency, urgency, hematuria, bowel (units unknown) (unknown) (unknown) (no date) (unknown) (unknown) vascular congestion. I personally reviewed all imaging and EKG. EKG: AFib RVR (units unknown) (unknown) (unknown) (no date) (unknown) (unknown) vision, difficulty swallowing, speech impairment, weakness, numbness, tingling, (units unknown) (unknown) (unknown) (no date) (unknown) (unknown) week, nausea and vomiting on way to the hospital. Patient was sent to be (units unknown) (unknown) (unknown) (no date) (unknown) (unknown) wheezes, rhonchi, or rales. (units unknown) (unknown) (unknown) (no date) (unknown) (unknown) with RVR, sepsis without shock secondary to left lower extremity cellulitis, (units unknown) (unknown) Result panel 440 (unknown) (no date) (unknown) (unknown) 1.4 (units unknown) (unknown) (unknown) (no date) (unknown) (unknown) 16.4 seconds (unknown) Result panel 441 (unknown) (no date) (unknown) (unknown) 1.4 mmol/l (unknown) Result panel 442 (unknown) (no date) (unknown) (unknown) 1.9 mg/dl (unknown) Result panel 443 (unknown) (no date) (unknown) (unknown) 1.9 mg/dl (unknown) (unknown) (no date) (unknown) (unknown) 3710 pg/ml (unknown) (unknown) (no date) (unknown) (unknown) 3710 pg/ml (unknown) Result panel 444 (unknown) (no date) (unknown) (unknown) 12.9 mg/dl (unknown) Result panel 445 (unknown) (no date) (unknown) (unknown) 0.248 ng/ml (unknown) (unknown) (no date) (unknown) (unknown) 0.248 ng/ml (unknown) Result panel 446 (unknown) (no date) (unknown) (unknown) 41 mm/hr (unknown) Result panel 447 (unknown) (no date) (unknown) (unknown) 1.23 uiu/ml (unknown) (unknown) (no date) (unknown) (unknown) 1.26 ng/dl (unknown) Result panel 448 (unknown) (no date) (unknown) (unknown) 0 /ul (unknown) (unknown) (no date) (unknown) (unknown) 0 /ul (unknown) (unknown) (no date) (unknown) (unknown) 0.1 % (unknown) (unknown) (no date) (unknown) (unknown) 0.2 % (unknown) (unknown) (no date) (unknown) (unknown) 121 x10 3/ul (unknown) (unknown) (no date) (unknown) (unknown) 13.5 g/dl (unknown) (unknown) (no date) (unknown) (unknown) 15.3 % (unknown) (unknown) (no date) (unknown) (unknown) 29.5 pg (unknown) (unknown) (no date) (unknown) (unknown) 33.9 % (unknown) (unknown) (no date) (unknown) (unknown) 39.8 % (unknown) (unknown) (no date) (unknown) (unknown) 4.58 x10 6/ul (unknown) (unknown) (no date) (unknown) (unknown) 6.1 % (unknown) (unknown) (no date) (unknown) (unknown) 600 /ul (unknown) (unknown) (no date) (unknown) (unknown) 8.2 % (unknown) (unknown) (no date) (unknown) (unknown) 800 /ul (unknown) (unknown) (no date) (unknown) (unknown) 85.4 % (unknown) (unknown) (no date) (unknown) (unknown) 8500 /ul (unknown) (unknown) (no date) (unknown) (unknown) 86.9 fl (unknown) (unknown) (no date) (unknown) (unknown) 9.9 x10 3/ul (unknown) Result panel 449 (unknown) (no date) (unknown) (unknown) (no value) (units unknown) (unknown) (unknown) (no date) (unknown) (unknown) [id number] (units unknown) (unknown) (unknown) (no date) (unknown) (unknown) 01/16/23 (units unknown) (unknown) (unknown) (no date) (unknown) (unknown) [address] [place] [address] (units unknown) (unknown) (unknown) (no date) (unknown) (unknown) 4th distal (units unknown) (unknown) (unknown) (no date) (unknown) (unknown) Accession Number: [id number] (units unknown) (unknown) (unknown) (no date) (unknown) (unknown) Accession Number: [id number] (units unknown) (unknown) (unknown) (no date) (unknown) (unknown) Accession Number: [id number] (units unknown) (unknown) (unknown) (no date) (unknown) (unknown) Age/Sex: 67 / M Date of Service: (units unknown) (unknown) (unknown) (no date) (unknown) (unknown) [place] [address] (units unknown) (unknown) (unknown) (no date) (unknown) (unknown) Approved by: Reza Sanchez M.D. on 01/16/2023 at 8:41 (units unknown) (unknown) (unknown) (no date) (unknown) (unknown) Approved by: Reza Sanchez M.D. on 01/16/2023 at 8:43 (units unknown) (unknown) (unknown) (no date) (unknown) (unknown) Approved by: Reza Sanchez M.D. on 01/16/2023 at 8:53 (units unknown) (unknown) (unknown) (no date) (unknown) (unknown) Bones: No acute fractu or dislocation. Chronic appearing deformity involving (units unknown) (unknown) (unknown) (no date) (unknown) (unknown) Bones: No fractures or dislocations. Ankle mortise is normally aligned. No (units unknown) (unknown) (unknown) (no date) (unknown) (unknown) Bones: No fractures or dislocations. No suspicious bony lesions. (units unknown) (unknown) (unknown) (no date) (unknown) (unknown) COMPARISON: [facility], CR, XR FOOT LT MIN 3V, 10/04/2020, 10:09. (units unknown) (unknown) (unknown) (no date) (unknown) (unknown) COMPARISON: None. (units unknown) (unknown) (unknown) (no date) (unknown) (unknown) : 1955 Acct:[id number] (units unknown) (unknown) (unknown) (no date) (unknown) (unknown) Dictated by: Reza Sanchez M.D. on 01/16/2023 at 8:36 (units unknown) (unknown) (unknown) (no date) (unknown) (unknown) Dictated by: Reza Sanchez M.D. on 01/16/2023 at 8:41 (units unknown) (unknown) (unknown) (no date) (unknown) (unknown) Dictated by: Reza Sanchez M.D. on 01/16/2023 at 8:43 (units unknown) (unknown) (unknown) (no date) (unknown) (unknown) FINDINGS: (units unknown) (unknown) (unknown) (no date) (unknown) (unknown) IMPRESSION: Left foot osteoarthritis. No acute fracture or dislocation. No (units unknown) (unknown) (unknown) (no date) (unknown) (unknown) IMPRESSION: No acute ankle fracture or dislocation. No radiographic evidence (units unknown) (unknown) (unknown) (no date) (unknown) (unknown) IMPRESSION: No lower leg fracture or dislocation. No radiographic evidence of (units unknown) (unknown) (unknown) (no date) (unknown) (unknown) INDICATIONS: eval for osteo (units unknown) (unknown) (unknown) (no date) (unknown) (unknown) [facility] (units unknown) (unknown) (unknown) (no date) (unknown) (unknown) Loc: ICU 226-1 (units unknown) (unknown) (unknown) (no date) (unknown) (unknown) Ordering Provider: Judy Alvarado (units unknown) (unknown) (unknown) (no date) (unknown) (unknown) Osteoarthritic (units unknown) (unknown) (unknown) (no date) (unknown) (unknown) PROCEDURE: XR ANKLE LT 2V (units unknown) (unknown) (unknown) (no date) (unknown) (unknown) PROCEDURE: XR FOOT LT 2V (units unknown) (unknown) (unknown) (no date) (unknown) (unknown) PROCEDURE: XR TIBIA FIBULA LT 2V (units unknown) (unknown) (unknown) (no date) (unknown) (unknown) Patient: Arvind Brock MR#: [id number] (units unknown) (unknown) (unknown) (no date) (unknown) (unknown) Procedure: XR ankle LT 2V (units unknown) (unknown) (unknown) (no date) (unknown) (unknown) Procedure: XR foot LT 2V (units unknown) (unknown) (unknown) (no date) (unknown) (unknown) Procedure: XR tibia fibula LT 2V (units unknown) (unknown) (unknown) (no date) (unknown) (unknown) Signed (units unknown) (unknown) (unknown) (no date) (unknown) (unknown) Soft tissues: Diffuse ankle soft tissue swelling is noted. No tibiotalar joint (units unknown) (unknown) (unknown) (no date) (unknown) (unknown) Soft tissues: No suspicious soft tissue calcifications or masses. Ankle soft (units unknown) (unknown) (unknown) (no date) (unknown) (unknown) Soft tissues: No tibiotalar joint effusion. Achilles tendon appears normal. (units unknown) (unknown) (unknown) (no date) (unknown) (unknown) TECHNIQUE: 2 views of the ankle were acquired. (units unknown) (unknown) (unknown) (no date) (unknown) (unknown) TECHNIQUE: 2 views of the foot were acquired. (units unknown) (unknown) (unknown) (no date) (unknown) (unknown) TECHNIQUE: 2 views of the tibia and fibula were acquired. (units unknown) (unknown) (unknown) (no date) (unknown) (unknown) XRay Report (units unknown) (unknown) (unknown) (no date) (unknown) (unknown) bony (units unknown) (unknown) (unknown) (no date) (unknown) (unknown) calcaneal (units unknown) (unknown) (unknown) (no date) (unknown) (unknown) changes are noted throughout left foot. Well-defined plantar and dorsal (units unknown) (unknown) (unknown) (no date) (unknown) (unknown) definite (units unknown) (unknown) (unknown) (no date) (unknown) (unknown) effusion. Achilles tendon appears normal. (units unknown) (unknown) (unknown) (no date) (unknown) (unknown) enthesophytes are seen. No suspicious bony lesions. (units unknown) (unknown) (unknown) (no date) (unknown) (unknown) enthesophytes are seen. (units unknown) (unknown) (unknown) (no date) (unknown) (unknown) erosive changes. No suspicious bony lesions. Well-defined plantar and dorsal (units unknown) (unknown) (unknown) (no date) (unknown) (unknown) of (units unknown) (unknown) (unknown) (no date) (unknown) (unknown) osteomyelitis. Calcaneal enthesophytes. Diffuse ankle soft tissue swelling. (units unknown) (unknown) (unknown) (no date) (unknown) (unknown) osteomyelitis. (units unknown) (unknown) (unknown) (no date) (unknown) (unknown) phalangeal tuft is seen. No definite bony erosive changes are noted. (units unknown) (unknown) (unknown) (no date) (unknown) (unknown) radiographic evidence of osteomyelitis. (units unknown) (unknown) (unknown) (no date) (unknown) (unknown) swelling is seen. (units unknown) (unknown) (unknown) (no date) (unknown) (unknown) tissue (units unknown) (unknown) Result panel 450 (unknown) (no date) (unknown) (unknown) (no value) (units unknown) (unknown) (unknown) (no date) (unknown) (unknown) #180 tabs 12/21/22 [Rx Confirmed 01/15/23] (units unknown) (unknown) (unknown) (no date) (unknown) (unknown) (past 8 hours): (units unknown) (unknown) (unknown) (no date) (unknown) (unknown) 00:00 01/16/23 (units unknown) (unknown) (unknown) (no date) (unknown) (unknown) 00:00 (units unknown) (unknown) (unknown) (no date) (unknown) (unknown) 00:09 01/16/23 (units unknown) (unknown) (unknown) (no date) (unknown) (unknown) 00:30 01/16/23 (units unknown) (unknown) (unknown) (no date) (unknown) (unknown) 01:00 01/16/23 (units unknown) (unknown) (unknown) (no date) (unknown) (unknown) 01:00 (units unknown) (unknown) (unknown) (no date) (unknown) (unknown) 01:30 01/16/23 (units unknown) (unknown) (unknown) (no date) (unknown) (unknown) 01:30 (units unknown) (unknown) (unknown) (no date) (unknown) (unknown) [id number] (units unknown) (unknown) (unknown) (no date) (unknown) (unknown) 02:00 01/16/23 (units unknown) (unknown) (unknown) (no date) (unknown) (unknown) 02:15 02:15 02:15 (units unknown) (unknown) (unknown) (no date) (unknown) (unknown) 02:31 01/16/23 (units unknown) (unknown) (unknown) (no date) (unknown) (unknown) 02:31 (units unknown) (unknown) (unknown) (no date) (unknown) (unknown) 02:38 (units unknown) (unknown) (unknown) (no date) (unknown) (unknown) 01/15/23 01/15/23 01/15/23 (units unknown) (unknown) (unknown) (no date) (unknown) (unknown) 01/15/23 01/15/23 01/16/23 (units unknown) (unknown) (unknown) (no date) (unknown) (unknown) 01/15/23 15:25 (units unknown) (unknown) (unknown) (no date) (unknown) (unknown) 01/15/23 (units unknown) (unknown) (unknown) (no date) (unknown) (unknown) 01/15/23] (units unknown) (unknown) (unknown) (no date) (unknown) (unknown) 01/16/23 02:15 (units unknown) (unknown) (unknown) (no date) (unknown) (unknown) 01/16/23 01/16/23 01/16/23 (units unknown) (unknown) (unknown) (no date) (unknown) (unknown) 01/16/23 (units unknown) (unknown) (unknown) (no date) (unknown) (unknown) 03:00 01/16/23 (units unknown) (unknown) (unknown) (no date) (unknown) (unknown) 03:00 (units unknown) (unknown) (unknown) (no date) (unknown) (unknown) 03:30 01/16/23 (units unknown) (unknown) (unknown) (no date) (unknown) (unknown) 04:01 01/16/23 (units unknown) (unknown) (unknown) (no date) (unknown) (unknown) 04:01 (units unknown) (unknown) (unknown) (no date) (unknown) (unknown) 04:30 01/16/23 (units unknown) (unknown) (unknown) (no date) (unknown) (unknown) 04:30 (units unknown) (unknown) (unknown) (no date) (unknown) (unknown) 04:52 (units unknown) (unknown) (unknown) (no date) (unknown) (unknown) 15:25 15:25 15:25 (units unknown) (unknown) (unknown) (no date) (unknown) (unknown) 15:25 15:25 15:49 (units unknown) (unknown) (unknown) (no date) (unknown) (unknown) 18:15 19:10 20:51 (units unknown) (unknown) (unknown) (no date) (unknown) (unknown) 20:51 20:51 20:51 (units unknown) (unknown) (unknown) (no date) (unknown) (unknown) 20:51 21:50 02:15 (units unknown) (unknown) (unknown) (no date) (unknown) (unknown) 2100 [facility] Administration (units unknown) (unknown) (unknown) (no date) (unknown) (unknown) 23:00 01/15/23 (units unknown) (unknown) (unknown) (no date) (unknown) (unknown) 23:15 (units unknown) (unknown) (unknown) (no date) (unknown) (unknown) 23:30 01/15/23 (units unknown) (unknown) (unknown) (no date) (unknown) (unknown) 23:30 01/16/23 (units unknown) (unknown) (unknown) (no date) (unknown) (unknown) 67M with a PMH of DM (c/b R DM foot infection with toe amp), HTN, HLD, Afib with (units unknown) (unknown) (unknown) (no date) (unknown) (unknown) ACHS [facility] Administration (units unknown) (unknown) (unknown) (no date) (unknown) (unknown) ALT 29 (units unknown) (unknown) (unknown) (no date) (unknown) (unknown) ALT (units unknown) (unknown) (unknown) (no date) (unknown) (unknown) APTT 33 (units unknown) (unknown) (unknown) (no date) (unknown) (unknown) APTT (units unknown) (unknown) (unknown) (no date) (unknown) (unknown) AST 32 (units unknown) (unknown) (unknown) (no date) (unknown) (unknown) AST (units unknown) (unknown) (unknown) (no date) (unknown) (unknown) Adenovirus (PCR) Not detected (units unknown) (unknown) (unknown) (no date) (unknown) (unknown) Adenovirus (PCR) (units unknown) (unknown) (unknown) (no date) (unknown) (unknown) Afib (units unknown) (unknown) (unknown) (no date) (unknown) (unknown) Age/Sex: 67 / M (units unknown) (unknown) (unknown) (no date) (unknown) (unknown) Albumin 4.1 (units unknown) (unknown) (unknown) (no date) (unknown) (unknown) Albumin (units unknown) (unknown) (unknown) (no date) (unknown) (unknown) Albumin/Globulin Ratio 1.1 (units unknown) (unknown) (unknown) (no date) (unknown) (unknown) Albumin/Globulin Ratio (units unknown) (unknown) (unknown) (no date) (unknown) (unknown) Alkaline Phosphatase 97 (units unknown) (unknown) (unknown) (no date) (unknown) (unknown) Alkaline Phosphatase (units unknown) (unknown) (unknown) (no date) (unknown) (unknown) B. pertussis DNA (PCR) Not detected (units unknown) (unknown) (unknown) (no date) (unknown) (unknown) B. pertussis DNA (PCR) (units unknown) (unknown) (unknown) (no date) (unknown) (unknown) B.parapertussis DNA PCR Not detected (units unknown) (unknown) (unknown) (no date) (unknown) (unknown) B.parapertussis DNA PCR (units unknown) (unknown) (unknown) (no date) (unknown) (unknown) BEDTIME [facility] (units unknown) (unknown) (unknown) (no date) (unknown) (unknown) BUN 24 H (units unknown) (unknown) (unknown) (no date) (unknown) (unknown) BUN (units unknown) (unknown) (unknown) (no date) (unknown) (unknown) BUN/Creatinine Ratio 21.4 (units unknown) (unknown) (unknown) (no date) (unknown) (unknown) BUN/Creatinine Ratio (units unknown) (unknown) (unknown) (no date) (unknown) (unknown) Baso # (Auto) 0 (units unknown) (unknown) (unknown) (no date) (unknown) (unknown) Baso # (Auto) (units unknown) (unknown) (unknown) (no date) (unknown) (unknown) Baso % (Auto) 0.2 (units unknown) (unknown) (unknown) (no date) (unknown) (unknown) Baso % (Auto) 0.3 (units unknown) (unknown) (unknown) (no date) (unknown) (unknown) Baso % (Auto) (units unknown) (unknown) (unknown) (no date) (unknown) (unknown) Blood Pressure 108/68 (units unknown) (unknown) (unknown) (no date) (unknown) (unknown) Blood Pressure 110/55 L (units unknown) (unknown) (unknown) (no date) (unknown) (unknown) Blood Pressure 118/62 (units unknown) (unknown) (unknown) (no date) (unknown) (unknown) Blood Pressure 118/67 (units unknown) (unknown) (unknown) (no date) (unknown) (unknown) Blood Pressure 119/63 (units unknown) (unknown) (unknown) (no date) (unknown) (unknown) Blood Pressure 119/67 124/57 L (units unknown) (unknown) (unknown) (no date) (unknown) (unknown) Blood Pressure 129/58 L (units unknown) (unknown) (unknown) (no date) (unknown) (unknown) Blood Pressure 138/63 122/63 (units unknown) (unknown) (unknown) (no date) (unknown) (unknown) Blood Pressure 144/63 H 132/69 (units unknown) (unknown) (unknown) (no date) (unknown) (unknown) Blood Pressure (units unknown) (unknown) (unknown) (no date) (unknown) (unknown) C-Reactive Protein 12.9 H (units unknown) (unknown) (unknown) (no date) (unknown) (unknown) C-Reactive Protein (units unknown) (unknown) (unknown) (no date) (unknown) (unknown) CK-MB (CK-2) 1.09 (units unknown) (unknown) (unknown) (no date) (unknown) (unknown) CK-MB (CK-2) Rel Index 0.8 L (units unknown) (unknown) (unknown) (no date) (unknown) (unknown) CK-MB (CK-2) Rel Index (units unknown) (unknown) (unknown) (no date) (unknown) (unknown) CK-MB (CK-2) (units unknown) (unknown) (unknown) (no date) (unknown) (unknown) Calcium 8.9 (units unknown) (unknown) (unknown) (no date) (unknown) (unknown) Calcium (units unknown) (unknown) (unknown) (no date) (unknown) (unknown) Carbon Dioxide 19 L (units unknown) (unknown) (unknown) (no date) (unknown) (unknown) Carbon Dioxide (units unknown) (unknown) (unknown) (no date) (unknown) (unknown) Chief complaint: vomiting/shaking/fe trell (units unknown) (unknown) (unknown) (no date) (unknown) (unknown) Chlamy pneumoniae PCR Not detected (units unknown) (unknown) (unknown) (no date) (unknown) (unknown) Chlamy pneumoniae PCR (units unknown) (unknown) (unknown) (no date) (unknown) (unknown) Chloride 96 L (units unknown) (unknown) (unknown) (no date) (unknown) (unknown) Chloride (units unknown) (unknown) (unknown) (no date) (unknown) (unknown) Consent obtained for tele-head nurse care: Yes (units unknown) (unknown) (unknown) (no date) (unknown) (unknown) Consult details (units unknown) (unknown) (unknown) (no date) (unknown) (unknown) Coronavirus 229E (PCR) Not detected (units unknown) (unknown) (unknown) (no date) (unknown) (unknown) Coronavirus 229E (PCR) (units unknown) (unknown) (unknown) (no date) (unknown) (unknown) Coronavirus HKU1 (PCR) Not detected (units unknown) (unknown) (unknown) (no date) (unknown) (unknown) Coronavirus HKU1 (PCR) (units unknown) (unknown) (unknown) (no date) (unknown) (unknown) Coronavirus NL63 (PCR) Not detected (units unknown) (unknown) (unknown) (no date) (unknown) (unknown) Coronavirus NL63 (PCR) (units unknown) (unknown) (unknown) (no date) (unknown) (unknown) Coronavirus OC43 (PCR) Not detected (units unknown) (unknown) (unknown) (no date) (unknown) (unknown) Coronavirus OC43 (PCR) (units unknown) (unknown) (unknown) (no date) (unknown) (unknown) Creatinine 1.12 (units unknown) (unknown) (unknown) (no date) (unknown) (unknown) Creatinine (units unknown) (unknown) (unknown) (no date) (unknown) (unknown) Current Medications (units unknown) (unknown) (unknown) (no date) (unknown) (unknown) : 1955 Acct:[id number] (units unknown) (unknown) (unknown) (no date) (unknown) (unknown) Date of Service: 01/15/23 (units unknown) (unknown) (unknown) (no date) (unknown) (unknown) Diabetes mellitus (units unknown) (unknown) (unknown) (no date) (unknown) (unknown) Diabetes (units unknown) (unknown) (unknown) (no date) (unknown) (unknown) Diphenhydramine 25 Mg Tablet PO 25 mg (units unknown) (unknown) (unknown) (no date) (unknown) (unknown) Diphenhydramine HCl 25 mg 01/15/23 20:24 01/16/23 01:12 (units unknown) (unknown) (unknown) (no date) (unknown) (unknown) ESR 41 H (units unknown) (unknown) (unknown) (no date) (unknown) (unknown) ESR (units unknown) (unknown) (unknown) (no date) (unknown) (unknown) Entero/Rhino (PCR) Not detected (units unknown) (unknown) (unknown) (no date) (unknown) (unknown) Entero/Rhino (PCR) (units unknown) (unknown) (unknown) (no date) (unknown) (unknown) Eos # (Auto) 0 (units unknown) (unknown) (unknown) (no date) (unknown) (unknown) Eos # (Auto) (units unknown) (unknown) (unknown) (no date) (unknown) (unknown) Eos % (Auto) 0.0 L (units unknown) (unknown) (unknown) (no date) (unknown) (unknown) Eos % (Auto) 0.1 L (units unknown) (unknown) (unknown) (no date) (unknown) (unknown) Eos % (Auto) (units unknown) (unknown) (unknown) (no date) (unknown) (unknown) Estimated GFR > 60 (units unknown) (unknown) (unknown) (no date) (unknown) (unknown) Estimated GFR (units unknown) (unknown) (unknown) (no date) (unknown) (unknown) Ethyl Alcohol < 10 (units unknown) (unknown) (unknown) (no date) (unknown) (unknown) Ethyl Alcohol (units unknown) (unknown) (unknown) (no date) (unknown) (unknown) Exam (units unknown) (unknown) (unknown) (no date) (unknown) (unknown) Family History (units unknown) (unknown) (unknown) (no date) (unknown) (unknown) Father Smoker (units unknown) (unknown) (unknown) (no date) (unknown) (unknown) FiO2 21 (units unknown) (unknown) (unknown) (no date) (unknown) (unknown) FiO2 (units unknown) (unknown) (unknown) (no date) (unknown) (unknown) Free T4 1.26 (units unknown) (unknown) (unknown) (no date) (unknown) (unknown) Free T4 (units unknown) (unknown) (unknown) (no date) (unknown) (unknown) Generic Name Dose Route Start Last Admin (units unknown) (unknown) (unknown) (no date) (unknown) (unknown) Globulin 3.6 (units unknown) (unknown) (unknown) (no date) (unknown) (unknown) Globulin (units unknown) (unknown) (unknown) (no date) (unknown) (unknown) Glucose 252 H (units unknown) (unknown) (unknown) (no date) (unknown) (unknown) Glucose (units unknown) (unknown) (unknown) (no date) (unknown) (unknown) Hct 39.8 L (units unknown) (unknown) (unknown) (no date) (unknown) (unknown) Hct 43.2 (units unknown) (unknown) (unknown) (no date) (unknown) (unknown) Hct (units unknown) (unknown) (unknown) (no date) (unknown) (unknown) Heart attack (units unknown) (unknown) (unknown) (no date) (unknown) (unknown) Hemoglobin A1c Cancelled (units unknown) (unknown) (unknown) (no date) (unknown) (unknown) Hemoglobin A1c (units unknown) (unknown) (unknown) (no date) (unknown) (unknown) Hgb 13.5 (units unknown) (unknown) (unknown) (no date) (unknown) (unknown) Hgb 14.6 (units unknown) (unknown) (unknown) (no date) (unknown) (unknown) Hgb (units unknown) (unknown) (unknown) (no date) (unknown) (unknown) History of Present Illness (units unknown) (unknown) (unknown) (no date) (unknown) (unknown) History of hernia repair (units unknown) (unknown) (unknown) (no date) (unknown) (unknown) History of neck surgery (units unknown) (unknown) (unknown) (no date) (unknown) (unknown) Home Medications (units unknown) (unknown) (unknown) (no date) (unknown) (unknown) Human Metapneumovir PCR Not detected (units unknown) (unknown) (unknown) (no date) (unknown) (unknown) Human Metapneumovir PCR (units unknown) (unknown) (unknown) (no date) (unknown) (unknown) Hyperlipidemia (units unknown) (unknown) (unknown) (no date) (unknown) (unknown) Hypertension (units unknown) (unknown) (unknown) (no date) (unknown) (unknown) IF CAMERA ACTIVATED, patient seen via real-time interactive audiovisual (units unknown) (unknown) (unknown) (no date) (unknown) (unknown) INR 1.4 H (units unknown) (unknown) (unknown) (no date) (unknown) (unknown) INR 1.7 H (units unknown) (unknown) (unknown) (no date) (unknown) (unknown) INR (units unknown) (unknown) (unknown) (no date) (unknown) (unknown) Influenza A (RT-PCR) Flu a negative (units unknown) (unknown) (unknown) (no date) (unknown) (unknown) Influenza A (RT-PCR) (units unknown) (unknown) (unknown) (no date) (unknown) (unknown) Influenza B (RT-PCR) Flu b negative (units unknown) (unknown) (unknown) (no date) (unknown) (unknown) Influenza B (RT-PCR) (units unknown) (unknown) (unknown) (no date) (unknown) (unknown) Influenza Type A (PCR) Not detected (units unknown) (unknown) (unknown) (no date) (unknown) (unknown) Influenza Type A (PCR) (units unknown) (unknown) (unknown) (no date) (unknown) (unknown) Influenza Type B (PCR) Not detected (units unknown) (unknown) (unknown) (no date) (unknown) (unknown) Influenza Type B (PCR) (units unknown) (unknown) (unknown) (no date) (unknown) (unknown) Insulin Glargine 100 Unit/Ml 3ml Pen SUBCUT 12 unit (units unknown) (unknown) (unknown) (no date) (unknown) (unknown) Insulin Glargine 12 unit 01/15/23 21:00 01/15/23 21:37 (units unknown) (unknown) (unknown) (no date) (unknown) (unknown) Insulin Human Lispro 0 unit 01/15/23 21:00 01/15/23 21:36 (units unknown) (unknown) (unknown) (no date) (unknown) (unknown) Insulin Lispro 100 Unit/Ml 3ml Vial SUBCUT 2 unit (units unknown) (unknown) (unknown) (no date) (unknown) (unknown) [address] [id number] (units unknown) (unknown) (unknown) (no date) (unknown) (unknown) Itching (units unknown) (unknown) (unknown) (no date) (unknown) (unknown) Laboratory Results - last 24 hr (units unknown) (unknown) (unknown) (no date) (unknown) (unknown) Labs (units unknown) (unknown) (unknown) (no date) (unknown) (unknown) Labs: (units unknown) (unknown) (unknown) (no date) (unknown) (unknown) Lactate 1.0 (units unknown) (unknown) (unknown) (no date) (unknown) (unknown) Lactate 1.4 (units unknown) (unknown) (unknown) (no date) (unknown) (unknown) Lactate 3.2 H (units unknown) (unknown) (unknown) (no date) (unknown) (unknown) Lactate (units unknown) (unknown) (unknown) (no date) (unknown) (unknown) Lipase 367 H (units unknown) (unknown) (unknown) (no date) (unknown) (unknown) Lipase (units unknown) (unknown) (unknown) (no date) (unknown) (unknown) Lymph # (Auto) 1400 (units unknown) (unknown) (unknown) (no date) (unknown) (unknown) Lymph # (Auto) 600 L (units unknown) (unknown) (unknown) (no date) (unknown) (unknown) Lymph # (Auto) (units unknown) (unknown) (unknown) (no date) (unknown) (unknown) Lymph % (Auto) 6.1 L (units unknown) (unknown) (unknown) (no date) (unknown) (unknown) Lymph % (Auto) 9.0 L (units unknown) (unknown) (unknown) (no date) (unknown) (unknown) Lymph % (Auto) (units unknown) (unknown) (unknown) (no date) (unknown) (unknown) M. pneumoniae (PCR) Not detected (units unknown) (unknown) (unknown) (no date) (unknown) (unknown) M. pneumoniae (PCR) (units unknown) (unknown) (unknown) (no date) (unknown) (unknown) MCH 29.3 (units unknown) (unknown) (unknown) (no date) (unknown) (unknown) MCH 29.5 (units unknown) (unknown) (unknown) (no date) (unknown) (unknown) MCH (units unknown) (unknown) (unknown) (no date) (unknown) (unknown) MCHC 33.8 (units unknown) (unknown) (unknown) (no date) (unknown) (unknown) MCHC 33.9 (units unknown) (unknown) (unknown) (no date) (unknown) (unknown) MCHC (units unknown) (unknown) (unknown) (no date) (unknown) (unknown) MCV 86.5 (units unknown) (unknown) (unknown) (no date) (unknown) (unknown) MCV 86.9 (units unknown) (unknown) (unknown) (no date) (unknown) (unknown) MCV (units unknown) (unknown) (unknown) (no date) (unknown) (unknown) Magnesium 1.2 L (units unknown) (unknown) (unknown) (no date) (unknown) (unknown) Magnesium 1.9 (units unknown) (unknown) (unknown) (no date) (unknown) (unknown) Magnesium (units unknown) (unknown) (unknown) (no date) (unknown) (unknown) Medical History (units unknown) (unknown) (unknown) (no date) (unknown) (unknown) Medications: (units unknown) (unknown) (unknown) (no date) (unknown) (unknown) [place] # (Auto) 1500 H (units unknown) (unknown) (unknown) (no date) (unknown) (unknown) [place] # (Auto) 800 (units unknown) (unknown) (unknown) (no date) (unknown) (unknown) [place] # (Auto) (units unknown) (unknown) (unknown) (no date) (unknown) (unknown) [place] % (Auto) 8.2 (units unknown) (unknown) (unknown) (no date) (unknown) (unknown) [place] % (Auto) 9.2 (units unknown) (unknown) (unknown) (no date) (unknown) (unknown) [place] % (Auto) (units unknown) (unknown) (unknown) (no date) (unknown) (unknown) Mother No significant medical problems (units unknown) (unknown) (unknown) (no date) (unknown) (unknown) NT-Pro-B Natriuret Pep 2810 H (units unknown) (unknown) (unknown) (no date) (unknown) (unknown) NT-Pro-B Natriuret Pep 3710 H (units unknown) (unknown) (unknown) (no date) (unknown) (unknown) NT-Pro-B Natriuret Pep (units unknown) (unknown) (unknown) (no date) (unknown) (unknown) Narrative: (units unknown) (unknown) (unknown) (no date) (unknown) (unknown) Nasal Screen MRSA (PCR) Not detected (units unknown) (unknown) (unknown) (no date) (unknown) (unknown) Nasal Screen MRSA (PCR) (units unknown) (unknown) (unknown) (no date) (unknown) (unknown) Neuropathy of both feet (units unknown) (unknown) (unknown) (no date) (unknown) (unknown) Neut # (Auto) 70801 H (units unknown) (unknown) (unknown) (no date) (unknown) (unknown) Neut # (Auto) 8500 H (units unknown) (unknown) (unknown) (no date) (unknown) (unknown) Neut # (Auto) (units unknown) (unknown) (unknown) (no date) (unknown) (unknown) Neut % (Auto) 81.5 H (units unknown) (unknown) (unknown) (no date) (unknown) (unknown) Neut % (Auto) 85.4 H (units unknown) (unknown) (unknown) (no date) (unknown) (unknown) Neut % (Auto) (units unknown) (unknown) (unknown) (no date) (unknown) (unknown) Objective (units unknown) (unknown) (unknown) (no date) (unknown) (unknown) Other participants/roles: RN (units unknown) (unknown) (unknown) (no date) (unknown) (unknown) Oxygen Delivery Method Room Air (units unknown) (unknown) (unknown) (no date) (unknown) (unknown) Oxygen Delivery Method (units unknown) (unknown) (unknown) (no date) (unknown) (unknown) Oxygen Flow Rate 0 (units unknown) (unknown) (unknown) (no date) (unknown) (unknown) PFSH (units unknown) (unknown) (unknown) (no date) (unknown) (unknown) PT 16.4 H (units unknown) (unknown) (unknown) (no date) (unknown) (unknown) PT 19.2 H (units unknown) (unknown) (unknown) (no date) (unknown) (unknown) PT (units unknown) (unknown) (unknown) (no date) (unknown) (unknown) Parainfluenza 1 (PCR) Not detected (units unknown) (unknown) (unknown) (no date) (unknown) (unknown) Parainfluenza 1 (PCR) (units unknown) (unknown) (unknown) (no date) (unknown) (unknown) Parainfluenza 2 (PCR) Not detected (units unknown) (unknown) (unknown) (no date) (unknown) (unknown) Parainfluenza 2 (PCR) (units unknown) (unknown) (unknown) (no date) (unknown) (unknown) Parainfluenza 3 (PCR) Not detected (units unknown) (unknown) (unknown) (no date) (unknown) (unknown) Parainfluenza 3 (PCR) (units unknown) (unknown) (unknown) (no date) (unknown) (unknown) Parainfluenza 4 (PCR) Not detected (units unknown) (unknown) (unknown) (no date) (unknown) (unknown) Parainfluenza 4 (PCR) (units unknown) (unknown) (unknown) (no date) (unknown) (unknown) Patient Location: ICU (units unknown) (unknown) (unknown) (no date) (unknown) (unknown) Patient: Arvind Brock MR#: [id number] (units unknown) (unknown) (unknown) (no date) (unknown) (unknown) Piperacillin Sod/Tazobactam 100 mls @ 25 mls/hr 01/16/23 01:00 01/16/23 05:34 (units unknown) (unknown) (unknown) (no date) (unknown) (unknown) Plt Count 121 L (units unknown) (unknown) (unknown) (no date) (unknown) (unknown) Plt Count 162 (units unknown) (unknown) (unknown) (no date) (unknown) (unknown) Plt Count (units unknown) (unknown) (unknown) (no date) (unknown) (unknown) Potassium 4.5 (units unknown) (unknown) (unknown) (no date) (unknown) (unknown) Potassium (units unknown) (unknown) (unknown) (no date) (unknown) (unknown) Procalcitonin 0.50 (units unknown) (unknown) (unknown) (no date) (unknown) (unknown) Procalcitonin (units unknown) (unknown) (unknown) (no date) (unknown) (unknown) Protocol (units unknown) (unknown) (unknown) (no date) (unknown) (unknown) Provider location (State): [place] (units unknown) (unknown) (unknown) (no date) (unknown) (unknown) Provider: Judy Alvarado (units unknown) (unknown) (unknown) (no date) (unknown) (unknown) Pulse Oximetry 95 95 (units unknown) (unknown) (unknown) (no date) (unknown) (unknown) Pulse Oximetry 95 96 (units unknown) (unknown) (unknown) (no date) (unknown) (unknown) Pulse Oximetry 95 (units unknown) (unknown) (unknown) (no date) (unknown) (unknown) Pulse Oximetry 96 96 (units unknown) (unknown) (unknown) (no date) (unknown) (unknown) Pulse Oximetry 96 (units unknown) (unknown) (unknown) (no date) (unknown) (unknown) Pulse Oximetry 97 97 (units unknown) (unknown) (unknown) (no date) (unknown) (unknown) Pulse Oximetry 97 (units unknown) (unknown) (unknown) (no date) (unknown) (unknown) Pulse Rate 86 96 H (units unknown) (unknown) (unknown) (no date) (unknown) (unknown) Pulse Rate 86 (units unknown) (unknown) (unknown) (no date) (unknown) (unknown) Pulse Rate 88 98 H (units unknown) (unknown) (unknown) (no date) (unknown) (unknown) Pulse Rate 91 H 102 H (units unknown) (unknown) (unknown) (no date) (unknown) (unknown) Pulse Rate 91 H (units unknown) (unknown) (unknown) (no date) (unknown) (unknown) Pulse Rate 92 H 89 (units unknown) (unknown) (unknown) (no date) (unknown) (unknown) Pulse Rate 92 H (units unknown) (unknown) (unknown) (no date) (unknown) (unknown) Pulse Rate 93 H (units unknown) (unknown) (unknown) (no date) (unknown) (unknown) Pulse Rate 96 H 92 H (units unknown) (unknown) (unknown) (no date) (unknown) (unknown) Pulse Rate 97 H (units unknown) (unknown) (unknown) (no date) (unknown) (unknown) Q6HR PRN Administration (units unknown) (unknown) (unknown) (no date) (unknown) (unknown) Q8H DEIDRA Infusion (units unknown) (unknown) (unknown) (no date) (unknown) (unknown) RBC 4.58 (units unknown) (unknown) (unknown) (no date) (unknown) (unknown) RBC 5.00 (units unknown) (unknown) (unknown) (no date) (unknown) (unknown) RBC (units unknown) (unknown) (unknown) (no date) (unknown) (unknown) RDW 15.3 H (units unknown) (unknown) (unknown) (no date) (unknown) (unknown) RDW (units unknown) (unknown) (unknown) (no date) (unknown) (unknown) RSV (PCR) Negative (units unknown) (unknown) (unknown) (no date) (unknown) (unknown) RSV (PCR) Not detected (units unknown) (unknown) (unknown) (no date) (unknown) (unknown) RSV (PCR) (units unknown) (unknown) (unknown) (no date) (unknown) (unknown) RVR (on Xarelto) who was admitted with Afib/RVR and c/f LLE infection. Patient (units unknown) (unknown) (unknown) (no date) (unknown) (unknown) Respiratory Rate 25 H (units unknown) (unknown) (unknown) (no date) (unknown) (unknown) Respiratory Rate 26 H (units unknown) (unknown) (unknown) (no date) (unknown) (unknown) Respiratory Rate 27 H 26 H (units unknown) (unknown) (unknown) (no date) (unknown) (unknown) Respiratory Rate 27 H 32 H (units unknown) (unknown) (unknown) (no date) (unknown) (unknown) Respiratory Rate 28 H 29 H (units unknown) (unknown) (unknown) (no date) (unknown) (unknown) Respiratory Rate 29 H 31 H (units unknown) (unknown) (unknown) (no date) (unknown) (unknown) Respiratory Rate 31 H 32 H (units unknown) (unknown) (unknown) (no date) (unknown) (unknown) Respiratory Rate 31 H (units unknown) (unknown) (unknown) (no date) (unknown) (unknown) Respiratory Rate 32 H (units unknown) (unknown) (unknown) (no date) (unknown) (unknown) SARS-CoV-2 (PCR) Negative (units unknown) (unknown) (unknown) (no date) (unknown) (unknown) SARS-CoV-2 (PCR) Not detected (units unknown) (unknown) (unknown) (no date) (unknown) (unknown) SARS-CoV-2 (PCR) (units unknown) (unknown) (unknown) (no date) (unknown) (unknown) Sennosides 17.2 mg 01/15/23 21:00 01/15/23 21:43 (units unknown) (unknown) (unknown) (no date) (unknown) (unknown) Sennosides 8.6 Mg Tablet PO Not Given (units unknown) (unknown) (unknown) (no date) (unknown) (unknown) Signed By: (units unknown) (unknown) (unknown) (no date) (unknown) (unknown) Smoking Status: Never smoker (units unknown) (unknown) (unknown) (no date) (unknown) (unknown) Social History (units unknown) (unknown) (unknown) (no date) (unknown) (unknown) Sod 3.375 gm/ Sodium Chloride IV Infused (units unknown) (unknown) (unknown) (no date) (unknown) (unknown) Sodium 128 L (units unknown) (unknown) (unknown) (no date) (unknown) (unknown) Sodium (units unknown) (unknown) (unknown) (no date) (unknown) (unknown) Surgical History (units unknown) (unknown) (unknown) (no date) (unknown) (unknown) TSH 1.23 (units unknown) (unknown) (unknown) (no date) (unknown) (unknown) TSH (units unknown) (unknown) (unknown) (no date) (unknown) (unknown) Teleintensivist Consult Note (units unknown) (unknown) (unknown) (no date) (unknown) (unknown) Temperature 98.6 F (units unknown) (unknown) (unknown) (no date) (unknown) (unknown) Temperature 99.4 F (units unknown) (unknown) (unknown) (no date) (unknown) (unknown) Temperature (units unknown) (unknown) (unknown) (no date) (unknown) (unknown) Total Bilirubin 1.2 (units unknown) (unknown) (unknown) (no date) (unknown) (unknown) Total Bilirubin (units unknown) (unknown) (unknown) (no date) (unknown) (unknown) Total Creatine Kinase 133 (units unknown) (unknown) (unknown) (no date) (unknown) (unknown) Total Creatine Kinase (units unknown) (unknown) (unknown) (no date) (unknown) (unknown) Total Protein 7.7 (units unknown) (unknown) (unknown) (no date) (unknown) (unknown) Total Protein (units unknown) (unknown) (unknown) (no date) (unknown) (unknown) Trade Name Freq PRN Reason Stop Dose Admin (units unknown) (unknown) (unknown) (no date) (unknown) (unknown) Troponin I 0.016 (units unknown) (unknown) (unknown) (no date) (unknown) (unknown) Troponin I 0.248 H* (units unknown) (unknown) (unknown) (no date) (unknown) (unknown) Troponin I 0.251 H* (units unknown) (unknown) (unknown) (no date) (unknown) (unknown) Troponin I (units unknown) (unknown) (unknown) (no date) (unknown) (unknown) VBG Base Excess -4.0 L (units unknown) (unknown) (unknown) (no date) (unknown) (unknown) VBG Base Excess (units unknown) (unknown) (unknown) (no date) (unknown) (unknown) VBG HCO3 21 L (units unknown) (unknown) (unknown) (no date) (unknown) (unknown) VBG HCO3 (units unknown) (unknown) (unknown) (no date) (unknown) (unknown) VBG O2 Saturation 69 L (units unknown) (unknown) (unknown) (no date) (unknown) (unknown) VBG O2 Saturation (units unknown) (unknown) (unknown) (no date) (unknown) (unknown) VBG Total CO2 21 L (units unknown) (unknown) (unknown) (no date) (unknown) (unknown) VBG Total CO2 (units unknown) (unknown) (unknown) (no date) (unknown) (unknown) VBG pCO2 30.5 L (units unknown) (unknown) (unknown) (no date) (unknown) (unknown) VBG pCO2 (units unknown) (unknown) (unknown) (no date) (unknown) (unknown) VBG pH 7.44 H (units unknown) (unknown) (unknown) (no date) (unknown) (unknown) VBG pH (units unknown) (unknown) (unknown) (no date) (unknown) (unknown) VBG pO2 34 L (units unknown) (unknown) (unknown) (no date) (unknown) (unknown) VBG pO2 (units unknown) (unknown) (unknown) (no date) (unknown) (unknown) Visit Medications (administered) (units unknown) (unknown) (unknown) (no date) (unknown) (unknown) Vital Signs (units unknown) (unknown) (unknown) (no date) (unknown) (unknown) WBC 15.9 H (units unknown) (unknown) (unknown) (no date) (unknown) (unknown) WBC 9.9 (units unknown) (unknown) (unknown) (no date) (unknown) (unknown) WBC (units unknown) (unknown) (unknown) (no date) (unknown) (unknown) [Embedded Image Not Available] (units unknown) (unknown) (unknown) (no date) (unknown) (unknown) alcohol intake: never (units unknown) (unknown) (unknown) (no date) (unknown) (unknown) communication: Camera activated (units unknown) (unknown) (unknown) (no date) (unknown) (unknown) household members: spouse (units unknown) (unknown) (unknown) (no date) (unknown) (unknown) insulin glargine 100 unit/mL subcutaneous solution (Lantus U-100 Insulin) 12 (units unknown) (unknown) (unknown) (no date) (unknown) (unknown) lisinopril 5 mg tablet 5 mg PO DAILY 90 days #90 tabs 12/21/22 [Rx Confirmed (units unknown) (unknown) (unknown) (no date) (unknown) (unknown) metformin 500 mg tablet 500 mg PO BID 05/11/20 [History Confirmed 01/15/23] (units unknown) (unknown) (unknown) (no date) (unknown) (unknown) metoprolol succinate 50 mg tablet,extended release 24 hr 50 mg PO BID 90 days (units unknown) (unknown) (unknown) (no date) (unknown) (unknown) occasional episodes up to prakash 120s/130s. Started on Zosyn, cultures sent. (units unknown) (unknown) (unknown) (no date) (unknown) (unknown) occupational status: employed (units unknown) (unknown) (unknown) (no date) (unknown) (unknown) required initiation of Diltiazem drip for HR control, now in the 80s with (units unknown) (unknown) (unknown) (no date) (unknown) (unknown) rivaroxaban 20 mg tablet (Xarelto) 20 mg PO QPM 05/11/20 [History Confirmed (units unknown) (unknown) (unknown) (no date) (unknown) (unknown) unit SUBCUT BEDTIME 05/11/20 [History Confirmed 01/15/23] (units unknown) (unknown) Result panel 451 (unknown) (no date) (unknown) (unknown) (no value) (units unknown) (unknown) (unknown) (no date) (unknown) (unknown) #180 tabs 12/21/22 [Rx Confirmed 01/15/23] (units unknown) (unknown) (unknown) (no date) (unknown) (unknown) (past 8 hours): (units unknown) (unknown) (unknown) (no date) (unknown) (unknown) 00:00 01/16/23 (units unknown) (unknown) (unknown) (no date) (unknown) (unknown) 00:00 (units unknown) (unknown) (unknown) (no date) (unknown) (unknown) 00:09 01/16/23 (units unknown) (unknown) (unknown) (no date) (unknown) (unknown) 00:30 01/16/23 (units unknown) (unknown) (unknown) (no date) (unknown) (unknown) 01:00 01/16/23 (units unknown) (unknown) (unknown) (no date) (unknown) (unknown) 01:00 (units unknown) (unknown) (unknown) (no date) (unknown) (unknown) 01:30 01/16/23 (units unknown) (unknown) (unknown) (no date) (unknown) (unknown) 01:30 (units unknown) (unknown) (unknown) (no date) (unknown) (unknown) [id number] (units unknown) (unknown) (unknown) (no date) (unknown) (unknown) 02:00 01/16/23 (units unknown) (unknown) (unknown) (no date) (unknown) (unknown) 02:15 02:15 02:15 (units unknown) (unknown) (unknown) (no date) (unknown) (unknown) 02:31 01/16/23 (units unknown) (unknown) (unknown) (no date) (unknown) (unknown) 02:31 (units unknown) (unknown) (unknown) (no date) (unknown) (unknown) 02:38 (units unknown) (unknown) (unknown) (no date) (unknown) (unknown) 01/15/23 01/15/23 01/15/23 (units unknown) (unknown) (unknown) (no date) (unknown) (unknown) 01/15/23 01/15/23 01/16/23 (units unknown) (unknown) (unknown) (no date) (unknown) (unknown) 01/15/23 15:25 (units unknown) (unknown) (unknown) (no date) (unknown) (unknown) 01/15/23 (units unknown) (unknown) (unknown) (no date) (unknown) (unknown) 01/15/23] (units unknown) (unknown) (unknown) (no date) (unknown) (unknown) 01/16/23 02:15 (units unknown) (unknown) (unknown) (no date) (unknown) (unknown) 01/16/23 01/16/23 01/16/23 (units unknown) (unknown) (unknown) (no date) (unknown) (unknown) 01/16/23 (units unknown) (unknown) (unknown) (no date) (unknown) (unknown) 03:00 01/16/23 (units unknown) (unknown) (unknown) (no date) (unknown) (unknown) 03:00 (units unknown) (unknown) (unknown) (no date) (unknown) (unknown) 03:30 01/16/23 (units unknown) (unknown) (unknown) (no date) (unknown) (unknown) 04:01 01/16/23 (units unknown) (unknown) (unknown) (no date) (unknown) (unknown) 04:01 (units unknown) (unknown) (unknown) (no date) (unknown) (unknown) 04:30 01/16/23 (units unknown) (unknown) (unknown) (no date) (unknown) (unknown) 04:30 (units unknown) (unknown) (unknown) (no date) (unknown) (unknown) 04:52 (units unknown) (unknown) (unknown) (no date) (unknown) (unknown) 15:25 15:25 15:25 (units unknown) (unknown) (unknown) (no date) (unknown) (unknown) 15:25 15:25 15:49 (units unknown) (unknown) (unknown) (no date) (unknown) (unknown) 18:15 19:10 20:51 (units unknown) (unknown) (unknown) (no date) (unknown) (unknown) 20:51 20:51 20:51 (units unknown) (unknown) (unknown) (no date) (unknown) (unknown) 20:51 21:50 02:15 (units unknown) (unknown) (unknown) (no date) (unknown) (unknown) 2100 DEIDRA Administration (units unknown) (unknown) (unknown) (no date) (unknown) (unknown) 23:00 01/15/23 (units unknown) (unknown) (unknown) (no date) (unknown) (unknown) 23:15 (units unknown) (unknown) (unknown) (no date) (unknown) (unknown) 23:30 01/15/23 (units unknown) (unknown) (unknown) (no date) (unknown) (unknown) 23:30 01/16/23 (units unknown) (unknown) (unknown) (no date) (unknown) (unknown) 67M with a PMH of DM (c/b Neuropathy and 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), HTN, (units unknown) (unknown) (unknown) (no date) (unknown) (unknown) ACHS DEIDRA Administration (units unknown) (unknown) (unknown) (no date) (unknown) (unknown) ALT 29 (units unknown) (unknown) (unknown) (no date) (unknown) (unknown) ALT (units unknown) (unknown) (unknown) (no date) (unknown) (unknown) APTT 33 (units unknown) (unknown) (unknown) (no date) (unknown) (unknown) APTT (units unknown) (unknown) (unknown) (no date) (unknown) (unknown) AST 32 (units unknown) (unknown) (unknown) (no date) (unknown) (unknown) AST (units unknown) (unknown) (unknown) (no date) (unknown) (unknown) Adenovirus (PCR) Not detected (units unknown) (unknown) (unknown) (no date) (unknown) (unknown) Adenovirus (PCR) (units unknown) (unknown) (unknown) (no date) (unknown) (unknown) Afib (units unknown) (unknown) (unknown) (no date) (unknown) (unknown) Age/Sex: 67 / M (units unknown) (unknown) (unknown) (no date) (unknown) (unknown) Albumin 4.1 (units unknown) (unknown) (unknown) (no date) (unknown) (unknown) Albumin (units unknown) (unknown) (unknown) (no date) (unknown) (unknown) Albumin/Globulin Ratio 1.1 (units unknown) (unknown) (unknown) (no date) (unknown) (unknown) Albumin/Globulin Ratio (units unknown) (unknown) (unknown) (no date) (unknown) (unknown) Alkaline Phosphatase 97 (units unknown) (unknown) (unknown) (no date) (unknown) (unknown) Alkaline Phosphatase (units unknown) (unknown) (unknown) (no date) (unknown) (unknown) Awake, alert and conversant. HR irregular but in 90s; BP WNL. Mild tachypnea. (units unknown) (unknown) (unknown) (no date) (unknown) (unknown) B. pertussis DNA (PCR) Not detected (units unknown) (unknown) (unknown) (no date) (unknown) (unknown) B. pertussis DNA (PCR) (units unknown) (unknown) (unknown) (no date) (unknown) (unknown) B.parapertussis DNA PCR Not detected (units unknown) (unknown) (unknown) (no date) (unknown) (unknown) B.parapertussis DNA PCR (units unknown) (unknown) (unknown) (no date) (unknown) (unknown) BEDTIME DEIDRA (units unknown) (unknown) (unknown) (no date) (unknown) (unknown) BUN 24 H (units unknown) (unknown) (unknown) (no date) (unknown) (unknown) BUN (units unknown) (unknown) (unknown) (no date) (unknown) (unknown) BUN/Creatinine Ratio 21.4 (units unknown) (unknown) (unknown) (no date) (unknown) (unknown) BUN/Creatinine Ratio (units unknown) (unknown) (unknown) (no date) (unknown) (unknown) Baso # (Auto) 0 (units unknown) (unknown) (unknown) (no date) (unknown) (unknown) Baso # (Auto) (units unknown) (unknown) (unknown) (no date) (unknown) (unknown) Baso % (Auto) 0.2 (units unknown) (unknown) (unknown) (no date) (unknown) (unknown) Baso % (Auto) 0.3 (units unknown) (unknown) (unknown) (no date) (unknown) (unknown) Baso % (Auto) (units unknown) (unknown) (unknown) (no date) (unknown) (unknown) Blood Pressure 108/68 (units unknown) (unknown) (unknown) (no date) (unknown) (unknown) Blood Pressure 110/55 L (units unknown) (unknown) (unknown) (no date) (unknown) (unknown) Blood Pressure 118/62 (units unknown) (unknown) (unknown) (no date) (unknown) (unknown) Blood Pressure 118/67 (units unknown) (unknown) (unknown) (no date) (unknown) (unknown) Blood Pressure 119/63 (units unknown) (unknown) (unknown) (no date) (unknown) (unknown) Blood Pressure 119/67 124/57 L (units unknown) (unknown) (unknown) (no date) (unknown) (unknown) Blood Pressure 129/58 L (units unknown) (unknown) (unknown) (no date) (unknown) (unknown) Blood Pressure 138/63 122/63 (units unknown) (unknown) (unknown) (no date) (unknown) (unknown) Blood Pressure 144/63 H 132/69 (units unknown) (unknown) (unknown) (no date) (unknown) (unknown) Blood Pressure (units unknown) (unknown) (unknown) (no date) (unknown) (unknown) C-Reactive Protein 12.9 H (units unknown) (unknown) (unknown) (no date) (unknown) (unknown) C-Reactive Protein (units unknown) (unknown) (unknown) (no date) (unknown) (unknown) CK-MB (CK-2) 1.09 (units unknown) (unknown) (unknown) (no date) (unknown) (unknown) CK-MB (CK-2) Rel Index 0.8 L (units unknown) (unknown) (unknown) (no date) (unknown) (unknown) CK-MB (CK-2) Rel Index (units unknown) (unknown) (unknown) (no date) (unknown) (unknown) CK-MB (CK-2) (units unknown) (unknown) (unknown) (no date) (unknown) (unknown) Calcium 8.9 (units unknown) (unknown) (unknown) (no date) (unknown) (unknown) Calcium (units unknown) (unknown) (unknown) (no date) (unknown) (unknown) Carbon Dioxide 19 L (units unknown) (unknown) (unknown) (no date) (unknown) (unknown) Carbon Dioxide (units unknown) (unknown) (unknown) (no date) (unknown) (unknown) Chief complaint: vomiting/shaking/fe trell (units unknown) (unknown) (unknown) (no date) (unknown) (unknown) Chlamy pneumoniae PCR Not detected (units unknown) (unknown) (unknown) (no date) (unknown) (unknown) Chlamy pneumoniae PCR (units unknown) (unknown) (unknown) (no date) (unknown) (unknown) Chloride 96 L (units unknown) (unknown) (unknown) (no date) (unknown) (unknown) Chloride (units unknown) (unknown) (unknown) (no date) (unknown) (unknown) Consent obtained for tele-head nurse care: Yes (units unknown) (unknown) (unknown) (no date) (unknown) (unknown) Consult details (units unknown) (unknown) (unknown) (no date) (unknown) (unknown) Coronavirus 229E (PCR) Not detected (units unknown) (unknown) (unknown) (no date) (unknown) (unknown) Coronavirus 229E (PCR) (units unknown) (unknown) (unknown) (no date) (unknown) (unknown) Coronavirus HKU1 (PCR) Not detected (units unknown) (unknown) (unknown) (no date) (unknown) (unknown) Coronavirus HKU1 (PCR) (units unknown) (unknown) (unknown) (no date) (unknown) (unknown) Coronavirus NL63 (PCR) Not detected (units unknown) (unknown) (unknown) (no date) (unknown) (unknown) Coronavirus NL63 (PCR) (units unknown) (unknown) (unknown) (no date) (unknown) (unknown) Coronavirus OC43 (PCR) Not detected (units unknown) (unknown) (unknown) (no date) (unknown) (unknown) Coronavirus OC43 (PCR) (units unknown) (unknown) (unknown) (no date) (unknown) (unknown) Creatinine 1.12 (units unknown) (unknown) (unknown) (no date) (unknown) (unknown) Creatinine (units unknown) (unknown) (unknown) (no date) (unknown) (unknown) Current Medications (units unknown) (unknown) (unknown) (no date) (unknown) (unknown) : 1955 Acct:[id number] (units unknown) (unknown) (unknown) (no date) (unknown) (unknown) Date of Service: 01/15/23 (units unknown) (unknown) (unknown) (no date) (unknown) (unknown) Diabetes mellitus (units unknown) (unknown) (unknown) (no date) (unknown) (unknown) Diabetes (units unknown) (unknown) (unknown) (no date) (unknown) (unknown) Diphenhydramine 25 Mg Tablet PO 25 mg (units unknown) (unknown) (unknown) (no date) (unknown) (unknown) Diphenhydramine HCl 25 mg 01/15/23 20:24 01/16/23 01:12 (units unknown) (unknown) (unknown) (no date) (unknown) (unknown) ESR 41 H (units unknown) (unknown) (unknown) (no date) (unknown) (unknown) ESR (units unknown) (unknown) (unknown) (no date) (unknown) (unknown) Entero/Rhino (PCR) Not detected (units unknown) (unknown) (unknown) (no date) (unknown) (unknown) Entero/Rhino (PCR) (units unknown) (unknown) (unknown) (no date) (unknown) (unknown) Eos # (Auto) 0 (units unknown) (unknown) (unknown) (no date) (unknown) (unknown) Eos # (Auto) (units unknown) (unknown) (unknown) (no date) (unknown) (unknown) Eos % (Auto) 0.0 L (units unknown) (unknown) (unknown) (no date) (unknown) (unknown) Eos % (Auto) 0.1 L (units unknown) (unknown) (unknown) (no date) (unknown) (unknown) Eos % (Auto) (units unknown) (unknown) (unknown) (no date) (unknown) (unknown) Estimated GFR > 60 (units unknown) (unknown) (unknown) (no date) (unknown) (unknown) Estimated GFR (units unknown) (unknown) (unknown) (no date) (unknown) (unknown) Ethyl Alcohol < 10 (units unknown) (unknown) (unknown) (no date) (unknown) (unknown) Ethyl Alcohol (units unknown) (unknown) (unknown) (no date) (unknown) (unknown) Exam Narrative: (units unknown) (unknown) (unknown) (no date) (unknown) (unknown) Exam (units unknown) (unknown) (unknown) (no date) (unknown) (unknown) Family History (units unknown) (unknown) (unknown) (no date) (unknown) (unknown) Father Smoker (units unknown) (unknown) (unknown) (no date) (unknown) (unknown) FiO2 21 (units unknown) (unknown) (unknown) (no date) (unknown) (unknown) FiO2 (units unknown) (unknown) (unknown) (no date) (unknown) (unknown) Free T4 1.26 (units unknown) (unknown) (unknown) (no date) (unknown) (unknown) Free T4 (units unknown) (unknown) (unknown) (no date) (unknown) (unknown) Generic Name Dose Route Start Last Admin (units unknown) (unknown) (unknown) (no date) (unknown) (unknown) Globulin 3.6 (units unknown) (unknown) (unknown) (no date) (unknown) (unknown) Globulin (units unknown) (unknown) (unknown) (no date) (unknown) (unknown) Glucose 252 H (units unknown) (unknown) (unknown) (no date) (unknown) (unknown) Glucose (units unknown) (unknown) (unknown) (no date) (unknown) (unknown) HLD and Afib with RVR (on Xarelto) who was admitted with Afib/RVR and c/f LLE (units unknown) (unknown) (unknown) (no date) (unknown) (unknown) Hct 39.8 L (units unknown) (unknown) (unknown) (no date) (unknown) (unknown) Hct 43.2 (units unknown) (unknown) (unknown) (no date) (unknown) (unknown) Hct (units unknown) (unknown) (unknown) (no date) (unknown) (unknown) Heart attack (units unknown) (unknown) (unknown) (no date) (unknown) (unknown) Hemoglobin A1c Cancelled (units unknown) (unknown) (unknown) (no date) (unknown) (unknown) Hemoglobin A1c (units unknown) (unknown) (unknown) (no date) (unknown) (unknown) Hgb 13.5 (units unknown) (unknown) (unknown) (no date) (unknown) (unknown) Hgb 14.6 (units unknown) (unknown) (unknown) (no date) (unknown) (unknown) Hgb (units unknown) (unknown) (unknown) (no date) (unknown) (unknown) History of Present Illness (units unknown) (unknown) (unknown) (no date) (unknown) (unknown) History of hernia repair (units unknown) (unknown) (unknown) (no date) (unknown) (unknown) History of neck surgery (units unknown) (unknown) (unknown) (no date) (unknown) (unknown) Home Medications (units unknown) (unknown) (unknown) (no date) (unknown) (unknown) Human Metapneumovir PCR Not detected (units unknown) (unknown) (unknown) (no date) (unknown) (unknown) Human Metapneumovir PCR (units unknown) (unknown) (unknown) (no date) (unknown) (unknown) Hyperlipidemia (units unknown) (unknown) (unknown) (no date) (unknown) (unknown) Hypertension (units unknown) (unknown) (unknown) (no date) (unknown) (unknown) IF [place]ER[place] ACTIVATED, patient seen via real-time interactive audiovisual (units unknown) (unknown) (unknown) (no date) (unknown) (unknown) INR 1.4 H (units unknown) (unknown) (unknown) (no date) (unknown) (unknown) INR 1.7 H (units unknown) (unknown) (unknown) (no date) (unknown) (unknown) INR (units unknown) (unknown) (unknown) (no date) (unknown) (unknown) Influenza A (RT-PCR) Flu a negative (units unknown) (unknown) (unknown) (no date) (unknown) (unknown) Influenza A (RT-PCR) (units unknown) (unknown) (unknown) (no date) (unknown) (unknown) Influenza B (RT-PCR) Flu b negative (units unknown) (unknown) (unknown) (no date) (unknown) (unknown) Influenza B (RT-PCR) (units unknown) (unknown) (unknown) (no date) (unknown) (unknown) Influenza Type A (PCR) Not detected (units unknown) (unknown) (unknown) (no date) (unknown) (unknown) Influenza Type A (PCR) (units unknown) (unknown) (unknown) (no date) (unknown) (unknown) Influenza Type B (PCR) Not detected (units unknown) (unknown) (unknown) (no date) (unknown) (unknown) Influenza Type B (PCR) (units unknown) (unknown) (unknown) (no date) (unknown) (unknown) Insulin Glargine 100 Unit/Ml 3ml Pen SUBCUT 12 unit (units unknown) (unknown) (unknown) (no date) (unknown) (unknown) Insulin Glargine 12 unit 01/15/23 21:00 01/15/23 21:37 (units unknown) (unknown) (unknown) (no date) (unknown) (unknown) Insulin Human Lispro 0 unit 01/15/23 21:00 01/15/23 21:36 (units unknown) (unknown) (unknown) (no date) (unknown) (unknown) Insulin Lispro 100 Unit/Ml 3ml Vial SUBCUT 2 unit (units unknown) (unknown) (unknown) (no date) (unknown) (unknown) [address] [address] (units unknown) (unknown) (unknown) (no date) (unknown) (unknown) Itching (units unknown) (unknown) (unknown) (no date) (unknown) (unknown) Laboratory Results - last 24 hr (units unknown) (unknown) (unknown) (no date) (unknown) (unknown) Labs (units unknown) (unknown) (unknown) (no date) (unknown) (unknown) Labs: (units unknown) (unknown) (unknown) (no date) (unknown) (unknown) Lactate 1.0 (units unknown) (unknown) (unknown) (no date) (unknown) (unknown) Lactate 1.4 (units unknown) (unknown) (unknown) (no date) (unknown) (unknown) Lactate 3.2 H (units unknown) (unknown) (unknown) (no date) (unknown) (unknown) Lactate (units unknown) (unknown) (unknown) (no date) (unknown) (unknown) Lipase 367 H (units unknown) (unknown) (unknown) (no date) (unknown) (unknown) Lipase (units unknown) (unknown) (unknown) (no date) (unknown) (unknown) Lymph # (Auto) 1400 (units unknown) (unknown) (unknown) (no date) (unknown) (unknown) Lymph # (Auto) 600 L (units unknown) (unknown) (unknown) (no date) (unknown) (unknown) Lymph # (Auto) (units unknown) (unknown) (unknown) (no date) (unknown) (unknown) Lymph % (Auto) 6.1 L (units unknown) (unknown) (unknown) (no date) (unknown) (unknown) Lymph % (Auto) 9.0 L (units unknown) (unknown) (unknown) (no date) (unknown) (unknown) Lymph % (Auto) (units unknown) (unknown) (unknown) (no date) (unknown) (unknown) M. pneumoniae (PCR) Not detected (units unknown) (unknown) (unknown) (no date) (unknown) (unknown) M. pneumoniae (PCR) (units unknown) (unknown) (unknown) (no date) (unknown) (unknown) MCH 29.3 (units unknown) (unknown) (unknown) (no date) (unknown) (unknown) MCH 29.5 (units unknown) (unknown) (unknown) (no date) (unknown) (unknown) MCH (units unknown) (unknown) (unknown) (no date) (unknown) (unknown) MCHC 33.8 (units unknown) (unknown) (unknown) (no date) (unknown) (unknown) MCHC 33.9 (units unknown) (unknown) (unknown) (no date) (unknown) (unknown) MCHC (units unknown) (unknown) (unknown) (no date) (unknown) (unknown) MCV 86.5 (units unknown) (unknown) (unknown) (no date) (unknown) (unknown) MCV 86.9 (units unknown) (unknown) (unknown) (no date) (unknown) (unknown) MCV (units unknown) (unknown) (unknown) (no date) (unknown) (unknown) Magnesium 1.2 L (units unknown) (unknown) (unknown) (no date) (unknown) (unknown) Magnesium 1.9 (units unknown) (unknown) (unknown) (no date) (unknown) (unknown) Magnesium (units unknown) (unknown) (unknown) (no date) (unknown) (unknown) Medical History (units unknown) (unknown) (unknown) (no date) (unknown) (unknown) Medications: (units unknown) (unknown) (unknown) (no date) (unknown) (unknown) [place] # (Auto) 1500 H (units unknown) (unknown) (unknown) (no date) (unknown) (unknown) [place] # (Auto) 800 (units unknown) (unknown) (unknown) (no date) (unknown) (unknown) [place] # (Auto) (units unknown) (unknown) (unknown) (no date) (unknown) (unknown) [place] % (Auto) 8.2 (units unknown) (unknown) (unknown) (no date) (unknown) (unknown) [place] % (Auto) 9.2 (units unknown) (unknown) (unknown) (no date) (unknown) (unknown) [place] % (Auto) (units unknown) (unknown) (unknown) (no date) (unknown) (unknown) Mother No significant medical problems (units unknown) (unknown) (unknown) (no date) (unknown) (unknown) NT-Pro-B Natriuret Pep 2810 H (units unknown) (unknown) (unknown) (no date) (unknown) (unknown) NT-Pro-B Natriuret Pep 3710 H (units unknown) (unknown) (unknown) (no date) (unknown) (unknown) NT-Pro-B Natriuret Pep (units unknown) (unknown) (unknown) (no date) (unknown) (unknown) Narrative (units unknown) (unknown) (unknown) (no date) (unknown) (unknown) Narrative: (units unknown) (unknown) (unknown) (no date) (unknown) (unknown) Nasal Screen MRSA (PCR) Not detected (units unknown) (unknown) (unknown) (no date) (unknown) (unknown) Nasal Screen MRSA (PCR) (units unknown) (unknown) (unknown) (no date) (unknown) (unknown) Neuropathy of both feet (units unknown) (unknown) (unknown) (no date) (unknown) (unknown) Neut # (Auto) 96901 H (units unknown) (unknown) (unknown) (no date) (unknown) (unknown) Neut # (Auto) 8500 H (units unknown) (unknown) (unknown) (no date) (unknown) (unknown) Neut # (Auto) (units unknown) (unknown) (unknown) (no date) (unknown) (unknown) Neut % (Auto) 81.5 H (units unknown) (unknown) (unknown) (no date) (unknown) (unknown) Neut % (Auto) 85.4 H (units unknown) (unknown) (unknown) (no date) (unknown) (unknown) Neut % (Auto) (units unknown) (unknown) (unknown) (no date) (unknown) (unknown) Objective (units unknown) (unknown) (unknown) (no date) (unknown) (unknown) Other participants/roles: RN (units unknown) (unknown) (unknown) (no date) (unknown) (unknown) Oxygen Delivery Method Room Air (units unknown) (unknown) (unknown) (no date) (unknown) (unknown) Oxygen Delivery Method (units unknown) (unknown) (unknown) (no date) (unknown) (unknown) Oxygen Flow Rate 0 (units unknown) (unknown) (unknown) (no date) (unknown) (unknown) PFSH (units unknown) (unknown) (unknown) (no date) (unknown) (unknown) PT 16.4 H (units unknown) (unknown) (unknown) (no date) (unknown) (unknown) PT 19.2 H (units unknown) (unknown) (unknown) (no date) (unknown) (unknown) PT (units unknown) (unknown) (unknown) (no date) (unknown) (unknown) Parainfluenza 1 (PCR) Not detected (units unknown) (unknown) (unknown) (no date) (unknown) (unknown) Parainfluenza 1 (PCR) (units unknown) (unknown) (unknown) (no date) (unknown) (unknown) Parainfluenza 2 (PCR) Not detected (units unknown) (unknown) (unknown) (no date) (unknown) (unknown) Parainfluenza 2 (PCR) (units unknown) (unknown) (unknown) (no date) (unknown) (unknown) Parainfluenza 3 (PCR) Not detected (units unknown) (unknown) (unknown) (no date) (unknown) (unknown) Parainfluenza 3 (PCR) (units unknown) (unknown) (unknown) (no date) (unknown) (unknown) Parainfluenza 4 (PCR) Not detected (units unknown) (unknown) (unknown) (no date) (unknown) (unknown) Parainfluenza 4 (PCR) (units unknown) (unknown) (unknown) (no date) (unknown) (unknown) Patient Location: ICU (units unknown) (unknown) (unknown) (no date) (unknown) (unknown) Patient: Arvind Brock MR#: [id number] (units unknown) (unknown) (unknown) (no date) (unknown) (unknown) Piperacillin Sod/Tazobactam 100 mls @ 25 mls/hr 01/16/23 01:00 01/16/23 05:34 (units unknown) (unknown) (unknown) (no date) (unknown) (unknown) Plt Count 121 L (units unknown) (unknown) (unknown) (no date) (unknown) (unknown) Plt Count 162 (units unknown) (unknown) (unknown) (no date) (unknown) (unknown) Plt Count (units unknown) (unknown) (unknown) (no date) (unknown) (unknown) Potassium 4.5 (units unknown) (unknown) (unknown) (no date) (unknown) (unknown) Potassium (units unknown) (unknown) (unknown) (no date) (unknown) (unknown) Procalcitonin 0.50 (units unknown) (unknown) (unknown) (no date) (unknown) (unknown) Procalcitonin (units unknown) (unknown) (unknown) (no date) (unknown) (unknown) Protocol (units unknown) (unknown) (unknown) (no date) (unknown) (unknown) Provider location (State): [place] (units unknown) (unknown) (unknown) (no date) (unknown) (unknown) Provider: Judy Alvarado (units unknown) (unknown) (unknown) (no date) (unknown) (unknown) Pulse Oximetry 95 95 (units unknown) (unknown) (unknown) (no date) (unknown) (unknown) Pulse Oximetry 95 96 (units unknown) (unknown) (unknown) (no date) (unknown) (unknown) Pulse Oximetry 95 (units unknown) (unknown) (unknown) (no date) (unknown) (unknown) Pulse Oximetry 96 96 (units unknown) (unknown) (unknown) (no date) (unknown) (unknown) Pulse Oximetry 96 (units unknown) (unknown) (unknown) (no date) (unknown) (unknown) Pulse Oximetry 97 97 (units unknown) (unknown) (unknown) (no date) (unknown) (unknown) Pulse Oximetry 97 (units unknown) (unknown) (unknown) (no date) (unknown) (unknown) Pulse Rate 86 96 H (units unknown) (unknown) (unknown) (no date) (unknown) (unknown) Pulse Rate 86 (units unknown) (unknown) (unknown) (no date) (unknown) (unknown) Pulse Rate 88 98 H (units unknown) (unknown) (unknown) (no date) (unknown) (unknown) Pulse Rate 91 H 102 H (units unknown) (unknown) (unknown) (no date) (unknown) (unknown) Pulse Rate 91 H (units unknown) (unknown) (unknown) (no date) (unknown) (unknown) Pulse Rate 92 H 89 (units unknown) (unknown) (unknown) (no date) (unknown) (unknown) Pulse Rate 92 H (units unknown) (unknown) (unknown) (no date) (unknown) (unknown) Pulse Rate 93 H (units unknown) (unknown) (unknown) (no date) (unknown) (unknown) Pulse Rate 96 H 92 H (units unknown) (unknown) (unknown) (no date) (unknown) (unknown) Pulse Rate 97 H (units unknown) (unknown) (unknown) (no date) (unknown) (unknown) Q6HR PRN Administration (units unknown) (unknown) (unknown) (no date) (unknown) (unknown) Q8H DEIDRA Infusion (units unknown) (unknown) (unknown) (no date) (unknown) (unknown) RBC 4.58 (units unknown) (unknown) (unknown) (no date) (unknown) (unknown) RBC 5.00 (units unknown) (unknown) (unknown) (no date) (unknown) (unknown) RBC (units unknown) (unknown) (unknown) (no date) (unknown) (unknown) RDW 15.3 H (units unknown) (unknown) (unknown) (no date) (unknown) (unknown) RDW (units unknown) (unknown) (unknown) (no date) (unknown) (unknown) RSV (PCR) Negative (units unknown) (unknown) (unknown) (no date) (unknown) (unknown) RSV (PCR) Not detected (units unknown) (unknown) (unknown) (no date) (unknown) (unknown) RSV (PCR) (units unknown) (unknown) (unknown) (no date) (unknown) (unknown) Respiratory Rate 25 H (units unknown) (unknown) (unknown) (no date) (unknown) (unknown) Respiratory Rate 26 H (units unknown) (unknown) (unknown) (no date) (unknown) (unknown) Respiratory Rate 27 H 26 H (units unknown) (unknown) (unknown) (no date) (unknown) (unknown) Respiratory Rate 27 H 32 H (units unknown) (unknown) (unknown) (no date) (unknown) (unknown) Respiratory Rate 28 H 29 H (units unknown) (unknown) (unknown) (no date) (unknown) (unknown) Respiratory Rate 29 H 31 H (units unknown) (unknown) (unknown) (no date) (unknown) (unknown) Respiratory Rate 31 H 32 H (units unknown) (unknown) (unknown) (no date) (unknown) (unknown) Respiratory Rate 31 H (units unknown) (unknown) (unknown) (no date) (unknown) (unknown) Respiratory Rate 32 H (units unknown) (unknown) (unknown) (no date) (unknown) (unknown) SARS-CoV-2 (PCR) Negative (units unknown) (unknown) (unknown) (no date) (unknown) (unknown) SARS-CoV-2 (PCR) Not detected (units unknown) (unknown) (unknown) (no date) (unknown) (unknown) SARS-CoV-2 (PCR) (units unknown) (unknown) (unknown) (no date) (unknown) (unknown) Sennosides 17.2 mg 01/15/23 21:00 01/15/23 21:43 (units unknown) (unknown) (unknown) (no date) (unknown) (unknown) Sennosides 8.6 Mg Tablet PO Not Given (units unknown) (unknown) (unknown) (no date) (unknown) (unknown) Signed By: (units unknown) (unknown) (unknown) (no date) (unknown) (unknown) Smoking Status: Never smoker (units unknown) (unknown) (unknown) (no date) (unknown) (unknown) Social History (units unknown) (unknown) (unknown) (no date) (unknown) (unknown) Sod 3.375 gm/ Sodium Chloride IV Infused (units unknown) (unknown) (unknown) (no date) (unknown) (unknown) Sodium 128 L (units unknown) (unknown) (unknown) (no date) (unknown) (unknown) Sodium (units unknown) (unknown) (unknown) (no date) (unknown) (unknown) Surgical History (units unknown) (unknown) (unknown) (no date) (unknown) (unknown) TSH 1.23 (units unknown) (unknown) (unknown) (no date) (unknown) (unknown) TSH (units unknown) (unknown) (unknown) (no date) (unknown) (unknown) Teleintensivist Consult Note (units unknown) (unknown) (unknown) (no date) (unknown) (unknown) Temperature 98.6 F (units unknown) (unknown) (unknown) (no date) (unknown) (unknown) Temperature 99.4 F (units unknown) (unknown) (unknown) (no date) (unknown) (unknown) Temperature (units unknown) (unknown) (unknown) (no date) (unknown) (unknown) Total Bilirubin 1.2 (units unknown) (unknown) (unknown) (no date) (unknown) (unknown) Total Bilirubin (units unknown) (unknown) (unknown) (no date) (unknown) (unknown) Total Creatine Kinase 133 (units unknown) (unknown) (unknown) (no date) (unknown) (unknown) Total Creatine Kinase (units unknown) (unknown) (unknown) (no date) (unknown) (unknown) Total Protein 7.7 (units unknown) (unknown) (unknown) (no date) (unknown) (unknown) Total Protein (units unknown) (unknown) (unknown) (no date) (unknown) (unknown) Trade Name Freq PRN Reason Stop Dose Admin (units unknown) (unknown) (unknown) (no date) (unknown) (unknown) Troponin I 0.016 (units unknown) (unknown) (unknown) (no date) (unknown) (unknown) Troponin I 0.248 H* (units unknown) (unknown) (unknown) (no date) (unknown) (unknown) Troponin I 0.251 H* (units unknown) (unknown) (unknown) (no date) (unknown) (unknown) Troponin I (units unknown) (unknown) (unknown) (no date) (unknown) (unknown) Unable to view LLE well but obvious erythema notable. (units unknown) (unknown) (unknown) (no date) (unknown) (unknown) VBG Base Excess -4.0 L (units unknown) (unknown) (unknown) (no date) (unknown) (unknown) VBG Base Excess (units unknown) (unknown) (unknown) (no date) (unknown) (unknown) VBG HCO3 21 L (units unknown) (unknown) (unknown) (no date) (unknown) (unknown) VBG HCO3 (units unknown) (unknown) (unknown) (no date) (unknown) (unknown) VBG O2 Saturation 69 L (units unknown) (unknown) (unknown) (no date) (unknown) (unknown) VBG O2 Saturation (units unknown) (unknown) (unknown) (no date) (unknown) (unknown) VBG Total CO2 21 L (units unknown) (unknown) (unknown) (no date) (unknown) (unknown) VBG Total CO2 (units unknown) (unknown) (unknown) (no date) (unknown) (unknown) VBG pCO2 30.5 L (units unknown) (unknown) (unknown) (no date) (unknown) (unknown) VBG pCO2 (units unknown) (unknown) (unknown) (no date) (unknown) (unknown) VBG pH 7.44 H (units unknown) (unknown) (unknown) (no date) (unknown) (unknown) VBG pH (units unknown) (unknown) (unknown) (no date) (unknown) (unknown) VBG pO2 34 L (units unknown) (unknown) (unknown) (no date) (unknown) (unknown) VBG pO2 (units unknown) (unknown) (unknown) (no date) (unknown) (unknown) Visit Medications (administered) (units unknown) (unknown) (unknown) (no date) (unknown) (unknown) Vital Signs (units unknown) (unknown) (unknown) (no date) (unknown) (unknown) WBC 15.9 H (units unknown) (unknown) (unknown) (no date) (unknown) (unknown) WBC 9.9 (units unknown) (unknown) (unknown) (no date) (unknown) (unknown) WBC (units unknown) (unknown) (unknown) (no date) (unknown) (unknown) Zosyn, cultures sent. Patient also notes a 'scratchy' throat for 1 week but (units unknown) (unknown) (unknown) (no date) (unknown) (unknown) [Embedded Image Not Available] (units unknown) (unknown) (unknown) (no date) (unknown) (unknown) alcohol intake: never (units unknown) (unknown) (unknown) (no date) (unknown) (unknown) communication: Camera activated (units unknown) (unknown) (unknown) (no date) (unknown) (unknown) control, now in the 80s with occasional episodes up to the 120s/130s. Started on (units unknown) (unknown) (unknown) (no date) (unknown) (unknown) household members: spouse (units unknown) (unknown) (unknown) (no date) (unknown) (unknown) infection. At home was noted to have several days of fevers as well as LLE (units unknown) (unknown) (unknown) (no date) (unknown) (unknown) insulin glargine 100 unit/mL subcutaneous solution (Lantus U-100 Insulin) 12 (units unknown) (unknown) (unknown) (no date) (unknown) (unknown) lisinopril 5 mg tablet 5 mg PO DAILY 90 days #90 tabs 12/21/22 [Rx Confirmed (units unknown) (unknown) (unknown) (no date) (unknown) (unknown) metformin 500 mg tablet 500 mg PO BID 05/11/20 [History Confirmed 01/15/23] (units unknown) (unknown) (unknown) (no date) (unknown) (unknown) metoprolol succinate 50 mg tablet,extended release 24 hr 50 mg PO BID 90 days (units unknown) (unknown) (unknown) (no date) (unknown) (unknown) occupational status: employed (units unknown) (unknown) (unknown) (no date) (unknown) (unknown) redness/swelling, no pain. Patient required initiation of Diltiazem drip for HR (units unknown) (unknown) (unknown) (no date) (unknown) (unknown) reports no pain, able to swallow liquids/solids. (units unknown) (unknown) (unknown) (no date) (unknown) (unknown) rivaroxaban 20 mg tablet (Xarelto) 20 mg PO QPM 05/11/20 [History Confirmed (units unknown) (unknown) (unknown) (no date) (unknown) (unknown) unit SUBCUT BEDTIME 05/11/20 [History Confirmed 01/15/23] (units unknown) (unknown) Result panel 452 (unknown) (no date) (unknown) (unknown) > 60 ml/min (unknown) (unknown) (no date) (unknown) (unknown) > 60 ml/min (unknown) (unknown) (no date) (unknown) (unknown) 0.99 mg/dl (unknown) (unknown) (no date) (unknown) (unknown) 1.1 (units unknown) (unknown) (unknown) (no date) (unknown) (unknown) 1.2 mg/dl (unknown) (unknown) (no date) (unknown) (unknown) 130 mmol/l (unknown) (unknown) (no date) (unknown) (unknown) 156 mg/dl (unknown) (unknown) (no date) (unknown) (unknown) 156 mg/dl (unknown) (unknown) (no date) (unknown) (unknown) 2.9 g/dl (unknown) (unknown) (no date) (unknown) (unknown) 20 mmol/l (unknown) (unknown) (no date) (unknown) (unknown) 22 mg/dl (unknown) (unknown) (no date) (unknown) (unknown) 22.2 (units unknown) (unknown) (unknown) (no date) (unknown) (unknown) 24 iu/l (unknown) (unknown) (no date) (unknown) (unknown) 3.1 g/dl (unknown) (unknown) (no date) (unknown) (unknown) 39 iu/l (unknown) (unknown) (no date) (unknown) (unknown) 39 iu/l (unknown) (unknown) (no date) (unknown) (unknown) 4.2 mmol/l (unknown) (unknown) (no date) (unknown) (unknown) 4.2 mmol/l (unknown) (unknown) (no date) (unknown) (unknown) 6.0 g/dl (unknown) (unknown) (no date) (unknown) (unknown) 67 u/l (unknown) (unknown) (no date) (unknown) (unknown) 7.8 mg/dl (unknown) (unknown) (no date) (unknown) (unknown) 99 mmol/l (unknown) Result panel 453 (unknown) (no date) (unknown) (unknown) (no value) (units unknown) (unknown) (unknown) (no date) (unknown) (unknown) #180 tabs 12/21/22 [Rx Confirmed 01/15/23] (units unknown) (unknown) (unknown) (no date) (unknown) (unknown) (1) Atrial fibrillation with RVR: (units unknown) (unknown) (unknown) (no date) (unknown) (unknown) (2) Sepsis: (units unknown) (unknown) (unknown) (no date) (unknown) (unknown) (3) Cellulitis of left leg: (units unknown) (unknown) (unknown) (no date) (unknown) (unknown) (4) Elevated troponin: (units unknown) (unknown) (unknown) (no date) (unknown) (unknown) (5) Hyperglycemia: (units unknown) (unknown) (unknown) (no date) (unknown) (unknown) (6) Hyponatremia: (units unknown) (unknown) (unknown) (no date) (unknown) (unknown) (7) Thrombocytopenia: (units unknown) (unknown) (unknown) (no date) (unknown) (unknown) (past 8 hours): (units unknown) (unknown) (unknown) (no date) (unknown) (unknown) - Consider diuresis today. Monitor electrolytes/Cr/UOP (units unknown) (unknown) (unknown) (no date) (unknown) (unknown) - Consider trending inflammatory markers (units unknown) (unknown) (unknown) (no date) (unknown) (unknown) - Continue Xarelto. (units unknown) (unknown) (unknown) (no date) (unknown) (unknown) - Continue Zosyn. MRSA negative. (units unknown) (unknown) (unknown) (no date) (unknown) (unknown) - DC mIVF given e/o pulmonary edema. (units unknown) (unknown) (unknown) (no date) (unknown) (unknown) - Follow up blood cultures (units unknown) (unknown) (unknown) (no date) (unknown) (unknown) - Lantus 12u QHS, SSI ordered. Adjust insulin regimen as needed, BG goal < 180. (units unknown) (unknown) (unknown) (no date) (unknown) (unknown) - Monitor platelets (units unknown) (unknown) (unknown) (no date) (unknown) (unknown) - Obtain XRs of LLE for further assessment of Osteo given histry and elevated (units unknown) (unknown) (unknown) (no date) (unknown) (unknown) - Start home Metop (50 BID), hold Dilt drip (units unknown) (unknown) (unknown) (no date) (unknown) (unknown) - US LLE (would consider arterial/venous eval) (units unknown) (unknown) (unknown) (no date) (unknown) (unknown) - Will consider TTE (units unknown) (unknown) (unknown) (no date) (unknown) (unknown) 00:00 01/16/23 (units unknown) (unknown) (unknown) (no date) (unknown) (unknown) 00:00 (units unknown) (unknown) (unknown) (no date) (unknown) (unknown) 00:09 01/16/23 (units unknown) (unknown) (unknown) (no date) (unknown) (unknown) 00:30 01/16/23 (units unknown) (unknown) (unknown) (no date) (unknown) (unknown) 01:00 01/16/23 (units unknown) (unknown) (unknown) (no date) (unknown) (unknown) 01:00 (units unknown) (unknown) (unknown) (no date) (unknown) (unknown) 01:30 01/16/23 (units unknown) (unknown) (unknown) (no date) (unknown) (unknown) 01:30 (units unknown) (unknown) (unknown) (no date) (unknown) (unknown) [id number] (units unknown) (unknown) (unknown) (no date) (unknown) (unknown) 02:00 01/16/23 (units unknown) (unknown) (unknown) (no date) (unknown) (unknown) 02:15 02:15 02:15 (units unknown) (unknown) (unknown) (no date) (unknown) (unknown) 02:31 01/16/23 (units unknown) (unknown) (unknown) (no date) (unknown) (unknown) 02:31 (units unknown) (unknown) (unknown) (no date) (unknown) (unknown) 02:38 (units unknown) (unknown) (unknown) (no date) (unknown) (unknown) 01/15/23 01/15/23 01/15/23 (units unknown) (unknown) (unknown) (no date) (unknown) (unknown) 01/15/23 01/15/23 01/16/23 (units unknown) (unknown) (unknown) (no date) (unknown) (unknown) 01/15/23 15:25 (units unknown) (unknown) (unknown) (no date) (unknown) (unknown) 01/15/23 (units unknown) (unknown) (unknown) (no date) (unknown) (unknown) 01/15/23] (units unknown) (unknown) (unknown) (no date) (unknown) (unknown) 01/16/23 02:15 (units unknown) (unknown) (unknown) (no date) (unknown) (unknown) 01/16/23 01/16/23 01/16/23 (units unknown) (unknown) (unknown) (no date) (unknown) (unknown) 01/16/23 0653 (units unknown) (unknown) (unknown) (no date) (unknown) (unknown) 01/16/23 (units unknown) (unknown) (unknown) (no date) (unknown) (unknown) 03:00 01/16/23 (units unknown) (unknown) (unknown) (no date) (unknown) (unknown) 03:00 (units unknown) (unknown) (unknown) (no date) (unknown) (unknown) 03:30 01/16/23 (units unknown) (unknown) (unknown) (no date) (unknown) (unknown) 04:01 01/16/23 (units unknown) (unknown) (unknown) (no date) (unknown) (unknown) 04:01 (units unknown) (unknown) (unknown) (no date) (unknown) (unknown) 04:30 01/16/23 (units unknown) (unknown) (unknown) (no date) (unknown) (unknown) 04:30 (units unknown) (unknown) (unknown) (no date) (unknown) (unknown) 04:52 (units unknown) (unknown) (unknown) (no date) (unknown) (unknown) 15:25 15:25 15:25 (units unknown) (unknown) (unknown) (no date) (unknown) (unknown) 15:25 15:25 15:49 (units unknown) (unknown) (unknown) (no date) (unknown) (unknown) 18:15 19:10 20:51 (units unknown) (unknown) (unknown) (no date) (unknown) (unknown) 20:51 20:51 20:51 (units unknown) (unknown) (unknown) (no date) (unknown) (unknown) 20:51 21:50 02:15 (units unknown) (unknown) (unknown) (no date) (unknown) (unknown) 2100 [facility] Administration (units unknown) (unknown) (unknown) (no date) (unknown) (unknown) 23:00 01/15/23 (units unknown) (unknown) (unknown) (no date) (unknown) (unknown) 23:15 (units unknown) (unknown) (unknown) (no date) (unknown) (unknown) 23:30 01/15/23 (units unknown) (unknown) (unknown) (no date) (unknown) (unknown) 23:30 01/16/23 (units unknown) (unknown) (unknown) (no date) (unknown) (unknown) 67M with a PMH of DM (c/b Neuropathy and 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), HTN, (units unknown) (unknown) (unknown) (no date) (unknown) (unknown) ACHS [facility] Administration (units unknown) (unknown) (unknown) (no date) (unknown) (unknown) ALT 29 (units unknown) (unknown) (unknown) (no date) (unknown) (unknown) ALT (units unknown) (unknown) (unknown) (no date) (unknown) (unknown) APTT 33 (units unknown) (unknown) (unknown) (no date) (unknown) (unknown) APTT (units unknown) (unknown) (unknown) (no date) (unknown) (unknown) AST 32 (units unknown) (unknown) (unknown) (no date) (unknown) (unknown) AST (units unknown) (unknown) (unknown) (no date) (unknown) (unknown) Adenovirus (PCR) Not detected (units unknown) (unknown) (unknown) (no date) (unknown) (unknown) Adenovirus (PCR) (units unknown) (unknown) (unknown) (no date) (unknown) (unknown) Afib (units unknown) (unknown) (unknown) (no date) (unknown) (unknown) Age/Sex: 67 / M (units unknown) (unknown) (unknown) (no date) (unknown) (unknown) Albumin 4.1 (units unknown) (unknown) (unknown) (no date) (unknown) (unknown) Albumin (units unknown) (unknown) (unknown) (no date) (unknown) (unknown) Albumin/Globulin Ratio 1.1 (units unknown) (unknown) (unknown) (no date) (unknown) (unknown) Albumin/Globulin Ratio (units unknown) (unknown) (unknown) (no date) (unknown) (unknown) Alkaline Phosphatase 97 (units unknown) (unknown) (unknown) (no date) (unknown) (unknown) Alkaline Phosphatase (units unknown) (unknown) (unknown) (no date) (unknown) (unknown) Assessment + Plan narrative: (units unknown) (unknown) (unknown) (no date) (unknown) (unknown) Assessment + Plan (units unknown) (unknown) (unknown) (no date) (unknown) (unknown) Assessment and plan (units unknown) (unknown) (unknown) (no date) (unknown) (unknown) Awake, alert and conversant. HR irregular but in 90s; BP WNL. Mild tachypnea. (units unknown) (unknown) (unknown) (no date) (unknown) (unknown) B. pertussis DNA (PCR) Not detected (units unknown) (unknown) (unknown) (no date) (unknown) (unknown) B. pertussis DNA (PCR) (units unknown) (unknown) (unknown) (no date) (unknown) (unknown) B.parapertussis DNA PCR Not detected (units unknown) (unknown) (unknown) (no date) (unknown) (unknown) B.parapertussis DNA PCR (units unknown) (unknown) (unknown) (no date) (unknown) (unknown) BEDTIME [facility] (units unknown) (unknown) (unknown) (no date) (unknown) (unknown) BUN 24 H (units unknown) (unknown) (unknown) (no date) (unknown) (unknown) BUN (units unknown) (unknown) (unknown) (no date) (unknown) (unknown) BUN/Creatinine Ratio 21.4 (units unknown) (unknown) (unknown) (no date) (unknown) (unknown) BUN/Creatinine Ratio (units unknown) (unknown) (unknown) (no date) (unknown) (unknown) Baso # (Auto) 0 (units unknown) (unknown) (unknown) (no date) (unknown) (unknown) Baso # (Auto) (units unknown) (unknown) (unknown) (no date) (unknown) (unknown) Baso % (Auto) 0.2 (units unknown) (unknown) (unknown) (no date) (unknown) (unknown) Baso % (Auto) 0.3 (units unknown) (unknown) (unknown) (no date) (unknown) (unknown) Baso % (Auto) (units unknown) (unknown) (unknown) (no date) (unknown) (unknown) Blood Pressure 108/68 (units unknown) (unknown) (unknown) (no date) (unknown) (unknown) Blood Pressure 110/55 L (units unknown) (unknown) (unknown) (no date) (unknown) (unknown) Blood Pressure 118/62 (units unknown) (unknown) (unknown) (no date) (unknown) (unknown) Blood Pressure 118/67 (units unknown) (unknown) (unknown) (no date) (unknown) (unknown) Blood Pressure 119/63 (units unknown) (unknown) (unknown) (no date) (unknown) (unknown) Blood Pressure 119/67 124/57 L (units unknown) (unknown) (unknown) (no date) (unknown) (unknown) Blood Pressure 129/58 L (units unknown) (unknown) (unknown) (no date) (unknown) (unknown) Blood Pressure 138/63 122/63 (units unknown) (unknown) (unknown) (no date) (unknown) (unknown) Blood Pressure 144/63 H 132/69 (units unknown) (unknown) (unknown) (no date) (unknown) (unknown) Blood Pressure (units unknown) (unknown) (unknown) (no date) (unknown) (unknown) C-Reactive Protein 12.9 H (units unknown) (unknown) (unknown) (no date) (unknown) (unknown) C-Reactive Protein (units unknown) (unknown) (unknown) (no date) (unknown) (unknown) CK-MB (CK-2) 1.09 (units unknown) (unknown) (unknown) (no date) (unknown) (unknown) CK-MB (CK-2) Rel Index 0.8 L (units unknown) (unknown) (unknown) (no date) (unknown) (unknown) CK-MB (CK-2) Rel Index (units unknown) (unknown) (unknown) (no date) (unknown) (unknown) CK-MB (CK-2) (units unknown) (unknown) (unknown) (no date) (unknown) (unknown) Calcium 8.9 (units unknown) (unknown) (unknown) (no date) (unknown) (unknown) Calcium (units unknown) (unknown) (unknown) (no date) (unknown) (unknown) Carbon Dioxide 19 L (units unknown) (unknown) (unknown) (no date) (unknown) (unknown) Carbon Dioxide (units unknown) (unknown) (unknown) (no date) (unknown) (unknown) Chief complaint: vomiting/shaking/fe trell (units unknown) (unknown) (unknown) (no date) (unknown) (unknown) Chlamy pneumoniae PCR Not detected (units unknown) (unknown) (unknown) (no date) (unknown) (unknown) Chlamy pneumoniae PCR (units unknown) (unknown) (unknown) (no date) (unknown) (unknown) Chloride 96 L (units unknown) (unknown) (unknown) (no date) (unknown) (unknown) Chloride (units unknown) (unknown) (unknown) (no date) (unknown) (unknown) Consent obtained for tele-head nurse care: Yes (units unknown) (unknown) (unknown) (no date) (unknown) (unknown) Consult details (units unknown) (unknown) (unknown) (no date) (unknown) (unknown) Coronavirus 229E (PCR) Not detected (units unknown) (unknown) (unknown) (no date) (unknown) (unknown) Coronavirus 229E (PCR) (units unknown) (unknown) (unknown) (no date) (unknown) (unknown) Coronavirus HKU1 (PCR) Not detected (units unknown) (unknown) (unknown) (no date) (unknown) (unknown) Coronavirus HKU1 (PCR) (units unknown) (unknown) (unknown) (no date) (unknown) (unknown) Coronavirus NL63 (PCR) Not detected (units unknown) (unknown) (unknown) (no date) (unknown) (unknown) Coronavirus NL63 (PCR) (units unknown) (unknown) (unknown) (no date) (unknown) (unknown) Coronavirus OC43 (PCR) Not detected (units unknown) (unknown) (unknown) (no date) (unknown) (unknown) Coronavirus OC43 (PCR) (units unknown) (unknown) (unknown) (no date) (unknown) (unknown) Creatinine 1.12 (units unknown) (unknown) (unknown) (no date) (unknown) (unknown) Creatinine (units unknown) (unknown) (unknown) (no date) (unknown) (unknown) Current Medications (units unknown) (unknown) (unknown) (no date) (unknown) (unknown) : 1955 Acct:[id number] (units unknown) (unknown) (unknown) (no date) (unknown) (unknown) Date of Service: 01/15/23 (units unknown) (unknown) (unknown) (no date) (unknown) (unknown) Diabetes mellitus (units unknown) (unknown) (unknown) (no date) (unknown) (unknown) Diabetes (units unknown) (unknown) (unknown) (no date) (unknown) (unknown) Diphenhydramine 25 Mg Tablet PO 25 mg (units unknown) (unknown) (unknown) (no date) (unknown) (unknown) Diphenhydramine HCl 25 mg 01/15/23 20:24 01/16/23 01:12 (units unknown) (unknown) (unknown) (no date) (unknown) (unknown) ESR 41 H (units unknown) (unknown) (unknown) (no date) (unknown) (unknown) ESR (units unknown) (unknown) (unknown) (no date) (unknown) (unknown) ESR/CRP (units unknown) (unknown) (unknown) (no date) (unknown) (unknown) Entero/Rhino (PCR) Not detected (units unknown) (unknown) (unknown) (no date) (unknown) (unknown) Entero/Rhino (PCR) (units unknown) (unknown) (unknown) (no date) (unknown) (unknown) Eos # (Auto) 0 (units unknown) (unknown) (unknown) (no date) (unknown) (unknown) Eos # (Auto) (units unknown) (unknown) (unknown) (no date) (unknown) (unknown) Eos % (Auto) 0.0 L (units unknown) (unknown) (unknown) (no date) (unknown) (unknown) Eos % (Auto) 0.1 L (units unknown) (unknown) (unknown) (no date) (unknown) (unknown) Eos % (Auto) (units unknown) (unknown) (unknown) (no date) (unknown) (unknown) Estimated GFR > 60 (units unknown) (unknown) (unknown) (no date) (unknown) (unknown) Estimated GFR (units unknown) (unknown) (unknown) (no date) (unknown) (unknown) Ethyl Alcohol < 10 (units unknown) (unknown) (unknown) (no date) (unknown) (unknown) Ethyl Alcohol (units unknown) (unknown) (unknown) (no date) (unknown) (unknown) Exam Narrative: (units unknown) (unknown) (unknown) (no date) (unknown) (unknown) Exam (units unknown) (unknown) (unknown) (no date) (unknown) (unknown) Family History (units unknown) (unknown) (unknown) (no date) (unknown) (unknown) Father Smoker (units unknown) (unknown) (unknown) (no date) (unknown) (unknown) FiO2 21 (units unknown) (unknown) (unknown) (no date) (unknown) (unknown) FiO2 (units unknown) (unknown) (unknown) (no date) (unknown) (unknown) Follow up HgbA1c (units unknown) (unknown) (unknown) (no date) (unknown) (unknown) Free T4 1.26 (units unknown) (unknown) (unknown) (no date) (unknown) (unknown) Free T4 (units unknown) (unknown) (unknown) (no date) (unknown) (unknown) Generic Name Dose Route Start Last Admin (units unknown) (unknown) (unknown) (no date) (unknown) (unknown) Globulin 3.6 (units unknown) (unknown) (unknown) (no date) (unknown) (unknown) Globulin (units unknown) (unknown) (unknown) (no date) (unknown) (unknown) Glucose 252 H (units unknown) (unknown) (unknown) (no date) (unknown) (unknown) Glucose (units unknown) (unknown) (unknown) (no date) (unknown) (unknown) HLD and Afib with RVR (on Xarelto) who was admitted with Afib/RVR and c/f LLE (units unknown) (unknown) (unknown) (no date) (unknown) (unknown) Hct 39.8 L (units unknown) (unknown) (unknown) (no date) (unknown) (unknown) Hct 43.2 (units unknown) (unknown) (unknown) (no date) (unknown) (unknown) Hct (units unknown) (unknown) (unknown) (no date) (unknown) (unknown) Heart attack (units unknown) (unknown) (unknown) (no date) (unknown) (unknown) Hemoglobin A1c Cancelled (units unknown) (unknown) (unknown) (no date) (unknown) (unknown) Hemoglobin A1c (units unknown) (unknown) (unknown) (no date) (unknown) (unknown) Hgb 13.5 (units unknown) (unknown) (unknown) (no date) (unknown) (unknown) Hgb 14.6 (units unknown) (unknown) (unknown) (no date) (unknown) (unknown) Hgb (units unknown) (unknown) (unknown) (no date) (unknown) (unknown) History of Present Illness (units unknown) (unknown) (unknown) (no date) (unknown) (unknown) History of hernia repair (units unknown) (unknown) (unknown) (no date) (unknown) (unknown) History of neck surgery (units unknown) (unknown) (unknown) (no date) (unknown) (unknown) Home Medications (units unknown) (unknown) (unknown) (no date) (unknown) (unknown) Human Metapneumovir PCR Not detected (units unknown) (unknown) (unknown) (no date) (unknown) (unknown) Human Metapneumovir PCR (units unknown) (unknown) (unknown) (no date) (unknown) (unknown) Hyperlipidemia (units unknown) (unknown) (unknown) (no date) (unknown) (unknown) Hypertension (units unknown) (unknown) (unknown) (no date) (unknown) (unknown) IF CAMERA ACTIVATED, patient seen via real-time interactive audiovisual (units unknown) (unknown) (unknown) (no date) (unknown) (unknown) INR 1.4 H (units unknown) (unknown) (unknown) (no date) (unknown) (unknown) INR 1.7 H (units unknown) (unknown) (unknown) (no date) (unknown) (unknown) INR (units unknown) (unknown) (unknown) (no date) (unknown) (unknown) Influenza A (RT-PCR) Flu a negative (units unknown) (unknown) (unknown) (no date) (unknown) (unknown) Influenza A (RT-PCR) (units unknown) (unknown) (unknown) (no date) (unknown) (unknown) Influenza B (RT-PCR) Flu b negative (units unknown) (unknown) (unknown) (no date) (unknown) (unknown) Influenza B (RT-PCR) (units unknown) (unknown) (unknown) (no date) (unknown) (unknown) Influenza Type A (PCR) Not detected (units unknown) (unknown) (unknown) (no date) (unknown) (unknown) Influenza Type A (PCR) (units unknown) (unknown) (unknown) (no date) (unknown) (unknown) Influenza Type B (PCR) Not detected (units unknown) (unknown) (unknown) (no date) (unknown) (unknown) Influenza Type B (PCR) (units unknown) (unknown) (unknown) (no date) (unknown) (unknown) Insulin Glargine 100 Unit/Ml 3ml Pen SUBCUT 12 unit (units unknown) (unknown) (unknown) (no date) (unknown) (unknown) Insulin Glargine 12 unit 01/15/23 21:00 01/15/23 21:37 (units unknown) (unknown) (unknown) (no date) (unknown) (unknown) Insulin Human Lispro 0 unit 01/15/23 21:00 01/15/23 21:36 (units unknown) (unknown) (unknown) (no date) (unknown) (unknown) Insulin Lispro 100 Unit/Ml 3ml Vial SUBCUT 2 unit (units unknown) (unknown) (unknown) (no date) (unknown) (unknown) [address] [address] (units unknown) (unknown) (unknown) (no date) (unknown) (unknown) Itching (units unknown) (unknown) (unknown) (no date) (unknown) (unknown) Laboratory Results - last 24 hr (units unknown) (unknown) (unknown) (no date) (unknown) (unknown) Labs (units unknown) (unknown) (unknown) (no date) (unknown) (unknown) Labs: (units unknown) (unknown) (unknown) (no date) (unknown) (unknown) Lactate 1.0 (units unknown) (unknown) (unknown) (no date) (unknown) (unknown) Lactate 1.4 (units unknown) (unknown) (unknown) (no date) (unknown) (unknown) Lactate 3.2 H (units unknown) (unknown) (unknown) (no date) (unknown) (unknown) Lactate (units unknown) (unknown) (unknown) (no date) (unknown) (unknown) Lipase 367 H (units unknown) (unknown) (unknown) (no date) (unknown) (unknown) Lipase (units unknown) (unknown) (unknown) (no date) (unknown) (unknown) Lymph # (Auto) 1400 (units unknown) (unknown) (unknown) (no date) (unknown) (unknown) Lymph # (Auto) 600 L (units unknown) (unknown) (unknown) (no date) (unknown) (unknown) Lymph # (Auto) (units unknown) (unknown) (unknown) (no date) (unknown) (unknown) Lymph % (Auto) 6.1 L (units unknown) (unknown) (unknown) (no date) (unknown) (unknown) Lymph % (Auto) 9.0 L (units unknown) (unknown) (unknown) (no date) (unknown) (unknown) Lymph % (Auto) (units unknown) (unknown) (unknown) (no date) (unknown) (unknown) M. pneumoniae (PCR) Not detected (units unknown) (unknown) (unknown) (no date) (unknown) (unknown) M. pneumoniae (PCR) (units unknown) (unknown) (unknown) (no date) (unknown) (unknown) MCH 29.3 (units unknown) (unknown) (unknown) (no date) (unknown) (unknown) MCH 29.5 (units unknown) (unknown) (unknown) (no date) (unknown) (unknown) MCH (units unknown) (unknown) (unknown) (no date) (unknown) (unknown) MCHC 33.8 (units unknown) (unknown) (unknown) (no date) (unknown) (unknown) MCHC 33.9 (units unknown) (unknown) (unknown) (no date) (unknown) (unknown) MCHC (units unknown) (unknown) (unknown) (no date) (unknown) (unknown) MCV 86.5 (units unknown) (unknown) (unknown) (no date) (unknown) (unknown) MCV 86.9 (units unknown) (unknown) (unknown) (no date) (unknown) (unknown) MCV (units unknown) (unknown) (unknown) (no date) (unknown) (unknown) Magnesium 1.2 L (units unknown) (unknown) (unknown) (no date) (unknown) (unknown) Magnesium 1.9 (units unknown) (unknown) (unknown) (no date) (unknown) (unknown) Magnesium (units unknown) (unknown) (unknown) (no date) (unknown) (unknown) Medical History (Updated 01/16/23 @ 06:48 by Judy Alvarado) (units unknown) (unknown) (unknown) (no date) (unknown) (unknown) Medications: (units unknown) (unknown) (unknown) (no date) (unknown) (unknown) [place] # (Auto) 1500 H (units unknown) (unknown) (unknown) (no date) (unknown) (unknown) [place] # (Auto) 800 (units unknown) (unknown) (unknown) (no date) (unknown) (unknown) [place] # (Auto) (units unknown) (unknown) (unknown) (no date) (unknown) (unknown) [place] % (Auto) 8.2 (units unknown) (unknown) (unknown) (no date) (unknown) (unknown) [place] % (Auto) 9.2 (units unknown) (unknown) (unknown) (no date) (unknown) (unknown) [place] % (Auto) (units unknown) (unknown) (unknown) (no date) (unknown) (unknown) Mother No significant medical problems (units unknown) (unknown) (unknown) (no date) (unknown) (unknown) NT-Pro-B Natriuret Pep 2810 H (units unknown) (unknown) (unknown) (no date) (unknown) (unknown) NT-Pro-B Natriuret Pep 3710 H (units unknown) (unknown) (unknown) (no date) (unknown) (unknown) NT-Pro-B Natriuret Pep (units unknown) (unknown) (unknown) (no date) (unknown) (unknown) Narrative (units unknown) (unknown) (unknown) (no date) (unknown) (unknown) Narrative: (units unknown) (unknown) (unknown) (no date) (unknown) (unknown) Nasal Screen MRSA (PCR) Not detected (units unknown) (unknown) (unknown) (no date) (unknown) (unknown) Nasal Screen MRSA (PCR) (units unknown) (unknown) (unknown) (no date) (unknown) (unknown) Neuropathy of both feet (units unknown) (unknown) (unknown) (no date) (unknown) (unknown) Neut # (Auto) 15505 H (units unknown) (unknown) (unknown) (no date) (unknown) (unknown) Neut # (Auto) 8500 H (units unknown) (unknown) (unknown) (no date) (unknown) (unknown) Neut # (Auto) (units unknown) (unknown) (unknown) (no date) (unknown) (unknown) Neut % (Auto) 81.5 H (units unknown) (unknown) (unknown) (no date) (unknown) (unknown) Neut % (Auto) 85.4 H (units unknown) (unknown) (unknown) (no date) (unknown) (unknown) Neut % (Auto) (units unknown) (unknown) (unknown) (no date) (unknown) (unknown) Objective (units unknown) (unknown) (unknown) (no date) (unknown) (unknown) Other participants/roles: RN (units unknown) (unknown) (unknown) (no date) (unknown) (unknown) Oxygen Delivery Method Room Air (units unknown) (unknown) (unknown) (no date) (unknown) (unknown) Oxygen Delivery Method (units unknown) (unknown) (unknown) (no date) (unknown) (unknown) Oxygen Flow Rate 0 (units unknown) (unknown) (unknown) (no date) (unknown) (unknown) PFSH (units unknown) (unknown) (unknown) (no date) (unknown) (unknown) PT 16.4 H (units unknown) (unknown) (unknown) (no date) (unknown) (unknown) PT 19.2 H (units unknown) (unknown) (unknown) (no date) (unknown) (unknown) PT (units unknown) (unknown) (unknown) (no date) (unknown) (unknown) Parainfluenza 1 (PCR) Not detected (units unknown) (unknown) (unknown) (no date) (unknown) (unknown) Parainfluenza 1 (PCR) (units unknown) (unknown) (unknown) (no date) (unknown) (unknown) Parainfluenza 2 (PCR) Not detected (units unknown) (unknown) (unknown) (no date) (unknown) (unknown) Parainfluenza 2 (PCR) (units unknown) (unknown) (unknown) (no date) (unknown) (unknown) Parainfluenza 3 (PCR) Not detected (units unknown) (unknown) (unknown) (no date) (unknown) (unknown) Parainfluenza 3 (PCR) (units unknown) (unknown) (unknown) (no date) (unknown) (unknown) Parainfluenza 4 (PCR) Not detected (units unknown) (unknown) (unknown) (no date) (unknown) (unknown) Parainfluenza 4 (PCR) (units unknown) (unknown) (unknown) (no date) (unknown) (unknown) Patient Location: ICU (units unknown) (unknown) (unknown) (no date) (unknown) (unknown) Patient: Arvind Brock MR#: [id number] (units unknown) (unknown) (unknown) (no date) (unknown) (unknown) Piperacillin Sod/Tazobactam 100 mls @ 25 mls/hr 01/16/23 01:00 01/16/23 05:34 (units unknown) (unknown) (unknown) (no date) (unknown) (unknown) Plt Count 121 L (units unknown) (unknown) (unknown) (no date) (unknown) (unknown) Plt Count 162 (units unknown) (unknown) (unknown) (no date) (unknown) (unknown) Plt Count (units unknown) (unknown) (unknown) (no date) (unknown) (unknown) Potassium 4.5 (units unknown) (unknown) (unknown) (no date) (unknown) (unknown) Potassium (units unknown) (unknown) (unknown) (no date) (unknown) (unknown) Procalcitonin 0.50 (units unknown) (unknown) (unknown) (no date) (unknown) (unknown) Procalcitonin (units unknown) (unknown) (unknown) (no date) (unknown) (unknown) Protocol (units unknown) (unknown) (unknown) (no date) (unknown) (unknown) Provider location (State): [place] (units unknown) (unknown) (unknown) (no date) (unknown) (unknown) Provider: Judy Alvarado (units unknown) (unknown) (unknown) (no date) (unknown) (unknown) Pulse Oximetry 95 95 (units unknown) (unknown) (unknown) (no date) (unknown) (unknown) Pulse Oximetry 95 96 (units unknown) (unknown) (unknown) (no date) (unknown) (unknown) Pulse Oximetry 95 (units unknown) (unknown) (unknown) (no date) (unknown) (unknown) Pulse Oximetry 96 96 (units unknown) (unknown) (unknown) (no date) (unknown) (unknown) Pulse Oximetry 96 (units unknown) (unknown) (unknown) (no date) (unknown) (unknown) Pulse Oximetry 97 97 (units unknown) (unknown) (unknown) (no date) (unknown) (unknown) Pulse Oximetry 97 (units unknown) (unknown) (unknown) (no date) (unknown) (unknown) Pulse Rate 86 96 H (units unknown) (unknown) (unknown) (no date) (unknown) (unknown) Pulse Rate 86 (units unknown) (unknown) (unknown) (no date) (unknown) (unknown) Pulse Rate 88 98 H (units unknown) (unknown) (unknown) (no date) (unknown) (unknown) Pulse Rate 91 H 102 H (units unknown) (unknown) (unknown) (no date) (unknown) (unknown) Pulse Rate 91 H (units unknown) (unknown) (unknown) (no date) (unknown) (unknown) Pulse Rate 92 H 89 (units unknown) (unknown) (unknown) (no date) (unknown) (unknown) Pulse Rate 92 H (units unknown) (unknown) (unknown) (no date) (unknown) (unknown) Pulse Rate 93 H (units unknown) (unknown) (unknown) (no date) (unknown) (unknown) Pulse Rate 96 H 92 H (units unknown) (unknown) (unknown) (no date) (unknown) (unknown) Pulse Rate 97 H (units unknown) (unknown) (unknown) (no date) (unknown) (unknown) Q6HR PRN Administration (units unknown) (unknown) (unknown) (no date) (unknown) (unknown) Q8H DE[facility] Infusion (units unknown) (unknown) (unknown) (no date) (unknown) (unknown) RBC 4.58 (units unknown) (unknown) (unknown) (no date) (unknown) (unknown) RBC 5.00 (units unknown) (unknown) (unknown) (no date) (unknown) (unknown) RBC (units unknown) (unknown) (unknown) (no date) (unknown) (unknown) RDW 15.3 H (units unknown) (unknown) (unknown) (no date) (unknown) (unknown) RDW (units unknown) (unknown) (unknown) (no date) (unknown) (unknown) RSV (PCR) Negative (units unknown) (unknown) (unknown) (no date) (unknown) (unknown) RSV (PCR) Not detected (units unknown) (unknown) (unknown) (no date) (unknown) (unknown) RSV (PCR) (units unknown) (unknown) (unknown) (no date) (unknown) (unknown) Respiratory Rate 25 H (units unknown) (unknown) (unknown) (no date) (unknown) (unknown) Respiratory Rate 26 H (units unknown) (unknown) (unknown) (no date) (unknown) (unknown) Respiratory Rate 27 H 26 H (units unknown) (unknown) (unknown) (no date) (unknown) (unknown) Respiratory Rate 27 H 32 H (units unknown) (unknown) (unknown) (no date) (unknown) (unknown) Respiratory Rate 28 H 29 H (units unknown) (unknown) (unknown) (no date) (unknown) (unknown) Respiratory Rate 29 H 31 H (units unknown) (unknown) (unknown) (no date) (unknown) (unknown) Respiratory Rate 31 H 32 H (units unknown) (unknown) (unknown) (no date) (unknown) (unknown) Respiratory Rate 31 H (units unknown) (unknown) (unknown) (no date) (unknown) (unknown) Respiratory Rate 32 H (units unknown) (unknown) (unknown) (no date) (unknown) (unknown) SARS-CoV-2 (PCR) Negative (units unknown) (unknown) (unknown) (no date) (unknown) (unknown) SARS-CoV-2 (PCR) Not detected (units unknown) (unknown) (unknown) (no date) (unknown) (unknown) SARS-CoV-2 (PCR) (units unknown) (unknown) (unknown) (no date) (unknown) (unknown) Sennosides 17.2 mg 01/15/23 21:00 01/15/23 21:43 (units unknown) (unknown) (unknown) (no date) (unknown) (unknown) Sennosides 8.6 Mg Tablet PO Not Given (units unknown) (unknown) (unknown) (no date) (unknown) (unknown) Signed By:<Electronically signed by Judy Alvarado> (units unknown) (unknown) (unknown) (no date) (unknown) (unknown) Smoking Status: Never smoker (units unknown) (unknown) (unknown) (no date) (unknown) (unknown) Social History (units unknown) (unknown) (unknown) (no date) (unknown) (unknown) Sod 3.375 gm/ Sodium Chloride IV Infused (units unknown) (unknown) (unknown) (no date) (unknown) (unknown) Sodium 128 L (units unknown) (unknown) (unknown) (no date) (unknown) (unknown) Sodium (units unknown) (unknown) (unknown) (no date) (unknown) (unknown) Status: Acute (units unknown) (unknown) (unknown) (no date) (unknown) (unknown) Surgical History (units unknown) (unknown) (unknown) (no date) (unknown) (unknown) TSH 1.23 (units unknown) (unknown) (unknown) (no date) (unknown) (unknown) TSH (units unknown) (unknown) (unknown) (no date) (unknown) (unknown) TTE from last admission with EF 35-40%, global hypokinesis of LV. CXR on (units unknown) (unknown) (unknown) (no date) (unknown) (unknown) Teleintensivist Consult Note (units unknown) (unknown) (unknown) (no date) (unknown) (unknown) Temperature 98.6 F (units unknown) (unknown) (unknown) (no date) (unknown) (unknown) Temperature 99.4 F (units unknown) (unknown) (unknown) (no date) (unknown) (unknown) Temperature (units unknown) (unknown) (unknown) (no date) (unknown) (unknown) Total Bilirubin 1.2 (units unknown) (unknown) (unknown) (no date) (unknown) (unknown) Total Bilirubin (units unknown) (unknown) (unknown) (no date) (unknown) (unknown) Total Creatine Kinase 133 (units unknown) (unknown) (unknown) (no date) (unknown) (unknown) Total Creatine Kinase (units unknown) (unknown) (unknown) (no date) (unknown) (unknown) Total Protein 7.7 (units unknown) (unknown) (unknown) (no date) (unknown) (unknown) Total Protein (units unknown) (unknown) (unknown) (no date) (unknown) (unknown) Trade Name Freq PRN Reason Stop Dose Admin (units unknown) (unknown) (unknown) (no date) (unknown) (unknown) Troponin I 0.016 (units unknown) (unknown) (unknown) (no date) (unknown) (unknown) Troponin I 0.248 H* (units unknown) (unknown) (unknown) (no date) (unknown) (unknown) Troponin I 0.251 H* (units unknown) (unknown) (unknown) (no date) (unknown) (unknown) Troponin I (units unknown) (unknown) (unknown) (no date) (unknown) (unknown) Unable to view LLE well but obvious erythema notable. (units unknown) (unknown) (unknown) (no date) (unknown) (unknown) VBG Base Excess -4.0 L (units unknown) (unknown) (unknown) (no date) (unknown) (unknown) VBG Base Excess (units unknown) (unknown) (unknown) (no date) (unknown) (unknown) VBG HCO3 21 L (units unknown) (unknown) (unknown) (no date) (unknown) (unknown) VBG HCO3 (units unknown) (unknown) (unknown) (no date) (unknown) (unknown) VBG O2 Saturation 69 L (units unknown) (unknown) (unknown) (no date) (unknown) (unknown) VBG O2 Saturation (units unknown) (unknown) (unknown) (no date) (unknown) (unknown) VBG Total CO2 21 L (units unknown) (unknown) (unknown) (no date) (unknown) (unknown) VBG Total CO2 (units unknown) (unknown) (unknown) (no date) (unknown) (unknown) VBG pCO2 30.5 L (units unknown) (unknown) (unknown) (no date) (unknown) (unknown) VBG pCO2 (units unknown) (unknown) (unknown) (no date) (unknown) (unknown) VBG pH 7.44 H (units unknown) (unknown) (unknown) (no date) (unknown) (unknown) VBG pH (units unknown) (unknown) (unknown) (no date) (unknown) (unknown) VBG pO2 34 L (units unknown) (unknown) (unknown) (no date) (unknown) (unknown) VBG pO2 (units unknown) (unknown) (unknown) (no date) (unknown) (unknown) Visit Medications (administered) (units unknown) (unknown) (unknown) (no date) (unknown) (unknown) Vital Signs (units unknown) (unknown) (unknown) (no date) (unknown) (unknown) WBC 15.9 H (units unknown) (unknown) (unknown) (no date) (unknown) (unknown) WBC 9.9 (units unknown) (unknown) (unknown) (no date) (unknown) (unknown) WBC (units unknown) (unknown) (unknown) (no date) (unknown) (unknown) Zosyn, cultures sent. Patient also notes a 'scratchy' throat for 1 week but (units unknown) (unknown) (unknown) (no date) (unknown) (unknown) [Embedded Image Not Available] (units unknown) (unknown) (unknown) (no date) (unknown) (unknown) admission with e/o pulmonary edema. (units unknown) (unknown) (unknown) (no date) (unknown) (unknown) alcohol intake: never (units unknown) (unknown) (unknown) (no date) (unknown) (unknown) communication: Camera activated (units unknown) (unknown) (unknown) (no date) (unknown) (unknown) control, now in the 80s with occasional episodes up to the 120s/130s. Started on (units unknown) (unknown) (unknown) (no date) (unknown) (unknown) household members: spouse (units unknown) (unknown) (unknown) (no date) (unknown) (unknown) infection. At home was noted to have several days of fevers as well as LLE (units unknown) (unknown) (unknown) (no date) (unknown) (unknown) insulin glargine 100 unit/mL subcutaneous solution (Lantus U-100 Insulin) 12 (units unknown) (unknown) (unknown) (no date) (unknown) (unknown) lisinopril 5 mg tablet 5 mg PO DAILY 90 days #90 tabs 12/21/22 [Rx Confirmed (units unknown) (unknown) (unknown) (no date) (unknown) (unknown) metformin 500 mg tablet 500 mg PO BID 05/11/20 [History Confirmed 01/15/23] (units unknown) (unknown) (unknown) (no date) (unknown) (unknown) metoprolol succinate 50 mg tablet,extended release 24 hr 50 mg PO BID 90 days (units unknown) (unknown) (unknown) (no date) (unknown) (unknown) occupational status: employed (units unknown) (unknown) (unknown) (no date) (unknown) (unknown) redness/swelling, no pain. Patient required initiation of Diltiazem drip for HR (units unknown) (unknown) (unknown) (no date) (unknown) (unknown) reports no pain, able to swallow liquids/solids. (units unknown) (unknown) (unknown) (no date) (unknown) (unknown) rivaroxaban 20 mg tablet (Xarelto) 20 mg PO QPM 05/11/20 [History Confirmed (units unknown) (unknown) (unknown) (no date) (unknown) (unknown) unit SUBCUT BEDTIME 05/11/20 [History Confirmed 01/15/23] (units unknown) (unknown) Result panel 454 (unknown) (no date) (unknown) (unknown) (no value) (units unknown) (unknown) (unknown) (no date) (unknown) (unknown) #180 tabs 12/21/22 [Rx Confirmed 01/15/23] (units unknown) (unknown) (unknown) (no date) (unknown) (unknown) (1) Atrial fibrillation with RVR: (units unknown) (unknown) (unknown) (no date) (unknown) (unknown) (2) Sepsis: (units unknown) (unknown) (unknown) (no date) (unknown) (unknown) (3) Cellulitis of left leg: (units unknown) (unknown) (unknown) (no date) (unknown) (unknown) (4) Elevated troponin: (units unknown) (unknown) (unknown) (no date) (unknown) (unknown) (5) Hyperglycemia: (units unknown) (unknown) (unknown) (no date) (unknown) (unknown) (6) Hyponatremia: (units unknown) (unknown) (unknown) (no date) (unknown) (unknown) (7) Thrombocytopenia: (units unknown) (unknown) (unknown) (no date) (unknown) (unknown) (past 8 hours): (units unknown) (unknown) (unknown) (no date) (unknown) (unknown) ADDENDUM (units unknown) (unknown) (unknown) (no date) (unknown) (unknown) *Strep swab given sore throat, fevers (units unknown) (unknown) (unknown) (no date) (unknown) (unknown) - Consider diuresis today. Monitor electrolytes/Cr/UOP (units unknown) (unknown) (unknown) (no date) (unknown) (unknown) - Consider trending inflammatory markers (units unknown) (unknown) (unknown) (no date) (unknown) (unknown) - Continue Xarelto. (units unknown) (unknown) (unknown) (no date) (unknown) (unknown) - Continue Zosyn. MRSA negative. (units unknown) (unknown) (unknown) (no date) (unknown) (unknown) - DC mIVF given e/o pulmonary edema. (units unknown) (unknown) (unknown) (no date) (unknown) (unknown) - Follow up blood cultures (units unknown) (unknown) (unknown) (no date) (unknown) (unknown) - Lantus 12u QHS, SSI ordered. Adjust insulin regimen as needed, BG goal < 180. (units unknown) (unknown) (unknown) (no date) (unknown) (unknown) - Monitor platelets (units unknown) (unknown) (unknown) (no date) (unknown) (unknown) - Obtain XRs of LLE for further assessment of Osteo given histry and elevated (units unknown) (unknown) (unknown) (no date) (unknown) (unknown) - Start home Metop (50 BID), hold Dilt drip (units unknown) (unknown) (unknown) (no date) (unknown) (unknown) - US LLE (would consider arterial/venous eval) (units unknown) (unknown) (unknown) (no date) (unknown) (unknown) - Will consider TTE (units unknown) (unknown) (unknown) (no date) (unknown) (unknown) 00:00 01/16/23 (units unknown) (unknown) (unknown) (no date) (unknown) (unknown) 00:00 (units unknown) (unknown) (unknown) (no date) (unknown) (unknown) 00:09 01/16/23 (units unknown) (unknown) (unknown) (no date) (unknown) (unknown) 00:30 01/16/23 (units unknown) (unknown) (unknown) (no date) (unknown) (unknown) 01:00 01/16/23 (units unknown) (unknown) (unknown) (no date) (unknown) (unknown) 01:00 (units unknown) (unknown) (unknown) (no date) (unknown) (unknown) 01:30 01/16/23 (units unknown) (unknown) (unknown) (no date) (unknown) (unknown) 01:30 (units unknown) (unknown) (unknown) (no date) (unknown) (unknown) [id number] (units unknown) (unknown) (unknown) (no date) (unknown) (unknown) 02:00 01/16/23 (units unknown) (unknown) (unknown) (no date) (unknown) (unknown) 02:15 02:15 02:15 (units unknown) (unknown) (unknown) (no date) (unknown) (unknown) 02:31 01/16/23 (units unknown) (unknown) (unknown) (no date) (unknown) (unknown) 02:31 (units unknown) (unknown) (unknown) (no date) (unknown) (unknown) 02:38 (units unknown) (unknown) (unknown) (no date) (unknown) (unknown) 01/15/23 01/15/23 01/15/23 (units unknown) (unknown) (unknown) (no date) (unknown) (unknown) 01/15/23 01/15/23 01/16/23 (units unknown) (unknown) (unknown) (no date) (unknown) (unknown) 01/15/23 15:25 (units unknown) (unknown) (unknown) (no date) (unknown) (unknown) 01/15/23 (units unknown) (unknown) (unknown) (no date) (unknown) (unknown) 01/15/23] (units unknown) (unknown) (unknown) (no date) (unknown) (unknown) 01/16/23 02:15 (units unknown) (unknown) (unknown) (no date) (unknown) (unknown) 01/16/23 01/16/23 01/16/23 (units unknown) (unknown) (unknown) (no date) (unknown) (unknown) 01/16/23 0653 (units unknown) (unknown) (unknown) (no date) (unknown) (unknown) 01/16/23 0656 (units unknown) (unknown) (unknown) (no date) (unknown) (unknown) 01/16/23 (units unknown) (unknown) (unknown) (no date) (unknown) (unknown) 03:00 01/16/23 (units unknown) (unknown) (unknown) (no date) (unknown) (unknown) 03:00 (units unknown) (unknown) (unknown) (no date) (unknown) (unknown) 03:30 01/16/23 (units unknown) (unknown) (unknown) (no date) (unknown) (unknown) 04:01 01/16/23 (units unknown) (unknown) (unknown) (no date) (unknown) (unknown) 04:01 (units unknown) (unknown) (unknown) (no date) (unknown) (unknown) 04:30 01/16/23 (units unknown) (unknown) (unknown) (no date) (unknown) (unknown) 04:30 (units unknown) (unknown) (unknown) (no date) (unknown) (unknown) 04:52 (units unknown) (unknown) (unknown) (no date) (unknown) (unknown) 15:25 15:25 15:25 (units unknown) (unknown) (unknown) (no date) (unknown) (unknown) 15:25 15:25 15:49 (units unknown) (unknown) (unknown) (no date) (unknown) (unknown) 18:15 19:10 20:51 (units unknown) (unknown) (unknown) (no date) (unknown) (unknown) 20:51 20:51 20:51 (units unknown) (unknown) (unknown) (no date) (unknown) (unknown) 20:51 21:50 02:15 (units unknown) (unknown) (unknown) (no date) (unknown) (unknown) 2100 DE[facility] Administration (units unknown) (unknown) (unknown) (no date) (unknown) (unknown) 23:00 01/15/23 (units unknown) (unknown) (unknown) (no date) (unknown) (unknown) 23:15 (units unknown) (unknown) (unknown) (no date) (unknown) (unknown) 23:30 01/15/23 (units unknown) (unknown) (unknown) (no date) (unknown) (unknown) 23:30 01/16/23 (units unknown) (unknown) (unknown) (no date) (unknown) (unknown) 67M with a PMH of DM (c/b Neuropathy and 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), HTN, (units unknown) (unknown) (unknown) (no date) (unknown) (unknown) ACHS DEIDRA Administration (units unknown) (unknown) (unknown) (no date) (unknown) (unknown) ALT 29 (units unknown) (unknown) (unknown) (no date) (unknown) (unknown) ALT (units unknown) (unknown) (unknown) (no date) (unknown) (unknown) APTT 33 (units unknown) (unknown) (unknown) (no date) (unknown) (unknown) APTT (units unknown) (unknown) (unknown) (no date) (unknown) (unknown) AST 32 (units unknown) (unknown) (unknown) (no date) (unknown) (unknown) AST (units unknown) (unknown) (unknown) (no date) (unknown) (unknown) Addendum Documented By: Judy Alvarado (units unknown) (unknown) (unknown) (no date) (unknown) (unknown) Addendum Signed By: <Electronically signed by Judy Alvarado> (units unknown) (unknown) (unknown) (no date) (unknown) (unknown) Adenovirus (PCR) Not detected (units unknown) (unknown) (unknown) (no date) (unknown) (unknown) Adenovirus (PCR) (units unknown) (unknown) (unknown) (no date) (unknown) (unknown) Afib (units unknown) (unknown) (unknown) (no date) (unknown) (unknown) Age/Sex: 67 / M (units unknown) (unknown) (unknown) (no date) (unknown) (unknown) Albumin 4.1 (units unknown) (unknown) (unknown) (no date) (unknown) (unknown) Albumin (units unknown) (unknown) (unknown) (no date) (unknown) (unknown) Albumin/Globulin Ratio 1.1 (units unknown) (unknown) (unknown) (no date) (unknown) (unknown) Albumin/Globulin Ratio (units unknown) (unknown) (unknown) (no date) (unknown) (unknown) Alkaline Phosphatase 97 (units unknown) (unknown) (unknown) (no date) (unknown) (unknown) Alkaline Phosphatase (units unknown) (unknown) (unknown) (no date) (unknown) (unknown) Assessment + Plan narrative: (units unknown) (unknown) (unknown) (no date) (unknown) (unknown) Assessment + Plan (units unknown) (unknown) (unknown) (no date) (unknown) (unknown) Assessment and plan (units unknown) (unknown) (unknown) (no date) (unknown) (unknown) Awake, alert and conversant. HR irregular but in 90s; BP WNL. Mild tachypnea. (units unknown) (unknown) (unknown) (no date) (unknown) (unknown) B. pertussis DNA (PCR) Not detected (units unknown) (unknown) (unknown) (no date) (unknown) (unknown) B. pertussis DNA (PCR) (units unknown) (unknown) (unknown) (no date) (unknown) (unknown) B.parapertussis DNA PCR Not detected (units unknown) (unknown) (unknown) (no date) (unknown) (unknown) B.parapertussis DNA PCR (units unknown) (unknown) (unknown) (no date) (unknown) (unknown) BEDTIME DEIDRA (units unknown) (unknown) (unknown) (no date) (unknown) (unknown) BUN 24 H (units unknown) (unknown) (unknown) (no date) (unknown) (unknown) BUN (units unknown) (unknown) (unknown) (no date) (unknown) (unknown) BUN/Creatinine Ratio 21.4 (units unknown) (unknown) (unknown) (no date) (unknown) (unknown) BUN/Creatinine Ratio (units unknown) (unknown) (unknown) (no date) (unknown) (unknown) Baso # (Auto) 0 (units unknown) (unknown) (unknown) (no date) (unknown) (unknown) Baso # (Auto) (units unknown) (unknown) (unknown) (no date) (unknown) (unknown) Baso % (Auto) 0.2 (units unknown) (unknown) (unknown) (no date) (unknown) (unknown) Baso % (Auto) 0.3 (units unknown) (unknown) (unknown) (no date) (unknown) (unknown) Baso % (Auto) (units unknown) (unknown) (unknown) (no date) (unknown) (unknown) Blood Pressure 108/68 (units unknown) (unknown) (unknown) (no date) (unknown) (unknown) Blood Pressure 110/55 L (units unknown) (unknown) (unknown) (no date) (unknown) (unknown) Blood Pressure 118/62 (units unknown) (unknown) (unknown) (no date) (unknown) (unknown) Blood Pressure 118/67 (units unknown) (unknown) (unknown) (no date) (unknown) (unknown) Blood Pressure 119/63 (units unknown) (unknown) (unknown) (no date) (unknown) (unknown) Blood Pressure 119/67 124/57 L (units unknown) (unknown) (unknown) (no date) (unknown) (unknown) Blood Pressure 129/58 L (units unknown) (unknown) (unknown) (no date) (unknown) (unknown) Blood Pressure 138/63 122/63 (units unknown) (unknown) (unknown) (no date) (unknown) (unknown) Blood Pressure 144/63 H 132/69 (units unknown) (unknown) (unknown) (no date) (unknown) (unknown) Blood Pressure (units unknown) (unknown) (unknown) (no date) (unknown) (unknown) C-Reactive Protein 12.9 H (units unknown) (unknown) (unknown) (no date) (unknown) (unknown) C-Reactive Protein (units unknown) (unknown) (unknown) (no date) (unknown) (unknown) CK-MB (CK-2) 1.09 (units unknown) (unknown) (unknown) (no date) (unknown) (unknown) CK-MB (CK-2) Rel Index 0.8 L (units unknown) (unknown) (unknown) (no date) (unknown) (unknown) CK-MB (CK-2) Rel Index (units unknown) (unknown) (unknown) (no date) (unknown) (unknown) CK-MB (CK-2) (units unknown) (unknown) (unknown) (no date) (unknown) (unknown) Calcium 8.9 (units unknown) (unknown) (unknown) (no date) (unknown) (unknown) Calcium (units unknown) (unknown) (unknown) (no date) (unknown) (unknown) Carbon Dioxide 19 L (units unknown) (unknown) (unknown) (no date) (unknown) (unknown) Carbon Dioxide (units unknown) (unknown) (unknown) (no date) (unknown) (unknown) Chief complaint: vomiting/shaking/fe trell (units unknown) (unknown) (unknown) (no date) (unknown) (unknown) Chlamy pneumoniae PCR Not detected (units unknown) (unknown) (unknown) (no date) (unknown) (unknown) Chlamy pneumoniae PCR (units unknown) (unknown) (unknown) (no date) (unknown) (unknown) Chloride 96 L (units unknown) (unknown) (unknown) (no date) (unknown) (unknown) Chloride (units unknown) (unknown) (unknown) (no date) (unknown) (unknown) Consent obtained for tele-head nurse care: Yes (units unknown) (unknown) (unknown) (no date) (unknown) (unknown) Consult details (units unknown) (unknown) (unknown) (no date) (unknown) (unknown) Coronavirus 229E (PCR) Not detected (units unknown) (unknown) (unknown) (no date) (unknown) (unknown) Coronavirus 229E (PCR) (units unknown) (unknown) (unknown) (no date) (unknown) (unknown) Coronavirus HKU1 (PCR) Not detected (units unknown) (unknown) (unknown) (no date) (unknown) (unknown) Coronavirus HKU1 (PCR) (units unknown) (unknown) (unknown) (no date) (unknown) (unknown) Coronavirus NL63 (PCR) Not detected (units unknown) (unknown) (unknown) (no date) (unknown) (unknown) Coronavirus NL63 (PCR) (units unknown) (unknown) (unknown) (no date) (unknown) (unknown) Coronavirus OC43 (PCR) Not detected (units unknown) (unknown) (unknown) (no date) (unknown) (unknown) Coronavirus OC43 (PCR) (units unknown) (unknown) (unknown) (no date) (unknown) (unknown) Creatinine 1.12 (units unknown) (unknown) (unknown) (no date) (unknown) (unknown) Creatinine (units unknown) (unknown) (unknown) (no date) (unknown) (unknown) Current Medications (units unknown) (unknown) (unknown) (no date) (unknown) (unknown) : 1955 Acct:[id number] (units unknown) (unknown) (unknown) (no date) (unknown) (unknown) Date of Service: 01/15/23 (units unknown) (unknown) (unknown) (no date) (unknown) (unknown) Diabetes mellitus (units unknown) (unknown) (unknown) (no date) (unknown) (unknown) Diabetes (units unknown) (unknown) (unknown) (no date) (unknown) (unknown) Diphenhydramine 25 Mg Tablet PO 25 mg (units unknown) (unknown) (unknown) (no date) (unknown) (unknown) Diphenhydramine HCl 25 mg 01/15/23 20:24 01/16/23 01:12 (units unknown) (unknown) (unknown) (no date) (unknown) (unknown) ESR 41 H (units unknown) (unknown) (unknown) (no date) (unknown) (unknown) ESR (units unknown) (unknown) (unknown) (no date) (unknown) (unknown) ESR/CRP (units unknown) (unknown) (unknown) (no date) (unknown) (unknown) Entero/Rhino (PCR) Not detected (units unknown) (unknown) (unknown) (no date) (unknown) (unknown) Entero/Rhino (PCR) (units unknown) (unknown) (unknown) (no date) (unknown) (unknown) Eos # (Auto) 0 (units unknown) (unknown) (unknown) (no date) (unknown) (unknown) Eos # (Auto) (units unknown) (unknown) (unknown) (no date) (unknown) (unknown) Eos % (Auto) 0.0 L (units unknown) (unknown) (unknown) (no date) (unknown) (unknown) Eos % (Auto) 0.1 L (units unknown) (unknown) (unknown) (no date) (unknown) (unknown) Eos % (Auto) (units unknown) (unknown) (unknown) (no date) (unknown) (unknown) Estimated GFR > 60 (units unknown) (unknown) (unknown) (no date) (unknown) (unknown) Estimated GFR (units unknown) (unknown) (unknown) (no date) (unknown) (unknown) Ethyl Alcohol < 10 (units unknown) (unknown) (unknown) (no date) (unknown) (unknown) Ethyl Alcohol (units unknown) (unknown) (unknown) (no date) (unknown) (unknown) Exam Narrative: (units unknown) (unknown) (unknown) (no date) (unknown) (unknown) Exam (units unknown) (unknown) (unknown) (no date) (unknown) (unknown) Family History (units unknown) (unknown) (unknown) (no date) (unknown) (unknown) Father Smoker (units unknown) (unknown) (unknown) (no date) (unknown) (unknown) FiO2 21 (units unknown) (unknown) (unknown) (no date) (unknown) (unknown) FiO2 (units unknown) (unknown) (unknown) (no date) (unknown) (unknown) Follow up HgbA1c (units unknown) (unknown) (unknown) (no date) (unknown) (unknown) Free T4 1.26 (units unknown) (unknown) (unknown) (no date) (unknown) (unknown) Free T4 (units unknown) (unknown) (unknown) (no date) (unknown) (unknown) Generic Name Dose Route Start Last Admin (units unknown) (unknown) (unknown) (no date) (unknown) (unknown) Globulin 3.6 (units unknown) (unknown) (unknown) (no date) (unknown) (unknown) Globulin (units unknown) (unknown) (unknown) (no date) (unknown) (unknown) Glucose 252 H (units unknown) (unknown) (unknown) (no date) (unknown) (unknown) Glucose (units unknown) (unknown) (unknown) (no date) (unknown) (unknown) HLD and Afib with RVR (on Xarelto) who was admitted with Afib/RVR and c/f LLE (units unknown) (unknown) (unknown) (no date) (unknown) (unknown) Hct 39.8 L (units unknown) (unknown) (unknown) (no date) (unknown) (unknown) Hct 43.2 (units unknown) (unknown) (unknown) (no date) (unknown) (unknown) Hct (units unknown) (unknown) (unknown) (no date) (unknown) (unknown) Heart attack (units unknown) (unknown) (unknown) (no date) (unknown) (unknown) Hemoglobin A1c Cancelled (units unknown) (unknown) (unknown) (no date) (unknown) (unknown) Hemoglobin A1c (units unknown) (unknown) (unknown) (no date) (unknown) (unknown) Hgb 13.5 (units unknown) (unknown) (unknown) (no date) (unknown) (unknown) Hgb 14.6 (units unknown) (unknown) (unknown) (no date) (unknown) (unknown) Hgb (units unknown) (unknown) (unknown) (no date) (unknown) (unknown) History of Present Illness (units unknown) (unknown) (unknown) (no date) (unknown) (unknown) History of hernia repair (units unknown) (unknown) (unknown) (no date) (unknown) (unknown) History of neck surgery (units unknown) (unknown) (unknown) (no date) (unknown) (unknown) Home Medications (units unknown) (unknown) (unknown) (no date) (unknown) (unknown) Human Metapneumovir PCR Not detected (units unknown) (unknown) (unknown) (no date) (unknown) (unknown) Human Metapneumovir PCR (units unknown) (unknown) (unknown) (no date) (unknown) (unknown) Hyperlipidemia (units unknown) (unknown) (unknown) (no date) (unknown) (unknown) Hypertension (units unknown) (unknown) (unknown) (no date) (unknown) (unknown) IF CAMERA ACTIVATED, patient seen via real-time interactive audiovisual (units unknown) (unknown) (unknown) (no date) (unknown) (unknown) INR 1.4 H (units unknown) (unknown) (unknown) (no date) (unknown) (unknown) INR 1.7 H (units unknown) (unknown) (unknown) (no date) (unknown) (unknown) INR (units unknown) (unknown) (unknown) (no date) (unknown) (unknown) Influenza A (RT-PCR) Flu a negative (units unknown) (unknown) (unknown) (no date) (unknown) (unknown) Influenza A (RT-PCR) (units unknown) (unknown) (unknown) (no date) (unknown) (unknown) Influenza B (RT-PCR) Flu b negative (units unknown) (unknown) (unknown) (no date) (unknown) (unknown) Influenza B (RT-PCR) (units unknown) (unknown) (unknown) (no date) (unknown) (unknown) Influenza Type A (PCR) Not detected (units unknown) (unknown) (unknown) (no date) (unknown) (unknown) Influenza Type A (PCR) (units unknown) (unknown) (unknown) (no date) (unknown) (unknown) Influenza Type B (PCR) Not detected (units unknown) (unknown) (unknown) (no date) (unknown) (unknown) Influenza Type B (PCR) (units unknown) (unknown) (unknown) (no date) (unknown) (unknown) Insulin Glargine 100 Unit/Ml 3ml Pen SUBCUT 12 unit (units unknown) (unknown) (unknown) (no date) (unknown) (unknown) Insulin Glargine 12 unit 01/15/23 21:00 01/15/23 21:37 (units unknown) (unknown) (unknown) (no date) (unknown) (unknown) Insulin Human Lispro 0 unit 01/15/23 21:00 01/15/23 21:36 (units unknown) (unknown) (unknown) (no date) (unknown) (unknown) Insulin Lispro 100 Unit/Ml 3ml Vial SUBCUT 2 unit (units unknown) (unknown) (unknown) (no date) (unknown) (unknown) [address] [address] (units unknown) (unknown) (unknown) (no date) (unknown) (unknown) Itching (units unknown) (unknown) (unknown) (no date) (unknown) (unknown) Laboratory Results - last 24 hr (units unknown) (unknown) (unknown) (no date) (unknown) (unknown) Labs (units unknown) (unknown) (unknown) (no date) (unknown) (unknown) Labs: (units unknown) (unknown) (unknown) (no date) (unknown) (unknown) Lactate 1.0 (units unknown) (unknown) (unknown) (no date) (unknown) (unknown) Lactate 1.4 (units unknown) (unknown) (unknown) (no date) (unknown) (unknown) Lactate 3.2 H (units unknown) (unknown) (unknown) (no date) (unknown) (unknown) Lactate (units unknown) (unknown) (unknown) (no date) (unknown) (unknown) Lipase 367 H (units unknown) (unknown) (unknown) (no date) (unknown) (unknown) Lipase (units unknown) (unknown) (unknown) (no date) (unknown) (unknown) Lymph # (Auto) 1400 (units unknown) (unknown) (unknown) (no date) (unknown) (unknown) Lymph # (Auto) 600 L (units unknown) (unknown) (unknown) (no date) (unknown) (unknown) Lymph # (Auto) (units unknown) (unknown) (unknown) (no date) (unknown) (unknown) Lymph % (Auto) 6.1 L (units unknown) (unknown) (unknown) (no date) (unknown) (unknown) Lymph % (Auto) 9.0 L (units unknown) (unknown) (unknown) (no date) (unknown) (unknown) Lymph % (Auto) (units unknown) (unknown) (unknown) (no date) (unknown) (unknown) M. pneumoniae (PCR) Not detected (units unknown) (unknown) (unknown) (no date) (unknown) (unknown) M. pneumoniae (PCR) (units unknown) (unknown) (unknown) (no date) (unknown) (unknown) MCH 29.3 (units unknown) (unknown) (unknown) (no date) (unknown) (unknown) MCH 29.5 (units unknown) (unknown) (unknown) (no date) (unknown) (unknown) MCH (units unknown) (unknown) (unknown) (no date) (unknown) (unknown) MCHC 33.8 (units unknown) (unknown) (unknown) (no date) (unknown) (unknown) MCHC 33.9 (units unknown) (unknown) (unknown) (no date) (unknown) (unknown) MCHC (units unknown) (unknown) (unknown) (no date) (unknown) (unknown) MCV 86.5 (units unknown) (unknown) (unknown) (no date) (unknown) (unknown) MCV 86.9 (units unknown) (unknown) (unknown) (no date) (unknown) (unknown) MCV (units unknown) (unknown) (unknown) (no date) (unknown) (unknown) Magnesium 1.2 L (units unknown) (unknown) (unknown) (no date) (unknown) (unknown) Magnesium 1.9 (units unknown) (unknown) (unknown) (no date) (unknown) (unknown) Magnesium (units unknown) (unknown) (unknown) (no date) (unknown) (unknown) Medical History (Updated 01/16/23 @ 06:48 by Judy Alvarado) (units unknown) (unknown) (unknown) (no date) (unknown) (unknown) Medications: (units unknown) (unknown) (unknown) (no date) (unknown) (unknown) [place] # (Auto) 1500 H (units unknown) (unknown) (unknown) (no date) (unknown) (unknown) [place] # (Auto) 800 (units unknown) (unknown) (unknown) (no date) (unknown) (unknown) [place] # (Auto) (units unknown) (unknown) (unknown) (no date) (unknown) (unknown) [place] % (Auto) 8.2 (units unknown) (unknown) (unknown) (no date) (unknown) (unknown) [place] % (Auto) 9.2 (units unknown) (unknown) (unknown) (no date) (unknown) (unknown) [place] % (Auto) (units unknown) (unknown) (unknown) (no date) (unknown) (unknown) Mother No significant medical problems (units unknown) (unknown) (unknown) (no date) (unknown) (unknown) NT-Pro-B Natriuret Pep 2810 H (units unknown) (unknown) (unknown) (no date) (unknown) (unknown) NT-Pro-B Natriuret Pep 3710 H (units unknown) (unknown) (unknown) (no date) (unknown) (unknown) NT-Pro-B Natriuret Pep (units unknown) (unknown) (unknown) (no date) (unknown) (unknown) Narrative (units unknown) (unknown) (unknown) (no date) (unknown) (unknown) Narrative: (units unknown) (unknown) (unknown) (no date) (unknown) (unknown) Nasal Screen MRSA (PCR) Not detected (units unknown) (unknown) (unknown) (no date) (unknown) (unknown) Nasal Screen MRSA (PCR) (units unknown) (unknown) (unknown) (no date) (unknown) (unknown) Neuropathy of both feet (units unknown) (unknown) (unknown) (no date) (unknown) (unknown) Neut # (Auto) 95831 H (units unknown) (unknown) (unknown) (no date) (unknown) (unknown) Neut # (Auto) 8500 H (units unknown) (unknown) (unknown) (no date) (unknown) (unknown) Neut # (Auto) (units unknown) (unknown) (unknown) (no date) (unknown) (unknown) Neut % (Auto) 81.5 H (units unknown) (unknown) (unknown) (no date) (unknown) (unknown) Neut % (Auto) 85.4 H (units unknown) (unknown) (unknown) (no date) (unknown) (unknown) Neut % (Auto) (units unknown) (unknown) (unknown) (no date) (unknown) (unknown) Objective (units unknown) (unknown) (unknown) (no date) (unknown) (unknown) Other participants/roles: RN (units unknown) (unknown) (unknown) (no date) (unknown) (unknown) Oxygen Delivery Method Room Air (units unknown) (unknown) (unknown) (no date) (unknown) (unknown) Oxygen Delivery Method (units unknown) (unknown) (unknown) (no date) (unknown) (unknown) Oxygen Flow Rate 0 (units unknown) (unknown) (unknown) (no date) (unknown) (unknown) PFSH (units unknown) (unknown) (unknown) (no date) (unknown) (unknown) PT 16.4 H (units unknown) (unknown) (unknown) (no date) (unknown) (unknown) PT 19.2 H (units unknown) (unknown) (unknown) (no date) (unknown) (unknown) PT (units unknown) (unknown) (unknown) (no date) (unknown) (unknown) Parainfluenza 1 (PCR) Not detected (units unknown) (unknown) (unknown) (no date) (unknown) (unknown) Parainfluenza 1 (PCR) (units unknown) (unknown) (unknown) (no date) (unknown) (unknown) Parainfluenza 2 (PCR) Not detected (units unknown) (unknown) (unknown) (no date) (unknown) (unknown) Parainfluenza 2 (PCR) (units unknown) (unknown) (unknown) (no date) (unknown) (unknown) Parainfluenza 3 (PCR) Not detected (units unknown) (unknown) (unknown) (no date) (unknown) (unknown) Parainfluenza 3 (PCR) (units unknown) (unknown) (unknown) (no date) (unknown) (unknown) Parainfluenza 4 (PCR) Not detected (units unknown) (unknown) (unknown) (no date) (unknown) (unknown) Parainfluenza 4 (PCR) (units unknown) (unknown) (unknown) (no date) (unknown) (unknown) Patient Location: ICU (units unknown) (unknown) (unknown) (no date) (unknown) (unknown) Patient: Arvind Brock MR#: [id number] (units unknown) (unknown) (unknown) (no date) (unknown) (unknown) Piperacillin Sod/Tazobactam 100 mls @ 25 mls/hr 01/16/23 01:00 01/16/23 05:34 (units unknown) (unknown) (unknown) (no date) (unknown) (unknown) Plt Count 121 L (units unknown) (unknown) (unknown) (no date) (unknown) (unknown) Plt Count 162 (units unknown) (unknown) (unknown) (no date) (unknown) (unknown) Plt Count (units unknown) (unknown) (unknown) (no date) (unknown) (unknown) Potassium 4.5 (units unknown) (unknown) (unknown) (no date) (unknown) (unknown) Potassium (units unknown) (unknown) (unknown) (no date) (unknown) (unknown) Procalcitonin 0.50 (units unknown) (unknown) (unknown) (no date) (unknown) (unknown) Procalcitonin (units unknown) (unknown) (unknown) (no date) (unknown) (unknown) Protocol (units unknown) (unknown) (unknown) (no date) (unknown) (unknown) Provider location (State): [place] (units unknown) (unknown) (unknown) (no date) (unknown) (unknown) Provider: Judy Alvarado (units unknown) (unknown) (unknown) (no date) (unknown) (unknown) Pulse Oximetry 95 95 (units unknown) (unknown) (unknown) (no date) (unknown) (unknown) Pulse Oximetry 95 96 (units unknown) (unknown) (unknown) (no date) (unknown) (unknown) Pulse Oximetry 95 (units unknown) (unknown) (unknown) (no date) (unknown) (unknown) Pulse Oximetry 96 96 (units unknown) (unknown) (unknown) (no date) (unknown) (unknown) Pulse Oximetry 96 (units unknown) (unknown) (unknown) (no date) (unknown) (unknown) Pulse Oximetry 97 97 (units unknown) (unknown) (unknown) (no date) (unknown) (unknown) Pulse Oximetry 97 (units unknown) (unknown) (unknown) (no date) (unknown) (unknown) Pulse Rate 86 96 H (units unknown) (unknown) (unknown) (no date) (unknown) (unknown) Pulse Rate 86 (units unknown) (unknown) (unknown) (no date) (unknown) (unknown) Pulse Rate 88 98 H (units unknown) (unknown) (unknown) (no date) (unknown) (unknown) Pulse Rate 91 H 102 H (units unknown) (unknown) (unknown) (no date) (unknown) (unknown) Pulse Rate 91 H (units unknown) (unknown) (unknown) (no date) (unknown) (unknown) Pulse Rate 92 H 89 (units unknown) (unknown) (unknown) (no date) (unknown) (unknown) Pulse Rate 92 H (units unknown) (unknown) (unknown) (no date) (unknown) (unknown) Pulse Rate 93 H (units unknown) (unknown) (unknown) (no date) (unknown) (unknown) Pulse Rate 96 H 92 H (units unknown) (unknown) (unknown) (no date) (unknown) (unknown) Pulse Rate 97 H (units unknown) (unknown) (unknown) (no date) (unknown) (unknown) Q6HR PRN Administration (units unknown) (unknown) (unknown) (no date) (unknown) (unknown) Q8H DEIDRA Infusion (units unknown) (unknown) (unknown) (no date) (unknown) (unknown) RBC 4.58 (units unknown) (unknown) (unknown) (no date) (unknown) (unknown) RBC 5.00 (units unknown) (unknown) (unknown) (no date) (unknown) (unknown) RBC (units unknown) (unknown) (unknown) (no date) (unknown) (unknown) RDW 15.3 H (units unknown) (unknown) (unknown) (no date) (unknown) (unknown) RDW (units unknown) (unknown) (unknown) (no date) (unknown) (unknown) RSV (PCR) Negative (units unknown) (unknown) (unknown) (no date) (unknown) (unknown) RSV (PCR) Not detected (units unknown) (unknown) (unknown) (no date) (unknown) (unknown) RSV (PCR) (units unknown) (unknown) (unknown) (no date) (unknown) (unknown) Respiratory Rate 25 H (units unknown) (unknown) (unknown) (no date) (unknown) (unknown) Respiratory Rate 26 H (units unknown) (unknown) (unknown) (no date) (unknown) (unknown) Respiratory Rate 27 H 26 H (units unknown) (unknown) (unknown) (no date) (unknown) (unknown) Respiratory Rate 27 H 32 H (units unknown) (unknown) (unknown) (no date) (unknown) (unknown) Respiratory Rate 28 H 29 H (units unknown) (unknown) (unknown) (no date) (unknown) (unknown) Respiratory Rate 29 H 31 H (units unknown) (unknown) (unknown) (no date) (unknown) (unknown) Respiratory Rate 31 H 32 H (units unknown) (unknown) (unknown) (no date) (unknown) (unknown) Respiratory Rate 31 H (units unknown) (unknown) (unknown) (no date) (unknown) (unknown) Respiratory Rate 32 H (units unknown) (unknown) (unknown) (no date) (unknown) (unknown) SARS-CoV-2 (PCR) Negative (units unknown) (unknown) (unknown) (no date) (unknown) (unknown) SARS-CoV-2 (PCR) Not detected (units unknown) (unknown) (unknown) (no date) (unknown) (unknown) SARS-CoV-2 (PCR) (units unknown) (unknown) (unknown) (no date) (unknown) (unknown) Sennosides 17.2 mg 01/15/23 21:00 01/15/23 21:43 (units unknown) (unknown) (unknown) (no date) (unknown) (unknown) Sennosides 8.6 Mg Tablet PO Not Given (units unknown) (unknown) (unknown) (no date) (unknown) (unknown) Signed By:<Electronically signed by Judy Alvarado> (units unknown) (unknown) (unknown) (no date) (unknown) (unknown) Smoking Status: Never smoker (units unknown) (unknown) (unknown) (no date) (unknown) (unknown) Social History (units unknown) (unknown) (unknown) (no date) (unknown) (unknown) Sod 3.375 gm/ Sodium Chloride IV Infused (units unknown) (unknown) (unknown) (no date) (unknown) (unknown) Sodium 128 L (units unknown) (unknown) (unknown) (no date) (unknown) (unknown) Sodium (units unknown) (unknown) (unknown) (no date) (unknown) (unknown) Status: Acute (units unknown) (unknown) (unknown) (no date) (unknown) (unknown) Surgical History (units unknown) (unknown) (unknown) (no date) (unknown) (unknown) TSH 1.23 (units unknown) (unknown) (unknown) (no date) (unknown) (unknown) TSH (units unknown) (unknown) (unknown) (no date) (unknown) (unknown) TTE from last admission with EF 35-40%, global hypokinesis of LV. CXR on (units unknown) (unknown) (unknown) (no date) (unknown) (unknown) Teleintensivist Consult Note (units unknown) (unknown) (unknown) (no date) (unknown) (unknown) Temperature 98.6 F (units unknown) (unknown) (unknown) (no date) (unknown) (unknown) Temperature 99.4 F (units unknown) (unknown) (unknown) (no date) (unknown) (unknown) Temperature (units unknown) (unknown) (unknown) (no date) (unknown) (unknown) Total Bilirubin 1.2 (units unknown) (unknown) (unknown) (no date) (unknown) (unknown) Total Bilirubin (units unknown) (unknown) (unknown) (no date) (unknown) (unknown) Total Creatine Kinase 133 (units unknown) (unknown) (unknown) (no date) (unknown) (unknown) Total Creatine Kinase (units unknown) (unknown) (unknown) (no date) (unknown) (unknown) Total Protein 7.7 (units unknown) (unknown) (unknown) (no date) (unknown) (unknown) Total Protein (units unknown) (unknown) (unknown) (no date) (unknown) (unknown) Trade Name Freq PRN Reason Stop Dose Admin (units unknown) (unknown) (unknown) (no date) (unknown) (unknown) Troponin I 0.016 (units unknown) (unknown) (unknown) (no date) (unknown) (unknown) Troponin I 0.248 H* (units unknown) (unknown) (unknown) (no date) (unknown) (unknown) Troponin I 0.251 H* (units unknown) (unknown) (unknown) (no date) (unknown) (unknown) Troponin I (units unknown) (unknown) (unknown) (no date) (unknown) (unknown) Unable to view LLE well but obvious erythema notable. (units unknown) (unknown) (unknown) (no date) (unknown) (unknown) VBG Base Excess -4.0 L (units unknown) (unknown) (unknown) (no date) (unknown) (unknown) VBG Base Excess (units unknown) (unknown) (unknown) (no date) (unknown) (unknown) VBG HCO3 21 L (units unknown) (unknown) (unknown) (no date) (unknown) (unknown) VBG HCO3 (units unknown) (unknown) (unknown) (no date) (unknown) (unknown) VBG O2 Saturation 69 L (units unknown) (unknown) (unknown) (no date) (unknown) (unknown) VBG O2 Saturation (units unknown) (unknown) (unknown) (no date) (unknown) (unknown) VBG Total CO2 21 L (units unknown) (unknown) (unknown) (no date) (unknown) (unknown) VBG Total CO2 (units unknown) (unknown) (unknown) (no date) (unknown) (unknown) VBG pCO2 30.5 L (units unknown) (unknown) (unknown) (no date) (unknown) (unknown) VBG pCO2 (units unknown) (unknown) (unknown) (no date) (unknown) (unknown) VBG pH 7.44 H (units unknown) (unknown) (unknown) (no date) (unknown) (unknown) VBG pH (units unknown) (unknown) (unknown) (no date) (unknown) (unknown) VBG pO2 34 L (units unknown) (unknown) (unknown) (no date) (unknown) (unknown) VBG pO2 (units unknown) (unknown) (unknown) (no date) (unknown) (unknown) Visit Medications (administered) (units unknown) (unknown) (unknown) (no date) (unknown) (unknown) Vital Signs (units unknown) (unknown) (unknown) (no date) (unknown) (unknown) WBC 15.9 H (units unknown) (unknown) (unknown) (no date) (unknown) (unknown) WBC 9.9 (units unknown) (unknown) (unknown) (no date) (unknown) (unknown) WBC (units unknown) (unknown) (unknown) (no date) (unknown) (unknown) Zosyn, cultures sent. Patient also notes a 'scratchy' throat for 1 week but (units unknown) (unknown) (unknown) (no date) (unknown) (unknown) [Embedded Image Not Available] (units unknown) (unknown) (unknown) (no date) (unknown) (unknown) admission with e/o pulmonary edema. (units unknown) (unknown) (unknown) (no date) (unknown) (unknown) alcohol intake: never (units unknown) (unknown) (unknown) (no date) (unknown) (unknown) communication: Camera activated (units unknown) (unknown) (unknown) (no date) (unknown) (unknown) control, now in the 80s with occasional episodes up to the 120s/130s. Started on (units unknown) (unknown) (unknown) (no date) (unknown) (unknown) household members: spouse (units unknown) (unknown) (unknown) (no date) (unknown) (unknown) infection. At home was noted to have several days of fevers as well as LLE (units unknown) (unknown) (unknown) (no date) (unknown) (unknown) insulin glargine 100 unit/mL subcutaneous solution (Lantus U-100 Insulin) 12 (units unknown) (unknown) (unknown) (no date) (unknown) (unknown) lisinopril 5 mg tablet 5 mg PO DAILY 90 days #90 tabs 12/21/22 [Rx Confirmed (units unknown) (unknown) (unknown) (no date) (unknown) (unknown) metformin 500 mg tablet 500 mg PO BID 05/11/20 [History Confirmed 01/15/23] (units unknown) (unknown) (unknown) (no date) (unknown) (unknown) metoprolol succinate 50 mg tablet,extended release 24 hr 50 mg PO BID 90 days (units unknown) (unknown) (unknown) (no date) (unknown) (unknown) occupational status: employed (units unknown) (unknown) (unknown) (no date) (unknown) (unknown) redness/swelling, no pain. Patient required initiation of Diltiazem drip for HR (units unknown) (unknown) (unknown) (no date) (unknown) (unknown) reports no pain, able to swallow liquids/solids. (units unknown) (unknown) (unknown) (no date) (unknown) (unknown) rivaroxaban 20 mg tablet (Xarelto) 20 mg PO QPM 05/11/20 [History Confirmed (units unknown) (unknown) (unknown) (no date) (unknown) (unknown) unit SUBCUT BEDTIME 05/11/20 [History Confirmed 01/15/23] (units unknown) (unknown) Result panel 455 (unknown) (no date) (unknown) (unknown) Negative (units unknown) (unknown) (unknown) (no date) (unknown) (unknown) Negative (units unknown) (unknown) Result panel 456 (unknown) (no date) (unknown) (unknown) (no value) (units unknown) (unknown) (unknown) (no date) (unknown) (unknown) NO GROWTH AFTER 24 HOURS (units unknown) (unknown) Result panel 457 (unknown) (no date) (unknown) (unknown) 12.3 % (unknown) (unknown) (no date) (unknown) (unknown) 12.3 % (unknown) (unknown) (no date) (unknown) (unknown) 306 mg/dl (unknown) (unknown) (no date) (unknown) (unknown) 306 mg/dl (unknown) Result panel 458 (unknown) (no date) (unknown) (unknown) 0.8 % (unknown) (unknown) (no date) (unknown) (unknown) 100 /ul (unknown) (unknown) (no date) (unknown) (unknown) 100 /ul (unknown) (unknown) (no date) (unknown) (unknown) 12.9 g/dl (unknown) (unknown) (no date) (unknown) (unknown) 126 x10 3/ul (unknown) (unknown) (no date) (unknown) (unknown) 13.6 % (unknown) (unknown) (no date) (unknown) (unknown) 13.9 % (unknown) (unknown) (no date) (unknown) (unknown) 15.3 % (unknown) (unknown) (no date) (unknown) (unknown) 2.2 % (unknown) (unknown) (no date) (unknown) (unknown) 29.5 pg (unknown) (unknown) (no date) (unknown) (unknown) 34.1 % (unknown) (unknown) (no date) (unknown) (unknown) 37.9 % (unknown) (unknown) (no date) (unknown) (unknown) 4.38 x10 6/ul (unknown) (unknown) (no date) (unknown) (unknown) 4700 /ul (unknown) (unknown) (no date) (unknown) (unknown) 6.8 x10 3/ul (unknown) (unknown) (no date) (unknown) (unknown) 69.5 % (unknown) (unknown) (no date) (unknown) (unknown) 86.6 fl (unknown) (unknown) (no date) (unknown) (unknown) 900 /ul (unknown) (unknown) (no date) (unknown) (unknown) 900 /ul (unknown) Result panel 459 (unknown) (no date) (unknown) (unknown) 1.8 mg/dl (unknown) Result panel 460 (unknown) (no date) (unknown) (unknown) > 60 ml/min (unknown) (unknown) (no date) (unknown) (unknown) > 60 ml/min (unknown) (unknown) (no date) (unknown) (unknown) 0.9 (units unknown) (unknown) (unknown) (no date) (unknown) (unknown) 1.05 mg/dl (unknown) (unknown) (no date) (unknown) (unknown) 1.2 mg/dl (unknown) (unknown) (no date) (unknown) (unknown) 101 mmol/l (unknown) (unknown) (no date) (unknown) (unknown) 107 mg/dl (unknown) (unknown) (no date) (unknown) (unknown) 107 mg/dl (unknown) (unknown) (no date) (unknown) (unknown) 133 mmol/l (unknown) (unknown) (no date) (unknown) (unknown) 17.1 (units unknown) (unknown) (unknown) (no date) (unknown) (unknown) 18 mg/dl (unknown) (unknown) (no date) (unknown) (unknown) 24 mmol/l (unknown) (unknown) (no date) (unknown) (unknown) 3.1 g/dl (unknown) (unknown) (no date) (unknown) (unknown) 3.3 g/dl (unknown) (unknown) (no date) (unknown) (unknown) 3.8 mmol/l (unknown) (unknown) (no date) (unknown) (unknown) 35 iu/l (unknown) (unknown) (no date) (unknown) (unknown) 49 iu/l (unknown) (unknown) (no date) (unknown) (unknown) 6.4 g/dl (unknown) (unknown) (no date) (unknown) (unknown) 8.2 mg/dl (unknown) (unknown) (no date) (unknown) (unknown) 80 u/l (unknown) Result panel 461 (unknown) (no date) (unknown) (unknown) No growth. (units unknown) (unknown) Result panel 462 (unknown) (no date) (unknown) (unknown) (no value) (units unknown) (unknown) (unknown) (no date) (unknown) (unknown) (past 8 hours): (units unknown) (unknown) (unknown) (no date) (unknown) (unknown) -A1c has been ordered, A1c machine has been down (units unknown) (unknown) (unknown) (no date) (unknown) (unknown) -BMI 30.8 (units unknown) (unknown) (unknown) (no date) (unknown) (unknown) -ED : BP 193/91, 183/84, (units unknown) (unknown) (unknown) (no date) (unknown) (unknown) -EKG: AFib RVR rate of 169, negative acute ST changes, depression in lead 1 and (units unknown) (unknown) (unknown) (no date) (unknown) (unknown) -HR increasing to 130's at rest (units unknown) (unknown) (unknown) (no date) (unknown) (unknown) -In ED Hr up to 209 (units unknown) (unknown) (unknown) (no date) (unknown) (unknown) -Mag 1.2 ordered 2 g rider and now 1.9 (units unknown) (unknown) (unknown) (no date) (unknown) (unknown) -SOFA:2, febrile, tachycardic, tachypneic (units unknown) (unknown) (unknown) (no date) (unknown) (unknown) -WBC 15.9 on admission, now normal (units unknown) (unknown) (unknown) (no date) (unknown) (unknown) -admit continued to have a low-grade fever 100.9, developed hypotension 102/59, (units unknown) (unknown) (unknown) (no date) (unknown) (unknown) -admit hypotension 102/59, 98/54, map 75 (units unknown) (unknown) (unknown) (no date) (unknown) (unknown) -blood sugar checks a.c. HS, with sliding-scale coverage, continue Lantus (units unknown) (unknown) (unknown) (no date) (unknown) (unknown) -continue Xarelto (units unknown) (unknown) (unknown) (no date) (unknown) (unknown) -continue vanc and zosyn, monitor for DM (units unknown) (unknown) (unknown) (no date) (unknown) (unknown) -dietary consult ordered regarding nutritional education and information for (units unknown) (unknown) (unknown) (no date) (unknown) (unknown) -holding patient's lisinopril due to sepsis (units unknown) (unknown) (unknown) (no date) (unknown) (unknown) -initially on levophed drip which was weaned off (units unknown) (unknown) (unknown) (no date) (unknown) (unknown) -last echo 11/2022 EF 35-40% (units unknown) (unknown) (unknown) (no date) (unknown) (unknown) -left lower extremity ultrasound negative for DVT (units unknown) (unknown) (unknown) (no date) (unknown) (unknown) -no chest pain or EKG changes (units unknown) (unknown) (unknown) (no date) (unknown) (unknown) -now downtrending (units unknown) (unknown) (unknown) (no date) (unknown) (unknown) -patient admitted to the ICU/tele head nurse (units unknown) (unknown) (unknown) (no date) (unknown) (unknown) -patient admitted under diabetic protocol (units unknown) (unknown) (unknown) (no date) (unknown) (unknown) -patient had a history of urticaria with a previous dosage of Zosyn in 2020, (units unknown) (unknown) (unknown) (no date) (unknown) (unknown) -patient has been noncompliant with Cardiology follow-up and medications (units unknown) (unknown) (unknown) (no date) (unknown) (unknown) -patient has diabetes with a history of osteomyelitis, 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 (units unknown) (unknown) (unknown) (no date) (unknown) (unknown) -restarted metoprolol tart 25mg q6h, hold for hypotension (units unknown) (unknown) (unknown) (no date) (unknown) (unknown) -the patient is at much higher risk for medical and surgical complications due (units unknown) (unknown) (unknown) (no date) (unknown) (unknown) -trop up to 0.251, likely demand ischemia from sepsis and A-fib RVR (units unknown) (unknown) (unknown) (no date) (unknown) (unknown) [id number] (units unknown) (unknown) (unknown) (no date) (unknown) (unknown) 01/15/23 01/16/23 01/17/23 (units unknown) (unknown) (unknown) (no date) (unknown) (unknown) 01/17/23 01/17/23 (units unknown) (unknown) (unknown) (no date) (unknown) (unknown) 01/17/23 04:51 (units unknown) (unknown) (unknown) (no date) (unknown) (unknown) 01/17/23 (units unknown) (unknown) (unknown) (no date) (unknown) (unknown) 04:00 01/17/23 (units unknown) (unknown) (unknown) (no date) (unknown) (unknown) 04:51 04:51 (units unknown) (unknown) (unknown) (no date) (unknown) (unknown) 08:00 (units unknown) (unknown) (unknown) (no date) (unknown) (unknown) 1. Atrial fibrillation with RVR, acute on chronic, present on admission, RVR (units unknown) (unknown) (unknown) (no date) (unknown) (unknown) 2. Sepsis without septic shock, secondary to left leg cellulitis, acute, present (units unknown) (unknown) (unknown) (no date) (unknown) (unknown) 20:51 09:44 04:51 (units unknown) (unknown) (unknown) (no date) (unknown) (unknown) 3. Essential hypertension, with hypertensive urgency, acute on chronic, present (units unknown) (unknown) (unknown) (no date) (unknown) (unknown) 3rd toe amputation in 2020 (units unknown) (unknown) (unknown) (no date) (unknown) (unknown) 4. Type 2 diabetes insulin-dependent, with hyperglycemia, acute on chronic, with (units unknown) (unknown) (unknown) (no date) (unknown) (unknown) 5. Overweight, mild, acute on chronic, present on admission (units unknown) (unknown) (unknown) (no date) (unknown) (unknown) 6. Elevated troponin (units unknown) (unknown) (unknown) (no date) (unknown) (unknown) 98/54, map 75, HR 86 Afib, RR 20, O2 saturation 94% (units unknown) (unknown) (unknown) (no date) (unknown) (unknown) ALT 35 (units unknown) (unknown) (unknown) (no date) (unknown) (unknown) ALT (units unknown) (unknown) (unknown) (no date) (unknown) (unknown) AST 49 (units unknown) (unknown) (unknown) (no date) (unknown) (unknown) AST (units unknown) (unknown) (unknown) (no date) (unknown) (unknown) Abdomen: Soft nontender, negative for organomegaly, or masses. Bowel sounds (units unknown) (unknown) (unknown) (no date) (unknown) (unknown) Afib (units unknown) (unknown) (unknown) (no date) (unknown) (unknown) Age/Sex: 67 / M (units unknown) (unknown) (unknown) (no date) (unknown) (unknown) Albumin 3.1 L (units unknown) (unknown) (unknown) (no date) (unknown) (unknown) Albumin (units unknown) (unknown) (unknown) (no date) (unknown) (unknown) Albumin/Globulin Ratio 0.9 L (units unknown) (unknown) (unknown) (no date) (unknown) (unknown) Albumin/Globulin Ratio (units unknown) (unknown) (unknown) (no date) (unknown) (unknown) Alkaline Phosphatase 80 (units unknown) (unknown) (unknown) (no date) (unknown) (unknown) Alkaline Phosphatase (units unknown) (unknown) (unknown) (no date) (unknown) (unknown) Assessment + Plan narrative: (units unknown) (unknown) (unknown) (no date) (unknown) (unknown) Assessment + Plan (units unknown) (unknown) (unknown) (no date) (unknown) (unknown) BUN 18 (units unknown) (unknown) (unknown) (no date) (unknown) (unknown) BUN (units unknown) (unknown) (unknown) (no date) (unknown) (unknown) BUN/Creatinine Ratio 17.1 (units unknown) (unknown) (unknown) (no date) (unknown) (unknown) BUN/Creatinine Ratio (units unknown) (unknown) (unknown) (no date) (unknown) (unknown) Baso # (Auto) 100 (units unknown) (unknown) (unknown) (no date) (unknown) (unknown) Baso # (Auto) (units unknown) (unknown) (unknown) (no date) (unknown) (unknown) Baso % (Auto) 0.8 (units unknown) (unknown) (unknown) (no date) (unknown) (unknown) Baso % (Auto) (units unknown) (unknown) (unknown) (no date) (unknown) (unknown) Blood Pressure 120/74 129/79 (units unknown) (unknown) (unknown) (no date) (unknown) (unknown) COVID negative. (units unknown) (unknown) (unknown) (no date) (unknown) (unknown) Calcium 8.2 L (units unknown) (unknown) (unknown) (no date) (unknown) (unknown) Calcium (units unknown) (unknown) (unknown) (no date) (unknown) (unknown) Carbon Dioxide 24 (units unknown) (unknown) (unknown) (no date) (unknown) (unknown) Carbon Dioxide (units unknown) (unknown) (unknown) (no date) (unknown) (unknown) Cardio: regular rate and rhythm without murmur, rubs, or gallops, no carotid (units unknown) (unknown) (unknown) (no date) (unknown) (unknown) Chest: Normal AP diameter and contour without kyphoscoliosis, no nasal flaring, (units unknown) (unknown) (unknown) (no date) (unknown) (unknown) Chloride 101 (units unknown) (unknown) (unknown) (no date) (unknown) (unknown) Chloride (units unknown) (unknown) (unknown) (no date) (unknown) (unknown) Code status is full code. (units unknown) (unknown) (unknown) (no date) (unknown) (unknown) Creatinine 1.05 (units unknown) (unknown) (unknown) (no date) (unknown) (unknown) Creatinine (units unknown) (unknown) (unknown) (no date) (unknown) (unknown) : 1955 Acct:[id number] (units unknown) (unknown) (unknown) (no date) (unknown) (unknown) DVT prophylaxis with Xarelto. (units unknown) (unknown) (unknown) (no date) (unknown) (unknown) Date of Service: 01/15/23 (units unknown) (unknown) (unknown) (no date) (unknown) (unknown) Deep Vein Thrombosis/Pulmonar y Embolism Present on Admission: No (units unknown) (unknown) (unknown) (no date) (unknown) (unknown) Diabetes mellitus (units unknown) (unknown) (unknown) (no date) (unknown) (unknown) Diabetes (units unknown) (unknown) (unknown) (no date) (unknown) (unknown) Disposition: Pending improvement in LLE cellulitis and A-fib RVR. Likely 2-3 (units unknown) (unknown) (unknown) (no date) (unknown) (unknown) Eos # (Auto) 100 (units unknown) (unknown) (unknown) (no date) (unknown) (unknown) Eos # (Auto) (units unknown) (unknown) (unknown) (no date) (unknown) (unknown) Eos % (Auto) 2.2 (units unknown) (unknown) (unknown) (no date) (unknown) (unknown) Eos % (Auto) (units unknown) (unknown) (unknown) (no date) (unknown) (unknown) Estim Average Glucose 306 (units unknown) (unknown) (unknown) (no date) (unknown) (unknown) Estim Average Glucose (units unknown) (unknown) (unknown) (no date) (unknown) (unknown) Estimated GFR > 60 (units unknown) (unknown) (unknown) (no date) (unknown) (unknown) Estimated GFR (units unknown) (unknown) (unknown) (no date) (unknown) (unknown) Exam Narrative: (units unknown) (unknown) (unknown) (no date) (unknown) (unknown) Exam (units unknown) (unknown) (unknown) (no date) (unknown) (unknown) Family History (units unknown) (unknown) (unknown) (no date) (unknown) (unknown) Father Smoker (units unknown) (unknown) (unknown) (no date) (unknown) (unknown) General: Patient is a well-developed, well-nourished in no distress at this (units unknown) (unknown) (unknown) (no date) (unknown) (unknown) Globulin 3.3 (units unknown) (unknown) (unknown) (no date) (unknown) (unknown) Globulin (units unknown) (unknown) (unknown) (no date) (unknown) (unknown) Glucose 107 (units unknown) (unknown) (unknown) (no date) (unknown) (unknown) Glucose (units unknown) (unknown) (unknown) (no date) (unknown) (unknown) Group A Strep (PCR) Negative (units unknown) (unknown) (unknown) (no date) (unknown) (unknown) Group A Strep (PCR) (units unknown) (unknown) (unknown) (no date) (unknown) (unknown) HEENT: Normocephalic, atraumatic, extraocular muscles intact, oral pharynx is (units unknown) (unknown) (unknown) (no date) (unknown) (unknown) Hct 37.9 L (units unknown) (unknown) (unknown) (no date) (unknown) (unknown) Hct (units unknown) (unknown) (unknown) (no date) (unknown) (unknown) Heart attack (units unknown) (unknown) (unknown) (no date) (unknown) (unknown) Hgb 12.9 L (units unknown) (unknown) (unknown) (no date) (unknown) (unknown) Hgb A1c (Ref Lab) 12.3 H (units unknown) (unknown) (unknown) (no date) (unknown) (unknown) Hgb A1c (Ref Lab) (units unknown) (unknown) (unknown) (no date) (unknown) (unknown) Hgb (units unknown) (unknown) (unknown) (no date) (unknown) (unknown) History of hernia repair (units unknown) (unknown) (unknown) (no date) (unknown) (unknown) History of neck surgery (units unknown) (unknown) (unknown) (no date) (unknown) (unknown) Hyperlipidemia (units unknown) (unknown) (unknown) (no date) (unknown) (unknown) Hypertension (units unknown) (unknown) (unknown) (no date) (unknown) (unknown) [address] [address] (units unknown) (unknown) (unknown) (no date) (unknown) (unknown) Arvind Brokc is a 67yo M with PMH of A-fib on [facility], [facility] with peripheral (units unknown) (unknown) (unknown) (no date) (unknown) (unknown) Laboratory Results - last 24 hr (units unknown) (unknown) (unknown) (no date) (unknown) (unknown) Labs (units unknown) (unknown) (unknown) (no date) (unknown) (unknown) Labs: (units unknown) (unknown) (unknown) (no date) (unknown) (unknown) Lungs: Auscultation of all lung neff are clear without adventitious sounds, (units unknown) (unknown) (unknown) (no date) (unknown) (unknown) Lymph # (Auto) 900 L (units unknown) (unknown) (unknown) (no date) (unknown) (unknown) Lymph # (Auto) (units unknown) (unknown) (unknown) (no date) (unknown) (unknown) Lymph % (Auto) 13.9 L (units unknown) (unknown) (unknown) (no date) (unknown) (unknown) Lymph % (Auto) (units unknown) (unknown) (unknown) (no date) (unknown) (unknown) MCH 29.5 (units unknown) (unknown) (unknown) (no date) (unknown) (unknown) MCH (units unknown) (unknown) (unknown) (no date) (unknown) (unknown) MCHC 34.1 (units unknown) (unknown) (unknown) (no date) (unknown) (unknown) MCHC (units unknown) (unknown) (unknown) (no date) (unknown) (unknown) MCV 86.6 (units unknown) (unknown) (unknown) (no date) (unknown) (unknown) MCV (units unknown) (unknown) (unknown) (no date) (unknown) (unknown) Magnesium 1.8 (units unknown) (unknown) (unknown) (no date) (unknown) (unknown) Magnesium (units unknown) (unknown) (unknown) (no date) (unknown) (unknown) Medical History (Updated 01/16/23 @ 06:48 by Judy Alvarado) (units unknown) (unknown) (unknown) (no date) (unknown) (unknown) [place] # (Auto) 900 (units unknown) (unknown) (unknown) (no date) (unknown) (unknown) [place] # (Auto) (units unknown) (unknown) (unknown) (no date) (unknown) (unknown) [place] % (Auto) 13.6 (units unknown) (unknown) (unknown) (no date) (unknown) (unknown) [place] % (Auto) (units unknown) (unknown) (unknown) (no date) (unknown) (unknown) Mother No significant medical problems (units unknown) (unknown) (unknown) (no date) (unknown) (unknown) Musculoskeletal: Bilateral lower extremity edema, left greater than right, left (units unknown) (unknown) (unknown) (no date) (unknown) (unknown) Narrative (units unknown) (unknown) (unknown) (no date) (unknown) (unknown) Negative for JVD (units unknown) (unknown) (unknown) (no date) (unknown) (unknown) Neuro: Alert and orientated x3, moves all extremities, sensation to touch (units unknown) (unknown) (unknown) (no date) (unknown) (unknown) Neuropathy of both feet (units unknown) (unknown) (unknown) (no date) (unknown) (unknown) Neut # (Auto) 4700 (units unknown) (unknown) (unknown) (no date) (unknown) (unknown) Neut # (Auto) (units unknown) (unknown) (unknown) (no date) (unknown) (unknown) Neut % (Auto) 69.5 (units unknown) (unknown) (unknown) (no date) (unknown) (unknown) Neut % (Auto) (units unknown) (unknown) (unknown) (no date) (unknown) (unknown) Objective (units unknown) (unknown) (unknown) (no date) (unknown) (unknown) Oxygen Delivery Method Room Air (units unknown) (unknown) (unknown) (no date) (unknown) (unknown) Oxygen Flow Rate 0 (units unknown) (unknown) (unknown) (no date) (unknown) (unknown) PFSH (units unknown) (unknown) (unknown) (no date) (unknown) (unknown) Patient: Arvind Brock MR#: [id number] (units unknown) (unknown) (unknown) (no date) (unknown) (unknown) Plt Count 126 L (units unknown) (unknown) (unknown) (no date) (unknown) (unknown) Plt Count (units unknown) (unknown) (unknown) (no date) (unknown) (unknown) Potassium 3.8 (units unknown) (unknown) (unknown) (no date) (unknown) (unknown) Potassium (units unknown) (unknown) (unknown) (no date) (unknown) (unknown) Progress Note (units unknown) (unknown) (unknown) (no date) (unknown) (unknown) Provider: Sebas Mar D.O. (units unknown) (unknown) (unknown) (no date) (unknown) (unknown) Proxy is Almaz Brock. (units unknown) (unknown) (unknown) (no date) (unknown) (unknown) Psych: Patient has a well-kept appearance, appropriate affect, mental status (units unknown) (unknown) (unknown) (no date) (unknown) (unknown) Pulse Oximetry 96 98 (units unknown) (unknown) (unknown) (no date) (unknown) (unknown) Pulse Rate 88 88 (units unknown) (unknown) (unknown) (no date) (unknown) (unknown) Quality (units unknown) (unknown) (unknown) (no date) (unknown) (unknown) RBC 4.38 L (units unknown) (unknown) (unknown) (no date) (unknown) (unknown) RBC (units unknown) (unknown) (unknown) (no date) (unknown) (unknown) RDW 15.3 H (units unknown) (unknown) (unknown) (no date) (unknown) (unknown) RDW (units unknown) (unknown) (unknown) (no date) (unknown) (unknown) Respiratory Rate 22 28 H (units unknown) (unknown) (unknown) (no date) (unknown) (unknown) Signed By: (units unknown) (unknown) (unknown) (no date) (unknown) (unknown) Skin: Warm dry and intact without rashes, ulcerations or petechiae. (units unknown) (unknown) (unknown) (no date) (unknown) (unknown) Smoking Status: Never smoker (units unknown) (unknown) (unknown) (no date) (unknown) (unknown) Social History (units unknown) (unknown) (unknown) (no date) (unknown) (unknown) Sodium 133 L (units unknown) (unknown) (unknown) (no date) (unknown) (unknown) Sodium (units unknown) (unknown) (unknown) (no date) (unknown) (unknown) Surgical History (units unknown) (unknown) (unknown) (no date) (unknown) (unknown) Temperature 97.1 F L 97.4 F L (units unknown) (unknown) (unknown) (no date) (unknown) (unknown) Total Bilirubin 1.2 (units unknown) (unknown) (unknown) (no date) (unknown) (unknown) Total Bilirubin (units unknown) (unknown) (unknown) (no date) (unknown) (unknown) Total Protein 6.4 (units unknown) (unknown) (unknown) (no date) (unknown) (unknown) Total Protein (units unknown) (unknown) (unknown) (no date) (unknown) (unknown) VTE (units unknown) (unknown) (unknown) (no date) (unknown) (unknown) Vital Signs (units unknown) (unknown) (unknown) (no date) (unknown) (unknown) WBC 6.8 (units unknown) (unknown) (unknown) (no date) (unknown) (unknown) WBC (units unknown) (unknown) (unknown) (no date) (unknown) (unknown) [Embedded Image Not Available] (units unknown) (unknown) (unknown) (no date) (unknown) (unknown) aVL, similar in comparison to EKG from 12/18/2022, (units unknown) (unknown) (unknown) (no date) (unknown) (unknown) alcohol intake: never (units unknown) (unknown) (unknown) (no date) (unknown) (unknown) amputation. ? Patient presents with 5 days of fevers generally feeling unwell (units unknown) (unknown) (unknown) (no date) (unknown) (unknown) are present in all 4 quadrants without guarding or rebound, no CVA tenderness. (units unknown) (unknown) (unknown) (no date) (unknown) (unknown) attitude thought context and judgment are appropriate for age. (units unknown) (unknown) (unknown) (no date) (unknown) (unknown) bruit, no cardiac pulsations present. (units unknown) (unknown) (unknown) (no date) (unknown) (unknown) clear and mucous membranes are moist. Neck is supple and symmetric, trachea is (units unknown) (unknown) (unknown) (no date) (unknown) (unknown) days then home. (units unknown) (unknown) (unknown) (no date) (unknown) (unknown) dietary, lifestyle, exercise, and weight changes. (units unknown) (unknown) (unknown) (no date) (unknown) (unknown) erythematous warm to touch, cellulitis radial and pedal pulses are normal. (units unknown) (unknown) (unknown) (no date) (unknown) (unknown) he states his heart rate has been fast, fever x 5 days, patient is a poor (units unknown) (unknown) (unknown) (no date) (unknown) (unknown) historian but verbalizes that he may have had increased swelling redness and (units unknown) (unknown) (unknown) (no date) (unknown) (unknown) household members: spouse (units unknown) (unknown) (unknown) (no date) (unknown) (unknown) hyponatremia (units unknown) (unknown) (unknown) (no date) (unknown) (unknown) intact, no gross deficits noted of cranial nerves. (units unknown) (unknown) (unknown) (no date) (unknown) (unknown) midline, no adenopathy, no thyroid enlargement, nontender, no masses palpated. (units unknown) (unknown) (unknown) (no date) (unknown) (unknown) neuropathy, HTN, HLD, history of osteomyelitis, MSSA, resulting in right 3rd toe (units unknown) (unknown) (unknown) (no date) (unknown) (unknown) occupational status: employed (units unknown) (unknown) (unknown) (no date) (unknown) (unknown) on admission- stable (units unknown) (unknown) (unknown) (no date) (unknown) (unknown) on admission-resolved (units unknown) (unknown) (unknown) (no date) (unknown) (unknown) pain of the left lower extremity for the past week, nausea and vomiting on way (units unknown) (unknown) (unknown) (no date) (unknown) (unknown) patient's obesity increases the difficulty and complexity of medical and/or (units unknown) (unknown) (unknown) (no date) (unknown) (unknown) peripheral neuropathy, chronic, present on admission-uncontrol led (units unknown) (unknown) (unknown) (no date) (unknown) (unknown) placed patient on Zosyn with Benadryl to be given prior to dosage patient has (units unknown) (unknown) (unknown) (no date) (unknown) (unknown) resolved (units unknown) (unknown) (unknown) (no date) (unknown) (unknown) retractions, or tachypneic labored breathing (units unknown) (unknown) (unknown) (no date) (unknown) (unknown) such as morbidity and mortality as well as impaired wound healing. (units unknown) (unknown) (unknown) (no date) (unknown) (unknown) surgical interventions, management and increases the chances of poor outcome (units unknown) (unknown) (unknown) (no date) (unknown) (unknown) time. (units unknown) (unknown) (unknown) (no date) (unknown) (unknown) to obesity as it relates to chronic illnesses:, and acute illness. The (units unknown) (unknown) (unknown) (no date) (unknown) (unknown) to the hospital. Patient admitted to the ICU teleICU for atrial fibrillation (units unknown) (unknown) (unknown) (no date) (unknown) (unknown) tolerated well and not had any reaction. (units unknown) (unknown) (unknown) (no date) (unknown) (unknown) wheezes, rhonchi, or rales. (units unknown) (unknown) (unknown) (no date) (unknown) (unknown) with RVR, sepsis without shock secondary to left lower extremity cellulitis, (units unknown) (unknown) Result panel 463 (unknown) (no date) (unknown) (unknown) (no value) (units unknown) (unknown) (unknown) (no date) (unknown) (unknown) NO GROWTH AFTER 48 HOURS (units unknown) (unknown) Result panel 464 (unknown) (no date) (unknown) (unknown) (no value) (units unknown) (unknown) (unknown) (no date) (unknown) (unknown) (past 8 hours): (units unknown) (unknown) (unknown) (no date) (unknown) (unknown) -BMI 30.8 (units unknown) (unknown) (unknown) (no date) (unknown) (unknown) -ED : BP 193/91, 183/84, (units unknown) (unknown) (unknown) (no date) (unknown) (unknown) -EKG: AFib RVR rate of 169, negative acute ST changes, depression in lead 1 and (units unknown) (unknown) (unknown) (no date) (unknown) (unknown) -HR increasing to 130's at rest (units unknown) (unknown) (unknown) (no date) (unknown) (unknown) -In ED Hr up to 209 (units unknown) (unknown) (unknown) (no date) (unknown) (unknown) -Mag 1.2 ordered 2 g rider and now 1.9 (units unknown) (unknown) (unknown) (no date) (unknown) (unknown) -SOFA:2, febrile, tachycardic, tachypneic (units unknown) (unknown) (unknown) (no date) (unknown) (unknown) -WBC 15.9 and temop of 100.9F on admission, WBCnow normal and afebrile (units unknown) (unknown) (unknown) (no date) (unknown) (unknown) -admit hypotension 102/59, 98/54, map 75 (units unknown) (unknown) (unknown) (no date) (unknown) (unknown) -blood sugar checks a.c. HS, with sliding-scale coverage, continue Lantus (units unknown) (unknown) (unknown) (no date) (unknown) (unknown) -check A1c (units unknown) (unknown) (unknown) (no date) (unknown) (unknown) -continue Xarelto (units unknown) (unknown) (unknown) (no date) (unknown) (unknown) -continue vanc and zosyn, monitor for DM (units unknown) (unknown) (unknown) (no date) (unknown) (unknown) -dietary consult ordered regarding nutritional education and information for (units unknown) (unknown) (unknown) (no date) (unknown) (unknown) -holding patient's lisinopril due to sepsis (units unknown) (unknown) (unknown) (no date) (unknown) (unknown) -initially on levophed drip which was weaned off (units unknown) (unknown) (unknown) (no date) (unknown) (unknown) -last echo 11/2022 EF 35-40% (units unknown) (unknown) (unknown) (no date) (unknown) (unknown) -left lower extremity ultrasound negative for DVT (units unknown) (unknown) (unknown) (no date) (unknown) (unknown) -no chest pain or EKG changes (units unknown) (unknown) (unknown) (no date) (unknown) (unknown) -now downtrending (units unknown) (unknown) (unknown) (no date) (unknown) (unknown) -patient admitted to the ICU/tele head nurse (units unknown) (unknown) (unknown) (no date) (unknown) (unknown) -patient admitted under diabetic protocol (units unknown) (unknown) (unknown) (no date) (unknown) (unknown) -patient had a history of urticaria with a previous dosage of Zosyn in 2019, (units unknown) (unknown) (unknown) (no date) (unknown) (unknown) -patient has been noncompliant with Cardiology follow-up and medications (units unknown) (unknown) (unknown) (no date) (unknown) (unknown) -patient has diabetes with a history of osteomyelitis, 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 (units unknown) (unknown) (unknown) (no date) (unknown) (unknown) -the patient is at much higher risk for medical and surgical complications due (units unknown) (unknown) (unknown) (no date) (unknown) (unknown) -transitioned from metop tart 25mg q6h to metop tart 50mg BID (units unknown) (unknown) (unknown) (no date) (unknown) (unknown) -trop up to 0.251, likely demand ischemia from sepsis and A-fib RVR (units unknown) (unknown) (unknown) (no date) (unknown) (unknown) [id number] (units unknown) (unknown) (unknown) (no date) (unknown) (unknown) 01/15/23 01/16/23 01/17/23 (units unknown) (unknown) (unknown) (no date) (unknown) (unknown) 01/17/23 01/17/23 (units unknown) (unknown) (unknown) (no date) (unknown) (unknown) 01/17/23 04:51 (units unknown) (unknown) (unknown) (no date) (unknown) (unknown) 01/17/23 1641 (units unknown) (unknown) (unknown) (no date) (unknown) (unknown) 01/17/23 (units unknown) (unknown) (unknown) (no date) (unknown) (unknown) 04:00 01/17/23 (units unknown) (unknown) (unknown) (no date) (unknown) (unknown) 04:51 04:51 (units unknown) (unknown) (unknown) (no date) (unknown) (unknown) 08:00 (units unknown) (unknown) (unknown) (no date) (unknown) (unknown) 1. Atrial fibrillation with RVR, acute on chronic, present on admission, RVR (units unknown) (unknown) (unknown) (no date) (unknown) (unknown) 2. Sepsis without septic shock, secondary to left leg cellulitis, acute, present (units unknown) (unknown) (unknown) (no date) (unknown) (unknown) 20:51 09:44 04:51 (units unknown) (unknown) (unknown) (no date) (unknown) (unknown) 3. Essential hypertension, with hypertensive urgency, acute on chronic, present (units unknown) (unknown) (unknown) (no date) (unknown) (unknown) 3rd toe amputation in 2019 (units unknown) (unknown) (unknown) (no date) (unknown) (unknown) 4. Type 2 diabetes insulin-dependent, with hyperglycemia, acute on chronic, with (units unknown) (unknown) (unknown) (no date) (unknown) (unknown) 5. Overweight, mild, acute on chronic, present on admission (units unknown) (unknown) (unknown) (no date) (unknown) (unknown) 6. Elevated troponin (units unknown) (unknown) (unknown) (no date) (unknown) (unknown) ALT 35 (units unknown) (unknown) (unknown) (no date) (unknown) (unknown) ALT (units unknown) (unknown) (unknown) (no date) (unknown) (unknown) AST 49 (units unknown) (unknown) (unknown) (no date) (unknown) (unknown) AST (units unknown) (unknown) (unknown) (no date) (unknown) (unknown) Abdomen: Soft nontender, negative for organomegaly, or masses. Bowel sounds (units unknown) (unknown) (unknown) (no date) (unknown) (unknown) Afib (units unknown) (unknown) (unknown) (no date) (unknown) (unknown) Age/Sex: 67 / M (units unknown) (unknown) (unknown) (no date) (unknown) (unknown) Albumin 3.1 L (units unknown) (unknown) (unknown) (no date) (unknown) (unknown) Albumin (units unknown) (unknown) (unknown) (no date) (unknown) (unknown) Albumin/Globulin Ratio 0.9 L (units unknown) (unknown) (unknown) (no date) (unknown) (unknown) Albumin/Globulin Ratio (units unknown) (unknown) (unknown) (no date) (unknown) (unknown) Alkaline Phosphatase 80 (units unknown) (unknown) (unknown) (no date) (unknown) (unknown) Alkaline Phosphatase (units unknown) (unknown) (unknown) (no date) (unknown) (unknown) Assessment + Plan narrative: (units unknown) (unknown) (unknown) (no date) (unknown) (unknown) Assessment + Plan (units unknown) (unknown) (unknown) (no date) (unknown) (unknown) BUN 18 (units unknown) (unknown) (unknown) (no date) (unknown) (unknown) BUN (units unknown) (unknown) (unknown) (no date) (unknown) (unknown) BUN/Creatinine Ratio 17.1 (units unknown) (unknown) (unknown) (no date) (unknown) (unknown) BUN/Creatinine Ratio (units unknown) (unknown) (unknown) (no date) (unknown) (unknown) Baso # (Auto) 100 (units unknown) (unknown) (unknown) (no date) (unknown) (unknown) Baso # (Auto) (units unknown) (unknown) (unknown) (no date) (unknown) (unknown) Baso % (Auto) 0.8 (units unknown) (unknown) (unknown) (no date) (unknown) (unknown) Baso % (Auto) (units unknown) (unknown) (unknown) (no date) (unknown) (unknown) Blood Pressure 120/74 129/79 (units unknown) (unknown) (unknown) (no date) (unknown) (unknown) COVID negative. (units unknown) (unknown) (unknown) (no date) (unknown) (unknown) Calcium 8.2 L (units unknown) (unknown) (unknown) (no date) (unknown) (unknown) Calcium (units unknown) (unknown) (unknown) (no date) (unknown) (unknown) Carbon Dioxide 24 (units unknown) (unknown) (unknown) (no date) (unknown) (unknown) Carbon Dioxide (units unknown) (unknown) (unknown) (no date) (unknown) (unknown) Cardio: regular rate and rhythm without murmur, rubs, or gallops, no carotid (units unknown) (unknown) (unknown) (no date) (unknown) (unknown) Chest: Normal AP diameter and contour without kyphoscoliosis, no nasal flaring, (units unknown) (unknown) (unknown) (no date) (unknown) (unknown) Chloride 101 (units unknown) (unknown) (unknown) (no date) (unknown) (unknown) Chloride (units unknown) (unknown) (unknown) (no date) (unknown) (unknown) Code status is full code. (units unknown) (unknown) (unknown) (no date) (unknown) (unknown) Creatinine 1.05 (units unknown) (unknown) (unknown) (no date) (unknown) (unknown) Creatinine (units unknown) (unknown) (unknown) (no date) (unknown) (unknown) : 1955 Acct:[id number] (units unknown) (unknown) (unknown) (no date) (unknown) (unknown) DVT prophylaxis with Xarelto. (units unknown) (unknown) (unknown) (no date) (unknown) (unknown) Date of Service: 01/15/23 (units unknown) (unknown) (unknown) (no date) (unknown) (unknown) Deep Vein Thrombosis/Pulmonar y Embolism Present on Admission: No (units unknown) (unknown) (unknown) (no date) (unknown) (unknown) Diabetes mellitus (units unknown) (unknown) (unknown) (no date) (unknown) (unknown) Diabetes (units unknown) (unknown) (unknown) (no date) (unknown) (unknown) Disposition: Pending improvement in LLE cellulitis and A-fib RVR. Likely 1-2 (units unknown) (unknown) (unknown) (no date) (unknown) (unknown) Eos # (Auto) 100 (units unknown) (unknown) (unknown) (no date) (unknown) (unknown) Eos # (Auto) (units unknown) (unknown) (unknown) (no date) (unknown) (unknown) Eos % (Auto) 2.2 (units unknown) (unknown) (unknown) (no date) (unknown) (unknown) Eos % (Auto) (units unknown) (unknown) (unknown) (no date) (unknown) (unknown) Estim Average Glucose 306 (units unknown) (unknown) (unknown) (no date) (unknown) (unknown) Estim Average Glucose (units unknown) (unknown) (unknown) (no date) (unknown) (unknown) Estimated GFR > 60 (units unknown) (unknown) (unknown) (no date) (unknown) (unknown) Estimated GFR (units unknown) (unknown) (unknown) (no date) (unknown) (unknown) Exam Narrative: (units unknown) (unknown) (unknown) (no date) (unknown) (unknown) Exam (units unknown) (unknown) (unknown) (no date) (unknown) (unknown) Family History (units unknown) (unknown) (unknown) (no date) (unknown) (unknown) Father Smoker (units unknown) (unknown) (unknown) (no date) (unknown) (unknown) General: Patient is a well-developed, well-nourished in no distress at this (units unknown) (unknown) (unknown) (no date) (unknown) (unknown) Globulin 3.3 (units unknown) (unknown) (unknown) (no date) (unknown) (unknown) Globulin (units unknown) (unknown) (unknown) (no date) (unknown) (unknown) Glucose 107 (units unknown) (unknown) (unknown) (no date) (unknown) (unknown) Glucose (units unknown) (unknown) (unknown) (no date) (unknown) (unknown) Group A Strep (PCR) Negative (units unknown) (unknown) (unknown) (no date) (unknown) (unknown) Group A Strep (PCR) (units unknown) (unknown) (unknown) (no date) (unknown) (unknown) HEENT: Normocephalic, atraumatic, extraocular muscles intact, oral pharynx is (units unknown) (unknown) (unknown) (no date) (unknown) (unknown) HR now in 80's with po metop. Transitioned to BID dosing from q6h. Patient says (units unknown) (unknown) (unknown) (no date) (unknown) (unknown) Hct 37.9 L (units unknown) (unknown) (unknown) (no date) (unknown) (unknown) Hct (units unknown) (unknown) (unknown) (no date) (unknown) (unknown) Heart attack (units unknown) (unknown) (unknown) (no date) (unknown) (unknown) Hgb 12.9 L (units unknown) (unknown) (unknown) (no date) (unknown) (unknown) Hgb A1c (Ref Lab) 12.3 H (units unknown) (unknown) (unknown) (no date) (unknown) (unknown) Hgb A1c (Ref Lab) (units unknown) (unknown) (unknown) (no date) (unknown) (unknown) Hgb (units unknown) (unknown) (unknown) (no date) (unknown) (unknown) History of hernia repair (units unknown) (unknown) (unknown) (no date) (unknown) (unknown) History of neck surgery (units unknown) (unknown) (unknown) (no date) (unknown) (unknown) Hyperlipidemia (units unknown) (unknown) (unknown) (no date) (unknown) (unknown) Hypertension (units unknown) (unknown) (unknown) (no date) (unknown) (unknown) Interval history: (units unknown) (unknown) (unknown) (no date) (unknown) (unknown) [address] [address] (units unknown) (unknown) (unknown) (no date) (unknown) (unknown) Arvind Brock is a 67yo M with PMH of A-fib on [facility], [facility] with peripheral (units unknown) (unknown) (unknown) (no date) (unknown) (unknown) Laboratory Results - last 24 hr (units unknown) (unknown) (unknown) (no date) (unknown) (unknown) Labs (units unknown) (unknown) (unknown) (no date) (unknown) (unknown) Labs: (units unknown) (unknown) (unknown) (no date) (unknown) (unknown) Lungs: Auscultation of all lung neff are clear without adventitious sounds, (units unknown) (unknown) (unknown) (no date) (unknown) (unknown) Lymph # (Auto) 900 L (units unknown) (unknown) (unknown) (no date) (unknown) (unknown) Lymph # (Auto) (units unknown) (unknown) (unknown) (no date) (unknown) (unknown) Lymph % (Auto) 13.9 L (units unknown) (unknown) (unknown) (no date) (unknown) (unknown) Lymph % (Auto) (units unknown) (unknown) (unknown) (no date) (unknown) (unknown) MCH 29.5 (units unknown) (unknown) (unknown) (no date) (unknown) (unknown) MCH (units unknown) (unknown) (unknown) (no date) (unknown) (unknown) MCHC 34.1 (units unknown) (unknown) (unknown) (no date) (unknown) (unknown) MCHC (units unknown) (unknown) (unknown) (no date) (unknown) (unknown) MCV 86.6 (units unknown) (unknown) (unknown) (no date) (unknown) (unknown) MCV (units unknown) (unknown) (unknown) (no date) (unknown) (unknown) Magnesium 1.8 (units unknown) (unknown) (unknown) (no date) (unknown) (unknown) Magnesium (units unknown) (unknown) (unknown) (no date) (unknown) (unknown) Medical History (Updated 01/16/23 @ 06:48 by uJdy Alvarado) (units unknown) (unknown) (unknown) (no date) (unknown) (unknown) [place] # (Auto) 900 (units unknown) (unknown) (unknown) (no date) (unknown) (unknown) [place] # (Auto) (units unknown) (unknown) (unknown) (no date) (unknown) (unknown) [place] % (Auto) 13.6 (units unknown) (unknown) (unknown) (no date) (unknown) (unknown) [place] % (Auto) (units unknown) (unknown) (unknown) (no date) (unknown) (unknown) Mother No significant medical problems (units unknown) (unknown) (unknown) (no date) (unknown) (unknown) Musculoskeletal: Bilateral lower extremity edema, left greater than right, left (units unknown) (unknown) (unknown) (no date) (unknown) (unknown) Narrative (units unknown) (unknown) (unknown) (no date) (unknown) (unknown) Negative for JVD (units unknown) (unknown) (unknown) (no date) (unknown) (unknown) Neuro: Alert and orientated x3, moves all extremities, sensation to touch (units unknown) (unknown) (unknown) (no date) (unknown) (unknown) Neuropathy of both feet (units unknown) (unknown) (unknown) (no date) (unknown) (unknown) Neut # (Auto) 4700 (units unknown) (unknown) (unknown) (no date) (unknown) (unknown) Neut # (Auto) (units unknown) (unknown) (unknown) (no date) (unknown) (unknown) Neut % (Auto) 69.5 (units unknown) (unknown) (unknown) (no date) (unknown) (unknown) Neut % (Auto) (units unknown) (unknown) (unknown) (no date) (unknown) (unknown) Objective (units unknown) (unknown) (unknown) (no date) (unknown) (unknown) Oxygen Delivery Method Room Air (units unknown) (unknown) (unknown) (no date) (unknown) (unknown) Oxygen Flow Rate 0 (units unknown) (unknown) (unknown) (no date) (unknown) (unknown) PFSH (units unknown) (unknown) (unknown) (no date) (unknown) (unknown) Patient: Arvind Brock MR#: [id number] (units unknown) (unknown) (unknown) (no date) (unknown) (unknown) Plt Count 126 L (units unknown) (unknown) (unknown) (no date) (unknown) (unknown) Plt Count (units unknown) (unknown) (unknown) (no date) (unknown) (unknown) Potassium 3.8 (units unknown) (unknown) (unknown) (no date) (unknown) (unknown) Potassium (units unknown) (unknown) (unknown) (no date) (unknown) (unknown) Progress Note (units unknown) (unknown) (unknown) (no date) (unknown) (unknown) Provider: Sebas Mar D.O. (units unknown) (unknown) (unknown) (no date) (unknown) (unknown) Proxy is Almaz Brock. (units unknown) (unknown) (unknown) (no date) (unknown) (unknown) Psych: Patient has a well-kept appearance, appropriate affect, mental status (units unknown) (unknown) (unknown) (no date) (unknown) (unknown) Pulse Oximetry 96 98 (units unknown) (unknown) (unknown) (no date) (unknown) (unknown) Pulse Rate 88 88 (units unknown) (unknown) (unknown) (no date) (unknown) (unknown) Quality (units unknown) (unknown) (unknown) (no date) (unknown) (unknown) RBC 4.38 L (units unknown) (unknown) (unknown) (no date) (unknown) (unknown) RBC (units unknown) (unknown) (unknown) (no date) (unknown) (unknown) RDW 15.3 H (units unknown) (unknown) (unknown) (no date) (unknown) (unknown) RDW (units unknown) (unknown) (unknown) (no date) (unknown) (unknown) Respiratory Rate 22 28 H (units unknown) (unknown) (unknown) (no date) (unknown) (unknown) Signed By:<Electronically signed by Sebas Mar D.O.> (units unknown) (unknown) (unknown) (no date) (unknown) (unknown) Skin: Warm dry and intact without rashes, ulcerations or petechiae. (units unknown) (unknown) (unknown) (no date) (unknown) (unknown) Smoking Status: Never smoker (units unknown) (unknown) (unknown) (no date) (unknown) (unknown) Social History (units unknown) (unknown) (unknown) (no date) (unknown) (unknown) Sodium 133 L (units unknown) (unknown) (unknown) (no date) (unknown) (unknown) Sodium (units unknown) (unknown) (unknown) (no date) (unknown) (unknown) Subjective (units unknown) (unknown) (unknown) (no date) (unknown) (unknown) Surgical History (units unknown) (unknown) (unknown) (no date) (unknown) (unknown) Temperature 97.1 F L 97.4 F L (units unknown) (unknown) (unknown) (no date) (unknown) (unknown) Total Bilirubin 1.2 (units unknown) (unknown) (unknown) (no date) (unknown) (unknown) Total Bilirubin (units unknown) (unknown) (unknown) (no date) (unknown) (unknown) Total Protein 6.4 (units unknown) (unknown) (unknown) (no date) (unknown) (unknown) Total Protein (units unknown) (unknown) (unknown) (no date) (unknown) (unknown) VTE (units unknown) (unknown) (unknown) (no date) (unknown) (unknown) Vital Signs (units unknown) (unknown) (unknown) (no date) (unknown) (unknown) WBC 6.8 (units unknown) (unknown) (unknown) (no date) (unknown) (unknown) WBC (units unknown) (unknown) (unknown) (no date) (unknown) (unknown) [Embedded Image Not Available] (units unknown) (unknown) (unknown) (no date) (unknown) (unknown) aVL, similar in comparison to EKG from 12/18/2022, (units unknown) (unknown) (unknown) (no date) (unknown) (unknown) alcohol intake: never (units unknown) (unknown) (unknown) (no date) (unknown) (unknown) amputation. ? Patient presents with 5 days of fevers generally feeling unwell (units unknown) (unknown) (unknown) (no date) (unknown) (unknown) are present in all 4 quadrants without guarding or rebound, no CVA tenderness. (units unknown) (unknown) (unknown) (no date) (unknown) (unknown) attitude thought context and judgment are appropriate for age. (units unknown) (unknown) (unknown) (no date) (unknown) (unknown) bruit, no cardiac pulsations present. (units unknown) (unknown) (unknown) (no date) (unknown) (unknown) clear and mucous membranes are moist. Neck is supple and symmetric, trachea is (units unknown) (unknown) (unknown) (no date) (unknown) (unknown) dietary, lifestyle, exercise, and weight changes. (units unknown) (unknown) (unknown) (no date) (unknown) (unknown) he states his heart rate has been fast, fever x 5 days, patient is a poor (units unknown) (unknown) (unknown) (no date) (unknown) (unknown) his LLE still feels swollen but is less hot today. (units unknown) (unknown) (unknown) (no date) (unknown) (unknown) historian but verbalizes that he may have had increased swelling redness and (units unknown) (unknown) (unknown) (no date) (unknown) (unknown) household members: spouse (units unknown) (unknown) (unknown) (no date) (unknown) (unknown) hyponatremia (units unknown) (unknown) (unknown) (no date) (unknown) (unknown) intact, no gross deficits noted of cranial nerves. (units unknown) (unknown) (unknown) (no date) (unknown) (unknown) midline, no adenopathy, no thyroid enlargement, nontender, no masses palpated. (units unknown) (unknown) (unknown) (no date) (unknown) (unknown) more days then home. (units unknown) (unknown) (unknown) (no date) (unknown) (unknown) neuropathy, HTN, HLD, history of osteomyelitis, MSSA, resulting in right 3rd toe (units unknown) (unknown) (unknown) (no date) (unknown) (unknown) occupational status: employed (units unknown) (unknown) (unknown) (no date) (unknown) (unknown) on admission- sepsis resolved (units unknown) (unknown) (unknown) (no date) (unknown) (unknown) on admission-resolved (units unknown) (unknown) (unknown) (no date) (unknown) (unknown) pain of the left lower extremity for the past week, nausea and vomiting on way (units unknown) (unknown) (unknown) (no date) (unknown) (unknown) patient's obesity increases the difficulty and complexity of medical and/or (units unknown) (unknown) (unknown) (no date) (unknown) (unknown) peripheral neuropathy, chronic, present on admission-uncontrol led (units unknown) (unknown) (unknown) (no date) (unknown) (unknown) placed patient on Zosyn with Benadryl to be given prior to dosage patient has (units unknown) (unknown) (unknown) (no date) (unknown) (unknown) resolved (units unknown) (unknown) (unknown) (no date) (unknown) (unknown) retractions, or tachypneic labored breathing (units unknown) (unknown) (unknown) (no date) (unknown) (unknown) maldonado erythematous and warm to touch, radial and pedal pulses are normal. (units unknown) (unknown) (unknown) (no date) (unknown) (unknown) such as morbidity and mortality as well as impaired wound healing. (units unknown) (unknown) (unknown) (no date) (unknown) (unknown) surgical interventions, management and increases the chances of poor outcome (units unknown) (unknown) (unknown) (no date) (unknown) (unknown) time. (units unknown) (unknown) (unknown) (no date) (unknown) (unknown) to obesity as it relates to chronic illnesses:, and acute illness. The (units unknown) (unknown) (unknown) (no date) (unknown) (unknown) to the hospital. Patient admitted to the ICU teleICU for atrial fibrillation (units unknown) (unknown) (unknown) (no date) (unknown) (unknown) tolerated well and not had any reaction. (units unknown) (unknown) (unknown) (no date) (unknown) (unknown) wheezes, rhonchi, or rales. (units unknown) (unknown) (unknown) (no date) (unknown) (unknown) with RVR, sepsis without shock secondary to left lower extremity cellulitis, (units unknown) (unknown) Result panel 465 (unknown) (no date) (unknown) (unknown) 12.2 % 4548-4 (unknown) (no date) (unknown) (unknown) 12.2 % (unknown) Result panel 466 (unknown) (no date) (unknown) (unknown) 0 /ul (unknown) (unknown) (no date) (unknown) (unknown) 0.6 % (unknown) (unknown) (no date) (unknown) (unknown) 1000 /ul (unknown) (unknown) (no date) (unknown) (unknown) 12.5 % (unknown) (unknown) (no date) (unknown) (unknown) 12.9 g/dl (unknown) (unknown) (no date) (unknown) (unknown) 144 x10 3/ul (unknown) (unknown) (no date) (unknown) (unknown) 15.0 % (unknown) (unknown) (no date) (unknown) (unknown) 18.2 % (unknown) (unknown) (no date) (unknown) (unknown) 200 /ul (unknown) (unknown) (no date) (unknown) (unknown) 29.3 pg (unknown) (unknown) (no date) (unknown) (unknown) 33.7 % (unknown) (unknown) (no date) (unknown) (unknown) 3400 /ul (unknown) (unknown) (no date) (unknown) (unknown) 38.3 % (unknown) (unknown) (no date) (unknown) (unknown) 4.4 % (unknown) (unknown) (no date) (unknown) (unknown) 4.41 x10 6/ul (unknown) (unknown) (no date) (unknown) (unknown) 5.3 x10 3/ul (unknown) (unknown) (no date) (unknown) (unknown) 64.3 % (unknown) (unknown) (no date) (unknown) (unknown) 700 /ul (unknown) (unknown) (no date) (unknown) (unknown) 86.9 fl (unknown) Result panel 467 (unknown) (no date) (unknown) (unknown) 1.7 mg/dl (unknown) Result panel 468 (unknown) (no date) (unknown) (unknown) > 60 ml/min (unknown) (unknown) (no date) (unknown) (unknown) > 60 ml/min (unknown) (unknown) (no date) (unknown) (unknown) 0.8 mg/dl (unknown) (unknown) (no date) (unknown) (unknown) 0.90 mg/dl (unknown) (unknown) (no date) (unknown) (unknown) 1.0 (units unknown) (unknown) (unknown) (no date) (unknown) (unknown) 102 mmol/l (unknown) (unknown) (no date) (unknown) (unknown) 102 u/l (unknown) (unknown) (no date) (unknown) (unknown) 112 mg/dl (unknown) (unknown) (no date) (unknown) (unknown) 112 mg/dl (unknown) (unknown) (no date) (unknown) (unknown) 134 mmol/l (unknown) (unknown) (no date) (unknown) (unknown) 19 mg/dl (unknown) (unknown) (no date) (unknown) (unknown) 21.1 (units unknown) (unknown) (unknown) (no date) (unknown) (unknown) 26 mmol/l (unknown) (unknown) (no date) (unknown) (unknown) 3.2 g/dl (unknown) (unknown) (no date) (unknown) (unknown) 3.2 g/dl (unknown) (unknown) (no date) (unknown) (unknown) 3.7 mmol/l (unknown) (unknown) (no date) (unknown) (unknown) 6.4 g/dl (unknown) (unknown) (no date) (unknown) (unknown) 60 iu/l (unknown) (unknown) (no date) (unknown) (unknown) 69 iu/l (unknown) (unknown) (no date) (unknown) (unknown) 8.3 mg/dl (unknown) Result panel 469 (unknown) (no date) (unknown) (unknown) No growth. (units unknown) (unknown) Result panel 470 (unknown) (no date) (unknown) (unknown) (no value) (units unknown) (unknown) (unknown) (no date) (unknown) (unknown) (past 8 hours): (units unknown) (unknown) (unknown) (no date) (unknown) (unknown) 01:06 01/18/23 (units unknown) (unknown) (unknown) (no date) (unknown) (unknown) 01:30 01/18/23 (units unknown) (unknown) (unknown) (no date) (unknown) (unknown) [id number] (units unknown) (unknown) (unknown) (no date) (unknown) (unknown) 02:00 (units unknown) (unknown) (unknown) (no date) (unknown) (unknown) 02:30 01/18/23 (units unknown) (unknown) (unknown) (no date) (unknown) (unknown) 01/15/23 17:20 (units unknown) (unknown) (unknown) (no date) (unknown) (unknown) 01/15/23 20:16 (units unknown) (unknown) (unknown) (no date) (unknown) (unknown) 01/15/23 20:18 (units unknown) (unknown) (unknown) (no date) (unknown) (unknown) 01/18/23 01/18/23 01/18/23 (units unknown) (unknown) (unknown) (no date) (unknown) (unknown) 01/18/23 04:24 (units unknown) (unknown) (unknown) (no date) (unknown) (unknown) 01/18/23 (units unknown) (unknown) (unknown) (no date) (unknown) (unknown) 03:00 01/18/23 (units unknown) (unknown) (unknown) (no date) (unknown) (unknown) 03:30 (units unknown) (unknown) (unknown) (no date) (unknown) (unknown) 04:00 01/18/23 (units unknown) (unknown) (unknown) (no date) (unknown) (unknown) 04:04 01/18/23 (units unknown) (unknown) (unknown) (no date) (unknown) (unknown) 04:04 (units unknown) (unknown) (unknown) (no date) (unknown) (unknown) 04:24 04:24 04:24 (units unknown) (unknown) (unknown) (no date) (unknown) (unknown) 04:30 01/18/23 (units unknown) (unknown) (unknown) (no date) (unknown) (unknown) 05:00 01/18/23 (units unknown) (unknown) (unknown) (no date) (unknown) (unknown) 05:30 (units unknown) (unknown) (unknown) (no date) (unknown) (unknown) 06:00 01/18/23 (units unknown) (unknown) (unknown) (no date) (unknown) (unknown) 06:30 01/18/23 (units unknown) (unknown) (unknown) (no date) (unknown) (unknown) 07:00 (units unknown) (unknown) (unknown) (no date) (unknown) (unknown) 07:30 (units unknown) (unknown) (unknown) (no date) (unknown) (unknown) 12 unit SUBCUT BEDTIME (units unknown) (unknown) (unknown) (no date) (unknown) (unknown) 2.5. VBG: PH 7.44, pCO2 30.5, PO2 34, bicarb 21, TCO2 21, O2 sat 69%, BE (units unknown) (unknown) (unknown) (no date) (unknown) (unknown) 20 mg PO QPM (units unknown) (unknown) (unknown) (no date) (unknown) (unknown) 252, Mag 1.2, PT 19.2, INR 1.7, lipase 367, BNP 2810, sofa score:2, anion gap (units unknown) (unknown) (unknown) (no date) (unknown) (unknown) 5 days, patient is a poor historian but verbalizes that he may have had (units unknown) (unknown) (unknown) (no date) (unknown) (unknown) 5 mg PO DAILY 90 Days Qty: 90 0RF (units unknown) (unknown) (unknown) (no date) (unknown) (unknown) 50 mg PO BID 90 Days Qty: 180 0RF (units unknown) (unknown) (unknown) (no date) (unknown) (unknown) 50 mg PO BID Qty: 60 0RF (units unknown) (unknown) (unknown) (no date) (unknown) (unknown) 500 mg PO BID 6 Days Qty: 12 0RF (units unknown) (unknown) (unknown) (no date) (unknown) (unknown) 500 mg PO BID (units unknown) (unknown) (unknown) (no date) (unknown) (unknown) ALT 60 H (units unknown) (unknown) (unknown) (no date) (unknown) (unknown) AST 69 H (units unknown) (unknown) (unknown) (no date) (unknown) (unknown) Afib (units unknown) (unknown) (unknown) (no date) (unknown) (unknown) Age/Sex: 67 / M (units unknown) (unknown) (unknown) (no date) (unknown) (unknown) Albumin 3.2 L (units unknown) (unknown) (unknown) (no date) (unknown) (unknown) Albumin/Globulin Ratio 1.0 (units unknown) (unknown) (unknown) (no date) (unknown) (unknown) Alkaline Phosphatase 102 (units unknown) (unknown) (unknown) (no date) (unknown) (unknown) At the time of admit continued to have a low-grade fever 100.9, developed (units unknown) (unknown) (unknown) (no date) (unknown) (unknown) BUN 19 (units unknown) (unknown) (unknown) (no date) (unknown) (unknown) BUN/Creatinine Ratio 21.1 (units unknown) (unknown) (unknown) (no date) (unknown) (unknown) Baso # (Auto) 0 (units unknown) (unknown) (unknown) (no date) (unknown) (unknown) Baso % (Auto) 0.6 (units unknown) (unknown) (unknown) (no date) (unknown) (unknown) Blood Pressure 139/73 139/73 (units unknown) (unknown) (unknown) (no date) (unknown) (unknown) Blood Pressure (units unknown) (unknown) (unknown) (no date) (unknown) (unknown) Calcium 8.3 L (units unknown) (unknown) (unknown) (no date) (unknown) (unknown) Carbon Dioxide 26 (units unknown) (unknown) (unknown) (no date) (unknown) (unknown) Chief complaint: vomiting/shaking/fe trell (units unknown) (unknown) (unknown) (no date) (unknown) (unknown) Chloride 102 (units unknown) (unknown) (unknown) (no date) (unknown) (unknown) Emma Angel MD [Primary Care Provider] - 2 Weeks (units unknown) (unknown) (unknown) (no date) (unknown) (unknown) Comment: (units unknown) (unknown) (unknown) (no date) (unknown) (unknown) Consult to Dietitian, Adult Urgent (units unknown) (unknown) (unknown) (no date) (unknown) (unknown) Consult to Tele-head nurse Routine (units unknown) (unknown) (unknown) (no date) (unknown) (unknown) Consulting Provider: [employer] (units unknown) (unknown) (unknown) (no date) (unknown) (unknown) Consults: (units unknown) (unknown) (unknown) (no date) (unknown) (unknown) Continued (units unknown) (unknown) (unknown) (no date) (unknown) (unknown) Creatinine 0.90 (units unknown) (unknown) (unknown) (no date) (unknown) (unknown) : 1955 Acct:[id number] (units unknown) (unknown) (unknown) (no date) (unknown) (unknown) Date Patient Seen: 01/18/23 (units unknown) (unknown) (unknown) (no date) (unknown) (unknown) Date of Service: 01/15/23 (units unknown) (unknown) (unknown) (no date) (unknown) (unknown) Date of admission: (units unknown) (unknown) (unknown) (no date) (unknown) (unknown) Deep Vein Thrombosis/Pulmonar y Embolism Present on Admission: No (units unknown) (unknown) (unknown) (no date) (unknown) (unknown) Diabetes mellitus (units unknown) (unknown) (unknown) (no date) (unknown) (unknown) Diabetes (units unknown) (unknown) (unknown) (no date) (unknown) (unknown) Discharge Data (units unknown) (unknown) (unknown) (no date) (unknown) (unknown) Discharge Date: 01/18/23 (units unknown) (unknown) (unknown) (no date) (unknown) (unknown) Discharge Plan (units unknown) (unknown) (unknown) (no date) (unknown) (unknown) Discharge Providers (units unknown) (unknown) (unknown) (no date) (unknown) (unknown) Discharge Summary (units unknown) (unknown) (unknown) (no date) (unknown) (unknown) Discharge orders + Medications (units unknown) (unknown) (unknown) (no date) (unknown) (unknown) Discharge provider: (units unknown) (unknown) (unknown) (no date) (unknown) (unknown) Discontinued (units unknown) (unknown) (unknown) (no date) (unknown) (unknown) Eos # (Auto) 200 (units unknown) (unknown) (unknown) (no date) (unknown) (unknown) Eos % (Auto) 4.4 H (units unknown) (unknown) (unknown) (no date) (unknown) (unknown) Estimated GFR > 60 (units unknown) (unknown) (unknown) (no date) (unknown) (unknown) Exam (units unknown) (unknown) (unknown) (no date) (unknown) (unknown) Family History (units unknown) (unknown) (unknown) (no date) (unknown) (unknown) Father Smoker (units unknown) (unknown) (unknown) (no date) (unknown) (unknown) Follow up/Referrals: (units unknown) (unknown) (unknown) (no date) (unknown) (unknown) Globulin 3.2 (units unknown) (unknown) (unknown) (no date) (unknown) (unknown) Glucose 112 H (units unknown) (unknown) (unknown) (no date) (unknown) (unknown) Has provider been notified: No (units unknown) (unknown) (unknown) (no date) (unknown) (unknown) Hct 38.3 L (units unknown) (unknown) (unknown) (no date) (unknown) (unknown) Heart attack (units unknown) (unknown) (unknown) (no date) (unknown) (unknown) Hgb 12.9 L (units unknown) (unknown) (unknown) (no date) (unknown) (unknown) History of Present Illness (units unknown) (unknown) (unknown) (no date) (unknown) (unknown) History of hernia repair (units unknown) (unknown) (unknown) (no date) (unknown) (unknown) History of neck surgery (units unknown) (unknown) (unknown) (no date) (unknown) (unknown) Hyperlipidemia (units unknown) (unknown) (unknown) (no date) (unknown) (unknown) Hypertension (units unknown) (unknown) (unknown) (no date) (unknown) (unknown) [address] [address] (units unknown) (unknown) (unknown) (no date) (unknown) (unknown) Emma Angel MD (units unknown) (unknown) (unknown) (no date) (unknown) (unknown) Arvind Brock is a 67yo M with PMH of A-fib on xeralto, DM2 with peripheral (units unknown) (unknown) (unknown) (no date) (unknown) (unknown) Laboratory Results - last 24 hr (units unknown) (unknown) (unknown) (no date) (unknown) (unknown) Labs (units unknown) (unknown) (unknown) (no date) (unknown) (unknown) Labs: (units unknown) (unknown) (unknown) (no date) (unknown) (unknown) Lymph # (Auto) 1000 L (units unknown) (unknown) (unknown) (no date) (unknown) (unknown) Lymph % (Auto) 18.2 L (units unknown) (unknown) (unknown) (no date) (unknown) (unknown) MCH 29.3 (units unknown) (unknown) (unknown) (no date) (unknown) (unknown) MCHC 33.7 (units unknown) (unknown) (unknown) (no date) (unknown) (unknown) MCV 86.9 (units unknown) (unknown) (unknown) (no date) (unknown) (unknown) Magnesium 1.7 (units unknown) (unknown) (unknown) (no date) (unknown) (unknown) Sebas Mar, DO (units unknown) (unknown) (unknown) (no date) (unknown) (unknown) Medical History (Updated 01/16/23 @ 06:48 by Judy Alvarado) (units unknown) (unknown) (unknown) (no date) (unknown) (unknown) [place] # (Auto) 700 (units unknown) (unknown) (unknown) (no date) (unknown) (unknown) [place] % (Auto) 12.5 (units unknown) (unknown) (unknown) (no date) (unknown) (unknown) Mother No significant medical problems (units unknown) (unknown) (unknown) (no date) (unknown) (unknown) Narrative: (units unknown) (unknown) (unknown) (no date) (unknown) (unknown) Neuropathy of both feet (units unknown) (unknown) (unknown) (no date) (unknown) (unknown) Neut # (Auto) 3400 (units unknown) (unknown) (unknown) (no date) (unknown) (unknown) Neut % (Auto) 64.3 (units unknown) (unknown) (unknown) (no date) (unknown) (unknown) New (units unknown) (unknown) (unknown) (no date) (unknown) (unknown) Objective (units unknown) (unknown) (unknown) (no date) (unknown) (unknown) On admit patient denies chest pain, shortness in breath, headache, changes in (units unknown) (unknown) (unknown) (no date) (unknown) (unknown) Oxygen Delivery Method Room Air (units unknown) (unknown) (unknown) (no date) (unknown) (unknown) Oxygen Flow Rate 0 (units unknown) (unknown) (unknown) (no date) (unknown) (unknown) PFSH (units unknown) (unknown) (unknown) (no date) (unknown) (unknown) Patient Disposition: Home (units unknown) (unknown) (unknown) (no date) (unknown) (unknown) Patient was given an initial dose of diltiazem and then placed on a Dilt drip. (units unknown) (unknown) (unknown) (no date) (unknown) (unknown) Patient: Arvind Brock MR#: [id number] (units unknown) (unknown) (unknown) (no date) (unknown) (unknown) Plt Count 144 L (units unknown) (unknown) (unknown) (no date) (unknown) (unknown) Potassium 3.7 (units unknown) (unknown) (unknown) (no date) (unknown) (unknown) Prescriptions: (units unknown) (unknown) (unknown) (no date) (unknown) (unknown) Primary Care Provider: Emma Angel (units unknown) (unknown) (unknown) (no date) (unknown) (unknown) Primary care physician: (units unknown) (unknown) (unknown) (no date) (unknown) (unknown) Provider Discharge Comment: You were admitted for cellulitis of your right leg (units unknown) (unknown) (unknown) (no date) (unknown) (unknown) Provider (units unknown) (unknown) (unknown) (no date) (unknown) (unknown) Provider: Sebas Mar D.O. (units unknown) (unknown) (unknown) (no date) (unknown) (unknown) Pulse Oximetry 96 98 (units unknown) (unknown) (unknown) (no date) (unknown) (unknown) Pulse Oximetry (units unknown) (unknown) (unknown) (no date) (unknown) (unknown) Pulse Rate 103 H 95 H 81 (units unknown) (unknown) (unknown) (no date) (unknown) (unknown) Pulse Rate 106 H 103 H 87 (units unknown) (unknown) (unknown) (no date) (unknown) (unknown) Pulse Rate 79 (units unknown) (unknown) (unknown) (no date) (unknown) (unknown) Pulse Rate 81 85 103 H (units unknown) (unknown) (unknown) (no date) (unknown) (unknown) Pulse Rate 85 79 86 (units unknown) (unknown) (unknown) (no date) (unknown) (unknown) Pulse Rate 92 H 78 (units unknown) (unknown) (unknown) (no date) (unknown) (unknown) Quality (units unknown) (unknown) (unknown) (no date) (unknown) (unknown) RBC 4.41 L (units unknown) (unknown) (unknown) (no date) (unknown) (unknown) RDW 15.0 H (units unknown) (unknown) (unknown) (no date) (unknown) (unknown) Reason For Exam: BMI 30.8 (units unknown) (unknown) (unknown) (no date) (unknown) (unknown) 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 (units unknown) (unknown) (unknown) (no date) (unknown) (unknown) Respiratory Rate 25 H (units unknown) (unknown) (unknown) (no date) (unknown) (unknown) Respiratory Rate 28 H 29 H (units unknown) (unknown) (unknown) (no date) (unknown) (unknown) Respiratory Rate 29 H 20 28 H (units unknown) (unknown) (unknown) (no date) (unknown) (unknown) Respiratory Rate 29 H 29 H 28 H (units unknown) (unknown) (unknown) (no date) (unknown) (unknown) Respiratory Rate 31 H 28 H 31 H (units unknown) (unknown) (unknown) (no date) (unknown) (unknown) Respiratory Rate 32 H 29 H 25 H (units unknown) (unknown) (unknown) (no date) (unknown) (unknown) Signed By: (units unknown) (unknown) (unknown) (no date) (unknown) (unknown) Smoking Status: Never smoker (units unknown) (unknown) (unknown) (no date) (unknown) (unknown) Social History (units unknown) (unknown) (unknown) (no date) (unknown) (unknown) Sodium 134 L (units unknown) (unknown) (unknown) (no date) (unknown) (unknown) Stand Alone Forms: Patient Portal/API, Stroke Signs + Symptoms (units unknown) (unknown) (unknown) (no date) (unknown) (unknown) Surgical History (units unknown) (unknown) (unknown) (no date) (unknown) (unknown) Temperature 97.3 F L (units unknown) (unknown) (unknown) (no date) (unknown) (unknown) Temperature (units unknown) (unknown) (unknown) (no date) (unknown) (unknown) Time Patient Seen: 08:32 (units unknown) (unknown) (unknown) (no date) (unknown) (unknown) Total Bilirubin 0.8 (units unknown) (unknown) (unknown) (no date) (unknown) (unknown) Total Protein 6.4 (units unknown) (unknown) (unknown) (no date) (unknown) (unknown) VTE (units unknown) (unknown) (unknown) (no date) (unknown) (unknown) Visit Report/Discharge Packet (units unknown) (unknown) (unknown) (no date) (unknown) (unknown) Vital Signs (units unknown) (unknown) (unknown) (no date) (unknown) (unknown) WBC 5.3 (units unknown) (unknown) (unknown) (no date) (unknown) (unknown) Xarelto 20 mg Tablet (units unknown) (unknown) (unknown) (no date) (unknown) (unknown) [Embedded Image Not Available] (units unknown) (unknown) (unknown) (no date) (unknown) (unknown) admitted to the ICU teleICU for atrial fibrillation with RVR, sepsis without (units unknown) (unknown) (unknown) (no date) (unknown) (unknown) afebrile temp 101?, hypertensive urgency BP 193/91, 183/84, tachycardic heart (units unknown) (unknown) (unknown) (no date) (unknown) (unknown) air-patient is stable in no distress sleeping heavily. Currently diltiazem drip (units unknown) (unknown) (unknown) (no date) (unknown) (unknown) alcohol intake: never (units unknown) (unknown) (unknown) (no date) (unknown) (unknown) amputation. In ED was primary historian she is unsure if he is taking his (units unknown) (unknown) (unknown) (no date) (unknown) (unknown) antibiotics at home. Your A-fib was also going at a fast rate which we slowed (units unknown) (unknown) (unknown) (no date) (unknown) (unknown) body aches, chills, cough, denies recent exposure to illness, abdominal pain, (units unknown) (unknown) (unknown) (no date) (unknown) (unknown) cefadroxil 500 mg capsule (units unknown) (unknown) (unknown) (no date) (unknown) (unknown) changes, constipation, incontinence, melena, rashes, recent changes to (units unknown) (unknown) (unknown) (no date) (unknown) (unknown) comparison to EKG from 12/18/2022, last echo 11/2022 EF 35-40%. Patient (units unknown) (unknown) (unknown) (no date) (unknown) (unknown) daily short acting metoprolol. This should work better for you. (units unknown) (unknown) (unknown) (no date) (unknown) (unknown) difficulty with ambulation, recent falls, head injury, LOC, currently no fever, (units unknown) (unknown) (unknown) (no date) (unknown) (unknown) extremely resistant to coming into the emergency department, is frequently (units unknown) (unknown) (unknown) (no date) (unknown) (unknown) fevers generally feeling unwell he states his heart rate has been fast, fever x (units unknown) (unknown) (unknown) (no date) (unknown) (unknown) household members: spouse (units unknown) (unknown) (unknown) (no date) (unknown) (unknown) hypotension 102/59, 98/54, map 75, HR 86 Afib, RR 20, O2 saturation 94% on room (units unknown) (unknown) (unknown) (no date) (unknown) (unknown) increased swelling redness and pain of the left lower extremity for the past (units unknown) (unknown) (unknown) (no date) (unknown) (unknown) initial lactate 3.2, repeat 1. Sodium 128, Cl 96, BUN 24, bicarb 19, glucose (units unknown) (unknown) (unknown) (no date) (unknown) (unknown) insulin glargine [Lantus U-100 Insulin] 100 unit/mL Solution (units unknown) (unknown) (unknown) (no date) (unknown) (unknown) lisinopril 5 mg tablet (units unknown) (unknown) (unknown) (no date) (unknown) (unknown) long acting version and it wasn't working as well. So you are now on a twice (units unknown) (unknown) (unknown) (no date) (unknown) (unknown) medication, illness, injury, or trauma. (units unknown) (unknown) (unknown) (no date) (unknown) (unknown) medications regularly.? He was admitted for AFib RVR in November and was not (units unknown) (unknown) (unknown) (no date) (unknown) (unknown) metformin 500 mg Tablet (units unknown) (unknown) (unknown) (no date) (unknown) (unknown) metoprolol succinate 50 mg tablet extended release 24 hr (units unknown) (unknown) (unknown) (no date) (unknown) (unknown) metoprolol tartrate 50 mg Tablet (units unknown) (unknown) (unknown) (no date) (unknown) (unknown) negative for, FiO2 21. WBC 15.9, newt 13,000, mono 1500 procalcitonin 0.5, (units unknown) (unknown) (unknown) (no date) (unknown) (unknown) negative, COVID influenza a/B/RSV are all negative. 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 Patient (units unknown) (unknown) (unknown) (no date) (unknown) (unknown) occupational status: employed (units unknown) (unknown) (unknown) (no date) (unknown) (unknown) rate of 169, negative acute ST changes, depression in lead 1 and aVL, similar in (units unknown) (unknown) (unknown) (no date) (unknown) (unknown) rates up to 209, tachypneic respiratory rates 30-50 in atrial fibrillation. (units unknown) (unknown) (unknown) (no date) (unknown) (unknown) shock secondary to left lower extremity cellulitis, hyponatremia (units unknown) (unknown) (unknown) (no date) (unknown) (unknown) states his primary care is through the [facility].? In the ED patient was (units unknown) (unknown) (unknown) (no date) (unknown) (unknown) taking medications regularly at that time.? Patient presents with 5 days of (units unknown) (unknown) (unknown) (no date) (unknown) (unknown) urinary incontinence/retent ion, dysuria, frequency, urgency, hematuria, bowel (units unknown) (unknown) (unknown) (no date) (unknown) (unknown) vascular congestion. I personally reviewed all imaging and EKG. EKG: AFib RVR (units unknown) (unknown) (unknown) (no date) (unknown) (unknown) vision, difficulty swallowing, speech impairment, weakness, numbness, tingling, (units unknown) (unknown) (unknown) (no date) (unknown) (unknown) week, nausea and vomiting on way to the hospital. Patient was sent to be (units unknown) (unknown) (unknown) (no date) (unknown) (unknown) which improved with antibiotics. You will now need to finish 6 more days of oral (units unknown) (unknown) (unknown) (no date) (unknown) (unknown) with metoprolol. I'm switching up your metoprolol a bit, as you were taking the (units unknown) (unknown) Result panel 471 (unknown) (no date) (unknown) (unknown) (no value) (units unknown) (unknown) (unknown) (no date) (unknown) (unknown) NO GROWTH AFTER 72 HOURS (units unknown) (unknown) Result panel 472 (unknown) (no date) (unknown) (unknown) (no value) (units unknown) (unknown) (unknown) (no date) (unknown) (unknown) (past 8 hours): (units unknown) (unknown) (unknown) (no date) (unknown) (unknown) Discharges patient from system. (units unknown) (unknown) (unknown) (no date) (unknown) (unknown) 01:06 01/18/23 (units unknown) (unknown) (unknown) (no date) (unknown) (unknown) 01:30 01/18/23 (units unknown) (unknown) (unknown) (no date) (unknown) (unknown) [id number] (units unknown) (unknown) (unknown) (no date) (unknown) (unknown) 02:00 (units unknown) (unknown) (unknown) (no date) (unknown) (unknown) 02:30 01/18/23 (units unknown) (unknown) (unknown) (no date) (unknown) (unknown) 01/15/23 17:20 (units unknown) (unknown) (unknown) (no date) (unknown) (unknown) 01/15/23 20:16 (units unknown) (unknown) (unknown) (no date) (unknown) (unknown) 01/15/23 20:18 (units unknown) (unknown) (unknown) (no date) (unknown) (unknown) 01/18/23 01/18/23 01/18/23 (units unknown) (unknown) (unknown) (no date) (unknown) (unknown) 01/18/23 04:24 (units unknown) (unknown) (unknown) (no date) (unknown) (unknown) 01/18/23 (units unknown) (unknown) (unknown) (no date) (unknown) (unknown) 03:00 01/18/23 (units unknown) (unknown) (unknown) (no date) (unknown) (unknown) 03:30 (units unknown) (unknown) (unknown) (no date) (unknown) (unknown) 04:00 01/18/23 (units unknown) (unknown) (unknown) (no date) (unknown) (unknown) 04:04 01/18/23 (units unknown) (unknown) (unknown) (no date) (unknown) (unknown) 04:04 (units unknown) (unknown) (unknown) (no date) (unknown) (unknown) 04:24 04:24 04:24 (units unknown) (unknown) (unknown) (no date) (unknown) (unknown) 04:30 01/18/23 (units unknown) (unknown) (unknown) (no date) (unknown) (unknown) 05:00 01/18/23 (units unknown) (unknown) (unknown) (no date) (unknown) (unknown) 05:30 (units unknown) (unknown) (unknown) (no date) (unknown) (unknown) 06:00 01/18/23 (units unknown) (unknown) (unknown) (no date) (unknown) (unknown) 06:30 01/18/23 (units unknown) (unknown) (unknown) (no date) (unknown) (unknown) 07:00 (units unknown) (unknown) (unknown) (no date) (unknown) (unknown) 07:30 (units unknown) (unknown) (unknown) (no date) (unknown) (unknown) 12 unit SUBCUT BEDTIME (units unknown) (unknown) (unknown) (no date) (unknown) (unknown) 2.5. VBG: PH 7.44, pCO2 30.5, PO2 34, bicarb 21, TCO2 21, O2 sat 69%, BE (units unknown) (unknown) (unknown) (no date) (unknown) (unknown) 20 mg PO QPM (units unknown) (unknown) (unknown) (no date) (unknown) (unknown) 252, Mag 1.2, PT 19.2, INR 1.7, lipase 367, BNP 2810, sofa score:2, anion gap (units unknown) (unknown) (unknown) (no date) (unknown) (unknown) 5 days, patient is a poor historian but verbalizes that he may have had (units unknown) (unknown) (unknown) (no date) (unknown) (unknown) 5 mg PO DAILY 90 Days Qty: 90 0RF (units unknown) (unknown) (unknown) (no date) (unknown) (unknown) 50 mg PO BID 90 Days Qty: 180 0RF (units unknown) (unknown) (unknown) (no date) (unknown) (unknown) 50 mg PO BID Qty: 60 0RF (units unknown) (unknown) (unknown) (no date) (unknown) (unknown) 500 mg PO BID 6 Days Qty: 12 0RF (units unknown) (unknown) (unknown) (no date) (unknown) (unknown) 500 mg PO BID (units unknown) (unknown) (unknown) (no date) (unknown) (unknown) ALT 60 H (units unknown) (unknown) (unknown) (no date) (unknown) (unknown) AST 69 H (units unknown) (unknown) (unknown) (no date) (unknown) (unknown) Abdomen: Soft nontender, negative for organomegaly, or masses. Bowel sounds (units unknown) (unknown) (unknown) (no date) (unknown) (unknown) Afib (units unknown) (unknown) (unknown) (no date) (unknown) (unknown) Age/Sex: 67 / M (units unknown) (unknown) (unknown) (no date) (unknown) (unknown) Albumin 3.2 L (units unknown) (unknown) (unknown) (no date) (unknown) (unknown) Albumin/Globulin Ratio 1.0 (units unknown) (unknown) (unknown) (no date) (unknown) (unknown) Alkaline Phosphatase 102 (units unknown) (unknown) (unknown) (no date) (unknown) (unknown) At the time of admit continued to have a low-grade fever 100.9, developed (units unknown) (unknown) (unknown) (no date) (unknown) (unknown) BUN 19 (units unknown) (unknown) (unknown) (no date) (unknown) (unknown) BUN/Creatinine Ratio 21.1 (units unknown) (unknown) (unknown) (no date) (unknown) (unknown) Baso # (Auto) 0 (units unknown) (unknown) (unknown) (no date) (unknown) (unknown) Baso % (Auto) 0.6 (units unknown) (unknown) (unknown) (no date) (unknown) (unknown) Blood Pressure 139/73 139/73 (units unknown) (unknown) (unknown) (no date) (unknown) (unknown) Blood Pressure (units unknown) (unknown) (unknown) (no date) (unknown) (unknown) Calcium 8.3 L (units unknown) (unknown) (unknown) (no date) (unknown) (unknown) Carbon Dioxide 26 (units unknown) (unknown) (unknown) (no date) (unknown) (unknown) Cardio: regular rate and rhythm without murmur, rubs, or gallops, no carotid (units unknown) (unknown) (unknown) (no date) (unknown) (unknown) Chest: Normal AP diameter and contour without kyphoscoliosis, no nasal flaring, (units unknown) (unknown) (unknown) (no date) (unknown) (unknown) Chief complaint: vomiting/shaking/fe trell (units unknown) (unknown) (unknown) (no date) (unknown) (unknown) Chloride 102 (units unknown) (unknown) (unknown) (no date) (unknown) (unknown) Emma Angel MD [Primary Care Provider] - 2 Weeks (units unknown) (unknown) (unknown) (no date) (unknown) (unknown) Comment: (units unknown) (unknown) (unknown) (no date) (unknown) (unknown) Consult to Dietitian, Adult Urgent (units unknown) (unknown) (unknown) (no date) (unknown) (unknown) Consult to Tele-head nurse Routine (units unknown) (unknown) (unknown) (no date) (unknown) (unknown) Consulting Provider: [employer] (units unknown) (unknown) (unknown) (no date) (unknown) (unknown) Consults: (units unknown) (unknown) (unknown) (no date) (unknown) (unknown) Continued (units unknown) (unknown) (unknown) (no date) (unknown) (unknown) Creatinine 0.90 (units unknown) (unknown) (unknown) (no date) (unknown) (unknown) : 1955 Acct:[id number] (units unknown) (unknown) (unknown) (no date) (unknown) (unknown) Date Patient Seen: 01/18/23 (units unknown) (unknown) (unknown) (no date) (unknown) (unknown) Date of Service: 01/15/23 (units unknown) (unknown) (unknown) (no date) (unknown) (unknown) Date of admission: (units unknown) (unknown) (unknown) (no date) (unknown) (unknown) Deep Vein Thrombosis/Pulmonar y Embolism Present on Admission: No (units unknown) (unknown) (unknown) (no date) (unknown) (unknown) Diabetes mellitus (units unknown) (unknown) (unknown) (no date) (unknown) (unknown) Diabetes (units unknown) (unknown) (unknown) (no date) (unknown) (unknown) Discharge Data (units unknown) (unknown) (unknown) (no date) (unknown) (unknown) Discharge Date/Time: 01/18/23 16:31 (units unknown) (unknown) (unknown) (no date) (unknown) (unknown) Discharge Date: 01/18/23 (units unknown) (unknown) (unknown) (no date) (unknown) (unknown) Discharge Plan (units unknown) (unknown) (unknown) (no date) (unknown) (unknown) Discharge Providers (units unknown) (unknown) (unknown) (no date) (unknown) (unknown) Discharge Summary (units unknown) (unknown) (unknown) (no date) (unknown) (unknown) Discharge orders + Medications (units unknown) (unknown) (unknown) (no date) (unknown) (unknown) Discharge provider: (units unknown) (unknown) (unknown) (no date) (unknown) (unknown) Discontinued (units unknown) (unknown) (unknown) (no date) (unknown) (unknown) Eos # (Auto) 200 (units unknown) (unknown) (unknown) (no date) (unknown) (unknown) Eos % (Auto) 4.4 H (units unknown) (unknown) (unknown) (no date) (unknown) (unknown) Estimated GFR > 60 (units unknown) (unknown) (unknown) (no date) (unknown) (unknown) Exam Narrative: (units unknown) (unknown) (unknown) (no date) (unknown) (unknown) Exam (units unknown) (unknown) (unknown) (no date) (unknown) (unknown) Family History (units unknown) (unknown) (unknown) (no date) (unknown) (unknown) Father Smoker (units unknown) (unknown) (unknown) (no date) (unknown) (unknown) Follow up/Referrals: (units unknown) (unknown) (unknown) (no date) (unknown) (unknown) General: Patient is a well-developed, well-nourished in no distress at this (units unknown) (unknown) (unknown) (no date) (unknown) (unknown) Globulin 3.2 (units unknown) (unknown) (unknown) (no date) (unknown) (unknown) Glucose 112 H (units unknown) (unknown) (unknown) (no date) (unknown) (unknown) HEENT: Normocephalic, atraumatic, extraocular muscles intact, oral pharynx is (units unknown) (unknown) (unknown) (no date) (unknown) (unknown) Has provider been notified: No (units unknown) (unknown) (unknown) (no date) (unknown) (unknown) Hct 38.3 L (units unknown) (unknown) (unknown) (no date) (unknown) (unknown) Heart attack (units unknown) (unknown) (unknown) (no date) (unknown) (unknown) Hgb 12.9 L (units unknown) (unknown) (unknown) (no date) (unknown) (unknown) History of Present Illness (units unknown) (unknown) (unknown) (no date) (unknown) (unknown) History of hernia repair (units unknown) (unknown) (unknown) (no date) (unknown) (unknown) History of neck surgery (units unknown) (unknown) (unknown) (no date) (unknown) (unknown) Hyperlipidemia (units unknown) (unknown) (unknown) (no date) (unknown) (unknown) Hypertension (units unknown) (unknown) (unknown) (no date) (unknown) (unknown) [address] [id number] (units unknown) (unknown) (unknown) (no date) (unknown) (unknown) Emma Angel MD (units unknown) (unknown) (unknown) (no date) (unknown) (unknown) Arvind Brock is a 67yo M with PMH of A-fib on [facility], [facility] with peripheral (units unknown) (unknown) (unknown) (no date) (unknown) (unknown) Laboratory Results - last 24 hr (units unknown) (unknown) (unknown) (no date) (unknown) (unknown) Labs (units unknown) (unknown) (unknown) (no date) (unknown) (unknown) Labs: (units unknown) (unknown) (unknown) (no date) (unknown) (unknown) Lungs: Auscultation of all lung neff are clear without adventitious sounds, (units unknown) (unknown) (unknown) (no date) (unknown) (unknown) Lymph # (Auto) 1000 L (units unknown) (unknown) (unknown) (no date) (unknown) (unknown) Lymph % (Auto) 18.2 L (units unknown) (unknown) (unknown) (no date) (unknown) (unknown) MCH 29.3 (units unknown) (unknown) (unknown) (no date) (unknown) (unknown) MCHC 33.7 (units unknown) (unknown) (unknown) (no date) (unknown) (unknown) MCV 86.9 (units unknown) (unknown) (unknown) (no date) (unknown) (unknown) Magnesium 1.7 (units unknown) (unknown) (unknown) (no date) (unknown) (unknown) Sebas Mar, DO (units unknown) (unknown) (unknown) (no date) (unknown) (unknown) Medical History (Updated 01/16/23 @ 06:48 by Judy Alvarado) (units unknown) (unknown) (unknown) (no date) (unknown) (unknown) Medication counseling provided by Pharmacist: Yes (units unknown) (unknown) (unknown) (no date) (unknown) (unknown) [place] # (Auto) 700 (units unknown) (unknown) (unknown) (no date) (unknown) (unknown) [place] % (Auto) 12.5 (units unknown) (unknown) (unknown) (no date) (unknown) (unknown) Mother No significant medical problems (units unknown) (unknown) (unknown) (no date) (unknown) (unknown) Musculoskeletal: Bilateral lower extremity edema, left greater than right, left (units unknown) (unknown) (unknown) (no date) (unknown) (unknown) Narrative (units unknown) (unknown) (unknown) (no date) (unknown) (unknown) Narrative: (units unknown) (unknown) (unknown) (no date) (unknown) (unknown) Negative for JVD (units unknown) (unknown) (unknown) (no date) (unknown) (unknown) Neuro: Alert and orientated x3, moves all extremities, sensation to touch (units unknown) (unknown) (unknown) (no date) (unknown) (unknown) Neuropathy of both feet (units unknown) (unknown) (unknown) (no date) (unknown) (unknown) Neut # (Auto) 3400 (units unknown) (unknown) (unknown) (no date) (unknown) (unknown) Neut % (Auto) 64.3 (units unknown) (unknown) (unknown) (no date) (unknown) (unknown) New (units unknown) (unknown) (unknown) (no date) (unknown) (unknown) Objective (units unknown) (unknown) (unknown) (no date) (unknown) (unknown) On admit patient denies chest pain, shortness in breath, headache, changes in (units unknown) (unknown) (unknown) (no date) (unknown) (unknown) Oxygen Delivery Method Room Air (units unknown) (unknown) (unknown) (no date) (unknown) (unknown) Oxygen Flow Rate 0 (units unknown) (unknown) (unknown) (no date) (unknown) (unknown) PFSH (units unknown) (unknown) (unknown) (no date) (unknown) (unknown) Patient Disposition: Home (units unknown) (unknown) (unknown) (no date) (unknown) (unknown) Patient was given an initial dose of diltiazem and then placed on a Dilt drip. (units unknown) (unknown) (unknown) (no date) (unknown) (unknown) Patient: Arvind Brock MR#: [id number] (units unknown) (unknown) (unknown) (no date) (unknown) (unknown) Plt Count 144 L (units unknown) (unknown) (unknown) (no date) (unknown) (unknown) Potassium 3.7 (units unknown) (unknown) (unknown) (no date) (unknown) (unknown) Prescriptions: (units unknown) (unknown) (unknown) (no date) (unknown) (unknown) Primary Care Provider: Emma Angel (units unknown) (unknown) (unknown) (no date) (unknown) (unknown) Primary care physician: (units unknown) (unknown) (unknown) (no date) (unknown) (unknown) Provider Discharge Comment: You were admitted for cellulitis of your right leg (units unknown) (unknown) (unknown) (no date) (unknown) (unknown) Provider (units unknown) (unknown) (unknown) (no date) (unknown) (unknown) Provider: Sebas Mar D.O. (units unknown) (unknown) (unknown) (no date) (unknown) (unknown) Psych: Patient has a well-kept appearance, appropriate affect, mental status (units unknown) (unknown) (unknown) (no date) (unknown) (unknown) Pulse Oximetry 96 98 (units unknown) (unknown) (unknown) (no date) (unknown) (unknown) Pulse Oximetry (units unknown) (unknown) (unknown) (no date) (unknown) (unknown) Pulse Rate 103 H 95 H 81 (units unknown) (unknown) (unknown) (no date) (unknown) (unknown) Pulse Rate 106 H 103 H 87 (units unknown) (unknown) (unknown) (no date) (unknown) (unknown) Pulse Rate 79 (units unknown) (unknown) (unknown) (no date) (unknown) (unknown) Pulse Rate 81 85 103 H (units unknown) (unknown) (unknown) (no date) (unknown) (unknown) Pulse Rate 85 79 86 (units unknown) (unknown) (unknown) (no date) (unknown) (unknown) Pulse Rate 92 H 78 (units unknown) (unknown) (unknown) (no date) (unknown) (unknown) Quality (units unknown) (unknown) (unknown) (no date) (unknown) (unknown) RBC 4.41 L (units unknown) (unknown) (unknown) (no date) (unknown) (unknown) RDW 15.0 H (units unknown) (unknown) (unknown) (no date) (unknown) (unknown) Reason For Exam: BMI 30.8 (units unknown) (unknown) (unknown) (no date) (unknown) (unknown) 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 (units unknown) (unknown) (unknown) (no date) (unknown) (unknown) Respiratory Rate 25 H (units unknown) (unknown) (unknown) (no date) (unknown) (unknown) Respiratory Rate 28 H 29 H (units unknown) (unknown) (unknown) (no date) (unknown) (unknown) Respiratory Rate 29 H 20 28 H (units unknown) (unknown) (unknown) (no date) (unknown) (unknown) Respiratory Rate 29 H 29 H 28 H (units unknown) (unknown) (unknown) (no date) (unknown) (unknown) Respiratory Rate 31 H 28 H 31 H (units unknown) (unknown) (unknown) (no date) (unknown) (unknown) Respiratory Rate 32 H 29 H 25 H (units unknown) (unknown) (unknown) (no date) (unknown) (unknown) Signed By: (units unknown) (unknown) (unknown) (no date) (unknown) (unknown) Skin: Warm dry and intact without rashes, ulcerations or petechiae. (units unknown) (unknown) (unknown) (no date) (unknown) (unknown) Smoking Status: Never smoker (units unknown) (unknown) (unknown) (no date) (unknown) (unknown) Social History (units unknown) (unknown) (unknown) (no date) (unknown) (unknown) Sodium 134 L (units unknown) (unknown) (unknown) (no date) (unknown) (unknown) Stand Alone Forms: Patient Portal/API, Stroke Signs + Symptoms (units unknown) (unknown) (unknown) (no date) (unknown) (unknown) Summary (units unknown) (unknown) (unknown) (no date) (unknown) (unknown) Surgical History (units unknown) (unknown) (unknown) (no date) (unknown) (unknown) Temperature 97.3 F L (units unknown) (unknown) (unknown) (no date) (unknown) (unknown) Temperature (units unknown) (unknown) (unknown) (no date) (unknown) (unknown) Time Patient Seen: 08:32 (units unknown) (unknown) (unknown) (no date) (unknown) (unknown) Time Spent with Patient (units unknown) (unknown) (unknown) (no date) (unknown) (unknown) Time spent: Greater than 30 minutes (units unknown) (unknown) (unknown) (no date) (unknown) (unknown) Total Bilirubin 0.8 (units unknown) (unknown) (unknown) (no date) (unknown) (unknown) Total Protein 6.4 (units unknown) (unknown) (unknown) (no date) (unknown) (unknown) VTE (units unknown) (unknown) (unknown) (no date) (unknown) (unknown) Visit Report/Discharge Packet (units unknown) (unknown) (unknown) (no date) (unknown) (unknown) Vital Signs (units unknown) (unknown) (unknown) (no date) (unknown) (unknown) WBC 5.3 (units unknown) (unknown) (unknown) (no date) (unknown) (unknown) Xarelto 20 mg Tablet (units unknown) (unknown) (unknown) (no date) (unknown) (unknown) [Embedded Image Not Available] (units unknown) (unknown) (unknown) (no date) (unknown) (unknown) admitted to the ICU teleICU for atrial fibrillation with RVR, sepsis without (units unknown) (unknown) (unknown) (no date) (unknown) (unknown) afebrile temp 101?, hypertensive urgency BP 193/91, 183/84, tachycardic heart (units unknown) (unknown) (unknown) (no date) (unknown) (unknown) air-patient is stable in no distress sleeping heavily. Currently diltiazem drip (units unknown) (unknown) (unknown) (no date) (unknown) (unknown) alcohol intake: never (units unknown) (unknown) (unknown) (no date) (unknown) (unknown) amputation. In ED was primary historian she is unsure if he is taking his (units unknown) (unknown) (unknown) (no date) (unknown) (unknown) antibiotics at home. Your A-fib was also going at a fast rate which we slowed (units unknown) (unknown) (unknown) (no date) (unknown) (unknown) are present in all 4 quadrants without guarding or rebound, no CVA tenderness. (units unknown) (unknown) (unknown) (no date) (unknown) (unknown) attitude thought context and judgment are appropriate for age. (units unknown) (unknown) (unknown) (no date) (unknown) (unknown) body aches, chills, cough, denies recent exposure to illness, abdominal pain, (units unknown) (unknown) (unknown) (no date) (unknown) (unknown) bruit, no cardiac pulsations present. (units unknown) (unknown) (unknown) (no date) (unknown) (unknown) cefadroxil 500 mg capsule (units unknown) (unknown) (unknown) (no date) (unknown) (unknown) changes, constipation, incontinence, melena, rashes, recent changes to (units unknown) (unknown) (unknown) (no date) (unknown) (unknown) clear and mucous membranes are moist. Neck is supple and symmetric, trachea is (units unknown) (unknown) (unknown) (no date) (unknown) (unknown) comparison to EKG from 12/18/2022, last echo 11/2022 EF 35-40%. Patient (units unknown) (unknown) (unknown) (no date) (unknown) (unknown) daily short acting metoprolol. This should work better for you. (units unknown) (unknown) (unknown) (no date) (unknown) (unknown) difficulty with ambulation, recent falls, head injury, LOC, currently no fever, (units unknown) (unknown) (unknown) (no date) (unknown) (unknown) extremely resistant to coming into the emergency department, is frequently (units unknown) (unknown) (unknown) (no date) (unknown) (unknown) fevers generally feeling unwell he states his heart rate has been fast, fever x (units unknown) (unknown) (unknown) (no date) (unknown) (unknown) household members: spouse (units unknown) (unknown) (unknown) (no date) (unknown) (unknown) hypotension 102/59, 98/54, map 75, HR 86 Afib, RR 20, O2 saturation 94% on room (units unknown) (unknown) (unknown) (no date) (unknown) (unknown) increased swelling redness and pain of the left lower extremity for the past (units unknown) (unknown) (unknown) (no date) (unknown) (unknown) initial lactate 3.2, repeat 1. Sodium 128, Cl 96, BUN 24, bicarb 19, glucose (units unknown) (unknown) (unknown) (no date) (unknown) (unknown) insulin glargine [Lantus U-100 Insulin] 100 unit/mL Solution (units unknown) (unknown) (unknown) (no date) (unknown) (unknown) intact, no gross deficits noted of cranial nerves. (units unknown) (unknown) (unknown) (no date) (unknown) (unknown) lisinopril 5 mg tablet (units unknown) (unknown) (unknown) (no date) (unknown) (unknown) long acting version and it wasn't working as well. So you are now on a twice (units unknown) (unknown) (unknown) (no date) (unknown) (unknown) medication, illness, injury, or trauma. (units unknown) (unknown) (unknown) (no date) (unknown) (unknown) medications regularly.? He was admitted for AFib RVR in November and was not (units unknown) (unknown) (unknown) (no date) (unknown) (unknown) metformin 500 mg Tablet (units unknown) (unknown) (unknown) (no date) (unknown) (unknown) metoprolol succinate 50 mg tablet extended release 24 hr (units unknown) (unknown) (unknown) (no date) (unknown) (unknown) metoprolol tartrate 50 mg Tablet (units unknown) (unknown) (unknown) (no date) (unknown) (unknown) midline, no adenopathy, no thyroid enlargement, nontender, no masses palpated. (units unknown) (unknown) (unknown) (no date) (unknown) (unknown) negative for, FiO2 21. WBC 15.9, newt 13,000, mono 1500 procalcitonin 0.5, (units unknown) (unknown) (unknown) (no date) (unknown) (unknown) negative, COVID influenza a/B/RSV are all negative. 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 Patient (units unknown) (unknown) (unknown) (no date) (unknown) (unknown) occupational status: employed (units unknown) (unknown) (unknown) (no date) (unknown) (unknown) rate of 169, negative acute ST changes, depression in lead 1 and aVL, similar in (units unknown) (unknown) (unknown) (no date) (unknown) (unknown) rates up to 209, tachypneic respiratory rates 30-50 in atrial fibrillation. (units unknown) (unknown) (unknown) (no date) (unknown) (unknown) retractions, or tachypneic labored breathing (units unknown) (unknown) (unknown) (no date) (unknown) (unknown) maldonado erythematous and warm to touch, radial and pedal pulses are normal. (units unknown) (unknown) (unknown) (no date) (unknown) (unknown) shock secondary to left lower extremity cellulitis, hyponatremia (units unknown) (unknown) (unknown) (no date) (unknown) (unknown) states his primary care is through the [facility].? In the ED patient was (units unknown) (unknown) (unknown) (no date) (unknown) (unknown) taking medications regularly at that time.? Patient presents with 5 days of (units unknown) (unknown) (unknown) (no date) (unknown) (unknown) time. (units unknown) (unknown) (unknown) (no date) (unknown) (unknown) urinary incontinence/retent ion, dysuria, frequency, urgency, hematuria, bowel (units unknown) (unknown) (unknown) (no date) (unknown) (unknown) vascular congestion. I personally reviewed all imaging and EKG. EKG: AFib RVR (units unknown) (unknown) (unknown) (no date) (unknown) (unknown) vision, difficulty swallowing, speech impairment, weakness, numbness, tingling, (units unknown) (unknown) (unknown) (no date) (unknown) (unknown) week, nausea and vomiting on way to the hospital. Patient was sent to be (units unknown) (unknown) (unknown) (no date) (unknown) (unknown) wheezes, rhonchi, or rales. (units unknown) (unknown) (unknown) (no date) (unknown) (unknown) which improved with antibiotics. You will now need to finish 6 more days of oral (units unknown) (unknown) (unknown) (no date) (unknown) (unknown) with metoprolol. I'm switching up your metoprolol a bit, as you were taking the (units unknown) (unknown) Result panel 473 (unknown) (no date) (unknown) (unknown) (no value) (units unknown) (unknown) (unknown) (no date) (unknown) (unknown) (past 8 hours): (units unknown) (unknown) (unknown) (no date) (unknown) (unknown) Discharges patient from system. (units unknown) (unknown) (unknown) (no date) (unknown) (unknown) -BMI 30.8 (units unknown) (unknown) (unknown) (no date) (unknown) (unknown) -ED : BP 193/91, 183/84, (units unknown) (unknown) (unknown) (no date) (unknown) (unknown) -EKG:? AFib RVR rate of 169, negative acute ST changes, depression in lead 1 and (units unknown) (unknown) (unknown) (no date) (unknown) (unknown) -HR increasing to 130's at rest (units unknown) (unknown) (unknown) (no date) (unknown) (unknown) -In ED Hr up to 209 (units unknown) (unknown) (unknown) (no date) (unknown) (unknown) -LLE cellulitis improved and no longer painful or hot, but some swelling and (units unknown) (unknown) (unknown) (no date) (unknown) (unknown) -Mag 1.2 ordered 2 g rider and now 1.9 (units unknown) (unknown) (unknown) (no date) (unknown) (unknown) -SOFA:2, febrile, tachycardic, tachypneic (units unknown) (unknown) (unknown) (no date) (unknown) (unknown) -WBC 15.9 and temop of 100.9F on admission, WBCnow normal and afebrile (units unknown) (unknown) (unknown) (no date) (unknown) (unknown) -admit hypotension 102/59, 98/54, map 75 (units unknown) (unknown) (unknown) (no date) (unknown) (unknown) -blood sugar checks a.c. HS, with sliding-scale coverage, continue Lantus (units unknown) (unknown) (unknown) (no date) (unknown) (unknown) -check A1c >14 in Nov 2022 (units unknown) (unknown) (unknown) (no date) (unknown) (unknown) -continue Xarelto (units unknown) (unknown) (unknown) (no date) (unknown) (unknown) -diabetes education met with patient (units unknown) (unknown) (unknown) (no date) (unknown) (unknown) -dietary consult ordered regarding nutritional education and information for (units unknown) (unknown) (unknown) (no date) (unknown) (unknown) -discharge on po metop tart to replace metop succ (units unknown) (unknown) (unknown) (no date) (unknown) (unknown) -discharged on cefadroxil x6 more days to complete 10 days of treatment (units unknown) (unknown) (unknown) (no date) (unknown) (unknown) -holding patient's lisinopril due to sepsis (units unknown) (unknown) (unknown) (no date) (unknown) (unknown) -initially on levophed drip which was weaned off (units unknown) (unknown) (unknown) (no date) (unknown) (unknown) -last echo 11/2022 EF 35-40% (units unknown) (unknown) (unknown) (no date) (unknown) (unknown) -left lower extremity ultrasound negative for DVT (units unknown) (unknown) (unknown) (no date) (unknown) (unknown) -no chest pain or EKG changes (units unknown) (unknown) (unknown) (no date) (unknown) (unknown) -now downtrending (units unknown) (unknown) (unknown) (no date) (unknown) (unknown) -patient admitted to the ICU/tele head nurse (units unknown) (unknown) (unknown) (no date) (unknown) (unknown) -patient admitted under diabetic protocol (units unknown) (unknown) (unknown) (no date) (unknown) (unknown) -patient had a history of urticaria with a previous dosage of Zosyn in 2019, (units unknown) (unknown) (unknown) (no date) (unknown) (unknown) -patient has been noncompliant with Cardiology follow-up and medications (units unknown) (unknown) (unknown) (no date) (unknown) (unknown) -patient has diabetes with a history of osteomyelitis, 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 (units unknown) (unknown) (unknown) (no date) (unknown) (unknown) -restarted on discharge (units unknown) (unknown) (unknown) (no date) (unknown) (unknown) -the patient is at much higher risk for medical and surgical complications due (units unknown) (unknown) (unknown) (no date) (unknown) (unknown) -transitioned from metop tart 25mg q6h to metop tart 50mg BID with good effect (units unknown) (unknown) (unknown) (no date) (unknown) (unknown) -trop up to 0.251, likely demand ischemia from sepsis and A-fib RVR (units unknown) (unknown) (unknown) (no date) (unknown) (unknown) -zosyn removed from allergy list as he tolerated it well (units unknown) (unknown) (unknown) (no date) (unknown) (unknown) 01:06 01/18/23 (units unknown) (unknown) (unknown) (no date) (unknown) (unknown) 01:30 01/18/23 (units unknown) (unknown) (unknown) (no date) (unknown) (unknown) [id number] (units unknown) (unknown) (unknown) (no date) (unknown) (unknown) 02:00 (units unknown) (unknown) (unknown) (no date) (unknown) (unknown) 02:30 01/18/23 (units unknown) (unknown) (unknown) (no date) (unknown) (unknown) 01/15/23 17:20 (units unknown) (unknown) (unknown) (no date) (unknown) (unknown) 01/15/23 20:16 (units unknown) (unknown) (unknown) (no date) (unknown) (unknown) 01/15/23 20:18 (units unknown) (unknown) (unknown) (no date) (unknown) (unknown) 01/18/23 01/18/23 01/18/23 (units unknown) (unknown) (unknown) (no date) (unknown) (unknown) 01/18/23 04:24 (units unknown) (unknown) (unknown) (no date) (unknown) (unknown) 01/18/23 (units unknown) (unknown) (unknown) (no date) (unknown) (unknown) 01/19/23 0944 (units unknown) (unknown) (unknown) (no date) (unknown) (unknown) 03:00 01/18/23 (units unknown) (unknown) (unknown) (no date) (unknown) (unknown) 03:30 (units unknown) (unknown) (unknown) (no date) (unknown) (unknown) 04:00 01/18/23 (units unknown) (unknown) (unknown) (no date) (unknown) (unknown) 04:04 01/18/23 (units unknown) (unknown) (unknown) (no date) (unknown) (unknown) 04:04 (units unknown) (unknown) (unknown) (no date) (unknown) (unknown) 04:24 04:24 04:24 (units unknown) (unknown) (unknown) (no date) (unknown) (unknown) 04:30 01/18/23 (units unknown) (unknown) (unknown) (no date) (unknown) (unknown) 05:00 01/18/23 (units unknown) (unknown) (unknown) (no date) (unknown) (unknown) 05:30 (units unknown) (unknown) (unknown) (no date) (unknown) (unknown) 06:00 01/18/23 (units unknown) (unknown) (unknown) (no date) (unknown) (unknown) 06:30 01/18/23 (units unknown) (unknown) (unknown) (no date) (unknown) (unknown) 07:00 (units unknown) (unknown) (unknown) (no date) (unknown) (unknown) 07:30 (units unknown) (unknown) (unknown) (no date) (unknown) (unknown) 1. Atrial fibrillation with RVR, acute on chronic, present on admission, RVR (units unknown) (unknown) (unknown) (no date) (unknown) (unknown) 12 unit SUBCUT BEDTIME (units unknown) (unknown) (unknown) (no date) (unknown) (unknown) 2. Sepsis without septic shock, secondary to left leg cellulitis, acute, present (units unknown) (unknown) (unknown) (no date) (unknown) (unknown) 2.5. VBG: PH 7.44, pCO2 30.5, PO2 34, bicarb 21, TCO2 21, O2 sat 69%, BE (units unknown) (unknown) (unknown) (no date) (unknown) (unknown) 20 mg PO QPM (units unknown) (unknown) (unknown) (no date) (unknown) (unknown) 252, Mag 1.2, PT 19.2, INR 1.7, lipase 367, BNP 2810, sofa score:2, anion gap (units unknown) (unknown) (unknown) (no date) (unknown) (unknown) 3. Essential hypertension, with hypertensive urgency, acute on chronic, present (units unknown) (unknown) (unknown) (no date) (unknown) (unknown) 3rd toe amputation in 2019 (units unknown) (unknown) (unknown) (no date) (unknown) (unknown) 4. Type 2 diabetes insulin-dependent, with hyperglycemia, acute on chronic, with (units unknown) (unknown) (unknown) (no date) (unknown) (unknown) 5 days, patient is a poor historian but verbalizes that he may have had (units unknown) (unknown) (unknown) (no date) (unknown) (unknown) 5 mg PO DAILY 90 Days Qty: 90 0RF (units unknown) (unknown) (unknown) (no date) (unknown) (unknown) 5.? Overweight, mild, acute on chronic, present on admission (units unknown) (unknown) (unknown) (no date) (unknown) (unknown) 50 mg PO BID 90 Days Qty: 180 0RF (units unknown) (unknown) (unknown) (no date) (unknown) (unknown) 50 mg PO BID Qty: 60 0RF (units unknown) (unknown) (unknown) (no date) (unknown) (unknown) 500 mg PO BID 6 Days Qty: 12 0RF (units unknown) (unknown) (unknown) (no date) (unknown) (unknown) 500 mg PO BID (units unknown) (unknown) (unknown) (no date) (unknown) (unknown) 6. Elevated troponin (units unknown) (unknown) (unknown) (no date) (unknown) (unknown) ALT 60 H (units unknown) (unknown) (unknown) (no date) (unknown) (unknown) AST 69 H (units unknown) (unknown) (unknown) (no date) (unknown) (unknown) Abdomen: Soft nontender, negative for organomegaly, or masses. Bowel sounds (units unknown) (unknown) (unknown) (no date) (unknown) (unknown) Afib (units unknown) (unknown) (unknown) (no date) (unknown) (unknown) Age/Sex: 67 / M (units unknown) (unknown) (unknown) (no date) (unknown) (unknown) Albumin 3.2 L (units unknown) (unknown) (unknown) (no date) (unknown) (unknown) Albumin/Globulin Ratio 1.0 (units unknown) (unknown) (unknown) (no date) (unknown) (unknown) Alkaline Phosphatase 102 (units unknown) (unknown) (unknown) (no date) (unknown) (unknown) At the time of admit continued to have a low-grade fever 100.9, developed (units unknown) (unknown) (unknown) (no date) (unknown) (unknown) BUN 19 (units unknown) (unknown) (unknown) (no date) (unknown) (unknown) BUN/Creatinine Ratio 21.1 (units unknown) (unknown) (unknown) (no date) (unknown) (unknown) Baso # (Auto) 0 (units unknown) (unknown) (unknown) (no date) (unknown) (unknown) Baso % (Auto) 0.6 (units unknown) (unknown) (unknown) (no date) (unknown) (unknown) Blood Pressure 139/73 139/73 (units unknown) (unknown) (unknown) (no date) (unknown) (unknown) Blood Pressure (units unknown) (unknown) (unknown) (no date) (unknown) (unknown) COVID negative. (units unknown) (unknown) (unknown) (no date) (unknown) (unknown) Calcium 8.3 L (units unknown) (unknown) (unknown) (no date) (unknown) (unknown) Carbon Dioxide 26 (units unknown) (unknown) (unknown) (no date) (unknown) (unknown) Cardio: regular rate and rhythm without murmur, rubs, or gallops, no carotid (units unknown) (unknown) (unknown) (no date) (unknown) (unknown) Chest: Normal AP diameter and contour without kyphoscoliosis, no nasal flaring, (units unknown) (unknown) (unknown) (no date) (unknown) (unknown) Chief complaint: vomiting/shaking/fe trell (units unknown) (unknown) (unknown) (no date) (unknown) (unknown) Chloride 102 (units unknown) (unknown) (unknown) (no date) (unknown) (unknown) Emma Angel MD [Primary Care Provider] - 2 Weeks (units unknown) (unknown) (unknown) (no date) (unknown) (unknown) Code status is full code. (units unknown) (unknown) (unknown) (no date) (unknown) (unknown) Comment: (units unknown) (unknown) (unknown) (no date) (unknown) (unknown) Consult to Dietitian, Adult Urgent (units unknown) (unknown) (unknown) (no date) (unknown) (unknown) Consult to Tele-head nurse Routine (units unknown) (unknown) (unknown) (no date) (unknown) (unknown) Consulting Provider: [employer] (units unknown) (unknown) (unknown) (no date) (unknown) (unknown) Consults: (units unknown) (unknown) (unknown) (no date) (unknown) (unknown) Continued (units unknown) (unknown) (unknown) (no date) (unknown) (unknown) Creatinine 0.90 (units unknown) (unknown) (unknown) (no date) (unknown) (unknown) : 1955 Acct:[id number] (units unknown) (unknown) (unknown) (no date) (unknown) (unknown) DVT prophylaxis with Xarelto. (units unknown) (unknown) (unknown) (no date) (unknown) (unknown) Date Patient Seen: 01/18/23 (units unknown) (unknown) (unknown) (no date) (unknown) (unknown) Date of Service: 01/15/23 (units unknown) (unknown) (unknown) (no date) (unknown) (unknown) Date of admission: (units unknown) (unknown) (unknown) (no date) (unknown) (unknown) Deep Vein Thrombosis/Pulmonar y Embolism Present on Admission: No (units unknown) (unknown) (unknown) (no date) (unknown) (unknown) Diabetes mellitus (units unknown) (unknown) (unknown) (no date) (unknown) (unknown) Diabetes (units unknown) (unknown) (unknown) (no date) (unknown) (unknown) Discharge Data (units unknown) (unknown) (unknown) (no date) (unknown) (unknown) Discharge Date/Time: 01/18/23 16:31 (units unknown) (unknown) (unknown) (no date) (unknown) (unknown) Discharge Date: 01/18/23 (units unknown) (unknown) (unknown) (no date) (unknown) (unknown) Discharge Diagnosis: (units unknown) (unknown) (unknown) (no date) (unknown) (unknown) Discharge Plan (units unknown) (unknown) (unknown) (no date) (unknown) (unknown) Discharge Providers (units unknown) (unknown) (unknown) (no date) (unknown) (unknown) Discharge Summary (units unknown) (unknown) (unknown) (no date) (unknown) (unknown) Discharge orders + Medications (units unknown) (unknown) (unknown) (no date) (unknown) (unknown) Discharge provider: (units unknown) (unknown) (unknown) (no date) (unknown) (unknown) Discontinued (units unknown) (unknown) (unknown) (no date) (unknown) (unknown) Eos # (Auto) 200 (units unknown) (unknown) (unknown) (no date) (unknown) (unknown) Eos % (Auto) 4.4 H (units unknown) (unknown) (unknown) (no date) (unknown) (unknown) Estimated GFR > 60 (units unknown) (unknown) (unknown) (no date) (unknown) (unknown) Exam Narrative: (units unknown) (unknown) (unknown) (no date) (unknown) (unknown) Exam (units unknown) (unknown) (unknown) (no date) (unknown) (unknown) Family History (units unknown) (unknown) (unknown) (no date) (unknown) (unknown) Father Smoker (units unknown) (unknown) (unknown) (no date) (unknown) (unknown) Follow up/Referrals: (units unknown) (unknown) (unknown) (no date) (unknown) (unknown) General: Patient is a well-developed, well-nourished in no distress at this (units unknown) (unknown) (unknown) (no date) (unknown) (unknown) Globulin 3.2 (units unknown) (unknown) (unknown) (no date) (unknown) (unknown) Glucose 112 H (units unknown) (unknown) (unknown) (no date) (unknown) (unknown) HEENT: Normocephalic, atraumatic, extraocular muscles intact, oral pharynx is (units unknown) (unknown) (unknown) (no date) (unknown) (unknown) Has provider been notified: No (units unknown) (unknown) (unknown) (no date) (unknown) (unknown) Hct 38.3 L (units unknown) (unknown) (unknown) (no date) (unknown) (unknown) Heart attack (units unknown) (unknown) (unknown) (no date) (unknown) (unknown) Hgb 12.9 L (units unknown) (unknown) (unknown) (no date) (unknown) (unknown) History of Present Illness (units unknown) (unknown) (unknown) (no date) (unknown) (unknown) History of hernia repair (units unknown) (unknown) (unknown) (no date) (unknown) (unknown) History of neck surgery (units unknown) (unknown) (unknown) (no date) (unknown) (unknown) Hospital Course (units unknown) (unknown) (unknown) (no date) (unknown) (unknown) Hospital Course: (units unknown) (unknown) (unknown) (no date) (unknown) (unknown) Hyperlipidemia (units unknown) (unknown) (unknown) (no date) (unknown) (unknown) Hypertension (units unknown) (unknown) (unknown) (no date) (unknown) (unknown) [address] [address] (units unknown) (unknown) (unknown) (no date) (unknown) (unknown) Emma Angel MD (units unknown) (unknown) (unknown) (no date) (unknown) (unknown) Arvind Brock is a 67yo M with PMH of A-fib on [place] [id number] with peripheral (units unknown) (unknown) (unknown) (no date) (unknown) (unknown) Laboratory Results - last 24 hr (units unknown) (unknown) (unknown) (no date) (unknown) (unknown) Labs (units unknown) (unknown) (unknown) (no date) (unknown) (unknown) Labs: (units unknown) (unknown) (unknown) (no date) (unknown) (unknown) Lungs: Auscultation of all lung neff are clear without adventitious sounds, (units unknown) (unknown) (unknown) (no date) (unknown) (unknown) Lymph # (Auto) 1000 L (units unknown) (unknown) (unknown) (no date) (unknown) (unknown) Lymph % (Auto) 18.2 L (units unknown) (unknown) (unknown) (no date) (unknown) (unknown) MCH 29.3 (units unknown) (unknown) (unknown) (no date) (unknown) (unknown) MCHC 33.7 (units unknown) (unknown) (unknown) (no date) (unknown) (unknown) MCV 86.9 (units unknown) (unknown) (unknown) (no date) (unknown) (unknown) Magnesium 1.7 (units unknown) (unknown) (unknown) (no date) (unknown) (unknown) Sebas Mar DO (units unknown) (unknown) (unknown) (no date) (unknown) (unknown) Medical History (Updated 01/16/23 @ 06:48 by Judy Alvarado) (units unknown) (unknown) (unknown) (no date) (unknown) (unknown) Medication counseling provided by Pharmacist: Yes (units unknown) (unknown) (unknown) (no date) (unknown) (unknown) [place] # (Auto) 700 (units unknown) (unknown) (unknown) (no date) (unknown) (unknown) [place] % (Auto) 12.5 (units unknown) (unknown) (unknown) (no date) (unknown) (unknown) Mother No significant medical problems (units unknown) (unknown) (unknown) (no date) (unknown) (unknown) Musculoskeletal: Bilateral lower extremity edema, left greater than right, left (units unknown) (unknown) (unknown) (no date) (unknown) (unknown) Narrative (units unknown) (unknown) (unknown) (no date) (unknown) (unknown) Narrative: (units unknown) (unknown) (unknown) (no date) (unknown) (unknown) Negative for JVD (units unknown) (unknown) (unknown) (no date) (unknown) (unknown) Neuro: Alert and orientated x3, moves all extremities, sensation to touch (units unknown) (unknown) (unknown) (no date) (unknown) (unknown) Neuropathy of both feet (units unknown) (unknown) (unknown) (no date) (unknown) (unknown) Neut # (Auto) 3400 (units unknown) (unknown) (unknown) (no date) (unknown) (unknown) Neut % (Auto) 64.3 (units unknown) (unknown) (unknown) (no date) (unknown) (unknown) New (units unknown) (unknown) (unknown) (no date) (unknown) (unknown) Objective (units unknown) (unknown) (unknown) (no date) (unknown) (unknown) On admit patient denies chest pain, shortness in breath, headache, changes in (units unknown) (unknown) (unknown) (no date) (unknown) (unknown) Oxygen Delivery Method Room Air (units unknown) (unknown) (unknown) (no date) (unknown) (unknown) Oxygen Flow Rate 0 (units unknown) (unknown) (unknown) (no date) (unknown) (unknown) PFSH (units unknown) (unknown) (unknown) (no date) (unknown) (unknown) Patient Disposition: Home (units unknown) (unknown) (unknown) (no date) (unknown) (unknown) Patient was given an initial dose of diltiazem and then placed on a Dilt drip. (units unknown) (unknown) (unknown) (no date) (unknown) (unknown) Patient: Arvind Brock MR#: [id number] (units unknown) (unknown) (unknown) (no date) (unknown) (unknown) Plt Count 144 L (units unknown) (unknown) (unknown) (no date) (unknown) (unknown) Potassium 3.7 (units unknown) (unknown) (unknown) (no date) (unknown) (unknown) Prescriptions: (units unknown) (unknown) (unknown) (no date) (unknown) (unknown) Primary Care Provider: Emma Angel (units unknown) (unknown) (unknown) (no date) (unknown) (unknown) Primary care physician: (units unknown) (unknown) (unknown) (no date) (unknown) (unknown) Provider Discharge Comment: You were admitted for cellulitis of your right leg (units unknown) (unknown) (unknown) (no date) (unknown) (unknown) Provider (units unknown) (unknown) (unknown) (no date) (unknown) (unknown) Provider: Sebas Mar D.O. (units unknown) (unknown) (unknown) (no date) (unknown) (unknown) Proxy is Almaz Brock. (units unknown) (unknown) (unknown) (no date) (unknown) (unknown) Psych: Patient has a well-kept appearance, appropriate affect, mental status (units unknown) (unknown) (unknown) (no date) (unknown) (unknown) Pulse Oximetry 96 98 (units unknown) (unknown) (unknown) (no date) (unknown) (unknown) Pulse Oximetry (units unknown) (unknown) (unknown) (no date) (unknown) (unknown) Pulse Rate 103 H 95 H 81 (units unknown) (unknown) (unknown) (no date) (unknown) (unknown) Pulse Rate 106 H 103 H 87 (units unknown) (unknown) (unknown) (no date) (unknown) (unknown) Pulse Rate 79 (units unknown) (unknown) (unknown) (no date) (unknown) (unknown) Pulse Rate 81 85 103 H (units unknown) (unknown) (unknown) (no date) (unknown) (unknown) Pulse Rate 85 79 86 (units unknown) (unknown) (unknown) (no date) (unknown) (unknown) Pulse Rate 92 H 78 (units unknown) (unknown) (unknown) (no date) (unknown) (unknown) Quality (units unknown) (unknown) (unknown) (no date) (unknown) (unknown) RBC 4.41 L (units unknown) (unknown) (unknown) (no date) (unknown) (unknown) RDW 15.0 H (units unknown) (unknown) (unknown) (no date) (unknown) (unknown) Reason For Exam: BMI 30.8 (units unknown) (unknown) (unknown) (no date) (unknown) (unknown) 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 (units unknown) (unknown) (unknown) (no date) (unknown) (unknown) Respiratory Rate 25 H (units unknown) (unknown) (unknown) (no date) (unknown) (unknown) Respiratory Rate 28 H 29 H (units unknown) (unknown) (unknown) (no date) (unknown) (unknown) Respiratory Rate 29 H 20 28 H (units unknown) (unknown) (unknown) (no date) (unknown) (unknown) Respiratory Rate 29 H 29 H 28 H (units unknown) (unknown) (unknown) (no date) (unknown) (unknown) Respiratory Rate 31 H 28 H 31 H (units unknown) (unknown) (unknown) (no date) (unknown) (unknown) Respiratory Rate 32 H 29 H 25 H (units unknown) (unknown) (unknown) (no date) (unknown) (unknown) See above problem list. (units unknown) (unknown) (unknown) (no date) (unknown) (unknown) Signed By:<Electronically signed by Sebas Mar D.O.> (units unknown) (unknown) (unknown) (no date) (unknown) (unknown) Skin: Warm dry and intact without rashes, ulcerations or petechiae. (units unknown) (unknown) (unknown) (no date) (unknown) (unknown) Smoking Status: Never smoker (units unknown) (unknown) (unknown) (no date) (unknown) (unknown) Social History (units unknown) (unknown) (unknown) (no date) (unknown) (unknown) Sodium 134 L (units unknown) (unknown) (unknown) (no date) (unknown) (unknown) Stand Alone Forms: Patient Portal/API, Stroke Signs + Symptoms (units unknown) (unknown) (unknown) (no date) (unknown) (unknown) Summary (units unknown) (unknown) (unknown) (no date) (unknown) (unknown) Surgical History (units unknown) (unknown) (unknown) (no date) (unknown) (unknown) Temperature 97.3 F L (units unknown) (unknown) (unknown) (no date) (unknown) (unknown) Temperature (units unknown) (unknown) (unknown) (no date) (unknown) (unknown) Time Patient Seen: 08:32 (units unknown) (unknown) (unknown) (no date) (unknown) (unknown) Time Spent with Patient (units unknown) (unknown) (unknown) (no date) (unknown) (unknown) Time spent: Greater than 30 minutes (units unknown) (unknown) (unknown) (no date) (unknown) (unknown) Total Bilirubin 0.8 (units unknown) (unknown) (unknown) (no date) (unknown) (unknown) Total Protein 6.4 (units unknown) (unknown) (unknown) (no date) (unknown) (unknown) VTE (units unknown) (unknown) (unknown) (no date) (unknown) (unknown) Visit Report/Discharge Packet (units unknown) (unknown) (unknown) (no date) (unknown) (unknown) Vital Signs (units unknown) (unknown) (unknown) (no date) (unknown) (unknown) WBC 5.3 (units unknown) (unknown) (unknown) (no date) (unknown) (unknown) Xarelto 20 mg Tablet (units unknown) (unknown) (unknown) (no date) (unknown) (unknown) [Embedded Image Not Available] (units unknown) (unknown) (unknown) (no date) (unknown) (unknown) aVL, similar in comparison to EKG from 12/18/2022, (units unknown) (unknown) (unknown) (no date) (unknown) (unknown) admitted to the ICU teleICU for atrial fibrillation with RVR, sepsis without (units unknown) (unknown) (unknown) (no date) (unknown) (unknown) afebrile temp 101?, hypertensive urgency BP 193/91, 183/84, tachycardic heart (units unknown) (unknown) (unknown) (no date) (unknown) (unknown) air-patient is stable in no distress sleeping heavily. Currently diltiazem drip (units unknown) (unknown) (unknown) (no date) (unknown) (unknown) alcohol intake: never (units unknown) (unknown) (unknown) (no date) (unknown) (unknown) amputation. In ED was primary historian she is unsure if he is taking his (units unknown) (unknown) (unknown) (no date) (unknown) (unknown) antibiotics at home. Your A-fib was also going at a fast rate which we slowed (units unknown) (unknown) (unknown) (no date) (unknown) (unknown) are present in all 4 quadrants without guarding or rebound, no CVA tenderness. (units unknown) (unknown) (unknown) (no date) (unknown) (unknown) attitude thought context and judgment are appropriate for age. (units unknown) (unknown) (unknown) (no date) (unknown) (unknown) body aches, chills, cough, denies recent exposure to illness, abdominal pain, (units unknown) (unknown) (unknown) (no date) (unknown) (unknown) bruit, no cardiac pulsations present. (units unknown) (unknown) (unknown) (no date) (unknown) (unknown) cefadroxil 500 mg capsule (units unknown) (unknown) (unknown) (no date) (unknown) (unknown) changes, constipation, incontinence, melena, rashes, recent changes to (units unknown) (unknown) (unknown) (no date) (unknown) (unknown) clear and mucous membranes are moist. Neck is supple and symmetric, trachea is (units unknown) (unknown) (unknown) (no date) (unknown) (unknown) comparison to EKG from 12/18/2022, last echo 11/2022 EF 35-40%. Patient (units unknown) (unknown) (unknown) (no date) (unknown) (unknown) daily short acting metoprolol. This should work better for you. (units unknown) (unknown) (unknown) (no date) (unknown) (unknown) dietary, lifestyle, exercise, and weight changes. (units unknown) (unknown) (unknown) (no date) (unknown) (unknown) difficulty with ambulation, recent falls, head injury, LOC, currently no fever, (units unknown) (unknown) (unknown) (no date) (unknown) (unknown) extremely resistant to coming into the emergency department, is frequently (units unknown) (unknown) (unknown) (no date) (unknown) (unknown) fevers generally feeling unwell he states his heart rate has been fast, fever x (units unknown) (unknown) (unknown) (no date) (unknown) (unknown) household members: spouse (units unknown) (unknown) (unknown) (no date) (unknown) (unknown) hypotension 102/59, 98/54, map 75, HR 86 Afib, RR 20, O2 saturation 94% on room (units unknown) (unknown) (unknown) (no date) (unknown) (unknown) increased swelling redness and pain of the left lower extremity for the past (units unknown) (unknown) (unknown) (no date) (unknown) (unknown) initial lactate 3.2, repeat 1. Sodium 128, Cl 96, BUN 24, bicarb 19, glucose (units unknown) (unknown) (unknown) (no date) (unknown) (unknown) insulin glargine [Lantus U-100 Insulin] 100 unit/mL Solution (units unknown) (unknown) (unknown) (no date) (unknown) (unknown) intact, no gross deficits noted of cranial nerves. (units unknown) (unknown) (unknown) (no date) (unknown) (unknown) lisinopril 5 mg tablet (units unknown) (unknown) (unknown) (no date) (unknown) (unknown) long acting version and it wasn't working as well. So you are now on a twice (units unknown) (unknown) (unknown) (no date) (unknown) (unknown) medication, illness, injury, or trauma. (units unknown) (unknown) (unknown) (no date) (unknown) (unknown) medications regularly.? He was admitted for AFib RVR in November and was not (units unknown) (unknown) (unknown) (no date) (unknown) (unknown) metformin 500 mg Tablet (units unknown) (unknown) (unknown) (no date) (unknown) (unknown) metoprolol succinate 50 mg tablet extended release 24 hr (units unknown) (unknown) (unknown) (no date) (unknown) (unknown) metoprolol tartrate 50 mg Tablet (units unknown) (unknown) (unknown) (no date) (unknown) (unknown) midline, no adenopathy, no thyroid enlargement, nontender, no masses palpated. (units unknown) (unknown) (unknown) (no date) (unknown) (unknown) negative for, FiO2 21. WBC 15.9, newt 13,000, mono 1500 procalcitonin 0.5, (units unknown) (unknown) (unknown) (no date) (unknown) (unknown) negative, COVID influenza a/B/RSV are all negative. 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 Patient (units unknown) (unknown) (unknown) (no date) (unknown) (unknown) normal. (units unknown) (unknown) (unknown) (no date) (unknown) (unknown) occupational status: employed (units unknown) (unknown) (unknown) (no date) (unknown) (unknown) on admission- sepsis resolved (units unknown) (unknown) (unknown) (no date) (unknown) (unknown) on admission-resolved (units unknown) (unknown) (unknown) (no date) (unknown) (unknown) patient's obesity increases the difficulty and complexity of medical and/or (units unknown) (unknown) (unknown) (no date) (unknown) (unknown) peripheral neuropathy, chronic,? present on admission-uncontrol led (units unknown) (unknown) (unknown) (no date) (unknown) (unknown) placed patient on Zosyn with Benadryl to be given prior to dosage patient has (units unknown) (unknown) (unknown) (no date) (unknown) (unknown) rate of 169, negative acute ST changes, depression in lead 1 and aVL, similar in (units unknown) (unknown) (unknown) (no date) (unknown) (unknown) rates up to 209, tachypneic respiratory rates 30-50 in atrial fibrillation. (units unknown) (unknown) (unknown) (no date) (unknown) (unknown) redness persisted on discharge. Advised to elevated LE. (units unknown) (unknown) (unknown) (no date) (unknown) (unknown) resolved (units unknown) (unknown) (unknown) (no date) (unknown) (unknown) retractions, or tachypneic labored breathing (units unknown) (unknown) (unknown) (no date) (unknown) (unknown) maldonado erythematous and warmth to touch has improved, radial and pedal pulses are (units unknown) (unknown) (unknown) (no date) (unknown) (unknown) shock secondary to left lower extremity cellulitis, hyponatremia (units unknown) (unknown) (unknown) (no date) (unknown) (unknown) states [facility] In the ED patient was (units unknown) (unknown) (unknown) (no date) (unknown) (unknown) such as morbidity and mortality as well as impaired wound healing. (units unknown) (unknown) (unknown) (no date) (unknown) (unknown) surgical interventions, management and increases the chances of poor outcome (units unknown) (unknown) (unknown) (no date) (unknown) (unknown) taking medications regularly at that time.? Patient presents with 5 days of (units unknown) (unknown) (unknown) (no date) (unknown) (unknown) time. (units unknown) (unknown) (unknown) (no date) (unknown) (unknown) to obesity as it relates to chronic illnesses:, and acute illness.? The (units unknown) (unknown) (unknown) (no date) (unknown) (unknown) tolerated well and not had any reaction. (units unknown) (unknown) (unknown) (no date) (unknown) (unknown) urinary incontinence/retent ion, dysuria, frequency, urgency, hematuria, bowel (units unknown) (unknown) (unknown) (no date) (unknown) (unknown) vascular congestion. I personally reviewed all imaging and EKG. EKG: AFib RVR (units unknown) (unknown) (unknown) (no date) (unknown) (unknown) vision, difficulty swallowing, speech impairment, weakness, numbness, tingling, (units unknown) (unknown) (unknown) (no date) (unknown) (unknown) week, nausea and vomiting on way to the hospital. Patient was sent to be (units unknown) (unknown) (unknown) (no date) (unknown) (unknown) wheezes, rhonchi, or rales. (units unknown) (unknown) (unknown) (no date) (unknown) (unknown) which improved with antibiotics. You will now need to finish 6 more days of oral (units unknown) (unknown) (unknown) (no date) (unknown) (unknown) with metoprolol. I'm switching up your metoprolol a bit, as you were taking the (units unknown) (unknown) Result panel 474 (unknown) (no date) (unknown) (unknown) (no value) (units unknown) (unknown) (unknown) (no date) (unknown) (unknown) NO GROWTH AFTER 4 DAYS (units unknown) (unknown) Result panel 475 (unknown) (no date) (unknown) (unknown) 12.2 % (unknown) (unknown) (no date) (unknown) (unknown) 12.2 % (unknown) Result panel 476 (unknown) (no date) (unknown) (unknown) (no value) (units unknown) (unknown) (unknown) (no date) (unknown) (unknown) NO GROWTH AFTER 5 DAYS (units unknown) (unknown) Result panel 477 (unknown) (no date) (unknown) (unknown) (no value) (units unknown) (unknown) (unknown) (no date) (unknown) (unknown) NO GROWTH AFTER 5 DAYS (units unknown) (unknown) Result panel 478 (unknown) (no date) (unknown) (unknown) 0.251 ng/ml (unknown) (unknown) (no date) (unknown) (unknown) 0.251 ng/ml (unknown) Social History date description facility 2023-01-15 00[facility] date measurement value units 2023-01-15 00:00 BP_diastolic 53 mmHg 2023-01-15 00:00 BP_systolic 107 mmHg 2023-01-15 00:00 heart_rate 105 /min 2023-01-15 00:00 height_metric 182.88 cm 2023-01-15 00:00 height_standard 72 in 2023-01-15 00:00 o2_saturation 95 % 2023-01-15 00:00 respiration_rate 35 /min 2023-01-15 00:00 temperature_metric 38.39 C 2023-01-15 00:00 temperature_standard 101.1 F 2023-01-15 00:00 weight_metric 103 kg 2023-01-15 00:00 weight_standard 227.08 lb 2023-01-16 00:00 weight_metric 101 kg 2023-01-16 00:00 weight_standard 222.67 lb 2023-01-18 00:00 BP_diastolic 90 mmHg 2023-01-18 00:00 BP_systolic 137 mmHg 2023-01-18 00:00 heart_rate 89 /min 2023-01-18 00:00 o2_saturation 98 % 2023-01-18 00:00 respiration_rate 18 /min 2023-01-18 00:00 temperature_metric 36.56 C 2023-01-18 00:00 temperature_standard 97.8 F
[2023-03-31] MEDS ORDERED: ALBUTEROL NEB 2.5 MG/3 ML INH ONE (19:13)
[2023-03-31] MEDS ORDERED: NITROGLYCERIN 50 MG/250 ML 50 MG/250 ML BOTTLE IV ONE (19:15)
[2023-03-31 19:17] LABS: BASOPHILS % (AUTO) 0.3 %; EOSINOPHILS # (AUTO) 0.2 10^3/uL (0.0-0.7); EOSINOPHILS % (AUTO) 1.6 %; HCT - HEMATOCRIT 45.7 % (42.0-52.0); HGB - HEMOGLOBIN 14.6 g/dL (14.0-18.0); LYMPHOCYTES # (AUTO) 1.8 10^3/uL (1.5-3.5); LYMPHOCYTES % (AUTO) 16.4 %; MEAN CORPUSCULAR HEMOGLOBIN 29.4 pg (27.0-31.0); MEAN CORPUSCULAR HGB CONC 31.9 g/dL (32.0-36.0); MEAN CORPUSCULAR VOLUME 92.1 fL (80.0-94.0); MEAN PLATELET VOLUME 10.5 fL (7.4-11.4); MONOCYTES # (AUTO) 0.5 10^3/uL (0.0-1.0); MONOCYTES % (AUTO) 4.4 %; NEUTROPHILS # (AUTO) 8.5 10^3/uL (1.5-6.6); PLT - PLATELET COUNT 241 10^3/uL (130-450); RED BLOOD COUNT 4.96 10^6/uL (4.70-6.10); RED CELL DISTRIBUTION WIDTH 14.5 % (12.0-15.0); WHITE BLOOD COUNT 11.1 x10^3/uL (4.8-10.8)
--- NOTE | 2023-03-31 19:22 | XRAY Report ---
PROCEDURE: Chest 1 View X-Ray INDICATIONS: dyspnea TECHNIQUE: One view of the chest was acquired. COMPARISON: None. FINDINGS: Surgical changes and devices: None. Lungs and pleura: Diffuse bilateral interstitial opacities and prominence of the central pulmonary v asculature. No pleural effusion or pneumothorax. Mediastinum: Mediastinal contours appear normal. Heart size is enlarged. Bones and chest wall: No suspicious bony lesions. Overlying soft tissues appear unremarkable. IMPRESSION: Cardiomegaly and diffuse bilateral interstitial opacities are suspicious for pulmonary edema/congesti ve heart failure. Reviewed by: Cory Oliva MD on 03/31/2023 7:20 PM PDT Approved by: Cory Oliva MD on 03/31/2023 7:20 PM PDT Station ID: [id number]
[2023-03-31 19:28] LABS: ALBUMIN 3.9 g/dL (3.2-5.5); ALBUMIN/GLOBULIN RATIO 1.1 (1.0-2.2); BILIRUBIN,TOTAL 0.9 mg/dL (0.2-1.0); CALCIUM 8.6 mg/dL (8.5-10.3); MAGNESIUM 1.5 mg/dL (1.7-2.8); PHOSPHORUS 4.5 mg/dL (2.5-4.6); POTASSIUM 3.5 mmol/L (3.5-5.0); TOTAL PROTEIN 7.5 g/dL (6.7-8.2)
[2023-03-31] MEDS ORDERED: INSULIN REGULAR HUMAN 300 UNIT/3 ML VIAL IVP STA (19:39)
[2023-03-31] MEDS ORDERED: MAGNESIUM SULFATE 2 GRAM 2 GM/50 ML BAG IV ONE ×2 (19:45→20:00)
[2023-03-31] MEDS ORDERED: ACETAMINOPHEN 325 MG TABLET PO PRN (19:53)
[2023-03-31] MEDS ORDERED: oxyCODONE 5 MG TABLET PO PRN (19:53)
[2023-03-31] MEDS ORDERED: SODIUM CHLORIDE FLUSH 0.9% 10 ML SYRINGE IVP PRN (19:53)
[2023-03-31] MEDS ORDERED: ZOLPIDEM 5 MG TABLET PO PRN (19:53)
[2023-03-31] MEDS ORDERED: ONDANSETRON 4 MG/2 ML VIAL IVP PRN (19:53)
[2023-03-31] MEDS ORDERED: METOPROLOL SUCCINATE 50 MG TABLET PO STA (19:57)
[2023-03-31] MEDS ORDERED: NITROGLYCERIN 2% PASTE TOP STA (19:58)
[2023-03-31 20:09] LABS: B. PARAPERTUSSIS- RESP PCR PAN NOT DETECTED; B. PERTUSSIS- RESP PCR PANEL NOT DETECTED; C. PNEUMONIAE- RESP PCR PANEL NOT DETECTED; CORONAVIRUS 229E-RESP PCR NOT DETECTED; CORONAVIRUS HKU1-RESP PCR NOT DETECTED; CORONAVIRUS NL63-RESP PCR NOT DETECTED; CORONAVIRUS OC43-RESP PCR NOT DETECTED; HUMAN METAPNEUMOVIRUS NOT DETECTED; INFLUENZA A- RESP PCR PANEL NOT DETECTED; INFLUENZA B - RESP PCR PANEL NOT DETECTED; M. PNEUMONIAE- RESP PCR PANEL NOT DETECTED; PARAINFLUENZA VIRUS 1 NOT DETECTED; PARAINFLUENZA VIRUS 2 NOT DETECTED; PARAINFLUENZA VIRUS 3 NOT DETECTED; PARAINFLUENZA VIRUS 4 NOT DETECTED; RHINOVIRUS/ENTEROVIRUS NOT DETECTED; RSV- RESP PCR PANEL NOT DETECTED; SARS-CoV-2 -RESP PCR PANEL NOT DETECTED
--- NOTE | 2023-03-31 20:14 | HISTORY & PHYSICAL EXAMINATION ---
Chief Complaint - Chief Complaint Chief Complaint: SOB History of Present Illness - Admitted From Admitted From:: Home - History Obtained From Records Reviewed: Yes History obtained from: Patient and ER team Exam Limitations: Telemed - History of Present Illness HPI Comment/Other: 67 year-old gentleman with history of A-fib on xarelto, PR, hypertension, hypercholesterolemia, and diabetes. He has had pedal edema for the last 4 weeks or so that is worsening over the last 2 days has had chest congestion worsening trouble breathing. It is not associated with fever or chest pain. On EMS arrival they found him to have a saturation of 82% on room air with respiratory distress. On route he received a DuoNeb, 40 mg of IV Lasix, and 25 mg of IV diltiazem for rapid atrial fibrillation and was placed on CPAP with significant improvement in his symptoms. 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 He has no chest pain, was in Af ib with rvr which has improved post intervent ions by ER aka CPAP and Diuretics and NTG drip, when seen by me is able to speak in full sentence comfortable, daughter in law works as RN at [employer]. Has +3/4 lower ext edema . Blood sugar was high but improved after getting insulin also BNP is elevated, troponin is negative History - Past Medical History Cardiovascular: reports: Hypertension, High cholesterol, Atrial fibrillation Respiratory: reports: None Endocrine/Autoimmune: reports: Type 2 diabetes GI: reports: None : reports: None HEENT: reports: None Psych: reports: None Musculoskeletal: reports: None Derm: reports: None MRSA Hx?: No - Past Surgical History General: reports: Hiatal hernia repair Meds/Allgy - Home Medications Home Medications: Ambulatory Orders Medication Instructions Recorded Confirmed Atorvastatin [Lipitor] 40 mg ORAL DAILY 03/31/23 03/31/23 Insulin Glargine [Lantus Solostar] 12 unit SUBQ QPM 03/31/23 03/31/23 Metoprolol Tartrate [Lopressor] 50 mg PO BID 03/31/23 03/31/23 Rivaroxaban [Xarelto] 20 mg PO QPM 03/31/23 03/31/23 lisinopriL [Zestril] 5 mg PO DAILY 03/31/23 03/31/23 metFORMIN [Glucophage] 500 mg PO BIDWM 03/31/23 03/31/23 - Allergies Allergies/Adverse Reactions: Allergies Allergy/AdvReac Type Severity Reaction Status Date / Time piperacillin [From Zosyn] Allergy Rash Verified 03/31/23 19:03 tazobactam [From Zosyn] Allergy Rash Verified 03/31/23 19:03 Review of Systems - Cardiovascular Cariovascular: reports: Irregular heart rate, Palpitations, Edema, Exertional dyspnea, Orthopnea - Respiratory Respiratory: reports: Cough - Neurological Neurological: reports: General weakness Prior Level of Functionality: Independent with ADL, still actively drives Exam - Vital Signs Vital Signs: Vital Signs x48h Temp Pulse Resp BP Pulse Ox O2 Flow Rate 03/31/23 19:37 83 18 129/72 96 4 03/31/23 19:18 91 28 H 136/83 H 96 4 03/31/23 19:10 90 24 4 03/31/23 18:55 36.5 C 87 32 H 153/73 H 95 - Physical Exam General Appearance: positive: No acute distress Eyes Bilateral: positive: Normal inspection, PERRL Neck: positive: Nml inspection (JVD +ve) Respiratory: positive: No respiratory distress, Rales Cardiovascular: positive: Irregularly irregular, Gallop/S3 Abdomen: positive: Non-tender, No organomegaly Skin: positive: Color nml, No rash Extremities: positive: Full ROM, Pedal edema Neurologic/Psychiatric: positive: Oriented x3, CN's nml (2-12) Sepsis Event Note (H) - Evaluation Current Stage of Sepsis: Ruled out Conclusion/Plan - Problem List (1) Atrial fibrillation with RVR Conclusion/Plan: Rate control HR improved Post diuresis Check Echo in am Continue Xarelto Continue home meds (2) CHF (congestive heart failure) Conclusion/Plan: Daily weight Strict in and out Bumex 2 mg ivp x one dose in am Torpol Xl 50 mg Lisinopril 10 mg Aldactone 25 mg daily Continue statin Has hx of CAD REpeat troponin in am EKG shows A fibw with RVR with no current of injury DVT prophylaxis on Xarelto if leg swelling not impoving check lower ext venous usg Qualifiers: Heart failure type: unspecified Heart failure chronicity: acute Qualified Code(s): I50.9 - Heart failure, unspecified (3) Pulmonary edema Conclusion/Plan: Improved OFF CPAP On 4 liters NC CPAP PRN Qualifiers: Chronicity: acute Qualified Code(s): J81.0 - Acute pulmonary edema (4) Uncontrolled type 2 diabetes mellitus Conclusion/Plan: Check A1c continue home meds On Lantus and Metformin accuchecks with sliding scale coverage Qualifiers: Glycemic state: with hyperglycemia Qualified Code(s): E11.65 - Type 2 diabetes mellitus with hyperglycemia - Lab Results Fish Bones: 03/31/23 19:09 03/31/23 19:09 - Diagnostic Imaging Results Diagnostic Imaging Results: positive: Final report reviewed - EKG Results EKG Interpreted Independently: Yes EKG Findings: A fib with RVR
[2023-03-31] MEDS: lisinopriL 5 MG TABLET PO SCH (21:15)
[2023-03-31] MEDS: INSULIN GLARGINE-YFGN 300 UNIT/3 ML PEN SUBQ SCH (21:15)
[2023-04-01] MEDS: SODIUM CHLORIDE FLUSH 0.9% 10 ML SYRINGE IVP SCH ×3 (00:20→15:56)
[2023-04-01 05:22] LABS: BASOPHILS % (AUTO) 0.3 %; EOSINOPHILS # (AUTO) 0.1 10^3/uL (0.0-0.7); EOSINOPHILS % (AUTO) 0.6 %; HCT - HEMATOCRIT 41.2 % (42.0-52.0); HGB - HEMOGLOBIN 13.1 g/dL (14.0-18.0); LYMPHOCYTES # (AUTO) 0.8 10^3/uL (1.5-3.5); LYMPHOCYTES % (AUTO) 8.8 %; MEAN CORPUSCULAR HEMOGLOBIN 29.2 pg (27.0-31.0); MEAN CORPUSCULAR HGB CONC 31.8 g/dL (32.0-36.0); MEAN PLATELET VOLUME 10.7 fL (7.4-11.4); MONOCYTES # (AUTO) 0.5 10^3/uL (0.0-1.0); NEUTROPHILS # (AUTO) 7.5 10^3/uL (1.5-6.6); PLT - PLATELET COUNT 215 10^3/uL (130-450); RED BLOOD COUNT 4.48 10^6/uL (4.70-6.10); RED CELL DISTRIBUTION WIDTH 14.6 % (12.0-15.0); WHITE BLOOD COUNT 8.9 x10^3/uL (4.8-10.8)
[2023-04-01 05:42] LABS: ALBUMIN 3.4 g/dL (3.2-5.5); ALKALINE PHOSPHATASE 86 IU/L (42-121); ALT ALANINE AMINOTRANSFERASE 27 IU/L (10-60); AST ASPARTATE AMINOTRANSFERASE 19 IU/L (10-42); BILIRUBIN,TOTAL 1.1 mg/dL (0.2-1.0); BUN - BLOOD UREA NITROGEN 21 mg/dL (6-20); CALCIUM 8.7 mg/dL (8.5-10.3); CARBON DIOXIDE - CO2 27 mmol/L (21-32); CHLORIDE 108 mmol/L (101-111); CHOL/HDL RATIO 2.4 (<5.0); CHOLESTEROL 94 mg/dL; GFR - MDRD 74 (>89); GLUCOSE 262 mg/dL (70-100); HDL CHOLESTEROL 39 mg/dL; LDL CHOLESTEROL,CALCULATED 44 mg/dL; LDL/HDL RATIO 1.1 (<3.6); MAGNESIUM 1.8 mg/dL (1.7-2.8); POTASSIUM 4.3 mmol/L (3.5-5.0); SODIUM 142 mmol/L (135-145); TOTAL PROTEIN 6.7 g/dL (6.7-8.2); TRIGLYCERIDES 55 mg/dL; VLDL CHOLESTEROL 11 mg/dL
[2023-04-01] MEDS ORDERED: metFORMIN 500 MG TABLET PO SCH (08:00)
[2023-04-01 08:05] LABS: ESTIMATED AVERAGE GLUCOSE 192 mg/dL (70-100); HEMOGLOBIN A1c% 8.3 % (4.27-6.07)
[2023-04-01] MEDS: ATORVASTATIN 10 MG TABLET PO SCH (08:05)
[2023-04-01] MEDS: lisinopriL 5 MG TABLET PO SCH (08:05)
[2023-04-01] MEDS: SPIRONOLACTONE 25 MG TABLET PO SCH (08:05)
[2023-04-01] MEDS: APIXABAN 5 MG TABLET PO SCH ×2 (08:05→21:19)
[2023-04-01] MEDS: METOPROLOL TARTRATE 50 MG TABLET PO SCH ×2 (08:06→21:20)
[2023-04-01] MEDS ORDERED: lisinopriL 5 MG TABLET PO SCH (09:00)
[2023-04-01 09:17] LABS: % IRON SATURATION 15 % (20-50); IRON 48 ug/dL (45-182); TOTAL IRON BINDING CAPACITY 330 ug/dL (250-450); TRANSFERRIN 236 mg/dL (180-329)
--- NOTE | 2023-04-01 13:47 | PHARMACY PROGRESS NOTE ---
- Best Possible Medication History Admit Date and Time: 03/31/231952 Processed by: Nursing As the person ultimately responsible for medication therapy, providers are able to order a medication from an existing home medication list in [facility] via the "Reconcile Routine" prior to Confirmation of that medication by technical support assistant. Such practice is discouraged except when the physician, in their clinical judgment, deems that a medical need exists for a medication without regard to previous use.
--- NOTE | 2023-04-01 15:00 | PROVIDER PROGRESS NOTE ---
Assessment/Plan - Problem List (1) Atrial fibrillation with RVR Assessment/Plan: Patient has a history of atrial fibrillation and is on anticoagulation and will keep on Eliquis anticoagulation here -Monitor on telemetry for rate control -Check serial troponins -Echocardiogram ordered -Continue with patient's metoprolol dosing and increase as needed (2) CHF (congestive heart failure) Qualifiers: Heart failure type: unspecified Heart failure chronicity: acute Qualified Code(s): I50.9 - Heart failure, unspecified Assessment/Plan: Unclear if patient has diastolic and/or systolic failure -Await echocardiogram to be performed -Diuresis with IV Lasix twice daily monitor I's and O's -Continue with Nitropaste topically and DC in the near future -Continue with lisinopril dosing -Continue with telemetry (3) Uncontrolled type 2 diabetes mellitus Qualifiers: Glycemic state: with hyperglycemia Qualified Code(s): E11.65 - Type 2 diabetes mellitus with hyperglycemia Assessment/Plan: -Continue patient's home diabetes medications -Placed on subcu insulin protocol -check 4 times daily blood sugars -Placed on cardiac and carb controlled diet - Current Meds Current Meds: Current Medications Generic Name Dose Route Start Last Admin Trade Name Freq PRN Reason Stop Dose Admin Apixaban 5 mg 04/01/23 09:00 04/01/23 08:05 Apixaban 5 Mg Tablet PO 5 mg BID DEIDRA Administration Atorvastatin Calcium 40 mg 04/01/23 09:00 04/01/23 08:05 Atorvastatin 10 Mg Tablet PO 40 mg DAILY DEIDRA Administration Insulin Glargine-yfgn 12 unit 03/31/23 21:00 03/31/23 21:15 Insulin Glargine-Yfgn 300 Unit/3 Ml Pen SUBQ 12 unit QPM DEIDRA Administration Lisinopril 10 mg 03/31/23 20:00 04/01/23 08:05 Lisinopril 5 Mg Tablet PO 10 mg DAILY DEIDRA Administration Metoprolol Tartrate 50 mg 04/01/23 09:00 04/01/23 08:06 Metoprolol Tartrate 50 Mg Tablet PO 50 mg BID DEIDRA Administration Sodium Chloride 10 ml 04/01/23 01:00 04/01/23 08:06 Sodium Chloride Flush 0.9% 10 Ml Syringe IVP 10 ml 0100,0900,1700 DEIDRA Administration Spironolactone 25 mg 04/01/23 09:00 04/01/23 08:05 Spironolactone 25 Mg Tablet PO 25 mg DAILY DEIDRA Administration - Lab Result Fish Bone Diagrams: 04/01/23 04:32 04/01/23 04:32 - Additional Planning My Orders: My Active Orders 04/01/23 09:00 Metoprolol Tartrate [Lopressor] 50 mg PO BID 04/01/23 14:55 Blood Glucose Checks - Eating [RC] 0800,1200,1700,2100 Initiate Hypoglycemia Protocol [RC] .protocol 04/01/23 15:00 TROPONIN I HIGH SENSITIVITY [IAI] Timed FUROSEMIDE INJ 40mg VIAL [LASIX INJ 40 mg VIAL] 40 mg IVP BIDDIURETIC 04/01/23 17:00 Insulin Lispro [Humalog Kwikpen U-100] 1 - 5 unit SUBQ 0800,1200,1700,2100 04/02/23 05:00 BMP, RFLX TO IONIZED CA IF [CHEM] DAILYLAB CBC - COMP BLD CT W/AUTO DIFF [HEME] DAILYLAB Subjective - Subjective Patient Reports: Feeling Better ([facility] atrial fibrillation, increasing shortness of breath with fluid overload and was given Lasix along with placed on BiPAP. He was also given IV diltiazem for RVR atrial fibrillation. Patient over the past month has been having worsenin) Objective Vital Signs: Vital Signs - 24 hr 03/31/23 03/31/23 03/31/23 18:55 19:10 19:18 Temperature 36.5 C Heart Rate 87 90 91 Heart Rate [ Monitoring electrodes] Respiratory 32 H 24 28 H Rate Blood Pressure 153/73 H 136/83 H Blood Pressure [Right Brachial artery] O2 Saturation 95 96 If not protocol 4 4 : Oxygen Flow, liters/minute 03/31/23 03/31/23 03/31/23 19:37 20:18 20:38 Temperature Heart Rate 83 100 88 Heart Rate [ Monitoring electrodes] Respiratory 18 28 H 21 Rate Blood Pressure 129/72 125/74 116/68 Blood Pressure [Right Brachial artery] O2 Saturation 96 98 95 If not protocol 4 4 : Oxygen Flow, liters/minute 03/31/23 03/31/23 03/31/23 20:49 21:00 23:00 Temperature 36.3 C L Heart Rate Heart Rate [ 66 Monitoring electrodes] Respiratory 22 Rate Blood Pressure Blood Pressure 126/65 [Right Brachial artery] O2 Saturation 93 If not protocol 2 2 2 : Oxygen Flow, liters/minute 04/01/23 04/01/23 04/01/23 00:00 04:37 07:40 Temperature 36.3 C L 36.2 C L Heart Rate Heart Rate [ 91 77 Monitoring electrodes] Respiratory 19 18 Rate Blood Pressure Blood Pressure 114/61 114/60 [Right Brachial artery] O2 Saturation 97 97 If not protocol 2 2 2 : Oxygen Flow, liters/minute 04/01/23 04/01/23 04/01/23 08:06 09:00 12:02 Temperature 36.4 C L 36.4 C L Heart Rate Heart Rate [ 81 98 Monitoring electrodes] Respiratory 18 20 Rate Blood Pressure 124/78 Blood Pressure 124/78 122/79 [Right Brachial artery] O2 Saturation 96 95 If not protocol : Oxygen Flow, liters/minute Oxygen O2 Source Room air Oxygen Flow Rate 4 I&O (Last 24 Hrs): Intake and Output Totals x24h 03/30/23 03/31/23 04/01/23 23:59 23:59 23:59 Intake Total 115.75 750 Output Total 1300 1525 Balance -1184.25 -775 General: Alert, Oriented x3 HEENT: Atraumatic Neuro: Alert, Non Focal Cardiovascular: Other (Irregular regular rate and rhythm S1-S2 rate approximate ly 100) Respiratory: Other (Decreased breath sounds at his bases bilaterally) Abdomen: Normal bowel sounds, Soft Extremities: Other (2+ lower extremity edema with some venous stasis changes up to approximately above his knee) - Results Results: Laboratory Results WBC 8.9 x10^3/uL (4.8-10.8) 04/01/23 04:32 RBC 4.48 10^6/uL (4.70-6.10) L 04/01/23 04:32 Hgb 13.1 g/dL (14.0-18.0) L 04/01/23 04:32 Hct 41.2 % (42.0-52.0) L 04/01/23 04:32 MCV 92.0 fL (80.0-94.0) 04/01/23 04:32 MCH 29.2 pg (27.0-31.0) 04/01/23 04:32 MCHC 31.8 g/dL (32.0-36.0) L 04/01/23 04:32 RDW 14.6 % (12.0-15.0) 04/01/23 04:32 Plt Count 215 10^3/uL (130-450) 04/01/23 04:32 MPV 10.7 fL (7.4-11.4) 04/01/23 04:32 Neut # (Auto) 7.5 10^3/uL (1.5-6.6) H 04/01/23 04:32 Lymph # (Auto) 0.8 10^3/uL (1.5-3.5) L 04/01/23 04:32 Mercer # (Auto) 0.5 10^3/uL (0.0-1.0) 04/01/23 04:32 Eos # (Auto) 0.1 10^3/uL (0.0-0.7) 04/01/23 04:32 Baso # (Auto) 0.0 10^3/uL (0.0-0.1) 04/01/23 04:32 Absolute Nucleated RBC 0.00 x10^3/uL 04/01/23 04:32 Nucleated RBC % 0.0 /100WBC 04/01/23 04:32 Sodium 142 mmol/L (135-145) 04/01/23 04:32 Potassium 4.3 mmol/L (3.5-5.0) 04/01/23 04:32 Chloride 108 mmol/L (101-111) 04/01/23 04:32 Carbon Dioxide 27 mmol/L (21-32) 04/01/23 04:32 Anion Gap 7.0 (6-13) 04/01/23 04:32 BUN 21 mg/dL (6-20) H 04/01/23 04:32 Creatinine 1.0 mg/dL (0.6-1.2) 04/01/23 04:32 Estimated GFR (MDRD) 74 (>89) L 04/01/23 04:32 Glucose 262 mg/dL (70-100) H 04/01/23 04:32 POC Whole Bld Glucose 248 mg/dL (70 - 100) H 04/01/23 11:45 Estimat Average Glucose 192 mg/dL (70-100) H 04/01/23 04:32 Hemoglobin A1c % 8.3 % (4.27-6.07) H 04/01/23 04:32 Calcium 8.7 mg/dL (8.5-10.3) 04/01/23 04:32 Phosphorus 4.5 mg/dL (2.5-4.6) 03/31/23 19:09 Magnesium 1.8 mg/dL (1.7-2.8) 04/01/23 04:32 Iron 48 ug/dL (45-182) 04/01/23 04:32 TIBC 330 ug/dL (250-450) 04/01/23 04:32 % Saturation 15 % (20-50) L 04/01/23 04:32 Transferrin 236 mg/dL (180-329) 04/01/23 04:32 Total Bilirubin 1.1 mg/dL (0.2-1.0) H 04/01/23 04:32 AST 19 IU/L (10-42) 04/01/23 04:32 ALT 27 IU/L (10-60) 04/01/23 04:32 Alkaline Phosphatase 86 IU/L (42-121) 04/01/23 04:32 Troponin I High Sens 34.2 ng/L (2.3-19.7) H* 04/01/23 04:32 B-Natriuretic Peptide 553 pg/mL (5-100) H 03/31/23 19:09 Total Protein 6.7 g/dL (6.7-8.2) 04/01/23 04:32 Albumin 3.4 g/dL (3.2-5.5) 04/01/23 04:32 Globulin 3.3 g/dL (2.1-4.2) 04/01/23 04:32 Albumin/Globulin Ratio 1.0 (1.0-2.2) 04/01/23 04:32 Triglycerides 55 mg/dL (-149) 04/01/23 04:32 Cholesterol 94 mg/dL (-199) 04/01/23 04:32 LDL Cholesterol, Calc 44 mg/dL (-129) 04/01/23 04:32 VLDL Cholesterol 11 mg/dL 04/01/23 04:32 HDL Cholesterol 39 mg/dL (60-) L 04/01/23 04:32 LDL/HDL Ratio 1.1 (<3.6) 04/01/23 04:32 Cholesterol/HDL Ratio 2.4 (<5.0) 04/01/23 04:32 TSH 2.46 uIU/mL (0.34-5.60) 04/01/23 04:32 Nasal Adenovirus (PCR) NOT DETECTED 03/31/23 19:06 Nasal B. parapertussis DNA (PCR) NOT DETECTED 03/31/23 19:06 Nasal Coronavir 229E PCR NOT DETECTED 03/31/23 19:06 Nasal Coronavir HKU1 PCR NOT DETECTED 03/31/23 19:06 Nasal Coronavir NL63 PCR NOT DETECTED 03/31/23 19:06 Nasal Coronavir OC43 PCR NOT DETECTED 03/31/23 19:06 Nasal Enterovir/Rhinovir PCR NOT DETECTED 03/31/23 19:06 Nasal Influenza B PCR NOT DETECTED 03/31/23 19:06 Nasal Influenza A PCR NOT DETECTED 03/31/23 19:06 Nasal Parainfluen 1 PCR NOT DETECTED 03/31/23 19:06 Nasal Parainfluen 2 PCR NOT DETECTED 03/31/23 19:06 Nasal Parainfluen 3 PCR NOT DETECTED 03/31/23 19:06 Nasal Parainfluen 4 PCR NOT DETECTED 03/31/23 19:06 Nasal RSV (PCR) NOT DETECTED 03/31/23 19:06 Nasal B.pertussis DNA PCR NOT DETECTED 03/31/23 19:06 Nasal C.pneumoniae (PCR) NOT DETECTED 03/31/23 19:06 Prasanna Human Metapneumo PCR NOT DETECTED 03/31/23 19:06 Nasal M.pneumoniae (PCR) NOT DETECTED 03/31/23 19:06 Nasal SARS-CoV-2 (PCR) NOT DETECTED 03/31/23 19:06 - Procedures Procedures: Procedures INSPECTION OF LOWER INTESTINAL TRACT, ENDO (08/18/16) Sepsis Event Note (H) - Evaluation Current Stage of Sepsis: Ruled out ABX Reporting Has patient been on IV antibiotics over the past 48 hours?: No
[2023-04-01] MEDS: FUROSEMIDE 40 MG/4 ML VIAL IVP SCH (15:55)
[2023-04-01] MEDS: INSULIN LISPRO 300 UNIT/3 ML PEN SUBQ SCH ×2 (17:15→21:20)
[2023-04-01] MEDS: INSULIN GLARGINE-YFGN 300 UNIT/3 ML PEN SUBQ SCH (21:19)
[2023-04-02] MEDS: SODIUM CHLORIDE FLUSH 0.9% 10 ML SYRINGE IVP SCH ×3 (00:35→17:09)
[2023-04-02 05:59] LABS: BASOPHILS % (AUTO) 0.4 %; EOSINOPHILS # (AUTO) 0.3 10^3/uL (0.0-0.7); EOSINOPHILS % (AUTO) 3.2 %; HCT - HEMATOCRIT 41.2 % (42.0-52.0); HGB - HEMOGLOBIN 13.2 g/dL (14.0-18.0); LYMPHOCYTES # (AUTO) 1.3 10^3/uL (1.5-3.5); LYMPHOCYTES % (AUTO) 15.6 %; MEAN CORPUSCULAR HEMOGLOBIN 29.5 pg (27.0-31.0); MONOCYTES # (AUTO) 0.7 10^3/uL (0.0-1.0); MONOCYTES % (AUTO) 7.9 %; NEUTROPHILS # (AUTO) 5.9 10^3/uL (1.5-6.6); NEUTROPHILS % (AUTO) 72.7 %; PLT - PLATELET COUNT 227 10^3/uL (130-450); RED BLOOD COUNT 4.48 10^6/uL (4.70-6.10); RED CELL DISTRIBUTION WIDTH 14.7 % (12.0-15.0); WHITE BLOOD COUNT 8.2 x10^3/uL (4.8-10.8)
[2023-04-02 06:10] LABS: BUN - BLOOD UREA NITROGEN 21 mg/dL (6-20); CALCIUM 9.2 mg/dL (8.5-10.3); CARBON DIOXIDE - CO2 27 mmol/L (21-32); CHLORIDE 105 mmol/L (101-111); CREATININE 0.9 mg/dL (0.6-1.2); GFR - MDRD 84 (>89); GLUCOSE 173 mg/dL (70-100); IONIZED CALCIUM IF INDICATED NO; POTASSIUM 3.7 mmol/L (3.5-5.0); SODIUM 140 mmol/L (135-145)
[2023-04-02] MEDS: FUROSEMIDE 40 MG/4 ML VIAL IVP SCH ×2 (06:13→14:01)
[2023-04-02] MEDS: APIXABAN 5 MG TABLET PO SCH ×2 (08:02→21:23)
[2023-04-02] MEDS: ATORVASTATIN 10 MG TABLET PO SCH (08:02)
[2023-04-02] MEDS: SPIRONOLACTONE 25 MG TABLET PO SCH (08:02)
[2023-04-02] MEDS: lisinopriL 5 MG TABLET PO SCH (08:02)
[2023-04-02] MEDS: METOPROLOL TARTRATE 50 MG TABLET PO SCH ×2 (08:02→21:23)
[2023-04-02] MEDS: INSULIN LISPRO 300 UNIT/3 ML PEN SUBQ SCH ×4 (08:03→21:24)
--- NOTE | 2023-04-02 14:16 | PROVIDER PROGRESS NOTE ---
Assessment/Plan - Problem List (1) Atrial fibrillation with RVR Assessment/Plan: Assessment/Plan: Patient has a history of atrial fibrillation and is on anticoagulation and will keep on Eliquis anticoagulation here -Monitor on telemetry for rate control -Check serial troponins -Echocardiogram ordered -Continue with patient's metoprolol dosing and increase as needed (2) CHF (congestive heart failure) Qualifiers: Heart failure type: unspecified Heart failure chronicity: acute Qualified Code(s): I50.9 - Heart failure, unspecified Assessment/Plan: Unclear if patient has diastolic and/or systolic failure -Await echocardiogram to be performed -Diuresis with IV Lasix twice daily monitor I's and O's -Continue with Nitropaste topically and DC in the near future -Continue with lisinopril dosing -Continue with telemetry (3) Uncontrolled type 2 diabetes mellitus Qualifiers: Glycemic state: with hyperglycemia Qualified Code(s): E11.65 - Type 2 diabetes mellitus with hyperglycemia Assessment/Plan: -Continue patient's home diabetes medications -Placed on subcu insulin protocol -check 4 times daily blood sugars -Placed on cardiac and carb controlled diet (2) CHF (congestive heart failure) Qualifiers: Heart failure type: unspecified Heart failure chronicity: acute Qualified Code(s): I50.9 - Heart failure, unspecified (3) Uncontrolled type 2 diabetes mellitus Qualifiers: Glycemic state: with hyperglycemia Qualified Code(s): E11.65 - Type 2 diabetes mellitus with hyperglycemia - Current Meds Current Meds: Current Medications Generic Name Dose Route Start Last Admin Trade Name Freq PRN Reason Stop Dose Admin Apixaban 5 mg 04/01/23 09:00 04/02/23 08:02 Apixaban 5 Mg Tablet PO 5 mg BID DEIDRA Administration Atorvastatin Calcium 40 mg 04/01/23 09:00 04/02/23 08:02 Atorvastatin 10 Mg Tablet PO 40 mg DAILY DEIDRA Administration Furosemide 40 mg 04/01/23 15:00 04/02/23 14:01 Furosemide 40 Mg/4 Ml Vial IVP 40 mg BIDDIURETIC DEIDRA Administration Insulin Glargine-yfgn 12 unit 03/31/23 21:00 04/01/23 21:19 Insulin Glargine-Yfgn 300 Unit/3 Ml Pen SUBQ 12 unit QPM DEIDRA Administration Insulin Human Lispro 1 - 5 unit 04/01/23 17:00 04/02/23 11:18 Insulin Lispro 300 Unit/3 Ml Pen SUBQ 2 unit 0800,1200,1700,2100 DEIDRA Administration Protocol Lisinopril 10 mg 03/31/23 20:00 04/02/23 08:02 Lisinopril 5 Mg Tablet PO 10 mg DAILY DEIDRA Administration Metoprolol Tartrate 50 mg 04/01/23 09:00 04/02/23 08:02 Metoprolol Tartrate 50 Mg Tablet PO 50 mg BID DEIDRA Administration Sodium Chloride 10 ml 04/01/23 01:00 04/02/23 08:04 Sodium Chloride Flush 0.9% 10 Ml Syringe IVP 10 ml 0100,0900,1700 DEIDRA Administration Spironolactone 25 mg 04/01/23 09:00 04/02/23 08:02 Spironolactone 25 Mg Tablet PO 25 mg DAILY DEIDRA Administration - Lab Result Fish Bone Diagrams: 04/02/23 04:46 04/02/23 04:46 - Additional Planning My Orders: My Active Orders 04/01/23 14:55 Blood Glucose Checks - Eating [RC] 0800,1200,1700,2100 Initiate Hypoglycemia Protocol [RC] .protocol 04/01/23 15:00 FUROSEMIDE INJ 40mg VIAL [LASIX INJ 40 mg VIAL] 40 mg IVP BIDDIURETIC 04/01/23 17:00 Insulin Lispro [Humalog Kwikpen U-100] 1 - 5 unit SUBQ 0800,1200,1700,2100 Subjective - Subjective Patient Reports: Feeling Better Objective Vital Signs: Vital Signs - 24 hr 04/01/23 04/01/23 04/02/23 16:15 21:00 00:26 Temperature 36.2 C L 36.5 C 36.2 C L Heart Rate [ 69 86 80 Monitoring electrodes] Respiratory 20 19 18 Rate Blood Pressure Blood Pressure 120/82 H 133/63 H 135/88 H [Right Brachial artery] O2 Saturation 97 98 100 04/02/23 04/02/23 04/02/23 04:57 08:02 08:31 Temperature 36.3 C L 36.4 C L Heart Rate [ 73 70 Monitoring electrodes] Respiratory 18 18 Rate Blood Pressure 113/61 Blood Pressure 132/85 H 131/61 H [Right Brachial artery] O2 Saturation 96 99 04/02/23 12:03 Temperature 36.5 C Heart Rate [ 71 Monitoring electrodes] Respiratory 18 Rate Blood Pressure Blood Pressure 115/57 L [Right Brachial artery] O2 Saturation 98 Oxygen O2 Source Room air Oxygen Flow Rate 4 I&O (Last 24 Hrs): Intake and Output Totals x24h 03/31/23 04/01/23 04/02/23 23:59 23:59 23:59 Intake Total 115.75 870 760 Output Total 1300 3300 2400 Balance -1184.25 -5473 -0172 General: Alert, Oriented x3, Cooperative HEENT: Atraumatic Neck: Supple Neuro: Alert, Non Focal Cardiovascular: Regular rate, Normal S1, Normal S2 Respiratory: Other (Decreased breath sounds at his bases) Abdomen: Normal bowel sounds, Soft Extremities: Other (Improving 2+ lower extremity edema with some venous stasis changes) - Results Results: Laboratory Results WBC 8.2 x10^3/uL (4.8-10.8) 04/02/23 04:46 RBC 4.48 10^6/uL (4.70-6.10) L 04/02/23 04:46 Hgb 13.2 g/dL (14.0-18.0) L 04/02/23 04:46 Hct 41.2 % (42.0-52.0) L 04/02/23 04:46 MCV 92.0 fL (80.0-94.0) 04/02/23 04:46 MCH 29.5 pg (27.0-31.0) 04/02/23 04:46 MCHC 32.0 g/dL (32.0-36.0) 04/02/23 04:46 RDW 14.7 % (12.0-15.0) 04/02/23 04:46 Plt Count 227 10^3/uL (130-450) 04/02/23 04:46 MPV 11.0 fL (7.4-11.4) 04/02/23 04:46 Neut # (Auto) 5.9 10^3/uL (1.5-6.6) 04/02/23 04:46 Lymph # (Auto) 1.3 10^3/uL (1.5-3.5) L 04/02/23 04:46 [place] # (Auto) 0.7 10^3/uL (0.0-1.0) 04/02/23 04:46 Eos # (Auto) 0.3 10^3/uL (0.0-0.7) 04/02/23 04:46 Baso # (Auto) 0.0 10^3/uL (0.0-0.1) 04/02/23 04:46 Absolute Nucleated RBC 0.00 x10^3/uL 04/02/23 04:46 Nucleated RBC % 0.0 /100WBC 04/02/23 04:46 Sodium 140 mmol/L (135-145) 04/02/23 04:46 Potassium 3.7 mmol/L (3.5-5.0) 04/02/23 04:46 Chloride 105 mmol/L (101-111) 04/02/23 04:46 Carbon Dioxide 27 mmol/L (21-32) 04/02/23 04:46 Anion Gap 8.0 (6-13) 04/02/23 04:46 BUN 21 mg/dL (6-20) H 04/02/23 04:46 Creatinine 0.9 mg/dL (0.6-1.2) 04/02/23 04:46 Estimated GFR (MDRD) 84 (>89) L 04/02/23 04:46 Glucose 173 mg/dL (70-100) H 04/02/23 04:46 POC Whole Bld Glucose 209 mg/dL (70 - 100) H 04/02/23 11:10 Estimat Average Glucose 192 mg/dL (70-100) H 04/01/23 04:32 Hemoglobin A1c % 8.3 % (4.27-6.07) H 04/01/23 04:32 Calcium 9.2 mg/dL (8.5-10.3) 04/02/23 04:46 Ionized Calcium NO 04/02/23 04:46 Phosphorus 4.5 mg/dL (2.5-4.6) 03/31/23 19:09 Magnesium 1.8 mg/dL (1.7-2.8) 04/01/23 04:32 Iron 48 ug/dL (45-182) 04/01/23 04:32 TIBC 330 ug/dL (250-450) 04/01/23 04:32 % Saturation 15 % (20-50) L 04/01/23 04:32 Transferrin 236 mg/dL (180-329) 04/01/23 04:32 Total Bilirubin 1.1 mg/dL (0.2-1.0) H 04/01/23 04:32 AST 19 IU/L (10-42) 04/01/23 04:32 ALT 27 IU/L (10-60) 04/01/23 04:32 Alkaline Phosphatase 86 IU/L (42-121) 04/01/23 04:32 Troponin I High Sens 23.3 ng/L (2.3-19.7) H* 04/01/23 14:53 B-Natriuretic Peptide 553 pg/mL (5-100) H 03/31/23 19:09 Total Protein 6.7 g/dL (6.7-8.2) 04/01/23 04:32 Albumin 3.4 g/dL (3.2-5.5) 04/01/23 04:32 Globulin 3.3 g/dL (2.1-4.2) 04/01/23 04:32 Albumin/Globulin Ratio 1.0 (1.0-2.2) 04/01/23 04:32 Triglycerides 55 mg/dL (-149) 04/01/23 04:32 Cholesterol 94 mg/dL (-199) 04/01/23 04:32 LDL Cholesterol, Calc 44 mg/dL (-129) 04/01/23 04:32 VLDL Cholesterol 11 mg/dL 04/01/23 04:32 HDL Cholesterol 39 mg/dL (60-) L 04/01/23 04:32 LDL/HDL Ratio 1.1 (<3.6) 04/01/23 04:32 Cholesterol/HDL Ratio 2.4 (<5.0) 04/01/23 04:32 TSH 2.46 uIU/mL (0.34-5.60) 04/01/23 04:32 Nasal Adenovirus (PCR) NOT DETECTED 03/31/23 19:06 Nasal B. parapertussis DNA (PCR) NOT DETECTED 03/31/23 19:06 Nasal Coronavir 229E PCR NOT DETECTED 03/31/23 19:06 Nasal Coronavir HKU1 PCR NOT DETECTED 03/31/23 19:06 Nasal Coronavir NL63 PCR NOT DETECTED 03/31/23 19:06 Nasal Coronavir OC43 PCR NOT DETECTED 03/31/23 19:06 Nasal Enterovir/Rhinovir PCR NOT DETECTED 03/31/23 19:06 Nasal Influenza B PCR NOT DETECTED 03/31/23 19:06 Nasal Influenza A PCR NOT DETECTED 03/31/23 19:06 Nasal Parainfluen 1 PCR NOT DETECTED 03/31/23 19:06 Nasal Parainfluen 2 PCR NOT DETECTED 03/31/23 19:06 Nasal Parainfluen 3 PCR NOT DETECTED 03/31/23 19:06 Nasal Parainfluen 4 PCR NOT DETECTED 03/31/23 19:06 Nasal RSV (PCR) NOT DETECTED 03/31/23 19:06 Nasal B.pertussis DNA PCR NOT DETECTED 03/31/23 19:06 Nasal C.pneumoniae (PCR) NOT DETECTED 03/31/23 19:06 Prasanna Human Metapneumo PCR NOT DETECTED 03/31/23 19:06 Nasal M.pneumoniae (PCR) NOT DETECTED 03/31/23 19:06 Nasal SARS-CoV-2 (PCR) NOT DETECTED 03/31/23 19:06 - Procedures Procedures: Procedures INSPECTION OF LOWER INTESTINAL TRACT, ENDO (08/18/16) Sepsis Event Note (H) - Evaluation Current Stage of Sepsis: Ruled out ABX Reporting Has patient been on IV antibiotics over the past 48 hours?: No
[2023-04-02] MEDS: INSULIN GLARGINE-YFGN 300 UNIT/3 ML PEN SUBQ SCH (21:23)
[2023-04-03] MEDS: SODIUM CHLORIDE FLUSH 0.9% 10 ML SYRINGE IVP SCH ×3 (01:16→17:01)
[2023-04-03] MEDS: FUROSEMIDE 40 MG/4 ML VIAL IVP SCH ×2 (06:35→14:11)
[2023-04-03] MEDS: APIXABAN 5 MG TABLET PO SCH (08:01)
[2023-04-03] MEDS: lisinopriL 5 MG TABLET PO SCH (08:01)
[2023-04-03] MEDS: ATORVASTATIN 10 MG TABLET PO SCH (08:01)
[2023-04-03] MEDS: METOPROLOL TARTRATE 50 MG TABLET PO SCH (08:01)
[2023-04-03] MEDS: SPIRONOLACTONE 25 MG TABLET PO SCH (08:01)
[2023-04-03] MEDS: INSULIN LISPRO 300 UNIT/3 ML PEN SUBQ SCH ×3 (08:02→17:01)
--- NOTE | 2023-04-03 14:37 | Discharge Plan ---
Discharge Plan Problem Reviewed?: Yes Disposition: Home, Self Care Condition: Stable Prescriptions: Furosemide [Lasix] 40 mg PO DAILY #30 tablet Diet: Low Sodium (Please eat a diabetic diet that is low in sodium and low choleaterol.) Activity Restrictions: Activity as Tolerated Shower Restrictions: No Driving Restrictions: No Health Concerns: You were hospitalized because of low oxygen levels from fluid in your lungs which was caused by CHF. The CHF was caused by your atrial fib heart rate being very fast for a long time. You are being discharged home on new medications to continue the diuretic (to eliminate the extra fluid which is still present in your legs). Please see your PCP and/or Sales Representatives in the next 1 to 2 weeks to possibly adjust your medications and doses. Please follow the current list of medications that you should be on now. New prescriptions were electronically sent to the [facility] pharmacy. If you keep your legs elevated, the fluid will drain into your abdomen and you will urinate it out more quickly. Plan of Treatment: As above. Care Goals: Improvement in symptoms and stabilization are the goals. Assessment: Patient understands and agrees with the plan. Additional Instructions or Follow Up instructions: If you have new or worsening symptoms, call your PCP or your Sales Representatives for advice, or come to the ER. No Smoking: If you smoke, Please STOP! Call for help. Follow-up with: PETER OLIVA MD [Primary Care Provider] -
--- NOTE | 2023-04-03 14:42 | DISCHARGE SUMMARY ---
Discharge Summary Admit Date: 03/31/23 Discharge Date: 04/03/23 Discharging Provider: Dr Edward Primary Care Provider: Dr Angel Code Status: Attempt Resuscitation Condition at Discharge: Stable Discharge Disposition: 01 Home, Self Care - HPI History of Present Illness: 67 year-old gentleman with history of A-fib on xarelto, [place], hypertension, hypercholesterolemia, and diabetes. He has had pedal edema for the last 4 weeks or so that is worsening over the last 2 days has had chest congestion worsening trouble breathing. It is not associated with fever or chest pain. On EMS arrival they found him to have a saturation of 82% on room air with respiratory distress. On route he received a DuoNeb, 40 mg of IV Lasix, and 25 mg of IV diltiazem for rapid atrial fibrillation and was placed on CPAP with significant improvement in his symptoms. 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 He has no chest pain, was in Afib with rvr which has improved post interventions by ER, which was CPAP and Diuretics and NTG drip, so when seen by me is able to speak in full sentence comfortable, daughter in law works as RN at [employer] [facility] [place]. Has +3/4 lower ext edema . Blood sugar was high but improved after getting insulin also BNP is elevated, troponin is negative - HOSPITAL COURSE Hospital Course: (1) Atrial fibrillation with RVR Patient received IV Cardizem in the ER which helped control his rate. Patient has a history of atrial fibrillation, on Metoprolol and was on anticoagulation. We kept him on Eliquis and same B-jana dose while here. (2) CHF (congestive heart failure) He was diuresed with IV Lasix twice daily, monitoring I's and O's. He was kept on his same metoprolol and lisinopril doses. His TSH was WNL and troponins ruled him out for ACS. A complete Echocardiogram was done here that showed LVEF of 50 to 55% (therefore he has diastolic heart failure, probably from the RVR). At discharge she was on new Lasix 40 mg daily orally. (3) Uncontrolled type 2 diabetes mellitus: E11.65 - Type 2 diabetes mellitus with hyperglycemia Patient was kept on his home diabetic medications, placed on a carb controlled diet, had achs fingerstick checks and sliding scale insulin coverage while here. (4) HTN His BP was controlled on his B-jana, Lisinopril and the new Lasix. - ALLERGIES Allergies/Adverse Reactions: Allergies Allergy/AdvReac Type Severity Reaction Status Date / Time piperacillin [From Zosyn] Allergy Rash Verified 03/31/23 19:03 tazobactam [From Zosyn] Allergy Rash Verified 03/31/23 19:03 - MEDICATIONS Home Medications: Ambulatory Orders Medication Instructions Recorded Confirmed Atorvastatin [Lipitor] 40 mg ORAL DAILY 03/31/23 03/31/23 Insulin Glargine [Lantus Solostar] 12 unit SUBQ QPM 03/31/23 03/31/23 Metoprolol Tartrate [Lopressor] 50 mg PO BID 03/31/23 03/31/23 Rivaroxaban [Xarelto] 20 mg PO QPM 03/31/23 03/31/23 lisinopriL [Zestril] 5 mg PO DAILY 03/31/23 03/31/23 metFORMIN [Glucophage] 500 mg PO BIDWM 03/31/23 03/31/23 Furosemide [Lasix] 40 mg PO DAILY #30 tablet 04/03/23 - PHYSICAL EXAM AT DISCHARGE General Appearance: positive: No acute distress, Alert Eyes Bilateral: positive: Normal inspection, EOMI ENT: positive: ENT inspection nml, No signs of dehydration Neck: positive: Nml inspection, No JVD Respiratory: positive: No respiratory distress, Breath sounds nml Cardiovascular: positive: Irregularly irregular Abdomen: positive: Non-tender, No distention Skin: positive: Warm, Dry Extremities: positive: Non-tender, Other (2+ leg edema) Neurologic/Psychiatric: positive: Oriented x3, Motor nml - LABS Result Diagrams: 04/02/23 04:46 04/02/23 04:46 - SEPSIS Current Stage of Sepsis: Ruled out - FOLLOW UP Follow Up: See PCP and/or Employee Relations Director in 1-2 wks. - TIME SPENT Time Spent in Discharge (Minutes): 45
[2023-04-03 17:54] VITALS: BP 105/60
== END 2023-04-03 18:32 | disposition home or self-care (01) | DRG 309 ==
LOC: EDUNIT# → ED 18:53 → MS3 19:53
PROVIDERS: ADMIT Internal Medicine; ATTEND Internal Medicine
DX: I48.91 Unspecified atrial fibrillation (principal); J81.0 Acute pulmonary edema; I50.30 Unspecified diastolic (congestive) heart failure; I50.9 Heart failure, unspecified; I11.0 Hypertensive heart disease with heart failure; Z20.822 Contact with and (suspected) exposure to COVID-19; D72.829 Elevated white blood cell count, unspecified; E11.65 Type 2 diabetes mellitus with hyperglycemia; Z79.01 Long term (current) use of anticoagulants; I25.2 Old myocardial infarction; E78.00 Pure hypercholesterolemia, unspecified; I25.10 Atherosclerotic heart disease of native coronary artery without angina pectoris; Z88.1 Allergy status to other antibiotic agents
CPT/HCPCS: 36415; 71045; 80048; 80053; 80061; 83036; 83540; 83735; 83880; 84100; 84443; 84466; 84484; 85025; 87633; 93005; 93306; 94640; 96365; 96375; 99291; A9270; J1815; 83721

== ENCOUNTER 2024-12-27 16:56 | Inpatient (IN) ==
[2024-12-27 17:50] LABS: BASOPHILS # (AUTO) 0.1 10^3/uL (0.0-0.1); BASOPHILS % (AUTO) 0.3 %; HCT - HEMATOCRIT 38.8 % (42.0-52.0); HGB - HEMOGLOBIN 12.5 g/dL (14.0-18.0); LYMPHOCYTES # (AUTO) 0.2 10^3/uL (1.5-3.5); MEAN CORPUSCULAR HEMOGLOBIN 29.1 pg (27.0-31.0); MEAN CORPUSCULAR HGB CONC 32.2 g/dL (32.0-36.0); MEAN CORPUSCULAR VOLUME 90.4 fL (80.0-94.0); MEAN PLATELET VOLUME 10.5 fL (7.4-11.4); MONOCYTES # (AUTO) 1.5 10^3/uL (0.0-1.0); MONOCYTES % (AUTO) 6.7 %; NEUTROPHILS # (AUTO) 19.7 10^3/uL (1.5-6.6); NEUTROPHILS % (AUTO) 91.4 %; PLT - PLATELET COUNT 210 10^3/uL (130-450); RED BLOOD COUNT 4.29 10^6/uL (4.70-6.10); RED CELL DISTRIBUTION WIDTH 14.5 % (12.0-15.0); WHITE BLOOD COUNT 21.5 x10^3/uL (4.8-10.8)
--- NOTE | 2024-12-27 17:58 | ED Physician Documentation ---
History of Present Illness Stated complaint Stated Complaint: DIZZY/WEAK Chief complaint Chief Complaint: General History obtained from History obtained from: Patient and Family History of Present Illness Pain level max: 3 Pain level now: 3 Additonal information Additional information: Patient is a 69-year-old male who presents to the emergency department stating he has felt intermittently lightheaded and weak over the past few days. He states that he fell getting out of the shower the other day but did not strike his head. He is on Xarelto. Has a hematoma to the right flank. No loss of consciousness. No seizure activity. No altered mental status. No syncope. No chest pain. No shortness of breath. No nausea or vomiting. No abdominal pain. No fevers, cough, congestion. Vicky Coma Scale Assess Eye opening: Spontaneous Verbal response: Oriented Motor response: Obeys Commands Total score: 15 Review of Systems Constitutional Denies: Fever Ears, nose, mouth, and throat Denies: Neck pain Cardiovascular Denies: chest pain Respiratory Denies: Cough Gastrointestinal Denies: Abdominal pain, Nausea or Vomiting Genitourinary Denies: Painful urination Musculoskeletal Denies: Back pain or Neck pain Integumentary/Breast Denies: Rash Meds/Allgy Home Medications Ambulatory Orders Medication Instructions Recorded Confirmed atorvastatin 10 mg tablet 40 mg ORAL DAILY 03/31/23 03/31/23 insulin glargine 100 unit/mL (3 12 unit subcut QPM 03/31/23 03/31/23 mL) subcutaneous pen (Lantus Solostar U-100 Insulin) lisinopril 5 mg tablet 5 mg PO DAILY 03/31/23 03/31/23 metformin 500 mg tablet 500 mg PO BIDWM 03/31/23 03/31/23 metoprolol tartrate 50 mg tablet 50 mg PO BID 03/31/23 03/31/23 rivaroxaban 20 mg tablet (Xarelto) 20 mg PO QPM 03/31/23 03/31/23 furosemide 40 mg tablet 40 mg PO DAILY #30 tabs 04/03/23 Allergies Allergies Allergy/AdvReac Type Severity Reaction Status Date / Time piperacillin (From Zosyn) Allergy Mild Rash Verified 12/27/24 17:20 tazobactam (From Zosyn) Allergy Mild Rash Verified 12/27/24 17:20 [facility] Active Problems All Active Problems (Updated 12/27/24 @ 19:34 by Wil Moore MD) Hypotension (Acute) Hematoma (Acute) Acute hyponatremia (Acute) Acute dehydration (Acute) Social History Social History Smoking Status: Never smoker Do you dip or chew tobacco?: No Do you vape?: No Patient requests smoking cessation consult: No Initiate information on smoking cessation: No Relationship: Spouse Level: Independent Do you feel safe in your home environment?: Yes Suffered physical, verbal, emotional, or financial abuse?: No Exam Constitutional normal general appearance and no apparent distress HENMT normocephalic, head/scalp atraumatic and TMs normal bilaterally Eyes PERRL and EOMs intact bilaterally Neck/C-Spine visual inspection normal, trachea midline, cervical spine nontender and cervical full ROM noted No tenderness to palpation or percussion. No step-off or deformity. Chest inspection of chest normal and palpation of chest normal Respiratory breath sounds equal bilaterally, normal respiratory effort and clear to auscultation bilaterally Cardiovascular normal heart rate noted and regular rhythm noted Gastrointestinal abdomen normal to inspection, abdomen soft to palpation, nontender to palpation, nontender to percussion and nondistended Genitourinary no CVA tenderness Back/Pelvis spine normal to inspection, no thoracic spine tenderness and no lumbar spine tenderness No tenderness to palpation or percussion. No step-off or deformity over the thoracolumbar spine. Right flank hematoma, large in size, approximately 10 x 20 cm Extremities normal to inspection, no tenderness, full ROM and no deformity Neurology operations leader II-XII intact and GCS 15 Psychiatry mental status grossly normal and oriented x3 Skin skin color normal Results Vitals Vitals: Vital Signs - 24 hr 12/27/24 17:15 12/27/24 17:34 12/27/24 17:49 Temperature 36.5 C 36.8 C Temperature Source Temporal Artery Scan Tympanic Pulse Rate 88 110 H 112 H Respiratory Rate 18 24 22 Blood Pressure 80/58 L 102/58 L 104/60 O2 Saturation 98 98 98 O2 Source Room air Room air Room air Pain Intensity 8 4 4 12/27/24 18:19 12/27/24 18:30 12/27/24 19:01 Temperature 36.8 C Temperature Source Tympanic Pulse Rate 100 112 H 97 Respiratory Rate 18 19 17 Blood Pressure 106/62 103/57 L 88/59 L O2 Saturation 100 99 98 O2 Source Room air Room air Room air Pain Intensity 4 8 0 Oxygen O2 Source Room air EKG (time done) 1715: EKG releavant findings:: EKG personally interpreted by author of this note. Relevant findings are: Rate: Other (111 bpm. Atrial fibrillation. Normal axis. Narrow QRS. Q waves in V1 and V2. No significant ST changes to suggest acute ischemia) Labs Labs: Laboratory Tests 12/27/24 17:28 WBC 21.5 H RBC 4.29 L Hgb 12.5 L Hct 38.8 L MCV 90.4 MCH 29.1 MCHC 32.2 RDW 14.5 Plt Count 210 MPV 10.5 Neut # (Auto) 19.7 H Lymph # (Auto) 0.2 L [place] # (Auto) 1.5 H Eos # (Auto) 0.0 Baso # (Auto) 0.1 Absolute Nucleated RBC 0.00 Band Neuts % (Manual) Not Reportable Abnorm Lymph % (Manual) Not Reportable Nucleated RBC % 0.0 Neutrophils # (Manual) Not Reportable Lymphocytes # (Manual) Not Reportable Monocytes # (Manual) Not Reportable Eosinophils # (Manual) Not Reportable Basophils # (Manual) Not Reportable Platelet Estimate NORMAL (130-450,000) Platelet Morphology 1+ LARGE PLATELETS RBC Morph Micro Appear 1+ ANISOCYTOSIS Sodium 125 L Potassium 4.4 Chloride 93 L Carbon Dioxide 19 L Anion Gap 13.0 BUN 43 H Creatinine 1.5 H Estimated GFR (MDRD) 46 L Glucose 356 H Calcium 8.5 Total Bilirubin 0.9 AST 25 ALT 21 Alkaline Phosphatase 82 Troponin I High Sens 30.2 H* Total Protein 6.4 Albumin 3.3 Globulin 3.1 Albumin/Globulin Ratio 1.1 Lipase 44 PD Medical Decision Making ED course Complexity details: reviewed results, considered differential and d/w patient ED course: 69-year-old male with hypotension upon arrival to the emergency department. Given IV fluids. Laboratory studies were drawn. He is on anticoagulants and had a fall and has been dizzy since that time, therefore head CT is performed. Also has a large right flank hematoma, abdomen pelvis CT was ordered. Laboratory testing shows an elevated white blood cell count at 21,000, hemoglobin is down to 12.5. He does have significant hyponatremia, sodium 125, likely volume depletion, does have an elevated blood glucose at 356 so actual serum sodium likely slightly higher than laboratory study shows. Patient signed out to Dr. Plascencia awaiting repeat evaluation after CT scans are performed. Repeat evaluation after IV fluids and likely recheck his sodium. This document was made in part using voice recognition software. While efforts are made to proofread this document, sound alike and grammatical errors may occur. Discharge Plan Discharge Clinical Impression: Acute dehydration, Acute hyponatremia, Hematoma Hypotension Qualifiers: Hypotension type: unspecified hypotension type Qualified Code(s): I95.9 - Hypotension, unspecified Prescriptions: No Action metformin 500 MG tablet 500 mg PO BIDWM atorvastatin 10 MG tablet 40 mg ORAL DAILY metoprolol tartrate 50 MG tablet 50 mg PO BID Patient Comments: TAKE 1 TABLET BY MOUTH TWICE DAILY lisinopril 5 MG tablet 5 mg PO DAILY insulin glargine [Lantus Solostar U-100 Insulin] 100 UNIT/ML insulin pen 12 unit subcut QPM rivaroxaban [Xarelto] 20 MG tablet 20 mg PO QPM furosemide 40 MG tablet 40 mg PO DAILY Qty: 30 0RF Print Language: Yakut Stand Alone Forms: PCP List
--- NOTE | 2024-12-27 18:04 | XRAY Report ---
PROCEDURE: XR Chest 1V INDICATIONS: Chest Pain TECHNIQUE: One view of the chest was acquired. COMPARISON: None. FINDINGS: Surgical changes and devices: None. Lungs and pleura: No pleural effusions or pneumothorax. Lungs are hypoinflated without focal consoli dation. Mediastinum: Mediastinal contours appear normal. Heart size is normal. Bones and chest wall: No suspicious bony lesions. Overlying soft tissues appear unremarkable. IMPRESSION: No acute cardiopulmonary process. Reviewed by: Marilia Montana MD on 12/27/2024 5:02 PM [facility] Approved by: Marilia Montana MD on 12/27/2024 5:02 PM [facility] Station ID: [id number]
[2024-12-27 18:06] LABS: ALBUMIN 3.3 g/dL (3.2-5.5); ALBUMIN/GLOBULIN RATIO 1.1 (1.0-2.2); BILIRUBIN,TOTAL 0.9 mg/dL (0.2-1.0); CALCIUM 8.5 mg/dL (8.5-10.3); CREATININE 1.5 mg/dL (0.6-1.3); POTASSIUM 4.4 mmol/L (3.5-4.5); TOTAL PROTEIN 6.4 g/dL (6.4-8.9)
[2024-12-27] MEDS ORDERED: iohexoL-300 100 ML VIAL ONE (18:11)
[2024-12-27 18:12] LABS: TROPONIN I HIGH SENSITIVITY 30.2 ng/L (2.3-19.7)
[2024-12-27] MEDS: SODIUM CHLORIDE 0.9% 1,000 ML IV STA ×2 (18:12→19:40)
[2024-12-27 18:21] LABS: PLATELET ESTIMATE, MANUAL NORMAL (130-450,000) (NORMAL); RBC MORPHOLOGY (MULTIPLE) 1+ ANISOCYTOSIS (NORMAL)
[2024-12-27 18:22] LABS: PLATELET MORPHOLOGY 1+ LARGE PLATELETS (NORMAL)
[2024-12-27] MEDS: iohexoL-300 100 ML VIAL IVP ONE (18:46)
--- NOTE | 2024-12-27 18:57 | CT Report ---
PROCEDURE: CT Head WO INDICATIONS: fall, on xarelto TECHNIQUE: Noncontrast 4.5 mm thick angled axial sections acquired from the foramen magnum to the vertex. For r adiation dose reduction, the following was used: automated exposure control, adjustment of mA and/or kV according to patient size. COMPARISON: None. FINDINGS: Image quality: Excellent. CSF spaces: Basal cisterns are patent. No extra-axial fluid collections. Ventricles are normal in size and shape. Brain: No midline shift. No intracranial masses or hemorrhage. Roberson-white matter interface is norm al. Skull and face: Calvarium and visualized facial bones are intact, without suspicious lesions. Sinuses: Visualized sinuses and mastoids are clear. IMPRESSION: No acute intracranial pathology. Reviewed by: Marilia Montana MD on 12/27/2024 5:55 PM [facility] Approved by: Marilia Montana MD on 12/27/2024 5:55 PM [facility] Station ID: [id number]
--- NOTE | 2024-12-27 19:01 | CT Report ---
PROCEDURE: CT Abdomen/Pelvis W INDICATIONS: R flank hematoma after fall CONTRAST: omni 300, 100 TECHNIQUE: After the administration of intravenous contrast, a CT scan of the abdomen and pelvis was performed. Images were recorded and evaluated at appropriate window settings. Reformats: coronal and sagittal. F or radiation dose reduction, the following was used: automated exposure control, adjustment of mA and /or kV according to patient size. COMPARISON: None. FINDINGS: Image quality: Diagnostic. Lower chest: Unremarkable. Liver: No solid mass. Fissures are widened and there is the suggestion of a micronodular contour. Gallbladder: Decompressed without stones. Biliary tree: No intrahepatic or extrahepatic dilation, accounting for age. Spleen: No splenomegaly. Pancreas: No pancreatic ductal dilation. Adrenals: No adrenal nodule. Kidneys and ureters: No hydronephrosis. No renal cystic lesion which requires follow up. No solid mas s. Stomach, bowel and peritoneum: No gastric or small bowel dilation. No abnormal wall thickening. No pa thologic free fluid. Lymph nodes: No central or retroperitoneal adenopathy. Vessels: No infrarenal aortic aneurysm. Patent portal vein. PELVIS Reproductive organs: Unremarkable. Bladder: No abnormal wall thickening, accounting for underdistention. Pelvic lymph nodes: No pelvic adenopathy by size criteria. Bones: No aggressive osseous abnormality. Other: Bilateral fat-containing inguinal hernias are shown. There is a subcutaneous hematoma overlyin g the right ilium which measures 2.4 x 2.7 x 7.4 cm, located within the subcutaneous fat overlying th e gluteus muscle bellies. IMPRESSION: Right flank subcutaneous hematoma. Otherwise no significant traumatic injury of the abdomen or pelvis . Reviewed by: Marilia Montana MD on 12/27/2024 6:00 PM [facility] [[email or web address]] Approved by: Marilia Montana MD on 12/27/2024 6:00 PM [facility] [[email or web address]] Station ID: [id number]
[2024-12-27 19:31] LABS: CLARITY,URINE HAZY (CLEAR); LEUKOCYTE ESTERASE, URINE NEGATIVE (NEGATIVE); NITRITE,URINE NEGATIVE (NEGATIVE)
[2024-12-27 19:32] LABS: BILIRUBIN,URINE SMALL (NEGATIVE); GLUCOSE, URINE (UA) >=1000 mg/dL (NEGATIVE); KETONES,URINE (UA) 15 mg/dL (NEGATIVE); OCCULT BLOOD,URINE TRACE-INTACT (NEGATIVE); PH,URINE 5.5 PH (5.0-7.5); PROTEIN,URINE 30 mg/dL (NEGATIVE); UROBILINOGEN,URINE 0.2 (NORMAL) E.U./dL (NORMAL)
[2024-12-27 19:33] LABS: AMORPHOUS SEDIMENT,UR Few /LPF; BACTERIA,URINE None Seen /HPF (None Seen); CASTS, URINE 11-25 Fine Granular /LPF; RBC,URINE 0-5 /HPF (0-5); SQUAMOUS EPITHELIAL CELL,UR NONE SEEN (<= Few); WBC,URINE 0-3 /HPF (0-3)
[2024-12-27 20:21] LABS: B. PARAPERTUSSIS- RESP PCR PAN NOT DETECTED; B. PERTUSSIS- RESP PCR PANEL NOT DETECTED; C. PNEUMONIAE- RESP PCR PANEL NOT DETECTED; CORONAVIRUS 229E-RESP PCR NOT DETECTED; CORONAVIRUS HKU1-RESP PCR NOT DETECTED; CORONAVIRUS NL63-RESP PCR NOT DETECTED; CORONAVIRUS OC43-RESP PCR NOT DETECTED; HUMAN METAPNEUMOVIRUS NOT DETECTED; INFLUENZA A- RESP PCR PANEL NOT DETECTED; INFLUENZA B - RESP PCR PANEL NOT DETECTED; M. PNEUMONIAE- RESP PCR PANEL NOT DETECTED; PARAINFLUENZA VIRUS 1 NOT DETECTED; PARAINFLUENZA VIRUS 2 NOT DETECTED; PARAINFLUENZA VIRUS 4 NOT DETECTED; RHINOVIRUS/ENTEROVIRUS NOT DETECTED; RSV- RESP PCR PANEL NOT DETECTED; SARS-CoV-2 -RESP PCR PANEL NOT DETECTED
--- NOTE | 2024-12-27 22:34 | ED Physician Documentation ---
ED Addendum Addendum Addendum: I received signout/turnover terms patient from Dr. Moore; please see his note for complete H&P. In brief, patient had a fall a few days ago, c/o dizziness (unclear if this preceded the fall or subsequent to it). Prescription medications include xarelto for atrial fibrillation. Per sign-out, patient has large subcutaneous hematoma on his right flank on physical exam; given this finding, and fall with DOAC, CT A/P and CTH have been done with results pending at time of signout. Other tests that have already been completed at the time of signout include CBC with significant leukocytosis (WBC 21.5), hyponatremia (sodium 125), hyperglycemia (glucose 356; patient is a diabetic). Note that the sodium correction accounting for the hyperglycemia is 129 (Ledbetter), 131 (Jalil). Also per sign- out, patient had hypotensive readings early in ED stay but, after 2 L IV normal saline, his blood pressures have been within normal range. Also pending at time of turnover of care are UA and respiratory PCR panel. Respiratory PCR panel is negative, as is the urinalysis. No concerning findings on CT A/P (right subcutaneous hematoma seen, as noted on physical exam). No concerning findings on CTH. I then evaluated the patient and discussed test results with him. He is telling me he has having significant upper back pain. After discussion of options for analgesia, he agrees with my recommendation which is 4 mg IV morphine along with 5 mg p.o. oxycodone, the goal being adequate pain relief to discharge him home. Unfortunately, on reevaluation, the patient reports minimal improvement in overall inadequate control of the analgesia with these medications. He is then given 1 mg IV Dilaudid with improvement. However, other issue is EZEKIEL throughout my shift, with rates 120s-140s, no significant improvement after 5mg IV lopressor x 2 doses. There were no beds available at [facility] throughout my shift; given inadequate control of both his back pain and his EZEKIEL, care of patient turned over to oncoming ED physician (Dr. Landa) at end of my shift Discharge Plan Discharge Patient Disposition: [facility] DC/Xfer Condition: Fair Clinical Impression: Acute dehydration, Acute hyponatremia, Hematoma, Hypotension, Atrial fibrillation with rapid ventricular response Interventions: ED Admission Assessment Last Done: 12/28/24 17:50
[2024-12-27] MEDS: MORPHINE 10 MG/ML VIAL IVP STA (23:02)
[2024-12-27] MEDS: oxyCODONE 5 MG TABLET PO STA (23:03)
[2024-12-28] MEDS: HYDROmorphone 1 MG/ML SYRINGE IVP STA (01:02)
[2024-12-28] MEDS: METOPROLOL 5 MG/5 ML VIAL IVP STA ×2 (03:34→05:12)
[2024-12-28 06:23] LABS: BASOPHILS % (AUTO) 0.3 %; HCT - HEMATOCRIT 40.9 % (42.0-52.0); HGB - HEMOGLOBIN 12.7 g/dL (14.0-18.0); LYMPHOCYTES % (AUTO) 2.1 %; MEAN CORPUSCULAR HEMOGLOBIN 29.5 pg (27.0-31.0); MEAN CORPUSCULAR HGB CONC 31.1 g/dL (32.0-36.0); MEAN CORPUSCULAR VOLUME 94.9 fL (80.0-94.0); MEAN PLATELET VOLUME 10.6 fL (7.4-11.4); MONOCYTES % (AUTO) 7.2 %; NEUTROPHILS % (AUTO) 89.9 %; PLT - PLATELET COUNT 181 10^3/uL (130-450); RED BLOOD COUNT 4.31 10^6/uL (4.70-6.10); RED CELL DISTRIBUTION WIDTH 14.6 % (12.0-15.0); WHITE BLOOD COUNT 21.2 x10^3/uL (4.8-10.8)
[2024-12-28 06:41] LABS: ABNORMAL LYMPHS % (MANUAL) 0 %; BAND NEUTROPHILS % (MANUAL) 0 %
[2024-12-28 06:50] LABS: LYMPHOCYTES # (MANUAL) 1.1 10^3/uL (1.5-3.5); LYMPHOCYTES % (MANUAL) 5 %; MONOCYTES # (MANUAL) 0.8 10^3/uL (0.0-1.0); NEUTROPHILS # (MANUAL) 19.3 10^3/uL (1.5-6.6)
[2024-12-28 06:51] LABS: DIFFERENTIAL COMMENT MANUAL DIFFERENTIAL; PLATELET ESTIMATE, MANUAL NORMAL (130-450,000) (NORMAL); PLATELET MORPHOLOGY NORMAL APPEARANCE (NORMAL); RBC MORPHOLOGY (MULTIPLE) NORMAL APPEARANCE (NORMAL); WBC MORPHOLOGY (MULTIPLE) NORMAL APPEARANCE (NORMAL)
[2024-12-28 06:55] LABS: CALCIUM 8.8 mg/dL (8.5-10.3); CREATININE 1.5 mg/dL (0.6-1.3)
[2024-12-28] MEDS: diltiaZEM INJ 5 MG/ML VIAL IVP STA ×2 (08:10→14:29)
[2024-12-28] MEDS: SODIUM CHLORIDE 0.9% 500 ML IV STA (09:37)
[2024-12-28] MEDS: DIGOXIN 500 MCG/2 ML AMP IVP STA (10:51)
--- NOTE | 2024-12-28 12:59 | ED Physician Documentation ---
ED Addendum Addendum Addendum: Glenn Ambrose is a 69-year-old male in chronic atrial fibrillation who is on Xarelto who has had a fall in his bathroom 5 days ago and has a hematoma to his right hip and flank.. He is complaining of 3 days of feeling weak and fatigued. He is found to be in atrial fibrillation with rapid ventricular response and he has a soft blood pressure. Despite this we are able to administer 2 doses of metoprolol and a single dose of diltiazem before we gave up secondary to mild hypotension. He continued to have rates in the 130 range and he is given a dose of digoxin 0.25 mg intravenously. Patient had some improvement in his rate from the 130-150 range down to the 100-130 range. We were eventually able to to place him on a diltiazem drip and titrate the drip. His rate still vary considerably but we were having occasional periods with heart rate under 100. I consulted our hospitalist for admission of the patient to the intensive care unit on diltiazem drip with heart rate negative persistent between 100-130. Discharge Plan Discharge Patient Disposition: [facility] DC/Xfer Condition: Fair Clinical Impression: Acute dehydration, Acute hyponatremia, Hematoma, Atrial fibrillation with rapid ventricular response Hypotension Qualifiers: Hypotension type: unspecified hypotension type Qualified Code(s): I95.9 - Hypotension, unspecified
[2024-12-28] MEDS: diltiaZEM INJ 125 MG in DEXTROSE 5% 100 ML IV SCH (15:38)
[2024-12-28] MEDS ORDERED: ONDANSETRON ODT 4 MG TABLET TL PRN (18:08)
[2024-12-28] MEDS ORDERED: ONDANSETRON 4 MG/2 ML VIAL IVP PRN (18:08)
[2024-12-28] MEDS ORDERED: oxyCODONE 5 MG TABLET PO PRN (18:08)
--- NOTE | 2024-12-28 18:13 | HISTORY & PHYSICAL EXAMINATION ---
Chief Complaint Chief Complaint Chief Complaint: right flank pain, weakness History of Present Illness Admitted From Admitted From:: Emergency Department History Obtained From Records Reviewed: emergency department notes 12/27/24, 12/28/24 History obtained from: patient History of Present Illness HPI Comment/Other: Patient is a 69 year old man with history of CHF, afib, diabetes type II, diabetic ulcers that is being admitted to ICU for afib with RVR. Patient states he had an episode of blurry vision and dizziness which led to him falling in the shower 5 days ago. Denies hitting his head, denies loss of consciousness. For the days following, he had a lack of appetite and did not eat anything besides grapes and felt incredibly thirsty, drinking more water than normal. After days of feeling weak and right sided flank pain from the fall, he came to ER yesterday. Patient notes having episodes of dizziness and blurry vision about once a month. In addition to right flank pain, he notes pain between his shoulder blades starting sometime after the fall, unable to specify. Patient also has a history of uncontrolled diabetes. He does not know his a1c and does not check his blood sugars. He reports diabetic foot ulcer on his right foot, for which he sees wound care in [place] once a week. He states he is able to walk around the house without a walker or cane. Completes IADLs independently. Patient reports shortness of breath with exertion, orthopnea, and worsening pedal edema over the past two years. Last echo from 2022 was borderline for CHF, but indicated enlarged atria from atrial fibrillation. Patient denies chest pain, palpitations. He states he cannot tell when he is in afib.He was found to be in afib when he came to the Er. Patient denies nausea, vomiting, current dizziness, current blurry vision, fever, cough, polyphagia, polyuria, sweating. His PCP is Dr. Garcia at the [facility]. 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 Reports family history of DMT2 in his father. Never smoker. Denies alcohol intake. Meds/Allgy Home Medications Ambulatory Orders Medication Instructions Recorded Confirmed atorvastatin 10 mg tablet 40 mg ORAL DAILY 03/31/23 03/31/23 insulin glargine 100 unit/mL (3 12 unit subcut QPM 03/31/23 03/31/23 mL) subcutaneous pen (Lantus Solostar U-100 Insulin) lisinopril 5 mg tablet 5 mg PO DAILY 03/31/23 03/31/23 metformin 500 mg tablet 500 mg PO BIDWM 03/31/23 03/31/23 metoprolol tartrate 50 mg tablet 50 mg PO BID 03/31/23 03/31/23 rivaroxaban 20 mg tablet (Xarelto) 20 mg PO QPM 03/31/23 03/31/23 furosemide 40 mg tablet 40 mg PO DAILY #30 tabs 04/03/23 Allergies Allergies Allergy/AdvReac Type Severity Reaction Status Date / Time piperacillin (From Zosyn) Allergy Mild Rash Verified 12/27/24 17:20 tazobactam (From Zosyn) Allergy Mild Rash Verified 12/27/24 17:20 [facility] Active Problems All Active Problems (Updated 12/28/24 @ 19:17 by Radha Payne MD) Back pain (Acute) Diabetic foot ulcer (Acute) Leukocytosis (Acute) Atrial fibrillation with rapid ventricular response (Acute) Hypotension (Acute) Hematoma (Acute) Acute hyponatremia (Acute) Acute dehydration (Acute) Medical History Medical History (Updated 12/28/24 @ 19:17 by Radha Payne MD) Chronic atrial fibrillation CAD (coronary artery disease) [place] in last few yrs and treated at [facility] Hyperlipidemia HTN (hypertension) Type 2 diabetes mellitus with complication, with long-term current use of insulin Diabetic ulcer of foot associated with diabetes mellitus due to underlying condition, limited to breakdown of skin Surgical History Surgical History (Updated 12/28/24 @ 18:55 by Radha aPyne MD) H/O colonoscopy with polypectomy Family History Family History (Updated 12/28/24 @ 18:56 by Radha Payne MD) Father Diabetes Mother No problems noted. Son Well adult exam Daughter Well adult exam Social History Social History Smoking Status: Never smoker Second hand tobacco smoke exposure: No Do you dip or chew tobacco?: No Do you vape?: No Patient requests smoking cessation consult: No Initiate information on smoking cessation: No Living arrangement: At home Marital Status: Living Condition: With spouse/s.o. Relationship: Level: Assisted Do you feel safe in your home environment?: Yes Suffered physical, verbal, emotional, or financial abuse?: No Substance Use: denies use POLST Patient has POLST: No POLST Status: DNR Review of Systems Constitutional Reports: Fatigue, Malaise, Weakness and Poor appetite; Denies: Fever or Diaphoresis Eyes Reports: Blurry vision Cardiovascular Reports: edema, lightheadedness, shortness of breath with exertion and shortness of breath when lying down; Denies: chest pain or palpitations Respiratory Reports: Shortness of breath, Orthopnea, SOB at rest and SOB with exertion; Denies: Cough Gastrointestinal Reports: Poor appetite and Diarrhea; Denies: Nausea, Vomiting or Constipation Genitourinary Denies: Urinary frequency Musculoskeletal Reports: Back pain (right flank pain and midline back pain) Neurological Denies: Headache Endocrine Reports: Excessive thirst and Fatigue; Denies: Excessive urination, Polyphagia or Excessive sweating Prior Level of Functionality: completely independent. [facility]. Goes to [employer] on his own. Does bath himself, Dresses himself. and feeds himself without help Exam Constitutional normal general appearance HENMT normocephalic and head/scalp atraumatic Eyes EOMs intact bilaterally and conjunctivae normal sunken eyes Neck/C-Spine visual inspection normal and trachea midline Respiratory breath sounds equal bilaterally, abnormal respiratory effort (increased respiratory effort) and clear to auscultation bilaterally Cardiovascular heart rate abnormal (tachycardic), rhythm abnormal (irregular), murmur noted (systolic) and (II/) and edema noted (2+ edema left side, 1+ edema right side) Gastrointestinal abdomen normal to inspection, abdomen soft to palpation, nontender to palpation, nondistended and normoactive bowel sounds Back/Pelvis spine normal to inspection Extremities diabetic ulcer right lateral sole of foot, about 1cm in diameter. 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 ER has had him on diltiazem drip, HR has ranged from 110-130. Patient denies chest pain or palpitations. Troponin increased from 30.2 to 41.5 in the last day. Patient is on metoprolol tartrate 59mg BID and Xarelto 20mg qd at home. Plan: Continue diltiazem drip 125mg diltiazem at 5mg/hr IV. Start digoxin .25g QID IVP. Hold home metoprolol. Eliquis 5mg BID DVT prophylaxis ordered. Telemetry monitoring. (2) Hematoma: Plan: Secondary to ground level fall, about 10 x 20cm on right flank. CT abdomen and pelvis negative for other pathology. * ordered oxycodone 5mg PRN q4 and tylenol 650mg q4 PRN. (3) Acute hyponatremia: Plan: Patient has had increased fluid intake per patient, also decreased solute intake. Potential CHF contributing. Sodium has improved from 125 to 129 in ER. Continue 40mg lasix qd. Considered increased lasix due to his pedal edema, however patient has sunken eyes and lips that indicate possible dehydration. Repeat BMP tomorrow, trend sodium. (4) CHF (congestive heart failure): Plan: * Patient reports orthopnea, SOB with exertion, pedal edema. * Pedal edema and 2/6 systolic murmur present on exam * Patient on 40mg lasix po qd, lisinopril 5mg po qd,metoprolol 50mg BID, atorvastatin 40mg qd at home * Ordered BNP, echo to evaluate heart failure * Ordered lasix 40mg IVP qd, can continue home lisinopril and atorvastatin * Considered increased lasix and fluid restriction, however patient appears dehydrated other than pedal edema Qualifiers: Heart failure chronicity: acute Heart failure type: unspecified Q ualified Code(s): I50.9 - Heart failure, unspecified (5) Uncontrolled type 2 diabetes mellitus: Plan: * Patient reports polydipsia over the last 5 days, denies polyphagia and polyuria * Patient does not monitor blood sugars or A1c * On Lantus 12 units daily and metformin 500mg BID * Hold metformin, ordered ACHS blood sugar checks, placed on Lantus 10 units daily and sliding scale insulin * Ordered a1c * Blood sugars in ER have been 356 and 223. Lactic acid 2.2. Urine glucose >1000. Anion gap of 13, CO2 decreased at 18. Ordered venous blood gas to rule out acidosis. WBC 21.2. Qualifiers: Glycemic state: with hyperglycemia Qualified Code(s): E11.65 - Type 2 diabetes mellitus with hyperglycemia (6) Leukocytosis: Plan: * WBC has been 21.5, then 21.2 in the ER. * No clear source of infection. * Potentially secondary to increased blood sugar, stress on body * Contineu to trend WBC, recheck CBC tomorrow morning (7) Diabetic foot ulcer: Plan: * Stable. Patient sees wound care once a week. No surrounding edema, erythema, or drainage. * Replace dressing daily. (8) HTN (hypertension): Plan: Takes lasix 40 mg qd and lisinopril 5mg qd at home. Holding BP meds because BP in ER has ranged from 110-130/50-85. Ordered lasix 40 mg qd IVP for edema, restart lisinopril if BP increases to 140systolic or 90 diastolic (9) Back pain: Plan: * In addition to hematoma, patient report mid scapular back pain * Most likely secondary to GLF, CT abdomen and pelvis normal, head CT normal, chest CT normal * Ordered thoracic x-ray to evaluate new mid scapular back pain * Ordered oxycodone 5mg q4 PRN and Tylenol 650mg q4 PRN Lab Results Lab results reviewed: Yes 12/28/24 06:15 12/28/24 06:15 Diagnostic Imaging Results Diagnostic Imaging Results: positive Final report reviewed EKG Results EKG Interpreted Independently: Yes Core Measures Anticipated LOS I expect patient to be DC'd or transferred within 96 hours.: Yes DVT/VTE - Prophylaxis VTE/DVT Prophylaxis med ordered at admit?: Yes
[2024-12-28] MEDS: DIGOXIN 500 MCG/2 ML AMP IVP SCH (18:27)
[2024-12-28] MEDS: FUROSEMIDE 40 MG/4 ML VIAL IVP SCH (18:33)
--- NOTE | 2024-12-28 20:40 | XRAY Report ---
PROCEDURE: XR Thoracic Spine 2V INDICATIONS: fall w t spine pain TECHNIQUE: 3 views of the thoracic spine were acquired. COMPARISON: None. FINDINGS AND IMPRESSION: Nondiagnostic radiographs due to inadequate penetration and portable technique. Bridging syndesmophytes are present, raising risk for low impact spine fractures. No traumatic sublux ation where visualized. There is possible age-indeterminate height loss within some upper thoracic vertebral bodies. Rightward spinal curvature. Consider CT or MRI if possible. Reviewed by: Roger Valdovinos MD on 12/28/2024 8:39 PM PDT Approved by: Roger Valdovinos MD on 12/28/2024 8:39 PM PDT Station ID: [id number]
[2024-12-28] MEDS: APIXABAN 5 MG TABLET PO SCH (21:08)
[2024-12-28] MEDS: INSULIN GLARGINE-YFGN 300 UNIT/3 ML PEN SUBQ SCH (21:08)
[2024-12-28] MEDS: INSULIN LISPRO 300 UNIT/3 ML PEN SUBQ SCH (21:09)
[2024-12-29] MEDS: SODIUM CHLORIDE FLUSH 0.9% 10 ML SYRINGE IVP SCH (00:18)
[2024-12-29 04:53] LABS: BASOPHILS # (AUTO) 0.1 10^3/uL (0.0-0.1); BASOPHILS % (AUTO) 0.3 %; EOSINOPHILS # (AUTO) 0.1 10^3/uL (0.0-0.7); EOSINOPHILS % (AUTO) 0.8 %; HCT - HEMATOCRIT 33.8 % (42.0-52.0); HGB - HEMOGLOBIN 11.2 g/dL (14.0-18.0); LYMPHOCYTES # (AUTO) 0.3 10^3/uL (1.5-3.5); LYMPHOCYTES % (AUTO) 1.8 %; MEAN CORPUSCULAR HEMOGLOBIN 29.8 pg (27.0-31.0); MEAN CORPUSCULAR HGB CONC 33.1 g/dL (32.0-36.0); MEAN CORPUSCULAR VOLUME 89.9 fL (80.0-94.0); MONOCYTES # (AUTO) 1.1 10^3/uL (0.0-1.0); MONOCYTES % (AUTO) 6.8 %; NEUTROPHILS # (AUTO) 13.9 10^3/uL (1.5-6.6); NEUTROPHILS % (AUTO) 88.7 %; PLT - PLATELET COUNT 167 10^3/uL (130-450); RED BLOOD COUNT 3.76 10^6/uL (4.70-6.10); RED CELL DISTRIBUTION WIDTH 14.6 % (12.0-15.0); WHITE BLOOD COUNT 15.7 x10^3/uL (4.8-10.8)
[2024-12-29 05:10] LABS: CREATININE 1.6 mg/dL (0.6-1.3); MAGNESIUM 1.9 mg/dL (1.7-2.3); PHOSPHORUS 2.7 mg/dL (2.5-5.0); POTASSIUM 3.4 mmol/L (3.5-4.5)
[2024-12-29] MEDS: FUROSEMIDE 40 MG/4 ML VIAL IVP SCH (08:22)
[2024-12-29] MEDS: POTASSIUM CHLORIDE 20 MEQ/15 ML UDC PO SCH (08:23)
[2024-12-29 09:01] LABS: VBG BASE EXCESS -8.5 mmol/L (-2 - +2); VBG PCO2 24.9 mmHg (41-51); VBG PH 7.418 (7.31-7.41); VBG PO2 164.5 mmHg (25-47)
--- NOTE | 2024-12-29 10:20 | PROVIDER PROGRESS NOTE ---
Assessment/Plan <Aviva Valerio - Last Filed: 12/29/24 12:08> Problem List (1) Atrial fibrillation with rapid ventricular response: Assessment/Plan: * Patient still in afib, HR in 90-110 range, most recent BP 132/67. * Discontinued digoxin 250mcg after 3 doses, discontinue diltiazem drip, restart home medication PO metoprolol 50 mg BID * Continue Eliquis 5mg PO BID * Troponins trending up, most recent went from 41.5 to 144 repeat EKG ordered. Potentially secondary to days spent in afib with RVR and heart failure (2) Hematoma: Assessment/Plan: * subacute, stable (3) Acute hyponatremia: Assessment/Plan: * Sodium stable, 129 yesterday, 128 today. * Continue Lasix 40mg IVP qd * Continue 1500mL fluid restriction (4) CHF (congestive heart failure): Qualifiers: Heart failure chronicity: acute Heart failure type: unspecified Q ualified Code(s): I50.9 - Heart failure, unspecified Assessment/Plan: * Patient still weak and short of breath, states that his pedal edema is at baseline, denies chest pain * BNP 310 * Echo results pending * Continue Lasix 40mg IVP qd, 1500mL fluid restriction * Troponins trending up, most recent went from 41.5 to 144 repeat EKG ordered. Potentially secondary to days spent in afib with RVR and his heart failure * Restart home metoprolol 50mg PO BID, continue home atorvastatin 40 mg qd, holding lisinopril 5mg qd, BP WNL (5) Uncontrolled type 2 diabetes mellitus: Qualifiers: Glycemic state: with hyperglycemia Qualified Code(s): E11.65 - Type 2 diabetes mellitus with hyperglycemia Assessment/Plan: * Polydipsia has resolved * A1c pending * Most recent blood glucose 289, consider adjusting insulin regimen. * Continue Lantus 10units and sliding scale insulin * Blood gas indicates patient does not have acidosis, diabetes uncontrolled * continue carb controlled diet (6) Leukocytosis: Assessment/Plan: * WBC decreased from 21.2 to 15.7 * No source of infection, CXR negative, UA negative, diabetic ulcer does not appear infected * Leukocytosis potentially secondary to uncontrolled diabetes, stress on the heart (7) Diabetic foot ulcer: Assessment/Plan: * Chronic, stable, has wound care in [place] weekly * Change dressing daily (8) HTN (hypertension): Assessment/Plan: * BP ranging from 100-138/50-90 * Holding home lisinopril 5mg * Restarting metoprolol 50 mg BID for BP and afib (9) Back pain: Assessment/Plan: * Thoracic X-ray showed: "Bridging syndesmophytes are present, raising risk for low impact spine fractures. No traumatic subluxation where visualized. There is possible age-indeterminate height loss within some upper thoracic vertebral bodies." Radiologist recommended CT or MRI for better visualization. * Consider thoracic spine CT Current Meds Current Meds: Current Medications Generic Name Dose Route Start Last Admin Trade Name Freq PRN Reason Stop Dose Admin Acetaminophen 650 mg 12/28/24 18:08 Acetaminophen 325 Mg Tablet PO Q4HR PRN Pain 1 to 4, or Fever Apixaban 5 mg 12/28/24 21:00 12/29/24 08:23 Apixaban 5 Mg Tablet PO 5 mg BID DEIDRA Administration Furosemide 40 mg 12/29/24 09:00 12/29/24 08:22 Furosemide 40 Mg/4 Ml Vial IVP 40 mg DAILY DEIDRA Administration Diltiazem HCl 125 mg/ Dextrose 125 mls @ 5 mls/hr 12/28/24 15:00 12/29/24 04:37 IV 10 mg/hr .Q25H DEIDRA 10 mls/hr Titration Protocol 5 MG/HR Insulin Glargine-yfgn 10 unit 12/28/24 21:00 12/28/24 21:08 Insulin Glargine-Yfgn 300 Unit/3 Ml Pen SUBQ 10 unit QPM DEIDRA Administration Insulin Human Lispro 1 - 9 unit 12/28/24 21:00 12/29/24 08:48 Insulin Lispro 300 Unit/3 Ml Pen SUBQ 5 unit 0800,1200,1700,2100 DEIDRA Administration Protocol Ondansetron HCl 4 mg 12/28/24 18:08 Ondansetron Odt 4 Mg Tablet TL Q6HR PRN Nausea / Vomiting Ondansetron HCl 4 mg 12/28/24 18:08 Ondansetron 4 Mg/2 Ml Vial IVP Q6HR PRN Nausea / Vomiting Oxycodone HCl 5 mg 12/28/24 18:08 Oxycodone 5 Mg Tablet PO Q4HR PRN Pain 5 to 7 Sodium Chloride 10 ml 12/29/24 01:00 12/29/24 08:23 Sodium Chloride Flush 0.9% 10 Ml Syringe IVP 10 ml 0100,0900,1700 DEIDRA Administration Sodium Chloride 10 ml 12/28/24 18:08 Sodium Chloride Flush 0.9% 10 Ml Syringe IVP PRN PRN NEEDED PER PROVIDER ORDERS Lab Result Lab results reviewed: Yes 12/29/24 04:31 12/29/24 04:31 Additional Planning Condition/Complexity: Stable <Radha L MD Elmer - Last Filed: 12/29/24 15:11> Problem List (1) Atrial fibrillation with rapid ventricular response: (2) Hematoma: (3) Acute hyponatremia: (4) CHF (congestive heart failure): (5) Uncontrolled type 2 diabetes mellitus: (6) Leukocytosis: (7) Diabetic foot ulcer: (8) HTN (hypertension): (9) Back pain: Current Meds Current Meds: Current Medications Generic Name Dose Route Start Last Admin Trade Name Freq PRN Reason Stop Dose Admin Acetaminophen 650 mg 12/28/24 18:08 Acetaminophen 325 Mg Tablet PO Q4HR PRN Pain 1 to 4, or Fever Apixaban 5 mg 12/28/24 21:00 12/29/24 08:23 Apixaban 5 Mg Tablet PO 5 mg BID DEIDRA Administration Furosemide 40 mg 12/29/24 09:00 12/29/24 08:22 Furosemide 40 Mg/4 Ml Vial IVP 40 mg DAILY DEIDRA Administration Diltiazem HCl 125 mg/ Dextrose 125 mls @ 5 mls/hr 12/28/24 15:00 12/29/24 04:37 IV 10 mg/hr .Q25H DEIDRA 10 mls/hr Titration Protocol 5 MG/HR Insulin Glargine-yfgn 10 unit 12/28/24 21:00 12/28/24 21:08 Insulin Glargine-Yfgn 300 Unit/3 Ml Pen SUBQ 10 unit QPM DEIDRA Administration Insulin Human Lispro 1 - 9 unit 12/28/24 21:00 12/29/24 08:48 Insulin Lispro 300 Unit/3 Ml Pen SUBQ 5 unit 0800,1200,1700,2100 DEIDRA Administration Protocol Ondansetron HCl 4 mg 12/28/24 18:08 Ondansetron Odt 4 Mg Tablet TL Q6HR PRN Nausea / Vomiting Ondansetron HCl 4 mg 12/28/24 18:08 Ondansetron 4 Mg/2 Ml Vial IVP Q6HR PRN Nausea / Vomiting Oxycodone HCl 5 mg 12/28/24 18:08 Oxycodone 5 Mg Tablet PO Q4HR PRN Pain 5 to 7 Sodium Chloride 10 ml 12/29/24 01:00 12/29/24 08:23 Sodium Chloride Flush 0.9% 10 Ml Syringe IVP 10 ml 0100,0900,1700 DEIDRA Administration Sodium Chloride 10 ml 12/28/24 18:08 Sodium Chloride Flush 0.9% 10 Ml Syringe IVP PRN PRN NEEDED PER PROVIDER ORDERS Subjective <Aviva Valerio - Last Filed: 12/29/24 12:08> Subjective Patient Reports: Other (Reports resolved polydipsia, still weak and SOB ) Objective <Aviva Valerio - Last Filed: 12/29/24 12:08> Vital Signs: Vital Signs - 24 hr 12/28/24 11:43 12/28/24 13:00 12/28/24 14:25 Temperature 36.9 C Temperature Source Pulse Rate 122 H 110 H 130 H Pulse Rate [Monitoring electrodes] Respiratory Rate 20 18 16 Blood Pressure 136/84 H 118/74 108/77 Blood Pressure [Left Brachial artery] O2 Saturation 97 100 98 O2 Source Room air Room air Room air Sedation scale Pain Intensity 0 0 0 Pain Intensity [Generalized] 12/28/24 15:00 12/28/24 15:44 12/28/24 16:00 Temperature Temperature Source Pulse Rate 98 100 110 H Pulse Rate [Monitoring electrodes] Respiratory Rate 20 18 Blood Pressure 119/80 136/90 H 105/59 L Blood Pressure [Left Brachial artery] O2 Saturation 97 98 O2 Source Room air Room air Sedation scale Pain Intensity Pain Intensity [Generalized] 12/28/24 16:33 12/28/24 17:00 12/28/24 17:34 Temperature Temperature Source Pulse Rate 110 H 112 H 105 H Pulse Rate [Monitoring electrodes] Respiratory Rate 16 20 Blood Pressure 105/59 L 117/66 123/58 L Blood Pressure [Left Brachial artery] O2 Saturation 99 98 O2 Source Room air Room air Sedation scale Pain Intensity 0 Pain Intensity [Generalized] 12/28/24 17:50 12/28/24 18:00 12/28/24 18:27 Temperature 36.7 C Temperature Source Oral Pulse Rate 110 H 115 H Pulse Rate [Monitoring electrodes] 118 H Respiratory Rate 20 18 Blood Pressure 125/81 Blood Pressure [Left Brachial artery] 126/60 O2 Saturation 97 99 O2 Source Room air Room air Sedation scale 0-Fully awake Pain Intensity Pain Intensity [Generalized] 12/28/24 19:00 12/28/24 20:00 12/28/24 20:00 Temperature Temperature Source Pulse Rate Pulse Rate [Monitoring electrodes] 116 H 115 H Respiratory Rate 24 29 H Blood Pressure Blood Pressure [Left Brachial artery] 129/55 L 119/63 O2 Saturation 97 98 O2 Source Room air Room air Sedation scale 0-Fully awake 0-Fully awake Pain Intensity 0 0 Pain Intensity [Generalized] 12/28/24 21:00 12/28/24 22:00 12/28/24 23:00 Temperature Temperature Source Pulse Rate Pulse Rate [Monitoring electrodes] 126 H 110 H 110 H Respiratory Rate 25 H 29 H 31 H Blood Pressure Blood Pressure [Left Brachial artery] 134/69 H 117/56 L 134/58 H O2 Saturation 97 99 95 O2 Source Room air Room air Room air Sedation scale 0-Fully awake Pain Intensity Pain Intensity [Generalized] 12/29/24 00:00 12/29/24 00:01 12/29/24 00:14 Temperature Temperature Source Pulse Rate 109 H Pulse Rate [Monitoring electrodes] 107 H Respiratory Rate 32 H Blood Pressure Blood Pressure [Left Brachial artery] 147/68 H O2 Saturation 95 O2 Source Room air Sedation scale 1-Arouses easily Pain Intensity 0 Pain Intensity [Generalized] 12/29/24 01:00 12/29/24 02:00 12/29/24 03:00 Temperature Temperature Source Pulse Rate Pulse Rate [Monitoring electrodes] 95 95 100 Respiratory Rate 31 H 33 H 29 H Blood Pressure Blood Pressure [Left Brachial artery] 124/64 126/54 L 121/50 L O2 Saturation 95 95 94 O2 Source Room air Room air Room air Sedation scale Pain Intensity Pain Intensity [Generalized] 12/29/24 04:00 12/29/24 05:00 12/29/24 06:00 Temperature Temperature Source Pulse Rate Pulse Rate [Monitoring electrodes] 83 97 99 Respiratory Rate 33 H 33 H 33 H Blood Pressure Blood Pressure [Left Brachial artery] 119/66 126/49 L 124/54 L O2 Saturation 94 95 95 O2 Source Room air Room air Room air Sedation scale Pain Intensity Pain Intensity [Generalized] 12/29/24 07:00 12/29/24 08:00 12/29/24 08:00 Temperature 36.9 C Temperature Source Oral Pulse Rate Pulse Rate [Monitoring electrodes] 99 89 Respiratory Rate 31 H 33 H Blood Pressure Blood Pressure [Left Brachial artery] 116/59 L 123/65 O2 Saturation 94 95 O2 Source Room air Room air Sedation scale 0-Fully awake Pain Intensity Pain Intensity [Generalized] 0 12/29/24 08:23 12/29/24 09:00 12/29/24 10:00 Temperature Temperature Source Pulse Rate 110 H Pulse Rate [Monitoring electrodes] 110 H 111 H Respiratory Rate 34 H 28 H Blood Pressure Blood Pressure [Left Brachial artery] 130/67 103/59 L O2 Saturation 99 99 O2 Source Room air Room air Sedation scale 0-Fully awake 0-Fully awake Pain Intensity 0 0 Pain Intensity [Generalized] Oxygen O2 Source Room air I&O (Last 24 Hrs): Intake and Output Totals x24h 12/27/24 12/29/24 12/29/24 23:59 00:59 23:59 Intake Total 1999 611 / 611 618 / 618 Output Total 450 / 450 1000 / 1000 Balance 1999 161 / 161 -382 / -382 General: Alert, Oriented x3 and Cooperative HEENT: Atraumatic Neck: Supple Neuro: Alert, CN 2-12 Grossly Intact and Oriented Times 3 Cardiovascular: Other (Irregular rhythm, tachycardia, 2/6 systolic murmur, no gallops or rubs) Respiratory: Chest non-tender and Other (shallow breathing, tachypnea, bibasilar rales) Extremities: Other (1+ edema left leg, 2+ edema right leg, overlying stasis dermatitis) Results Results: Laboratory Results WBC 15.7 x10^3/uL (4.8-10.8) H 12/29/24 04:31 RBC 3.76 10^6/uL (4.70-6.10) L 12/29/24 04:31 Hgb 11.2 g/dL (14.0-18.0) L 12/29/24 04:31 Hct 33.8 % (42.0-52.0) L 12/29/24 04:31 MCV 89.9 fL (80.0-94.0) 12/29/24 04:31 MCH 29.8 pg (27.0-31.0) 12/29/24 04:31 MCHC 33.1 g/dL (32.0-36.0) 12/29/24 04:31 RDW 14.6 % (12.0-15.0) 12/29/24 04:31 Plt Count 167 10^3/uL (130-450) 12/29/24 04:31 MPV 11.0 fL (7.4-11.4) 12/29/24 04:31 Neut # (Auto) 13.9 10^3/uL (1.5-6.6) H 12/29/24 04:31 Lymph # (Auto) 0.3 10^3/uL (1.5-3.5) L 12/29/24 04:31 [place] # (Auto) 1.1 10^3/uL (0.0-1.0) H 12/29/24 04:31 Eos # (Auto) 0.1 10^3/uL (0.0-0.7) 12/29/24 04:31 Baso # (Auto) 0.1 10^3/uL (0.0-0.1) 12/29/24 04:31 Absolute Nucleated RBC 0.00 x10^3/uL 12/29/24 04:31 Total Counted 100 12/28/24 06:15 Band Neuts % (Manual) 0 % (0-10) 12/28/24 06:15 Abnorm Lymph % (Manual) 0 % 12/28/24 06:15 Nucleated RBC % 0.0 /100WBC 12/29/24 04:31 Neutrophils # (Manual) 19.3 10^3/uL (1.5-6.6) H 12/28/24 06:15 Lymphocytes # (Manual) 1.1 10^3/uL (1.5-3.5) L 12/28/24 06:15 Monocytes # (Manual) 0.8 10^3/uL (0.0-1.0) 12/28/24 06:15 Eosinophils # (Manual) 0.0 10^3/uL (0-0.7) 12/28/24 06:15 Basophils # (Manual) 0.0 10^3/uL (0-0.1) 12/28/24 06:15 Differential Comment MANUAL DIFFERENTIAL 12/28/24 06:15 WBC Morphology NORMAL APPEARANCE (NORMAL) 12/28/24 06:15 Platelet Estimate NORMAL (130-450,000) (NORMAL) 12/28/24 06:15 Platelet Morphology NORMAL APPEARANCE (NORMAL) 12/28/24 06:15 RBC Morph Micro Appear NORMAL APPEARANCE (NORMAL) 12/28/24 06:15 VBG pH 7.418 (7.31-7.41) H 12/29/24 08:52 VBG pCO2 24.9 mmHg (41-51) L 12/29/24 08:52 VBG pO2 164.5 mmHg (25-47) H 12/29/24 08:52 VBG HCO3 16.3 mmol/L (23-28) L 12/29/24 08:52 VBG Total CO2 17.0 mmol/L (24-29) L 12/29/24 08:52 VBG O2 Saturation 100.0 % (60-80) H 12/29/24 08:52 VBG Base Excess -8.5 mmol/L (-2 - +2) L 12/29/24 08:52 Sodium 128 mmol/L (135-145) L 12/29/24 04:31 Potassium 3.4 mmol/L (3.5-4.5) L 12/29/24 04:31 Chloride 99 mmol/L (101-111) L 12/29/24 04:31 Carbon Dioxide 17 mmol/L (21-32) L 12/29/24 04:31 Anion Gap 12.0 (6-13) 12/29/24 04:31 BUN 48 mg/dL (6-20) H 12/29/24 04:31 Creatinine 1.6 mg/dL (0.6-1.3) H 12/29/24 04:31 Estimated GFR (MDRD) 43 (>89) L 12/29/24 04:31 Glucose 231 mg/dL (74-104) H 12/29/24 04:31 POC Whole Bld Glucose 241 mg/dL (70-100) 12/29/24 07:43 Lactic Acid 2.2 mmol/L (0.5-2.2) 12/28/24 06:15 Calcium 8.0 mg/dL (8.5-10.3) L 12/29/24 04:31 Phosphorus 2.7 mg/dL (2.5-5.0) 12/29/24 04:31 Magnesium 1.9 mg/dL (1.7-2.3) 12/29/24 04:31 Total Bilirubin 0.9 mg/dL (0.2-1.0) 12/27/24 17:28 AST 25 IU/L (10-42) 12/27/24 17:28 ALT 21 IU/L (10-60) 12/27/24 17:28 Alkaline Phosphatase 82 IU/L (42-121) 12/27/24 17:28 Troponin I High Sens 144.0 ng/L (2.3-19.7) H* 12/29/24 08:52 B-Natriuretic Peptide 310 pg/mL (5-100) H 12/29/24 08:52 Total Protein 6.4 g/dL (6.4-8.9) 12/27/24 17:28 Albumin 3.3 g/dL (3.2-5.5) 12/27/24 17:28 Globulin 3.1 g/dL (2.1-4.2) 12/27/24 17:28 Albumin/Globulin Ratio 1.1 (1.0-2.2) 12/27/24 17:28 Lipase 44 U/L (11-82) 12/27/24 17:28 Urine Color YELLOW 12/27/24 18:45 Urine Clarity HAZY (CLEAR) 12/27/24 18:45 Urine pH 5.5 PH (5.0-7.5) 12/27/24 18:45 Ur Specific [place] 1.010 (1.002-1.030) 12/27/24 18:45 Urine Protein 30 mg/dL (NEGATIVE) H 12/27/24 18:45 Urine Glucose (UA) >=1000 mg/dL (NEGATIVE) H 12/27/24 18:45 Urine Ketones 15 mg/dL (NEGATIVE) H 12/27/24 18:45 Urine Occult Blood TRACE-INTACT (NEGATIVE) 12/27/24 18:45 Urine Nitrite NEGATIVE (NEGATIVE) 12/27/24 18:45 Urine Bilirubin SMALL (NEGATIVE) H 12/27/24 18:45 Urine Urobilinogen 0.2 (NORMAL) E.U./dL (NORMAL) 12/27/24 18:45 Ur Leukocyte Esterase NEGATIVE (NEGATIVE) 12/27/24 18:45 Urine RBC 0-5 /HPF (0-5) 12/27/24 18:45 Urine WBC 0-3 /HPF (0-3) 12/27/24 18:45 Ur Squamous Epith Cells NONE SEEN (<= Few) 12/27/24 18:45 Amorphous Sediment Few /LPF 12/27/24 18:45 Urine Bacteria None Seen /HPF (None Seen) 12/27/24 18:45 Urine Casts 11-25 Fine Granular /LPF 12/27/24 18:45 Ur Microscopic Review INDICATED 12/27/24 18:45 Urine Culture Comments NOT INDICATED 12/27/24 18:45 Nasal Adenovirus (PCR) NOT DETECTED 12/27/24 18:44 Nasal B. parapertussis DNA (PCR) NOT DETECTED 12/27/24 18:44 Nasal Coronavir 229E PCR NOT DETECTED 12/27/24 18:44 Nasal Coronavir HKU1 PCR NOT DETECTED 12/27/24 18:44 Nasal Coronavir NL63 PCR NOT DETECTED 12/27/24 18:44 Nasal Coronavir OC43 PCR NOT DETECTED 12/27/24 18:44 Nasal Enterovir/Rhinovir PCR NOT DETECTED 12/27/24 18:44 Nasal Influenza B PCR NOT DETECTED 12/27/24 18:44 Nasal Influenza A PCR NOT DETECTED 12/27/24 18:44 Nasal Parainfluen 1 PCR NOT DETECTED 12/27/24 18:44 Nasal Parainfluen 2 PCR NOT DETECTED 12/27/24 18:44 Nasal Parainfluen 3 PCR NOT DETECTED 12/27/24 18:44 Nasal Parainfluen 4 PCR NOT DETECTED 12/27/24 18:44 Nasal RSV (PCR) NOT DETECTED 12/27/24 18:44 Nasal Screen MRSA (PCR) NEGATIVE (NEGATIVE) 12/28/24 18:10 Nasal B.pertussis DNA PCR NOT DETECTED 12/27/24 18:44 Nasal C.pneumoniae (PCR) NOT DETECTED 12/27/24 18:44 Prasanna Human Metapneumo PCR NOT DETECTED 12/27/24 18:44 Nasal M.pneumoniae (PCR) NOT DETECTED 12/27/24 18:44 Nasal SARS-CoV-2 (PCR) NOT DETECTED 12/27/24 18:44 Procedures Procedures: Procedures INSPECTION OF LOWER INTESTINAL TRACT, ENDO (10/28/16) <Radha L Payne, MD - Last Filed: 12/29/24 15:11> Vital Signs: Vital Signs - 24 hr 12/28/24 11:43 12/28/24 13:00 12/28/24 14:25 Temperature 36.9 C Temperature Source Pulse Rate 122 H 110 H 130 H Pulse Rate [Monitoring electrodes] Respiratory Rate 20 18 16 Blood Pressure 136/84 H 118/74 108/77 Blood Pressure [Left Brachial artery] O2 Saturation 97 100 98 O2 Source Room air Room air Room air Sedation scale Pain Intensity 0 0 0 Pain Intensity [Generalized] 12/28/24 15:00 12/28/24 15:44 12/28/24 16:00 Temperature Temperature Source Pulse Rate 98 100 110 H Pulse Rate [Monitoring electrodes] Respiratory Rate 20 18 Blood Pressure 119/80 136/90 H 105/59 L Blood Pressure [Left Brachial artery] O2 Saturation 97 98 O2 Source Room air Room air Sedation scale Pain Intensity Pain Intensity [Generalized] 12/28/24 16:33 12/28/24 17:00 12/28/24 17:34 Temperature Temperature Source Pulse Rate 110 H 112 H 105 H Pulse Rate [Monitoring electrodes] Respiratory Rate 16 20 Blood Pressure 105/59 L 117/66 123/58 L Blood Pressure [Left Brachial artery] O2 Saturation 99 98 O2 Source Room air Room air Sedation scale Pain Intensity 0 Pain Intensity [Generalized] 12/28/24 17:50 12/28/24 18:00 12/28/24 18:27 Temperature 36.7 C Temperature Source Oral Pulse Rate 110 H 115 H Pulse Rate [Monitoring electrodes] 118 H Respiratory Rate 20 18 Blood Pressure 125/81 Blood Pressure [Left Brachial artery] 126/60 O2 Saturation 97 99 O2 Source Room air Room air Sedation scale 0-Fully awake Pain Intensity Pain Intensity [Generalized] 12/28/24 19:00 12/28/24 20:00 12/28/24 20:00 Temperature Temperature Source Pulse Rate Pulse Rate [Monitoring electrodes] 116 H 115 H Respiratory Rate 24 29 H Blood Pressure Blood Pressure [Left Brachial artery] 129/55 L 119/63 O2 Saturation 97 98 O2 Source Room air Room air Sedation scale 0-Fully awake 0-Fully awake Pain Intensity 0 0 Pain Intensity [Generalized] 12/28/24 21:00 12/28/24 22:00 12/28/24 23:00 Temperature Temperature Source Pulse Rate Pulse Rate [Monitoring electrodes] 126 H 110 H 110 H Respiratory Rate 25 H 29 H 31 H Blood Pressure Blood Pressure [Left Brachial artery] 134/69 H 117/56 L 134/58 H O2 Saturation 97 99 95 O2 Source Room air Room air Room air Sedation scale 0-Fully awake Pain Intensity Pain Intensity [Generalized] 12/29/24 00:00 12/29/24 00:01 12/29/24 00:14 Temperature Temperature Source Pulse Rate 109 H Pulse Rate [Monitoring electrodes] 107 H Respiratory Rate 32 H Blood Pressure Blood Pressure [Left Brachial artery] 147/68 H O2 Saturation 95 O2 Source Room air Sedation scale 1-Arouses easily Pain Intensity 0 Pain Intensity [Generalized] 12/29/24 01:00 12/29/24 02:00 12/29/24 03:00 Temperature Temperature Source Pulse Rate Pulse Rate [Monitoring electrodes] 95 95 100 Respiratory Rate 31 H 33 H 29 H Blood Pressure Blood Pressure [Left Brachial artery] 124/64 126/54 L 121/50 L O2 Saturation 95 95 94 O2 Source Room air Room air Room air Sedation scale Pain Intensity Pain Intensity [Generalized] 12/29/24 04:00 12/29/24 05:00 12/29/24 06:00 Temperature Temperature Source Pulse Rate Pulse Rate [Monitoring electrodes] 83 97 99 Respiratory Rate 33 H 33 H 33 H Blood Pressure Blood Pressure [Left Brachial artery] 119/66 126/49 L 124/54 L O2 Saturation 94 95 95 O2 Source Room air Room air Room air Sedation scale Pain Intensity Pain Intensity [Generalized] 12/29/24 07:00 12/29/24 08:00 12/29/24 08:00 Temperature 36.9 C Temperature Source Oral Pulse Rate Pulse Rate [Monitoring electrodes] 99 89 Respiratory Rate 31 H 33 H Blood Pressure Blood Pressure [Left Brachial artery] 116/59 L 123/65 O2 Saturation 94 95 O2 Source Room air Room air Sedation scale 0-Fully awake Pain Intensity Pain Intensity [Generalized] 0 12/29/24 08:23 12/29/24 09:00 12/29/24 10:00 Temperature Temperature Source Pulse Rate 110 H Pulse Rate [Monitoring electrodes] 110 H 111 H Respiratory Rate 34 H 28 H Blood Pressure Blood Pressure [Left Brachial artery] 130/67 103/59 L O2 Saturation 99 99 O2 Source Room air Room air Sedation scale 0-Fully awake 0-Fully awake Pain Intensity 0 0 Pain Intensity [Generalized] Oxygen O2 Source Room air I&O (Last 24 Hrs): Intake and Output Totals x24h 12/27/24 12/29/24 12/29/24 23:59 00:59 23:59 Intake Total 1999 611 / 611 618 / 618 Output Total 450 / 450 1000 / 1000 Balance 1999 161 / 161 -382 / -382 Results Results: Laboratory Results WBC 15.7 x10^3/uL (4.8-10.8) H 12/29/24 04:31 RBC 3.76 10^6/uL (4.70-6.10) L 12/29/24 04:31 Hgb 11.2 g/dL (14.0-18.0) L 12/29/24 04:31 Hct 33.8 % (42.0-52.0) L 12/29/24 04:31 MCV 89.9 fL (80.0-94.0) 12/29/24 04:31 MCH 29.8 pg (27.0-31.0) 12/29/24 04:31 MCHC 33.1 g/dL (32.0-36.0) 12/29/24 04:31 RDW 14.6 % (12.0-15.0) 12/29/24 04:31 Plt Count 167 10^3/uL (130-450) 12/29/24 04:31 MPV 11.0 fL (7.4-11.4) 12/29/24 04:31 Neut # (Auto) 13.9 10^3/uL (1.5-6.6) H 12/29/24 04:31 Lymph # (Auto) 0.3 10^3/uL (1.5-3.5) L 12/29/24 04:31 [place] # (Auto) 1.1 10^3/uL (0.0-1.0) H 12/29/24 04:31 Eos # (Auto) 0.1 10^3/uL (0.0-0.7) 12/29/24 04:31 Baso # (Auto) 0.1 10^3/uL (0.0-0.1) 12/29/24 04:31 Absolute Nucleated RBC 0.00 x10^3/uL 12/29/24 04:31 Total Counted 100 12/28/24 06:15 Band Neuts % (Manual) 0 % (0-10) 12/28/24 06:15 Abnorm Lymph % (Manual) 0 % 12/28/24 06:15 Nucleated RBC % 0.0 /100WBC 12/29/24 04:31 Neutrophils # (Manual) 19.3 10^3/uL (1.5-6.6) H 12/28/24 06:15 Lymphocytes # (Manual) 1.1 10^3/uL (1.5-3.5) L 12/28/24 06:15 Monocytes # (Manual) 0.8 10^3/uL (0.0-1.0) 12/28/24 06:15 Eosinophils # (Manual) 0.0 10^3/uL (0-0.7) 12/28/24 06:15 Basophils # (Manual) 0.0 10^3/uL (0-0.1) 12/28/24 06:15 Differential Comment MANUAL DIFFERENTIAL 12/28/24 06:15 WBC Morphology NORMAL APPEARANCE (NORMAL) 12/28/24 06:15 Platelet Estimate NORMAL (130-450,000) (NORMAL) 12/28/24 06:15 Platelet Morphology NORMAL APPEARANCE (NORMAL) 12/28/24 06:15 RBC Morph Micro Appear NORMAL APPEARANCE (NORMAL) 12/28/24 06:15 VBG pH 7.418 (7.31-7.41) H 12/29/24 08:52 VBG pCO2 24.9 mmHg (41-51) L 12/29/24 08:52 VBG pO2 164.5 mmHg (25-47) H 12/29/24 08:52 VBG HCO3 16.3 mmol/L (23-28) L 12/29/24 08:52 VBG Total CO2 17.0 mmol/L (24-29) L 12/29/24 08:52 VBG O2 Saturation 100.0 % (60-80) H 12/29/24 08:52 VBG Base Excess -8.5 mmol/L (-2 - +2) L 12/29/24 08:52 Sodium 128 mmol/L (135-145) L 12/29/24 04:31 Potassium 3.4 mmol/L (3.5-4.5) L 12/29/24 04:31 Chloride 99 mmol/L (101-111) L 12/29/24 04:31 Carbon Dioxide 17 mmol/L (21-32) L 12/29/24 04:31 Anion Gap 12.0 (6-13) 12/29/24 04:31 BUN 48 mg/dL (6-20) H 12/29/24 04:31 Creatinine 1.6 mg/dL (0.6-1.3) H 12/29/24 04:31 Estimated GFR (MDRD) 43 (>89) L 12/29/24 04:31 Glucose 231 mg/dL (74-104) H 12/29/24 04:31 POC Whole Bld Glucose 241 mg/dL (70-100) 12/29/24 07:43 Lactic Acid 2.2 mmol/L (0.5-2.2) 12/28/24 06:15 Calcium 8.0 mg/dL (8.5-10.3) L 12/29/24 04:31 Phosphorus 2.7 mg/dL (2.5-5.0) 12/29/24 04:31 Magnesium 1.9 mg/dL (1.7-2.3) 12/29/24 04:31 Total Bilirubin 0.9 mg/dL (0.2-1.0) 12/27/24 17:28 AST 25 IU/L (10-42) 12/27/24 17:28 ALT 21 IU/L (10-60) 12/27/24 17:28 Alkaline Phosphatase 82 IU/L (42-121) 12/27/24 17:28 Troponin I High Sens 144.0 ng/L (2.3-19.7) H* 12/29/24 08:52 B-Natriuretic Peptide 310 pg/mL (5-100) H 12/29/24 08:52 Total Protein 6.4 g/dL (6.4-8.9) 12/27/24 17:28 Albumin 3.3 g/dL (3.2-5.5) 12/27/24 17:28 Globulin 3.1 g/dL (2.1-4.2) 12/27/24 17:28 Albumin/Globulin Ratio 1.1 (1.0-2.2) 12/27/24 17:28 Lipase 44 U/L (11-82) 12/27/24 17:28 Urine Color YELLOW 12/27/24 18:45 Urine Clarity HAZY (CLEAR) 12/27/24 18:45 Urine pH 5.5 PH (5.0-7.5) 12/27/24 18:45 Ur Specific [place] 1.010 (1.002-1.030) 12/27/24 18:45 Urine Protein 30 mg/dL (NEGATIVE) H 12/27/24 18:45 Urine Glucose (UA) >=1000 mg/dL (NEGATIVE) H 12/27/24 18:45 Urine Ketones 15 mg/dL (NEGATIVE) H 12/27/24 18:45 Urine Occult Blood TRACE-INTACT (NEGATIVE) 12/27/24 18:45 Urine Nitrite NEGATIVE (NEGATIVE) 12/27/24 18:45 Urine Bilirubin SMALL (NEGATIVE) H 12/27/24 18:45 Urine Urobilinogen 0.2 (NORMAL) E.U./dL (NORMAL) 12/27/24 18:45 Ur Leukocyte Esterase NEGATIVE (NEGATIVE) 12/27/24 18:45 Urine RBC 0-5 /HPF (0-5) 12/27/24 18:45 Urine WBC 0-3 /HPF (0-3) 12/27/24 18:45 Ur Squamous Epith Cells NONE SEEN (<= Few) 12/27/24 18:45 Amorphous Sediment Few /LPF 12/27/24 18:45 Urine Bacteria None Seen /HPF (None Seen) 12/27/24 18:45 Urine Casts 11-25 Fine Granular /LPF 12/27/24 18:45 Ur Microscopic Review INDICATED 12/27/24 18:45 Urine Culture Comments NOT INDICATED 12/27/24 18:45 Nasal Adenovirus (PCR) NOT DETECTED 12/27/24 18:44 Nasal B. parapertussis DNA (PCR) NOT DETECTED 12/27/24 18:44 Nasal Coronavir 229E PCR NOT DETECTED 12/27/24 18:44 Nasal Coronavir HKU1 PCR NOT DETECTED 12/27/24 18:44 Nasal Coronavir NL63 PCR NOT DETECTED 12/27/24 18:44 Nasal Coronavir OC43 PCR NOT DETECTED 12/27/24 18:44 Nasal Enterovir/Rhinovir PCR NOT DETECTED 12/27/24 18:44 Nasal Influenza B PCR NOT DETECTED 12/27/24 18:44 Nasal Influenza A PCR NOT DETECTED 12/27/24 18:44 Nasal Parainfluen 1 PCR NOT DETECTED 12/27/24 18:44 Nasal Parainfluen 2 PCR NOT DETECTED 12/27/24 18:44 Nasal Parainfluen 3 PCR NOT DETECTED 12/27/24 18:44 Nasal Parainfluen 4 PCR NOT DETECTED 12/27/24 18:44 Nasal RSV (PCR) NOT DETECTED 12/27/24 18:44 Nasal Screen MRSA (PCR) NEGATIVE (NEGATIVE) 12/28/24 18:10 Nasal B.pertussis DNA PCR NOT DETECTED 12/27/24 18:44 Nasal C.pneumoniae (PCR) NOT DETECTED 12/27/24 18:44 Prasanna Human Metapneumo PCR NOT DETECTED 12/27/24 18:44 Nasal M.pneumoniae (PCR) NOT DETECTED 12/27/24 18:44 Nasal SARS-CoV-2 (PCR) NOT DETECTED 12/27/24 18:44 Procedures Procedures: Procedures INSPECTION OF LOWER INTESTINAL TRACT, ENDO (08/18/16) Current Medications <Aviva Valerio - Last Filed: 12/29/24 12:08> Current Medications Current Medications: Current Medications Generic Name Dose Route Start Last Admin Trade Name Freq PRN Reason Stop Dose Admin Acetaminophen 650 mg 12/28/24 18:08 Acetaminophen 325 Mg Tablet PO Q4HR PRN Pain 1 to 4, or Fever Apixaban 5 mg 12/28/24 21:00 12/29/24 08:23 Apixaban 5 Mg Tablet PO 5 mg BID DEIDRA Administration Furosemide 40 mg 12/29/24 09:00 12/29/24 08:22 Furosemide 40 Mg/4 Ml Vial IVP 40 mg DAILY DEIDRA Administration Diltiazem HCl 125 mg/ Dextrose 125 mls @ 5 mls/hr 12/28/24 15:00 12/29/24 04:37 IV 10 mg/hr .Q25H DEIDRA 10 mls/hr Titration Protocol 5 MG/HR Insulin Glargine-yfgn 10 unit 12/28/24 21:00 12/28/24 21:08 Insulin Glargine-Yfgn 300 Unit/3 Ml Pen SUBQ 10 unit QPM DEIDRA Administration Insulin Human Lispro 1 - 9 unit 12/28/24 21:00 12/29/24 08:48 Insulin Lispro 300 Unit/3 Ml Pen SUBQ 5 unit 0800,1200,1700,2100 DEIDRA Administration Protocol Ondansetron HCl 4 mg 12/28/24 18:08 Ondansetron Odt 4 Mg Tablet TL Q6HR PRN Nausea / Vomiting Ondansetron HCl 4 mg 12/28/24 18:08 Ondansetron 4 Mg/2 Ml Vial IVP Q6HR PRN Nausea / Vomiting Oxycodone HCl 5 mg 12/28/24 18:08 Oxycodone 5 Mg Tablet PO Q4HR PRN Pain 5 to 7 Sodium Chloride 10 ml 12/29/24 01:00 12/29/24 08:23 Sodium Chloride Flush 0.9% 10 Ml Syringe IVP 10 ml 0100,0900,1700 DEIDRA Administration Sodium Chloride 10 ml 12/28/24 18:08 Sodium Chloride Flush 0.9% 10 Ml Syringe IVP PRN PRN NEEDED PER PROVIDER ORDERS <Radha Payne MD - Last Filed: 12/29/24 15:11> Current Medications Current Medications: Current Medications Generic Name Dose Route Start Last Admin Trade Name Freq PRN Reason Stop Dose Admin Acetaminophen 650 mg 12/28/24 18:08 Acetaminophen 325 Mg Tablet PO Q4HR PRN Pain 1 to 4, or Fever Apixaban 5 mg 12/28/24 21:00 12/29/24 08:23 Apixaban 5 Mg Tablet PO 5 mg BID DEIDRA Administration Furosemide 40 mg 12/29/24 09:00 12/29/24 08:22 Furosemide 40 Mg/4 Ml Vial IVP 40 mg DAILY DEIDRA Administration Diltiazem HCl 125 mg/ Dextrose 125 mls @ 5 mls/hr 12/28/24 15:00 12/29/24 04:37 IV 10 mg/hr .Q25H DEIDRA 10 mls/hr Titration Protocol 5 MG/HR Insulin Glargine-yfgn 10 unit 12/28/24 21:00 12/28/24 21:08 Insulin Glargine-Yfgn 300 Unit/3 Ml Pen SUBQ 10 unit QPM DEIDRA Administration Insulin Human Lispro 1 - 9 unit 12/28/24 21:00 12/29/24 08:48 Insulin Lispro 300 Unit/3 Ml Pen SUBQ 5 unit 0800,1200,1700,2100 DEIDRA Administration Protocol Ondansetron HCl 4 mg 12/28/24 18:08 Ondansetron Odt 4 Mg Tablet TL Q6HR PRN Nausea / Vomiting Ondansetron HCl 4 mg 12/28/24 18:08 Ondansetron 4 Mg/2 Ml Vial IVP Q6HR PRN Nausea / Vomiting Oxycodone HCl 5 mg 12/28/24 18:08 Oxycodone 5 Mg Tablet PO Q4HR PRN Pain 5 to 7 Sodium Chloride 10 ml 12/29/24 01:00 12/29/24 08:23 Sodium Chloride Flush 0.9% 10 Ml Syringe IVP 10 ml 0100,0900,1700 DEIDRA Administration Sodium Chloride 10 ml 12/28/24 18:08 Sodium Chloride Flush 0.9% 10 Ml Syringe IVP PRN PRN NEEDED PER PROVIDER ORDERS
[2024-12-29] MEDS: METOPROLOL TARTRATE 50 MG TABLET PO SCH (11:29)
[2024-12-29 12:06] LABS: ESTIMATED AVERAGE GLUCOSE 220 mg/dL (70-100); HEMOGLOBIN A1c% 9.3 % (4.27-6.07)
[2024-12-29] MEDS: INSULIN LISPRO 300 UNIT/3 ML PEN SUBQ SCH (12:19)
--- NOTE | 2024-12-29 14:06 | CT Report ---
PROCEDURE: CT Thoracic Spine WO INDICATIONS: fall w t spine pain and abnml plain film TECHNIQUE: Noncontrast 3 mm thick sections acquired through the region of interest in the thoracic spine. Sagit cole and coronal reformats were then constructed. For radiation dose reduction, the following was used : automated exposure control, adjustment of mA and/or kV according to patient size. COMPARISON: X-ray thoracic spine December 28, 2024, CT abdomen and pelvis December 27, 2024 FINDINGS: Image quality: Excellent. Bones: There is a moderate kyphosis present. No acute thoracic spine fractures are identified. There is no subluxation. There is an acute appearing right L2 transverse process fracture. In retrospect this may have been pr esent on previous study given the technical limitations of the previous exam. Soft tissues: No paravertebral masses or hematomas. Visualized posteromedial lungs appear clear. IMPRESSION: No acute osseous abnormalities are seen involving the thoracic spine. Findings suspicious for acute right lumbar transverse process fractures. Consider CT of the lumbar sp ine for further evaluation. Reviewed by: Jesus Levine MD on 12/29/2024 2:05 PM PDT Approved by: Jesus Levine MD on 12/29/2024 2:05 PM PDT Station ID: [id number]
--- NOTE | 2024-12-29 14:11 | PHARMACY PROGRESS NOTE ---
Best Possible Medication History Admit Date and Time: 12/28/24 1717 Home Medications Medication Instructions Recorded Confirmed Type insulin glargine 100 unit/mL (3 36 unit subcut QPM 03/31/23 12/29/24 History mL) subcutaneous pen (Lantus Solostar U-100 Insulin) lisinopril 40 mg tablet 40 mg PO DAILY 12/29/24 12/29/24 History metformin 1,000 mg tablet 1,000 mg PO BID 12/29/24 12/29/24 History metoprolol tartrate 25 mg tablet 75 mg PO BID 12/29/24 12/29/24 History Processed by: Pharmacy Medications reviewed in ED?: No Medication History completed: Yes Patient Interview: Completed Secondary Source(s): Written medication list, Pharmacy records ([facility] pharmacy states last fill of atorvastatin was over 6 months ago for a 90day supply. Xarelto, Jardiance, Amlodipine over 4.5 months ago for 90day supply. most recent lantus dosing on file of 26 units nightly) and Insurance records [facility] Statement: As the person ultimately responsible for medication therapy, providers are able to order a medication from an existing home medication list in [facility] via the "Reconcile Routine" prior to Confirmation of that medication by mining support worker. Such practice is discouraged except when the physician, in their clinical judgment, deems that a medical need exists for a medication without regard to previous use.
[2024-12-29] MEDS: METOPROLOL TARTRATE 25 MG TABLET PO SCH (21:11)
[2024-12-29] MEDS: INSULIN GLARGINE-YFGN 300 UNIT/3 ML PEN SUBQ SCH (21:12)
[2024-12-29] MEDS: SODIUM CHLORIDE FLUSH 0.9% 10 ML SYRINGE IVP PRN (21:13)
[2024-12-30 05:16] LABS: CALCIUM, IONIZED 1.19 mmol/L (1.09-1.30); VBG PH 7.489 (7.31-7.41)
[2024-12-30 05:19] LABS: BASOPHILS # (AUTO) 0.1 10^3/uL (0.0-0.1); BASOPHILS % (AUTO) 0.5 %; EOSINOPHILS # (AUTO) 0.3 10^3/uL (0.0-0.7); EOSINOPHILS % (AUTO) 1.5 %; HCT - HEMATOCRIT 38.9 % (42.0-52.0); HGB - HEMOGLOBIN 12.5 g/dL (14.0-18.0); LYMPHOCYTES # (AUTO) 0.4 10^3/uL (1.5-3.5); LYMPHOCYTES % (AUTO) 1.8 %; MEAN CORPUSCULAR HEMOGLOBIN 29.1 pg (27.0-31.0); MEAN CORPUSCULAR HGB CONC 32.1 g/dL (32.0-36.0); MEAN CORPUSCULAR VOLUME 90.7 fL (80.0-94.0); MEAN PLATELET VOLUME 11.9 fL (7.4-11.4); MONOCYTES # (AUTO) 1.4 10^3/uL (0.0-1.0); MONOCYTES % (AUTO) 7.2 %; NEUTROPHILS # (AUTO) 17.3 10^3/uL (1.5-6.6); NEUTROPHILS % (AUTO) 87.3 %; PLT - PLATELET COUNT 163 10^3/uL (130-450); RED BLOOD COUNT 4.29 10^6/uL (4.70-6.10); RED CELL DISTRIBUTION WIDTH 14.6 % (12.0-15.0); WHITE BLOOD COUNT 19.8 x10^3/uL (4.8-10.8)
[2024-12-30 05:21] LABS: CALCIUM 8.6 mg/dL (8.5-10.3); CREATININE 1.3 mg/dL (0.6-1.3); PHOSPHORUS 2.2 mg/dL (2.5-5.0); POTASSIUM 3.4 mmol/L (3.5-4.5)
[2024-12-30] MEDS: NEUTRA-PHOS 250 MG TABLET PO SCH (06:28)
[2024-12-30] MEDS: POTASSIUM CHLORIDE 20 MEQ TABLET PO SCH (08:10)
[2024-12-30] MEDS: INSULIN LISPRO 300 UNIT/3 ML PEN SUBQ SCH (08:15)
--- NOTE | 2024-12-30 09:07 | PROVIDER PROGRESS NOTE ---
Subjective Prog Note Date Prog Note Date: 12/30/24 Subjective Subjective: Glenn is a 69 year old male who has a history of hypertension, type 2 diabetes, and diastolic heart failure. During the exam he stated he was surprised to learn that it was morning. He says this is the worst that he has been since he continues to feel weak and normally is able to get up and walk to the bathroom. He says he's feeling a bit better today and denies having a racing heart, palpitations, shortness of breath, or chest pain. He thinks the swelling is better in his legs. He denied any abdominal pain but was unclear on his last bowel movement. He made no mention of back pain. Current Medications Current Medications Current Medications: Current Medications Generic Name Dose Route Start Last Admin Trade Name Freq PRN Reason Stop Dose Admin Acetaminophen 650 mg 12/28/24 18:08 Acetaminophen 325 Mg Tablet PO Q4HR PRN Pain 1 to 4, or Fever Apixaban 5 mg 12/28/24 21:00 12/30/24 08:10 Apixaban 5 Mg Tablet PO 5 mg BID DEIDRA Administration Furosemide 40 mg 12/29/24 09:00 12/30/24 08:09 Furosemide 40 Mg/4 Ml Vial IVP 40 mg DAILY DEIDRA Administration Insulin Glargine-yfgn 20 unit 12/29/24 21:00 12/29/24 21:12 Insulin Glargine-Yfgn 300 Unit/3 Ml Pen SUBQ 20 unit QPM DEIDRA Administration Insulin Human Lispro 3 - 11 unit 12/30/24 08:00 12/30/24 08:15 Insulin Lispro 300 Unit/3 Ml Pen SUBQ 7 unit 0800,1200,1700,2100 DEIDRA Administration Protocol Metoprolol Tartrate 100 mg 12/30/24 09:00 Metoprolol Tartrate 50 Mg Tablet PO BID DEIDRA Ondansetron HCl 4 mg 12/28/24 18:08 Ondansetron Odt 4 Mg Tablet TL Q6HR PRN Nausea / Vomiting Ondansetron HCl 4 mg 12/28/24 18:08 Ondansetron 4 Mg/2 Ml Vial IVP Q6HR PRN Nausea / Vomiting Oxycodone HCl 5 mg 12/28/24 18:08 Oxycodone 5 Mg Tablet PO Q4HR PRN Pain 5 to 7 Potassium Chloride 20 meq 12/30/24 08:00 12/30/24 08:10 Potassium Chloride 20 Meq Tablet PO 12/30/24 10:01 20 meq Q2H DEIDRA Administration Protocol Sodium Chloride 10 ml 12/29/24 01:00 12/30/24 08:10 Sodium Chloride Flush 0.9% 10 Ml Syringe IVP 10 ml 0100,0900,1700 DEIDRA Administration Sodium Chloride 10 ml 12/28/24 18:08 12/29/24 21:13 Sodium Chloride Flush 0.9% 10 Ml Syringe IVP 10 ml PRN PRN Administration NEEDED PER PROVIDER ORDERS Sodium Phosphate 250 mg 12/30/24 07:00 12/30/24 08:10 Neutra-Phos 250 Mg Tablet PO 12/30/24 09:01 250 mg Q2H DEIDRA Administration Protocol Objective Vital Signs/Intake & Output Reviewed Vital Signs: Yes Vital Signs: Vital Signs x48h Temp Pulse Pulse Resp BP BP Pulse Ox 12/30/24 08:09 104 H 119/69 12/30/24 07:00 101 H 22 134/69 H 96 12/30/24 06:00 103 H 32 H 128/58 L 96 12/30/24 05:00 98 28 H 125/53 L 94 12/30/24 04:00 98 30 H 141/62 H 95 12/30/24 03:00 103 H 33 H 119/64 94 12/30/24 02:00 36.9 C 96 32 H 139/68 H 95 12/30/24 01:00 105 H 32 H 144/92 H 97 Intake & Output: Intake & Output 12/27/24 12/29/24 12/29/24 12/30/24 23:59 00:59 23:59 23:59 Intake Total 1999 611 / 611 1365 / 1365 375 / 375 Output Total 450 / 450 1900 / 1900 3000 / 3000 Balance 1999 161 / 161 -535 / -535 -2625 / -2625 Weight (kg) 111.13 kg 109 kg 111 kg 105.5 kg Objective General Appearance: positive No acute distress and Alert Eyes Bilateral: positive PERRL, EOMI, No lid inflammation, Conjunctivae nml and No scleral icterus Neck: positive Trachea midline Respiratory: positive Chest non-tender and No respiratory distress Cardiovascular: positive No gallop, Irregularly irregular and Tachycardia Abdomen: positive Non-tender, Nml bowel sounds and No distention Extremities: positive Non-tender and Other (Bilateral edema with overlying stasis dermatitis. ) Neurologic/Psychiatric: positive Oriented x3, CN's nml (2-12), Motor nml and Mood/affect nml Lab Results 12/30/24 04:57 12/30/24 04:57 Other Labs: I reviewed his labs and noted the following: * WBC have increased to 19.8, prev. 15.7 * Potassium is low 3.4, unchanged. * Sodium is 137, prev. 128 * Glucose 229 prior to breakfast * BNP 530, prev. 310 Lab Results x24hrs 12/30/24 12/30/24 12/29/24 Range/Units 08:14 04:57 20:37 WBC 19.8 H (4.8-10.8) x10^3/uL RBC 4.29 L (4.70-6.10) 10^6/uL Hgb 12.5 L (14.0-18.0) g/dL Hct 38.9 L (42.0-52.0) % MCV 90.7 (80.0-94.0) fL MCH 29.1 (27.0-31.0) pg MCHC 32.1 (32.0-36.0) g/dL RDW 14.6 (12.0-15.0) % Plt Count 163 (130-450) 10^3/uL MPV 11.9 H (7.4-11.4) fL Neut # (Auto) 17.3 H (1.5-6.6) 10^3/uL Lymph # (Auto) 0.4 L (1.5-3.5) 10^3/uL Gilchrist # (Auto) 1.4 H (0.0-1.0) 10^3/uL Eos # (Auto) 0.3 (0.0-0.7) 10^3/uL Baso # (Auto) 0.1 (0.0-0.1) 10^3/uL Absolute Nucleated RBC 0.00 x10^3/uL Nucleated RBC % 0.0 /100WBC VBG pH 7.489 H (7.31-7.41) VBG pCO2 (41-51) mmHg VBG pO2 (25-47) mmHg VBG HCO3 (23-28) mmol/L VBG Total CO2 (24-29) mmol/L VBG O2 Saturation (60-80) % VBG Base Excess (-2 - +2) mmol/L Ionized Calcium 1.19 (1.09-1.30) mmol/L Sodium 137 (135-145) mmol/L Potassium 3.4 L (3.5-4.5) mmol/L Chloride 104 (101-111) mmol/L Carbon Dioxide 20 L (21-32) mmol/L Anion Gap 13.0 (6-13) BUN 40 H (6-20) mg/dL Creatinine 1.3 (0.6-1.3) mg/dL Estimated GFR (MDRD) 55 L (>89) Glucose 223 H (74-104) mg/dL POC Whole Bld Glucose 229 247 (70-100) mg/dL Estimat Average Glucose (70-100) mg/dL Hemoglobin A1c % (4.27-6.07) % Calcium 8.6 (8.5-10.3) mg/dL Phosphorus 2.2 L (2.5-5.0) mg/dL Magnesium 2.0 (1.7-2.3) mg/dL Troponin I High Sens (2.3-19.7) ng/L B-Natriuretic Peptide 530 H (5-100) pg/mL 12/29/24 12/29/24 12/29/24 Range/Units 16:48 13:02 11:50 WBC (4.8-10.8) x10^3/uL RBC (4.70-6.10) 10^6/uL Hgb (14.0-18.0) g/dL Hct (42.0-52.0) % MCV (80.0-94.0) fL MCH (27.0-31.0) pg MCHC (32.0-36.0) g/dL RDW (12.0-15.0) % Plt Count (130-450) 10^3/uL MPV (7.4-11.4) fL Neut # (Auto) (1.5-6.6) 10^3/uL Lymph # (Auto) (1.5-3.5) 10^3/uL Gilchrist # (Auto) (0.0-1.0) 10^3/uL Eos # (Auto) (0.0-0.7) 10^3/uL Baso # (Auto) (0.0-0.1) 10^3/uL Absolute Nucleated RBC x10^3/uL Nucleated RBC % /100WBC VBG pH (7.31-7.41) VBG pCO2 (41-51) mmHg VBG pO2 (25-47) mmHg VBG HCO3 (23-28) mmol/L VBG Total CO2 (24-29) mmol/L VBG O2 Saturation (60-80) % VBG Base Excess (-2 - +2) mmol/L Ionized Calcium (1.09-1.30) mmol/L Sodium (135-145) mmol/L Potassium (3.5-4.5) mmol/L Chloride (101-111) mmol/L Carbon Dioxide (21-32) mmol/L Anion Gap (6-13) BUN (6-20) mg/dL Creatinine (0.6-1.3) mg/dL Estimated GFR (MDRD) (>89) Glucose (74-104) mg/dL POC Whole Bld Glucose 245 289 (70-100) mg/dL Estimat Average Glucose (70-100) mg/dL Hemoglobin A1c % (4.27-6.07) % Calcium (8.5-10.3) mg/dL Phosphorus (2.5-5.0) mg/dL Magnesium (1.7-2.3) mg/dL Troponin I High Sens 122.0 H* (2.3-19.7) ng/L B-Natriuretic Peptide (5-100) pg/mL 12/29/24 12/29/24 Range/Units 08:52 04:31 WBC (4.8-10.8) x10^3/uL RBC (4.70-6.10) 10^6/uL Hgb (14.0-18.0) g/dL Hct (42.0-52.0) % MCV (80.0-94.0) fL MCH (27.0-31.0) pg MCHC (32.0-36.0) g/dL RDW (12.0-15.0) % Plt Count (130-450) 10^3/uL MPV (7.4-11.4) fL Neut # (Auto) (1.5-6.6) 10^3/uL Lymph # (Auto) (1.5-3.5) 10^3/uL Gilchrist # (Auto) (0.0-1.0) 10^3/uL Eos # (Auto) (0.0-0.7) 10^3/uL Baso # (Auto) (0.0-0.1) 10^3/uL Absolute Nucleated RBC x10^3/uL Nucleated RBC % /100WBC VBG pH 7.418 H (7.31-7.41) VBG pCO2 24.9 L (41-51) mmHg VBG pO2 164.5 H (25-47) mmHg VBG HCO3 16.3 L (23-28) mmol/L VBG Total CO2 17.0 L (24-29) mmol/L VBG O2 Saturation 100.0 H (60-80) % VBG Base Excess -8.5 L (-2 - +2) mmol/L Ionized Calcium (1.09-1.30) mmol/L Sodium (135-145) mmol/L Potassium (3.5-4.5) mmol/L Chloride (101-111) mmol/L Carbon Dioxide (21-32) mmol/L Anion Gap (6-13) BUN (6-20) mg/dL Creatinine (0.6-1.3) mg/dL Estimated GFR (MDRD) (>89) Glucose (74-104) mg/dL POC Whole Bld Glucose (70-100) mg/dL Estimat Average Glucose 220 H (70-100) mg/dL Hemoglobin A1c % 9.3 H (4.27-6.07) % Calcium (8.5-10.3) mg/dL Phosphorus (2.5-5.0) mg/dL Magnesium (1.7-2.3) mg/dL Troponin I High Sens 144.0 H* (2.3-19.7) ng/L B-Natriuretic Peptide 310 H (5-100) pg/mL Diagnostic Imaging Diagnostic Imaging Comments: 12/29/[address] T[address]: * No acute osseous abnormalities are seen involving the thoracic spine. * Findings suspicious for acute right lumbar transverse process fractures. Consider CT of the lumbar spine for further evaluation. 12/29/24 Echocardiogram * Left ventricular ejection fraction of 50-55% * Moderate right ventricular enlargement -- normal function * No concerning valve disease ABX Reporting Has patient been on IV antibiotics over the past 48 hours?: No Assessment/Plan Problem List (1) Atrial fibrillation with rapid ventricular response: Impression: Glenn is still in afib but his rate is more controlled. HR has been 92-105 bpm. His BP is currently well-controlled at 119/69 this AM. He denies chest pain, palpitations, dizziness, and shortness of breath which is an improvement from yesterday. * Increased metoprolol from 50mg to 100mg PO BID * Continue Eliquis 5mg PO BID * Since no longer on diltiazem drip, consider moving him out of ICU to inpatient/medsurg status. * Digoxin and Diltiazem drip have been discontinued. * Troponins levels decreased midday yesterday 12/29 from 144 to 122. * BNP has increased from 310 to 530 (2) Hematoma: Impression: Stable, unchanged. (3) Acute hyponatremia: Impression: Sodium has improved to 137, previously 128. Potassium is unchanged from yesterday at 3.4. Mild hypokalemia possibly due to fluid restriction and diuretic. Continue to monitor with repeat BMP. * Continue Lasix 40mg IVP qd * Continue 1500mL fluid restriction * Received Potassium 40 meq PO (4) CHF (congestive heart failure): Impression: He is not symptomatic this AM. He denies shortness of breath, chest pain, palpitations. LE edema is mildly improved. Urine output is good. His left ventricular ejection fraction has improved since previous echo. His heart failure is still not completely managed and I beleive he would benefit from continued diuretics and rate control management for at least another day. * Metoprolol increased to 100 mg * Continue Lasix 40mg IV daily * Echo completed 12/29 showed left ventricular ejection fraction of 50-55%. * BNP increased 530, prev. 310 Qualifiers: Heart failure chronicity: acute Heart failure type: unspecified Q ualified Code(s): I50.9 - Heart failure, unspecified (5) Uncontrolled type 2 diabetes mellitus: Impression: Fasting glucose was 223 this AM. * HgbA1c 12/29 was 9.3 * Polydipsia had resolved -- consider repeat UA for leukocytosis evaluation as well. * Continue Lispro on sliding scale. * Glargine 20 units SUBQ QPM and initiate 10 units SUBQ QAM * Continue carb controlled diet Qualifiers: Glycemic state: with hyperglycemia Qualified Code(s): E11.65 - Type 2 diabetes mellitus with hyperglycemia (6) Leukocytosis: Impression: WBC count has increased again from 15.7 to 19.8. Still support previous reasoning that some immune response may be due to uncontrolled diabetes and physical stress on the heart from Afib. * Continue to monitor labs and evaluate for possible source of infection. * Source of infection is still undetermined - CXR w, previous UA, and diabetic ulcer on foot are unremarkable for infection. * Consider repeat UA due to use of catheter. Qualifiers: Leukocytosis type: unspecified Qualified Code(s): D72.829 - Elevated white blood cell count, unspecified (7) Diabetic foot ulcer: Impression: Chronic, stable. Qualifiers: Diabetes mellitus type: type 2 Diabetic foot ulcer location: heel L aterality: unspecified laterality Non-pressure ulcer stage: unspecified non- pressure ulcer stage Qualified Code(s): E11.621 - Type 2 diabetes mellitus with foot ulcer; L97.409 - Non-pressure chronic ulcer of unspecified heel and midfoot with unspecified severity (8) HTN (hypertension): Impression: Chronic, stable. AM BP was 119/69 with HR of 104, still in Afib w/ RVR. * Continuing to diurese with Lasix 40 mg IVP daily-- mild improvement of LE edema noted on exam. * Increased metoprolol to 100 mg daily. * Continue to hold home medication, lisinopril 40mg, since BP is controlled at this time. Qualifiers: Hypertension type: unspecified Qualified Code(s): I10 - Essential (primary) hypertension (9) Back pain: Impression: CT of spine was obtained 12/29 and possible acute right lumbar transverse process fractures were noted. He is not complaining of discomfort at this time. * Placed order for lumbar CT. * Will continue to monitor his pain and evaluate for changes in bowel movement or urinary processes. * Recommend PT/OT start to initiate movement. Qualifiers: Back pain laterality: unspecified Back pain location: back pain in unspecified location Chronicity: unspecified Qualified Code(s): M54.9 - Dorsalgia, unspecified
[2024-12-30] MEDS: METOPROLOL TARTRATE 50 MG TABLET PO SCH (10:22)
[2024-12-30] MEDS: INSULIN GLARGINE-YFGN 300 UNIT/3 ML PEN SUBQ SCH (10:23)
[2024-12-30 14:08] LABS: OSMOLALITY 296 mOsmol/kg (280-301); OSMOLALITY URINE 404 mOsmol/kg (.)
--- NOTE | 2024-12-30 14:21 | CT Report ---
PROCEDURE: CT Lumbar Spine WO INDICATIONS: Pain clinical suspicion of fracture TECHNIQUE: Noncontrast 3 mm thick sections acquired from the T12 level to the sacrum. Sagittal and coronal refo rmats were constructed. For radiation dose reduction, the following was used: automated exposure co ntrol, adjustment of mA and/or kV according to patient size. COMPARISON: None. FINDINGS: Image quality: Excellent. No CT evidence of fracture or subluxation. Mild diffuse osteopenia is noted. Mild levoscoliosis of claude mbar spine some of which may be artifact from positioning. Mild calcifications of the abdominal aorta and iliac vessels without CT evidence of aneurysm. Moderate degenerative changes lower thoracic, lumbar spine with disc space narrowing, osteophytes, fa cet osseous and ligamentous hypertrophic changes most notably at L3-4, L4-5 and L5-S1 with mild centr al stenosis and suspected moderate bilateral neural foraminal narrowing at these levels. IMPRESSION: Multilevel degenerative changes as discussed above most notably L3-4, L4-5 and L5-S1. No CT evidence of fracture or subluxation. If symptoms persist or worsen, or there is high clinical suspicion of lumbar abnormality, MRI could b e performed. Reviewed by: Sam Concepcion MD on 12/30/2024 2:20 PM PDT Approved by: Sam Concepcion MD on 12/30/2024 2:20 PM PDT Station ID: [id number]
--- NOTE | 2024-12-30 15:15 | PT Plan of Care ---
PT Plan of Care Physical Therapy Plan of Care: Diagnosis Diagnosis Afib with RVR Diagnosis L2 transverse process fx Referring Provider Radha Payne Patient Status Inpatient Chief Complaint Chief Complaint Falls, pain Onset of Chief Complaint [employer] Medical History (Updated 12/30/24 @ 13:04 by Penelope Pagan MD) Chronic atrial fibrillation CAD (coronary artery disease) [place] in last few yrs and treated at [facility] Hyperlipidemia HTN (hypertension) Type 2 diabetes mellitus with complication, with long-term current use of insulin Diabetic ulcer of foot associated with diabetes mellitus due to underlying condition, limited to breakdown of skin Surgical History (Updated 12/28/24 @ 18:55 by Radha Payne MD) H/O colonoscopy with polypectomy Assessment Assessment Pt is a pleasant 69yo M referred for PT eval s/p fall at home resulting in L2 TP fx. Found to be in Afib c RVR. Cleared to participate in PT eval. Pt was reportedly indep at baseline without AD. Upon PT eval, HR 90s, on RA, agreeable to participate. Somnolent d/t recent nap rouses with mod multimodal cueing and able to transfer to EOB with modAx2 using log roll technique. Follows cueing appropriately and able to stand with FWW and modAx2. SPT c FWW and minAx2. HR increased to 144bpm during transfer so activity stopped at this time. Pt positioned for comfort in chair, HR returns to 90s at end of session. RN informed of elevated HR and will continue to monitor. Pt will benefit from skilled PT in acute setting to improve functional mobility and upright tolerance. When medically clear, PT rec dc to SNF as pt is far below indep baseline. Goals Improve bed mobility to: Minimal Assist Improve supine to sit to: Minimal Assist Improve sit to stand to: Minimal Assist Improve pivot transfer ability Minimal Assist to: Improve sit to supine to: Minimal Assist Improve gait ability to: CGA Assistive Device Used: Front Wheeled Walker PT Plan of Care Frequency 1-2x/day Duration Until goals are met Discharge Recommendations Discharge Location [facility] Other tbd Transport Needs at Discharge [facility] Other BLS d/t L2 fracture, high fall risk
[2024-12-31 05:10] LABS: BASOPHILS % (AUTO) 0.1 %; EOSINOPHILS % (AUTO) 1.6 %; HCT - HEMATOCRIT 46.5 % (42.0-52.0); HGB - HEMOGLOBIN 14.5 g/dL (14.0-18.0); MEAN CORPUSCULAR HEMOGLOBIN 29.1 pg (27.0-31.0); MEAN CORPUSCULAR HGB CONC 31.2 g/dL (32.0-36.0); MEAN CORPUSCULAR VOLUME 93.2 fL (80.0-94.0); MEAN PLATELET VOLUME 12.3 fL (7.4-11.4); MONOCYTES % (AUTO) 7.6 %; NEUTROPHILS % (AUTO) 86.9 %; PLT - PLATELET COUNT 126 10^3/uL (130-450); RED BLOOD COUNT 4.99 10^6/uL (4.70-6.10); RED CELL DISTRIBUTION WIDTH 14.8 % (12.0-15.0); WHITE BLOOD COUNT 18.3 x10^3/uL (4.8-10.8)
[2024-12-31 05:17] LABS: SLIDE REVIEW? Indicated
[2024-12-31 05:19] LABS: ABNORMAL LYMPHS % (MANUAL) 0 %
[2024-12-31 05:27] LABS: CALCIUM 9.2 mg/dL (8.5-10.3); CREATININE 1.4 mg/dL (0.6-1.3); MAGNESIUM 2.3 mg/dL (1.7-2.3); PHOSPHORUS 2.1 mg/dL (2.5-5.0); POTASSIUM 3.1 mmol/L (3.5-4.5)
[2024-12-31 05:55] LABS: BAND NEUTROPHILS % (MANUAL) 13 %; DIFFERENTIAL COMMENT MANUAL DIFFERENTIAL; LYMPHOCYTES # (MANUAL) 0.7 10^3/uL (1.5-3.5); LYMPHOCYTES % (MANUAL) 4 %; MONOCYTES # (MANUAL) 1.1 10^3/uL (0.0-1.0); NEUTROPHILS # (MANUAL) 16.5 10^3/uL (1.5-6.6); PLATELET ESTIMATE, MANUAL NORMAL (130-450,000) (NORMAL); PLATELET MORPHOLOGY NORMAL APPEARANCE (NORMAL); RBC MORPHOLOGY (MULTIPLE) NORMAL APPEARANCE (NORMAL); WBC MORPHOLOGY (MULTIPLE) NORMAL APPEARANCE (NORMAL)
[2024-12-31 08:28] LABS: BILIRUBIN,URINE NEGATIVE (NEGATIVE); GLUCOSE, URINE (UA) 100 mg/dL (NEGATIVE); KETONES,URINE (UA) 40 mg/dL (NEGATIVE); LEUKOCYTE ESTERASE, URINE NEGATIVE (NEGATIVE); NITRITE,URINE POSITIVE (NEGATIVE); OCCULT BLOOD,URINE LARGE (NEGATIVE); PH,URINE 5.5 PH (5.0-7.5); PROTEIN,URINE 100 mg/dL (NEGATIVE); UROBILINOGEN,URINE 1 (NORMAL) E.U./dL (NORMAL)
[2024-12-31 08:43] LABS: BACTERIA,URINE Few /HPF (None Seen); CLARITY,URINE CLEAR (CLEAR); RBC,URINE 0-5 /HPF (0-5); SQUAMOUS EPITHELIAL CELL,UR FEW Squamous (<= Few); WBC,URINE 0-3 /HPF (0-3)
[2024-12-31] MEDS: POTASSIUM CHLORIDE 20 MEQ TABLET PO ONE (09:16)
--- NOTE | 2024-12-31 09:46 | XRAY Report ---
PROCEDURE: XR Chest 1V INDICATIONS: RICKI TECHNIQUE: One view of the chest was acquired. COMPARISON: 12/27/2024. FINDINGS: Surgical changes and devices: None. Lungs and pleura: No pleural effusions or pneumothorax. No consolidation. Mediastinum: Mediastinal contours appear normal. Heart size is normal. Bones and chest wall: No suspicious bony lesions. Overlying soft tissues appear unremarkable. IMPRESSION: No acute cardiopulmonary process. Reviewed by: Gonzales Guerra MD on 12/31/2024 9:45 AM PDT Approved by: Gonzales Guerra MD on 12/31/2024 9:45 AM PDT Station ID: [id number]
[2024-12-31 09:50] LABS: VBG PH 7.415 (7.31-7.41)
--- NOTE | 2024-12-31 10:07 | PROVIDER PROGRESS NOTE ---
Subjective Prog Note Date Prog Note Date: 12/31/24 Prog Note Time: 10:00 Subjective Subjective: Glenn is a 69 year old male with a history of hypertension, type 2 diabetes, and diastolic heart failure. He was originally admitted 12/28/24 for acute dehydration and was found to have afib w/ RVR. Today he reports feeling fine besides his head "feels funny like it's not connecting with my [his] body". He denies any chest pain, palpitations, shortness of breath, nausea/vomiting, headache, or photophobia. He is aware of his surroundings when prompted but is confused and rambling immediately after. He was requesting to use his phone to call his son and but when provided with his phone he was unable to properly grab it or use it. He had recently woken up so we discussed him relaxing, maybe taking a nap, or watching tv. Current Medications Current Medications Current Medications: Current Medications Generic Name Dose Route Start Last Admin Trade Name Freq PRN Reason Stop Dose Admin Acetaminophen 650 mg 12/28/24 18:08 Acetaminophen 325 Mg Tablet PO Q4HR PRN Pain 1 to 4, or Fever Apixaban 5 mg 12/28/24 21:00 12/31/24 09:16 Apixaban 5 Mg Tablet PO 5 mg BID DEIDRA Administration Furosemide 40 mg 12/29/24 09:00 12/31/24 09:16 Furosemide 40 Mg/4 Ml Vial IVP 40 mg DAILY DEIDRA Administration Insulin Glargine-yfgn 20 unit 12/29/24 21:00 12/30/24 21:37 Insulin Glargine-Yfgn 300 Unit/3 Ml Pen SUBQ 20 unit QPM DEIDRA Administration Insulin Glargine-yfgn 10 unit 12/30/24 11:00 12/31/24 09:23 Insulin Glargine-Yfgn 300 Unit/3 Ml Pen SUBQ 10 unit DAILY DEIDRA Administration Insulin Human Lispro 3 - 11 unit 12/30/24 08:00 12/31/24 09:17 Insulin Lispro 300 Unit/3 Ml Pen SUBQ 9 unit 0800,1200,1700,2100 DEIDRA Administration Protocol Metoprolol Tartrate 100 mg 12/30/24 09:00 12/31/24 09:15 Metoprolol Tartrate 50 Mg Tablet PO 100 mg BID DEIDRA Administration Ondansetron HCl 4 mg 12/28/24 18:08 Ondansetron Odt 4 Mg Tablet TL Q6HR PRN Nausea / Vomiting Ondansetron HCl 4 mg 12/28/24 18:08 Ondansetron 4 Mg/2 Ml Vial IVP Q6HR PRN Nausea / Vomiting Oxycodone HCl 5 mg 12/28/24 18:08 Oxycodone 5 Mg Tablet PO Q4HR PRN Pain 5 to 7 Sodium Chloride 10 ml 12/29/24 01:00 12/31/24 09:23 Sodium Chloride Flush 0.9% 10 Ml Syringe IVP 10 ml 0100,0900,1700 DEIDRA Administration Sodium Chloride 10 ml 12/28/24 18:08 12/29/24 21:13 Sodium Chloride Flush 0.9% 10 Ml Syringe IVP 10 ml PRN PRN Administration NEEDED PER PROVIDER ORDERS Objective Vital Signs/Intake & Output Reviewed Vital Signs: Yes Vital Signs: Vital Signs x48h Temp Pulse Pulse Pulse Resp BP BP 12/31/24 09:15 135 H 143/78 H 12/31/24 08:37 36.7 C 123 H 18 143/78 H 12/31/24 04:00 112 H 32 H 125/71 Pulse Ox 12/31/24 09:15 12/31/24 08:37 98 12/31/24 04:00 97 Intake & Output: Intake & Output 12/29/24 12/29/24 12/30/24 12/31/24 00:59 23:59 23:59 23:59 Intake Total 611 / 611 1365 / 1365 1080 / 1080 180 / 180 Output Total 450 / 450 1900 / 1900 3850 / 3850 500 / 500 Balance 161 / 161 -535 / -535 -2770 / -2770 -320 / -320 Weight (kg) 109 kg 111 kg 105.5 kg 102.5 kg Objective General Appearance: positive Mild distress and Anxious Eyes Bilateral: positive Normal inspection, PERRL, EOMI, No lid inflammation, Conjunctivae nml, No scleral icterus and Other (Delayed tracking of objects. ) ENT: positive ENT inspection nml Neck: positive Nml inspection, No JVD, Trachea midline and Carotid bruit Respiratory: positive Chest non-tender, No respiratory distress and Breath sounds nml Cardiovascular: positive No murmur, No gallop, Irregularly irregular and Tachycardia Abdomen: positive Non-tender, No organomegaly, Nml bowel sounds and No distention Skin: positive Color nml, No rash, Warm, Dry and Other (Not diaphoretic. Afebrile. ) Extremities: positive Non-tender and Other (Right foot has thick calluses and onychomycosis of all toes, but no open lesion/ ulcer. Stasis dermatitis present bilaterally on LE. Edema is mild. ) Neurologic/Psychiatric: positive Oriented x3, CN's nml (2-12) and Other (Oriented to time, place, person. Motor function was rigid and uncoordinated. Bilateral resting tremor of hands. ) Lab Results 12/31/24 04:39 12/31/24 04:39 Other Labs: I reviewed his labs and noted the following: * WBC is 18.3, prev. 19.8 * Potassium is low 3.1, prev. 3.4. * Sodium is 140, prev. 137 * Glucose 280 prior to breakfast * UA * Elevated protein, glucose, ketones * Large occult blood * Few squamous cell epithelium and bacteria * Negative leukocyte esterase Lab Results x24hrs 12/31/24 12/31/24 12/31/24 Range/Units 08:15 07:49 04:39 WBC 18.3 H (4.8-10.8) x10^3/uL RBC 4.99 (4.70-6.10) 10^6/uL Hgb 14.5 (14.0-18.0) g/dL Hct 46.5 (42.0-52.0) % MCV 93.2 (80.0-94.0) fL MCH 29.1 (27.0-31.0) pg MCHC 31.2 L (32.0-36.0) g/dL RDW 14.8 (12.0-15.0) % Plt Count 126 L (130-450) 10^3/uL MPV 12.3 H (7.4-11.4) fL Neut # (Auto) Not Reportable Lymph # (Auto) Not Reportable Bennett # (Auto) Not Reportable Eos # (Auto) Not Reportable Baso # (Auto) Not Reportable Absolute Nucleated RBC Not Reportable Total Counted 100 Band Neuts % (Manual) 13 H (0 - 10) % Abnorm Lymph % (Manual) 0 % Nucleated RBC % Not Reportable Neutrophils # (Manual) 16.5 H (1.5-6.6) 10^3/uL Lymphocytes # (Manual) 0.7 L (1.5-3.5) 10^3/uL Monocytes # (Manual) 1.1 H (0.0-1.0) 10^3/uL Eosinophils # (Manual) 0.0 (0-0.7) 10^3/uL Basophils # (Manual) 0.0 (0-0.1) 10^3/uL Differential Comment MANUAL DIFFERENTIAL Manual Slide Review Indicated WBC Morphology NORMAL APPEARANCE (NORMAL) Platelet Estimate NORMAL (130-450,000) (NORMAL) Platelet Morphology NORMAL APPEARANCE (NORMAL) RBC Morph Micro Appear NORMAL APPEARANCE (NORMAL) Sodium 140 (135-145) mmol/L Potassium 3.1 L (3.5-4.5) mmol/L Chloride 103 (101-111) mmol/L Carbon Dioxide 24 (21-32) mmol/L Anion Gap 13.0 (6-13) BUN 49 H (6-20) mg/dL Creatinine 1.4 H (0.6-1.3) mg/dL Estimated GFR (MDRD) 50 L (>89) Glucose 281 H (74-104) mg/dL POC Whole Bld Glucose 280 (70-100) mg/dL Serum Osmolality (280-301) mOsmol/kg Calcium 9.2 (8.5-10.3) mg/dL Phosphorus 2.1 L (2.5-5.0) mg/dL Magnesium 2.3 (1.7-2.3) mg/dL Urine Color YELLOW Urine Clarity CLEAR (CLEAR) Urine pH 5.5 (5.0-7.5) PH Ur Specific [place] 1.015 (1.002-1.030) Urine Protein 100 H (NEGATIVE) mg/dL Urine Glucose (UA) 100 H (NEGATIVE) mg/dL Urine Ketones 40 H (NEGATIVE) mg/dL Urine Occult Blood LARGE H (NEGATIVE) Urine Nitrite POSITIVE H (NEGATIVE) Urine Bilirubin NEGATIVE (NEGATIVE) Urine Urobilinogen 1 (NORMAL) (NORMAL) E.U./dL Ur Leukocyte Esterase NEGATIVE (NEGATIVE) Urine RBC 0-5 (0-5) /HPF Urine WBC 0-3 (0-3) /HPF Ur Squamous Epith Cells FEW Squamous (<= Few) Urine Bacteria Few (None Seen) /HPF Urine Osmolality (.) mOsmol/kg 12/30/24 12/30/24 12/30/24 Range/Units 20:45 16:40 11:45 WBC (4.8-10.8) x10^3/uL RBC (4.70-6.10) 10^6/uL Hgb (14.0-18.0) g/dL Hct (42.0-52.0) % MCV (80.0-94.0) fL MCH (27.0-31.0) pg MCHC (32.0-36.0) g/dL RDW (12.0-15.0) % Plt Count (130-450) 10^3/uL MPV (7.4-11.4) fL Neut # (Auto) Lymph # (Auto) Bennett # (Auto) Eos # (Auto) Baso # (Auto) Absolute Nucleated RBC Total Counted Band Neuts % (Manual) (0 - 10) % Abnorm Lymph % (Manual) % Nucleated RBC % Neutrophils # (Manual) (1.5-6.6) 10^3/uL Lymphocytes # (Manual) (1.5-3.5) 10^3/uL Monocytes # (Manual) (0.0-1.0) 10^3/uL Eosinophils # (Manual) (0-0.7) 10^3/uL Basophils # (Manual) (0-0.1) 10^3/uL Differential Comment Manual Slide Review WBC Morphology (NORMAL) Platelet Estimate (NORMAL) Platelet Morphology (NORMAL) RBC Morph Micro Appear (NORMAL) Sodium (135-145) mmol/L Potassium (3.5-4.5) mmol/L Chloride (101-111) mmol/L Carbon Dioxide (21-32) mmol/L Anion Gap (6-13) BUN (6-20) mg/dL Creatinine (0.6-1.3) mg/dL Estimated GFR (MDRD) (>89) Glucose (74-104) mg/dL POC Whole Bld Glucose 311 261 306 (70-100) mg/dL Serum Osmolality (280-301) mOsmol/kg Calcium (8.5-10.3) mg/dL Phosphorus (2.5-5.0) mg/dL Magnesium (1.7-2.3) mg/dL Urine Color Urine Clarity (CLEAR) Urine pH (5.0-7.5) PH Ur Specific [place] (1.002-1.030) Urine Protein (NEGATIVE) mg/dL Urine Glucose (UA) (NEGATIVE) mg/dL Urine Ketones (NEGATIVE) mg/dL Urine Occult Blood (NEGATIVE) Urine Nitrite (NEGATIVE) Urine Bilirubin (NEGATIVE) Urine Urobilinogen (NORMAL) E.U./dL Ur Leukocyte Esterase (NEGATIVE) Urine RBC (0-5) /HPF Urine WBC (0-3) /HPF Ur Squamous Epith Cells (<= Few) Urine Bacteria (None Seen) /HPF Urine Osmolality (.) mOsmol/kg 12/29/24 Range/Units 12:56 WBC (4.8-10.8) x10^3/uL RBC (4.70-6.10) 10^6/uL Hgb (14.0-18.0) g/dL Hct (42.0-52.0) % MCV (80.0-94.0) fL MCH (27.0-31.0) pg MCHC (32.0-36.0) g/dL RDW (12.0-15.0) % Plt Count (130-450) 10^3/uL MPV (7.4-11.4) fL Neut # (Auto) Lymph # (Auto) Bennett # (Auto) Eos # (Auto) Baso # (Auto) Absolute Nucleated RBC Total Counted Band Neuts % (Manual) (0 - 10) % Abnorm Lymph % (Manual) % Nucleated RBC % Neutrophils # (Manual) (1.5-6.6) 10^3/uL Lymphocytes # (Manual) (1.5-3.5) 10^3/uL Monocytes # (Manual) (0.0-1.0) 10^3/uL Eosinophils # (Manual) (0-0.7) 10^3/uL Basophils # (Manual) (0-0.1) 10^3/uL Differential Comment Manual Slide Review WBC Morphology (NORMAL) Platelet Estimate (NORMAL) Platelet Morphology (NORMAL) RBC Morph Micro Appear (NORMAL) Sodium (135-145) mmol/L Potassium (3.5-4.5) mmol/L Chloride (101-111) mmol/L Carbon Dioxide (21-32) mmol/L Anion Gap (6-13) BUN (6-20) mg/dL Creatinine (0.6-1.3) mg/dL Estimated GFR (MDRD) (>89) Glucose (74-104) mg/dL POC Whole Bld Glucose (70-100) mg/dL Serum Osmolality 296 (280-301) mOsmol/kg Calcium (8.5-10.3) mg/dL Phosphorus (2.5-5.0) mg/dL Magnesium (1.7-2.3) mg/dL Urine Color Urine Clarity (CLEAR) Urine pH (5.0-7.5) PH Ur Specific [place] (1.002-1.030) Urine Protein (NEGATIVE) mg/dL Urine Glucose (UA) (NEGATIVE) mg/dL Urine Ketones (NEGATIVE) mg/dL Urine Occult Blood (NEGATIVE) Urine Nitrite (NEGATIVE) Urine Bilirubin (NEGATIVE) Urine Urobilinogen (NORMAL) E.U./dL Ur Leukocyte Esterase (NEGATIVE) Urine RBC (0-5) /HPF Urine WBC (0-3) /HPF Ur Squamous Epith Cells (<= Few) Urine Bacteria (None Seen) /HPF Urine Osmolality 404 (.) mOsmol/kg Diagnostic Imaging Diagnostic Imaging Results: positive Final report reviewed Diagnostic Imaging Comments: 12/31/24 CXR: * No acute cardiopulmonary process. 12/31/24 CT Lumbar Spine: * Mild calcifications of the abdominal aorta and iliac vessels without CT evidence of aneurysm. * Moderate degenerative changes lower thoracic, lumbar spine with disc space narrowing, osteophytes, facet osseous and ligamentous hypertrophic changes most notably at L3-4, L4-5 and L5-S1 with mild central stenosis and suspected moderate bilateral neural foraminal narrowing at these levels. ABX Reporting Has patient been on IV antibiotics over the past 48 hours?: Yes Assessment/Plan Problem List (1) Atrial fibrillation with rapid ventricular response: Impression: Glenn is still in afib. HR has been 100-150 bpm. His BP has been well- controlled 143/78 over the last 24 hours. * Continue higher dose of Metoprolol 100mg PO BID - this AM, he received first dose of higher release of this, will continue to monitor, and adjust if necessary * Continue Eliquis 5mg PO BID (2) Acute metabolic encephalopathy: Impression: The patient presented with AMS this morning so an infectious work up was completed. Urinalysis result is suggestive of a UTI and cardiopulmonary process was ruled out through CXR and symptom presentation. * Initiated Ceftriaxone 1gm IVP daily -- vitals are improving. * Order placed for CT Head. (3) CHF (congestive heart failure): Impression: Chronic, stable. * 12/31/24 CXR was negative for any acute cardiopulmonary processes. Qualifiers: Heart failure chronicity: acute Heart failure type: unspecified Q ualified Code(s): I50.9 - Heart failure, unspecified (4) Uncontrolled type 2 diabetes mellitus: Impression: Fasting glucose was 280 this AM so 9 units of Lispro was given and scheduled 10 units of glargine. Diabetes is still uncontrolled at this time. * HgbA1c 12/29 was 9.3 * Continue Lispro on sliding scale. * Glargine 20 units SUBQ QPM and initiate 10 units SUBQ QAM * Continue carb controlled diet * Continue POC glucose testing. Qualifiers: Glycemic state: with hyperglycemia Qualified Code(s): E11.65 - Type 2 diabetes mellitus with hyperglycemia (5) Leukocytosis: Impression: WBC is still elevated and his urinalysis came back with nitrites +, bacteria, LE +. With the change in his mental status and these labs, we are treating him for a UTI. A CXR was also obtained to rule out any acute cardiopulmonary changes but since he is not exhibiting any signs or symptoms of a respiratory or cardiac infection, this can be ruled out at this time. His venous stasis appears chronic and not acutely infected. * Initiate Ceftriaxone 1gm IVP daily * Continue to trend leukocytosis * Continue to monitor his presenting signs and repeat labs over the next day to assess for improvement. Qualifiers: Leukocytosis type: unspecified Qualified Code(s): D72.829 - Elevated white blood cell count, unspecified (6) Diabetic foot ulcer: Impression: On exam, no open lesions were noted on either foot. He has thick calluses on pressure points of his right foot and onychomycosis bilaterally. * Continue to monitor with exams. * Continue to adjust insulin dosages to optimize glycemic control. Qualifiers: Diabetes mellitus type: type 2 Diabetic foot ulcer location: heel L aterality: unspecified laterality Non-pressure ulcer stage: unspecified non- pressure ulcer stage Qualified Code(s): E11.621 - Type 2 diabetes mellitus with foot ulcer; L97.409 - Non-pressure chronic ulcer of unspecified heel and midfoot with unspecified severity (7) Acute hyponatremia: Impression: Sodium is within normal limits at 140, previously 137. Potassium is still low at 3.1, previously 3.4. Mild hypokalemia possibly due to fluid restriction and diuretic. Continue to monitor with repeat BMP. * Continue Lasix 40mg IVP qd * Continue 1500mL fluid restriction (8) HTN (hypertension): Impression: He has been hypertensive on and off over the last day, max was 161/89 and is currently 143/78 with HR of 136 bpm. This may be in response to his UTI or due to his elevated HR and afib. Will continue to monitor and adjust his medications as necessary. He is not exhibiting any concerning symptoms at this time. * Continue metoprolol 100 mg PO BID * Consider adding antihypertensive if improvement is not seen -- previous home medication was lisinopril 40mg * Continuing to diurese with Lasix 40 mg IVP daily-- continued improvement of LE edema noted on exam. Qualifiers: Hypertension type: unspecified Qualified Code(s): I10 - Essential (primary) hypertension (9) Hematoma: Impression: Stable, no concern at this time. (10) Back pain: Impression: 12/31/[address]: multilevel degenerative changes most notably L3-4, L4- 5, L5-S1. (detailed result above in diagnostic section) He denies any pain at this time. Will continue to monitor and increase movement as he improves. * If symptoms worsen, consider MRI. * Continue PT/OT evaluation and management. Qualifiers: Back pain laterality: unspecified Back pain location: back pain in unspecified location Chronicity: unspecified Qualified Code(s): M54.9 - Dorsalgia, unspecified
[2024-12-31] MEDS: cefTRIAXone 1 GM VIAL IVP SCH (11:47)
[2024-12-31] MEDS: INSULIN LISPRO 300 UNIT/3 ML PEN SUBQ SCH (12:12)
[2024-12-31] MEDS ORDERED: METOPROLOL 5 MG/5 ML VIAL IVP PRN (19:28)
--- NOTE | 2025-01-01 01:33 | PROVIDER PROGRESS NOTE ---
Torpedo Worker Note Torpedo Worker Note Torpedo Worker Note: notified by nurse of the following: " recent transfer from ICU to med/surg s/p GLF, Afib/RVR. per report from PM shift RN, patient declining: ie: no PO intake, lethargy, does not follow commands. RR is currently shallow at 43/min. HR 100, b/p 100/50's. wanted to keep you apprised as his breathing has changed; slight agonal breathing. skin is warm to touch, diaphoretic. temp 36.5 on 2lpm via NC. FYI" Will check poc glucose and abg. Avoid additional sedative medications
[2025-01-01 01:53] LABS: ABG HCO3 22.4 mmol/L (22.0-26.0); ABG OXYGEN SATURATION 96 % (95-98); ABG PCO2 25 mmHg (34-45); ABG PH 7.56 (7.35-7.45); ABG PO2 78 mmHg (83-108); ABG TCO2 23.2 mmol/L (21.0-29.0); ALLEN TEST POSITIVE
[2025-01-01 04:50] LABS: BASOPHILS % (AUTO) 0.7 %; EOSINOPHILS % (AUTO) 0.2 %; HCT - HEMATOCRIT 42.8 % (42.0-52.0); HGB - HEMOGLOBIN 13.7 g/dL (14.0-18.0); LYMPHOCYTES % (AUTO) 2.9 %; MEAN CORPUSCULAR HEMOGLOBIN 29.2 pg (27.0-31.0); MEAN CORPUSCULAR VOLUME 91.3 fL (80.0-94.0); MEAN PLATELET VOLUME 12.6 fL (7.4-11.4); MONOCYTES % (AUTO) 7.4 %; NEUTROPHILS % (AUTO) 86.4 %; PLT - PLATELET COUNT 134 10^3/uL (130-450); RED BLOOD COUNT 4.69 10^6/uL (4.70-6.10); RED CELL DISTRIBUTION WIDTH 15.1 % (12.0-15.0); WHITE BLOOD COUNT 20.4 x10^3/uL (4.8-10.8)
[2025-01-01 04:53] LABS: ABNORMAL LYMPHS % (MANUAL) 0 %; LYMPHOCYTES % (MANUAL) 0 %
[2025-01-01 05:04] LABS: CALCIUM 8.9 mg/dL (8.5-10.3); CREATININE 2.4 mg/dL (0.6-1.3); MAGNESIUM 2.3 mg/dL (1.7-2.3); POTASSIUM 3.9 mmol/L (3.5-4.5)
[2025-01-01 05:21] LABS: BAND NEUTROPHILS % (MANUAL) 11 %; MONOCYTES # (MANUAL) 1.4 10^3/uL (0.0-1.0)
[2025-01-01 05:22] LABS: DIFFERENTIAL COMMENT MANUAL DIFFERENTIAL; PLATELET ESTIMATE, MANUAL NORMAL (130-450,000) (NORMAL); PLATELET MORPHOLOGY NORMAL APPEARANCE (NORMAL); RBC MORPHOLOGY (MULTIPLE) NORMAL APPEARANCE (NORMAL); WBC MORPHOLOGY (MULTIPLE) 1+ TOXIC GRANULATION (NORMAL)
--- NOTE | 2025-01-01 08:01 | PHARMACY PROGRESS NOTE ---
Vancomycin Therapy Monitoring Patient Information Vancomycin Pt Height (inches): 71 Vancomycin Patient Weight (kg): 99 Vanco Rx Serum Creatinine (mg/dL): 2.4 Vancomycin Therapy BUN (mg/dL): 78 Vancomycin Therapy Calculated Creatinine Cl (ml/min): 40 Concurrent Antibiotics: CEFEPIME 2G Q12H Vancomycin Therapy Goals Treatment Indication: SEPSIS Vancomycin Target Range: Vancomycin AUC Target Range 400-600 mcg*h/ml Assessment of Current Therapy Vancomycin Loading Dose (GM, if applicable): 2G Current Vancomycin Maintenance Regimen (if applicable): 1G Q48H Vancomycin Current Regimen: Subtherapeutic Levels Estimated Cmax (Peak, mcg/ml): 20.5 Estimated Cmin (Trough, mcg/ml): 14.1 Estimated AUC (mcg*hr/ml): 411 Plan: Pharmacy recommendation: Continue current regimen Vancomycin Level Recommendation: Obtain Random Level (OBTAIN LEVEL ONCE STEADY STATE IS REACHED ) Areas for additonal monitoring Areas for additional monitoring: Therapy de-escalation based on culture results and Acute Kidney Injury
[2025-01-01] MEDS: CEFEPIME 2 GM VIAL IVP SCH (08:55)
[2025-01-01] MEDS: VANCOMYCIN INJ 2 GM in SODIUM CHLORIDE 0.9% 500 ML IV ONE (09:25)
--- NOTE | 2025-01-01 09:51 | CT Report ---
PROCEDURE: CT Head WO INDICATIONS: AMS TECHNIQUE: Noncontrast 4.5 mm thick angled axial sections acquired from the foramen magnum to the vertex. For r adiation dose reduction, the following was used: automated exposure control, adjustment of mA and/or kV according to patient size. COMPARISON: 12/27/2024. FINDINGS: Image quality: Excellent. CSF spaces: Basal cisterns are patent. No extra-axial fluid collections. Ventricles are normal in size and shape. Brain: Area of loss of roberson-white differentiation in the right frontoparietal region (2). No midl ine shift. No intracranial masses or hemorrhage. Roberson-white matter interface is normal. Mild age-re lated global volume loss and chronic microvascular ischemic changes. Intracranial atherosclerotic vas cular calcifications. Skull and face: Calvarium and visualized facial bones are intact, without suspicious lesions. Sinuses: Visualized sinuses and mastoids are clear. IMPRESSION: Area of loss of roberson-white differentiation in the right frontoparietal region concerning for subacute infarct. Recommend MRI for further evaluation. Reviewed by: Vik Gandhi MD on 01/01/2025 9:50 AM PDT Approved by: Vik Gandhi MD on 01/01/2025 9:50 AM PDT Station ID: [id number]
--- NOTE | 2025-01-01 12:33 | PROVIDER PROGRESS NOTE ---
Subjective Prog Note Date Prog Note Date: 01/01/25 Subjective Subjective: Glenn appears to have worsened overnight. He says it's hard for him to talk and his speech was very slurred, labored, and delayed in response time. When asked he remembered his wifes name and his full name but was unclear on his location. He was a poor historian regarding how he was feeling aside from this. Current Medications Current Medications Current Medications: Current Medications Generic Name Dose Route Start Last Admin Trade Name Freq PRN Reason Stop Dose Admin Acetaminophen 650 mg 12/28/24 18:08 Acetaminophen 325 Mg Tablet PO Q4HR PRN Pain 1 to 4, or Fever Apixaban 5 mg 12/28/24 21:00 01/01/25 09:14 Apixaban 5 Mg Tablet PO 5 mg BID DEIDRA Administration Cefepime HCl 2 gm 01/01/25 08:00 01/01/25 08:55 Cefepime 2 Gm Vial IVP 2 gm Q12H DEIDRA Administration Furosemide 40 mg 12/29/24 09:00 01/01/25 09:12 Furosemide 40 Mg/4 Ml Vial IVP Not Given DAILY DEIDRA Vancomycin HCl 1 gm/ Sodium 250 mls @ 167 mls/hr 01/03/25 09:00 Chloride IV Q48H DEIDRA Insulin Glargine-yfgn 20 unit 12/29/24 21:00 12/31/24 21:02 Insulin Glargine-Yfgn 300 Unit/3 Ml Pen SUBQ 20 unit QPM DEIDRA Administration Insulin Glargine-yfgn 10 unit 12/30/24 11:00 01/01/25 08:57 Insulin Glargine-Yfgn 300 Unit/3 Ml Pen SUBQ 10 unit DAILY DEIDRA Administration Insulin Human Lispro 3 - 11 unit 12/30/24 08:00 01/01/25 08:56 Insulin Lispro 300 Unit/3 Ml Pen SUBQ 9 unit 0800,1200,1700,2100 DEIDRA Administration Protocol Insulin Human Lispro 7 unit 12/31/24 12:00 01/01/25 08:58 Insulin Lispro 300 Unit/3 Ml Pen SUBQ 7 unit TIDWM DEIDRA Administration Metoprolol Tartrate 100 mg 12/30/24 09:00 01/01/25 09:17 Metoprolol Tartrate 50 Mg Tablet PO Not Given BID DEIDRA Metoprolol Tartrate 5 mg 12/31/24 19:28 Metoprolol 5 Mg/5 Ml Vial IVP Q6H PRN PER PHYSICIAN ORDER Ondansetron HCl 4 mg 12/28/24 18:08 Ondansetron Odt 4 Mg Tablet TL Q6HR PRN Nausea / Vomiting Ondansetron HCl 4 mg 12/28/24 18:08 Ondansetron 4 Mg/2 Ml Vial IVP Q6HR PRN Nausea / Vomiting Sodium Chloride 10 ml 12/29/24 01:00 01/01/25 09:14 Sodium Chloride Flush 0.9% 10 Ml Syringe IVP 10 ml 0100,0900,1700 DEIDRA Administration Sodium Chloride 10 ml 12/28/24 18:08 12/29/24 21:13 Sodium Chloride Flush 0.9% 10 Ml Syringe IVP 10 ml PRN PRN Administration NEEDED PER PROVIDER ORDERS Objective Vital Signs/Intake & Output Reviewed Vital Signs: Yes Vital Signs: Vital Signs x48h Temp Pulse Pulse Resp BP BP Pulse Ox 01/01/25 09:17 99/56 L 01/01/25 08:20 36.9 C 106 H 40 H 84/50 L 98 01/01/25 05:00 36.5 C 86 40 H 112/61 94 O2 Flow Rate 01/01/25 09:17 01/01/25 08:20 3 01/01/25 05:00 2 Intake & Output: Intake & Output 12/29/24 12/30/24 12/31/24 01/01/25 23:59 23:59 23:59 23:59 Intake Total 1365 / 1365 1080 / 1080 430 / 430 0 / 0 Output Total 1900 / 1900 3850 / 3850 550 / 550 0 / 0 Balance -535 / -535 -2770 / -2770 -120 / -120 0 / 0 Weight (kg) 111 kg 105.5 kg 102.5 kg 99 kg Objective General Appearance: positive Moderate distress, Lethargic and Other (Unsettled and confused. ) Eyes Bilateral: positive No lid inflammation, Conjunctivae nml, No scleral icterus and Other (Delayed tracking of objects. ) ENT: positive ENT inspection nml Neck: positive Nml inspection, No JVD and Trachea midline Respiratory: positive Chest non-tender, Breath sounds nml and Other (Tachypnic. ) Cardiovascular: positive No murmur, No gallop, Irregularly irregular and Tachycardia Abdomen: positive Non-tender, No organomegaly, Nml bowel sounds and No distention Skin: positive Color nml, No rash, Warm, Dry and Other (Not diaphoretic. Afebrile. ) Extremities: positive Non-tender and Other (Right foot has thick calluses and onychomycosis of all toes, but no open lesion/ ulcer. Stasis dermatitis present bilaterally on LE. Edema is mild. ) Neurologic/Psychiatric: positive Oriented x3, CN's nml (2-12) and Other (Oriented to time, place, person. Motor function was rigid and uncoordinated. Bilateral resting tremor of hands. Left sided neglect noted. still 5/5 strength in all extremities, no facial droop noted; dysarthria noted) Lab Results 01/01/25 04:29 01/01/25 04:29 Other Labs: Lab Results x24hrs 01/01/25 01/01/25 01/01/25 Range/Units 11:56 07:49 04:46 WBC (4.8-10.8) x10^3/uL RBC (4.70-6.10) 10^6/uL Hgb (14.0-18.0) g/dL Hct (42.0-52.0) % MCV (80.0-94.0) fL MCH (27.0-31.0) pg MCHC (32.0-36.0) g/dL RDW (12.0-15.0) % Plt Count (130-450) 10^3/uL MPV (7.4-11.4) fL Neut # (Auto) Lymph # (Auto) Benson # (Auto) Eos # (Auto) Baso # (Auto) Absolute Nucleated RBC Total Counted Band Neuts % (Manual) (0 - 10) % Abnorm Lymph % (Manual) % Nucleated RBC % Neutrophils # (Manual) (1.5-6.6) 10^3/uL Lymphocytes # (Manual) (1.5-3.5) 10^3/uL Monocytes # (Manual) (0.0-1.0) 10^3/uL Eosinophils # (Manual) (0-0.7) 10^3/uL Basophils # (Manual) (0-0.1) 10^3/uL Differential Comment WBC Morphology (NORMAL) Platelet Estimate (NORMAL) Platelet Morphology (NORMAL) RBC Morph Micro Appear (NORMAL) Bld Gas Analysis Time Sample Site ABG pH (7.35-7.45) ABG pCO2 (34-45) mmHg ABG pO2 (83-108) mmHg ABG HCO3 (22.0-26.0) mmol/L ABG Total CO2 (21.0-29.0) mmol/L ABG O2 Saturation (95-98) % ABG Base Excess (-2.0-3.0) mmol/L Lefty Test O2 Delivery Device O2 Liters/Min LPM Sodium (135-145) mmol/L Potassium (3.5-4.5) mmol/L Chloride (101-111) mmol/L Carbon Dioxide (21-32) mmol/L Anion Gap (6-13) BUN (6-20) mg/dL Creatinine (0.6-1.3) mg/dL Estimated GFR (MDRD) (>89) Glucose (74-104) mg/dL POC Whole Bld Glucose 303 303 (70-100) mg/dL Calcium (8.5-10.3) mg/dL Magnesium (1.7-2.3) mg/dL B-Natriuretic Peptide 200 H (5-100) pg/mL 01/01/25 01/01/25 01/01/25 Range/Units 04:29 01:46 01:45 WBC 20.4 H (4.8-10.8) x10^3/uL RBC 4.69 L (4.70-6.10) 10^6/uL Hgb 13.7 L (14.0-18.0) g/dL Hct 42.8 (42.0-52.0) % MCV 91.3 (80.0-94.0) fL MCH 29.2 (27.0-31.0) pg MCHC 32.0 (32.0-36.0) g/dL RDW 15.1 H (12.0-15.0) % Plt Count 134 (130-450) 10^3/uL MPV 12.6 H (7.4-11.4) fL Neut # (Auto) Not Reportable Lymph # (Auto) Not Reportable Benson # (Auto) Not Reportable Eos # (Auto) Not Reportable Baso # (Auto) Not Reportable Absolute Nucleated RBC Not Reportable Total Counted 100 Band Neuts % (Manual) 11 H (0 - 10) % Abnorm Lymph % (Manual) 0 % Nucleated RBC % Not Reportable Neutrophils # (Manual) 19.0 H (1.5-6.6) 10^3/uL Lymphocytes # (Manual) 0.0 L (1.5-3.5) 10^3/uL Monocytes # (Manual) 1.4 H (0.0-1.0) 10^3/uL Eosinophils # (Manual) 0.0 (0-0.7) 10^3/uL Basophils # (Manual) 0.0 (0-0.1) 10^3/uL Differential Comment MANUAL DIFFERENTIAL WBC Morphology 1+ TOXIC GRANULATION (NORMAL) Platelet Estimate NORMAL (130-450,000) (NORMAL) Platelet Morphology NORMAL APPEARANCE (NORMAL) RBC Morph Micro Appear NORMAL APPEARANCE (NORMAL) Bld Gas Analysis Time 0148 Sample Site LEFT RADIAL ABG pH 7.56 H (7.35-7.45) ABG pCO2 25 L (34-45) mmHg ABG pO2 78 L (83-108) mmHg ABG HCO3 22.4 (22.0-26.0) mmol/L ABG Total CO2 23.2 (21.0-29.0) mmol/L ABG O2 Saturation 96 (95-98) % ABG Base Excess 0.0 (-2.0-3.0) mmol/L Lefty Test POSITIVE O2 Delivery Device NASAL CANNULA O2 Liters/Min 2.00 LPM Sodium 145 (135-145) mmol/L Potassium 3.9 (3.5-4.5) mmol/L Chloride 108 (101-111) mmol/L Carbon Dioxide 24 (21-32) mmol/L Anion Gap 13.0 (6-13) BUN 78 H (6-20) mg/dL Creatinine 2.4 H (0.6-1.3) mg/dL Estimated GFR (MDRD) 27 L (>89) Glucose 287 H (74-104) mg/dL POC Whole Bld Glucose 239 (70-100) mg/dL Calcium 8.9 (8.5-10.3) mg/dL Magnesium 2.3 (1.7-2.3) mg/dL B-Natriuretic Peptide (5-100) pg/mL 12/31/24 12/31/24 Range/Units 20:29 16:34 WBC (4.8-10.8) x10^3/uL RBC (4.70-6.10) 10^6/uL Hgb (14.0-18.0) g/dL Hct (42.0-52.0) % MCV (80.0-94.0) fL MCH (27.0-31.0) pg MCHC (32.0-36.0) g/dL RDW (12.0-15.0) % Plt Count (130-450) 10^3/uL MPV (7.4-11.4) fL Neut # (Auto) Lymph # (Auto) Benson # (Auto) Eos # (Auto) Baso # (Auto) Absolute Nucleated RBC Total Counted Band Neuts % (Manual) (0 - 10) % Abnorm Lymph % (Manual) % Nucleated RBC % Neutrophils # (Manual) (1.5-6.6) 10^3/uL Lymphocytes # (Manual) (1.5-3.5) 10^3/uL Monocytes # (Manual) (0.0-1.0) 10^3/uL Eosinophils # (Manual) (0-0.7) 10^3/uL Basophils # (Manual) (0-0.1) 10^3/uL Differential Comment WBC Morphology (NORMAL) Platelet Estimate (NORMAL) Platelet Morphology (NORMAL) RBC Morph Micro Appear (NORMAL) Bld Gas Analysis Time Sample Site ABG pH (7.35-7.45) ABG pCO2 (34-45) mmHg ABG pO2 (83-108) mmHg ABG HCO3 (22.0-26.0) mmol/L ABG Total CO2 (21.0-29.0) mmol/L ABG O2 Saturation (95-98) % ABG Base Excess (-2.0-3.0) mmol/L Lefty Test O2 Delivery Device O2 Liters/Min LPM Sodium (135-145) mmol/L Potassium (3.5-4.5) mmol/L Chloride (101-111) mmol/L Carbon Dioxide (21-32) mmol/L Anion Gap (6-13) BUN (6-20) mg/dL Creatinine (0.6-1.3) mg/dL Estimated GFR (MDRD) (>89) Glucose (74-104) mg/dL POC Whole Bld Glucose 221 283 (70-100) mg/dL Calcium (8.5-10.3) mg/dL Magnesium (1.7-2.3) mg/dL B-Natriuretic Peptide (5-100) pg/mL Diagnostic Imaging Diagnostic Imaging Results: positive Final report reviewed Diagnostic Imaging Comments: 01/01/[address] WO: * Area of loss of roberson-white differentiation in the right frontoparietal region (12/15). No midline shift. No intracranial masses or hemorrhage. Roberson-white matter interface is normal. Mild age-related global volume loss and chronic microvascular ischemic changes. Intracranial atherosclerotic vascular calcifications. ABX Reporting Has patient been on IV antibiotics over the past 48 hours?: Yes Assessment/Plan Problem List (1) Atrial fibrillation with rapid ventricular response: Impression: Persistent afib. He continues to be tachycardic 100-135. He's being treated for sepsis. Rocephin was broadened to cefepime and vancomycin. Repeat blood cultures ordered, pending. Metoprolol was held this morning due to his hypotension. Will continue to monitor. * Ordered metoprolol 5 mg IVP Q6H PRN - to be given if HR is sustained above 120 bpm for over 5 min * Metoprolol 100mg PO BID * Eliquis 5mg PO BID - currently held pending final MRI imaging, stroke size (2) Acute metabolic encephalopathy: Impression: His altered state has progressively worsened. We started treating him for a UTI with but his WBC continued to be elevated. Since his mental status has declined so rapidly, a head CT was ordered to rule out possible stroke. The head CT result confirmed "area of loss of roberson-white differentiation in the right frontoparietal region concerning for subacute infarct". After results of MRI, reassess continuation of Eliquis. * Continue IV cefepime * Ordered vancomycin * Ordered MRI * Will allow permissive hypertension, rectal aspirin, atorvastatin (3) CHF (congestive heart failure): Impression: Chronic, stable. He continues to be tachypnic stating between 94-98% on 3L nasal cannula. Qualifiers: Heart failure chronicity: acute Heart failure type: unspecified Q ualified Code(s): I50.9 - Heart failure, unspecified (4) Uncontrolled type 2 diabetes mellitus: Impression: His recent POC glucose was 303 and on morning labs his glucose was 287. He is still receiving Glargine AM & PM doses and Lispro on a sliding scale with meals. * Continue Lispro 3-11 units on sliding scale. * Glargine 20 units SUBQ QPM and 10 units SUBQ QAM * Continue carb controlled diet * Continue POC glucose testing. Qualifiers: Glycemic state: with hyperglycemia Qualified Code(s): E11.65 - Type 2 diabetes mellitus with hyperglycemia (5) Leukocytosis: Impression: WBCs continue to increase despite switching antibiotics to Cefepime instead of ceftriaxone to cover pseudomonas as well. A blood culture was ordered to assess for specific pathogens. * Continue Cefepime 2 gm IVP Q12H Qualifiers: Leukocytosis type: unspecified Qualified Code(s): D72.829 - Elevated white blood cell count, unspecified (6) Acute hyponatremia: Impression: Resolved. Sodium and potassium are within normal limits. Sodium is within normal limits at 140, previously 137. Potassium is still low at 3.1, previously 3.4. Mild hypokalemia possibly due to fluid restriction and diuretic. Continue to monitor with repeat BMP. * Hold Lasix 40mg IVP qd; may restart oral Lasix tomorrow * Continue 1500mL fluid restriction (7) HTN (hypertension): Impression: He was hypotensive over night so his metoprolol was not given this AM. Assessing IVF and Lasix * (0500) - 112/61 * (0820) - 84/50 * (0917) - 99/56 He has been hypertensive on and off over the last day, max was 161/89 and is currently 143/78 with HR of 136 bpm. This may be in response to his UTI or due to his elevated HR and afib. Will continue to monitor and adjust his medications as necessary. He is not exhibiting any concerning symptoms at this time. * Hold metoprolol 100 mg PO BID for 24 -48 hours to allow for permissive hypertension Qualifiers: Hypertension type: unspecified Qualified Code(s): I10 - Essential (primary) hypertension (8) Hematoma: Impression: Stable. (9) Diabetic foot ulcer: Impression: Resolved. On exam, no open lesions were noted on either foot. He has thick calluses on pressure points of his right foot and onychomycosis bilaterally. * Continue to monitor with exams. * Continue to adjust insulin dosages to optimize glycemic control. Qualifiers: Diabetes mellitus type: type 2 Diabetic foot ulcer location: heel L aterality: unspecified laterality Non-pressure ulcer stage: unspecified non- pressure ulcer stage Qualified Code(s): E11.621 - Type 2 diabetes mellitus with foot ulcer; L97.409 - Non-pressure chronic ulcer of unspecified heel and midfoot with unspecified severity (10) Back pain: Impression: Continues to deny pain. Resolved issue at this time. 12/31/[address]: multilevel degenerative changes most notably L3-4, L4- 5, L5-S1. (detailed result above in diagnostic section) He denies any pain at this time. Will continue to monitor and increase movement as he improves. * If symptoms worsen, consider MRI. * Continue PT/OT evaluation and management. Recommend SNF on discharge. Qualifiers: Back pain laterality: unspecified Back pain location: back pain in unspecified location Chronicity: unspecified Qualified Code(s): M54.9 - Dorsalgia, unspecified
[2025-01-01] MEDS ORDERED: LACTATED RINGERS 500 ML IV ONE (12:47)
[2025-01-01] MEDS: ASPIRIN 300 MG SUPP PR ONE (14:29)
[2025-01-01] MEDS: LACTATED RINGERS 1,000 ML IV ONE (14:31)
--- NOTE | 2025-01-01 15:11 | XRAY Report ---
PROCEDURE: XR Chest 1V INDICATIONS: RICKI TECHNIQUE: One view of the chest was acquired. COMPARISON: 12/31/2024 FINDINGS: Surgical changes and devices: None. Lungs and pleura: No pleural effusions or pneumothorax. No consolidation. Low lung volumes. Mediastinum: Mediastinal contours appear normal. Heart size is normal. Bones and chest wall: No suspicious bony lesions. Overlying soft tissues appear unremarkable. IMPRESSION: No acute cardiopulmonary process. Reviewed by: Kofi Hilton MD on 01/01/2025 3:10 PM PDT Approved by: Kofi Hilton MD on 01/01/2025 3:10 PM PDT Station ID: [id number]
[2025-01-01] MEDS: FUROSEMIDE 40 MG/4 ML VIAL IVP ONE (17:50)
[2025-01-01] MEDS: METOPROLOL 5 MG/5 ML VIAL IVP ONE (18:15)
--- NOTE | 2025-01-01 18:15 | MRI Report ---
PROCEDURE: MRI Brain WO INDICATIONS: AMS TECHNIQUE: Noncontrast axial T1 spin echo, axial T2 fast spin echo, sagittal and axial FLAIR, coronal T2 fast sp in echo, axial gradient echo, axial diffusion and ADC through the brain. COMPARISON: CT head 01/01/2025 FINDINGS: Image quality: Excellent. CSF Spaces: Basal cisterns are patent. No extra-axial fluid collections. Ventricles are normal in size and shape. Brain: No intracranial masses or hemorrhage. Roberson/white matter interface is normal. Brainstem appe ars normal. Diffusion-weighted images demonstrate prominent hyperintensity on diffusion and correlat ing hypointensity on ADC in the right parietal occipital lobe. Scattered areas of similar increased s ignal intensity are present in the left occipital lobe as well as scattered punctate areas in the fro ntal lobes bilaterally, left temporal as well as left parietal lobe. No chronic ischemic insults. No rmal intravascular flow voids are present. Skull and face: Calvarium has normal marrow signal. Orbits appear normal. Sinuses: Sinuses and mastoids are clear. IMPRESSION: Multifocal areas of hyperintensity on diffusion sequence consistent with acute to subacute ischemia. Atrophy and chronic microvascular ischemic changes. Reviewed by: Patt Gary MD on 01/01/2025 6:14 PM PDT Approved by: Patt Gary MD on 01/01/2025 6:14 PM PDT Station ID: [id number]
--- NOTE | 2025-01-01 19:18 | PROVIDER PROGRESS NOTE ---
Progress Note Progress Note Progress Note: Patient's MRI read returned: No intracranial masses or hemorrhage. Roberson/white matter interface is normal. Brainstem appears normal. Diffusion-weighted images demonstrate prominent hyperintensity on diffusion and correlating hypointensity on ADC in the right parietal occipital lobe. Scattered areas of similar increased signal intensity are present in the left occipital lobe as well as scattered punctate areas in the frontal lobes bilaterally, left temporal as well as left parietal lobe. No chronic ischemic insults. Normal intravascular flow voids are present. I reached out to Dr. Salinas at [facility] (neurology). He does not recommend anything further at this time. Can continue anticoagulation at this time. Recommend CTA - if positive for large vessel occlusion, can add Plavix. I spoke with and son at bedside. I spoke with daughter on the phone as well. Patient is exhibiting typical Marc-Jordan respiration pattern, likely related to these acute strokes. Transferred to the ICU. Will trial BiPAP or high flow nasal cannula for extra PEEP, and assistance with work of breathing. Unclear if this is an issue that is resolvable with these large strokes. I spoke with family about next steps including possible hospice. They are open to hospice informational. I placed the order for such for tomorrow.
--- NOTE | 2025-01-01 19:23 | XRAY Report ---
PROCEDURE: XR Chest for Line Placement INDICATIONS: NG tube insertion TECHNIQUE: One view of the chest was acquired. COMPARISON: Chest x-ray 01/01/2025. FINDINGS: Surgical changes and devices: Nasogastric tube is present projecting below the left hemidiaphragm. Lungs and pleura: No pleural effusions or pneumothorax. No consolidation. Mediastinum: Mediastinal contours appear normal. Heart size is normal. Bones and chest wall: No suspicious bony lesions. Overlying soft tissues appear unremarkable. IMPRESSION: Nasogastric tube as above. Reviewed by: Patt Gary MD on 01/01/2025 7:21 PM PDT Approved by: Patt Gary MD on 01/01/2025 7:21 PM PDT Station ID: [id number]
[2025-01-01] MEDS: LACTATED RINGERS 500 ML IV ONE (19:51)
[2025-01-01] MEDS ORDERED: MORPHINE 2 MG/ML CARPUJECT IVP SCH (20:00)
[2025-01-01] MEDS: ATORVASTATIN 40 MG TABLET PO SCH (20:34)
[2025-01-01 21:03] LABS: ABG OXYGEN SATURATION 99 % (95-98); ABG PCO2 25 mmHg (34-45); ABG PH 7.54 (7.35-7.45); ABG PO2 104 mmHg (83-108)
[2025-01-01 21:04] LABS: ABG BASE EXCESS -1.5 mmol/L (-2.0-3.0); ABG HCO3 21.3 mmol/L (22.0-26.0); ALLEN TEST POSITIVE
[2025-01-01 23:39] LABS: ABG BASE EXCESS -1.7 mmol/L (-2.0-3.0); ABG HCO3 21.1 mmol/L (22.0-26.0); ABG OXYGEN SATURATION 99 % (95-98); ABG PCO2 25 mmHg (34-45); ABG PH 7.54 (7.35-7.45); ABG PO2 112 mmHg (83-108); ABG TCO2 21.8 mmol/L (21.0-29.0); ALLEN TEST POSITIVE
[2025-01-01 23:40] LABS: ABG RESPIRATORY RATE 14 b/min
[2025-01-01] MEDS: INSULIN REGULAR, HUMAN 300 UNIT/3 ML PEN SUBQ SCH (23:58)
[2025-01-02] MEDS: ACETAMINOPHEN 325 MG TABLET PO PRN (00:23)
[2025-01-02 04:56] LABS: BASOPHILS % (AUTO) 0.4 %; HCT - HEMATOCRIT 40.1 % (42.0-52.0); HGB - HEMOGLOBIN 12.9 g/dL (14.0-18.0); LYMPHOCYTES % (AUTO) 3.1 %; MEAN CORPUSCULAR HEMOGLOBIN 29.2 pg (27.0-31.0); MEAN CORPUSCULAR HGB CONC 32.2 g/dL (32.0-36.0); MEAN CORPUSCULAR VOLUME 90.7 fL (80.0-94.0); MEAN PLATELET VOLUME 12.9 fL (7.4-11.4); MONOCYTES % (AUTO) 7.4 %; NEUTROPHILS % (AUTO) 86.9 %; PLT - PLATELET COUNT 109 10^3/uL (130-450); RED BLOOD COUNT 4.42 10^6/uL (4.70-6.10); RED CELL DISTRIBUTION WIDTH 15.3 % (12.0-15.0); WHITE BLOOD COUNT 22.4 x10^3/uL (4.8-10.8)
[2025-01-02 05:06] LABS: ABNORMAL LYMPHS % (MANUAL) 0 %
[2025-01-02 05:10] LABS: CALCIUM 8.3 mg/dL (8.5-10.3); CREATININE 3.2 mg/dL (0.6-1.3); POTASSIUM 3.7 mmol/L (3.5-4.5)
[2025-01-02 05:40] LABS: BAND NEUTROPHILS % (MANUAL) 13 %; DIFFERENTIAL COMMENT MANUAL DIFFERENTIAL; LYMPHOCYTES # (MANUAL) 0.7 10^3/uL (1.5-3.5); LYMPHOCYTES % (MANUAL) 3 %; MONOCYTES # (MANUAL) 0.2 10^3/uL (0.0-1.0); NEUTROPHILS # (MANUAL) 21.5 10^3/uL (1.5-6.6); PLATELET ESTIMATE, MANUAL DECREASED (<130,000) (NORMAL); PLATELET MORPHOLOGY NORMAL APPEARANCE (NORMAL); RBC MORPHOLOGY (MULTIPLE) NORMAL APPEARANCE (NORMAL); WBC MORPHOLOGY (MULTIPLE) NORMAL APPEARANCE (NORMAL)
[2025-01-02 06:08] LABS: ABG BASE EXCESS -2.9 mmol/L (-2.0-3.0); ABG HCO3 20.7 mmol/L (22.0-26.0); ABG OXYGEN SATURATION 97 % (95-98); ABG PCO2 27 mmHg (34-45); ABG PH 7.49 (7.35-7.45); ABG PO2 95 mmHg (83-108); ABG TCO2 21.5 mmol/L (21.0-29.0); ALLEN TEST POSITIVE
[2025-01-02 06:09] LABS: ABG RESPIRATORY RATE 14 b/min
[2025-01-02] MEDS: DEXTROSE 5% 1,000 ML IV SCH (07:56)
[2025-01-02] MEDS: metroNIDAZOLE 500 MG/100 ML 500 MG/100 ML BAG IV SCH (07:56)
[2025-01-02] MEDS ORDERED: METOPROLOL 5 MG/5 ML VIAL IVP SCH (08:00)
[2025-01-02] MEDS: SODIUM CHLORIDE 0.9% 500 ML IV ONE ×3 (08:55→18:12)
[2025-01-02] MEDS: ASPIRIN EC 81 MG TABLET PO SCH (08:55)
--- NOTE | 2025-01-02 11:45 | PROVIDER PROGRESS NOTE ---
Subjective Subjective Subjective: Patient awakens to voice. He is able to move his right arm spontaneously. He has some movement of his left arm. Even with noxious stimuli, he is not withdrawing his legs. Current Medications Current Medications Current Medications: Current Medications Generic Name Dose Route Start Last Admin Trade Name Freq PRN Reason Stop Dose Admin Acetaminophen 650 mg 12/28/24 18:08 01/02/25 00:23 Acetaminophen 325 Mg Tablet PO 650 mg Q4HR PRN Administration Pain 1 to 4, or Fever Apixaban 5 mg 12/28/24 21:00 01/02/25 08:55 Apixaban 5 Mg Tablet PO 5 mg BID DEIDRA Administration Aspirin 81 mg 01/02/25 09:00 01/02/25 08:55 Aspirin Ec 81 Mg Tablet PO 81 mg DAILY DEIDRA Administration Atorvastatin Calcium 40 mg 01/01/25 21:00 01/01/25 20:34 Atorvastatin 40 Mg Tablet PO 40 mg QPM DEIDRA Administration Cefepime HCl 2 gm 01/01/25 08:00 01/02/25 08:53 Cefepime 2 Gm Vial IVP 2 gm Q12H DEIDRA Administration Vancomycin HCl 1 gm/ Sodium 250 mls @ 167 mls/hr 01/03/25 09:00 Chloride IV Q48H DEIDRA Dextrose 1,000 mls @ 83.333 mls/hr 01/02/25 08:00 01/02/25 07:56 D5w IV 83.33 mls/hr .Q12H DEIDRA Administration Metronidazole 500 mg in 100 mls @ 100 mls/hr 01/02/25 08:00 01/02/25 08:59 Flagyl 500 Mg/100 Ml IV Infused Q8H DEIDRA Infusion Insulin Glargine-yfgn 20 unit 12/29/24 21:00 01/01/25 21:52 Insulin Glargine-Yfgn 300 Unit/3 Ml Pen SUBQ 20 unit QPM DEIDRA Administration Insulin Glargine-yfgn 10 unit 12/30/24 11:00 01/02/25 08:55 Insulin Glargine-Yfgn 300 Unit/3 Ml Pen SUBQ 10 unit DAILY DEIDRA Administration Insulin Human Regular 1 - 5 unit 01/02/25 00:00 01/02/25 06:03 Insulin Regular, Human 300 Unit/3 Ml Pen SUBQ 3 unit Q6HR DEIDRA Administration Protocol Ondansetron HCl 4 mg 12/28/24 18:08 Ondansetron Odt 4 Mg Tablet TL Q6HR PRN Nausea / Vomiting Ondansetron HCl 4 mg 12/28/24 18:08 Ondansetron 4 Mg/2 Ml Vial IVP Q6HR PRN Nausea / Vomiting Sodium Chloride 10 ml 12/29/24 01:00 01/02/25 08:56 Sodium Chloride Flush 0.9% 10 Ml Syringe IVP 10 ml 0100,0900,1700 DEIDRA Administration Sodium Chloride 10 ml 12/28/24 18:08 01/01/25 19:56 Sodium Chloride Flush 0.9% 10 Ml Syringe IVP 10 ml PRN PRN Administration NEEDED PER PROVIDER ORDERS Objective Vital Signs/Intake & Output Reviewed Vital Signs: Yes Vital Signs: Vital Signs x48h Temp Pulse Pulse Resp BP Pulse Ox 01/02/25 11:00 105 H 39 H 113/47 L 96 01/02/25 10:00 120 H 41 H 94/52 L 97 01/02/25 09:00 119 H 26 H 101/63 93 01/02/25 08:00 98.6 F 114 H 39 H 95/58 L 94 01/02/25 07:00 121 H 40 H 109/65 97 01/02/25 06:00 98.6 F 113 H 45 H 87/63 L 95 01/02/25 05:32 130 H 01/02/25 05:00 123 H 42 H 98/52 L 96 01/02/25 04:00 126 H 49 H 110/55 L 96 01/02/25 03:56 124 H Intake & Output: Intake & Output 12/30/24 12/31/24 01/01/25 01/02/25 23:59 23:59 23:59 23:59 Intake Total 1080 / 1080 430 / 430 793 / 793 100 / 100 Output Total 3850 / 3850 550 / 550 408 / 408 385 / 385 Balance -2770 / -2770 -120 / -120 385 / 385 -285 / -285 Weight (kg) 105.5 kg 102.5 kg 99 kg 98.5 kg Objective General Appearance: positive Moderate distress, Lethargic and Other (Unsettled and confused) Eyes Bilateral: positive PERRL (sluggish), No lid inflammation, Conjunctivae nml, No scleral icterus and Other (Delayed tracking of objects) ENT: positive ENT inspection nml Neck: positive Nml inspection, No JVD and Trachea midline Respiratory: positive Chest non-tender, Breath sounds nml and Other (Tachypneic) Cardiovascular: positive No murmur, No gallop, Irregularly irregular and Tachycardia Abdomen: positive Non-tender, No organomegaly, Nml bowel sounds and No distention Skin: positive Color nml, No rash, Warm, Dry and Other Extremities: positive Non-tender and Other (Right foot has thick calluses and onychomycosis of all toes, but no open lesion/ ulcer. Stasis dermatitis present bilaterally on LE. Edema is mild. ) Neurologic/Psychiatric: positive Oriented x3, CN's nml (2-12) and Other (Motor function was rigid and uncoordinated. Bilateral resting tremor of hands. Left sided neglect noted. RUE moves spontaneously, LUE with random movement as well, diminished. Bilateral lower extremity with no movement even to painful stimuli.) Lab Results 01/02/25 04:36 01/02/25 04:36 Other Labs: Lab Results x24hrs 01/02/25 01/02/25 01/02/25 Range/Units 05:59 05:55 04:36 WBC 22.4 H (4.8-10.8) x10^3/uL RBC 4.42 L (4.70-6.10) 10^6/uL Hgb 12.9 L (14.0-18.0) g/dL Hct 40.1 L (42.0-52.0) % MCV 90.7 (80.0-94.0) fL MCH 29.2 (27.0-31.0) pg MCHC 32.2 (32.0-36.0) g/dL RDW 15.3 H (12.0-15.0) % Plt Count 109 L (130-450) 10^3/uL MPV 12.9 H (7.4-11.4) fL Neut # (Auto) Not Reportable Lymph # (Auto) Not Reportable [place] # (Auto) Not Reportable Eos # (Auto) Not Reportable Baso # (Auto) Not Reportable Absolute Nucleated RBC Not Reportable Total Counted 100 Band Neuts % (Manual) 13 H (0 - 10) % Abnorm Lymph % (Manual) 0 % Nucleated RBC % Not Reportable Neutrophils # (Manual) 21.5 H (1.5-6.6) 10^3/uL Lymphocytes # (Manual) 0.7 L (1.5-3.5) 10^3/uL Monocytes # (Manual) 0.2 (0.0-1.0) 10^3/uL Eosinophils # (Manual) 0.0 (0-0.7) 10^3/uL Basophils # (Manual) 0.0 (0-0.1) 10^3/uL Differential Comment MANUAL DIFFERENTIAL WBC Morphology NORMAL APPEARANCE (NORMAL) Platelet Estimate DECREASED (<130,000) (NORMAL) Platelet Morphology NORMAL APPEARANCE (NORMAL) RBC Morph Micro Appear NORMAL APPEARANCE (NORMAL) Bld Gas Analysis Time 0603 Sample Site LEFT RADIAL ABG pH 7.49 H (7.35-7.45) ABG pCO2 27 L (34-45) mmHg ABG pO2 95 (83-108) mmHg ABG HCO3 20.7 L (22.0-26.0) mmol/L ABG Total CO2 21.5 (21.0-29.0) mmol/L ABG O2 Saturation 97 (95-98) % ABG Base Excess -2.9 L (-2.0-3.0) mmol/L Lefty Test POSITIVE Respiration Rate 14 b/min O2 Delivery Device BiPAP O2 Liters/Min LPM FiO2 50.00 EPAP 5 cmH2O IPAP 10 cmH2O Sodium 149 H (135-145) mmol/L Potassium 3.7 (3.5-4.5) mmol/L Chloride 115 H (101-111) mmol/L Carbon Dioxide 21 (21-32) mmol/L Anion Gap 13.0 (6-13) BUN 119 H* (6-20) mg/dL Creatinine 3.2 H (0.6-1.3) mg/dL Estimated GFR (MDRD) 19 L (>89) Glucose 275 H (74-104) mg/dL POC Whole Bld Glucose 274 (70-100) mg/dL Calcium 8.3 L (8.5-10.3) mg/dL B-Natriuretic Peptide 107 H (5-100) pg/mL 01/01/25 01/01/25 01/01/25 Range/Units 23:30 23:28 20:55 WBC (4.8-10.8) x10^3/uL RBC (4.70-6.10) 10^6/uL Hgb (14.0-18.0) g/dL Hct (42.0-52.0) % MCV (80.0-94.0) fL MCH (27.0-31.0) pg MCHC (32.0-36.0) g/dL RDW (12.0-15.0) % Plt Count (130-450) 10^3/uL MPV (7.4-11.4) fL Neut # (Auto) Lymph # (Auto) [place] # (Auto) Eos # (Auto) Baso # (Auto) Absolute Nucleated RBC Total Counted Band Neuts % (Manual) (0 - 10) % Abnorm Lymph % (Manual) % Nucleated RBC % Neutrophils # (Manual) (1.5-6.6) 10^3/uL Lymphocytes # (Manual) (1.5-3.5) 10^3/uL Monocytes # (Manual) (0.0-1.0) 10^3/uL Eosinophils # (Manual) (0-0.7) 10^3/uL Basophils # (Manual) (0-0.1) 10^3/uL Differential Comment WBC Morphology (NORMAL) Platelet Estimate (NORMAL) Platelet Morphology (NORMAL) RBC Morph Micro Appear (NORMAL) Bld Gas Analysis Time 2331 2057 Sample Site LEFT RADIAL LEFT RADIAL ABG pH 7.54 H 7.54 H (7.35-7.45) ABG pCO2 25 L 25 L (34-45) mmHg ABG pO2 112 H 104 (83-108) mmHg ABG HCO3 21.1 L 21.3 L (22.0-26.0) mmol/L ABG Total CO2 21.8 22.0 (21.0-29.0) mmol/L ABG O2 Saturation 99 H 99 H (95-98) % ABG Base Excess -1.7 -1.5 (-2.0-3.0) mmol/L Lefty Test POSITIVE POSITIVE Respiration Rate 14 b/min O2 Delivery Device BiPAP NASAL CANNULA O2 Liters/Min 45.00 LPM FiO2 70.00 70.00 EPAP 5 cmH2O IPAP 10 cmH2O Sodium (135-145) mmol/L Potassium (3.5-4.5) mmol/L Chloride (101-111) mmol/L Carbon Dioxide (21-32) mmol/L Anion Gap (6-13) BUN (6-20) mg/dL Creatinine (0.6-1.3) mg/dL Estimated GFR (MDRD) (>89) Glucose (74-104) mg/dL POC Whole Bld Glucose 229 (70-100) mg/dL Calcium (8.5-10.3) mg/dL B-Natriuretic Peptide (5-100) pg/mL 01/01/25 01/01/25 Range/Units 17:30 11:56 WBC (4.8-10.8) x10^3/uL RBC (4.70-6.10) 10^6/uL Hgb (14.0-18.0) g/dL Hct (42.0-52.0) % MCV (80.0-94.0) fL MCH (27.0-31.0) pg MCHC (32.0-36.0) g/dL RDW (12.0-15.0) % Plt Count (130-450) 10^3/uL MPV (7.4-11.4) fL Neut # (Auto) Lymph # (Auto) [place] # (Auto) Eos # (Auto) Baso # (Auto) Absolute Nucleated RBC Total Counted Band Neuts % (Manual) (0 - 10) % Abnorm Lymph % (Manual) % Nucleated RBC % Neutrophils # (Manual) (1.5-6.6) 10^3/uL Lymphocytes # (Manual) (1.5-3.5) 10^3/uL Monocytes # (Manual) (0.0-1.0) 10^3/uL Eosinophils # (Manual) (0-0.7) 10^3/uL Basophils # (Manual) (0-0.1) 10^3/uL Differential Comment WBC Morphology (NORMAL) Platelet Estimate (NORMAL) Platelet Morphology (NORMAL) RBC Morph Micro Appear (NORMAL) Bld Gas Analysis Time Sample Site ABG pH (7.35-7.45) ABG pCO2 (34-45) mmHg ABG pO2 (83-108) mmHg ABG HCO3 (22.0-26.0) mmol/L ABG Total CO2 (21.0-29.0) mmol/L ABG O2 Saturation (95-98) % ABG Base Excess (-2.0-3.0) mmol/L Lefty Test Respiration Rate b/min O2 Delivery Device O2 Liters/Min LPM FiO2 EPAP cmH2O IPAP cmH2O Sodium (135-145) mmol/L Potassium (3.5-4.5) mmol/L Chloride (101-111) mmol/L Carbon Dioxide (21-32) mmol/L Anion Gap (6-13) BUN (6-20) mg/dL Creatinine (0.6-1.3) mg/dL Estimated GFR (MDRD) (>89) Glucose (74-104) mg/dL POC Whole Bld Glucose 230 303 (70-100) mg/dL Calcium (8.5-10.3) mg/dL B-Natriuretic Peptide (5-100) pg/mL Diagnostic Imaging Diagnostic Imaging Results: positive Final report reviewed ABX Reporting Has patient been on IV antibiotics over the past 48 hours?: Yes Assessment/Plan Problem List (1) CVA (cerebral vascular accident): Impression: MRI with hyperintensity on diffusion correlating hypointensity on ADC the right parietal occipital lobe, with scattered areas of similar intensity in the left occipital lobe as well as scattered punctate areas in the frontal lobes bilaterally, left temporal, left parietal lobe. Spoke with Dr. Mays, [place] [facility]. Recommend CTA when more stable, to see if addition of a antiplatelet is necessary. Okay to restart anticoagulation at this time. Continue aspirin and statin. Qualifiers: CVA mechanism: unspecified Qualified Code(s): I63.9 - Cerebral infarction, unspecified (2) Sepsis: Impression: Patient becoming more hypotensive, tachycardic, tachypneic, febrile yesterday. Blood cultures sent on 01/01. 2 out of 2 positive for Staph aureus. Patient currently on vancomycin, cefepime as well as Flagyl. Will de-escalate as appropriate, pending speciation. Continue gentle IV fluid boluses. Qualifiers: Sepsis type: sepsis due to unspecified organism Sepsis acute organ dysfunction status: with acute organ dysfunction Severe sepsis acute organ dysfunction type: acute renal failure Acute renal failure type: unspecified S evere sepsis shock status: without septic shock Qualified Code(s): A41.9 - Sepsis, unspecified organism; R65.20 - Severe sepsis without septic shock; N17.9 - Acute kidney failure, unspecified (3) Atrial fibrillation with rapid ventricular response: Impression: Patient persistently in atrial fibrillation with RVR, borderline hypotensive. Continue metoprolol pushes as needed. Continue Eliquis. Continue gentle IV fluid boluses. (4) Acute metabolic encephalopathy: Impression: Likely attributed to diffuse strokes noted on MRI. Contributing factors could be hyponatremia, acute kidney injury with uremia, as well as sepsis with Staph aureus bacteremia. Once these are resolved, can assess neurological function more appropriately. (5) CHF (congestive heart failure): Impression: Patient with persistent tachypnea, improving. Trialed BiPAP without much relief. Currently on high flow nasal cannula with improvement of respiratory rate from 50s to 30s. May use morphine sparingly for tachypnea if required. Qualifiers: Heart failure chronicity: acute Heart failure type: unspecified Q ualified Code(s): I50.9 - Heart failure, unspecified (6) Uncontrolled type 2 diabetes mellitus: Impression: A1c of 9.3%. Continue insulin regimen including 10 units in the morning, 20 units of insulin Lantus at night. Sliding scale insulin also included. Patient currently is n.p.o. due to confusion. Qualifiers: Glycemic state: with hyperglycemia Qualified Code(s): E11.65 - Type 2 diabetes mellitus with hyperglycemia (7) Leukocytosis: Impression: Patient actively septic. See above. Qualifiers: Leukocytosis type: unspecified Qualified Code(s): D72.829 - Elevated white blood cell count, unspecified (8) Acute hyponatremia: Impression: Resolved, continue to monitor. (9) HTN (hypertension): Impression: Currently hypotensive, low permissive hypertension for 48 hours. Qualifiers: Hypertension type: unspecified Qualified Code(s): I10 - Essential (primary) hypertension (10) Hematoma: Impression: Right flank hematoma, stable. Hemoglobin is stable at this time. (11) Diabetic foot ulcer: Impression: On exam, no open lesions were noted on either foot. He has thick calluses on pressure points of his right foot and onychomycosis bilaterally. Qualifiers: Diabetes mellitus type: type 2 Diabetic foot ulcer location: heel L aterality: unspecified laterality Non-pressure ulcer stage: unspecified non- pressure ulcer stage Qualified Code(s): E11.621 - Type 2 diabetes mellitus with foot ulcer; L97.409 - Non-pressure chronic ulcer of unspecified heel and midfoot with unspecified severity (12) Back pain: Impression: Lumbar Spine CT: multilevel degenerative changes most notably L3-4, L4-5, L5- S1. Stable. Thoracic Spine CT: No acute osseous abnormalities are seen involving the thoracic spine. Qualifiers: Back pain laterality: unspecified Back pain location: back pain in unspecified location Chronicity: unspecified Qualified Code(s): M54.9 - Dorsalgia, unspecified
[2025-01-02 15:29] LABS: CREATININE 2.9 mg/dL (0.6-1.3); POTASSIUM 3.6 mmol/L (3.5-4.5)
[2025-01-02] MEDS: INSULIN GLARGINE-YFGN 300 UNIT/3 ML PEN SUBQ STA (16:21)
[2025-01-02] MEDS: INSULIN REGULAR, HUMAN 300 UNIT/3 ML PEN IVP ONE (16:22)
[2025-01-02 20:15] LABS: CALCIUM 7.8 mg/dL (8.5-10.3); CREATININE 2.6 mg/dL (0.6-1.3); POTASSIUM 3.5 mmol/L (3.5-4.5)
[2025-01-03 05:45] LABS: HCT - HEMATOCRIT 39.5 % (42.0-52.0); HGB - HEMOGLOBIN 12.4 g/dL (14.0-18.0); MEAN CORPUSCULAR HEMOGLOBIN 29.1 pg (27.0-31.0); MEAN CORPUSCULAR HGB CONC 31.4 g/dL (32.0-36.0); MEAN CORPUSCULAR VOLUME 92.7 fL (80.0-94.0); MEAN PLATELET VOLUME 14.2 fL (7.4-11.4); RED BLOOD COUNT 4.26 10^6/uL (4.70-6.10); RED CELL DISTRIBUTION WIDTH 15.6 % (12.0-15.0); WHITE BLOOD COUNT 18.9 x10^3/uL (4.8-10.8)
[2025-01-03 06:00] LABS: MAGNESIUM 2.8 mg/dL (1.7-2.3)
[2025-01-03 06:07] LABS: CALCIUM 7.9 mg/dL (8.5-10.3); CREATININE 2.3 mg/dL (0.6-1.3); POTASSIUM 3.5 mmol/L (3.5-4.5)
[2025-01-03] MEDS: INSULIN REGULAR, HUMAN 300 UNIT/3 ML PEN SUBQ SCH ×3 (06:26→17:11)
[2025-01-03] MEDS: INSULIN REGULAR, HUMAN 300 UNIT/3 ML PEN SUBQ ONE (06:39)
[2025-01-03 08:10] LABS: VANCOMYCIN,TROUGH 8.4 ug/mL
[2025-01-03] MEDS: LACTATED RINGERS 500 ML IV ONE (08:29)
[2025-01-03 08:42] LABS: VANCOMYCIN,RANDOM 8.8 ug/mL
[2025-01-03] MEDS: METOPROLOL TARTRATE 50 MG TABLET NG SCH (08:56)
[2025-01-03] MEDS: INSULIN GLARGINE-YFGN 300 UNIT/3 ML PEN SUBQ SCH (08:57)
[2025-01-03] MEDS ORDERED: METOPROLOL TARTRATE 50 MG TABLET PO SCH (09:00)
--- NOTE | 2025-01-03 09:31 | PROVIDER PROGRESS NOTE ---
Subjective Subjective Subjective: Patient awakens to voice. He is able to move his right arm spontaneously. He has some movement of his left arm. Even with noxious stimuli, he is not withdrawing his legs. Current Medications Current Medications Current Medications: Current Medications Generic Name Dose Route Start Last Admin Trade Name Freq PRN Reason Stop Dose Admin Acetaminophen 650 mg 12/28/24 18:08 01/02/25 00:23 Acetaminophen 325 Mg Tablet PO 650 mg Q4HR PRN Administration Pain 1 to 4, or Fever Apixaban 5 mg 12/28/24 21:00 01/03/25 08:56 Apixaban 5 Mg Tablet PO 5 mg BID DEIDRA Administration Aspirin 81 mg 01/02/25 09:00 01/03/25 08:56 Aspirin Ec 81 Mg Tablet PO 81 mg DAILY DEIDRA Administration Atorvastatin Calcium 40 mg 01/01/25 21:00 01/02/25 20:52 Atorvastatin 40 Mg Tablet PO 40 mg QPM DEIDRA Administration Cefepime HCl 2 gm 01/01/25 08:00 01/03/25 08:29 Cefepime 2 Gm Vial IVP 2 gm Q12H DEIDRA Administration Vancomycin HCl 1 gm/ Sodium 250 mls @ 167 mls/hr 01/03/25 09:00 Chloride IV Q48H DEIDRA Dextrose 1,000 mls @ 83.333 mls/hr 01/02/25 08:00 01/03/25 08:29 D5w IV 83.33 mls/hr .Q12H DEIDRA Administration Insulin Glargine-yfgn 20 unit 12/29/24 21:00 01/02/25 20:56 Insulin Glargine-Yfgn 300 Unit/3 Ml Pen SUBQ 20 unit QPM DEIDRA Administration Insulin Glargine-yfgn 20 unit 01/03/25 09:00 01/03/25 08:57 Insulin Glargine-Yfgn 300 Unit/3 Ml Pen SUBQ 20 unit DAILY DEIDRA Administration Insulin Human Regular 2 - 10 unit 01/03/25 12:00 Insulin Regular, Human 300 Unit/3 Ml Pen SUBQ Q6HR DEIDRA Protocol Metoprolol Tartrate 50 mg 01/03/25 09:00 01/03/25 08:56 Metoprolol Tartrate 50 Mg Tablet NG 50 mg BID DEIDRA Administration Ondansetron HCl 4 mg 12/28/24 18:08 Ondansetron Odt 4 Mg Tablet TL Q6HR PRN Nausea / Vomiting Ondansetron HCl 4 mg 12/28/24 18:08 Ondansetron 4 Mg/2 Ml Vial IVP Q6HR PRN Nausea / Vomiting Sodium Chloride 10 ml 12/29/24 01:00 01/03/25 08:56 Sodium Chloride Flush 0.9% 10 Ml Syringe IVP 10 ml 0100,0900,1700 DEIDRA Administration Sodium Chloride 10 ml 12/28/24 18:08 01/01/25 19:56 Sodium Chloride Flush 0.9% 10 Ml Syringe IVP 10 ml PRN PRN Administration NEEDED PER PROVIDER ORDERS Objective Vital Signs/Intake & Output Reviewed Vital Signs: Yes Vital Signs: Vital Signs x48h Temp Pulse Pulse Resp BP BP Pulse Ox 01/03/25 09:00 114 H 26 H 129/66 97 01/03/25 08:56 122 H 126/87 01/03/25 08:54 01/03/25 08:00 98.2 F 120 H 31 H 89/62 L 97 01/03/25 07:00 01/03/25 07:00 122 H 32 H 123/59 L 96 01/03/25 06:00 116 H 32 H 117/72 98 01/03/25 05:00 98.4 F 114 H 35 H 117/72 98 01/03/25 05:00 01/03/25 04:00 107 H 40 H 104/64 98 01/03/25 03:00 01/03/25 03:00 111 H 43 H 101/60 98 01/03/25 02:00 106 H 40 H 110/76 98 O2 Flow Rate 01/03/25 09:00 6 01/03/25 08:56 01/03/25 08:54 6 01/03/25 08:00 6 01/03/25 07:00 6 01/03/25 07:00 6 01/03/25 06:00 6 01/03/25 05:00 6 01/03/25 05:00 6 01/03/25 04:00 6 01/03/25 03:00 6 01/03/25 03:00 6 01/03/25 02:00 6 Intake & Output: Intake & Output 12/31/24 01/01/25 01/02/25 01/03/25 23:59 23:59 23:59 23:59 Intake Total 430 / 430 793 / 793 2690 / 2690 1600 / 1600 Output Total 550 / 550 408 / 408 2215 / 2215 1100 / 1100 Balance -120 / -120 385 / 385 475 / 475 500 / 500 Weight (kg) 102.5 kg 99 kg 98.5 kg 98 kg Objective General Appearance: positive Moderate distress, Lethargic and Other (Unsettled and confused) Eyes Bilateral: positive PERRL (sluggish), No lid inflammation, Conjunctivae nml, No scleral icterus and Other (Delayed tracking of objects) ENT: positive ENT inspection nml Neck: positive Nml inspection, No JVD and Trachea midline Respiratory: positive Chest non-tender, Breath sounds nml and Other (Tachypneic) Cardiovascular: positive No murmur, No gallop, Irregularly irregular and Tachycardia Abdomen: positive Non-tender, No organomegaly, Nml bowel sounds and No distention Skin: positive Color nml, No rash, Warm, Dry and Other Extremities: positive Non-tender and Other (Right foot has thick calluses and onychomycosis of all toes, but no open lesion/ ulcer. Stasis dermatitis present bilaterally on LE. Edema is mild. ) Neurologic/Psychiatric: positive Oriented x3, CN's nml (2-12) and Other (Motor function was rigid and uncoordinated. Bilateral resting tremor of hands. Left sided neglect noted. RUE moves spontaneously, LUE with random movement as well, diminished. Bilateral lower extremity with no movement even to painful stimuli.) Lab Results 01/03/25 04:52 01/03/25 04:52 Other Labs: Lab Results x24hrs 01/03/25 01/03/25 01/03/25 Range/Units 08:03 06:17 04:52 WBC 18.9 H (4.8-10.8) x10^3/uL RBC 4.26 L (4.70-6.10) 10^6/uL Hgb 12.4 L (14.0-18.0) g/dL Hct 39.5 L (42.0-52.0) % MCV 92.7 (80.0-94.0) fL MCH 29.1 (27.0-31.0) pg MCHC 31.4 L (32.0-36.0) g/dL RDW 15.6 H (12.0-15.0) % Plt Count 91 L (130-450) 10^3/uL MPV 14.2 H (7.4-11.4) fL Sodium 150 H (135-145) mmol/L Potassium 3.5 (3.5-4.5) mmol/L Chloride 117 H (101-111) mmol/L Carbon Dioxide 22 (21-32) mmol/L Anion Gap 11.0 (6-13) BUN 109 H* (6-20) mg/dL Creatinine 2.3 H (0.6-1.3) mg/dL Estimated GFR (MDRD) 28 L (>89) Glucose 436 H (74-104) mg/dL POC Whole Bld Glucose 383 (70-100) mg/dL Calcium 7.9 L (8.5-10.3) mg/dL Magnesium 2.8 H (1.7-2.3) mg/dL Last Dose Date UNK UNK Last Dose Time UNK UNK Vancomycin Trough 8.4 ug/mL Random Vancomycin 8.8 ug/mL 01/03/25 01/02/25 01/02/25 Range/Units 00:17 19:43 18:12 WBC (4.8-10.8) x10^3/uL RBC (4.70-6.10) 10^6/uL Hgb (14.0-18.0) g/dL Hct (42.0-52.0) % MCV (80.0-94.0) fL MCH (27.0-31.0) pg MCHC (32.0-36.0) g/dL RDW (12.0-15.0) % Plt Count (130-450) 10^3/uL MPV (7.4-11.4) fL Sodium 150 H (135-145) mmol/L Potassium 3.5 (3.5-4.5) mmol/L Chloride 116 H (101-111) mmol/L Carbon Dioxide 23 (21-32) mmol/L Anion Gap 11.0 (6-13) BUN 119 H* (6-20) mg/dL Creatinine 2.6 H (0.6-1.3) mg/dL Estimated GFR (MDRD) 25 L (>89) Glucose 360 H (74-104) mg/dL POC Whole Bld Glucose 346 301 (70-100) mg/dL Calcium 7.8 L (8.5-10.3) mg/dL Magnesium (1.7-2.3) mg/dL Last Dose Date Last Dose Time Vancomycin Trough ug/mL Random Vancomycin ug/mL 01/02/25 01/02/25 Range/Units 14:59 11:57 WBC (4.8-10.8) x10^3/uL RBC (4.70-6.10) 10^6/uL Hgb (14.0-18.0) g/dL Hct (42.0-52.0) % MCV (80.0-94.0) fL MCH (27.0-31.0) pg MCHC (32.0-36.0) g/dL RDW (12.0-15.0) % Plt Count (130-450) 10^3/uL MPV (7.4-11.4) fL Sodium 149 H (135-145) mmol/L Potassium 3.6 (3.5-4.5) mmol/L Chloride 114 H (101-111) mmol/L Carbon Dioxide 22 (21-32) mmol/L Anion Gap 13.0 (6-13) BUN 125 H* (6-20) mg/dL Creatinine 2.9 H (0.6-1.3) mg/dL Estimated GFR (MDRD) 22 L (>89) Glucose 397 H (74-104) mg/dL POC Whole Bld Glucose 308 (70-100) mg/dL Calcium 8.0 L (8.5-10.3) mg/dL Magnesium (1.7-2.3) mg/dL Last Dose Date Last Dose Time Vancomycin Trough ug/mL Random Vancomycin ug/mL Diagnostic Imaging Diagnostic Imaging Results: positive Final report reviewed ABX Reporting Has patient been on IV antibiotics over the past 48 hours?: Yes Assessment/Plan Problem List (1) CVA (cerebral vascular accident): Impression: MRI with hyperintensity on diffusion correlating hypointensity on ADC the right parietal occipital lobe, with scattered areas of similar intensity in the left occipital lobe as well as scattered punctate areas in the frontal lobes bilaterally, left temporal, left parietal lobe. Spoke with Dr. Mays, [place] [facility]. Recommend CTA when more stable, to see if addition of a antiplatelet is necessary. Okay to restart anticoagulation at this time. Continue aspirin and statin. Qualifiers: CVA mechanism: unspecified Qualified Code(s): I63.9 - Cerebral infarction, unspecified (2) Sepsis: Impression: Patient became more hypotensive, tachycardic, tachypneic, febrile. Blood cultures sent on 01/01. 2 out of 2 positive for MSSA. Repeat blood cultures ordered today. Patient was on vancomycin, cefepime as well as Flagyl - de- esclated to cefazolin today. Continue gentle IV fluid boluses. Qualifiers: Acute renal failure type: unspecified Sepsis acute organ dysfunction status: with acute organ dysfunction Sepsis type: sepsis due to unspecified organism Severe sepsis acute organ dysfunction type: acute renal failure S evere sepsis shock status: without septic shock Qualified Code(s): A41.9 - Sepsis, unspecified organism; R65.20 - Severe sepsis without septic shock; N17.9 - Acute kidney failure, unspecified (3) Atrial fibrillation with rapid ventricular response: Impression: Patient persistently in atrial fibrillation with RVR, borderline hypotensive. Restarted oral metoprolol. Continue Eliquis. Continue gentle IV fluid boluses. (4) Acute metabolic encephalopathy: Impression: Likely attributed to diffuse strokes noted on MRI. Contributing factors could be hypernatremia, acute kidney injury with uremia, as well as sepsis with Staph aureus bacteremia. Once these are resolved, can assess neurological function more appropriately. Family is leaning towards Hospice; informational was done. (5) Leukocytosis: Impression: Patient actively septic. See above. Qualifiers: Leukocytosis type: unspecified Qualified Code(s): D72.829 - Elevated white blood cell count, unspecified (6) Acute hyponatremia: Impression: Resolved, continue to monitor. (7) Hematoma: Impression: Right flank hematoma, stable. Hemoglobin is stable at this time. (8) Diabetic foot ulcer: Impression: On exam, no open lesions were noted on either foot. He has thick calluses on pressure points of his right foot and onychomycosis bilaterally. Qualifiers: Diabetes mellitus type: type 2 Diabetic foot ulcer location: heel L aterality: unspecified laterality Non-pressure ulcer stage: unspecified non- pressure ulcer stage Qualified Code(s): E11.621 - Type 2 diabetes mellitus with foot ulcer; L97.409 - Non-pressure chronic ulcer of unspecified heel and midfoot with unspecified severity (9) Back pain: Impression: Lumbar Spine CT: multilevel degenerative changes most notably L3-4, L4-5, L5- S1. Stable. Thoracic Spine CT: No acute osseous abnormalities are seen involving the thoracic spine. Qualifiers: Back pain laterality: unspecified Back pain location: back pain in unspecified location Chronicity: unspecified Qualified Code(s): M54.9 - Dorsalgia, unspecified (10) CHF (congestive heart failure): Impression: Patient with persistent tachypnea, improving. Trialed BiPAP without much relief. Currently on high flow nasal cannula with improvement of respiratory rate from 50s to 30s. May use morphine sparingly for tachypnea if required. Qualifiers: Heart failure chronicity: acute Heart failure type: unspecified Q ualified Code(s): I50.9 - Heart failure, unspecified (11) Uncontrolled type 2 diabetes mellitus: Impression: A1c of 9.3%. Increase insulin regimen to 20 units in the morning, 20 units of insulin Lantus at night. Sliding scale insulin also included. Patient currently is n.p.o. due to confusion. Qualifiers: Glycemic state: with hyperglycemia Qualified Code(s): E11.65 - Type 2 diabetes mellitus with hyperglycemia (12) HTN (hypertension): Impression: Currently hypotensive, low permissive hypertension for 48 hours. Qualifiers: Hypertension type: unspecified Qualified Code(s): I10 - Essential (primary) hypertension
[2025-01-03] MEDS: VANCOMYCIN INJ 1 GM in SODIUM CHLORIDE 0.9% 250 ML IV SCH (11:19)
[2025-01-03] MEDS: ceFAZolin 2 GM VIAL IVP SCH (12:13)
[2025-01-03] MEDS: INSULIN REGULAR, HUMAN 300 UNIT/3 ML PEN IVP ONE (12:22)
[2025-01-03 14:02] LABS: CALCIUM 8.3 mg/dL (8.5-10.3); CREATININE 2.2 mg/dL (0.6-1.3); POTASSIUM 3.3 mmol/L (3.5-4.5)
[2025-01-03 15:01] LABS: MAGNESIUM 2.9 mg/dL (1.7-2.3)
[2025-01-03] MEDS: INSULIN REGULAR IN 0.9 % NS 100 UNIT/100 ML BAG IV SCH (15:01)
[2025-01-03 15:06] LABS: PHOSPHORUS 2.7 mg/dL (2.5-5.0)
[2025-01-03] MEDS: POTASSIUM CHLORIDE 20 MEQ/15 ML UDC NG ONE (15:11)
[2025-01-03 17:13] LABS: MAGNESIUM 2.9 mg/dL (1.7-2.3)
[2025-01-03 17:19] LABS: PHOSPHORUS 2.7 mg/dL (2.5-5.0)
[2025-01-03 17:22] LABS: CALCIUM 8.4 mg/dL (8.5-10.3); CREATININE 2.3 mg/dL (0.6-1.3); POTASSIUM 3.4 mmol/L (3.5-4.5)
[2025-01-03] MEDS: POTASSIUM CHLORIDE 20 MEQ/15 ML UDC PO ONE (18:34)
[2025-01-03 19:16] LABS: MAGNESIUM 2.9 mg/dL (1.7-2.3); PHOSPHORUS 2.4 mg/dL (2.5-5.0)
[2025-01-03 19:20] LABS: CALCIUM 8.1 mg/dL (8.5-10.3); CREATININE 2.1 mg/dL (0.6-1.3); POTASSIUM 3.3 mmol/L (3.5-4.5)
[2025-01-03] MEDS: POTASSIUM CHLOR 10 MEQ/100 ML 10 MEQ/100 ML BAG IV SCH (21:09)
[2025-01-03 21:48] LABS: MAGNESIUM 2.8 mg/dL (1.7-2.3); PHOSPHORUS 2.2 mg/dL (2.5-5.0)
[2025-01-03] MEDS ORDERED: POTASSIUM CHLORIDE 20 MEQ/15 ML UDC PO SCH (22:00)
[2025-01-03 22:07] LABS: POTASSIUM 3.4 mmol/L (3.5-4.5)
[2025-01-04 00:06] LABS: CALCIUM 8.6 mg/dL (8.5-10.3); CREATININE 2.2 mg/dL (0.6-1.3); POTASSIUM 4.1 mmol/L (3.5-4.5)
[2025-01-04] MEDS ORDERED: SODIUM CHLORIDE 0.9% 500 ML IV ONE (01:05)
[2025-01-04] MEDS: SODIUM CHLORIDE 0.9% 500 ML IV ONE (01:11)
[2025-01-04 03:28] LABS: MAGNESIUM 2.8 mg/dL (1.7-2.3)
[2025-01-04 03:34] LABS: PHOSPHORUS 2.3 mg/dL (2.5-5.0)
[2025-01-04 03:41] LABS: CALCIUM 8.3 mg/dL (8.5-10.3); CREATININE 2.1 mg/dL (0.6-1.3); POTASSIUM 3.6 mmol/L (3.5-4.5)
[2025-01-04] MEDS: NEUTRA-PHOS 250 MG TABLET PO SCH (05:25)
[2025-01-04 06:16] LABS: CREATININE 1.9 mg/dL (0.6-1.3); POTASSIUM 3.6 mmol/L (3.5-4.5)
--- NOTE | 2025-01-04 07:48 | XRAY Report ---
PROCEDURE: XR Chest 1V INDICATIONS: dyspnea TECHNIQUE: One view of the chest was acquired. COMPARISON: 01/01/2025. FINDINGS: Surgical changes and devices: NG tube tip is in the expected location of stomach lumen below the lef t hemidiaphragm.. Lungs and pleura: No pleural effusions or pneumothorax. No consolidation. Mediastinum: Mediastinal contours appear normal. Heart size is normal. Bones and chest wall: No suspicious bony lesions. Overlying soft tissues appear unremarkable. IMPRESSION: No definite focal infiltrate. No pleural effusion or pneumothorax.. Findings are concordant with preliminary interpretation provided by [facility]. Reviewed by: Reza Ott MD on 01/04/2025 7:47 AM PDT Approved by: Reza Ott MD on 01/04/2025 7:47 AM PDT Station ID: [id number]
[2025-01-04 07:55] LABS: HCT - HEMATOCRIT 39.3 % (42.0-52.0); HGB - HEMOGLOBIN 12.2 g/dL (14.0-18.0); MEAN CORPUSCULAR VOLUME 93.6 fL (80.0-94.0); PLT - PLATELET COUNT 123 10^3/uL (130-450); RED CELL DISTRIBUTION WIDTH 15.9 % (12.0-15.0); WHITE BLOOD COUNT 21.9 x10^3/uL (4.8-10.8)
[2025-01-04 09:21] LABS: MAGNESIUM 2.9 mg/dL (1.7-2.3)
[2025-01-04 09:27] LABS: PHOSPHORUS 2.6 mg/dL (2.5-5.0); POTASSIUM 4.5 mmol/L (3.5-4.5)
[2025-01-04 09:28] LABS: CALCIUM 8.3 mg/dL (8.5-10.3)
[2025-01-04] MEDS: PANTOPRAZOLE 40 MG VIAL IVP SCH (09:38)
--- NOTE | 2025-01-04 09:41 | PROVIDER PROGRESS NOTE ---
Subjective Subjective Subjective: Patient awakens to voice. He is able to move his right arm spontaneously. He has some movement of his left arm. Even with noxious stimuli, he is not withdrawing his legs. Updatelater today, patient was reassessed. He has less movement of his upper extremities. He is not moving them spontaneously. Pupils are still equal and reactive to light, although sluggish. He still awakening to voice. Repeat CT head ordered, pending. Current Medications Current Medications Current Medications: Current Medications Generic Name Dose Route Start Last Admin Trade Name Freq PRN Reason Stop Dose Admin Acetaminophen 650 mg 12/28/24 18:08 01/03/25 21:16 Acetaminophen 325 Mg Tablet PO 650 mg Q4HR PRN Administration Pain 1 to 4, or Fever Apixaban 5 mg 12/28/24 21:00 01/03/25 21:16 Apixaban 5 Mg Tablet PO 5 mg BID DEIDRA Administration Aspirin 81 mg 01/02/25 09:00 01/03/25 08:56 Aspirin Ec 81 Mg Tablet PO 81 mg DAILY DEIDRA Administration Atorvastatin Calcium 40 mg 01/01/25 21:00 01/03/25 21:16 Atorvastatin 40 Mg Tablet PO 40 mg QPM DEIDRA Administration Cefazolin Sodium 2 gm 01/03/25 12:00 01/04/25 04:26 Cefazolin 2 Gm Vial IVP 2 gm Q8H DEIDRA Administration Dextrose 1,000 mls @ 100 mls/hr 01/02/25 08:00 01/04/25 04:35 D5w IV 100 mls/hr .Q10H DEIDRA Administration Insulin Human Regular 100 unit in 100 mls @ 1 mls/hr 01/03/25 15:00 01/04/25 03:09 Myxredlin 100 Unit/100 Ml Bag IV 3.75 unit/hr TITR DEIDRA 3.75 mls/hr Administration Protocol 1 UNIT/HR Insulin Glargine-yfgn 20 unit 12/29/24 21:00 01/03/25 21:11 Insulin Glargine-Yfgn 300 Unit/3 Ml Pen SUBQ 20 unit QPM DEIDRA Administration Insulin Glargine-yfgn 20 unit 01/03/25 09:00 01/03/25 08:57 Insulin Glargine-Yfgn 300 Unit/3 Ml Pen SUBQ 20 unit DAILY DEIDRA Administration Insulin Human Regular 3 - 11 unit 01/03/25 18:00 01/04/25 05:26 Insulin Regular, Human 300 Unit/3 Ml Pen SUBQ Not Given Q6HR [facility] Protocol Metoprolol Tartrate 50 mg 01/03/25 09:00 01/03/25 21:16 Metoprolol Tartrate 50 Mg Tablet NG 50 mg BID DEIDRA Administration Ondansetron HCl 4 mg 12/28/24 18:08 Ondansetron Odt 4 Mg Tablet TL Q6HR PRN Nausea / Vomiting Ondansetron HCl 4 mg 12/28/24 18:08 Ondansetron 4 Mg/2 Ml Vial IVP Q6HR PRN Nausea / Vomiting Pantoprazole Sodium 40 mg 01/04/25 09:00 Pantoprazole 40 Mg Vial IVP BID [facility] Sodium Chloride 10 ml 12/29/24 01:00 01/04/25 08:24 Sodium Chloride Flush 0.9% 10 Ml Syringe IVP 10 ml 0100,0900,1700 DEIDRA Administration Objective Vital Signs/Intake & Output Reviewed Vital Signs: Yes Vital Signs: Vital Signs x48h Temp Pulse Resp BP Pulse Ox O2 Flow Rate 01/04/25 09:00 118 H 41 H 108/55 L 95 6 01/04/25 08:00 97.7 F 99 41 H 104/41 L 95 6 01/04/25 07:00 109 H 41 H 110/60 96 6 01/04/25 06:00 112 H 44 H 76/53 L 97 6 01/04/25 05:00 95 39 H 114/62 97 10 01/04/25 04:00 98.4 F 106 H 30 H 91/60 92 15 01/04/25 03:00 98.9 F 98 24 86/46 L 95 6 01/04/25 02:00 104 H 42 H 87/54 L 94 6 Intake & Output: Intake & Output 01/01/25 01/02/25 01/03/25 01/04/25 23:59 23:59 23:59 23:59 Intake Total 793 / 793 2690 / 2690 3173 / 3173 1664 / 1664 Output Total 408 / 408 2215 / 2215 2415 / 2415 738 / 738 Balance 385 / 385 475 / 475 758 / 758 926 / 926 Weight (kg) 99 kg 98.5 kg 98 kg 99.5 kg Objective General Appearance: positive Moderate distress, Lethargic and Other (Unsettled and confused) Eyes Bilateral: positive PERRL (sluggish), No lid inflammation, Conjunctivae nml, No scleral icterus and Other (Delayed tracking of objects) ENT: positive ENT inspection nml Neck: positive Nml inspection, No JVD and Trachea midline Respiratory: positive Chest non-tender, Breath sounds nml and Other (Tachypneic) Cardiovascular: positive No murmur, No gallop, Irregularly irregular and Tachycardia Abdomen: positive Non-tender, No organomegaly, Nml bowel sounds and No distention Skin: positive Color nml, No rash, Warm, Dry and Other Extremities: positive Non-tender and Other (Right foot has thick calluses and onychomycosis of all toes, but no open lesion/ ulcer. Stasis dermatitis present bilaterally on LE. Edema is mild. ) Neurologic/Psychiatric: positive Oriented x3, CN's nml (2-12) and Other (Motor function was rigid and uncoordinated. Bilateral resting tremor of hands. Left sided neglect noted. RUE moves spontaneously, LUE with random movement as well, diminished. Bilateral lower extremity with no movement even to painful stimuli.) Lab Results 01/04/25 05:46 01/04/25 12:08 Other Labs: Lab Results x24hrs 01/04/25 01/04/25 01/04/25 Range/Units 08:55 08:54 08:03 WBC (4.8-10.8) x10^3/uL RBC (4.70-6.10) 10^6/uL Hgb (14.0-18.0) g/dL Hct (42.0-52.0) % MCV (80.0-94.0) fL MCH (27.0-31.0) pg MCHC (32.0-36.0) g/dL RDW (12.0-15.0) % Plt Count (130-450) 10^3/uL Sodium 154 H (135-145) mmol/L Potassium 4.5 (3.5-4.5) mmol/L Chloride 122 H* (101-111) mmol/L Carbon Dioxide 24 (21-32) mmol/L Anion Gap 8.0 (6-13) BUN 87 H* (6-20) mg/dL Creatinine 2.0 H (0.6-1.3) mg/dL Estimated GFR (MDRD) 33 L (>89) Glucose 169 H (74-104) mg/dL POC Whole Bld Glucose 160 150 (70-100) mg/dL Calcium 8.3 L (8.5-10.3) mg/dL Phosphorus 2.6 (2.5-5.0) mg/dL Magnesium 2.9 H (1.7-2.3) mg/dL 01/04/25 01/04/25 01/04/25 Range/Units 06:59 06:02 05:46 WBC 21.9 H (4.8-10.8) x10^3/uL RBC 4.20 L (4.70-6.10) 10^6/uL Hgb 12.2 L (14.0-18.0) g/dL Hct 39.3 L (42.0-52.0) % MCV 93.6 (80.0-94.0) fL MCH 29.0 (27.0-31.0) pg MCHC 31.0 L (32.0-36.0) g/dL RDW 15.9 H (12.0-15.0) % Plt Count 123 L (130-450) 10^3/uL Sodium (135-145) mmol/L Potassium (3.5-4.5) mmol/L Chloride (101-111) mmol/L Carbon Dioxide (21-32) mmol/L Anion Gap (6-13) BUN (6-20) mg/dL Creatinine (0.6-1.3) mg/dL Estimated GFR (MDRD) (>89) Glucose (74-104) mg/dL POC Whole Bld Glucose 158 144 (70-100) mg/dL Calcium (8.5-10.3) mg/dL Phosphorus (2.5-5.0) mg/dL Magnesium (1.7-2.3) mg/dL 01/04/25 01/04/25 01/04/25 Range/Units 05:37 04:57 04:05 WBC (4.8-10.8) x10^3/uL RBC (4.70-6.10) 10^6/uL Hgb (14.0-18.0) g/dL Hct (42.0-52.0) % MCV (80.0-94.0) fL MCH (27.0-31.0) pg MCHC (32.0-36.0) g/dL RDW (12.0-15.0) % Plt Count (130-450) 10^3/uL Sodium 155 H* (135-145) mmol/L Potassium 3.6 (3.5-4.5) mmol/L Chloride 122 H* (101-111) mmol/L Carbon Dioxide 25 (21-32) mmol/L Anion Gap 8.0 (6-13) BUN 90 H* (6-20) mg/dL Creatinine 1.9 H (0.6-1.3) mg/dL Estimated GFR (MDRD) 35 L (>89) Glucose 183 H (74-104) mg/dL POC Whole Bld Glucose 166 168 (70-100) mg/dL Calcium 8.0 L (8.5-10.3) mg/dL Phosphorus (2.5-5.0) mg/dL Magnesium (1.7-2.3) mg/dL 01/04/25 01/04/25 01/04/25 Range/Units 03:10 02:56 01:55 WBC (4.8-10.8) x10^3/uL RBC (4.70-6.10) 10^6/uL Hgb (14.0-18.0) g/dL Hct (42.0-52.0) % MCV (80.0-94.0) fL MCH (27.0-31.0) pg MCHC (32.0-36.0) g/dL RDW (12.0-15.0) % Plt Count (130-450) 10^3/uL Sodium 154 H (135-145) mmol/L Potassium 3.6 (3.5-4.5) mmol/L Chloride 122 H* (101-111) mmol/L Carbon Dioxide 25 (21-32) mmol/L Anion Gap 7.0 (6-13) BUN 92 H* (6-20) mg/dL Creatinine 2.1 H (0.6-1.3) mg/dL Estimated GFR (MDRD) 31 L (>89) Glucose 206 H (74-104) mg/dL POC Whole Bld Glucose 185 219 (70-100) mg/dL Calcium 8.3 L (8.5-10.3) mg/dL Phosphorus 2.3 L (2.5-5.0) mg/dL Magnesium 2.8 H (1.7-2.3) mg/dL 01/04/25 01/03/25 01/03/25 Range/Units 01:00 23:52 23:30 WBC (4.8-10.8) x10^3/uL RBC (4.70-6.10) 10^6/uL Hgb (14.0-18.0) g/dL Hct (42.0-52.0) % MCV (80.0-94.0) fL MCH (27.0-31.0) pg MCHC (32.0-36.0) g/dL RDW (12.0-15.0) % Plt Count (130-450) 10^3/uL Sodium 155 H* (135-145) mmol/L Potassium 4.1 (3.5-4.5) mmol/L Chloride 121 H* (101-111) mmol/L Carbon Dioxide 26 (21-32) mmol/L Anion Gap 8.0 (6-13) BUN 98 H* (6-20) mg/dL Creatinine 2.2 H (0.6-1.3) mg/dL Estimated GFR (MDRD) 30 L (>89) Glucose 160 H (74-104) mg/dL POC Whole Bld Glucose 222 160 (70-100) mg/dL Calcium 8.6 (8.5-10.3) mg/dL Phosphorus (2.5-5.0) mg/dL Magnesium (1.7-2.3) mg/dL 01/03/25 01/03/25 01/03/25 Range/Units 22:55 22:09 21:18 WBC (4.8-10.8) x10^3/uL RBC (4.70-6.10) 10^6/uL Hgb (14.0-18.0) g/dL Hct (42.0-52.0) % MCV (80.0-94.0) fL MCH (27.0-31.0) pg MCHC (32.0-36.0) g/dL RDW (12.0-15.0) % Plt Count (130-450) 10^3/uL Sodium 154 H (135-145) mmol/L Potassium 3.4 L (3.5-4.5) mmol/L Chloride 120 H* (101-111) mmol/L Carbon Dioxide 25 (21-32) mmol/L Anion Gap 9.0 (6-13) BUN 97 H* (6-20) mg/dL Creatinine 2.0 H (0.6-1.3) mg/dL Estimated GFR (MDRD) 33 L (>89) Glucose 123 H (74-104) mg/dL POC Whole Bld Glucose 141 131 (70-100) mg/dL Calcium 8.0 L (8.5-10.3) mg/dL Phosphorus 2.2 L (2.5-5.0) mg/dL Magnesium 2.8 H (1.7-2.3) mg/dL 01/03/25 01/03/25 01/03/25 Range/Units 20:52 20:00 18:56 WBC (4.8-10.8) x10^3/uL RBC (4.70-6.10) 10^6/uL Hgb (14.0-18.0) g/dL Hct (42.0-52.0) % MCV (80.0-94.0) fL MCH (27.0-31.0) pg MCHC (32.0-36.0) g/dL RDW (12.0-15.0) % Plt Count (130-450) 10^3/uL Sodium 153 H (135-145) mmol/L Potassium 3.3 L (3.5-4.5) mmol/L Chloride 120 H* (101-111) mmol/L Carbon Dioxide 26 (21-32) mmol/L Anion Gap 7.0 (6-13) BUN 99 H* (6-20) mg/dL Creatinine 2.1 H (0.6-1.3) mg/dL Estimated GFR (MDRD) 31 L (>89) Glucose 211 H (74-104) mg/dL POC Whole Bld Glucose 127 163 184 (70-100) mg/dL Calcium 8.1 L (8.5-10.3) mg/dL Phosphorus 2.4 L (2.5-5.0) mg/dL Magnesium 2.9 H (1.7-2.3) mg/dL 01/03/25 01/03/25 01/03/25 Range/Units 18:02 17:00 15:59 WBC (4.8-10.8) x10^3/uL RBC (4.70-6.10) 10^6/uL Hgb (14.0-18.0) g/dL Hct (42.0-52.0) % MCV (80.0-94.0) fL MCH (27.0-31.0) pg MCHC (32.0-36.0) g/dL RDW (12.0-15.0) % Plt Count (130-450) 10^3/uL Sodium 153 H (135-145) mmol/L Potassium 3.4 L (3.5-4.5) mmol/L Chloride 120 H* (101-111) mmol/L Carbon Dioxide 24 (21-32) mmol/L Anion Gap 9.0 (6-13) BUN 105 H* (6-20) mg/dL Creatinine 2.3 H (0.6-1.3) mg/dL Estimated GFR (MDRD) 28 L (>89) Glucose 333 H (74-104) mg/dL POC Whole Bld Glucose 237 308 358 (70-100) mg/dL Calcium 8.4 L (8.5-10.3) mg/dL Phosphorus 2.7 (2.5-5.0) mg/dL Magnesium 2.9 H (1.7-2.3) mg/dL 01/03/25 01/03/25 01/03/25 Range/Units 13:35 12:08 09:04 WBC (4.8-10.8) x10^3/uL RBC (4.70-6.10) 10^6/uL Hgb (14.0-18.0) g/dL Hct (42.0-52.0) % MCV (80.0-94.0) fL MCH (27.0-31.0) pg MCHC (32.0-36.0) g/dL RDW (12.0-15.0) % Plt Count (130-450) 10^3/uL Sodium 152 H (135-145) mmol/L Potassium 3.3 L (3.5-4.5) mmol/L Chloride 120 H* (101-111) mmol/L Carbon Dioxide 24 (21-32) mmol/L Anion Gap 8.0 (6-13) BUN 106 H* (6-20) mg/dL Creatinine 2.2 H (0.6-1.3) mg/dL Estimated GFR (MDRD) 30 L (>89) Glucose 433 H (74-104) mg/dL POC Whole Bld Glucose 389 396 (70-100) mg/dL Calcium 8.3 L (8.5-10.3) mg/dL Phosphorus 2.7 (2.5-5.0) mg/dL Magnesium 2.9 H (1.7-2.3) mg/dL Diagnostic Imaging Diagnostic Imaging Results: positive Final report reviewed ABX Reporting Has patient been on IV antibiotics over the past 48 hours?: Yes Assessment/Plan Problem List (1) CVA (cerebral vascular accident): Impression: MRI with hyperintensity on diffusion correlating hypointensity on ADC the right parietal occipital lobe, with scattered areas of similar intensity in the left occipital lobe as well as scattered punctate areas in the frontal lobes bilaterally, left temporal, left parietal lobe. Spoke with Dr. Mays, [place] [facility]. Recommend CTA when more stable, to see if addition of a antiplatelet is necessary. Okay to restart anticoagulation at this time. Continue aspirin and statin. Decreased movement of upper extremities this morning, repeat CT head ordered, pending. Qualifiers: CVA mechanism: unspecified Qualified Code(s): I63.9 - Cerebral infarction, unspecified (2) Sepsis: Impression: Patient became more hypotensive, tachycardic, tachypneic, febrile. Blood cultures sent on 01/01. 2 out of 2 positive for MSSA. Repeat blood cultures ordered 01/03 were also positive for gram positive cocci. Patient was on vancomycin, cefepime as well as Flagyl - de-esclated to cefazolin yesterday after susceptibilities were completed. With repeat cultures being positive, there is concern for endocarditis. Patient will likely need NAHUN, transfer to acute care hospital with [facility] capabilities as well as infectious disease consult. I spoke with the family regarding this, and they would not like this patient to be transferred at this time. They do not want further escalation of care at this time. Continue gentle IV fluid boluses. Qualifiers: Acute renal failure type: unspecified Sepsis acute organ dysfunction status: with acute organ dysfunction Sepsis type: sepsis due to unspecified organism Severe sepsis acute organ dysfunction type: acute renal failure S evere sepsis shock status: without septic shock Qualified Code(s): A41.9 - Sepsis, unspecified organism; R65.20 - Severe sepsis without septic shock; N17.9 - Acute kidney failure, unspecified (3) Hypernatremia: Impression: Patient persistently hypernatremic. Free water deficit of 3.4 L. Started free water boluses through NG tube as well as D5W. Continue to trend BMP every 2-4 hours, improving. Continue glucose checks every hour. (4) Atrial fibrillation with rapid ventricular response: Impression: Patient with improved rates of atrial fibrillation with RVR. Restarted oral metoprolol yesterday down NG tube. Continue Eliquis. Continue gentle IV fluid boluses. (5) Acute metabolic encephalopathy: Impression: Likely attributed to diffuse strokes noted on MRI. Contributing factors could be hypernatremia, acute kidney injury with uremia, as well as sepsis with Staph aureus bacteremia. Once these are resolved, can assess neurological function more appropriately. Family is leaning towards Hospice; informational was done. (6) Leukocytosis: Impression: Patient actively septic. See above. Qualifiers: Leukocytosis type: unspecified Qualified Code(s): D72.829 - Elevated white blood cell count, unspecified (7) Hematoma: Impression: Right flank hematoma, stable. Hemoglobin is stable at this time. (8) Diabetic foot ulcer: Impression: On exam, no open lesions were noted on either foot. He has thick calluses on pressure points of his right foot and onychomycosis bilaterally. Qualifiers: Diabetes mellitus type: type 2 Diabetic foot ulcer location: heel L aterality: unspecified laterality Non-pressure ulcer stage: unspecified non- pressure ulcer stage Qualified Code(s): E11.621 - Type 2 diabetes mellitus with foot ulcer; L97.409 - Non-pressure chronic ulcer of unspecified heel and midfoot with unspecified severity (9) Back pain: Impression: Lumbar Spine CT: multilevel degenerative changes most notably L3-4, L4-5, L5- S1. Stable. Thoracic Spine CT: No acute osseous abnormalities are seen involving the thoracic spine. Qualifiers: Back pain laterality: unspecified Back pain location: back pain in unspecified location Chronicity: unspecified Qualified Code(s): M54.9 - Dorsalgia, unspecified (10) CHF (congestive heart failure): Impression: Patient with persistent tachypnea. Chest x-ray completed with no effusions or infiltrates noted. May be central process due to CVAs. Trialed BiPAP without much relief. Currently on 6L oximizer with respiratory rate of 30-40. May use morphine sparingly for tachypnea if required. Qualifiers: Heart failure chronicity: acute Heart failure type: unspecified Q ualified Code(s): I50.9 - Heart failure, unspecified (11) Uncontrolled type 2 diabetes mellitus: Impression: A1c of 9.3%. Increase insulin regimen to 20 units in the morning, 20 units of insulin Lantus at night. Sliding scale insulin also included. Required insulin drip with D5W infusion for hypernatremia; wean off. Qualifiers: Glycemic state: with hyperglycemia Qualified Code(s): E11.65 - Type 2 diabetes mellitus with hyperglycemia (12) HTN (hypertension): Impression: Currently hypotensive. Continue to monitor. Qualifiers: Hypertension type: unspecified Qualified Code(s): I10 - Essential (primary) hypertension
[2025-01-04 12:29] LABS: CALCIUM 8.4 mg/dL (8.5-10.3); POTASSIUM 3.7 mmol/L (3.5-4.5)
[2025-01-04] MEDS: INSULIN REGULAR, HUMAN 300 UNIT/3 ML PEN SUBQ SCH (13:01)
--- NOTE | 2025-01-04 14:36 | CT Report ---
PROCEDURE: CT Head WO INDICATIONS: rule out bleed TECHNIQUE: Noncontrast 4.5 mm thick angled axial sections acquired from the foramen magnum to the vertex. For r adiation dose reduction, the following was used: automated exposure control, adjustment of mA and/or kV according to patient size. COMPARISON: MRI of brain dated 01/01/2025 FINDINGS: Image quality: Excellent. CSF spaces: Basal cisterns are patent. No extra-axial fluid collections. Ventricles are normal in size and shape. Brain: Large area of hypodensity involving right parieto-occipital region and left occipital lobe co nsistent with evolving acute to subacute infarctions seen on previous MR study. There is no acute int raparenchymal hemorrhage. No midline shift. No intracranial masses or hemorrhage. Roberson-white matter interface is normal. Skull and face: Calvarium and visualized facial bones are intact, without suspicious lesions. Sinuses: Visualized sinuses and mastoids are clear. IMPRESSION: 1. Evolving acute to subacute infarction in right parieto-occipital lobes and left occipital lobe. 2. No acute intracranial bleed. No midline shift or significant mass effect. Reviewed by: Reza Sanchez MD on 01/04/2025 2:35 PM PDT Approved by: Reza Sanchez MD on 01/04/2025 2:35 PM PDT Station ID: [id number]
[2025-01-04 15:35] LABS: CALCIUM 8.3 mg/dL (8.5-10.3); CREATININE 2.1 mg/dL (0.6-1.3); POTASSIUM 3.7 mmol/L (3.5-4.5)
[2025-01-04] MEDS: INSULIN LISPRO 300 UNIT/3 ML PEN SUBQ SCH (18:11)
[2025-01-04] MEDS: METOPROLOL TARTRATE 25 MG TABLET NG SCH (20:39)
[2025-01-05 04:51] LABS: HCT - HEMATOCRIT 38.4 % (42.0-52.0); HGB - HEMOGLOBIN 11.9 g/dL (14.0-18.0); MEAN CORPUSCULAR HEMOGLOBIN 29.1 pg (27.0-31.0); MEAN CORPUSCULAR VOLUME 93.9 fL (80.0-94.0); MEAN PLATELET VOLUME 12.9 fL (7.4-11.4); RED BLOOD COUNT 4.09 10^6/uL (4.70-6.10); RED CELL DISTRIBUTION WIDTH 15.9 % (12.0-15.0); WHITE BLOOD COUNT 27.1 x10^3/uL (4.8-10.8)
[2025-01-05 05:06] LABS: MAGNESIUM 2.8 mg/dL (1.7-2.3)
[2025-01-05 05:08] LABS: CALCIUM 7.8 mg/dL (8.5-10.3); POTASSIUM 3.9 mmol/L (3.5-4.5)
[2025-01-05] MEDS: VANCOMYCIN INJ 1.75 GM in SODIUM CHLORIDE 0.9% 500 ML IV ONE (09:53)
[2025-01-05] MEDS: BISACODYL 10 MG SUPP PR ONE (09:53)
--- NOTE | 2025-01-05 09:58 | PROVIDER PROGRESS NOTE ---
Subjective Subjective Subjective: Patient is a 69-year-old male with a history of heart failure with diastolic impairment, atrial fibrillation with RVR, unclear anticoagulation status, medication noncompliance who initially presented for fatigue, as well as a recent fall. Initially, he was being treated for atrial fibrillation with RVR. While here, he had a stroke. Initial MRI demonstrated multifocal areas of hyperintensity on diffusion sequence consistent with acute/subacute ischemia, likely cardioembolic. He then became septicinitial blood cultures grew MSSA. Repeat blood cultures at 48 hours also grew gram-positive cocci. He is currently being treated with vancomycin. He remains febrile, tachypneic, and his leukocytosis is worsening. He needs a NAHUN to assess for endocarditis, and this was discussed with family, who did not want to transfer him at this time. They are leaning towards hospice care. Plan is to discuss this today. I spoke with the , daughter, and son at bedside. They are still discussing when to initiate comfort care orders, but they are in agreement that this is what would be best for him. Patient awakens to voice. He is not doing anything meaningful. He has some spontaneous movement of his right and left arms, but this is decreasing. He has no movement of his lower extremities at this time. His pupils are reactive but sluggish. Current Medications Current Medications Current Medications: Current Medications Generic Name Dose Route Start Last Admin Trade Name Freq PRN Reason Stop Dose Admin Acetaminophen 650 mg 12/28/24 18:08 01/05/25 05:01 Acetaminophen 325 Mg Tablet PO 650 mg Q4HR PRN Administration Pain 1 to 4, or Fever Aspirin 81 mg 01/02/25 09:00 01/05/25 09:42 Aspirin Ec 81 Mg Tablet PO 81 mg DAILY DEIDRA Administration Atorvastatin Calcium 40 mg 01/01/25 21:00 01/04/25 20:36 Atorvastatin 40 Mg Tablet PO 40 mg QPM DEIDRA Administration Dextrose 1,000 mls @ 50 mls/hr 01/02/25 08:00 01/04/25 18:02 D5w IV 50 mls/hr .Q20H DEIDRA Administration Vancomycin HCl 1.75 gm/ Sodium 500 mls @ 250 mls/hr 01/05/25 10:30 Chloride IV 01/05/25 12:29 ONCE ONE Vancomycin HCl 1 gm/ 250 mls @ 167 mls/hr 01/06/25 10:30 Vancomycin HCl 250 mg/ Sodium IV Chloride Q24H DEIDRA Insulin Glargine-yfgn 20 unit 12/29/24 21:00 01/04/25 20:39 Insulin Glargine-Yfgn 300 Unit/3 Ml Pen SUBQ 20 unit QPM DEIDRA Administration Insulin Glargine-yfgn 20 unit 01/03/25 09:00 01/05/25 09:45 Insulin Glargine-Yfgn 300 Unit/3 Ml Pen SUBQ 20 unit DAILY DEIDRA Administration Insulin Human Lispro 5 unit 01/04/25 18:00 01/05/25 05:58 Insulin Lispro 300 Unit/3 Ml Pen SUBQ 5 unit Q6HR DEIDRA Administration Insulin Human Regular 3 - 11 unit 01/04/25 13:00 01/05/25 05:58 Insulin Regular, Human 300 Unit/3 Ml Pen SUBQ 3 unit Q6HR DEIDRA Administration Protocol Metoprolol Tartrate 25 mg 01/04/25 21:00 01/05/25 09:42 Metoprolol Tartrate 25 Mg Tablet NG 25 mg BID DEIDRA Administration Ondansetron HCl 4 mg 12/28/24 18:08 Ondansetron Odt 4 Mg Tablet TL Q6HR PRN Nausea / Vomiting Ondansetron HCl 4 mg 12/28/24 18:08 Ondansetron 4 Mg/2 Ml Vial IVP Q6HR PRN Nausea / Vomiting Pantoprazole Sodium 40 mg 01/04/25 09:00 01/05/25 09:43 Pantoprazole 40 Mg Vial IVP 40 mg BID DEIDRA Administration Sodium Chloride 10 ml 12/29/24 01:00 01/05/25 09:43 Sodium Chloride Flush 0.9% 10 Ml Syringe IVP 10 ml 0100,0900,1700 DEIDRA Administration Objective Vital Signs/Intake & Output Reviewed Vital Signs: Yes Vital Signs: Vital Signs x48h Temp Pulse Pulse Resp BP BP Pulse Ox 01/05/25 09:42 119 H 106/73 01/05/25 09:00 123 H 34 H 106/73 93 01/05/25 08:00 99.3 F 115 H 32 H 124/59 L 92 01/05/25 07:00 01/05/25 07:00 113 H 29 H 101/53 L 94 01/05/25 06:17 97.7 F 120 H 40 H 103/52 L 97 01/05/25 05:30 100.9 F H 01/05/25 05:00 99.7 F 111 H 42 H 102/42 L 95 01/05/25 04:00 120 H 42 H 107/53 L 96 01/05/25 03:00 115 H 42 H 124/47 L 95 01/05/25 02:00 105 H 43 H 95/52 L 96 O2 Flow Rate 01/05/25 09:42 01/05/25 09:00 6 01/05/25 08:00 6 01/05/25 07:00 6 01/05/25 07:00 6 01/05/25 06:17 6 01/05/25 05:30 01/05/25 05:00 6 01/05/25 04:00 6 01/05/25 03:00 6 01/05/25 02:00 6 Intake & Output: Intake & Output 01/02/25 01/03/25 01/04/25 01/05/25 23:59 23:59 23:59 23:59 Intake Total 2690 / 2690 3173 / 3173 3693 / 3693 730 / 730 Output Total 2215 / 2215 2415 / 2415 2355 / 2355 700 / 700 Balance 475 / 475 758 / 758 1338 / 1338 30 / 30 Weight (kg) 98.5 kg 98 kg 99.5 kg 99 kg Objective General Appearance: positive Moderate distress, Lethargic and Other (Unsettled and confused) Eyes Bilateral: positive PERRL (sluggish), No lid inflammation, Conjunctivae nml, No scleral icterus and Other (Delayed tracking of objects) ENT: positive ENT inspection nml Neck: positive Nml inspection, No JVD and Trachea midline Respiratory: positive Chest non-tender, Breath sounds nml and Other (Tachypneic) Cardiovascular: positive No murmur, No gallop, Irregularly irregular and Tachycardia Abdomen: positive Non-tender, No organomegaly, Nml bowel sounds and No distention Skin: positive Color nml, No rash, Warm, Dry and Other Extremities: positive Non-tender and Other (Right foot has thick calluses and onychomycosis of all toes, but no open lesion/ ulcer. Stasis dermatitis present bilaterally on LE. Edema is mild. ) Neurologic/Psychiatric: positive Oriented x3, CN's nml (2-12) and Other (Motor function was rigid and uncoordinated. Bilateral resting tremor of hands. Left sided neglect noted. RUE moves spontaneously, LUE with random movement as well, diminished. Bilateral lower extremity with no movement even to painful stimuli.) Lab Results 01/05/25 04:31 01/05/25 10:55 Other Labs: Lab Results x24hrs 01/05/25 01/05/25 01/04/25 Range/Units 05:57 04:31 23:56 WBC 27.1 H (4.8-10.8) x10^3/uL RBC 4.09 L (4.70-6.10) 10^6/uL Hgb 11.9 L (14.0-18.0) g/dL Hct 38.4 L (42.0-52.0) % MCV 93.9 (80.0-94.0) fL MCH 29.1 (27.0-31.0) pg MCHC 31.0 L (32.0-36.0) g/dL RDW 15.9 H (12.0-15.0) % Plt Count 155 (130-450) 10^3/uL MPV 12.9 H (7.4-11.4) fL Sodium 152 H (135-145) mmol/L Potassium 3.9 (3.5-4.5) mmol/L Chloride 120 H* (101-111) mmol/L Carbon Dioxide 25 (21-32) mmol/L Anion Gap 7.0 (6-13) BUN 76 H (6-20) mg/dL Creatinine 2.0 H (0.6-1.3) mg/dL Estimated GFR (MDRD) 33 L (>89) Glucose 169 H (74-104) mg/dL POC Whole Bld Glucose 165 183 (70-100) mg/dL Calcium 7.8 L (8.5-10.3) mg/dL Magnesium 2.8 H (1.7-2.3) mg/dL 01/04/25 01/04/25 01/04/25 Range/Units 20:28 18:04 15:00 WBC (4.8-10.8) x10^3/uL RBC (4.70-6.10) 10^6/uL Hgb (14.0-18.0) g/dL Hct (42.0-52.0) % MCV (80.0-94.0) fL MCH (27.0-31.0) pg MCHC (32.0-36.0) g/dL RDW (12.0-15.0) % Plt Count (130-450) 10^3/uL MPV (7.4-11.4) fL Sodium 153 H (135-145) mmol/L Potassium 3.7 (3.5-4.5) mmol/L Chloride 121 H* (101-111) mmol/L Carbon Dioxide 26 (21-32) mmol/L Anion Gap 6.0 (6-13) BUN 85 H* (6-20) mg/dL Creatinine 2.1 H (0.6-1.3) mg/dL Estimated GFR (MDRD) 31 L (>89) Glucose 174 H (74-104) mg/dL POC Whole Bld Glucose 168 196 (70-100) mg/dL Calcium 8.3 L (8.5-10.3) mg/dL Magnesium (1.7-2.3) mg/dL 01/04/25 01/04/25 01/04/25 Range/Units 12:08 12:03 11:19 WBC (4.8-10.8) x10^3/uL RBC (4.70-6.10) 10^6/uL Hgb (14.0-18.0) g/dL Hct (42.0-52.0) % MCV (80.0-94.0) fL MCH (27.0-31.0) pg MCHC (32.0-36.0) g/dL RDW (12.0-15.0) % Plt Count (130-450) 10^3/uL MPV (7.4-11.4) fL Sodium 155 H* (135-145) mmol/L Potassium 3.7 (3.5-4.5) mmol/L Chloride 121 H* (101-111) mmol/L Carbon Dioxide 27 (21-32) mmol/L Anion Gap 7.0 (6-13) BUN 86 H* (6-20) mg/dL Creatinine 2.0 H (0.6-1.3) mg/dL Estimated GFR (MDRD) 33 L (>89) Glucose 150 H (74-104) mg/dL POC Whole Bld Glucose 131 135 (70-100) mg/dL Calcium 8.4 L (8.5-10.3) mg/dL Magnesium (1.7-2.3) mg/dL Diagnostic Imaging Diagnostic Imaging Results: positive Final report reviewed ABX Reporting Has patient been on IV antibiotics over the past 48 hours?: Yes Assessment/Plan Problem List (1) CVA (cerebral vascular accident): Impression: MRI with hyperintensity on diffusion correlating hypointensity on ADC the right parietal occipital lobe, with scattered areas of similar intensity in the left occipital lobe as well as scattered punctate areas in the frontal lobes bilaterally, left temporal, left parietal lobe. Spoke with Dr. Mays, [place] [facility]. Recommend CTA when more stable, to see if addition of a antiplatelet is necessary. Okay to restart anticoagulation at this time. Continue aspirin and statin. Decreased movement of upper extremities this morning, repeat CT head ordered, does show evolving acute to subacute infarction right parietal occipital lobes and left occipital lobe, no intracranial bleed, no midline shift or mass effect. As this is now a large infarct, taking over more than half of the territory of the posterior cerebral artery based on imaging, as well as clinical findings of a large stroke, Eliquis has now been held due to risk of hemorrhagic conversion. Plan is to discuss comfort care/hospice care with the family today. Qualifiers: CVA mechanism: unspecified Qualified Code(s): I63.9 - Cerebral infarction, unspecified (2) Sepsis: Impression: Patient became more hypotensive, tachycardic, tachypneic, febrile. Blood cultures sent on 01/01. 2 out of 2 positive for MSSA. Repeat blood cultures ordered 01/03 were also positive for gram positive cocci. Patient was on vancomycin, cefepime as well as Flagyl - was intially switched to cefazolin only, switched to vancomycin today pending susceptibilities of repeat blood cultures. With repeat cultures being positive, there is concern for endocarditis. Patient will likely need NAHUN, transfer to acute care hospital with NAHUN capabilities as well as infectious disease consult. I spoke with the family regarding this, and they would not like this patient to be transferred at this time. They do not want further escalation of care at this time. Continue gentle IV fluid boluses. Qualifiers: Acute renal failure type: unspecified Sepsis acute organ dysfunction status: with acute organ dysfunction Sepsis type: sepsis due to unspecified organism Severe sepsis acute organ dysfunction type: acute renal failure S evere sepsis shock status: without septic shock Qualified Code(s): A41.9 - Sepsis, unspecified organism; R65.20 - Severe sepsis without septic shock; N17.9 - Acute kidney failure, unspecified (3) Hypernatremia: Impression: Patient persistently hypernatremic. Free water deficit of 3.4 L. Started free water boluses through NG tube as well as D5W. Continue to trend BMP every 2-4 hours, improving. Continue glucose checks every hour. (4) Atrial fibrillation with rapid ventricular response: Impression: Patient with improved rates of atrial fibrillation with RVR. Restarted oral metoprolol yesterday down NG tube. Continue Eliquis. Continue gentle IV fluid boluses. (5) Acute metabolic encephalopathy: Impression: Likely attributed to diffuse strokes noted on MRI. Contributing factors could be hypernatremia, acute kidney injury with uremia, as well as sepsis with Staph aureus bacteremia. Once these are resolved, can assess neurological function more appropriately. Family is leaning towards Hospice; informational was done. (6) Leukocytosis: Impression: Patient actively septic. See above. Qualifiers: Leukocytosis type: unspecified Qualified Code(s): D72.829 - Elevated white blood cell count, unspecified (7) Hematoma: Impression: Right flank hematoma, stable. Hemoglobin is stable at this time. (8) Diabetic foot ulcer: Impression: On exam, no open lesions were noted on either foot. He has thick calluses on pressure points of his right foot and onychomycosis bilaterally. Qualifiers: Diabetes mellitus type: type 2 Diabetic foot ulcer location: heel L aterality: unspecified laterality Non-pressure ulcer stage: unspecified non- pressure ulcer stage Qualified Code(s): E11.621 - Type 2 diabetes mellitus with foot ulcer; L97.409 - Non-pressure chronic ulcer of unspecified heel and midfoot with unspecified severity (9) Back pain: Impression: Lumbar Spine CT: multilevel degenerative changes most notably L3-4, L4-5, L5- S1. Stable. Thoracic Spine CT: No acute osseous abnormalities are seen involving the thoracic spine. Qualifiers: Back pain laterality: unspecified Back pain location: back pain in unspecified location Chronicity: unspecified Qualified Code(s): M54.9 - Dorsalgia, unspecified (10) CHF (congestive heart failure): Impression: Patient with persistent tachypnea. Chest x-ray completed with no effusions or infiltrates noted. May be central process due to CVAs. Trialed BiPAP without much relief. Currently on 6L oximizer with respiratory rate of 30-40. May use morphine sparingly for tachypnea if required. Qualifiers: Heart failure chronicity: acute Heart failure type: unspecified Q ualified Code(s): I50.9 - Heart failure, unspecified (11) Uncontrolled type 2 diabetes mellitus: Impression: A1c of 9.3%. Increase insulin regimen to 20 units in the morning, 20 units of insulin Lantus at night. Sliding scale insulin also included. Required insulin drip with D5W infusion for hypernatremia; wean off. Qualifiers: Glycemic state: with hyperglycemia Qualified Code(s): E11.65 - Type 2 diabetes mellitus with hyperglycemia (12) HTN (hypertension): Impression: Currently hypotensive. Continue to monitor. Qualifiers: Hypertension type: unspecified Qualified Code(s): I10 - Essential (primary) hypertension
[2025-01-05 11:19] LABS: CALCIUM 7.7 mg/dL (8.5-10.3); CREATININE 2.1 mg/dL (0.6-1.3); POTASSIUM 3.9 mmol/L (3.5-4.5)
[2025-01-05] MEDS ORDERED: LORazepam 1 MG TABLET PO PRN (17:39)
[2025-01-05] MEDS ORDERED: haloperidoL 1 MG TABLET PO PRN (17:39)
[2025-01-05] MEDS: MORPHINE 2 MG/ML CARPUJECT IVP PRN (18:00)
[2025-01-05] MEDS: SCOPOLAMINE PATCH TOP SCH (18:00)
[2025-01-06] MEDS ORDERED: VANCOMYCIN INJ 1 GM, VANCOMYCIN INJ 250 MG in SODIUM CHLORIDE 0.9% 250 ML IV SCH (10:30)
[2025-01-06] MEDS ORDERED: LORazepam 2 MG/ML VIAL IVP PRN (11:19)
[2025-01-06] MEDS ORDERED: HALOPERIDOL 5 MG/ML VIAL IVP PRN (11:19)
[2025-01-06 14:41] VITALS: BP 96/43
--- NOTE | 2025-01-06 18:24 | PROVIDER PROGRESS NOTE ---
Subjective Prog Note Date Prog Note Date: 01/06/25 Prog Note Time: 09:15 Subjective Pt reports feeling: No change Current Medications Current Medications Current Medications: Current Medications Generic Name Dose Route Start Last Admin Trade Name Freq PRN Reason Stop Dose Admin Haloperidol 1 mg 01/06/25 11:19 Haloperidol 5 Mg/Ml Vial IVP Q6H PRN Agitation Lorazepam 1 mg 01/06/25 11:19 Lorazepam 2 Mg/Ml Vial IVP Q2H PRN Anxiety Morphine Sulfate 2 mg 01/05/25 17:39 01/06/25 09:24 Morphine 2 Mg/Ml Carpuject IVP 2 mg Q2HR PRN Administration Severe Pain (Level 7-10)/ SOA Ondansetron HCl 4 mg 12/28/24 18:08 Ondansetron Odt 4 Mg Tablet TL Q6HR PRN Nausea / Vomiting Ondansetron HCl 4 mg 12/28/24 18:08 Ondansetron 4 Mg/2 Ml Vial IVP Q6HR PRN Nausea / Vomiting Scopolamine HBr 1 patch 01/05/25 18:00 01/05/25 18:00 Scopolamine Patch TOP 1 patch Q3D DEIDRA Administration Sodium Chloride 10 ml 12/29/24 01:00 01/06/25 05:44 Sodium Chloride Flush 0.9% 10 Ml Syringe IVP 10 ml 0100,0900,1700 DEIDRA Administration Objective Vital Signs/Intake & Output Reviewed Vital Signs: Yes Vital Signs: Vital Signs x48h Pulse Resp BP Pulse Ox 01/06/25 14:00 131 H 36 H 96/43 L 89 L Intake & Output: Intake & Output 01/03/25 01/04/25 01/05/25 01/06/25 23:59 23:59 23:59 23:59 Intake Total 3173 / 3173 3693 / 3693 3299 / 3299 Output Total 2415 / 2415 2355 / 2355 1930 / 1930 820 / 820 Balance 758 / 758 1338 / 1338 1369 / 1369 -820 / -820 Weight (kg) 98 kg 99.5 kg 99 kg Objective General Appearance: positive No acute distress, Lethargic and Other (Unsettled and confused, unresponsive to verbal communication) Eyes Bilateral: positive PERRL (sluggish), No lid inflammation, Conjunctivae nml, No scleral icterus and Other (Delayed tracking of objects) ENT: positive ENT inspection nml Neck: positive Nml inspection, No JVD and Trachea midline Respiratory: positive Chest non-tender, Breath sounds nml and Other (Tachypneic) Cardiovascular: positive No murmur, No gallop, Irregularly irregular and Tachycardia Abdomen: positive Non-tender, No organomegaly, Nml bowel sounds and No distention Skin: positive Color nml, No rash, Warm, Dry and Other Extremities: positive Non-tender and Other (Right foot has thick calluses and onychomycosis of all toes, but no open lesion/ ulcer. Stasis dermatitis present bilaterally on LE. Edema is mild. ) Lab Results 01/05/25 04:31 01/05/25 10:55 Diagnostic Imaging Diagnostic Imaging Results: positive Final report reviewed Assessment/Plan Problem List (1) CVA (cerebral vascular accident): Impression: * MRI with hyperintensity on diffusion correlating hypointensity on ADC the right parietal occipital lobe, with scattered areas of similar intensity in the left occipital lobe as well as scattered punctate areas in the frontal lobes bilaterally, left temporal, left parietal lobe. * Evolving acute to subacute infarction right parietal occipital lobes and left occipital lobe, no intracranial bleed, no midline shift or mass effect. * As this is now a large infarct, taking over more than half of the territory of the posterior cerebral artery based on imaging, as well as clinical findings of a large stroke, Eliquis has now been held due to risk of hemorrhagic conversion. * Patient transitioned to comfort care on 01/05/2025 * Pending inpatient expiration versus discharge to hospice * Continue comfort care orders Qualifiers: CVA mechanism: unspecified Qualified Code(s): I63.9 - Cerebral infarction, unspecified (2) Sepsis: Qualifiers: Sepsis type: sepsis due to unspecified organism Sepsis acute organ dysfunction status: with acute organ dysfunction Severe sepsis acute organ dysfunction type: acute renal failure Acute renal failure type: unspecified S evere sepsis shock status: without septic shock Qualified Code(s): A41.9 - Sepsis, unspecified organism; R65.20 - Severe sepsis without septic shock; N17.9 - Acute kidney failure, unspecified (3) Hypernatremia: (4) Atrial fibrillation with rapid ventricular response: (5) Acute metabolic encephalopathy: (6) Leukocytosis: Qualifiers: Leukocytosis type: unspecified Qualified Code(s): D72.829 - Elevated white blood cell count, unspecified (7) Hematoma: (8) Diabetic foot ulcer: Qualifiers: Diabetic foot ulcer location: heel Diabetes mellitus type: type 2 L aterality: unspecified laterality Non-pressure ulcer stage: unspecified non- pressure ulcer stage Qualified Code(s): E11.621 - Type 2 diabetes mellitus with foot ulcer; L97.409 - Non-pressure chronic ulcer of unspecified heel and midfoot with unspecified severity (9) Back pain: Qualifiers: Back pain location: back pain in unspecified location Chronicity: u nspecified Back pain laterality: unspecified Qualified Code(s): M54.9 - Dorsalgia, unspecified (10) CHF (congestive heart failure): Qualifiers: Heart failure chronicity: acute Heart failure type: unspecified Q ualified Code(s): I50.9 - Heart failure, unspecified (11) Uncontrolled type 2 diabetes mellitus: Qualifiers: Glycemic state: with hyperglycemia Qualified Code(s): E11.65 - Type 2 diabetes mellitus with hyperglycemia (12) HTN (hypertension): Qualifiers: Hypertension type: unspecified Qualified Code(s): I10 - Essential (primary) hypertension
[2025-01-07 08:11] VITALS: O2SAT 88
[2025-01-07 09:27] VITALS: TEMP 99
--- NOTE | 2025-01-07 16:40 | PROVIDER PROGRESS NOTE ---
Subjective Prog Note Date Prog Note Date: 01/07/25 Prog Note Time: 16:38 Subjective Pt reports feeling: No change Subjective: Patient is not communicating verbally but appears to be relativelycomfortable Current Medications Current Medications Current Medications: Current Medications Generic Name Dose Route Start Last Admin Trade Name Freq PRN Reason Stop Dose Admin Haloperidol 1 mg 01/06/25 11:19 Haloperidol 5 Mg/Ml Vial IVP Q6H PRN Agitation Lorazepam 1 mg 01/06/25 11:19 Lorazepam 2 Mg/Ml Vial IVP Q2H PRN Anxiety Morphine Sulfate 2 mg 01/05/25 17:39 01/06/25 09:24 Morphine 2 Mg/Ml Carpuject IVP 2 mg Q2HR PRN Administration Severe Pain (Level 7-10)/ SOA Ondansetron HCl 4 mg 12/28/24 18:08 Ondansetron Odt 4 Mg Tablet TL Q6HR PRN Nausea / Vomiting Ondansetron HCl 4 mg 12/28/24 18:08 Ondansetron 4 Mg/2 Ml Vial IVP Q6HR PRN Nausea / Vomiting Scopolamine HBr 1 patch 01/05/25 18:00 01/05/25 18:00 Scopolamine Patch TOP 1 patch Q3D DEIDRA Administration Sodium Chloride 10 ml 12/29/24 01:00 01/07/25 11:31 Sodium Chloride Flush 0.9% 10 Ml Syringe IVP 10 ml 0100,0900,1700 DEIDRA Administration Objective Vital Signs/Intake & Output Reviewed Vital Signs: Yes Vital Signs: Vital Signs x48h Temp Resp 01/07/25 09:23 37.2 C 45 H Intake & Output: Intake & Output 01/04/25 01/05/25 01/06/25 01/07/25 23:59 23:59 23:59 23:59 Intake Total 3693 / 3693 3299 / 3299 1000 / 1000 Output Total 2355 / 2355 1930 / 1930 1520 / 1520 475 / 475 Balance 1338 / 1338 1369 / 1369 -520 / -520 -475 / -475 Weight (kg) 99.5 kg 99 kg Objective General Appearance: positive No acute distress, Lethargic and Other (Unsettled and confused, unresponsive to verbal communication) Eyes Bilateral: positive PERRL (sluggish), No lid inflammation, Conjunctivae nml, No scleral icterus and Other (Delayed tracking of objects) ENT: positive ENT inspection nml Neck: positive Nml inspection, No JVD and Trachea midline Respiratory: positive Chest non-tender, Breath sounds nml and Other (Tachypneic) Cardiovascular: positive No murmur, No gallop, Irregularly irregular and Tachycardia Abdomen: positive Non-tender, No organomegaly, Nml bowel sounds and No distention Skin: positive Color nml, No rash, Warm, Dry and Other Extremities: positive Non-tender and Other (Right foot has thick calluses and onychomycosis of all toes, but no open lesion/ ulcer. Stasis dermatitis present bilaterally on LE. Edema is mild. ) Lab Results 01/05/25 04:31 01/05/25 10:55 Diagnostic Imaging Diagnostic Imaging Results: positive Final report reviewed Assessment/Plan Problem List (1) CVA (cerebral vascular accident): Impression: * MRI with hyperintensity on diffusion correlating hypointensity on ADC the right parietal occipital lobe, with scattered areas of similar intensity in the left occipital lobe as well as scattered punctate areas in the frontal lobes bilaterally, left temporal, left parietal lobe. * Evolving acute to subacute infarction right parietal occipital lobes and left occipital lobe, no intracranial bleed, no midline shift or mass effect. * As this is now a large infarct, taking over more than half of the territory of the posterior cerebral artery based on imaging, as well as clinical findings of a large stroke, Eliquis has now been held due to risk of hemorrhagic conversion. * Patient transitioned to comfort care on 01/05/2025 * Pending inpatient expiration versus discharge to hospice * Does not appear to be imminent at this time * Continue comfort care orders Qualifiers: CVA mechanism: unspecified Qualified Code(s): I63.9 - Cerebral infarction, unspecified (2) Sepsis: Qualifiers: Sepsis type: sepsis due to unspecified organism Sepsis acute organ dysfunction status: with acute organ dysfunction Severe sepsis acute organ dysfunction type: acute renal failure Acute renal failure type: unspecified S evere sepsis shock status: without septic shock Qualified Code(s): A41.9 - Sepsis, unspecified organism; R65.20 - Severe sepsis without septic shock; N17.9 - Acute kidney failure, unspecified (3) Hypernatremia: (4) Atrial fibrillation with rapid ventricular response: (5) Acute metabolic encephalopathy: (6) Leukocytosis: Qualifiers: Leukocytosis type: unspecified Qualified Code(s): D72.829 - Elevated white blood cell count, unspecified (7) Hematoma: (8) Diabetic foot ulcer: Qualifiers: Diabetic foot ulcer location: heel Diabetes mellitus type: type 2 L aterality: unspecified laterality Non-pressure ulcer stage: unspecified non- pressure ulcer stage Qualified Code(s): E11.621 - Type 2 diabetes mellitus with foot ulcer; L97.409 - Non-pressure chronic ulcer of unspecified heel and midfoot with unspecified severity (9) Back pain: Qualifiers: Back pain location: back pain in unspecified location Chronicity: u nspecified Back pain laterality: unspecified Qualified Code(s): M54.9 - Dorsalgia, unspecified (10) CHF (congestive heart failure): Qualifiers: Heart failure chronicity: acute Heart failure type: unspecified Q ualified Code(s): I50.9 - Heart failure, unspecified (11) Uncontrolled type 2 diabetes mellitus: Qualifiers: Glycemic state: with hyperglycemia Qualified Code(s): E11.65 - Type 2 diabetes mellitus with hyperglycemia (12) HTN (hypertension): Qualifiers: Hypertension type: unspecified Qualified Code(s): I10 - Essential (primary) hypertension
--- NOTE | 2025-01-08 03:48 | PROVIDER PROGRESS NOTE ---
Cake Batter Mixer Note Cake Batter Mixer Note Cake Batter Mixer Note: Notified by nurse of the following "Pt in for comfort care. This RN notifying provider that pt has passed. 2 RN check performed and found no signs of life @ 0325."
--- NOTE | 2025-01-08 07:24 | Discharge Summary ---
Discharge Summary Admit Date: 12/27/24 Discharge Date: 01/08/25 DIAGNOSES Admission Diagnoses: A-fib with RVR Hematoma Acute hyponatremia CHF Uncontrolled type 2 diabetes Leukocytosis Diabetic foot ulcer Hypertension Chronic back pain Discharge Diagnoses with Status of Each Condition: CVApatient HPI History of Present Illness: Patient is a 69 year old man with history of CHF, afib, diabetes type II, diabetic ulcers that is being admitted to ICU for afib with RVR. Patient states he had an episode of blurry vision and dizziness which led to him falling in the shower 5 days ago. Denies hitting his head, denies loss of consciousness. For the days following, he had a lack of appetite and did not eat anything besides grapes and felt incredibly thirsty, drinking more water than normal. After days of feeling weak and right sided flank pain from the fall, he came to ER yesterday. Patient notes having episodes of dizziness and blurry vision about once a month. In addition to right flank pain, he notes pain between his shoulder blades starting sometime after the fall, unable to specify. Patient also has a history of uncontrolled diabetes. He does not know his a1c and does not check his blood sugars. He reports diabetic foot ulcer on his right foot, for which he sees wound care in [place] once a week. He states he is able to walk around the house without a walker or cane. Completes IADLs independently. Patient reports shortness of breath with exertion, orthopnea, and worsening pedal edema over the past two years. Last echo from 2022 was borderline for CHF, but indicated enlarged atria from atrial fibrillation. Patient denies chest pain, palpitations. He states he cannot tell when he is in afib.He was found to be in afib when he came to the Er. Patient denies nausea, vomiting, current dizziness, current blurry vision, fever, cough, polyphagia, polyuria, sweating. His PCP is Dr. Garcia at the [facility]. He does not have a snuff maker. Reports family history of DMT2 in his father. Never smoker. Denies alcohol intake. HOSPITAL COURSE Hospital Course: Patient is a 69-year-old male with a history of heart failure with diastolic impairment, atrial fibrillation with RVR, unclear anticoagulation status, medication noncompliance who initially presented for fatigue, as well as a recent fall. Initially, he was being treated for atrial fibrillation with RVR. While here, he had a stroke. Initial MRI demonstrated multifocal areas of hyperintensity on diffusion sequence consistent with acute/subacute ischemia, likely cardioembolic. He then became septicinitial blood cultures grew MSSA. Repeat blood cultures at 48 hours also grew gram-positive cocci. He is currently being treated with vancomycin. He remains febrile, tachypneic, and his leukocytosis is worsening. He needs a NAHUN to assess for endocarditis, and this was discussed with family, who did not want to transfer him at this time. Family decided to transition the patient to comfort care on 01/05/2025. He was maintained on comfort care regimen. He peacefully with family nearby on 03:25 on 01/08/2025. ALLERGIES Allergies Allergy/AdvReac Type Severity Reaction Status Date / Time piperacillin (From Zosyn) Allergy Mild Rash Verified 12/27/24 17:20 tazobactam (From Zosyn) Allergy Mild Rash Verified 12/27/24 17:20 MEDICATIONS Ambulatory Orders Medication Instructions Recorded Confirmed insulin glargine 100 unit/mL (3 36 unit subcut QPM 03/31/23 12/29/24 mL) subcutaneous pen (Lantus Solostar U-100 Insulin) lisinopril 40 mg tablet 40 mg PO DAILY 12/29/24 12/29/24 metformin 1,000 mg tablet 1,000 mg PO BID 12/29/24 12/29/24 metoprolol tartrate 25 mg tablet 75 mg PO BID 12/29/24 12/29/24 LABS 01/05/25 04:31 01/05/25 10:55 TIME SPENT Time Spent in Discharge (Minutes): 30 Discharge Plan Discharge Patient Disposition: 20 Print Language: Croatian Date/Time: 01/08/25 03:25
== END 2025-01-08 07:52 | disposition expired | DRG 308 ==
LOC: ICU 16:56 → ED 16:56 → ICU 12-28 18:50 → MS3 12-31 02:14 → ICU 12-31 02:37 → MS3 12-31 06:49 → ICU 01-01 18:01 → MS2 01-06 17:02
PROVIDERS: ADMIT Specialist; ATTEND Specialist